=== PATIENT | female | born 1975 | race Caucasian/White ===

== ENCOUNTER → 2022-09-21 12:40 | Outpatient (BNVA) | payer SELFPAY | PROVIDERS: PCP Internal Medicine | DX: Z02.83 Encounter for blood-alcohol and blood-drug test (principal) ==

== ENCOUNTER 2023-08-25 08:18 | Outpatient (AMB) | payer OTHER, SELFPAY ==
--- NOTE | 2023-08-25 08:23 | A.OFFPC_ITS ---
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: No Is last menstrual period known: No Allergies Sulfa (Sulfonamide Antibiotics) Allergy (Unknown, Verified 08/25/23 08:30) Rash tramadol Allergy (Unknown, Verified 08/25/23 08:30) Rash venlafaxine [From Effexor] Allergy (Unknown, Verified 08/25/23 08:30) Rash Tobacco use date assessed: 08/25/23 Dental Screening Dental Screen Date: 08/25/23 Did you have a dental visit in the last 12 months?: Yes Did you have a dental problem in the last 6 months where you did not have access to dental care?: No Was dental information given to patient?: Patient has dentist HPI HPI Comments History of Present Illness Details This is a 48 year old female with a past medical history of hypertension, anxiety & depression, ddd cervical spine, presenting for follow up Presented in Jan 2023 with hypertensive urgency, headaches, tachycardia and tremor. 24 urine with elevated metanephrines. Seen by endocrinology Dr Dockery and in neuroendocrine [facility] [place]. Patient has imaging with adrenal thickening. Empty sella on MRI brain. Has had intermittent elevation in metanephrines. Symptoms and striae concerning for hypercortisolism but labs have not revealed such. She is to repeat labs in 3 months. She continues to have intermittent issues with headaches, vision changes, weakness, striae, skin ulceration, palpitations, anxiety, variable BP. -Family history of medullary thyroid can cer. 1st cousin. Family history (sister) MGUS, mast cell disorder MSK: Worsened bilateral upper exremity neuropathy. History of neck surgery. On oxycodone Anxiety/Insomnia: stable on current medications ROS see HPI PHYSICAL EXAM: GENERAL: Alert and oriented x 3. NAD EYES: EOMI. Anicteric. HENT: Moist mucous membranes. No scleral icterus. No cervical lymphadenopathy. LUNGS: Clear to auscultation bilaterally. CARDIOVASCULAR: Regular rate and rhythm. No murmur. No JVD. ABDOMEN: Soft, non-tender +bs EXTREMITIES: No edema. Non-tender. SKIN: Facial flushing NEUROLOGIC: No focal neurological deficits. CN II-XII grossly intact PSYCHIATRIC: Cooperative. 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 1. Little interest or pleasure in doing things: not at all 2. Feeling down, depressed, or hopeless: not at all 3. Trouble falling or staying asleep, or sleeping too much: not at all 4. Feeling tired or having little energy: not at all 5. Poor appetite or overeating: not at all 6. Feeling bad about yourself - or that you are a failure or have let yourself or your family down: not at all 7. Trouble concentrating on things, such as reading the newspaper or watching television: not at all 8. Moving or speaking so slowly that other people could have noticed. Or the opposite - being so fidgety or restless that you have been moving around a lot more than usual: not at all 9. Thoughts that you would be better off or of hurting yourself in some way: not at all Total score: 0 Depression Screening Interpretation: Negative (neg) Depression Screening Done: Yes 38103 - PHQ-9 Billing: Yes Source: Developed by Drs. Efren Gonzalez, Monet Delgadillo, Juan Goldsmith and colleagues, with an educational lonnie from [employer]. Thrive Questionnaire Date Thrive assessed: 08/25/23 I am a: Patient What is your living situation today?: I have a steady place to live Within the past 12 months, did the food you bought not last and you didn't have the money to get more?: Never true Within the past 12 months, did you worry whether your food would run out before you got money to buy more?: Never true Do you have trouble paying for medicines?: No Do you have trouble getting transportation to medical appointments?: No Do you have trouble paying your heating and electricity bill?: No Do you have trouble taking care of your child, family member or friend?: No Do you have trouble with day-to-day activities such as bathing, preparing meals, shopping, managing finances, etc.?: No Are you currently unemployed and looking for a job?: No Are you interested in more education?: No Please select the resources that you would like help with: None Currently or been in a relationship where the following occur: No concerns reported THRIVE Score: 0 AUDIT C Alcohol Use Questionnaire (AUDIT-C) 1. How often do you have a drink containing alcohol?: Monthly or less 2. How many drinks containing alcohol do you have on a typical day when you are drinking?: 1 or 2 3. How often do you have six or more drinks on one occasion?: Never Total Score: 1 PILY-7 AMB Questionnaire PILY-7 Date PILY - 7 assessed: 08/25/23 Feeling nervous, anxious, or on edge: 0 = Not at all Not being able to stop or control worryin = Not at all Worrying too much about different things: 0 = Not at all Trouble relaxin = Not at all Being so restless that it is hard to sit still: 0 = Not at all Becoming easily annoyed or irritable: 0 = Not at all Feeling afraid as if something awful might happen: 0 = Not at all Total PILY-7 score (0-4 normal; 5-9 mild; 10-14 moderate; 15-21 severe): 0 Source: Developed by Drs. Efren Gonzalez, Monet Delgadillo, Juan Goldsmith and colleagues, with an educational lonnie from [employer]. PILY-7 Assessment Billing PILY-7 Assessment Tool: PILY-7 Assessment 27696 Physical exam (Primary Care) Vital Signs: Last Vital Signs Temp 98.1 F 08/25/23 08:36 Pulse 69 08/25/23 08:36 Resp 16 08/25/23 08:36 BP 126/84 08/25/23 08:36 Pulse Ox 96 08/25/23 08:36 Oxygen Delivery Method Room Air 08/25/23 08:36 BMI result Body Mass Index 45.0 Tobacco/Smoking Status: Tobacco use Status Tobacco use date assessed 08/25/23 08/25/23 08:41 Patient Tobacco Use Status Former Tobacco user 08/25/23 08:41 e-Cigarette/Vaping Use Never Used 08/25/23 08:41 PHQ-9: PHQ-9 Score PHQ-9: Total score 0 08/25/23 08:58 Depression Screening Interpretation: Negative (neg) Thrive Assessment: Date of Thrive Assessment Date Thrive assessed 08/25/23 08/25/23 08:41 Currently or been in a relationship where the following occur: No concerns reported Assessment and Plan Assessment & Plan (1) Hypertension: Code(s): I10 - Essential (primary) hypertension Qualifiers: Hypertension type: primary hypertension Qualified Code(s): I10 - Essential (primary) hypertension Plan: controlled on current medications (2) Degenerative disc disease, cervical: Code(s): M50.30 - Other cervical disc degeneration, unspecified cervical region Plan: stable chronic pain, increased upper extremity neuropathy. Declines physiatry/em g (3) Striae: Code(s): L90.6 - Striae atrophicae Plan: continue lab testing continue dermatology follow up (4) Abnormal cortisol level: Code(s): R79.89 - Other specified abnormal findings of blood chemistry (5) Rash: Code(s): R21 - Rash and other nonspecific skin eruption Orders: Orders Cortisol Random 4 Weeks L90.6 - Striae atrophicae, R79.89 - Other specified abnormal findings of blood chemistry Vitamin B12 and Folate Today G62.9 - Polyneuropathy, unspecified, L90.6 - Striae atrophicae, M50.30 - Other cervical disc degeneration, unspecified cervical region, R79.89 - Other specified abnormal findings of blood chemistry DALE Reflex Titer and Pattern Today G62.9 - Polyneuropathy, unspecified, L90.6 - Striae atrophicae, M50.30 - Other cervical disc degeneration, unspecified cervical region, R79.89 - Other specified abnormal findings of blood chemistry Complete Blood Count Auto Diff Today G62.9 - Polyneuropathy, unspecified, L90.6 - Striae atrophicae, M50.30 - Other cervical disc degeneration, unspecified cervical region, R79.89 - Other specified abnormal findings of blood chemistry Cortisol Random Today L90.6 - Striae atrophicae, R79.89 - Other specified abnormal findings of blood chemistry Cortisol Random 8 Weeks L90.6 - Striae atrophicae, R79.89 - Other specified abnormal findings of blood chemistry Hemoglobin A1c Today G62.9 - Polyneuropathy, unspecified, L90.6 - Striae atrophicae, M50.30 - Other cervical disc degeneration, unspecified cervical region, R79.89 - Other specified abnormal findings of blood chemistry ANCA Vasculitides Today G62.9 - Polyneuropathy, unspecified, L90.6 - Striae atrophicae, M50.30 - Other cervical disc degeneration, unspecified cervical region, R79.89 - Other specified abnormal findings of blood chemistry Comprehensive Met. Panel Today G62.9 - Polyneuropathy, unspecified, L90.6 - Striae atrophicae, M50.30 - Other cervical disc degeneration, unspecified cervical region, R79.89 - Other specified abnormal findings of blood chemistry Tryptase Today R21 - Rash and other nonspecific skin eruption T Spot TB Today R05.9 - Cough, unspecified Medications: New semaglutide (weight loss) (Isai) administer weeks 5 through 8 of therapy 0.5 mg (0.5 mL) subcut QWEEK 6 mL 0RF Changed From alprazolam 1-2 tab orally every 12 hours PRN anxiety. Not to be taken within 6 hours of valium 20 tabs 0RF anxiety To alprazolam (2 x 0.5 mg) 1 mg orally every 12 hours PRN; anxiety. Not to be taken within 6 hours of valium 30 days 60 tabs 0RF anxiety Refilled oxycodone Partial Fill upon patient request. ok for self pay 5 mg PO Q6H 28 days PRN 112 tabs 0RF pain Coding Level of Care Code Est Pt Level 5 (54882) Complex EM visit Add On G2211 Diagnoses Primary hypertension I10 Hypertension type: primary hypertension Degenerative disc disease, cervical M50.30 Striae L90.6 Abnormal cortisol level R79.89 Rash R21 Additional Codes PILY-7 Assessment Billing - PILY-7 Assessment Tool: PILY-7 Assessment [id number] ([id number]) Time Spent (min) 65
[2023-08-25 08:36] VITALS: BP 126/84; PULSE 69; RESP 16; TEMP 36.7; O2SAT 96; BMI 45.0
== END 2023-08-25 09:28 | disposition home or self-care (01) ==
PROVIDERS: Visit Provider Internal Medicine
DX: I10 Essential (primary) hypertension (principal); M50.30 Other cervical disc degeneration, unspecified cervical region; L90.6 Striae atrophicae; R79.89 Other specified abnormal findings of blood chemistry; R21 Rash and other nonspecific skin eruption
CPT/HCPCS: 99215; 99417; G2211

== ENCOUNTER 2023-08-25 09:46 | Outpatient (REF) | payer OTHER, SELFPAY ==
[2023-08-25 13:56] LABS: MANUAL DIFF FLAG NO
[2023-08-25 14:05] LABS: Basophils Percent Auto 0.6 % (0-2); Eosinophils Absolute Auto 0.2 X10*3/uL (0.0-0.4); Eosinophils Percent Auto 3.3 % (0-4); Hematocrit 38.2 % (37.0-47.0); Hemoglobin 12.6 g/dl (12.0-16.0); Imm Gran Abs Auto 0.03 X10*3/uL (0.00-0.03); Imm Gran Pct Auto 0.4 % (0.0-0.4); Lymphocytes Absolute Auto 1.8 X10*3/uL (1.2-4.9); Lymphocytes Percent Auto 25.7 % (20-40); Mean Corpuscular Hemoglobin 30.2 pg (27.0-33.0); Mean Corpuscular Volume 91.6 fL (80.0-98.0); Mean Platelet Volume 9.8 fL (9.4-12.3); Monocytes Absolute Auto 0.4 X10*3/uL (0.1-1.2); Neutrophils Absolute Auto 4.6 x10*3/uL (2.0-8.3); Platelet Count 374 X10*3/uL (160-400); Red Blood Count 4.17 X10*6/uL (4.20-5.50); Red Cell Distribution Width 13.7 % (11.0-16.0); White Blood Count 7.1 X10*3/uL (4.8-10.8)
[2023-08-25 15:03] LABS: Estimated Average Glucose 111 mg/dL; Hemoglobin A1c % 5.5 % (<6.0)
[2023-08-25 21:00] LABS: Alanine Aminotransferase 26 U/L (0-31); Alkaline Phosphatase 71 U/L (39-117); Anion Gap 15 (12-20); Aspartate Amino Transferase 24 U/L (5-31); Bilirubin Total 0.4 mg/dL (0.0-1.0); Blood Urea Nitrogen 9 mg/dL (9-16); Calcium 9.3 mg/dL (8.4-10.2); Carbon Dioxide 27 mmol/L (22-29); Chloride 103 mmol/L (96-108); Estimated Glomerular Filt Rate > 60; Glucose Random 96 mg/dL (60-115); Potassium 3.8 mmol/L (3.3-5.1); Sodium 141 mmol/L (135-145); Total Protein 6.8 g/dL (6.5-8.0)
[2023-08-25 21:26] LABS: Folate 3.2 ng/mL (> or = 4.0); Vitamin B12 235 pg/mL (200-900)
[2023-08-25 22:05] LABS: Cortisol Random 11.6 ug/dL
[2023-08-27 21:43] LABS: TS Negative Control Passed; TS Panel A 2; TS Panel B 2; TS Positive Control Passed; TSpotTB Negative (Negative)
[2023-08-28 21:13] LABS: Myeloperoxidase Antibody <1.0 AI; Proteinase 3 PR3 Antibodies <1.0 AI
[2023-09-01 09:28] LABS: Anti Nuclear Antibody Screen NEGATIVE (NEGATIVE)
== END 2023-08-25 09:47 | disposition home or self-care (01) ==
LOC: HO.WFDLDS 09:46
PROVIDERS: Visit Provider Internal Medicine
DX: R79.89 Other specified abnormal findings of blood chemistry (principal); L90.6 Striae atrophicae; M50.30 Other cervical disc degeneration, unspecified cervical region; G62.9 Polyneuropathy, unspecified; R05.9 Cough, unspecified; R21 Rash and other nonspecific skin eruption; R94.6 Abnormal results of thyroid function studies
CPT/HCPCS: 36415; 80053; 82533; 82607; 82746; 83036; 83520; 84443; 85025; 86021; 86038; 86481

== ENCOUNTER 2023-11-10 15:50 | Outpatient (AMB) | payer OTHER, SELFPAY ==
--- NOTE | 2023-11-10 14:54 | A.OFFPC_ITS ---
Intake Visit Reasons: neck/head pain Intake Note: Neck and head pain Allergies Sulfa (Sulfonamide Antibiotics) Allergy (Unknown, Verified 11/10/23 15:39) Rash tramadol Allergy (Unknown, Verified 11/10/23 15:39) Rash venlafaxine [From Effexor] Allergy (Unknown, Verified 11/10/23 15:39) Rash Tobacco use date assessed: 08/25/23 Dental Screening Dental Screen Date: 08/25/23 HPI HPI Comments History of Present Illness Details This is a 48 year old female with a past medical history of hypertension, anxiety & depression, ddd cervical spine, cerebral aneurysm, presenting for follow up Patient reports a 1 week history of excruciating pain in her right occipital a miguel-travels up the head mid way, but is intensely severe at times in the occiput. It is a sharp, burning, shooting pain. It actually hurts the scalp; washing & brushing the hair exacerbates the pain. She cannot lay down or put any pressure on the neck lower head. Nothing is alleviating the pain. Tried ibuprofen and/or Tylenol, ice/heat, etc. No injury Presented in Jan 2023 with hypertensive urgency, headaches, tachycardia and tremor. 24 urine with elevated metanephrines. Seen by endocrinology Dr Dockery and in neuroendocrine [facility] [place] Patient has imaging with adrenal thickening. Empty sella on MRI brain. Has had intermittent elevation in metanephrines. Symptoms and striae concerning for hypercortisolism but labs have not revealed such. She is to repeat labs in 3 months. She continues to have intermittent issues with headaches, vision changes, weakness, striae, skin ulceration, palpitations, anxiety, variable BP. -Family history of medullary thyroid can cer. 1st cousin. Family history (sister) MGUS, mast cell disorder MSK: Worsened bilateral upper exremity neuropathy. History of neck surgery. On oxycodone Anxiety/Insomnia: stable on current medications ROS see HPI [facility] Medical History Vitamin D deficiency Right shoulder pain Non-infective diarrhea Mixed anxiety and depressive disorder Mild persistent asthma Hyperlipidemia Headache Cyst of nasopharynx Cobalamin deficiency Cervical radiculopathy Cerebral arterial aneurysm Body mass index 40.0-44.9, adult ADHD Family History (Updated 08/25/23 @ 08:41 by Jacque Braxton CMA) Other FH: mental illness Social History (Updated 08/25/23 @ 08:41 by Jacque Braxton CMA) Housing: House Patient Tobacco Use Status: Former Tobacco user Cigarette Packs Per Day: 1 Years Smoked: 5 Packs Per Year: 5 e-Cigarette/Vaping Use: Never Used service: No Current occupational status: employed 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 Efren Gonzalez, Monet Delgadillo, Juan Goldsmith and colleagues, with an educational lonnie from [employer]. Physical exam (Primary Care) Tobacco/Smoking Status: Tobacco use Status Tobacco use date assessed 08/25/23 11/10/23 14:54 Patient Tobacco Use Status Former Tobacco user 11/10/23 14:54 e-Cigarette/Vaping Use Never Used 11/10/23 14:54 Thrive Assessment: Date of Thrive Assessment Date Thrive assessed 08/25/23 11/10/23 14:54 Telehealth Telehealth Telehealth Platform: [facility] Location of provider rendering services: practice address Location of patient: address on file Patient Identification confirmed using: Name, : Yes Telehealth method: voice only Patient verbally consented to treatment: Yes Patient verbally consented to billing insurance company: Yes Patient informed of any privacy concerns related to visit: Yes Minutes spent on Phone/Video with Pt.: 32 Coding Level of Care Code Tele Est Pt Level 4 (08679) Diagnoses Occipital pain R51.9 Assessment & Plan Assessment & Plan (1) Occipital pain: Code(s): R51.9 - Headache, unspecified Category: Medical Plan: Discussed cervical radiculopathy, versus shingles (no rash/lesions), versus aneurysm (she has h/o left sided), vs GCA. Mostly likely cervical radiculopathy, cervicalgia given her history of cervical spine surgery. Prednisone sent. Advised ER if BP high and pain persistent or worsening. If no improvement with conservative measures, prednisone will get imaging, refer to spine etc. Medications: New prednisone 40 mg (2 x 20 mg) PO DAILY 10 tabs 0RF 5 days
== END 2023-11-10 16:59 | disposition home or self-care (01) ==
LOC: HO.HMCFM 15:50
PROVIDERS: PCP Internal Medicine; Visit Provider Internal Medicine
DX: R51.9 Headache, unspecified (principal)

== ENCOUNTER → 2023-11-10 15:50 | Outpatient (BNVA) | payer OTHER, SELFPAY | PROVIDERS: PCP Internal Medicine; Visit Provider Internal Medicine ==

== ENCOUNTER → 2023-11-17 15:37 | Outpatient (AMB) | payer OTHER, SELFPAY ==
--- NOTE | 2023-11-17 17:40 | MHC.PC.OV ---
Intake Visit Reasons: per provider Allergies Sulfa (Sulfonamide Antibiotics) Allergy (Unknown, Verified 11/10/23 15:39) Rash tramadol Allergy (Unknown, Verified 11/10/23 15:39) Rash venlafaxine [From Effexor] Allergy (Unknown, Verified 11/10/23 15:39) Rash Tobacco use date assessed: 08/25/23 Dental Screening Dental Screen Date: 08/25/23 HPI HPI Comments History of Present Illness Details This is a 48 year old female with a past medical history of hypertension, anxiety & depression, ddd cervical spine, cerebral aneurysm, presenting for follow up Patient neck pain and right hip pain with some minimal improvement on prednisone. Neck pain and hip pain both started ~2 weeks ago. Patient reports a 1 week history of excruciating pain in her right occipital area-travels up the head mid way, but is intensely severe at times in the occiput. It is a sharp, burning, shooting pain. It actually hurts the scalp; washing & brushing the hair exacerbates the pain. She cannot lay down or put any pressure on the neck lower head. Nothing is alleviating the pain. Tried ibuprofen and/or Tylenol, ice/heat, etc. No injury She had labs drawn last week. She had elevated ESR, CRP. Cortisol and TSH were normal. Presented in Jan 2023 with hypertensive urgency, headaches, tachycardia and tremor. 24 urine with elevated metanephrines. Seen by endocrinology Dr Dockery and in neuroendocrine [facility] [place] Patient has imaging with adrenal thickening. Empty sella on MRI brain. Has had intermittent elevation in metanephrines. Symptoms and striae concerning for hypercortisolism but labs have not revealed such. She is to repeat labs in 3 months. She continues to have intermittent issues with headaches, vision changes, weakness, striae, skin ulceration, palpitations, anxiety, variable BP. -Family history of medullary thyroid cancer. 1st cousin. Family history (sister) MGUS, mast cell disorder MSK: Worsened bilateral upper exremity neuropathy. History of neck surgery. On oxycodone Anxiety/Insomnia: stable on current medications ROS see HPI PHYSICAL EXAM: Telehealth [facility] Medical History (Updated 11/17/23 @ 15:17 by Lynne Jean MD) Vitamin D deficiency Right shoulder pain Non-infective diarrhea Mixed anxiety and depressive disorder Mild persistent asthma Hyperlipidemia Headache Cyst of nasopharynx Cobalamin deficiency Cervical radiculopathy Cerebral arterial aneurysm Body mass index 40.0-44.9, adult ADHD Family History (Updated 08/25/23 @ 08:41 by Jacque Braxton CMA) Other FH: mental illness Social History (Updated 08/25/23 @ 08:41 by Jacque Braxton CMA) Housing: House Patient Tobacco Use Status: Former Tobacco user Cigarette Packs Per Day: 1 Years Smoked: 5 e-Cigarette/Vaping Use: Never Used service: No Current occupational status: employed 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 Efren Gonzalez, Monet Delgadillo, Juan Goldsmith and colleagues, with an educational lonnie from [employer]. Physical exam (Primary Care) Tobacco/Smoking Status: Tobacco use Status Tobacco use date assessed 08/25/23 11/17/23 15:19 Patient Tobacco Use Status Former Tobacco user 11/17/23 15:19 e-Cigarette/Vaping Use Never Used 11/17/23 15:19 Thrive Assessment: Date of Thrive Assessment Date Thrive assessed 08/25/23 11/17/23 15:19 Telehealth Telehealth Telehealth Platform: [facility] Location of provider rendering services: practice address Location of patient: address on file Patient Identification confirmed using: Name, : Yes Telehealth method: voice only Patient verbally consented to treatment: Yes Patient verbally consented to billing insurance company: Yes Patient informed of any privacy concerns related to visit: Yes Minutes spent on Phone/Video with Pt.: 35 Coding Level of Care Code Tele Est Pt Level 4 (82775) Diagnoses Cervical radiculopathy M54.12 Left hip pain M25.552 Right hip pain M25.551 Assessment & Plan Assessment & Plan (1) Cervical radiculopathy: Code(s): M54.12 - Radiculopathy, cervical region Category: Medical Plan: xray ordered oxycodone PA is still pending. She may pay out of pocket. (2) Left hip pain: Code(s): M25.552 - Pain in left hip Category: Medical Plan: xr ordered (3) Right hip pain: Code(s): M25.551 - Pain in right hip Category: Medical Plan: prednisone had decreased severity of pain but still considerable. xray ordered.
== END ==
LOC: HO.HMCFM 15:37
PROVIDERS: PCP Internal Medicine; Visit Provider Internal Medicine
DX: M54.12 Radiculopathy, cervical region (principal); M25.552 Pain in left hip; M25.551 Pain in right hip

== ENCOUNTER → 2023-11-17 15:37 | Outpatient (BNVA) | payer OTHER, SELFPAY | PROVIDERS: PCP Internal Medicine; Visit Provider Internal Medicine ==

== ENCOUNTER 2023-11-27 10:47 | Outpatient (AMB) | payer OTHER, SELFPAY ==
--- NOTE | 2023-11-27 10:27 | A.OFFPC_ITS ---
Intake Visit Reasons: 3 month F/U Allergies Sulfa (Sulfonamide Antibiotics) Allergy (Unknown, Verified 11/10/23 15:39) Rash tramadol Allergy (Unknown, Verified 11/10/23 15:39) Rash venlafaxine [From Effexor] Allergy (Unknown, Verified 11/10/23 15:39) Rash Tobacco use date assessed: 08/25/23 Dental Screening Dental Screen Date: 08/25/23 HPI HPI Comments History of Present Illness Details This is a 48 year old female with a past medical history of hypertension, anxiety & depression, ddd cervical spine, cerebral aneurysm, presenting for follow up Patient neck pain and right hip pain with some minimal improvement on prednisone. Neck pain and hip pain both started ~4 weeks ago. Patient reports a 1 week history of excruciating pain in her right occipital area-travels up the head mid way, but is intensely severe at times in the occiput. It is a sharp, burning, shooting pain. It actually hurts the scalp; washing & brushing the hair exacerbates the pain. She cannot lay down or put any pressure on the neck lower head. Nothing is alleviating the pain. Tried ibuprofen and/or Tylenol, ice/heat, etc. No injury She had labs drawn last week. She had elevated ESR-23, CRP 9.6. Cortisol and TSH were normal. Pain continues to be more than basline, better than outset. Cervical xray with postoperative changes anterior fusion hardware at C3-C4 and disc spacer at C4-C5. Partial fusion of C3 and C4 vertebral bodies. Unchanged approximately 0.3 cm anterolisthesis C4 on C5. Mild neuroforaminal narrowing at C4-C5 [id number]-right. MSK: Worsened bilateral upper exremity neuropathy. History of neck surgery. On oxycodone Anxiety/Insomnia: stable on current medications For the past 4 days with sinus congestion, cough, pain in her lungs. Daughter and partner both had pneumonia recently. Wheezing the past two night. Presented in Jan 2023 with hypertensive urgency, headaches, tachycardia and tremor. 24 urine with elevated metanephrines. Seen by endocrinology Dr Dockery and in neuroendocrine [facility] [place]. Patient has imaging with adrenal thickening. Empty sella on MRI brain. Has had intermittent elevation in metanephrines. Symptoms and striae concerning for hypercortisolism but labs have not revealed such. She is to repeat labs in 3 months. She continues to have intermittent issues with headaches, vision changes, weakness, striae, skin ulceration, palpitations, anxiety, variable BP. -Family history of medullary thyroid can cer. 1st cousin. Family history (sister) MGUS, mast cell disorder ROS see HPI PHYSICAL EXAM: Telehealth [facility] Medical History (Updated 11/27/23 @ 11:11 by Lynne Jean MD) Vitamin D deficiency Right shoulder pain Non-infective diarrhea Mixed anxiety and depressive disorder Mild persistent asthma Hyperlipidemia Headache Cyst of nasopharynx Cobalamin deficiency Cervical radiculopathy Cerebral arterial aneurysm Body mass index 40.0-44.9, adult ADHD Family History (Updated 08/25/23 @ 08:41 by Jacque Braxton CMA) Other FH: mental illness Social History (Updated 08/25/23 @ 08:41 by Jacque Braxtno CMA) Housing: House Patient Tobacco Use Status: Former Tobacco user Cigarette Packs Per Day: 1 Years Smoked: 5 e-Cigarette/Vaping Use: Never Used service: No Current occupational status: employed 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 Efren Gonzalez, Monet Delgadillo, Juan Goldsmith and colleagues, with an educational lonnie from [employer]. Physical exam (Primary Care) Tobacco/Smoking Status: Tobacco use Status Tobacco use date assessed 08/25/23 11/27/23 10:27 Patient Tobacco Use Status Former Tobacco user 11/27/23 10:27 e-Cigarette/Vaping Use Never Used 11/27/23 10:27 Thrive Assessment: Date of Thrive Assessment Date Thrive assessed 08/25/23 11/27/23 10:27 Telehealth Telehealth Telehealth Platform: [facility] Location of provider rendering services: practice address Location of patient: address on file Patient Identification confirmed using: Name, : Yes Telehealth method: voice only Patient verbally consented to treatment: Yes Patient verbally consented to billing insurance company: Yes Patient informed of any privacy concerns related to visit: Yes Minutes spent on Phone/Video with Pt.: 33 Coding Level of Care Code Tele Est Pt Level 4 (39316) Diagnoses Cerebral aneurysm without rupture I67.1 Cervical radiculopathy M54.12 Right hip pain M25.551 Respiratory infection J98.8 Assessment & Plan Assessment & Plan (1) Cerebral aneurysm without rupture: Code(s): I67.1 - Cerebral aneurysm, nonruptured Category: Medical Plan: MR ordered (2) Cervical radiculopathy: Code(s): M54.12 - Radiculopathy, cervical region Category: Medical Plan: MRI neck ordered Referral to physiatry. PT contraindicated until patient completes MRI Try adding lyrica (3) Right hip pain: Code(s): M25.551 - Pain in right hip Category: Medical Plan: referred to physiatry (4) Respiratory infection: Code(s): J98.8 - Other specified respiratory disorders Category: Medical Plan: Given symptoms, close PNA contact -sharing drinks-will cover for potential pneumonia with doxycycline Orders: Orders MR angio head wo con Today I67.1 - Cerebral aneurysm, nonruptured MR cervical spine wo con Today I67.1 - Cerebral aneurysm, nonruptured, M54.12 - Radiculopathy, cervical region, Z98.890 - Other specified postprocedural states Referrals Physiatry Referral M25.551 - Pain in right hip, M54.12 - Radiculopathy, cervical region Medications: New doxycycline hyclate 100 mg PO BID 20 tabs 3RF prednisone 40 mg (2 x 20 mg) PO DAILY 5 days 10 tabs 0RF pregabalin (Lyrica) 75 mg PO BID 180 caps 3RF
== END 2023-11-27 11:01 | disposition home or self-care (01) ==
LOC: HO.HMCFM 10:47
PROVIDERS: PCP Internal Medicine; Visit Provider Internal Medicine
DX: I67.1 Cerebral aneurysm, nonruptured (principal); M54.12 Radiculopathy, cervical region; M25.551 Pain in right hip; J98.8 Other specified respiratory disorders

== ENCOUNTER → 2023-11-27 10:47 | Outpatient (BNVA) | payer OTHER, SELFPAY | PROVIDERS: PCP Internal Medicine; Visit Provider Internal Medicine | DX: M54.12 Radiculopathy, cervical region (principal); M25.551 Pain in right hip; I67.1 Cerebral aneurysm, nonruptured; Z98.890 Other specified postprocedural states ==

== ENCOUNTER 2024-02-10 09:41 | Outpatient (AMB) | payer OTHER, SELFPAY ==
--- NOTE | 2024-02-10 12:52 | MHC.OFFWIV ---
Intake Vital Signs 02/10/24 13:02 Weight 281 lb BP 126/82 Blood Pressure Location Lt brachial Position Sitting Pulse 64 Pulse Source Pulse Oximeter Temp 97.7 F Temp Source Oral Intake Visit Reasons: EP SOB, chest congested, cough, fever Intake Note: Patient here for SOB, chest congestion, wheezing that has been present for about 10 days. Patient Tobacco Use Status: Former Tobacco user Allergies Sulfa (Sulfonamide Antibiotics) Allergy (Unknown, Verified 02/10/24 13:04) Rash tramadol Allergy (Unknown, Verified 02/10/24 13:04) Rash venlafaxine [From Effexor] Allergy (Unknown, Verified 02/10/24 13:04) Rash Do you need a note to return to daycare/school/sports/work: No HPI EP SOB, chest congested, cough, fever HPI Details Patient is a 48-year-old female with history of cerebral aneurysm, obesity, degenerative disc disease, hypertension, polymyalgia and fatigue who is undergoing endocrinology workup for Hondo diagnosis. She reports that she also has history of reactive airway disease with illnesses, and had recent bronchitis and pneumonia diagnoses since developing symptoms of Eveline's. She reports starting with viral respiratory symptoms about a week and a half ago, and was started on a course of doxycycline for possible pneumonia by her PCP about a week ago, along with a short course of 40 mg prednisone. She reports the symptoms have not improved, and has been worsening in regards to chest tightness, reactive cough, and hoarse voice. She has albuterol which she uses at home, and gives her temporary relief of symptoms. She does not report nausea or vomiting or diarrhea, weakness or dizziness, chest pain, myalgias or malaise, fever chills, sore throat, or other significant associated symptoms. 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 Current occupational exposures/hazards: No Cognitive needs: No Hearing needs: No Vision needs: No Review of Systems Const All systems reviewed & are unremarkable except as noted in HPI and below Physical Exam Const General: cooperative, comfortable, alert, awake, Physically active, in distress, ill appearing and well groomed; No anxious, diaphoretic, intoxicated appearing, poor hygiene or tired appearing Nutritional Appearance: obese Orientation/consciousness: patient oriented x3 Limitations: no limitations Eyes General: appearance normal, both eyes and all related structures Neck Neck: Yes normal visual inspection, Yes full ROM, Yes no lymphadenopathy, Yes trachea midline, Yes supple and No anterior neck swelling Resp Effort & Inspection: normal respiratory effort, able to speak in complete sentences (Few word sentences due to cough interrupting), no audible wheezes, Actively coughing Quality: actively coughing, no grunting, not labored, no nasal flaring, no respiratory distress, no retractions, no stridor, no tripod positioning, symmetric chest movement and other (Diminished air movement bilaterally) Auscultation: clear to auscultation bilaterally, no crackles, no rales, no rhonchi, wheezes expiratory wheezes, diminished lung sounds and No rub present Cardio Palpation: normal PMI Rate: regular rate Rhythm: regular rhythm Heart sounds: S1 normal heart sound present and S2 normal heart sound present Skin Other: Good color, warm and dry Neuro General: patient oriented x3 Psych Appearance: grossly normal Mental Status: mental status grossly normal Speech and movement: Normal speech and movement present Affect: normal affect Attitude: cooperative Thought process: Normal thought process present Insight: Good insight present (Psych) Judgement: Good judgement present (Psych) Office Procedures Nebulizer Treatment Nebulizer Treatment [id number]/MDI RX initial, or Nebulizer Subsequent Treatment Assessment & Plan Assessment & Plan (1) Reactive airway disease with acute exacerbation: Code(s): J45.901 - Unspecified asthma with (acute) exacerbation Qualifiers: Asthma severity: unspecified severity Asthma persistence: unspecified Qualified Code(s): J45.901 - Unspecified asthma with (acute) exacerbation Plan Patient is a 48-year-old female with underlying history associated with 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 Flu COVID and RSV results are pending. Her chest tightness and cough improved with a DuoNeb treatment, and so I wrote her a prescription for ipratropium bromide to add to her albuterol use at home as needed. As she did not find relief with the 40 mg dose of prednisone, I wrote her for a 60 mg dose to taper (she does have a history of reduced response to steroids) as well as high-dose amoxicillin and azithromycin to cover community-acquired pneumonia due to her underlying immunocompromised state and her presentation. Her chest x-ray showed decreased lung volumes, and hazy appearance overall, but no clear line of consolidation. We discussed that she should monitor symptoms closely and follow up if she worsens, and go to the emergency department with worrisome symptoms. 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 Orders: Orders XR chest 2V Today R05.9 - Cough, unspecified SARS-CoV2/FLU/RSV Today J06.9 - Acute upper respiratory infection, unspecified Medications: New prednisone then take 2 and half tabs daily for 3 days, then take 2 tabs daily for 3 days, then take 1 and half tabs daily for 3 days, and then take 1 tab daily for 3 days 60 mg (3 x 20 mg) PO DAILY 3 days 30 tabs 0RF ipratropium bromide 17 mcg/actuation 1 puff inhalation QID 12.9 grams 0RF amoxicillin 1,000 mg (2 x 500 mg) PO TID 5 days 30 tabs 0RF azithromycin For 250 mg dose pack: take 500 mg today (day 1), then 250 mg for 4 days (days 2-5) PO 6 tabs 0RF Coding Level of Care Code Est Pt Level 4 (87210) Diagnoses Reactive airway disease with acute exacerbation, unspecified asthma severity, unspecified whether persistent J45.901 Asthma severity: unspecified severity Asthma persistence: unspecified CPT Codes Nebulizer Treatment - Nebulizer Treatment, initial or subsequent: [id number]/MDI RX initial, or Nebulizer Subsequent Treatment ([id number])
[2024-02-10 13:02] VITALS: BP 126/82; PULSE 64; TEMP 36.5
== END 2024-02-10 13:58 | disposition home or self-care (01) ==
PROVIDERS: PCP Internal Medicine; Visit Provider Physician Assistant Medical
DX: J45.901 Unspecified asthma with (acute) exacerbation (principal)

== ENCOUNTER → 2024-02-10 09:41 | Outpatient (BNVA) | payer OTHER, SELFPAY | PROVIDERS: PCP Internal Medicine; Visit Provider Physician Assistant Medical ==

== ENCOUNTER 2024-02-10 13:12 | Outpatient (REF) | payer OTHER, SELFPAY ==
--- NOTE | ~2024-02-10 | XR_ITS ---
CLINICAL HISTORY: R05.9 - Cough, unspecified Two views of the chest. COMPARISON: None FINDINGS: Low lung volumes. Borderline cardiomegaly. Prominence of the central pulmonary vasculature. No consolidation. No pleural effusion or pneumothorax. Mild spondylosis. No fracture identified. IMPRESSION: 1. Low lung volumes. No consolidation. 2. Borderline cardiomegaly with mild pulmonary vascular congestion. This document has been electronically signed by: Gurjit Fu MD on 02/10/2024 14:01:40
[2024-02-10 16:02] LABS: Influenza A PCR NEGATIVE (Negative); Influenza B PCR NEGATIVE (Negative); Resp Syncy Virus RNA Qual PCR NEGATIVE (Negative); SARS COV2 PCR INHOUSE NEGATIVE (Negative)
== END 2024-02-10 13:13 | disposition home or self-care (01) ==
LOC: HO.HMGCX 13:12
PROVIDERS: PCP Internal Medicine; Visit Provider Physician Assistant Medical
DX: R05.9 Cough, unspecified (principal); J06.9 Acute upper respiratory infection, unspecified; J45.901 Unspecified asthma with (acute) exacerbation
CPT/HCPCS: 0241U; 71046; 94640

== ENCOUNTER → 2024-02-10 13:17 | Outpatient (BNV) | payer OTHER, SELFPAY | PROVIDERS: PCP Internal Medicine; Visit Provider Radiology Diagnostic Radiology | DX: J81.1 Chronic pulmonary edema (principal); I51.7 Cardiomegaly; R06.89 Other abnormalities of breathing | CPT/HCPCS: 71046 ==

== ENCOUNTER 2024-02-13 14:12 | Outpatient (REF) | payer OTHER, SELFPAY ==
[2024-02-13 16:28] LABS: D Dimer High Sensitivity 233 NG/ML
[2024-02-13 16:37] LABS: Monotest Negative (Negative)
[2024-02-13 16:48] LABS: TSH reflex Free T4 1.86 uIU/mL (0.32-4.0)
[2024-02-13 16:52] LABS: Cortisol Random 5.1 ug/dL
[2024-02-13 19:01] LABS: Erythrocyte Sedimentation Rate 16 MM/HR (0-20)
[2024-02-14 18:33] LABS: Thyroid Peroxidase Antibodies <1 IU/mL (<9)
[2024-02-14 19:54] LABS: Lyme Abs Screen <0.90 index
[2024-02-14 20:03] LABS: CRP High Sensitivity 7.4 mg/L
[2024-02-16 06:34] LABS: Babesia IgG <1:64 titer (<1:64); Babesia IgM <1:20 titer (<1:20)
[2024-02-16 07:13] LABS: A. Phagocytophilum Ab IgG <1:64 (<1:64); A. Phagocytophilum Ab IgM <1:20 (<1:20); E. Chaffeensis Ab IgG <1:64 (<1:64); E. Chaffeensis Ab IgM <1:20 (<1:20)
[2024-02-18 00:24] LABS: HLA B27 Positive (Negative)
[2024-02-18 08:08] LABS: VITAMIN D (1,25 OH) D3 39 pg/mL; Vit D (1,25-Dihydroxy) Total 39 pg/mL (18-72); Vitamin D (1,25 OH) D2 <8 pg/mL
== END 2024-02-13 14:13 | disposition home or self-care (01) ==
LOC: HO.HMGCLDS 14:12
PROVIDERS: PCP Internal Medicine; Visit Provider Internal Medicine
DX: R51.9 Headache, unspecified (principal); R94.6 Abnormal results of thyroid function studies; R79.89 Other specified abnormal findings of blood chemistry; L90.6 Striae atrophicae; M35.3 Polymyalgia rheumatica; R53.83 Other fatigue; R06.02 Shortness of breath
CPT/HCPCS: 36415; 82533; 82652; 84443; 85379; 85652; 86141; 86308; 86376; 86617; 86618; 86666; 86753; 86812

== ENCOUNTER 2024-02-20 15:28 | Outpatient (AMB) | payer OTHER, SELFPAY ==
--- NOTE | 2024-02-20 13:24 | A.OFFPC_ITS ---
Intake Visit Reasons: follow up Allergies Sulfa (Sulfonamide Antibiotics) Allergy (Unknown, Verified 02/10/24 13:04) Rash tramadol Allergy (Unknown, Verified 02/10/24 13:04) Rash venlafaxine [From Effexor] Allergy (Unknown, Verified 02/10/24 13:04) Rash Tobacco use date assessed: 08/25/23 Dental Screening Dental Screen Date: 08/25/23 HPI HPI Comments History of Present Illness Details This is a 48 year old female with a past medical history of hypertension, anxiety & depression, ddd cervical spine, cerebral aneurysm, presenting for follow up Patient suffering from shortness of breath, cough for the past 3 weeks. She contacted the office. Was placed on prednisone and antibiotic therapy. She has not felt any improvement. Hard to walk across a room-gets short of breath. CXR without visible pneumonia. Evidence of potential pulmonary htn. Ddimer was negative. HLA [id number] previously ran and abnormal. Her CRP was elevated. Family history of early CAD in 30s. She endorses fluid retention predating start of prednisone. Improves temporarily with furosemide. MSK: Worsened bilateral upper exremity neuropathy. History of neck surgery. On oxycodone. Neck pain continues to be heightened. Has had elevated ESR-23, CRP 9.6. Cortisol and TSH were normal. Pain continues to be more than basline, better than outset. Cervical xray with postoperative changes anterior fusion hardware at C3-C4 and disc spacer at C4-C5. Partial fusion of C3 and C4 vertebral bodies. Unchanged approximately 0.3 cm anterolisthesis C4 on C5. Mild neuroforaminal narrowing at C4-C5 [id number]-lrhh-right. Anxiety/Insomnia: stable on current medications Presented in Jan 2023 with hypertensive urgency, headaches, tachycardia and tremor. 24 urine with elevated metanephrines. Seen by endocrinology Dr Dockery and in neuroendocrine [facility] [place]. Patient has imaging with adrenal thickening. Empty sella on MRI brain. Has had intermittent elevation in metanephrines. Symptoms and striae concerning for hypercortisolism but labs have not revealed such. She is to repeat labs in 3 months. She continues to have intermittent issues with he adaches, vision changes, weakness, striae, skin ulceration, palpitations, anxiety, variable BP. -Family history of medullary thyroid can cer. 1st cousin. Family history (sister) MGUS, mast cell disorder ROS see HPI PHYSICAL EXAM: Telehealth [facility] Medical History Vitamin D deficiency Right shoulder pain Non-infective diarrhea Mixed anxiety and depressive disorder Mild persistent asthma Hyperlipidemia Headache Cyst of nasopharynx Cobalamin deficiency Cervical radiculopathy Cerebral arterial aneurysm Body mass index 40.0-44.9, adult ADHD Family History Other FH: mental illness Social History Housing: House Patient Tobacco Use Status: Former Tobacco user Cigarette Packs Per Day: 1 Years Smoked: 5 Packs Per Year: 5 e-Cigarette/Vaping Use: Never Used service: No Current occupational status: employed 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 Efren Gonzalez, Monet Delgadillo, Juan Goldsmith and colleagues, with an educational lonnie from [employer]. Physical exam (Primary Care) Tobacco/Smoking Status: Tobacco use Status Tobacco use date assessed 08/25/23 02/20/24 13:28 Patient Tobacco Use Status Former Tobacco user 02/20/24 13:28 e-Cigarette/Vaping Use Never Used 02/20/24 13:28 Thrive Assessment: Date of Thrive Assessment Date Thrive assessed 08/25/23 02/20/24 13:28 Telehealth Telehealth Telehealth Platform: [facility] Location of provider rendering services: practice address Location of patient: address on file Patient Identification confirmed using: Name, : Yes Telehealth method: voice only Patient verbally consented to treatment: Yes Patient verbally consented to billing insurance company: Yes Patient informed of any privacy concerns related to visit: Yes Minutes spent on Phone/Video with Pt.: 45 Coding Level of Care Code Tele Est Pt Level 5 (09426) Diagnoses Shortness of breath R06.02 Respiratory infection J98.8 Polymyalgia M35.3 Assessment & Plan Assessment & Plan (1) Shortness of breath: Code(s): R06.02 - Shortness of breath Category: Medical Plan: Will obtain CTA. Continue current medications pending results (2) Respiratory infection: Code(s): J98.8 - Other specified respiratory disorders Category: Medical Plan: see above (3) Polymyalgia: Code(s): M35.3 - Polymyalgia rheumatica Category: Medical Plan: Polyarthralgia, chronic neck and back pain, hip pain. elevated inflammatory markers. +HLA b27 discussed non specific. She has multisystem issues-has seen neuroendocrine for worry about elevated catecholamines. No neuroendocrine masses seen on imaging. Following for thyroid. ?[facility]. In any case will refer to rheumatology for evaluation. Has evidence of possible pulm htn, LVH-will send back to cardiology
== END 2024-02-20 17:05 | disposition home or self-care (01) ==
LOC: HO.HMCFM 15:28
PROVIDERS: PCP Internal Medicine; Visit Provider Internal Medicine
DX: R06.02 Shortness of breath (principal); J98.8 Other specified respiratory disorders; M35.3 Polymyalgia rheumatica

== ENCOUNTER 2024-03-05 14:26 | Outpatient (AMB) | payer OTHER, SELFPAY ==
--- NOTE | 2024-03-05 14:41 | MHC.PC.OV ---
Vital Signs 03/05/24 14:51 Height 5 ft 4.37 in BP 112/82 Blood Pressure Location Rt brachial Position Sitting Respiration 16 Pulse 72 Pulse Source Pulse Oximeter Pulse Oximetry (%) 99 Oxygen Delivery Method Room Air Intake Visit Reasons: Hospital follow up Intake Note: Hospital follow up. Hasn't taken blood pressure medication in a week, has been running low. hasn't taken b12 in over a month. Hasn't taken Wegovy or Lyrica with everything going on. 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 She contacted the office. Was placed on prednisone and antibiotic therapy. She did not feel any improvement. CXR without visible pneumonia. Evidence of potential pulmonary htn. Ddimer was negative. HLA q70-feuxqgv previously ran and abnormal. Her CRP was elevated. Family history of early CAD in 30s. She endorses fluid retention predating start of prednisone. Improves temporarily with furosemide. CTA was ordered but delayed. Ended up going to [facility] ER-had CTA with PEs, bilateral lower lobe consolidations. No LE DVTs. No provoking event. Started on AC. Referral to heme pending. Referral to cardiology pending-has seen them in the past. Echocardiogram has been ordered. Still will shortness of breath and wheezing. Cough persists but has improved slightly. 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 Unable to ambulate enough to do so. Has been working at home but requires rest. MSK: Worsened bilateral upper extremity neuropathy. History of neck surgery. On oxycodone. Neck pain continues to be heightened. Has had elevated ESR-23, CRP 9.6. Cortisol and TSH were normal. Pain continues to be more than basline, better than outset. Cervical xray with postoperative changes anterior fusion hardware at C3-C4 and disc spacer at C4-C5. Partial fusion of C3 and C4 vertebral bodies. Unchanged approximately 0.3 cm anterolisthesis C4 on C5. Mild neuroforaminal narrowing at C4-C5 ojgx-jonyrfs-drrm-right. Anxiety/Insomnia: stable on current medications Presented in Jan 2023 with hypertensive urgency, headaches, tachycardia and tremor. 24 urine with elevated metanephrines. Seen by endocrinology Dr Dockery and [place] [facility] [place] has imaging with adrenal thickening. Empty sella on MRI brain. Has had intermittent elevation in metanephrines. Symptoms and striae concerning for hypercortisolism but labs have not revealed such. She is to repeat labs in 3 months. She continues to have intermittent issues with headaches, vision changes, weakness, striae, skin ulceration, palpitations, anxiety, variable BP. -Family history of medullary thyroid cancer. 1st cousin. Family history (sister) MGUS, mast cell disorder ROS see HPI PHYSICAL EXAM: GENERAL: Alert and oriented x 3. NAD EYES: EOMI. Anicteric. HENT: Facial plethora. Moist mucous membranes. No scleral icterus. No cervical lymphadenopathy. LUNGS: scattered wheeze. No rhonci CARDIOVASCULAR: Regular rate and rhythm. No JVD. ABDOMEN: Soft, non-tender +bs EXTREMITIES: Minimal non pitting edema. Non-tender. SKIN: No rashes or lesions. Warm. NEUROLOGIC: No focal neurological deficits. CN II-XII grossly intact PSYCHIATRIC: Cooperative. Appropriate mood and affect [facility] Medical History Vitamin D deficiency Right shoulder pain Non-infective diarrhea Mixed anxiety and depressive disorder Mild persistent asthma Hyperlipidemia Headache Cyst of nasopharynx Cobalamin deficiency Cervical radiculopathy Cerebral arterial aneurysm Body mass index 40.0-44.9, adult ADHD Family History Other FH: mental illness Social History (Updated 03/05/24 @ 14:51 by Jacque Braxton CMA) Housing: House Alcohol intake: former Patient Tobacco Use Status: Former Tobacco user Cigarette Packs Per Day: 1 Years Smoked: 5 e-Cigarette/Vaping Use: Never Used service: No Current occupational status: employed 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 1. Little interest or pleasure in doing things: more than half the days 2. Feeling down, depressed, or hopeless: not at all 3. Trouble falling or staying asleep, or sleeping too much: more than half the days 4. Feeling tired or having little energy: more than half the days 5. Poor appetite or overeating: more than half the days 6. Feeling bad about yourself - or that you are a failure or have let yourself or your family down: several days 7. Trouble concentrating on things, such as reading the newspaper or watching television: not at all 8. Moving or speaking so slowly that other people could have noticed. Or the opposite - being so fidgety or restless that you have been moving around a lot more than usual: not at all 9. Thoughts that you would be better off or of hurting yourself in some way: not at all Total score: 9 Depression Screening Interpretation: Positive Depression Screening Follow-up: Existing condition Depression Screening Done: Yes 30640 - PHQ-9 Billing: Yes Source: Developed by Drs. Efren Gonzalez, Monet Delgadillo, Juna Goldsmith and colleagues, with an educational lonnie from [employer]. Thrive Questionnaire Date Thrive assessed: 08/25/23 I am a: Patient What is your living situation today?: I have a steady place to live Within the past 12 months, did the food you bought not last and you didn't have the money to get more?: Never true Within the past 12 months, did you worry whether your food would run out before you got money to buy more?: Never true Do you have trouble paying for medicines?: No Do you have trouble getting transportation to medical appointments?: No Do you have trouble paying your heating and electricity bill?: No Do you have trouble taking care of your child, family member or friend?: No Do you have trouble with day-to-day activities such as bathing, preparing meals, shopping, managing finances, etc.?: I choose not to answer this question Are you currently unemployed and looking for a job?: No Are you interested in more education?: No Please select the resources that you would like help with: None Currently or been in a relationship where the following occur: No concerns reported THRIVE Score: 0 AUDIT C Alcohol Use Questionnaire (AUDIT-C) 1. How often do you have a drink containing alcohol?: Never Total Score: 0 PILY-7 AMB Questionnaire PILY-7 Date PILY - 7 assessed: 03/05/24 Feeling nervous, anxious, or on edge: 1 = Several days Not being able to stop or control worryin = Several days Worrying too much about different things: 0 = Not at all Trouble relaxin = Not at all Being so restless that it is hard to sit still: 0 = Not at all Becoming easily annoyed or irritable: 0 = Not at all Feeling afraid as if something awful might happen: 1 = Several days Total PILY-7 score (0-4 normal; 5-9 mild; 10-14 moderate; 15-21 severe): 3 Source: Developed by Drs. Efren Gonzalez, Monet Delgadillo, Juan Goldsmith and colleagues, with an educational lonnie from [employer]. PILY-7 Assessment Billing PILY-7 Assessment Tool: PILY-7 Assessment 21303 Physical exam (Primary Care) Vital Signs: Last Vital Signs Pulse 72 03/05/24 14:51 Resp 16 03/05/24 14:51 BP 112/82 03/05/24 14:51 Pulse Ox 99 03/05/24 14:51 Oxygen Delivery Method Room Air 03/05/24 14:51 Tobacco/Smoking Status: Tobacco use Status Tobacco use date assessed 03/05/24 03/05/24 14:57 Patient Tobacco Use Status Former Tobacco user 03/05/24 14:51 e-Cigarette/Vaping Use Never Used 03/05/24 14:51 PHQ-9: PHQ-9 Score PHQ-9: Total score 9 03/05/24 14:58 Depression Screening Interpretation: Positive Depression Screening Follow-up: Existing condition Thrive Assessment: Date of Thrive Assessment Date Thrive assessed 08/25/23 03/05/24 14:44 Currently or been in a relationship where the following occur: No concerns reported Coding Level of Care Code Est Pt Level 5 (19466) Diagnoses Hospital discharge follow-up Z09 Multiple subsegmental pulmonary emboli without acute cor pulmonale I26.94 Pulmonary embolism type: multiple subsegmental (without acute cor pulmonale) Additional Codes PILY-7 Assessment Billing - PILY-7 Assessment Tool: PILY-7 Assessment 88139 ([id number]) PHQ-9 - 21088 - PHQ-9 Billing: Yes ([id number]) Time Spent (min) 47 Assessment & Plan Assessment & Plan (1) Hospital discharge follow-up: Code(s): Z09 - Encounter for follow-up examination after completed treatment for conditions other than malignant neoplasm Category: Medical Plan: Unprovoked PE, pnuemonia, asthma exacerbation, exertional dyspnea continue AC 5 days of levaquin sent Referral pending to cardiology, echo pending. Referral to hematology & pulmonary placed. FMLA completed (2) Pulmonary embolism: Code(s): I26.99 - Other pulmonary embolism without acute cor pulmonale Category: Medical Qualifiers: Pulmonary embolism type: multiple subsegmental (without acute cor pulmonale) Qualified Code(s): I26.94 - Multiple subsegmental thrombotic pulmonary emboli without acute cor pulmonale Plan: see HPI Orders: Referrals Pulmonology Referral I26.99 - Other pulmonary embolism without acute cor pulmonale, J45.909 - Unspecified asthma, uncomplicated Hematology & Oncology Referral I26.99 - Other pulmonary embolism without acute cor pulmonale Medications: New levofloxacin 750 mg PO DAILY 5 tabs 0RF
[2024-03-05 14:51] VITALS: BP 112/82; PULSE 72; RESP 16; O2SAT 99
--- OUTSIDE RECORDS SUMMARY | 2024-03-05 15:19 | XMS_ITS | Patient Health Record ---
Author Organization [facility] Address [address] [place] [address] Care Team Providers Care Membership Advisor Name Role Phone Lynne Jean Primary Care Provider Unavailabl e Allergies Allergen (clinical drug ingredient) Drug/Non Drug Allergy documented on EMR Reaction Allergy Type Onset Date Status Substance with sulfonamide structure and antibacterial mechanism of action (substance) Sulfa Antibiotics rash/dermatitis Drug Allergy Active tramadol Tramadol nausea, vomiting , headaches Drug Allergy Active venlafaxine Venlafaxine nausea and vomiting Drug Allergy Active Reason For Referral No Information Medications Medication SIG (Take, Route, Frequency, Duration) Notes Start Date End Date Status diazePAM 5 MG 1 tablet as needed O rally Once a day Active Flovent HFA Active Norethindrone 0.35 MG 1 tablet Orally On ce a day Active buPROPion HCl ER (XL) 300 MG 1 tablet in the morning Orally Once a day Active LORazepam 1 MG 0.5-1 tab Orally flora ry 12hrs as needed Active Mbpjblrwfk-TFLO-Mbpnnsov 50-325-40 MG 1 tablet as needed Orally every 6hrs Active Lisinopril 5 MG 1 tablet Orally Once a day Active Betamethasone Valerate 0.1 % 1 application Externally Once a day Active Augmentin Active Colestipol HCl 1 GM 1 tablet Orally two times daily Active Nystatin - as directed topicall y three times daily Active Fluticasone Propionate HFA 110 MCG/ACT 1 puff Inhalation Twice a day Active Ondansetron HCl 4 MG 1 tablet Orally Onc e a day Active Albuterol Sulfate HFA 108 (90 Base) MCG/ACT 2 puffs Inhalation every 4 hrs as needed Active Loratadine 10 MG 1 tablet Orally Once a day Active Ketotifen Fumarate 0.025 % 1 drop into a ffected eye Ophthalmic Twice a day Active Problems Problem Type SNOMED Code ICD Code Onset Dates Problem Status W/U Status Risk Notes Problem [id number] Equinus deformity of right foot (M21.6X1) Active confirmed Problem [id number] Equinus deformity of left foot (M21.6X2) Active confirmed Plan Of Treatment Pending Test Test Name Order Date Ultrasound : Doppler : Veins Leg Left X ray : Foot, left 3v 03/31/2020 X ray : Foot, left 3v 08/13/2020 X ray : Foot, right 3v 03/31/2020 INJ TENDON SHEATH/LIGAMENT/FASCIA 2020 INJ TENDON SHEATH/LIGAMENT/FASCIA 2020 WALKING BOOT PNEUMATIC AND/OR VAC 2020 Insurance Providers Payer Name Payer Address Payer Phone Subscriber Number Group Number Insured Name Patient Relationship to Insured Coverage Start Date Coverage End Date [employer] [address] [address] [place] [phone] [id number] Juan A Ferreira Self - patient is the insured Medications Administered Medication Instructions Date of Administration Dosage Notes Dexamethasone 03/31/2020 4 mg Dexamethasone 07/23/2020 4 mg Kenalog 03/31/2020 40 mg Kenalog 07/23/2020 40 mg Medical (General) History Medical History History ICD Code Morbid obesity with BMI of 40.0-44.9, ad ult Reactive airway disease without complica tion Headache, unspecified headache type Cerebral aneurysm, nonruptured Anxiety and depression Hypertension Uterine Polyp Vitamin D deficiency Deficiency of vitamin B12 DDD (degenerative disc disease) cervical Surgical History Surgery Date(Month/Year) Endometrial Polyp 2012 Historical 2009 Historical Neck Surgery-right C3-4 disce ctomy and fusion 2006 Laparoscopy, cholecystectomy 08/17/16 [place] Breast Reduction 2000 Remove tonsils adenoids, under 12 Total disc Arthrp Ant Apw/Discectomy CRV 2017
--- OUTSIDE RECORDS SUMMARY | 2024-03-05 15:20 | XMS_ITS | Encounter Summary ---
Author Organization [facility] Address [address] [place] [address] Care Team Providers Care Graduate Internship Name Role Phone Lynne Jean MD Primary Care Provider [phone] Reason for Visit * Reason Comments Shortness of Breath Discharged recently with pe's. Continues upper back pain and sob Encounter Details Date Type Department Care Team (Late st Contact Info) Description 02/29/2024 3:45 PM EST - 02/29/2024 11:46 PM EST Emergency [facility] Emergency [address] [place] [id number] Vickey Sharma MD [address] [place] [address] Angelina Green MD [address] [place] [address] Chest pain, unspecified type (Primary Dx) Discharge Disposition: Left Against Medical Advice Social History Tobacco Use Types Packs/Day Years Used Date Smoking Tobacco: Former Cigarettes 1 12 0 02/06/1994 - 01/20/2006 Smokeless Tobacco: Never Alcohol Use Standard Drinks/Week Comments Yes 0 (1 standard drink = 0.6 oz pur e alcohol) Interpersonal Safety Answer Date Record ed Physical Abuse 02/23/2024 Verbal Abuse 02/23/2024 Sex and Gender Information Value Date Recorded Sex Assigned at Female 02/22/2024 11:53 PM EST Gender Identity Female 02/22/2024 11:53 PM EST Sexual Orientation Straight 02/22/2024 11 :53 PM EST Job Start Date Occupation Industry Not on file Not on file Not on file documented as of this encounter Last Filed Vital Signs Vital Sign Reading Time Taken Comments Blood Pressure 133/71 02/29/2024 10:59 PM EST Pulse 79 02/29/2024 10:59 PM EST Temperature 36.7 ??C (98 ??F) 02/29/2024 10:59 PM EST Respiratory Rate 18 02/29/2024 10:59 PM EST Oxygen Saturation 97% 02/29/2024 10:59 PM EST Inhaled Oxygen Concentration - - Weight 121 kg (266 lb) 02/29/2024 11:11 AM EST Height 162.6 cm (5' 4 ) 02/29/2024 11:11 AM EST Body Mass Index 45.66 02/29/2024 11:11 AM EST documented in this encounter Functional Status Functional Status Response Date of Assess ment Are you deaf or do you have serious difficulty h earing? No 02/22/2024 Are you blind or do you have serious difficulty seeing, even when wearing glasses? No 02/22/2024 Do you have serious difficul ty walking or climbing stairs? No 02/22/2024 Do you have serious difficulty dressing or bathi ng? No 02/22/2024 Because of a physical, menta l, or emotional condition, do you have serious difficulty doing errands alone such as visiting the doctor? No 02/22/2024 Cognitive Status Response Date of Assessm ent Because of a physical, menta l, or emotional condition, do you have serious difficulty concentrating, remembering, or making decisions? (5 years old or older) No 02/22/2024 documented as of this encounter Discharge Instructions * Discharge Instructions* JACINTA Leslie - 02/29/2024 11:36 PM EST Results of your head CT and CAT scan are not yet back You are choosing to leave AGAINST MEDICAL ADVICE but are free to return to this emergency apartmentfor additional evaluation at any time Follow up with your primary provider. Call tomorrow for appointment. Return to Emergency Department if symptoms worsen, don't improve, or any other concern. Get well soon! Thank you for coming to the [facility] Emergency Department today. Our entire team works together to provide you with the best care possible. Examination and treatment you received in the emergency department has been rendered on an EMERGENCY basis only. It is not intended to be a substitute for or an effort to provide complete medical care. You should follow-up with your primary care provider. Please report to your physician any new or remaining problems, because it is impossible to recognize and treat all elements of injury or illness in a single emergency department visit. In the event that you're unable to obtain a followup appointment in a timely fashion, OR you are not getting any better, OR you are getting worse, OR you develop any symptoms of concern, please return here immediately for further evaluation. The emergency department is open 24 hours a day, 7 days aweek. Your discharge report is based on information that was available when you were in the emergency department. documented in this encounter Medications at Time of Discharge Medication Sig Dispensed Refills Start Date End Date albuterol 2.5 mg /3 mL (0.083 %) nebulizer solution Take 1 Vial by nebulization every 4 hours as needed for Wheezing for up to 180 days. 05/06/2019 albuterol HFA (PROAIR HFA ; PROVENTIL HFA ; VENTOLIN HFA) 90 mcg/actuation inhaler Inhale 2 Puffs into the lungs every 4 hours as needed for Cough, Wheezing or Shortness of Breath. 05/12/2021 amLODIPine (NORVASC) 5 mg tablet Take 1 Tablet by mouth daily for 180 days. 01/07/2022 aspirin 81 mg EC tablet Take 1 tablet (81 mg total) by mouth 1 (one) time each day. 01/25/2023 betamethasone valerate (VALISONE) 0.1 % ointment APPLY 1 G TO AFFECTED AREA DAILY NEEDED. 02/17/2020 clotrimazole-betameth asone (LOTRISONE) 1-0.05 % cream Apply topically as needed 08/06/2021 cyclobenzaprine (FLEXERIL) 10 mg tablet 11/01/2021 dextromethorphan-guai FENesin (ROBITUSSIN-DM) 10-100 mg/5 mL syrup Take 10 mL by mouth every 6 (six) hours for 10 days. 240 mL 02/24/2024 03/05/2024 diazePAM (VALIUM) 5 mg tablet Take 1 Tablet by mouth every 8 hours as needed (muscle spasm). 08/02/2021 FLUoxetine (PROzac) 40 mg capsule Take 1 capsule (40 mg total) by mouth 1 (one) time each day. folic acid (FOLVITE) 1 mg tablet Take 1 tablet (1 mg total) by mouth 1 (one) time each day. gabapentin (NEURONTIN) 300 mg capsule TAKE 1 -2 CAPSULES BY MOUTH 3 TIMES A DAY FOR 30 DAYS 11/03/2021 ipratropium-albuteroL (DUONEB) 0.5-2.5 mg/3 mL nebulizer solution Take 3 mL by nebulization 4 (four) times a day if needed for wheezing. loratadine (CLARITIN) 10 mg tablet Take 1 tablet (10 mg total) by mouth 1 (one) time each day. 05/25/2018 metoprolol succinate (TOPROL-XL) 25 mg 24 hr tablet Take 0.5 tablets (12.5 mg total) by mouth 1 (one) time each day. montelukast (SINGULAIR) 10 mg tablet Take 1 tablet (10 mg total) by mouth at bedtime. 08/06/2021 norethindrone (MAKEDA,MARIA VICTORIA,ALEYDA ,MICRONOR) 0.35 mg tablet Take 1 tablet (0.35 mg total) by mouth 1 (one) time each day. 09/06/2023 ondansetron (ZOFRAN) 4 mg tablet Take 1 tablet (4 mg total) by mouth every 8 (eight) hours if needed for nausea. 10/21/2020 oxyCODONE (ROXICODONE) 5 mg immediate release tablet Take 1 tablet (5 mg total) by mouth every 6 (six) hours if needed for moderate pain. 08/13/2021 reservoir inhalation (INSPIREASE) device Use as directed. 05/13/2016 rivaroxaban (XARELTO) starter pack Take 1 tablet (15 mg) by mouth 2 (two) times a day with meals for 21 days. Then take 1 tablet (20 mg) by mouth 1 (one) time each day with dinner. 51 tablet 02/24/2024 magnesium glycinate (Mag Glycinate) 100 mg tablet Take 100 mg by mouth 1 (one) time each day for 5 days. 5 tablet 02/24/2024 02/29/2024 documented as of this encounter Discharge Disposition Disposition Code Departure Means Destination Comment s Left Against Medical Advice documented in this encounter Progress Notes * Vickey Sharma MD - 02/29/2024 8:23 PM EST Juan A Ferreira Sign out given to JACINTA Blanco. * Mali Turner RN - 02/29/2024 11:12 AM EST PT returns to ED after discharge with increase weakness and fatigue. PT states she has lost nearly 20lbs since being put on lasix this weekend for bilateral lower ext edema and since starting xareltofor her bilateral pulmonary emboli. PT had high clotting factor numbers prior to PE diagnosis, PCP concerns she may be clotting somewhere else. PT denies bilateral lower ext pain. States right shoulder pain and left upper back/trap pain. PT reports increased SOB * Jennifer Pruitt RN - 02/29/2024 10:43 AM EST Discharged Monday. Continues with headache, back pain, sob, chest pain, dizziness and little energy documented in this encounter Plan of Treatment Pending Results Name Type Priority Associated Diagnoses Date /Time POC , urine manually resulted Point of Care Testing STAT 02/29/2024 5:29 PM EST Scheduled Orders Name Type Priority Associated Diagnoses Orde r Schedule POC , urine manually resulted Point of Care Testing STAT Once for 1 Occurrences starting 02/29/2024 until 02/29/2024 documented as of this encounter Procedures Procedure Name Priority Date/Time Associated Diagnosis Comments CT ANGIO CHEST WO AND/OR W CONTRAST STAT 02/29/2024 5:35 PM EST Chest pain, unspecified type CT HEAD WO CONTRAST STAT 02/29/2024 5 :34 PM EST XR CHEST 2 VIEWS STAT 02/29/2024 2:09 PM EST TROPONIN I HIGH SENSITIVITY STAT 02/29/2024 2:02 PM EST TROPONIN I HIGH SENSITIVITY STAT 02/29/2024 12:02 PM EST CBC WITH AUTO DIFFERENTIAL STAT 02/29/2024 12:02 PM EST PROTHROMBIN TIME WITH INR STAT 02/29/2024 12:02 PM EST CBC AND DIFFERENTIAL STAT 02/29/2024 12:02 PM EST HCG, SERUM, QUALITATIVE STAT Add-on 02/29/2024 12:02 PM EST B-TYPE NATRIURETIC PEPTIDE STAT 02/29/2024 12:02 PM EST BASIC METABOLIC PANEL STAT 02/29/2024 12:02 PM EST ECG 12-LEAD STAT 02/29/2024 10:49 AM EST ECG ANNOTATED 02/29/2024 documented in this encounter Results * CT Angio Chest wo and/or w Contrast (02/29/2024 5:35 PM EST) Anatomical Region Laterality Modality Body Computed Tomogra phy 03/01/2024 4:26 AM EST Addenda Addendum by Shaun Troncoso MD on 03/01/2024 4:32 AM EST ADDENDUM: Receipt of this report by the clinical staff was confirmed with ZACHARY Rivera on Mar 01, 2024 04:32:00 EST. This document has been electronically signed by: Angelina Olson on 03/01/2024 04:32:44 Impressions 03/01/2024 4:26 AM EST Impression: Tiny distal subsegmental PE suggested, slightly improved from prior. No large central pulmonary embolism. No heart strain by CT. This document has been electronically signed by: Shaun Troncoso MD on 03/01/2024 04:26:29 Narrative 03/01/2024 4:[address] angiography chest with contrast. 3D Postprocessing. Comparison: CT - CT ANGIO CHEST WO AND OR W CONTRAST - 02/23/24 04:24 EST Findings: Tiny distal nonocclusive subsegmental pulmonary emboli are again suggested. Slight interval improvement from prior. No large central or proximal segmental pulmonary embolism. No heart strain by CT. No mediastinal adenopathy or pericardial effusion. Possible tiny thyroid nodule. Lungs demonstrate no effusion or pneumothorax. Mild airway thickening at the lung bases. Very small hiatal hernia noted. The visualized upper abdomen demonstrates no acute process. Procedure Note Shaun Troncoso MD - 03/01/2024 CT angiography chest with contrast. 3D Postprocessing. Comparison: CT - CT ANGIO CHEST WO AND OR W CONTRAST - 02/23/24 04:24 EST Findings: Tiny distal nonocclusive subsegmental pulmonary emboli are again suggested. Slight interval improvement from prior. No large central or proximal segmental pulmonary embolism. No heart strain by CT. No mediastinal adenopathy or pericardial effusion. Possible tiny thyroid nodule. Lungs demonstrate no effusion or pneumothorax. Mild airway thickening at the lung bases. Very small hiatal hernia noted. The visualized upper abdomen demonstrates no acute process. IMPRESSION: Impression: Tiny distal subsegmental PE suggested, slightly improved from prior. No large central pulmonary embolism. No heart strain by CT. This document has been electronically signed by: Shaun Troncoso MD on 03/01/2024 04:26:29 Vickey Sharma MD Helga CT PROCEDURES * CT Head wo Contrast (02/29/2024 5:34 PM EST) Anatomical Region Laterality Modality Head and Neck Computed Tomogra phy 03/01/2024 4:21 AM EST Impressions 03/01/2024 4:21 AM EST 1. No acute intracranial findings. This document has been electronically signed by: Shaun Troncoso MD on 03/01/2024 04:21:43 Narrative 03/01/2024 4:[address] head without contrast Comparison: None Findings: No intra-axial mass, midline shift, hydrocephalus, or acute hemorrhage. No significant atrophy-like change or white matter disease. There is no sinus or mastoid fluid. The orbits are unremarkable. There is no acute fracture. Procedure Note Shaun Troncoso MD - 03/01/2024 CT head without contrast Comparison: None Findings: No intra-axial mass, midline shift, hydrocephalus, or acute hemorrhage. No significant atrophy-like change or white matter disease. There is no sinus or mastoid fluid. The orbits are unremarkable. There is no acute fracture. IMPRESSION: 1. No acute intracranial findings. This document has been electronically signed by: Shaun Troncoso MD on 03/01/2024 04:21:43 Vickey Sharma MD IMG CT PROCEDURES * XR Chest 2 Views (02/29/2024 2:09 PM EST) Anatomical Region Laterality Modality Body Radiographic Erin ging 02/29/2024 2:44 PM EST Impressions 02/29/2024 2:45 PM EST No evidence of active pulmonary disease. No significant change from the prior study. [id number] -------- FINAL REPORT -------- Dictated By: Chiki Sebastian Dictated Date: 02/29/2024 14:44 ET Assigned Physician: Chiki Sebastian Reviewed and Electronically Signed By: Chiki Sebastian Signed Date: 02/29/2024 14:45 ET Workstation ID: [id number] Transcribed By: Self Edit Transcribed Date: 02/29/2024 14:44 ET Narrative 02/29/2024 2:45 PM EST INDICATION: Shortness of breath for 4 weeks FINDINGS: Two views of the chest were obtained. Compared to multiple prior studies most recent from February 22, 2024. Lung gresham are clear. Cardiomediastinal silhouette is normal in size and shape. Bony structures are within normal limits for the patient's age. Procedure Note Chiki Sebastian MD - 02/29/2024 INDICATION: Shortness of breath for 4 weeks FINDINGS: Two views of the chest were obtained. Compared to multiple priorstudies most recent from February 22, 2024. Lung gresham are clear. Cardiomediastinal silhouette is normal in size and shape. Bony structures are within normal limits for the patient's age. IMPRESSION: No evidence of active pulmonary disease. No significant change from theprior study. [id number] -------- FINAL REPORT -------- Dictated By: Chiki Sebastian Dictated Date: 02/29/2024 14:44 ET Assigned Physician: Chiki Sebastian Reviewed and Electronically Signed By: Chiki Sebastian Signed Date: 02/29/2024 14:45 ET Workstation ID: [id number] Transcribed By: Self Edit Transcribed Date: 02/29/2024 14:44 ET Vickey Sharma MD IMG XR PROCEDURES * Troponin I high sensitivity (02/29/2024 2:02 PM EST) [facility] High Sensitivity Troponin I 11 <=54 ng/L LAB CHEMISTRY METHOD 02/29/2024 3:30 PM EST [facility] Blood Venous blood specimen / Unknown Venipuncture / Unknown 02/29/2024 2:02 PM EST 02/29/2024 2:58 PM EST Narrative [facility] - 02/29/2024 3:30 PM EST High levels of biotin in samples may falsely decrease hsTroponin values. ??Use caution when interpreting hsTroponin results in patients taking biotin who exhibit renal impairment (eGFR <60) or in patients taking more than 20 mg/day of biotin. Vickey Sharma MD LAB BLOOD ORDERABLES [facility] [address] [place] [address], * hCG, serum, qualitative (02/29/2024 12:02 PM EST) [facility] hCG Qual Negative Negative 02/29/2024 5:54 PM EST [facility] Blood Venous blood specimen / Unknown Venipuncture / Unknown 02/29/2024 12:02 PM EST 02/29/2024 1:18 PM EST Vickey Sharma MD LAB BLOOD ORDERABLES Performing Organization Address [facility] Co de Phone Number [facility] [address] [place] [address], [place] [phone] * Troponin I high sensitivity (02/29/2024 12:02 PM EST) [facility] High Sensitivity Troponin I 11 <=54 ng/L LAB CHEMISTRY METHOD 02/29/2024 1:46 PM EST [facility] Blood Venous blood specimen / Unknown Venipuncture / Unknown 02/29/2024 12:02 PM EST 02/29/2024 1:18 PM EST Narrative [facility] - 02/29/2024 1:46 PM EST High levels of biotin in samples may falsely decrease hsTroponin values. ??Use caution when interpreting hsTroponin results in patients taking biotin who exhibit renal impairment (eGFR <60) or in patients taking more than 20 mg/day of biotin. Vickey Sharma MD LAB BLOOD ORDERABLES Performing Organization Address [facility] Co de Phone Number [facility] [address] [place] [address], [place] [phone] * (ABNORMAL) Protime-INR (02/29/2024 12:02 PM EST) [facility] Protime 22.2(H) 10.6 - 13.9 sec LAB COAGULATION METHOD 02/29/2024 1:39 PM EST [facility] INR 1.8 LAB COAGULATION METHOD 02/29/2024 1:39 PM EST [facility] Blood Venous blood specimen / Unknown Venipuncture / Unknown 02/29/2024 12:02 PM EST 02/29/2024 1:18 PM EST Vickey Sharma MD LAB BLOOD ORDERABLES Performing Organization Address [facility]/ZIP Co de Phone Number [facility] [address] [place] [address], * B-type natriuretic peptide (02/29/2024 12:02 PM EST) [facility] BNP 3 <=100 pcg/mL LAB CHEMISTRY METHOD 02/29/2024 2:05 PM [facility] Blood Venous blood specimen / Unknown Venipuncture / Unknown 02/29/2024 12:02 PM EST 02/29/2024 1:18 PM EST Vickey Sharma MD LAB BLOOD ORDERABLES Performing Organization Address [facility]/ZIP Co de Phone Number [facility] [address] [place] [address], * (ABNORMAL) CBC auto differential (02/29/2024 12:02 PM EST) [facility] WBC 9.9 4.8 - 10.8 K/mcL LAB HEMETOLOGY METHOD 02/29/2024 1:38 PM [facility] RBC 5.40(H) 3.80 - 4.80 M/mcL LAB HEMETOLOGY METHOD 02/29/2024 1:38 PM [facility] Hemoglobin 15.6 11.5 - 16.0 g/dL LAB HEMETOLOGY METHOD 02/29/2024 1:38 PM [facility] Hematocrit 47.9(H) 35.0 - 47.0 % LAB HEMETOLOGY METHOD 02/29/2024 1:38 PM [facility] MCV 88.5 79.0 - 98.0 FL LAB HEMETOLOGY METHOD 02/29/2024 1:38 PM [facility] MCH 28.8 27.0 - 32.0 pcg LAB HEMETOLOGY METHOD 02/29/2024 1:38 PM [facility] MCHC 32.6 32.0 - 37.0 g/dL LAB HEMETOLOGY METHOD 02/29/2024 1:38 PM [facility] RDW 13.2 11.0 - 15.0 % LAB HEMETOLOGY METHOD 02/29/2024 1:38 PM [facility] Platelets 539(H) 130 - 400 K/mcL LAB HEMETOLOGY METHOD 02/29/2024 1:38 PM [facility] MPV 9.6 7.0 - 11.0 FL LAB HEMETOLOGY METHOD 02/29/2024 1:38 PM [facility] NRBC 0.0 <1.0 % LAB HEMETOLOGY METHOD 02/29/2024 1:38 PM [facility] NRBC Absolute 0.00 <0.10 K/mcL LAB HEMETOLOGY METHOD 02/29/2024 1:38 PM [facility] Neutrophils Relative 63.4 % LAB HEMETOLOGY METHOD 02/29/2024 1:38 PM [facility] Lymphocytes Relative 27.1 % LAB HEMETOLOGY METHOD 02/29/2024 1:38 PM [facility] Monocytes Relative 6.2 % LAB HEMETOLOGY METHOD 02/29/2024 1:38 PM [facility] Eosinophils Relative 2.2 % LAB HEMETOLOGY METHOD 02/29/2024 1:38 PM [facility] Basophils Relative 0.8 % LAB HEMETOLOGY METHOD 02/29/2024 1:38 PM [facility] Immature Granulocytes Relative 0.3 % LAB HEMETOLOGY METHOD 02/29/2024 1:38 PM [facility] Neutrophils Absolute 6.30 1.50 - 7.00 K/mcL LAB HEMETOLOGY METHOD 02/29/2024 1:38 PM [facility] Lymphocytes Absolute 2.69 1.00 - 5.00 K/mcL LAB HEMETOLOGY METHOD 02/29/2024 1:38 PM EST [facility] Monocytes Absolute 0.62 0.20 - 1.00 K/mcL LAB HEMETOLOGY METHOD 02/29/2024 1:38 PM EST [facility] Eosinophils Absolute 0.22 0.00 - 0.50 K/mcL LAB HEMETOLOGY METHOD 02/29/2024 1:38 PM EST [facility] Basophils Absolute 0.08 0.00 - 0.20 K/mcL LAB HEMETOLOGY METHOD 02/29/2024 1:38 PM [facility] Immature Granulocytes Absolute 0.03 0.00 - 0.03 K/mcL LAB HEMETOLOGY METHOD 02/29/2024 1:38 PM [facility] Blood Venous blood specimen / Unknown Venipuncture / Unknown 02/29/2024 12:02 PM EST 02/29/2024 1:18 PM EST Vickey Sharma MD LAB BLOOD ORDERABLES [facility] [address] [place] [address], * (ABNORMAL) Basic metabolic panel (02/29/2024 12:02 PM EST) Sodium 130(L) 133 - 145 mmol/L LAB CHEMISTRY METHOD 02/29/2024 1:46 PM EST [facility] Potassium 3.8 3.5 - 5.5 mmol/L LAB CHEMISTRY METHOD 02/29/2024 1:46 PM [facility] Chloride 94(L) 96 - 110 mmol/L LAB CHEMISTRY METHOD 02/29/2024 1:46 PM [facility] CO2 27 21 - 32 mmol/L LAB CHEMISTRY METHOD 02/29/2024 1:46 PM [facility] Anion Gap 9 3 - 11 LAB CHEMISTRY METHOD 02/29/2024 1:46 PM [facility] Glucose 153(H) 70 - 100 mg/dL LAB CHEMISTRY METHOD 02/29/2024 1:46 PM [facility] BUN 22 5 - 25 mg/dL LAB CHEMISTRY METHOD 02/29/2024 1:46 PM [facility] Creatinine 1.34(H) 0.50 - 1.10 mg/dL LAB CHEMISTRY METHOD 02/29/2024 1:46 PM [facility] eGFR 50(L) >=60 mL/min/1. 73m2 LAB CHEMISTRY METHOD 02/29/2024 1:46 PM [facility] Comment:Calculation based on the??Chronic Kidney Disease Epidemiology Collaboration (CKD-EPI) equation refit??without adjustment for race. BUN/Creatinine Ratio 16.4 LAB CHEMISTRY METHOD 02/29/2024 1:46 PM [facility] Calcium 10.0 8.5 - 10.5 mg/dL LAB CHEMISTRY METHOD 02/29/2024 1:46 PM [facility] Blood Venous blood specimen / Unknown Venipuncture / Unknown 02/29/2024 12:02 PM EST 02/29/2024 1:18 PM EST Vcikey B Zachary WARD LAB BLOOD ORDERABLES [facility] [address] [place] [address], * ECG 12 lead (02/29/2024 10:49 AM EST) Ventricular Rate ECG 104 BPM GEMUSE Atrial Rate 104 BPM GEMUSE P-R Interval 134 ms GEMUSE QRS Duration 90 ms GEMUSE Q-T Interval 364 ms GEMUSE QTc 478 ms GEMUSE P Wave Sharon 38 degrees GEMUSE R Sharon -16 degrees GEMUSE T Sharon 21 degrees GEMUSE ECG Interpretation Sinus tachycardia Possible Left atrial enlargement Borderline ECG When compared with ECG of 22-FEB-2024 21:55, No significant change was found Confirmed by Gilles AIKEN JOHN ([id number]) on 02/29/2024 4:45:25 PM GEMUSE 02/29/2024 10:4 9 AM EST 02/29/2024 4:45 PM EST Jem Damon MD ECG ORDERABLES GEMUSE * ECG-Annotated (02/29/2024) Provider Onbase ECG ORDERABLES documented in this encounter Visit Diagnoses Diagnosis Chest pain, unspecified type- Primary documented in this encounter Administered Medications Inactive Administered Medications - up to 3 most recent administrations Medication Order MAR Action Action Date Dose Rate Site iopamidoL (ISOVUE-370) 370 mg iodine /mL (76 %) injection 100 mL 100 mL, intravenous, Once in imaging, Starting on Joana 02/29/24 at 1727, For 1 dose Given 02/29/2024 5:27 PM EST 90 mL sodium chloride 0.9 % bolus 1,000 mL 1,000 mL, intravenous, at 2,000 mL/hr, Administer over 30 Minutes, Once, On Joana 02/29/24 at 1705, For 1 dose New Bag 02/29/2024 5:38 PM EST 1,000 mL 2000 mL/hr sodium chloride 0.9 % flush 10 mL 10 mL, intravenous, Once, On Joana 02/29/24 at 1728, For 1 dose Given 02/29/2024 5:27 PM EST 10 mL documented in this encounter Active and Recently Administered Medications Times are shown in EST. Scheduled Medication Order 02/27/2024 02/28/2024 02/29/2024 iopamidoL (ISOVUE-370) 370 mg iodine /mL (76 %) injection 100 mL (COMPLETED) 100 mL, intravenous, Once in imaging, Starting on Joana 02/29/24 at 1727, For 1 dose 1727 (Given - Provid er: Taina Peterson) sodium chloride 0.9 % bolus 1,000 mL (COMPLETED) 1,000 mL, intravenous, at 2,000 mL/hr, Administer over 30 Minutes, Once, On Joana 02/29/24 at 1705, For 1 dose 1738 (New Bag - Prov ider: Ruby Martiens, PONCHO)2008 (Stopped - Provider: Alta Cleveland RN) sodium chloride 0.9 % flush 10 mL (COMPLETED) 10 mL, intravenous, Once, On Joana 02/29/24 at 1728, For 1 dose 1727 (Given - Provid er: Taina Peterson) documented in this encounter Care Teams Graduate Internship Relationship Specialty Start Date End Date Lynne Jean MD PCP - General Endocrinology 02/29/24 documented as of this encounter
--- OUTSIDE RECORDS SUMMARY | 2024-03-05 15:20 | XMS_ITS | Clinical Summary ---
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 09/06/2023 Active aspirin 81 mg EC tablet Take 1 tablet (81 mg total) by mouth 1 (one) time each day. 01/25/2023 Active metoprolol succinate (TOPROL-XL) 25 mg 24 hr tablet Take 0.5 tablets (12.5 mg total) by mouth 1 (one) time each day. Active amLODIPine (NORVASC) 5 mg tablet Take 1 Tablet by mouth daily for 180 days. 01/07/2022 Active gabapentin (NEURONTIN) 300 mg capsule TAKE 1 -2 CAPSULES BY MOUTH 3 TIMES A DAY FOR 30 DAYS 11/03/2021 Active cyclobenzaprine (FLEXERIL) 10 mg tablet 11/01/2021 Active oxyCODONE (ROXICODONE) 5 mg immediate release tablet Take 1 tablet (5 mg total) by mouth every 6 (six) hours if needed for moderate pain. 08/13/2021 Active clotrimazole-bet amethasone (LOTRISONE) 1-0.05 % cream Apply topically as needed 08/06/2021 Active montelukast (SINGULAIR) 10 mg tablet Take 1 tablet (10 mg total) by mouth at bedtime. 08/06/2021 Active diazePAM (VALIUM) 5 mg tablet Take 1 Tablet by mouth every 8 hours as needed (muscle spasm). 08/02/2021 Active albuterol HFA (PROAIR HFA ; PROVENTIL HFA ; VENTOLIN HFA) 90 mcg/actuation inhaler Inhale 2 Puffs into the lungs every 4 hours as needed for Cough, Wheezing or Shortness of Breath. 05/12/2021 Active ondansetron (ZOFRAN) 4 mg tablet Take 1 tablet (4 mg total) by mouth every 8 (eight) hours if needed for nausea. 10/21/2020 Active betamethasone valerate (VALISONE) 0.1 % ointment APPLY 1 G TO AFFECTED AREA DAILY NEEDED. 02/17/2020 Active albuterol 2.5 mg /3 mL (0.083 %) nebulizer solution Take 1 Vial by nebulization every 4 hours as needed for Wheezing for up to 180 days. 05/06/2019 Active loratadine (CLARITIN) 10 mg tablet Take 1 tablet (10 mg total) by mouth 1 (one) time each day. 05/25/2018 Active reservoir inhalation (INSPIREASE) device Use as directed. 05/13/2016 Active folic acid (FOLVITE) 1 mg tablet Take 1 tablet (1 mg total) by mouth 1 (one) time each day. Active ipratropium-albu teroL (DUONEB) 0.5-2.5 mg/3 mL nebulizer solution Take 3 mL by nebulization 4 (four) times a day if needed for wheezing. Active FLUoxetine (PROzac) 40 mg capsule Take 1 capsule (40 mg total) by mouth 1 (one) time each day. Active rivaroxaban (XARELTO) starter pack Take 1 tablet (15 mg) by mouth 2 (two) times a day with meals for 21 days. Then take 1 tablet (20 mg) by mouth 1 (one) time each day with dinner. 51 tablet 02/24/2024 Active dextromethorphan -guaiFENesin (ROBITUSSIN-DM) 10-100 mg/5 mL syrup Take 10 mL by mouth every 6 (six) hours for 10 days. 240 mL 02/24/2024 5 Active SPIRONOLACTONE ORAL Take by mouth 2 times daily. 5 Discontinued colestipoL (COLESTID) 1 gram tablet Take 1 tablet (1 g total) by mouth 1 (one) time each day. 06/15/2022 5 Discontinued losartan-hydroCH LOROthiazide (HYZAAR) 100-25 mg per tablet Take 1 tablet by mouth 1 (one) time each day. 5 Discontinued cholecalciferol (VITAMIN D-3) 125 mcg (5,000 unit) capsule Take 1 capsule (5,000 Units total) by mouth 1 (one) time each day. 5 Discontinued buPROPion SR (WELLBUTRIN SR) 200 mg 12 hr tablet Take 1 tablet (200 mg total) by mouth 2 (two) times a day. 05/21/2021 5 Discontinued fluticasone HFA (FLOVENT HFA) 110 mcg/actuation inhaler Inhale 1 Puff into the lungs 2 times daily. 05/12/2021 5 Discontinued atorvastatin (LIPITOR) 20 mg tablet Take 1 tablet (20 mg total) by mouth 1 (one) time each day. 02/26/2021 5 Discontinued fluticasone propionate (FLONASE) 50 mcg/actuation nasal spray Use 2 spray per nostril daily. 05/22/2020 5 Discontinued ketotifen fumarate (ZADITOR) 0.035 % ophthalmic solution Place 1 Drop into both eyes 2 times daily for 10 days. 06/06/2017 5 Discontinued dextromethorphan -guaiFENesin (ROBITUSSIN-DM) 10-100 mg/5 mL syrup Take 10 mL by mouth every 6 (six) hours for 10 days. 240 mL 02/24/2024 5 Discontinued rivaroxaban (XARELTO) starter pack Take 1 tablet (15 mg) by mouth 2 (two) times a day with meals for 21 days. Then take 1 tablet (20 mg) by mouth 1 (one) time each day with dinner. 51 tablet 02/24/2024 5 Discontinued magnesium glycinate (Mag Glycinate) 100 mg tablet Take 100 mg by mouth 1 (one) time each day for 5 days. 5 tablet 02/24/2024 5 Active Problems Problem Noted Date Diagnosed Date Pulmonary embolism 02/23/2024 Anxiety and depression 12/26/2023 DDD (degenerative disc disease), cervical 2023 Deficiency of vitamin B12 12/26/2023 Hypertension 12/26/2023 Uterine polyp 12/26/2023 Vitamin D deficiency 12/26/2023 Morbid obesity with BMI of 40.0-44.9, adult 12/07 Abnormal EKG 01/07/2022 Elevated blood pressure reading 01/07/2022 Cervical radiculopathy 11/09/2021 Overview (12/26/2023): Last Assessment & Plan: Ms. Ferreira describes about 8 days of neck pain with pain and paresthesias in the right upper extremity. She is status post C3-4 anterior cervical discectomy and fusion with Dr. Will in January 2006 and C4-5 anterior cervical discectomy with arthroplasty performed by Dr. Will in September 2017. She did well following both of those procedures with occasional minor flareups. She says she is never had any pain like she does now. She describes neck pain with radiation to the right trapezius, biceps, radial forearm, and first 2 digits of the right hand. She tried some steroids without relief. We talked about NSAIDs but given her use of losartan I explained that they needed to be used very judiciously if at all. She is on gabapentin at the dose that she could tolerate. We will get some x-rays of the cervical spine and presuming those look okay, she will begin physical therapy. She is not interested in surgery at this time and I believe that conservative treatment would serve her best at this point. She will follow-up with us after the therapy. Irregular menses 08/28/2021 Overview (12/26/2023): Last Assessment & Plan: Based on patient's history, symptoms may be related to [place]'s for which she is undergoing a work-up at this time. I have ordered labs for evaluation of PCOS as requested. Skin lesion 08/26/2021 Overview (12/26/2023): Last Assessment & Plan: Discussed using Bacitracin OTC. She was instructed to call if she develops redness surrounding the lesion, increasing pain or fevers/chills. Vulvar irritation 08/26/2021 Overview (12/26/2023): Last Assessment & Plan: Vaginal culture collected, will treat as indicated. Vulvovaginal hygiene reviewed. Encouraged patient to stop using Dove soap and use only warm water. 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 Asthma, mild persistent 04/21/2018 Cerebral aneurysm, nonruptured 02/15/2017 Overview (12/26/2023): LOUIE Headache, unspecified headache type 02/15/2017 Encounters Date Type Department Care Team Description 02/29/2024 3:45 PM EST - 02/29/2024 11:46 PM [facility] Emergency [address] [place] [address] Vickey Sharma MD King, Marie A, MD Chest pain, unspecified type (Primary Dx) Discharge Disposition: Left Against Medical Advice 02/22/2024 10:50 PM EST - 02/24/2024 3:25 PM [facility] Intermediate Care Unit [address] [place] [address] Pamela Sommer MD Jones, Christopher, MD Flores, Carlos M, MD Santoyo-Pacheco, Omar D, MD Acute hypoxic respiratory failure (CMS/HCC) (Primary Dx); Multiple subsegmental pulmonary emboli without acute cor pulmonale (CMS/HCC); Dyspnea on exertion; Pneumonia of left lower lobe due to infectious organism; Localized swelling of both lower extremities Discharge Disposition: Home or Self Care from Last 3 Months Immunizations Name Administration Dates Next Due Influenza Quadravalent, MDCK , 0.5ml, with preservative (Flucelvax) 6mo and older 11/01/2016 Influenza trivalent, 0.5mL, preservative free (Fluarix; FluLaval; Fluzone) ages 6mo and older (Afluria) 3 years and older 11/23/2018 [employer] SARS-CoV-2 COVID-19, mRNA, LNP-S, preservative free 03/29/2021,02/18/2020,01/26/2020 Tb Skin Test 05/24/2017 Td Tetanus diptheria (Tdvax) 7yo and older 07/16 Tdap Tetanus diptheria acell ular pertussis (Boostrix; Adacel) 7yo and older 10/22/2019,08/23/2011 Surgical History Surgery Date Site/Laterality Comments NECK SURGERY 2006 Right PROCEDURE: HISTORICAL NECK SURGERY; COMMENT: C3-4 discectomy and fusion, Dr. Will OTHER SURGICAL HISTORY 2012 PROCEDURE: ENDOMETRAIL POLYP SPCMN PATHOLOGY EXAM SECTION 2008 PROCEDURE: HISTORICAL TONSILLECTOMY ADENOIDECTOMY, BILATERAL MYRINGOTOMY AND TUBES PROCEDURE: AR TONSILLECTOMY & ADENOIDECTOMY <AGE 12 BREAST REDUCTION 2000 PROCEDURE: AR BREAST REDUCTION CHOLECYSTECTOMY 08/17/2016 PROCEDURE: AR LAPAROSCOPY SURG CHOLECYSTECTOMY; COMMENT: Laparoscopic cholecystectomy; [place]; Dr. Matos OTHER SURGICAL HISTORY PROCEDURE: TOTAL DISC ARTHRP ANT APW/DISCECTOMY CRV 3+; COMMENT: 2017 OTHER SURGICAL HISTORY PROCEDURE: AR ANESTHESIA CERVICAL SPINE & CORD NOS Medical History Medical History Date Comments Anxiety and depression DX:Anxiet y and depression Hypertension DX:Hypertension Deficiency of vitamin B12 DX:Def iciency of vitamin B12 Vitamin D deficiency DX:Vitamin D deficiency Uterine polyp DX:Uterine polyp DDD (degenerative disc disea se), cervical DX:DDD (degenerative disc di sease), cervical Acute neck pain DX:Acute neck pa in Right cervical radiculopathy DX: Right cervical radiculopathy Family History Medical History Relation Name Comments Other: borderline personality d.o. Daughter 1 Giovanni Other: vascular problems Father Cataracts Mother Colon polyps Mother pre cancerous Hypertension Mother Other: hysterectomy Mother Other: spinal Mother Breast cancer Neg Hx Cancer of Small Bowel Neg Hx Colon cancer Neg Hx Kidney cancer Neg Hx Ovarian cancer Neg Hx Pancreatic cancer Neg Hx Prostate cancer Neg Hx Uterine cancer Neg Hx Relation Name Status Comments Daughter 1 Giovanni Alive ADHD, anxiety Daughter 2 [place] Alive MRSA Father (Age 63) PVD, CAD, HTN Maternal Grandmother lung ca ncer, smoker Mother Alive hypertension, C AD, anxiety, PTSD Sister 1 Alive Type 2 diabetes Sister 2 Alive MS, anxiety and depression Social History Tobacco Use Types Packs/Day Years [...] file Not on file Not on file Obstetrics History Last Filed Vital Signs Vital Sign Reading [...] Mass Index 45.66 02/29/2024 11:11 AM EST Plan of Treatment Health Maintenance Due Date Last Done Comments Breast Cancer Screening 1977 Pneumococcal Vaccine: Pediatrics (0 to 5 Years) and At-Risk Patients (6 to 64 Years) (1 of 2 - PCV) 04/30/1983 Hepatitis B Vaccines (1 of 3 - 19+ 3-dose series) 1996 Colorectal Cancer Screening: Colonoscopy 03/08/2019 Depression Screening 03/08/2019 HIV Screening 03/08/2019 Hepatitis C Screening 03/08/2019 Social Influencers of Health Screening 03/08/2019 COVID-19 Vaccine ( season) 2023 09/10/2022, 03/29/2021, 02/18/2020, Additional history exists Influenza Vaccine (#1) 2023 , 11/23/2018, 11/01/2016 Hypertension/CHF/CAD Annual BMP Blood Test 02/28/2025 02/29/2024, 02/24/2024, 02/22/2024, Additional history exists Cholesterol Screening (Lipid Panel) 09/29/2025 09/29/2020 Cervical Cancer Screening: HPV 08/26/2026 08/26/2021 DTaP,Tdap,and Td Vaccines (4 - Td or Tdap) 10/21/2029 10/22/2019, 07/16/2018, 08/23/2011 HIB Vaccines Aged Out No longer eligi ble based on patient's age to complete this topic HPV Vaccines Aged Out No longer eligi ble based on patient's age to complete this topic Hepatitis A Vaccines Aged Out No long er eligible based on patient's age to complete this topic IPV Vaccines Aged Out No longer eligi ble based on patient's age to complete this topic MMR Vaccines Aged Out No longer eligi ble based on patient's age to complete this topic Meningococcal ACWY Vaccine Aged Out N o longer eligible based on patient's age to complete this topic RSV Immunization Patients Under 20 months Aged Out No longer eligible based on patient's age to complete this topic Varicella Vaccines Aged Out No longer eligible based on patient's age to complete this topic Procedures Procedure Name Priority Date/Time Associated Diagnosis Comments CT ANGIO CHEST WO AND/OR W CONTRAST STAT 02/29/2024 5:35 PM EST Chest pain, unspecified type CT HEAD WO CONTRAST STAT 02/29/2024 5 :34 PM EST XR CHEST 2 VIEWS STAT 02/29/2024 2:09 PM EST TROPONIN I HIGH SENSITIVITY STAT 02/29/2024 2:02 PM EST HCG, SERUM, QUALITATIVE STAT Add-on 02/29/2024 12:02 PM EST TROPONIN I HIGH SENSITIVITY STAT 02/29/2024 12:02 PM EST PROTHROMBIN TIME WITH INR STAT 02/29/2024 12:02 PM EST B-TYPE NATRIURETIC PEPTIDE STAT 02/29/2024 12:02 PM EST CBC WITH AUTO DIFFERENTIAL STAT 02/29/2024 12:02 PM EST BASIC METABOLIC PANEL STAT 02/29/2024 12:02 PM EST CBC AND DIFFERENTIAL STAT 02/29/2024 12:02 PM EST ECG 12-LEAD STAT 02/29/2024 10:49 AM EST ECG ANNOTATED 02/29/2024 CBC WITH AUTO DIFFERENTIAL Routine 02/24/2024 5:54 AM EST CBC AND DIFFERENTIAL Routine 02/24/2024 5:54 AM EST BASIC METABOLIC PANEL Routine 02/24/2024 5:54 AM EST VAS US DUPLEX LOWER EXT VENOUS BILAT Routine 02/23/2024 12:32 PM EST Localized swelling of both lower extremities C-REACTIVE PROTEIN STAT 02/23/2024 9: 23 AM EST LAVENDER - EDTA Routine 02/23/2024 9:21 AM EST EXTRA TUBES Routine 02/23/2024 9:21 AM EST ACTIVATED PARTIAL THROMBOPLASTIN TIME STAT 02/23/2024 7:[address] ANGIO CHEST WO AND/OR W CONTRAST STAT 02/23/2024 4:25 AM EST Acute hypoxic respiratory failure (CMS/HCC) B-TYPE NATRIURETIC PEPTIDE STAT 02/23/2024 2:29 AM EST RESPIRATORY VIRUS PANEL MOLECULAR STUDY STAT 02/23/2024 12:36 AM EST PROTHROMBIN TIME WITH INR STAT Add-on 02/23/2024 12:26 AM EST D-DIMER STAT 02/23/2024 12:26 AM EST TROPONIN I HIGH SENSITIVITY STAT 02/22/2024 10:00 PM EST ECG 12-LEAD STAT 02/22/2024 9:55 PM EST XR CHEST 2 VIEWS STAT 02/22/2024 9:34 PM EST C-REACTIVE PROTEIN Add-On 02/22/2024 8: 55 PM EST PROCALCITONIN Add-On 02/22/2024 8:55 PM EST CBC WITH AUTO DIFFERENTIAL STAT 02/22/2024 8:55 PM EST MAGNESIUM STAT 02/22/2024 8:55 PM EST LIPASE STAT 02/22/2024 8:55 PM EST COMPREHENSIVE METABOLIC PANEL STAT 02/22/2024 8:55 PM EST CBC AND DIFFERENTIAL STAT 02/22/2024 8:55 PM EST TROPONIN I HIGH SENSITIVITY STAT 02/22/2024 8:55 PM EST ECG 12-LEAD STAT 02/22/2024 7:26 PM EST ECG ANNOTATED 02/22/2024 HM HPV Routine 08/26/2021 LIPID PANEL Routine 09/29/2020 from Last 3 Months or Most Recently Relevant to Health Maintenance Results * CT Angio Chest wo and/or w Contrast (02/29/2024 5:35 PM EST) Only the most recent of2 resultswithin the time period is included. Anatomical Region Laterality Modality Body Computed Tomogra phy 03/01/2024 4:26 AM EST Addenda Addendum by Shaun Troncoso MD on 03/01/2024 4:32 AM EST ADDENDUM: Receipt of this report by the clinical staff was confirmed with CARLOS Rivera on Mar 01, 2024 04:32:00 EST. [...] MD on 03/01/2024 04:26:29 Vickey Sharma MD IMG CT PROCEDURES * CT Head wo Contrast [...] Chest 2 Views (02/29/2024 2:09 PM EST) Only the most recent of2 resultswithin the time period is included. Anatomical Region Laterality Modality Body Radiographic Erin ging 02/29/2024 2:44 PM EST Impressions 02/29/2024 2:45 PM EST No evidence of active pulmonary disease. No significant change from the prior study. [id number] -------- FINAL REPORT -------- Dictated By: Chiki Sebastian Dictated Date: 02/29/2024 14:44 ET Assigned Physician: Chiki Sebastian Reviewed and Electronically Signed By: Chiki Sebastian Signed Date: 02/29/2024 14:45 ET Workstation ID: [id number] Transcribed By: Self Edit Transcribed Date: 02/29/2024 [...] disease. No significant change from theprior study. [id number] -------- FINAL REPORT -------- Dictated By: Chiki Sebastian Dictated Date: 02/29/2024 14:44 ET Assigned Physician: Chiki Sebastian Reviewed and Electronically Signed By: Chiki Sebastian Signed Date: 02/29/2024 14:45 ET Workstation ID: [id number] Transcribed By: Self Edit Transcribed Date: 02/29/2024 14:44 ET Vickey Sharma MD IMG XR PROCEDURES * Troponin I high sensitivity (02/29/2024 2:02 PM EST) Only the most recent of4 resultswithin the time period is included. High Sensitivity Troponin I 11 <=54 ng/L LAB CHEMISTRY METHOD 02/29/2024 3:30 PM EST [facility] Blood Venous blood specimen / Unknown Venipuncture / Unknown 02/29/2024 2:02 PM EST 02/29/2024 2:58 PM EST [facility] - 02/29/2024 3:30 PM EST High levels of biotin in samples may falsely decrease hsTroponin values. ??Use caution when interpreting hsTroponin results in patients taking biotin who exhibit renal impairment (eGFR <60) or in patients taking more than 20 mg/day of biotin. Vickey Sharma MD LAB BLOOD ORDERABLES [facility] [address] [place] [address], * (ABNORMAL) CBC auto differential (02/29/2024 12:02 PM EST) Only the most recent of3 resultswithin the time period is included. WBC 9.9 4.8 - 10.8 K/mcL LAB HEMETOLOGY METHOD 02/29/2024 1:38 PM [facility] RBC 5.40(H) 3.80 - 4.80 M/mcL LAB HEMETOLOGY METHOD 02/29/2024 1:38 PM [facility] Hemoglobin 15.6 11.5 - 16.0 g/dL LAB HEMETOLOGY METHOD 02/29/2024 1:38 PM [facility] Hematocrit 47.9(H) 35.0 - 47.0 % LAB HEMETOLOGY METHOD 02/29/2024 1:38 PM [facility] MCV 88.5 79.0 - 98.0 FL LAB HEMETOLOGY METHOD 02/29/2024 1:38 PM [facility] MCH 28.8 27.0 - 32.0 pcg LAB HEMETOLOGY METHOD 02/29/2024 1:38 PM [facility] MCHC 32.6 32.0 - 37.0 g/dL LAB HEMETOLOGY METHOD 02/29/2024 1:38 PM [facility] RDW 13.2 11.0 - 15.0 % LAB HEMETOLOGY METHOD 02/29/2024 1:38 PM [facility] Platelets 539(H) 130 - 400 K/mcL LAB HEMETOLOGY METHOD 02/29/2024 1:38 PM [facility] MPV 9.6 7.0 - 11.0 FL LAB HEMETOLOGY METHOD 02/29/2024 1:38 PM [facility] NRBC 0.0 <1.0 % LAB HEMETOLOGY METHOD 02/29/2024 1:38 PM [facility] NRBC Absolute 0.00 <0.10 K/mcL LAB HEMETOLOGY METHOD 02/29/2024 1:38 PM [facility] Neutrophils Relative 63.4 % LAB HEMETOLOGY METHOD 02/29/2024 1:38 PM [facility] Lymphocytes Relative 27.1 % LAB HEMETOLOGY METHOD 02/29/2024 1:38 PM [facility] Monocytes Relative 6.2 % LAB HEMETOLOGY METHOD 02/29/2024 1:38 PM [facility] Eosinophils Relative 2.2 % LAB HEMETOLOGY METHOD 02/29/2024 1:38 PM [facility] Basophils Relative 0.8 % LAB HEMETOLOGY METHOD 02/29/2024 1:38 PM [facility] Immature Granulocytes Relative 0.3 % LAB HEMETOLOGY METHOD 02/29/2024 1:38 PM [facility] Neutrophils Absolute 6.30 1.50 - 7.00 K/mcL LAB HEMETOLOGY METHOD 02/29/2024 1:38 PM [facility] Lymphocytes Absolute 2.69 1.00 - 5.00 K/mcL LAB HEMETOLOGY METHOD 02/29/2024 1:38 PM [facility] Monocytes Absolute 0.62 0.20 - 1.00 K/mcL LAB HEMETOLOGY METHOD 02/29/2024 1:38 PM EST [facility] Eosinophils Absolute 0.22 0.00 - 0.50 K/[facility] LAB HEMETOLOGY METHOD 02/29/2024 1:38 PM EST [facility] Basophils Absolute 0.08 0.00 - 0.20 K/mcL LAB HEMETOLOGY METHOD 02/29/2024 1:38 PM EST [facility] Immature Granulocytes Absolute 0.03 0.00 - 0.03 K/[facility] LAB HEMETOLOGY METHOD 02/29/2024 1:38 PM EST [facility] Blood Venous blood specimen / Unknown Venipuncture / Unknown 02/29/2024 12:02 PM EST 02/29/2024 1:18 PM EST Vickey Sharma MD LAB BLOOD ORDERABLES Performing Organization Address City/[facility]/ZIP Co de Phone Number [facility] [address] [place] [address], [place] [phone] * (ABNORMAL) Protime-INR (02/29/2024 12:02 PM EST) Only the most recent of2 resultswithin the time period is included. Protime 22.2(H) 10.6 - 13.9 sec LAB COAGULATION METHOD 02/29/2024 1:39 PM EST [facility] INR 1.8 LAB COAGULATION METHOD 02/29/2024 1:39 PM EST [facility] Blood Venous blood specimen / Unknown Venipuncture / Unknown 02/29/2024 12:02 PM EST 02/29/2024 1:18 PM EST Vickey Sharma MD LAB BLOOD ORDERABLES Performing Organization Address City/[facility]/ZIP Co de Phone Number [facility] [address] [place] [address], [place] [phone] * hCG, serum, qualitative (02/29/2024 12:02 PM EST) [facility] hCG Qual Negative Negative 02/29/2024 5:54 PM EST [facility] Blood Venous blood specimen / Unknown Venipuncture / Unknown 02/29/2024 12:02 PM EST 02/29/2024 1:18 PM EST Vickey Sharma MD LAB BLOOD ORDERABLES Performing Organization Address City/[facility]/ZIP Co de Phone Number [facility] [address] [place] [address], [place] [phone] * B-type natriuretic peptide (02/29/2024 12:02 PM EST) Only the most recent of2 resultswithin the time period is included. [facility] BNP 3 <=100 pcg/mL LAB CHEMISTRY METHOD 02/29/2024 2:05 PM EST [facility] Blood Venous blood specimen / Unknown Venipuncture / Unknown 02/29/2024 12:02 PM EST 02/29/2024 1:18 PM EST Vickey Sharma MD LAB BLOOD ORDERABLES Performing Organization Address City/[facility]/ZIP Co de Phone Number [facility] [address] [place] [address], [place] [phone] * (ABNORMAL) Basic metabolic panel (02/29/2024 12:02 PM EST) Only the most recent of2 resultswithin the time period is included. [facility] Sodium 130(L) 133 - 145 mmol/L LAB CHEMISTRY METHOD 02/29/2024 1:46 PM EST [facility] Potassium 3.8 3.5 - 5.5 mmol/L LAB CHEMISTRY METHOD 02/29/2024 1:46 PM EST [facility] Chloride 94(L) 96 - 110 mmol/L LAB CHEMISTRY METHOD 02/29/2024 1:46 PM EST [facility] CO2 27 21 - 32 mmol/L LAB CHEMISTRY METHOD 02/29/2024 1:46 PM [facility] Anion Gap 9 3 - 11 LAB CHEMISTRY METHOD 02/29/2024 1:46 PM [facility] Glucose 153(H) 70 - 100 mg/dL LAB CHEMISTRY METHOD 02/29/2024 1:46 PM [facility] BUN 22 5 - 25 mg/dL LAB CHEMISTRY METHOD 02/29/2024 1:46 PM [facility] Creatinine 1.34(H) 0.50 - 1.10 mg/dL LAB CHEMISTRY METHOD 02/29/2024 1:46 PM [facility] eGFR 50(L) >=60 mL/min/1. 73m2 LAB CHEMISTRY METHOD 02/29/2024 1:46 PM [facility] Comment:Calculation based on the??Chronic Kidney Disease Epidemiology Collaboration (CKD-EPI) equation refit??without adjustment for race. BUN/Creatinine Ratio 16.4 LAB CHEMISTRY METHOD 02/29/2024 1:46 PM [facility] Calcium 10.0 8.5 - 10.5 mg/dL LAB CHEMISTRY METHOD 02/29/2024 1:46 PM [facility] Blood Venous blood specimen / Unknown Venipuncture / Unknown 02/29/2024 12:02 PM EST 02/29/2024 1:18 PM EST Vickey Sharma MD LAB BLOOD ORDERABLES [facility] [address] [place] [address], * ECG 12 lead (02/29/2024 10:49 AM EST) Only the most recent of3 resultswithin the time period is included. Ventricular Rate ECG 104 BPM GEMUSE Atrial Rate 104 BPM GEMUSE P-R Interval 134 ms GEMUSE QRS Duration 90 ms GEMUSE Q-T Interval 364 ms GEMUSE QTc 478 ms GEMUSE P Wave Logan 38 degrees GEMUSE R Logan -16 degrees GEMUSE T Logan 21 degrees GEMUSE ECG Interpretation Sinus tachycardia Possible Left atrial enlargement Borderline ECG When compared with ECG of 22-FEB-2024 21:55, No significant change was found Confirmed by Gilles AIKEN JOHN ([id number]) on 02/29/2024 4:45:25 PM GEMUSE 02/29/2024 10:4 9 AM EST 02/29/2024 4:45 PM EST Jem Damon MD ECG ORDERABLES GEMUSE * ECG-Annotated (02/29/2024) Only the most recent of2 resultswithin the time period is included. Provider Onbase ECG ORDERABLES * Vascular US duplex lower extremity venous bilateral (02/23/2024 12:32 PM EST) Anatomical Region Laterality Modality Vascular, Abdomen Ultrasound 02/23/2024 12:3 0 PM EST Impressions 02/23/2024 12:37 PM EST NO RIGHT OR LEFT LOWER EXTREMITY DEEP VENOUS THROMBOSIS. -------- FINAL REPORT -------- Dictated By: DEJUAN DUNN Dictated Date: 02/23/2024 12:30 ET Assigned Physician: DEJUAN DUNN Reviewed and Electronically Signed By: DEJUAN DUNN Signed Date: 02/23/2024 12:37 ET Workstation ID: [id number] Transcribed By: Self Edit Transcribed Date: 02/23/2024 12:30 ET Narrative 02/23/2024 12:37 PM EST PROCEDURE: VAS US DUPLEX LOWER EXT VENOUS BILAT INDICATION: Leg swelling, pain TECHNIQUE: 2-D and color Doppler imaging of the lower extremity venous vasculature with compression and augmentation maneuvers. COMPARISON: No priors available. FINDINGS: RIGHT: There is normal flow, compression, and augmentation from the common femoral through the popliteus. LEFT: There is normal flow, compression, and augmentation from the common femoral through the popliteus. Visualized calf veins are patent Procedure Note Dejuan Dunn MD - 02/23/2024 PROCEDURE: VAS US DUPLEX LOWER EXT VENOUS BILAT INDICATION: Leg swelling, pain TECHNIQUE: 2-D and color Doppler imaging of the lower extremity venousvasculature with compression and augmentation maneuvers. COMPARISON: No priors available. FINDINGS: RIGHT: There is normal flow, compression, and augmentation from the commonfemoral through the popliteus. LEFT: There is normal flow, compression, and augmentation from the commonfemoral through the popliteus. Visualized calf veins are patent IMPRESSION: NO RIGHT OR LEFT LOWER EXTREMITY DEEP VENOUS THROMBOSIS. -------- FINAL REPORT -------- Dictated By: DEJUAN DUNN Dictated Date: 02/23/2024 12:30 ET Assigned Physician: DEJUAN DUNN Reviewed and Electronically Signed By: DEJUAN DUNN Signed Date: 02/23/2024 12:37 ET Workstation ID: [id number] Transcribed By: Self Edit Transcribed Date: 02/23/2024 12:30 ET Venancio Kaye MD CV VASCULAR PROCEDU RES * (ABNORMAL) C-reactive protein (02/23/2024 9:23 AM EST) Only the most recent of2 resultswithin the time period is included. [facility] C-Reactive Protein 1.38(H) <=0.50 mg/dL LAB CHEMISTRY METHOD 02/23/2024 10:12 AM EST [facility] Blood Venous blood specimen / Unknown Venipuncture / Unknown 02/23/2024 9:23 AM EST 02/23/2024 9:27 AM EST Senia Ulloa NP LAB BLOOD ORDERABLES [facility] [address] [place] [address], * Lavender tube (02/23/2024 9:21 AM EST) [facility] Extra Tube Hold for add-ons. 02/23/2024 11:02 AM EST [facility] Comment:Auto resulted. Blood Venous blood specimen / Unknown Venipuncture / Unknown 02/23/2024 9:21 AM EST 02/23/2024 9:27 AM EST Pamela Sommer MD LAB BLOOD ORDERA BLES Performing Organization Address [facility]/ZIP Co de Phone Number [facility] [address] [place] [address], [place] [phone] * (ABNORMAL) Activated Partial Thromboplastin Time - STAT (02/23/2024 7:31 AM EST) [facility] aPTT 42.3(H) 24.1 - 39.3 sec LAB COAGULATION METHOD 02/23/2024 8:21 AM EST [facility] Blood Venous blood specimen / Unknown Venipuncture / Unknown 02/23/2024 7:31 AM EST 02/23/2024 7:52 AM EST Venancio Kaye MD LAB BLOOD ORDERABLE S Performing Organization Address [facility]/ZIP Co de Phone Number [facility] [address] [place] [address], [place] [phone] * Respiratory virus panel molecular study (02/23/2024 12:36 AM EST) [facility] Adenovirus Detection by PCR Not Detected Not Detected LAB MICROBIOLOGY METHOD 02/23/2024 1:45 AM EST [facility] Influenza A PCR Not Detected Not Detected LAB MICROBIOLOGY METHOD 02/23/2024 1:45 AM EST [facility] Influenza B PCR Not Detected Not Detected LAB MICROBIOLOGY METHOD 02/23/2024 1:45 AM EST [facility] Coronavirus 229E Not Detected Not Detected LAB MICROBIOLOGY METHOD 02/23/2024 1:45 AM EST [facility] Coronavirus HKU1 Not Detected Not Detected LAB MICROBIOLOGY METHOD 02/23/2024 1:45 AM EST [facility] Coronavirus OC43 Not Detected Not Detected LAB MICROBIOLOGY METHOD 02/23/2024 1:45 AM EST [facility] Coronavirus NL63 Not Detected Not Detected LAB MICROBIOLOGY METHOD 02/23/2024 1:45 AM [facility] Parainfluenza Virus 1 Not Detected Not Detected LAB MICROBIOLOGY METHOD 02/23/2024 1:45 AM EST [facility] Parainfluenza Virus 2 Not Detected Not Detected LAB MICROBIOLOGY METHOD 02/23/2024 1:45 AM [facility] Parainfluenza Virus 3 Not Detected Not Detected LAB MICROBIOLOGY METHOD 02/23/2024 1:45 AM [facility] Parainfluenza Virus 4 Not Detected Not Detected LAB MICROBIOLOGY METHOD 02/23/2024 1:45 AM [facility] RSV PCR Not Detected Not Detected LAB MICROBIOLOGY METHOD 02/23/2024 1:45 AM [facility] Human Metapneumovirus A and B Not Detected Not Detected LAB MICROBIOLOGY METHOD 02/23/2024 1:45 AM [facility] Rhinovirus/Entero virus Not Detected Not Detected LAB MICROBIOLOGY METHOD 02/23/2024 1:45 AM [facility] Bordetella pertussis Not Detected Not Detected LAB MICROBIOLOGY METHOD 02/23/2024 1:45 AM [facility] Bordetella parapertussis Not Detected Not Detected LAB MICROBIOLOGY METHOD 02/23/2024 1:45 AM [facility] Mycoplasma pneumo by PCR Not Detected Not Detected LAB MICROBIOLOGY METHOD 02/23/2024 1:45 AM [facility] Chlamydia pneumoniae Not Detected Not Detected LAB MICROBIOLOGY METHOD 02/23/2024 1:45 AM [facility] SARS COV-2 Not Detected Not Detected LAB MICROBIOLOGY METHOD 02/23/2024 1:45 AM EST [facility] Swab Nasopharyngeal structure / Unknown Non-blood Collection / Unknown 02/23/2024 12:36 AM EST 02/23/2024 12:49 AM EST [facility] - 02/23/2024 1:45 AM EST Testing was performed using the [employer] Respiratory Pathogen PCR Assay. All results must be correlated with the clinical findings. Results should not be used as the sole basis for diagnosis. False Negative results may occur from the presence of sequence variants in the region targeted by the assay or the presence of inhibitors. Results may be affected by concurrent antiviral/antimicrobial therapy or levels of organisms that are below the limit of detection. Anahi Brantley DO LAB MICROBIOLOGY - GENERAL ORDERABLES Performing Organization Address [facility]/ZIP Co de Phone Number [facility] [address] [place] [address], * (ABNORMAL) D-dimer, quantitative (02/23/2024 12:26 AM EST) D-Dimer, Quant (D-DU) 309(H) <=230 ng/mL DDU LAB COAGULATION METHOD 02/23/2024 1:29 AM EST [facility] Blood Venous blood specimen / Unknown Venipuncture / Unknown 02/23/2024 12:26 AM EST 02/23/2024 12:49 AM EST Samira [facility] - 02/23/2024 1:29 AM EST D-Dimer <230 ng/mL (D-Dimer units) is the threshold for exclusion of DVT/PE. D-Dimer may be elevated in: Critically ill, severely infected, trauma patients, DIC, acute CVA, acute NC, unstable angina, AF, old age, , and smoking. D-Dimer may be decreased with: Initiation of heparin therapy and oral anticoagulants. Pamela Sommer MD LAB BLOOD ORDERA BLES Performing Organization Address [facility]/ZIP Co de Phone Number [facility] [address] [place] [address], * Procalcitonin (02/22/2024 8:55 PM EST) Procalcitonin 0.03 <=0.16 ng/mL LAB CHEMISTRY METHOD 02/23/2024 10:13 AM EST [facility] Blood Venous blood specimen / Unknown Venipuncture / Unknown 02/22/2024 8:55 PM EST 02/22/2024 9:03 PM EST [facility] - 02/23/2024 10:13 AM EST Procalcitonin > 2.00 ng/ml: Procalcitonin Levels above 2.00 ng/ml, on the first day of ICU admission represent a high risk for progression to severe sepsis and/or septic shock. Procalcitonin < 0.50 ng/ml: Procalcitonin levels below 0.50 ng/ml on the first day of ICU admission represent a low risk for progression to severe sepsis and/or septic shock. Concentrations <0.5 ng/mL do not exclude an infection, on account of local ized infections (without systemic signs) which can be associated with such low concentrations, or a systemic infection in its initial stages (<6 hours). Furthermore, increased procalcitonin can occur without infection. PCT concentrations between 0.5 and 2.0 ng/mL should be interpreted taking into account the patient's history. It is recommended to retest PCT within 6-24 hours if any concentrations <2.0 ng/mL are obtained. Venancio Kaye MD LAB BLOOD ORDERABLE S [facility] [address] [place] [address], * (ABNORMAL) Magnesium (02/22/2024 8:55 PM EST) Magnesium 1.8(L) 1.9 - 2.6 mg/dL LAB CHEMISTRY METHOD 02/22/2024 9:30 PM EST [facility] Blood Venous blood specimen / Unknown Venipuncture / Unknown 02/22/2024 8:55 PM EST 02/22/2024 9:03 PM EST Anahi Brantley LAB BLOOD ORDERAB LES [facility] [address] [place] [address], [place] [phone] * Lipase (02/22/2024 8:55 PM EST) [facility] Lipase 34 13 - 75 unit/L LAB CHEMISTRY METHOD 02/22/2024 9:30 PM EST [facility] Blood Venous blood specimen / Unknown Venipuncture / Unknown 02/22/2024 8:55 PM EST 02/22/2024 9:03 PM EST Anahi Brantley LAB BLOOD ORDERAB LES Performing Organization Address City/[facility]/ZIP Co de Phone Number [facility] [address] [place] [address], [place] [phone] * (ABNORMAL) Comprehensive metabolic panel (02/22/2024 8:55 PM EST) [facility] Sodium 136 133 - 145 mmol/L LAB CHEMISTRY METHOD 02/22/2024 9:30 PM [facility] Potassium 3.8 3.5 - 5.5 mmol/L LAB CHEMISTRY METHOD 02/22/2024 9:30 PM [facility] Chloride 103 96 - 110 mmol/L LAB CHEMISTRY METHOD 02/22/2024 9:30 PM [facility] CO2 29 21 - 32 mmol/L LAB CHEMISTRY METHOD 02/22/2024 9:30 PM [facility] Anion Gap 4 3 - 11 LAB CHEMISTRY METHOD 02/22/2024 9:30 PM [facility] Glucose 139(H) 70 - 100 mg/dL LAB CHEMISTRY METHOD 02/22/2024 9:30 PM [facility] BUN 10 5 - 25 mg/dL LAB CHEMISTRY METHOD 02/22/2024 9:30 PM [facility] Creatinine 1.10 0.50 - 1.10 mg/dL LAB CHEMISTRY METHOD 02/22/2024 9:30 PM [facility] eGFR 63 >=60 mL/min/1. 73m2 LAB CHEMISTRY METHOD 02/22/2024 9:30 PM [facility] Comment:Calculation based on the??Chronic Kidney Disease Epidemiology Collaboration (CKD-EPI) equation refit??without adjustment for race. BUN/Creatinine Ratio 9.1 LAB CHEMISTRY METHOD 02/22/2024 9:30 PM [facility] Calcium 8.7 8.5 - 10.5 mg/dL LAB CHEMISTRY METHOD 02/22/2024 9:30 PM [facility] AST (SGOT) 23 10 - 42 unit/L LAB CHEMISTRY METHOD 02/22/2024 9:30 PM [facility] ALT (SGPT) 44 10 - 60 unit/L LAB CHEMISTRY METHOD 02/22/2024 9:30 PM [facility] Alkaline Phosphatase 95 42 - 121 unit/L LAB CHEMISTRY METHOD 02/22/2024 9:30 PM [facility] Total Protein 7.3 6.0 - 8.0 g/dL LAB CHEMISTRY METHOD 02/22/2024 9:30 PM [facility] Albumin 3.3 3.2 - 5.0 g/dL LAB CHEMISTRY METHOD 02/22/2024 9:30 PM [facility] Total Bilirubin 0.3 0.0 - 1.4 mg/dL LAB CHEMISTRY METHOD 02/22/2024 9:30 PM [facility] Blood Venous blood specimen / Unknown Venipuncture / Unknown 02/22/2024 8:55 PM EST 02/22/2024 9:03 PM EST Anahi Mcdonald Fercho DO LAB BLOOD ORDERAB LES [facility] [address] [place] [address], * Cervical Cancer Screening: HPV (08/26/2021) Cervical Cancer Screening: HPV abstracted, negative Historical Provider MD MANUEL LOPEZ E * (ABNORMAL) Lipid panel (09/29/2020) LDL/HDL Ratio 3 0 - 4 Triglycerides 225(A) 0 - 150 mg/dL Cholesterol 154 0 - 200 mg/dL HDL 54 40 mg/dL LDL Cholesterol 55 0 - 100 mg/dL Blood Venous blood specimen / Unknown Historical Provider LAB BLOOD ORDERAB LES from Last 3 Months or Most Recently Relevant to Health Maintenance Advance Directives * Full Code - Default (Latest Code Status on File) Date Activated Date Inactivated Comments 02/23/2024 6:34 AM 02/24/2024 5:35 PM This is orde r is used when code status has not been discussed with the patient, or code status is otherwise unknown/unconfirmed To update the patient's code status, place a code status order. Do not modify or discontinue any currently active code status orders. Care Teams Driver Salesman Relationship Specialty Start Date End Date Lynne Jean MD PCP - General Endocrinology 02/29/24
--- OUTSIDE RECORDS SUMMARY | 2024-03-05 15:20 | XMS_ITS | Encounter Summary ---
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 * Auth/Cert (Routine) Specialty Diagnoses / Procedures Referred By Ender t Referred To Contact Diagnoses Pulmonary embolism (CMS/HCC) Procedures IN HOSPITAL IP/OBS CARE ADMIT/DISCHARGE SAME DATE MODERATE LEVEL Venancio Kaye MD [address] [place] [address] [facility] Emergency [address] [place] [phone] Referral ID Status Reason Start Date Expiration Date Visits Re quested Visits Authorized [id number] 1 1 Encounter Details Date Type Department Care Team (Late st Contact Info) Description 02/22/2024 10:50 PM EST - 02/24/2024 3:25 PM EST Emergency [facility] [address] [place] [address] Pamela Sommer MD [address] [place] [address] Venancio Kaye MD [address] [place] [id number] Abdon Hodge MD [address] [place] [address] [place] [phone] Mart Moore MD [address] [place] [address] Acute hypoxic respiratory failure (CMS/HCC) (Primary Dx); Multiple subsegmental pulmonary emboli without acute cor pulmonale (CMS/HCC); Dyspnea on exertion; Pneumonia of left lower lobe due to infectious organism; Localized swelling of both lower extremities Discharge Disposition: Home or Self Care Social History Tobacco Use Types Packs/Day Years [...] Sign Reading Time Taken Comments Blood Pressure 132/80 02/24/2024 11:32 AM EST Pulse 81 02/24/2024 11:32 AM EST Temperature 36.3 ??C (97.3 ??F) 02/24/2024 11:[address] Respiratory Rate 24 02/24/2024 11:32 AM EST Oxygen Saturation 95% 02/24/2024 11:32 AM EST Inhaled Oxygen Concentration - - Weight 127 kg (279 lb) 02/23/2024 5:28 AM EST Height 162.6 cm (5' 4 ) 02/22/2024 7:54 PM EST Body Mass Index 47.89 02/22/2024 7:54 PM EST documented in this encounter Functional Status [...] 02/22/2024 documented as of this encounter Discharge Summaries * JACINTA Hammond - 02/24/2024 2:29 PM EST [place] DISCHARGE SUMMARY Patient Information Juan A Ferreira : 1975 [48 y.o.] Admitting Provider Venancio Kaye MD Discharge Provider JACINTA Hammond, No att. providers found Primary Care Physician Lynne Jean MD Admission Date 02/22/2024 Discharge Date 02/24/2024 Discharge Destination: Home Code Status at Discharge: Full Code - Default Hospital Course Summary Shortness of breath Asthma attack? Bilateral pulmonary embolism Hypoventilatory syndrome 48-year-old female with past medical history of hypertension, morbid obesity, presented to the ED for persisting shortness of breath. Symptoms started weeks ago for which she was prescribed antibiotic, steroids without relief. Patient also was evaluated by her PCP due to increased lower extremity swelling for which she is on Lasix. She reported dry cough. Denied any fever, night sweats, chills, estrogen use, smoking. On presentation, EKG was negative for ST change or acute infection. During her observation, vital signs remained stable including O2 sat 95% on room air. CBC was negative for leukocytosis. Troponin level and BNP were normal. Lipase level was normal. Respiratory viral panel was negative. CT chest angio showed bilateral segmental and subsegmental PE without right heart strain. Bilateral DVT ultrasound was negative. Patient was managed with anticoagulation, steroid, bronchodilators. Her respiratory status also was improving. She was able to ambulate without difficulty. Patient discharged and wasrecommended to follow-up with PCP. Volume overload Patient reported being treated by PCP for volume overload. She has been on Lasix 40 mg daily. On exam, she had mild lower extremity edema, wheezing. Her BNP was normal. Patient to continue with Lasix. Fluid restriction recommended. Follow-up with PCP. Left lower lobe consolidation. Procalcitonin was normal. Patient was recently treated with antibiotics. 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 In past, pheochromocytoma was suspected, however hold ruled out. Follow-up with PCP. Hypomagnesemia Magnesium on admission was low 1.8. Magnesium sent to patient's pharmacy. Anxiety and depression On fluoxetine. Class III obesity BMI 47.89. Follow-up with PCP. Procedures done: Vascular US duplex lower extremity venous bilateral Final Result NO RIGHT OR LEFT LOWER EXTREMITY DEEP VENOUS THROMBOSIS. -------- FINAL REPORT -------- Dictated By: DEJUAN DUNN Dictated Date: 02/23/2024 12:30 ET Assigned Physician: DEJUAN DUNN Reviewed and Electronically Signed By: DEJUAN DUNN Signed Date: 02/23/2024 12:37 ET Workstation ID: [id number] Transcribed By: Self Edit Transcribed Date: 02/23/2024 12:[address] Angio Chest wo and/or w Contrast Final Result Addendum (preliminary) 1 ADDENDUM: This report was discussed with HAROLDO ALMARAZ on Feb 23, 2024 04:47:00 EST. This document has been electronically signed by: Katalina Purvis on 02/23/2024 04:47:59 Final 1. Tiny bilateral segmental and subsegmental pulmonary emboli. No right heart strain. 2. Left lower lobe atelectasis with dense consolidation. Developing pneumonia not excluded. This document has been electronically signed by: You Ibanez MD on 02/23/2024 04:44:23 XR Chest 2 Views Final Result No acute findings. -------- FINAL REPORT -------- Dictated By: You Tse Dictated Date: 02/23/2024 09:32 ET Assigned Physician: You Tse Reviewed and Electronically Signed By: You Tse Signed Date: 02/23/2024 09:32 ET Workstation ID: [id number] Transcribed By: Self Edit Transcribed Date: 02/23/2024 09:32 ET Condition upon discharge Visit Vitals BP 132/80 (BP Location: Left arm, Patient Position: Lying) Pulse 81 Temp 36.3 ??C (97.3 ??F) (Temporal) Resp 24 Temp (24hrs), Av.2 ??C (97.1 ??F), Min:36.1 ??C (97 ??F), Max:36.3 ??C (97.3 ??F) Body mass index is 47.89 kg/m??. No results found for: PTWT , PTHT GEN: Alert, oriented. No distress. Obese. HEENT: Atraumatic, symmetric, PERRLA. Neck: Supple, nontender, no range of motion limitation. Lungs: Clear, no accessory muscle use. Heart: Regular, no murmur. Mild lower extremity edema. Abdomen: Not distended, soft, nontender. Bowel sounds present. Neuro: Alert, oriented. Cranial nerves II to XII grossly intact. No facial droop. No motor deficit,no sensory deficit. Psych: Cooperative, calm. This note was written using Graze speech recognition software which is prone to typographical errors. If questions occur please do not hesitate to call this provider. Follow-Up Instructions and Recommendations No follow-up provider specified. No discharge procedures on file. There are no outpatient Patient Instructions on file for this admission. Discharge Medications Your medication list START taking these medications Instructions Last Dose Given Next Dose Due dextromethorphan-guaiFENesin 10-100 mg/5 mL syrup Commonly known as: ROBITUSSIN-DM Take 10 mL by mouth every 6 (six) hours for 10 days. rivaroxaban starter pack Commonly known as: XARELTO Take 1 tablet (15 mg) by mouth 2 (two) times a day with meals for 21 days. Then take 1 tablet (20 mg) by mouth 1 (one) time each day with dinner. CONTINUE taking these medications Instructions Last Dose Given Next Dose Due albuterol 2.5 mg /3 mL (0.083 %) nebulizer solution Take 1 Vial by nebulization every 4 hours as needed for Wheezing for up to 180 days. albuterol HFA 90 mcg/actuation inhaler Commonly known as: PROAIR HFA ; PROVENTIL HFA ; VENTOLIN HFA Inhale 2 Puffs into the lungs every 4 hours as needed for Cough, Wheezing or Shortness of Breath. amLODIPine 5 mg tablet Commonly known as: NORVASC Take 1 Tablet by mouth daily for 180 days. aspirin 81 mg EC tablet Take 1 tablet (81 mg total) by mouth 1 (one) time each day. betamethasone valerate 0.1 % ointment Commonly known as: VALISONE APPLY 1 G TO AFFECTED AREA DAILY NEEDED. clotrimazole-betamethasone 1-0.05 % cream Commonly known as: LOTRISONE Apply topically as needed cyclobenzaprine 10 mg tablet Commonly known as: FLEXERIL diazePAM 5 mg tablet Commonly known as: VALIUM Take 1 Tablet by mouth every 8 hours as needed (muscle spasm). FLUoxetine 40 mg capsule Commonly known as: PROzac Take 1 capsule (40 mg total) by mouth 1 (one) time each day. folic acid 1 mg tablet Commonly known as: FOLVITE Take 1 tablet (1 mg total) by mouth 1 (one) time each day. gabapentin 300 mg capsule Commonly known as: NEURONTIN TAKE 1 -2 CAPSULES BY MOUTH 3 TIMES A DAY FOR 30 DAYS ipratropium-albuteroL 0.5-2.5 mg/3 mL nebulizer solution Commonly known as: DUONEB Take 3 mL by nebulization 4 (four) times a day if needed for wheezing. loratadine 10 mg tablet Commonly known as: CLARITIN Take 1 tablet (10 mg total) by mouth 1 (one) time each day. metoprolol succinate 25 mg 24 hr tablet Commonly known as: TOPROL-XL Take 0.5 tablets (12.5 mg total) by mouth 1 (one) time each day. montelukast 10 mg tablet Commonly known as: SINGULAIR Take 1 tablet (10 mg total) by mouth at bedtime. norethindrone 0.35 mg tablet Commonly known as: MAKEDA,MARIA VICTORIA,ALEYDA,MICRONOR Take 1 tablet (0.35 mg total) by mouth 1 (one) time each day. ondansetron 4 mg tablet Commonly known as: ZOFRAN Take 1 tablet (4 mg total) by mouth every 8 (eight) hours if needed for nausea. oxyCODONE 5 mg immediate release tablet Commonly known as: ROXICODONE Take 1 tablet (5 mg total) by mouth every 6 (six) hours if needed for moderate pain. reservoir inhalation device Commonly known as: INSPIREASE Use as directed. Where to Get Your Medications These medications were sent to [facility]/pharmacy #[id number] - [place], [place] - [address] [facility] [address] [facility] [address] Hours: 24-hours dextromethorphan-guaiFENesin 10-100 mg/5 mL syrup rivaroxaban starter pack Magnesium script sent to her pharmacy Case discussed with Dr Phillips. Time spent: 60 minutes. Associated attestation - Mart Moore MD - 02/24/2024 7:07 PM EST This is a split/shared visit with JACINTA Hammond. I personally performed the medical decision making (MDM) for the care of this patient on 02/24/24 as documented below I have personally seen and examined the patient with the resident/PA/FURNITURE POLISHER and king elements of all parts of the encounter were performed by me. Patient was reassessed on more than one occasion when required. I reviewed the interval history, interpreted all available radiographic, laboratory and physiological data at the time of service. I agree with the assessment and plan as documented by the resident/PA/FURNITURE POLISHER with additions. Patient remained helically stable, no signs of respiratory failure, feeling better, main complaint was pleuritic pain, x-ray changes likely represent recent pneumonia need follow-up to document clearance. Agree with oral therapy for PE. Appears to be unprovoked, workup can be as an outpatient. Reviewed the medication list with the patient appears that she is taking spironolactone prescribed by her cheese supervisor, not documented in med reconciliation and not documented and dispenses medications, she was suited to continue this medication after discharge. Alvaro Phillips MD 02/24/24 7:05 PM EST documented in this encounter Discharge Instructions * Discharge Instructions* JACINTA Hammond - 02/24/2024 2:29 PM EST Follow up with PCP Continue with lasix, nebulizer Low salt diet Fluid restriction * Attachments The following attachments cannot be sent through Care Everywhere. * Pulmonary Embolism (French) * SOB (Shortness of Breath) (French) * Asthma: Adult (French) documented in this encounter Medications at Time [...] Cough, Wheezing or Shortness of Breath. 05/12/2021 aspirin 81 mg EC tablet Take 1 tablet (81 mg total) by mouth 1 (one) time each day. 01/25/2023 dextromethorphan-guai FENesin (ROBITUSSIN-DM) 10-100 mg/5 mL syrup [...] by mouth 1 (one) time each day. ipratropium-albuteroL (DUONEB) 0.5-2.5 mg/3 mL nebulizer solution Take 3 mL by nebulization 4 (four) times a day if needed for wheezing. metoprolol succinate (TOPROL-XL) 25 mg 24 hr tablet Take 0.5 tablets (12.5 mg total) by mouth 1 (one) time each day. norethindrone (MAKEDA,MARIA VICTORIA,ALEYDA ,MICRONOR) 0.35 mg tablet [...] hours if needed for moderate pain. 08/13/2021 rivaroxaban (XARELTO) starter pack Take 1 tablet (15 mg) by mouth 2 (two) times a day with meals for 21 days. Then take 1 tablet (20 mg) by mouth 1 (one) time each day with dinner. 51 tablet 02/24/2024 amLODIPine (NORVASC) 5 mg tablet Take 1 Tablet by mouth daily for 180 days. 01/07/2022 betamethasone valerate (VALISONE) 0.1 % ointment APPLY 1 G TO AFFECTED AREA DAILY NEEDED. 02/17/2020 clotrimazole-betameth asone (LOTRISONE) 1-0.05 % cream Apply topically as needed 08/06/2021 cyclobenzaprine (FLEXERIL) 10 mg tablet 11/01/2021 gabapentin (NEURONTIN) 300 mg capsule TAKE 1 -2 CAPSULES BY MOUTH 3 TIMES A DAY FOR 30 DAYS 11/03/2021 loratadine (CLARITIN) 10 mg tablet Take 1 tablet (10 mg total) by mouth 1 (one) time each day. 05/25/2018 montelukast (SINGULAIR) 10 mg tablet Take 1 tablet (10 mg total) by mouth at bedtime. 08/06/2021 reservoir inhalation (INSPIREASE) device Use as directed. 05/13/2016 magnesium glycinate (Mag Glycinate) 100 mg tablet Take 100 mg by mouth 1 (one) time each day for 5 days. 5 tablet 02/24/2024 02/29/2024 documented as of this encounter Ordered Prescriptions Prescription Sig Dispensed Refills Start Date End Da te dextromethorphan-guaiFENe sin (ROBITUSSIN-DM) 10-100 mg/5 mL syrup Take 10 mL by mouth every 6 (six) hours for 10 days. 240 mL 02/24/2024 03/05/2024 rivaroxaban (XARELTO) starter pack Take 1 tablet (15 mg) by mouth 2 (two) times a day with meals for 21 days. Then take 1 tablet (20 mg) by mouth 1 (one) time each day with dinner. 51 tablet 02/24/2024 magnesium glycinate (Mag Glycinate) 100 mg tablet Take 100 mg by mouth 1 (one) time each day for 5 days. 5 tablet 02/24/2024 02/29/2024 rivaroxaban (XARELTO) starter pack Take 1 tablet (15 mg) by mouth 2 (two) times a day with meals for 21 days. Then take 1 tablet (20 mg) by mouth 1 (one) time each day with dinner. 51 tablet 02/24/2024 02/24/2024 dextromethorphan-guaiFENe sin (ROBITUSSIN-DM) 10-100 mg/5 mL syrup Take 10 mL by mouth every 6 (six) hours for 10 days. 240 mL 02/24/2024 02/24/2024 documented in this encounter Discharge Disposition Disposition Code Departure Means Destination Comment s Home or Self Care Wheelchair Home documented in this encounter Progress Notes * Lynne Rutledge RN - 02/24/2024 2:18 PM EST 02/24/24 1418 Transportation Transportation at discharge Family Final Discharge Disposition Home or Self Care Patient discharged home no services * Debby Still RN - 02/23/2024 2:09 PM EST ED RN HANDOFF (All Howell Below Must Be Completed) Reason/Diagnosis for Admission: Type of Admission: [] Medsurg, [x] Telemetry Already in a Hospital Bed: [x] Yes / [] No Room Considerations/Precautions (ex: fever, diarrhea, or any infectious concerns): [] Yes / [x] No Trade Recruiter: [x] Yes / [] No If YES, Cardiac Rhythm: [x] NSR, [] SB, [] ST, [] A-FIB, [] A-Flutter, [] Pacemaker, [] 1st Degree HB, [] 2nd Degree HB, [] 3rd Degree HB Reason for Trade Recruiter: VS: Visit Vitals BP (!) 145/75 (BP Location: Left arm) Pulse 83 Temp 36.7 ??C (98 ??F) (Oral) Resp 18 Ht 1.626 m (64 ) Wt 127 kg (279 lb) SpO2 93% BMI 47.89 kg/m?? Smoking Status Former BSA 2.26 m?? Current Mental Status: A/O x [x]4, []3, []2, []1 Current Ambulation Status: independent IV Access: [x] Yes / [] No Field IV present: [] Yes / [x] No Hx of Violence: [] Yes / [x] No / [] Unknown Fall Risk:[] Yes / [x] No Yellow Bracelet Applied [] Yes / [x] No Yellow Socks Applied [] Yes / [x] No Patient Belongings inventoried and BL completed: [x] Yes / [] No Patient belongings stored in the security closet: [] Yes (If Yes please supply Security bag #): [x] No Patient Medications stored in Pharmacy: [] Yes (If Yes please supply Medication Security bag #): [x] No ED Summary of Care: cp x3 weeks with bilateral leg swelling, current outpt workup for cushings. Recently started lasix with no improvement. Hx of brain aneurysm. Chest ct tiny bilat pulm emboli. Elevated d dimer and aptt, as well as CRP Submitted by and Phone Extension: [phone] * Rika Augustin RN - 02/23/2024 9:05 AM EST 02/23/24 0903 Initial Transition Plan Initial Transition Plan Home Back up Transition Plan Back up Transition plan Home Discharge Planning Contact (Name, Phone #, Relationship) for DC Planning Alejandra Ferreira mother [phone] Living Arrangements Parent;Children;Other (Comment) (Lives with mother/15yr old daughter/adult daughter/daughter's fiance and grandchild) Type of Residence Private residence (three level home has three steps to enter) Assistive Devices None Medication Coverage Has Med Coverage Under Insurance Plan Yes Medication Affordability No concerns related to payment for meds Informed Choice Informed Choice Given? Yes (choice form completed) Transportation Transportation at discharge Family Met with pt in regards to discharge planning, demographics, PCP, insurance reviewed. Pt is not a . Uses [place], [place]. No discharge needs anticipated patient is independent with shopping/appts. * Angelina Le RN - 02/22/2024 8:01 PM EST Pt reports chest pain off and on 3 weeks . Pt reports pain is sharp and rad to back and left shoulder . Pt reports she had a cough and feels the pain is from constant coughing . Pt was tested flu rsvcovid all neg . Treated with antibiotics for pneumonia . Pt also reports left leg swelling started about 1 year ago and her pcp is following her. * Pamela Sommer MD - 02/22/2024 7:20 PM EST Emergency Medicine Note Patient Name: Juan A Ferreira Initial Evaluation: 02/22/2024 : 1975 Patient's PCP: Lynne Jean MD Emergency Physician: Pamela Sommer MD History of Present Illness Chief Complaint: Chief Complaint Patient presents with Chest Pain Left chest pain with left LLE edema for a couple of days. HPI: 48-year-old female with extensive past medical history including PMR, brain aneurysm, Amber syndrome presenting with chest pain, shortness of breath, wet cough productive of yellow and green sputum ongoing for the last 4 weeks or so. Admits she has been seen by her primary care doctor multiple times for this, started on several antibiotics, Tessalon Perles, nebulizer treatments, steroids and her cough has only progressed. Cough is described as wet, productive of green and yellow sputum. Describes pain in her left anterior chest wall that is worse with deep breaths and movement. Admits that she is having a hard time getting around due to dyspnea. Also describes bilateral lower extremity edema which has been worsening over time despite being started on Lasix 6 days ago. ROS: I have performed a ROS with the pertinent positives and negatives documented in the history ofpresent illness. Previous History Past Medical History: Diagnosis Date Acute neck pain DX:Acute neck pain Anxiety and depression DX:Anxiety and depression DDD (degenerative disc disease), cervical DX:DDD (degenerative disc disease), cervical Deficiency of vitamin B12 DX:Deficiency of vitamin B12 Hypertension DX:Hypertension Right cervical radiculopathy DX:Right cervical radiculopathy Uterine polyp DX:Uterine polyp Vitamin D deficiency DX:Vitamin D deficiency Past Surgical History: Procedure Laterality Date BREAST REDUCTION 2000 PROCEDURE: IN BREAST REDUCTION SECTION 2008 PROCEDURE: HISTORICAL CHOLECYSTECTOMY 08/17/2016 PROCEDURE: IN LAPAROSCOPY SURG CHOLECYSTECTOMY; COMMENT: Laparoscopic cholecystectomy; [place]; Dr. Matos NECK SURGERY Right 2006 PROCEDURE: HISTORICAL NECK SURGERY; COMMENT: C3-4 discectomy and fusion, Dr. Will OTHER SURGICAL HISTORY 2012 PROCEDURE: ENDOMETRAIL POLYP [facility] PATHOLOGY EXAM OTHER SURGICAL HISTORY PROCEDURE: TOTAL DISC ARTHRP ANT APW/DISCECTOMY CRV 3+; COMMENT: 2017 OTHER SURGICAL HISTORY PROCEDURE: IN ANESTHESIA CERVICAL SPINE & CORD NOS TONSILLECTOMY ADENOIDECTOMY, BILATERAL MYRINGOTOMY AND TUBES PROCEDURE: IN TONSILLECTOMY & ADENOIDECTOMY <AGE 14 Social History Tobacco Use Smoking status: Former Current packs/day: 0.00 Average packs/day: 1 pack/day for 12.0 years (12.0 ttl pk-yrs) Types: Cigarettes Start date: 02/06/1994 Quit date: 01/20/2006 Years since quittin.1 Smokeless tobacco: Never Substance Use Topics Alcohol use: Yes Drug use: No Family History Problem Relation Name Age of Onset Other (Other: hysterectomy) Mother 32.00 Other (Other: spinal) Mother Hypertension Mother Cataracts Mother Colon polyps Mother pre cancerous Other (Other: vascular problems) Father Other (Other: borderline personality d.o.) Daughter Giovanni Breast cancer Neg Hx Uterine cancer Neg Hx Ovarian cancer Neg Hx Colon cancer Neg Hx Prostate cancer Neg Hx Kidney cancer Neg Hx Cancer of Small Bowel Neg Hx Pancreatic cancer Neg Hx is allergic to sulfa (sulfonamide antibiotics), tramadol, and venlafaxine. No current facility-administered medications on file prior to encounter. Current Outpatient Medications on File Prior to Encounter Medication Sig Dispense Refill albuterol 2.5 mg /3 mL (0.083 %) nebulizer solution Take 1 Vial by nebulization every 4 hours as needed for Wheezing for up to 180 days. albuterol HFA (PROAIR HFA ; PROVENTIL HFA ; VENTOLIN HFA) 90 mcg/actuation inhaler Inhale 2 Puffs into the lungs every 4 hours as needed for Cough, Wheezing or Shortness of Breath. amLODIPine (NORVASC) 5 mg tablet Take 1 Tablet by mouth daily for 180 days. aspirin 81 mg EC tablet Take 1 tablet (81 mg total) by mouth 1 (one) time each day. atorvastatin (LIPITOR) 20 mg tablet Take 1 tablet (20 mg total) by mouth 1 (one) time each day. betamethasone valerate (VALISONE) 0.1 % ointment APPLY 1 G TO AFFECTED AREA DAILY NEEDED. buPROPion SR (WELLBUTRIN SR) 200 mg 12 hr tablet Take 1 tablet (200 mg total) by mouth 2 (two) times a day. cholecalciferol (VITAMIN D-3) 125 mcg (5,000 unit) capsule Take 1 capsule (5,000 Units total) by mouth 1 (one) time each day. clotrimazole-betamethasone (LOTRISONE) 1-0.05 % cream Apply topically as needed colestipoL (COLESTID) 1 gram tablet Take 1 tablet (1 g total) by mouth 1 (one) time each day. cyclobenzaprine (FLEXERIL) 10 mg tablet diazePAM (VALIUM) 5 mg tablet Take 1 Tablet by mouth every 8 hours as needed (muscle spasm). fluticasone HFA (FLOVENT HFA) 110 mcg/actuation inhaler Inhale 1 Puff into the lungs 2 times daily. fluticasone propionate (FLONASE) 50 mcg/actuation nasal spray Use 2 spray per nostril daily. gabapentin (NEURONTIN) 300 mg capsule TAKE 1 -2 CAPSULES BY MOUTH 3 TIMES A DAY FOR 30 DAYS ketotifen fumarate (ZADITOR) 0.035 % ophthalmic solution Place 1 Drop into both eyes 2 times daily for 10 days. loratadine (CLARITIN) 10 mg tablet Take 1 tablet (10 mg total) by mouth 1 (one) time each day. losartan-hydroCHLOROthiazide (HYZAAR) 100-25 mg per tablet Take 1 tablet by mouth 1 (one) time eachday. METOPROLOL SUCCINATE ORAL Take by mouth 2 times daily. montelukast (SINGULAIR) 10 mg tablet Take 1 tablet (10 mg total) by mouth at bedtime. norethindrone (MAKEDA,MARIA VICTORIA,ALEYDA,MICRONOR) 0.35 mg tablet Take 1 tablet (0.35 mg total) by mouth1 (one) time each day. ondansetron (ZOFRAN) 4 mg tablet Take 1 tablet (4 mg total) by mouth every 8 (eight) hours if needed for nausea. oxyCODONE (ROXICODONE) 5 mg immediate release tablet Take 1 Tablet by mouth every 12 hours as needed for Pain. reservoir inhalation (INSPIREASE) device Use as directed. SPIRONOLACTONE ORAL Take by mouth 2 times daily. Physical Exam ED Triage Vitals Temp Heart Rate Resp BP 02/22/24195302/22/24195302/22/24195302/22/241953 36.6 ??C (97.9 ??F) 87 18 139/89 SpO2 Temp Source Heart Rate Source Patient Position 02/22/24195302/22/24195302/22/246 02/22/242335 97 % Oral Monitor Sitting BP Location FiO2 (%) -- -- GENERAL: Ill-appearing, moderate respiratory distress. SKIN: Normal skin color for ethnicity, warm, dry, no rashes noted. HEENT: Normocephalic, atraumatic, no stridor, EOMI. NECK: Soft, supple, full ROM, midline structures nontender, no step-offs, no deformities, no lymphadenopathy. CHEST: Heart regular tachycardia, symmetric chest rise and fall. PULMONARY: Coarse lung sounds bilaterally, diminished at the bases, moderate respiratory distress with poor air movement, no wheezes. ABDOMINAL: Soft, protuberant nontender, quiet bowel sounds in all quadrants. : Deferred. MUSCULOSKELETAL: Normal tone, full range of motion, no deformities, 2+ peripheral edema bilaterally. NEURO: Alert and oriented to person, CN II through XII intact, no focal neurologic deficits. PSYCHIATRIC: Anxious affect, appropriate demeanor. Results Labs Reviewed COMPREHENSIVE METABOLIC PANEL - Abnormal Result Value Sodium 136 Potassium 3.8 Chloride 103 CO2 29 Anion Gap 4 Glucose 139 (*) BUN 10 Creatinine 1.10 eGFR 63 BUN/Creatinine Ratio 9.1 Calcium 8.7 AST (SGOT) 23 ALT (SGPT) 44 Alkaline Phosphatase 95 Total Protein 7.3 Albumin 3.3 Total Bilirubin 0.3 MAGNESIUM - Abnormal Magnesium 1.8 (*) D-DIMER - Abnormal D-Dimer, Quant (D-DU) 309 (*) Narrative: D-Dimer <230 ng/mL (D-Dimer units) is the threshold for exclusion of DVT/PE. D-Dimer may be elevated in: Critically ill, severely infected, trauma patients, DIC, acute CVA, acute AK, unstable angina, AF, old age, , and smoking. D-Dimer may be decreased with: Initiation of heparin therapy and oral anticoagulants. RESPIRATORY VIRUS PANEL MOLECULAR STUDY - Normal Adenovirus Detection by PCR Not Detected Influenza A PCR Not Detected Influenza B PCR Not Detected Coronavirus 229E Not Detected Coronavirus HKU1 Not Detected Coronavirus OC43 Not Detected Coronavirus NL63 Not Detected Parainfluenza Virus 1 Not Detected Parainfluenza Virus 2 Not Detected Parainfluenza Virus 3 Not Detected Parainfluenza Virus 4 Not Detected RSV PCR Not Detected Human Metapneumovirus A and B Not Detected Rhinovirus/Enterovirus Not Detected Bordetella pertussis Not Detected Bordetella parapertussis Not Detected Mycoplasma pneumo by PCR Not Detected Chlamydia pneumoniae Not Detected SARS COV-2 Not Detected Narrative: Testing was performed using the [employer] Respiratory Pathogen PCR Assay. All results must [...] that are below the limit of detection. TROPONIN I HIGH SENSITIVITY - Normal High Sensitivity Troponin I 8 Narrative: High levels of biotin in samples may falsely decrease hsTroponin values. Use caution when interpreting hsTroponin results in patients taking biotin who exhibit renal impairment (eGFR <60) or in patients taking more than 20 mg/day of biotin. TROPONIN I HIGH SENSITIVITY - Normal High Sensitivity Troponin I 8 Narrative: High levels of biotin in samples may falsely decrease hsTroponin values. Use caution when interpreting hsTroponin results in patients taking biotin who exhibit renal impairment (eGFR <60) or in patients taking more than 20 mg/day of biotin. LIPASE - Normal Lipase 34 B-TYPE NATRIURETIC PEPTIDE - Normal BNP 8 POC , URINE DIAGNOSTIC - Normal HCG, Ur POC Negative POC hCG Int QC Pass? Yes EXPIRATION DATE POC LOT NUMBER POC CBC AND DIFFERENTIAL Narrative: The following orders were created for panel order CBC and differential. Procedure Abnormality Status --------- ------ CBC auto differential[[id number]] Final result Please view results for these tests on the individual orders. CBC WITH AUTO DIFFERENTIAL WBC 8.3 RBC 4.40 Hemoglobin 12.9 Hematocrit 39.9 MCV 90.3 MCH 29.2 MCHC 32.3 RDW 13.1 Platelets 377 MPV 9.3 NRBC 0.0 NRBC Absolute 0.00 Neutrophils Relative 54.7 Lymphocytes Relative 32.9 Monocytes Relative 7.0 Eosinophils Relative 4.5 Basophils Relative 0.5 Immature Granulocytes Relative 0.4 Neutrophils Absolute 4.53 Lymphocytes Absolute 2.72 Monocytes Absolute 0.58 Eosinophils Absolute 0.37 Basophils Absolute 0.04 Immature Granulocytes Absolute 0.03 B-TYPE NATRIURETIC PEPTIDE POC , URINE DIAGNOSTIC Abnormal Labs Reviewed COMPREHENSIVE METABOLIC PANEL - Abnormal; Notable for the following components: Result Value Glucose 139 (*) All other components within normal limits MAGNESIUM - Abnormal; Notable for the following components: Magnesium 1.8 (*) All other components within normal limits D-DIMER - Abnormal; Notable for the following components: D-Dimer, Quant (D-DU) 309 (*) All other components within normal limits Narrative: D-Dimer <230 ng/mL (D-Dimer units) is the threshold for exclusion of DVT/PE. D-Dimer may be elevated in: Critically ill, severely infected, trauma patients, DIC, acute CVA, acute AK, unstable angina, AF, old age, , and smoking. D-Dimer may be decreased with: Initiation of heparin therapy and oral anticoagulants. CT Angio Chest wo and/or w Contrast Final Result Addendum (preliminary) 1 of ADDENDUM: This report was discussed with HAROLDO ALMARAZ on Feb 23, 2024 04:47:00 EST. This document has been electronically signed by: Katalina Purvis on 02/23/2024 04:47:59 Final 1. Tiny bilateral segmental and subsegmental pulmonary emboli. No right heart strain. 2. Left lower lobe atelectasis with dense consolidation. Developing pneumonia not excluded. This document has been electronically signed by: You Ibanez MD on 02/23/2024 04:44:23 XR Chest 2 Views (Results Pending) My independent interpretation of the chest x-ray reveals no consolidations, pleural effusion, pneumothorax, obvious bony abnormalities. Minimal vascular congestion. I have discussed the incidental/abnormal imaging and/or lab abnormalities with the patient and haveinstructed them the need for further evaluation and workup with their primary care doctor. I have provided the patient with a paper copy of the abnormality. The laboratory results, imaging results and other diagnostic exam results were reviewed in the EMR. EKG Interpretation My independent interpretation of the ECG reveals normal sinus rhythm with rate of 94, leftward axis, normal intervals, no ST elevations or depressions to suggest ischemic changes, no previous for comparison. Critical Care Time None ? Medical Decision Making Patient presents today with a chief complaint of chest pain. Differential diagnosis includes, but is not limited to, acute coronary syndrome, musculoskeletal pain, pneumothorax, GERD, pleurisy, pulmonary embolism, dissection, among others. I will order EKG, chest x-ray, the laboratory workup including cardiac enzymes to further evaluate for etiology. Clinically, patient presents as bronchitis that has been persistent for weeks. Possible she has pertussis but she is up-to-date on her Tdap. She has some volume overload in her legs but I hear no crackles on her chest exam. She has normal oxygen levels while resting on the stretcher. Will add on Lasix and medicate for her cough. I have added on a D- dimer though she did have a normal D-dimer about a week ago at her doctor's office, we will see if it trends higher today. If she improves after IV Lasix, will consider discharge if her oxygen saturations improve. D-dimer is slightly elevated from previous. Will add on a CTA. Patient continues to have dyspnea particularly with exertion. She is ambulatory in the emergency department. Oxygen level remains in themid 90s with ambulation but her heart rate jumps up into the 120s. She is feeling slightly improvedafter cough medicine and an albuterol treatment. CTA shows evidence of bilateral subsegmental and segmental pulmonary embolism, no right heart strain. She also has a left lower lobe infiltrate. Plan for admission for further care and evaluation. Admitted in guarded condition. Medications cefTRIAXone (ROCEPHIN) 1 g in sterile water 10 mL IV syringe (has no administration in time range) doxycycline (VIBRAMYCIN) 100 mg in sodium chloride 0.9 % 100 mL IVPB (has no administration in timerange) enoxaparin (LOVENOX) injection 120 mg (has no administration in time range) furosemide (LASIX) injection 40 mg (40 mg intravenous Given 02/23/24 0032) guaiFENesin-codeine (ROBITUSSIN-AC) 100-10 mg/5 mL syrup 10 mL (10 mL oral Given 02/23/24 0044) ipratropium-albuteroL (DUONEB) 0.5-2.5 mg/3 mL nebulizer solution 3 mL (3 mL nebulization Given 02/23/24 0324) sodium chloride 0.9 % flush 10 mL (10 mL intravenous Given 02/23/24420) iopamidoL (ISOVUE-370) 370 mg iodine /mL (76 %) injection 90 mL (84 mL intravenous Given 02/23/24420) Clinical Impressions as of 02/23/24527 Acute hypoxic respiratory failure (CMS/HCC) Multiple subsegmental pulmonary emboli without acute cor pulmonale (CMS/HCC) Dyspnea on exertion Pneumonia of left lower lobe due to infectious organism Procedures Procedures Diagnosis 1. Acute hypoxic respiratory failure (CMS/HCC) CT Angio Chest wo and/or w Contrast CT Angio Chest wo and/or w Contrast 2. Multiple subsegmental pulmonary emboli without acute cor pulmonale (CMS/HCC) 3. Dyspnea on exertion 4. Pneumonia of left lower lobe due to infectious organism Disposition Admit to Inpatient ED Prescriptions None Physician Attestation Pamela Sommer MD 02/23/2443 Pamela Sommer MD 02/23/24527 documented in this encounter H&P Notes * Senia Ulloa NP - 02/23/2024 8:09 AM EST Images from the original note were not included. History of present illness: Review of Systems: History of present illness: This is a 48-year-old female with a left below mentioned medical problems who presents to the emergency room with complaints of sharp chest pain that radiates from the front to the back. She reports to me that she recently completed a course of antibiotics for pneumonia. She has felt short of breath. She also notes that her lower extremities have been swelling and she was put on Lasix for that but she notes that her legs are still quite edematous.. Workup in the emergency room included a chest CTA concerning for tiny bilateral segmental and subsegmental pulmonary emboli with no right heart strain Respiratory viral panel was negative. CBC was nonconcerning including a white count of 8.3 BMP showed a random glucose of 139 and a magnesium of 1.8 otherwise nonconcerning High sensitive troponin is negative x 2 at 8 and 8. BN P is quite low at 8 D- dimer was 309 She was treated with ceftriaxone and doxycycline, 40 mg of IV Lasix and a DuoNebs and Xarelto Review of Systems: No complaints of headaches change in vision difficulty chewing swallowing speaking. She did have some chest pain as stated above that radiated to her left shoulder and her back. No fevers or shaking chills. She reports that she had been coughing with greenish-yellow sputum. She denies any fever shaking chills. No abdominal pain nausea vomiting diarrhea no blood in the urine or stool as stated shedoes have lower extremity edema. Past medical history: Cervical radiculopathy, right Polymyalgia rheumatica Hypertension Hyperlipidemia Anxiety depression Vitamin B12 deficiency Being worked up for Eveline syndrome Morbid obesity Past surgical history: Cervical fusion section Tonsillectomy and adenoidectomy Myringotomy tubes Cholecystectomy Breast reduction Irregular menses for which she takes progesterone Family history: Father having COPD and peripheral vascular disease Mother has heart disease. There are multiple family members with diabetes and heart disease. 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 She lives at home with her mother her daughters and grandchildren. She is a former smoker but quit in 2005. She denies alcohol marijuana and illicit drug use She gets around independently Physical Exam: GENERAL: Is a middle-aged female seen lying on a stretcher she is awake answering questions not in acute distress. HEENT: Patient is normocephalic atraumatic pupils round and reactive no scleral icterus EOMI. Oral mucous membranes are pink and moist neck is supple without JVD. Trachea is midline CARDIAC: S1 and S2 heard without murmurs rubs gallops. RESPIRATORY: Lungs are clear to auscultation. No wheezing rales or rhonchi. No accessory muscle use. GI: Abdomen is soft no guarding no rebound tenderness bowel sounds are present. : Deferred EXTREMITIES: 2+ bilateral lower extremity edema. No asymmetrical edema distal pulses are palpable. Feet are warm and well perfused with capillary refill less than 2 seconds. NEUROLOGICAL: Patient is alert and oriented. Cranial nerves II through XII are intact out focal deficits. Allergies: Sulfa Tramadol venlafaxine. Home medications: Albuterol 2 puffs as needed Alprazolam 0.5 mg at bedtime Aspirin 81 mg daily Wellbutrin SR 100 mg daily B12 1000 mcg injections monthly Diazepam 5 mg as needed anxiety has not taken it in over a week Fluoxetine 40 mg daily, admits she doesn't take it regularly and not filled it since September becauseshe had 10mg tabs which she wanted to use up. Folic acid 1 mg daily Furosemide 40 mg daily Atrovent 4 puffs daily as needed Losartan-hydrochlorothiazide 100-25 mg daily Metoprolol 12.5mg daily as needed for resist. Htn. has not taken it in over 3 weeks Norethindrone 0.35 mg daily oxycodone 5mg qid prn 25 mg daily lyrica 75mg bid but has not yet started Diagnostics: ADDENDUM: This report was discussed with HAROLDO ALMARAZ on Feb 23, 2024 04:47:00 EST. This document has been electronically signed by: Katalina Purvis on 02/23/2024 04:47:59 Finalized by You Ibanez MD on MonFeb 23, 2024 4:[address] angiography chest with contrast. 3D Postprocessing. Comparison: None Findings: Tiny bilateral segmental and subsegmental pulmonary emboli. No right heart strain. Mild cardiomegaly. Unremarkable thoracic aorta and great vessels. No aneurysm. Small hiatal hernia. Left lower lobe atelectasis with dense consolidation. No significant pleural effusion or pneumothorax. Hepatomegaly with steatosis. The bones are intact. Postcholecystectomy. IMPRESSION: 1. Tiny bilateral segmental and subsegmental pulmonary emboli. No right heart strain. 2. Left lower lobe atelectasis with dense consolidation. Developing pneumonia not excluded. This document has been electronically signed by: You Ibanez MD on 02/23/2024 04:44:23 EKG showed normal sinus rhythm rate of 87 bpm minimal voltage criteria for LVH may be a normal variant Assessment and Plan: 1. Bilateral pulmonary emboli. She has been started on Xarelto. No heart strain by CT will get an echocardiogram and we will also rule out DVT in both her legs given the edema. 2. Left lower lobe consolidation. Patient recently completed a course of antibiotics. She was treated with ceftriaxone and doxycycline in the emergency room. We have added a procalcitonin and CRP we will hold off on further antibiotics for now. Hypertension continue losartan hydrochlorothiazide. She takes the metoprolol only as needed for hypertension. 3. Primary HTN. Continue losartan hydrochlorothiazide. She is also on metoprolol but only takes it as needed resistant hypertension. 4. Cervical radiculopathy she does take hydrocodone I will offer it twice daily as needed 5. Anxiety and depression we will continue her Wellbutrin fluoxetine and alprazolam. DVT prophylaxis: Xarelto Healthcare proxy: No formal designation but she lists her mother Alejandra Solano is a contact [phone]. CODE STATUS: Full code Case plan discussed with Dr. Hodge I spent greater than 35 minutes evaluating the patient reviewing diagnostics labs medications and formulating plan of care. Associated attestation - Abdon Hodge MD - 02/23/2024 11:49 AM EST This is a split/shared visit with Senia Ulloa NP. I personally performed the medical decision making (MDM) for the care of this patient on 02/23/24 as documented below Patient was discussed with Advanced Practice Provider. I personally saw and examined the patient atbedside. In brief, 48 yo former smoker and obese woman comes with CP & SOB x 2 weeks. Recently treated as OPT for CAP.. Some LLE swelling. Was found with bilateral small subsegmental pulmonary emboli. First VTE episode. Started on DOAC, Will obtain duplex US of legs. I independently obtained further history and reviewed significant updates, labs and imaging. I alsocontacted pertinent consultants in order to facilitate patient's medical care. Otherwise, I agree with the documentation and plan as outlined in the note below. Abdon Hodge MD 02/23/24 11:44 AM EST documented in this encounter Plan of Treatment Pending Results Name Type Priority Associated Diagnoses Date /Time POC , urine manually resulted Point of Care Testing STAT 02/22/2024 9:26 PM EST Scheduled Orders Name Type Priority Associated Diagnoses Orde r Schedule POC , urine manually resulted Point of Care Testing STAT Once for 1 Occurrences starting 02/22/2024 until 02/22/2024 documented as of this encounter Procedures Procedure Name Priority Date/Time Associated Diagnosis Comments CBC WITH AUTO DIFFERENTIAL Routine 02/24/2024 5:54 AM EST CBC AND DIFFERENTIAL Routine 02/24/2024 5:54 AM EST BASIC METABOLIC PANEL Routine 02/24/2024 5:54 AM EST VAS US DUPLEX LOWER EXT VENOUS BILAT Routine 02/23/2024 12:32 PM EST Localized swelling of both lower extremities C-REACTIVE PROTEIN STAT 02/23/2024 9: 23 AM EST EXTRA TUBES Routine 02/23/2024 9:21 AM EST LAVENDER - EDTA Routine 02/23/2024 9:21 AM EST ACTIVATED PARTIAL [...] 2 VIEWS STAT 02/22/2024 9:34 PM EST TROPONIN I HIGH SENSITIVITY STAT 02/22/2024 8:55 PM EST PROCALCITONIN Add-On 02/22/2024 8:55 PM EST CBC WITH AUTO DIFFERENTIAL STAT 02/22/2024 8:55 PM EST CBC AND DIFFERENTIAL STAT 02/22/2024 8:55 PM EST C-REACTIVE PROTEIN Add-On 02/22/2024 8: 55 PM EST MAGNESIUM STAT 02/22/2024 8:55 PM EST LIPASE STAT 02/22/2024 8:55 PM EST COMPREHENSIVE METABOLIC PANEL STAT 02/22/2024 8:55 PM EST ECG 12-LEAD STAT 02/22/2024 7:26 PM EST ECG ANNOTATED 02/22/2024 documented in this encounter Results * CBC auto differential (02/24/2024 5:54 AM EST) WBC 7.4 4.8 - 10.8 K/mcL LAB HEMETOLOGY METHOD 02/24/2024 7:02 AM EST [facility] RBC 4.20 3.80 - 4.80 M/mcL LAB HEMETOLOGY METHOD 02/24/2024 7:02 AM EST [facility] Hemoglobin 12.0 11.5 - 16.0 g/dL LAB HEMETOLOGY METHOD 02/24/2024 7:02 AM EST [facility] Hematocrit 37.0 35.0 - 47.0 % LAB HEMETOLOGY METHOD 02/24/2024 7:02 AM [facility] MCV 88.1 79.0 - 98.0 FL LAB HEMETOLOGY METHOD 02/24/2024 7:02 AM [facility] MCH 28.6 27.0 - 32.0 pcg LAB HEMETOLOGY METHOD 02/24/2024 7:02 AM [facility] MCHC 32.4 32.0 - 37.0 g/dL LAB HEMETOLOGY METHOD 02/24/2024 7:02 AM [facility] RDW 13.2 11.0 - 15.0 % LAB HEMETOLOGY METHOD 02/24/2024 7:02 AM [facility] Platelets 330 130 - 400 K/mcL LAB HEMETOLOGY METHOD 02/24/2024 7:02 AM [facility] MPV 9.3 7.0 - 11.0 FL LAB HEMETOLOGY METHOD 02/24/2024 7:02 AM [facility] NRBC 0.0 <1.0 % LAB HEMETOLOGY METHOD 02/24/2024 7:02 AM [facility] NRBC Absolute 0.00 <0.10 K/mcL LAB HEMETOLOGY METHOD 02/24/2024 7:02 AM [facility] Neutrophils Relative 62.0 % LAB HEMETOLOGY METHOD 02/24/2024 7:02 AM [facility] Lymphocytes Relative 25.5 % LAB HEMETOLOGY METHOD 02/24/2024 7:02 AM [facility] Monocytes Relative 7.4 % LAB HEMETOLOGY METHOD 02/24/2024 7:02 AM [facility] Eosinophils Relative 4.2 % LAB HEMETOLOGY METHOD 02/24/2024 7:02 AM [facility] Basophils Relative 0.5 % LAB HEMETOLOGY METHOD 02/24/2024 7:02 AM EST [facility] Immature Granulocytes Relative 0.4 % LAB HEMETOLOGY METHOD 02/24/2024 7:02 AM EST [facility] Neutrophils Absolute 4.60 1.50 - 7.00 K/[facility] LAB HEMETOLOGY METHOD 02/24/2024 7:02 AM EST [facility] Lymphocytes Absolute 1.89 1.00 - 5.00 K/mcL LAB HEMETOLOGY METHOD 02/24/2024 7:02 AM [facility] Monocytes Absolute 0.55 0.20 - 1.00 K/mcL LAB HEMETOLOGY METHOD 02/24/2024 7:02 AM EST [facility] Eosinophils Absolute 0.31 0.00 - 0.50 K/mcL LAB HEMETOLOGY METHOD 02/24/2024 7:02 AM [facility] Basophils Absolute 0.04 0.00 - 0.20 K/mcL LAB HEMETOLOGY METHOD 02/24/2024 7:02 AM [facility] Immature Granulocytes Absolute 0.03 0.00 - 0.03 K/mcL LAB HEMETOLOGY METHOD 02/24/2024 7:02 AM [facility] Blood Venous blood specimen / Unknown Venipuncture / Unknown 02/24/2024 5:54 AM EST 02/24/2024 6:49 AM EST Venancio Kaye MD LAB BLOOD ORDERABLE S [facility] [address] [place] [address], * (ABNORMAL) Basic metabolic panel (02/24/2024 5:54 AM EST) Sodium 137 133 - 145 mmol/L LAB CHEMISTRY METHOD 02/24/2024 8:19 AM EST [facility] Potassium 3.8 3.5 - 5.5 mmol/L LAB CHEMISTRY METHOD 02/24/2024 8:19 AM [facility] Chloride 103 96 - 110 mmol/L LAB CHEMISTRY METHOD 02/24/2024 8:19 AM [facility] CO2 28 21 - 32 mmol/L LAB CHEMISTRY METHOD 02/24/2024 8:19 AM [facility] Anion Gap 6 3 - 11 LAB CHEMISTRY METHOD 02/24/2024 8:19 AM [facility] Glucose 129(H) 70 - 100 mg/dL LAB CHEMISTRY METHOD 02/24/2024 8:19 AM [facility] BUN 14 5 - 25 mg/dL LAB CHEMISTRY METHOD 02/24/2024 8:19 AM [facility] Creatinine 0.83 0.50 - 1.10 mg/dL LAB CHEMISTRY METHOD 02/24/2024 8:19 AM [facility] eGFR 88 >=60 mL/min/1. 73m2 LAB CHEMISTRY METHOD 02/24/2024 8:19 AM [facility] Comment:Calculation based on the??Chronic Kidney Disease Epidemiology Collaboration (CKD-EPI) equation refit??without adjustment for race. BUN/Creatinine Ratio 16.9 LAB CHEMISTRY METHOD 02/24/2024 8:19 AM [facility] Calcium 8.6 8.5 - 10.5 mg/dL LAB CHEMISTRY METHOD 02/24/2024 8:19 AM [facility] Blood Venous blood specimen / Unknown Venipuncture / Unknown 02/24/2024 5:54 AM EST 02/24/2024 6:51 AM EST Venancio Kaye MD LAB BLOOD ORDERABLE S [facility] [address] [place] [address], [place] [phone] * Vascular US duplex lower extremity venous [...] Signed Date: 02/23/2024 12:37 ET Workstation ID: [id number] Transcribed By: Self Edit Transcribed Date: 02/23/2024 [...] Signed Date: 02/23/2024 12:37 ET Workstation ID: [id number] Transcribed By: Self Edit Transcribed Date: 02/23/2024 12:30 ET Venancio Kaye MD CV VASCULAR PROCEDU RES * (ABNORMAL) C-reactive protein (02/23/2024 9:23 AM EST) Pathologist [facility] C-Reactive Protein 1.38(H) <=0.50 mg/dL LAB CHEMISTRY METHOD 02/23/2024 10:12 AM EST [facility] Blood Venous blood specimen / Unknown Venipuncture / Unknown 02/23/2024 9:23 AM EST 02/23/2024 9:27 AM EST Senia Ulloa NP LAB BLOOD ORDERABLES Performing Organization Address City/[facility]/ZIP Co de Phone Number [facility] [address] [place] [address], * Lavender tube (02/23/2024 9:21 AM EST) Pathologist [facility] Extra Tube Hold for add-ons. 02/23/2024 11:02 AM EST [facility] Comment:Auto resulted. Blood Venous blood specimen / Unknown Venipuncture / Unknown 02/23/2024 9:21 AM EST 02/23/2024 9:27 AM EST Pamela Sommer MD LAB BLOOD ORDERA BLES Performing Organization Address City/[facility]/ZIP Co de Phone Number [facility] [address] [place] [address], [place] [phone] * (ABNORMAL) Activated Partial Thromboplastin Time - STAT (02/23/2024 7:31 AM EST) Pathologist [facility] aPTT 42.3(H) 24.1 - 39.3 sec LAB COAGULATION METHOD 02/23/2024 8:21 AM EST [facility] Blood Venous blood specimen / Unknown Venipuncture / Unknown 02/23/2024 7:31 AM EST 02/23/2024 7:52 AM EST Venancio Kaye MD LAB [facility]LOOD [facility] [address] [place] [address], * CT Angio Chest wo and/or w Contrast (02/23/2024 4:25 AM EST) Anatomical Region Laterality Modality Body Computed Tomogra phy 02/23/2024 4:44 AM EST Addenda Addendum by You Ibanez MD on 02/23/2024 4:47 AM EST ADDENDUM: This report was discussed with HAROLDO ALMARAZ on Feb 23, 2024 04:47:00 EST. This document has been electronically signed by: Katalina Purvis on 02/23/2024 04:47:59 Impressions 02/23/2024 4:44 AM EST 1. Tiny bilateral segmental and subsegmental pulmonary emboli. No right heart strain. 2. Left lower lobe atelectasis with dense consolidation. Developing pneumonia not excluded. This document has been electronically signed by: You Ibanez MD on 02/23/2024 04:44:23 Narrative 02/23/2024 4:[address] angiography chest with contrast. 3D Postprocessing. Comparison: None Findings: Tiny bilateral segmental and subsegmental pulmonary emboli. No right heart strain. Mild cardiomegaly. Unremarkable thoracic aorta and great vessels. No aneurysm. Small hiatal hernia. Left lower lobe atelectasis with dense consolidation. No significant pleural effusion or pneumothorax. Hepatomegaly with steatosis. The bones are intact. Postcholecystectomy. Procedure Note You Ibanez MD - 02/23/2024 CT angiography chest with contrast. 3D Postprocessing. Comparison: None Findings: Tiny bilateral segmental and subsegmental pulmonary emboli. No rightheart strain. Mild cardiomegaly. Unremarkable thoracic aorta and great vessels. No aneurysm. Small hiatal hernia. Left lower lobe atelectasis with dense consolidation. No significant pleural effusion or pneumothorax. Hepatomegaly with steatosis. The bones are intact. Postcholecystectomy. IMPRESSION: 1. Tiny bilateral segmental and subsegmental pulmonary emboli. No right heart strain. 2. Left lower lobe atelectasis with dense consolidation. Developing pneumonia not excluded. This document has been electronically signed by: You Ibanez MD on 02/23/2024 04:44:23 Pamela Sommer MD IMG CT PROCEDURE S * B-type natriuretic peptide (02/23/2024 2:29 AM EST) [facility] BNP 8 <=100 pcg/mL LAB CHEMISTRY METHOD 02/23/2024 3:20 AM EST [facility] Blood Venous blood specimen / Unknown Venipuncture / Unknown 02/23/2024 2:29 AM EST 02/23/2024 2:47 AM EST Pamela Sommer MD LAB BLOOD ORDERA BLES [facility] [address] [place] [address], * Respiratory virus panel molecular study (02/23/2024 12:36 AM EST) [facility] Adenovirus Detection by PCR Not Detected Not Detected LAB MICROBIOLOGY METHOD 02/23/2024 1:45 AM EST [facility] Influenza A PCR Not Detected Not Detected LAB MICROBIOLOGY METHOD 02/23/2024 1:45 AM [facility] Influenza B PCR Not Detected Not Detected LAB MICROBIOLOGY METHOD 02/23/2024 1:45 AM [facility] Coronavirus 229E Not Detected Not Detected LAB MICROBIOLOGY METHOD 02/23/2024 1:45 AM EST [facility] Coronavirus HKU1 Not Detected Not Detected LAB MICROBIOLOGY METHOD 02/23/2024 1:45 AM [facility] Coronavirus OC43 Not Detected Not Detected LAB MICROBIOLOGY METHOD 02/23/2024 1:45 AM EST [facility] Coronavirus NL63 Not Detected Not Detected LAB MICROBIOLOGY METHOD 02/23/2024 1:45 AM [facility] Parainfluenza Virus 1 Not Detected Not Detected LAB MICROBIOLOGY METHOD 02/23/2024 1:45 AM [facility] Parainfluenza Virus 2 Not Detected Not Detected LAB MICROBIOLOGY METHOD 02/23/2024 1:45 AM [facility] Parainfluenza Virus 3 Not Detected Not Detected LAB MICROBIOLOGY METHOD 02/23/2024 1:45 AM [facility] Parainfluenza Virus 4 Not Detected Not Detected LAB MICROBIOLOGY METHOD 02/23/2024 1:45 AM [facility] RSV PCR Not Detected Not Detected LAB MICROBIOLOGY METHOD 02/23/2024 1:45 AM [facility] Human Metapneumovirus A and B Not Detected Not Detected LAB MICROBIOLOGY METHOD 02/23/2024 1:45 AM [facility] Rhinovirus/Entero virus Not Detected Not Detected LAB MICROBIOLOGY METHOD 02/23/2024 1:45 AM [facility] Bordetella pertussis Not Detected Not Detected LAB MICROBIOLOGY METHOD 02/23/2024 1:45 AM [facility] Bordetella parapertussis Not Detected Not Detected LAB MICROBIOLOGY METHOD 02/23/2024 1:45 AM [facility] Mycoplasma pneumo by PCR Not Detected Not Detected LAB MICROBIOLOGY METHOD 02/23/2024 1:45 AM [facility] Chlamydia pneumoniae Not Detected Not Detected LAB MICROBIOLOGY METHOD 02/23/2024 1:45 AM [facility] SARS COV-2 Not Detected Not Detected LAB MICROBIOLOGY METHOD 02/23/2024 1:45 AM [facility] Swab Nasopharyngeal structure / Unknown Non-blood Collection / Unknown 02/23/2024 12:36 AM EST 02/23/2024 12:49 AM EST [facility] - 02/23/2024 1:45 AM EST Testing was performed using the [employer] Respiratory Pathogen PCR Assay. All results must [...] MICROBIOLOGY - GENERAL ORDERABLES Performing Organization Address [facility] Co de Phone Number [facility] [address] [place] [address], * Prothrombin Time with INR - STAT (02/23/2024 12:26 AM EST) [facility] Protime 10.8 10.6 - 13.9 sec LAB COAGULATION METHOD 02/23/2024 6:52 AM EST [facility] INR 0.9 LAB COAGULATION METHOD 02/23/2024 6:52 AM EST [facility] Blood Venous blood specimen / Unknown Venipuncture / Unknown 02/23/2024 12:26 AM EST 02/23/2024 12:49 AM EST Venancio Kaye MD LAB BLOOD ORDERABLE S Performing Organization Address [facility] Co de Phone Number [facility] [address] [place] [address], * (ABNORMAL) D-dimer, quantitative (02/23/2024 12:26 AM EST) Pathologist [facility] D-Dimer, Quant (D-DU) 309(H) <=230 ng/mL DDU LAB COAGULATION METHOD 02/23/2024 1:29 AM EST [facility] Blood Venous blood specimen / Unknown Venipuncture / Unknown 02/23/2024 12:26 AM EST 02/23/2024 12:49 AM EST Narrative [facility] - 02/23/2024 1:29 AM EST D-Dimer <230 ng/mL (D-Dimer units) is the threshold for exclusion of DVT/PE. D-Dimer may be elevated in: Critically ill, severely infected, trauma patients, DIC, acute CVA, acute AK, unstable angina, AF, old age, , and smoking. D-Dimer may be decreased with: Initiation of heparin therapy and oral anticoagulants. Pamela Sommer MD LAB BLOOD ORDERA BLES Performing Organization Address [facility] Co de Phone Number [facility] [address] [place] [address], * Troponin I high sensitivity (02/22/2024 10:00 PM EST) [facility] High Sensitivity Troponin I 8 <=54 ng/L LAB CHEMISTRY METHOD 02/22/2024 11:07 PM EST [facility] Blood Venous blood specimen / Unknown Venipuncture / Unknown 02/22/2024 10:00 PM EST 02/22/2024 10:17 PM EST Narrative [facility] - 02/22/2024 11:07 PM EST High levels of biotin in samples may falsely decrease hsTroponin values. ??Use caution when interpreting hsTroponin results in patients taking biotin who exhibit renal impairment (eGFR <60) or in patients taking more than 20 mg/day of biotin. Anahi Brantley DO LAB BLOOD ORDERAB LES Performing Organization Address [facility] Co de Phone Number [facility] [address] [place] [address], * ECG 12 lead (02/22/2024 9:55 PM EST) [facility] Ventricular Rate ECG 87 BPM [facility] Atrial Rate 87 BPM [facility] P-R Interval 140 ms GEM[facility] QRS Duration 90 ms [facility] Q-T Interval 376 ms GEMUSE QTc 452 ms GEMUSE P Wave Chestnut 45 degrees GEMUSE R Chestnut -14 degrees GEMUSE T Chestnut 20 degrees GEMUSE ECG Interpretation Normal sinus rhythm Normal ECG When compared with ECG of 22-FEB-2024 19:26, No significant change was found Confirmed by ART AGUILAR ([id number]) on 02/23/2024 5:18:44 PM [facility] 02/22/2024 9:55 PM EST 02/23/2024 5:18 PM EST Anahi Brantley DO ECG ORDERABLES [facility] * XR Chest 2 Views (02/22/2024 9:34 PM EST) Anatomical Region Laterality Modality Body Radiographic Erin ging 02/23/2024 9:32 AM EST Impressions 02/23/2024 9:32 AM EST No acute findings. -------- FINAL REPORT -------- Dictated By: You Tse Dictated Date: 02/23/2024 09:32 ET Assigned Physician: You Tse Reviewed and Electronically Signed By: You Tse Signed Date: 02/23/2024 09:32 ET Workstation ID: [id number] Transcribed By: Self Edit Transcribed Date: 02/23/2024 09:32 ET Narrative 02/23/2024 9:32 AM EST PROCEDURE: PA and lateral radiographs of the chest. HISTORY: chest pain. COMPARISON: 09/26/2020. FINDINGS: Heart, mediastinum, lungs, and pleural spaces are normal. ??ACDF hardware and cholecystectomy clips. ??Mild degenerative changes of the spine. Procedure Note You Tse MD - 02/23/2024 PROCEDURE: PA and lateral radiographs of the chest. HISTORY: chest pain. COMPARISON: 09/26/2020. FINDINGS: Heart, mediastinum, lungs, and pleural spaces are normal. ACDF hardwareand cholecystectomy clips. Mild degenerative changes of the spine. IMPRESSION: No acute findings. -------- FINAL REPORT -------- Dictated By: You Tse Dictated Date: 02/23/2024 09:32 ET Assigned Physician: You Tse Reviewed and Electronically Signed By: You Tse Signed Date: 02/23/2024 09:32 ET Workstation ID: [id number] Transcribed By: Self Edit Transcribed Date: 02/23/2024 09:32 ET Venancio Kaye MD IMG XR PROCEDURES * (ABNORMAL) C-reactive protein (02/22/2024 8:55 PM EST) Pathologist [facility] C-Reactive Protein 1.36(H) <=0.50 mg/dL LAB CHEMISTRY METHOD 02/23/2024 10:59 AM EST [facility] Blood Venous blood specimen / Unknown Venipuncture / Unknown 02/22/2024 8:55 PM EST 02/22/2024 9:03 PM EST Venancio Kaye MD LAB BLOOD ORDERABLE S [facility] [address] [place] [address], * Procalcitonin (02/22/2024 8:55 PM EST) [facility] Procalcitonin 0.03 <=0.16 ng/mL LAB CHEMISTRY METHOD 02/23/2024 10:13 AM EST [facility] Blood Venous blood specimen / Unknown Venipuncture / Unknown 02/22/2024 8:55 PM EST 02/22/2024 9:03 PM EST Narrative [facility] - 02/23/2024 10:13 AM EST Procalcitonin [...] Venancio Kaye MD LAB BLOOD ORDERABLE S [facility] [address] [place] [address], * CBC auto differential (02/22/2024 8:55 PM EST) WBC 8.3 4.8 - 10.8 K/mcL LAB HEMETOLOGY METHOD 02/22/2024 9:08 PM [facility] RBC 4.40 3.80 - 4.80 M/mcL LAB HEMETOLOGY METHOD 02/22/2024 9:08 PM EST [facility] Hemoglobin 12.9 11.5 - 16.0 g/dL LAB HEMETOLOGY METHOD 02/22/2024 9:08 PM EST [facility] Hematocrit 39.9 35.0 - 47.0 % LAB HEMETOLOGY METHOD 02/22/2024 9:08 PM [facility] MCV 90.3 79.0 - 98.0 FL LAB HEMETOLOGY METHOD 02/22/2024 9:08 PM [facility] MCH 29.2 27.0 - 32.0 pcg LAB HEMETOLOGY METHOD 02/22/2024 9:08 PM [facility] MCHC 32.3 32.0 - 37.0 g/dL LAB HEMETOLOGY METHOD 02/22/2024 9:08 PM [facility] RDW 13.1 11.0 - 15.0 % LAB HEMETOLOGY METHOD 02/22/2024 9:08 PM [facility] Platelets 377 130 - 400 K/mcL LAB HEMETOLOGY METHOD 02/22/2024 9:08 PM [facility] MPV 9.3 7.0 - 11.0 FL LAB HEMETOLOGY METHOD 02/22/2024 9:08 PM [facility] NRBC 0.0 <1.0 % LAB HEMETOLOGY METHOD 02/22/2024 9:08 PM [facility] NRBC Absolute 0.00 <0.10 K/mcL LAB HEMETOLOGY METHOD 02/22/2024 9:08 PM [facility] Neutrophils Relative 54.7 % LAB HEMETOLOGY METHOD 02/22/2024 9:08 PM [facility] Lymphocytes Relative 32.9 % LAB HEMETOLOGY METHOD 02/22/2024 9:08 PM [facility] Monocytes Relative 7.0 % LAB HEMETOLOGY METHOD 02/22/2024 9:08 PM [facility] Eosinophils Relative 4.5 % LAB HEMETOLOGY METHOD 02/22/2024 9:08 PM [facility] Basophils Relative 0.5 % LAB HEMETOLOGY METHOD 02/22/2024 9:08 PM [facility] Immature Granulocytes Relative 0.4 % LAB HEMETOLOGY METHOD 02/22/2024 9:08 PM [facility] Neutrophils Absolute 4.53 1.50 - 7.00 K/mcL LAB HEMETOLOGY METHOD 02/22/2024 9:08 PM [facility] Lymphocytes Absolute 2.72 1.00 - 5.00 K/mcL LAB HEMETOLOGY METHOD 02/22/2024 9:08 PM [facility] Monocytes Absolute 0.58 0.20 - 1.00 K/mcL LAB HEMETOLOGY METHOD 02/22/2024 9:08 PM EST [facility] Eosinophils Absolute 0.37 0.00 - 0.50 K/[facility] LAB HEMETOLOGY METHOD 02/22/2024 9:08 PM EST [facility] Basophils Absolute 0.04 0.00 - 0.20 K/[facility] LAB HEMETOLOGY METHOD 02/22/2024 9:08 PM EST [facility] Immature Granulocytes Absolute 0.03 0.00 - 0.03 K/[facility] LAB HEMETOLOGY METHOD 02/22/2024 9:08 PM EST [facility] Blood Venous blood specimen / Unknown Venipuncture / Unknown 02/22/2024 8:55 PM EST 02/22/2024 9:03 PM EST [facility] BLOOD ORDERAB LES Performing Organization Address City/[facility]/ZIP Co de Phone Number [facility] [address] [place] [address], [place] [phone] * (ABNORMAL) Magnesium (02/22/2024 8:55 PM EST) Magnesium 1.8(L) 1.9 - 2.6 mg/dL LAB CHEMISTRY METHOD 02/22/2024 9:30 PM EST [facility] Blood Venous blood specimen / Unknown Venipuncture / Unknown 02/22/2024 8:55 PM EST 02/22/2024 9:03 PM EST Anahi Mcdonald [facility] LAB BLOOD ORDERAB LES [facility] [address] [place] [address], [place] [phone] * Lipase (02/22/2024 8:55 PM EST) Lipase 34 13 - 75 unit/L LAB CHEMISTRY METHOD 02/22/2024 9:30 PM EST [facility] Blood Venous blood specimen / Unknown Venipuncture / Unknown 02/22/2024 8:55 PM EST 02/22/2024 9:03 PM EST Anahi Brantley DO LAB BLOOD ORDERAB LES [facility] [address] [place] [address], * (ABNORMAL) Comprehensive metabolic panel (02/22/2024 8:55 PM EST) Sodium 136 133 - 145 mmol/L LAB CHEMISTRY METHOD 02/22/2024 9:30 PM [facility] Potassium 3.8 3.5 - 5.5 mmol/L LAB CHEMISTRY METHOD 02/22/2024 9:30 PM [facility] Chloride 103 96 - 110 mmol/L LAB CHEMISTRY METHOD 02/22/2024 9:30 PM [facility] CO2 29 21 - 32 mmol/L LAB CHEMISTRY METHOD 02/22/2024 9:30 PM [facility] Anion Gap 4 3 - 11 LAB CHEMISTRY METHOD 02/22/2024 9:30 PM [facility] Glucose 139(H) 70 - 100 mg/dL LAB CHEMISTRY METHOD 02/22/2024 9:30 PM [facility] BUN 10 5 - 25 mg/dL LAB CHEMISTRY METHOD 02/22/2024 9:30 PM [facility] Creatinine 1.10 0.50 - 1.10 mg/dL LAB CHEMISTRY METHOD 02/22/2024 9:30 PM [facility] eGFR 63 >=60 mL/min/1. 73m2 LAB CHEMISTRY METHOD 02/22/2024 9:30 PM [facility] Comment:Calculation based on the??Chronic Kidney Disease Epidemiology Collaboration (CKD-EPI) equation refit??without adjustment for race. BUN/Creatinine Ratio 9.1 LAB CHEMISTRY METHOD 02/22/2024 9:30 PM EST [facility] Calcium 8.7 8.5 - 10.5 mg/dL LAB CHEMISTRY METHOD 02/22/2024 9:30 PM [facility] AST (SGOT) 23 10 - 42 unit/L LAB CHEMISTRY METHOD 02/22/2024 9:30 PM [facility] ALT (SGPT) 44 10 - 60 unit/L LAB CHEMISTRY METHOD 02/22/2024 9:30 PM [facility] Alkaline Phosphatase 95 42 - 121 unit/L LAB CHEMISTRY METHOD 02/22/2024 9:30 PM [facility] Total Protein 7.3 6.0 - 8.0 g/dL LAB CHEMISTRY METHOD 02/22/2024 9:30 PM [facility] Albumin 3.3 3.2 - 5.0 g/dL LAB CHEMISTRY METHOD 02/22/2024 9:30 PM [facility] Total Bilirubin 0.3 0.0 - 1.4 mg/dL LAB CHEMISTRY METHOD 02/22/2024 9:30 PM [facility] Blood Venous blood specimen / Unknown Venipuncture / Unknown 02/22/2024 8:55 PM EST 02/22/2024 9:03 PM EST Anahi Brantley DO LAB BLOOD ORDERAB LES [facility] [address] [place] [address], * Troponin I high sensitivity (02/22/2024 8:55 PM EST) High Sensitivity Troponin I 8 <=54 ng/L LAB CHEMISTRY METHOD 02/22/2024 9:31 PM EST [facility] Blood Venous blood specimen / Unknown Venipuncture / Unknown 02/22/2024 8:55 PM EST 02/22/2024 9:03 PM EST Narrative [facility] - 02/22/2024 9:31 PM EST High levels of biotin in samples may falsely decrease hsTroponin values. ??Use caution when interpreting hsTroponin results in patients taking biotin who exhibit renal impairment (eGFR <60) or in patients taking more than 20 mg/day of biotin. Anahi Brantley DO LAB BLOOD ORDERAB LES Performing Organization Address [facility] Co de Phone Number [facility] [address] [place] [address], * ECG 12 lead (02/22/2024 7:26 PM EST) Ventricular Rate ECG 94 BPM [facility] Atrial Rate 94 BPM [facility] P-R Interval 136 ms G[facility] QRS Duration 88 ms G[facility] Q-T Interval 362 ms GEMUSE QTc 452 ms GEMUSE P Wave Chestnut 40 degrees GEMUSE R Chestnut -14 degrees GEMUSE T Chestnut 18 degrees GEMUSE ECG Interpretation Normal sinus rhythm Minimal voltage criteria for LVH, may be normal variant Borderline ECG No previous ECGs available Confirmed by ART AGUILAR ([id number]) on 02/23/2024 5:11:34 PM [facility] 02/22/2024 7:26 PM EST 02/23/2024 5:11 PM EST Anahi Brantley DO ECG ORDERABLES Performing Organization Address [facility] Co de Phone Number [facility] * ECG-Annotated (02/22/2024) Provider Onmyra WARD ECG ORDERABLES documented in this encounter Visit Diagnoses Diagnosis Pulmonary embolism (CMS/HCC)- Primary Other pulmonary embolism and infarction Acute hypoxic respiratory failure (CMS/HCC) Multiple subsegmental pulmonary emboli without acute cor pulmonale (CMS/HCC) Dyspnea on exertion Other dyspnea and respiratory abnormality Pneumonia of left lower lobe due to infectious organism Localized swelling of both lower extremities documented in this encounter Admitting Diagnoses Diagnosis Pulmonary embolism (CMS/HCC) Other pulmonary embolism and infarction documented in this encounter Administered Medications Inactive Administered Medications - up to 3 most recent administrations Medication Order MAR Action Action Date Dose Rate Site acetaminophen (TYLENOL) tablet 650 mg 650 mg, oral, Every 4 hours PRN, mild pain, headaches, fever - temperature GREATER than 38 C (100.4 F), Starting on Mon02/23/24 at 0633 Given 02/23/2024 6:56 PM EST 650 mg Given 02/23/2024 12:37 PM EST 650 mg aspirin EC tablet 81 mg 81 mg, oral, Daily, First dose on Mon02/23/24 at 0900, Do not crush, chew, or split. Given 02/24/2024 8:00 AM EST 81 mg Given 02/23/2024 9:19 AM EST 81 mg cefTRIAXone (ROCEPHIN) 1 g in sterile water 10 mL IV syringe 1 g, intravenous, at 200 mL/hr, Administer over 3 Minutes, Once, On Mon02/23/24 at 0514, For 1 dose, Do not administer simultaneously with any calcium containing solutions via a Y-site in any patient., Indication: Pneumonia, Community Acquired Given 02/23/2024 5:47 AM EST 1 g 200 mL/hr dextromethorphan-guaiFENes in (ROBITUSSIN-DM) 10-100 mg/5 mL syrup 10 mL 10 mL, oral, Every 6 hours scheduled, First dose on Mon02/24/24 at 1045 Given 02/24/2024 11:13 AM EST 10 mL doxycycline (VIBRAMYCIN) 100 mg in sodium chloride 0.9 % 100 mL IVPB 100 mg, intravenous, at 100 mL/hr, Administer over 60 Minutes, Once, On Mon02/23/24 at 0514, For 1 dose, Indication: Pneumonia, Community Acquired New Bag 02/23/2024 5:47 AM EST 100 mg 100 mL/hr enoxaparin (LOVENOX) injection 120 mg 120 mg (rounded from 127 mg = 1 mg/kg ? 127 kg), subcutaneous, Once, On Mon02/23/24 at 0514, For 1 dose, Indication: VTE/PE Treatment Given 02/23/2024 5:47 AM EST 120 mg Left Upper Abdomen FLUoxetine (PROzac) capsule 40 mg 40 mg, oral, Daily, First dose on Mon02/23/24 at 0902 Given 02/24/2024 8:00 AM EST 40 mg Given 02/23/2024 9:18 AM EST 40 mg folic acid (FOLVITE) tablet 1 mg 1 mg, oral, Daily, First dose on Mon02/23/24 at 0900 Given 02/24/2024 8:00 AM EST 1 mg Given 02/23/2024 9:19 AM EST 1 mg furosemide (LASIX) injection 40 mg 40 mg, intravenous, Once, On Mon02/23/24 at 0027, For 1 dose Given 02/23/2024 12:32 AM EST 40 mg furosemide (LASIX) tablet 40 mg 40 mg, oral, Daily, First dose on 02/24/24 at 1045 Given 02/24/2024 11:13 AM EST 40 mg guaiFENesin-codeine (ROBITUSSIN-AC) 100-10 mg/5 mL syrup 10 mL 10 mL, oral, Once, On Mon02/23/24 at 0027, For 1 dose Given 02/23/2024 12:44 AM EST 10 mL iopamidoL (ISOVUE-370) 370 mg iodine /mL (76 %) injection 90 mL 90 mL, intravenous, Once in imaging, Starting on Mon02/23/24 at 0421, For 1 dose Given 02/23/2024 4:21 AM EST 84 mL ipratropium-albuteroL (DUONEB) 0.5-2.5 mg/3 mL nebulizer solution 3 mL 3 mL, nebulization, Once, On Mon02/23/24 at 0317, For 1 dose Given 02/23/2024 3:24 AM EST 3 mL ipratropium-albuteroL (DUONEB) 0.5-2.5 mg/3 mL nebulizer solution 3 mL 3 mL, nebulization, 4 times daily, First dose (after last modification) on 02/24/24 at 1045 Given 02/24/2024 11:07 AM EST 3 mL methylPREDNISolone sodium succ (SOLU-Medrol) injection 40 mg 40 mg, intravenous, Once, On 02/24/24 at 1045, For 1 dose, Reconstitute each 40 mg vial with 1 mL sterile water for injection to a concentration of 40 mg/mL. Given 02/24/2024 11:13 AM EST 40 mg morphine injection 4 mg 4 mg, intravenous, Once, On Mon02/23/24 at 0610, For 1 dose Given 02/23/2024 6:19 AM EST 4 mg ondansetron (PF) (ZOFRAN) injection 4 mg 4 mg, intravenous, Every 8 hours PRN, vomiting, nausea, Starting on Mon02/23/24 at 0633, -ONLY give IV if patient is unable to take orally. -If inadequate response within 30 minutes, proceed to next-line agent or contact provider if no further options ordered. ondansetron ODT (ZOFRAN-ODT) disintegrating tablet 4 mg 4 mg, oral, Every 8 hours PRN, vomiting, nausea, Starting on Mon02/23/24 at 0633, -Give IV if patient is unable to take orally. -If inadequate response within 30 minutes, proceed to next-line agent or contact provider if no further options ordered. For ODT tablets: -Do not remove from blister pack until just before administering. -Patient should allow tablet to dissolve on tongue. oxyCODONE (ROXICODONE) immediate release tablet 5 mg 5 mg, oral, Every 6 hours PRN, moderate pain, Starting on Mon02/23/24 at 1648 Given 02/24/2024 8:00 AM EST 5 mg Given 02/23/2024 5:00 PM EST 5 mg prochlorperazine (COMPAZINE) injection 10 mg 10 mg, intravenous, Every 6 hours PRN, nausea, vomiting, Starting on Mon02/23/24 at 0633, 2nd Line Option: -ONLY give IV if patient is unable to take orally. -Give IM if patient does not have IV Access -If inadequate response within 30 minutes, proceed to next-line agent or contact provider if no further options ordered. prochlorperazine (COMPAZINE) suppository 25 mg 25 mg, rectal, Every 12 hours PRN, nausea, vomiting, Starting on Mon02/23/24 at 0633, 2nd Line Option: -ONLY give IN if patient is unable to take orally and cannot receive IV/IM. -If inadequate response within 30 minutes, proceed to next-line agent or contact provider if no further options ordered. prochlorperazine (COMPAZINE) tablet 10 mg 10 mg, oral, Every 6 hours PRN, nausea, vomiting, Starting on Mon02/23/24 at 0633, 2nd Line Option: -Give IV or IM if patient is unable to take orally. -If inadequate response within 30 minutes, proceed to next-line agent or contact provider if no further options ordered. rivaroxaban (XARELTO) tablet 15 mg 15 mg, oral, 2 times daily with meals, First dose on Mon02/23/24 at 0800, Best administered with food or immediately before tube feedings. If ordered via NG or G-tube route, crush and mix with 50 mL water; give within 4 hours of mixing., Indication: VTE/PE Treatment Given 02/24/2024 8:01 AM EST 15 mg Given 02/23/2024 4:52 PM EST 15 mg Given 02/23/2024 9:19 AM EST 15 mg sodium chloride 0.9 % flush 10 mL 10 mL, intravenous, Once, On Mon02/23/24 at 0422, For 1 dose Given 02/23/2024 4:21 AM EST 10 mL sodium chloride 0.9 % flush 10 mL 10 mL, intravenous, 2 times daily, First dose on Mon02/23/24 at 0900 Given 02/24/2024 8:01 AM EST 10 mL Given 02/23/2024 8:38 PM EST 10 mL Given 02/23/2024 9:21 AM EST 10 mL sodium chloride 0.9 % flush 10 mL 10 mL, intravenous, As needed, line care, Starting on Mon02/23/24 at 0633 documented in this encounter Discontinued Medications Medication Sig Discontinue Reason Start Date End Da te atorvastatin (LIPITOR) 20 mg tablet Take 1 tablet (20 mg total) by mouth 1 (one) time each day. 02/26/2021 02/23/2024 buPROPion SR (WELLBUTRIN SR) 200 mg 12 hr tablet Take 1 tablet (200 mg total) by mouth 2 (two) times a day. 05/21/2021 02/23/2024 cholecalciferol (VITAMIN D-3) 125 mcg (5,000 unit) capsule Take 1 capsule (5,000 Units total) by mouth 1 (one) time each day. 02/23/2024 colestipoL (COLESTID) 1 gram tablet Take 1 tablet (1 g total) by mouth 1 (one) time each day. 06/15/2022 02/23/2024 fluticasone HFA (FLOVENT HFA) 110 mcg/actuation inhaler Inhale 1 Puff into the lungs 2 times daily. 05/12/2021 02/23/2024 fluticasone propionate (FLONASE) 50 mcg/actuation nasal spray Use 2 spray per nostril daily. 05/22/2020 02/23/2024 ketotifen fumarate (ZADITOR) 0.035 % ophthalmic solution Place 1 Drop into both eyes 2 times daily for 10 days. 06/06/2017 02/23/2024 losartan-hydroCHLOROthia zide (HYZAAR) 100-25 mg per tablet Take 1 tablet by mouth 1 (one) time each day. 02/23/2024 SPIRONOLACTONE ORAL Take by mouth 2 times daily. 02/23/2024 dextromethorphan-guaiFEN esin (ROBITUSSIN-DM) 10-100 mg/5 mL syrup Take 10 mL by mouth every 6 (six) hours for 10 days. 02/24/2024 02/24/2024 rivaroxaban (XARELTO) starter pack Take 1 tablet (15 mg) by mouth 2 (two) times a day with meals for 21 days. Then take 1 tablet (20 mg) by mouth 1 (one) time each day with dinner. 02/24/2024 02/24/2024 documented as of this encounter Historical Medications * This list may reflect changes made after this encounter. Medication Sig Dispensed Refills Start Date End Date FLUoxetine (PROzac) 40 mg capsule Take 1 capsule (40 mg total) by mouth 1 (one) time each day. ipratropium-albuteroL (DUONEB) 0.5-2.5 mg/3 mL nebulizer solution Take 3 mL by nebulization 4 (four) times a day if needed for wheezing. folic acid (FOLVITE) 1 mg tablet Take 1 tablet (1 mg total) by mouth 1 (one) time each day. added in this encounter Active and Recently Administered Medications Times are shown in EST. Scheduled Medication Order 02/22/2024 02/23/2024 02/24/2024 aspirin EC tablet 81 mg 81 mg, oral, Daily, First dose on Mon02/23/24 at 0900, Do not crush, chew, or split. 0919 (Given - Provider: Manny Herrera RN) 0800 (Given - Provider: Wilmer Marina, PONCHO) cefTRIAXone (ROCEPHIN) 1 g in sterile water 10 mL IV syringe (COMPLETED) 1 g, intravenous, at 200 mL/hr, Administer over 3 Minutes, Once, On Mon02/23/24 at 0514, For 1 dose, Do not administer simultaneously with any calcium containing solutions via a Y-site in any patient., Indication: Pneumonia, Community Acquired 0547 (Given - Provider: Asha Hairston RN) dextromethorphan-guaiFENesi n (ROBITUSSIN-DM) 10-100 mg/5 mL syrup 10 mL 10 mL, oral, Every 6 hours scheduled, First dose on Mon02/24/24 at 1045 1113 (Given - Provid er: Wilmer Marina RN) doxycycline (VIBRAMYCIN) 100 mg in sodium chloride 0.9 % 100 mL IVPB (COMPLETED) 100 mg, intravenous, at 100 mL/hr, Administer over 60 Minutes, Once, On Mon02/23/24 at 0514, For 1 dose, Indication: Pneumonia, Community Acquired 0547 (New Bag - Provider: Asha Hairston RN)0700 (Stopped - Provider: Manny Herrera RN) enoxaparin (LOVENOX) injection 120 mg (COMPLETED) 120 mg (rounded from 127 mg = 1 mg/kg ? 127 kg), subcutaneous, Once, On Mon02/23/24 at 0514, For 1 dose, Indication: VTE/PE Treatment 0547 (Given - Provider: Asha Hairston RN) FLUoxetine (PROzac) capsule 40 mg 40 mg, oral, Daily, First dose on Mon02/23/24 at 0902 0918 (Given - Provider: Manny Herrera RN) 0800 (Given - Provider: Wilmer Marina, PONCHO) folic acid (FOLVITE) tablet 1 mg 1 mg, oral, Daily, First dose on Mon02/23/24 at 0900 0919 (Given - Provider: Manny Herrera RN) 0800 (Given - Provider: Wilmer Marina, PONCHO) furosemide (LASIX) injection 40 mg (COMPLETED) 40 mg, intravenous, Once, On Mon02/23/24 at 0027, For 1 dose 0032 (Given - Provider: Asha Hairston RN) furosemide (LASIX) tablet 40 mg 40 mg, oral, Daily, First dose on 02/24/24 at 1045 1113 (Given - Provid er: Wilmer Marina RN) guaiFENesin-codeine (ROBITUSSIN-AC) 100-10 mg/5 mL syrup 10 mL (COMPLETED) 10 mL, oral, Once, On Mon02/23/24 at 0027, For 1 dose 0044 (Given - Provider: Asha Hairston RN) iopamidoL (ISOVUE-370) 370 mg iodine /mL (76 %) injection 90 mL (COMPLETED) 90 mL, intravenous, Once in imaging, Starting on Mon02/23/24 at 0421, For 1 dose 0421 (Given - Provider: Joanna Ceballos) ipratropium-albuteroL (DUONEB) 0.5-2.5 mg/3 mL nebulizer solution 3 mL (COMPLETED) 3 mL, nebulization, Once, On Mon02/23/24 at 0317, For 1 dose 0324 (Given - Provider: Asha Hairston RN) ipratropium-albuteroL (DUONEB) 0.5-2.5 mg/3 mL nebulizer solution 3 mL 3 mL, nebulization, 4 times daily, First dose (after last modification) on 02/24/24 at 1045 1107 (Given - Provid er: Karen Gramajo)1600 (Canceled Entry - Provider: Automatic Discharge Provider - Comment: Automatically canceled at discontinue of medication order) methylPREDNISolone sodium succ (SOLU-Medrol) injection 40 mg (COMPLETED) 40 mg, intravenous, Once, On 02/24/24 at 1045, For 1 dose, Reconstitute each 40 mg vial with 1 mL sterile water for injection to a concentration of 40 mg/mL. 1113 (Given - Provid er: Wilmer Marina RN) morphine injection 4 mg (COMPLETED) 4 mg, intravenous, Once, On Mon02/23/24 at 0610, For 1 dose 0619 (Given - Provider: Asha Hairston RN) rivaroxaban (XARELTO) tablet 15 mg 15 mg, oral, 2 times daily with meals, First dose on Mon02/23/24 at 0800, Best administered with food or immediately before tube feedings. If ordered via NG or G-tube route, crush and mix with 50 mL water; give within 4 hours of mixing., Indication: VTE/PE Treatment 0919 (Given - Provider: Manny Herrera, PONCHO)1652 (Given - Provider: Wilmer Marina, PONCHO) 0801 (Given - Provider: Wilmer Marina RN)1700 (Canceled Entry - Provider: Automatic Discharge Provider - Comment: Automatically canceled at discontinue of medication order) sodium chloride 0.9 % flush 10 mL (COMPLETED) 10 mL, intravenous, Once, On Mon02/23/24 at 0422, For 1 dose 0421 (Given - Provider: Chastity Wilder) sodium chloride 0.9 % flush 10 mL(Linked Group 1) 10 mL, intravenous, 2 times daily, First dose on Mon02/23/24 at 0900 0921 (Given - Provider: Manny Herrera RN)2038 (Given - Provider: Jael Rodriguez RN) 0801 (Given - Provider: Wilmer Marina RN) PRN Medication Order 02/22/2024 02/23/2024 02/24/2024 acetaminophen (TYLENOL) tablet 650 mg 650 mg, oral, Every 4 hours PRN, mild pain, headaches, fever - temperature GREATER than 38 C (100.4 F), Starting on Mon02/23/24 at 0633 1237 (Given - Provider: Debby Still RN)1856 (Given - Provider: Wilmer Marina RN) diazePAM (VALIUM) tablet 5 mg 5 mg, oral, Every 8 hours PRN, muscle spasms, Starting on Mon02/23/24 at 0851 ondansetron (PF) (ZOFRAN) injection 4 mg(Linked Group 2) 4 mg, intravenous, Every 8 hours PRN, vomiting, nausea, Starting on Mon02/23/24 at 0633, -ONLY give IV if patient is unable to take orally. -If inadequate response within 30 minutes, proceed to next-line agent or contact provider if no further options ordered. ondansetron ODT (ZOFRAN-ODT) disintegrating tablet 4 mg(Linked Group 2) 4 mg, oral, Every 8 hours PRN, vomiting, nausea, Starting on Mon02/23/24 at 0633, -Give IV if patient is unable to take orally. -If inadequate response within 30 minutes, proceed to next-line agent or contact provider if no further options ordered. For ODT tablets: -Do not remove from blister pack until just before administering. -Patient should allow tablet to dissolve on tongue. oxyCODONE (ROXICODONE) immediate release tablet 5 mg 5 mg, oral, Every 6 hours PRN, moderate pain, Starting on Mon02/23/24 at 1648 1700 (Given - Provider: Wilmer Marina, RN) 0800 (Given - Provider: Wilmer Marina, PONCHO) prochlorperazine (COMPAZINE) injection 10 mg(Linked Group 3) 10 mg, intravenous, Every 6 hours PRN, nausea, vomiting, Starting on Mon02/23/24 at 0633, 2nd Line Option: -ONLY give IV if patient is unable to take orally. -Give IM if patient does not have IV Access -If inadequate response within 30 minutes, proceed to next-line agent or contact provider if no further options ordered. prochlorperazine (COMPAZINE) suppository 25 mg(Linked Group 3) 25 mg, rectal, Every 12 hours PRN, nausea, vomiting, Starting on Mon02/23/24 at 0633, 2nd Line Option: -ONLY give IN if patient is unable to take orally and cannot receive IV/IM. -If inadequate response within 30 minutes, proceed to next-line agent or contact provider if no further options ordered. prochlorperazine (COMPAZINE) tablet 10 mg(Linked Group 3) 10 mg, oral, Every 6 hours PRN, nausea, vomiting, Starting on Mon02/23/24 at 0633, 2nd Line Option: -Give IV or IM if patient is unable to take orally. -If inadequate response within 30 minutes, proceed to next-line agent or contact provider if no further options ordered. sodium chloride 0.9 % flush 10 mL(Linked Group 1) 10 mL, intravenous, As needed, line care, Starting on Mon02/23/24 at 0633 Linked Groups Order Group 1: Insert peripheral IV (CANCELED) STAT, Once, On Mon02/23/24 at 0634, For 1 occurrence And Maintain IV access (CANCELED) Until discontinued, Starting on Mon02/23/24 at 0634, Until Specified And Saline lock IV (CANCELED) Routine, Once, On Mon02/23/24 at 0634, For 1 occurrence And sodium chloride 0.9 % flush 10 mLJump to med 10 mL, intravenous, 2 times daily, First dose on Mon02/23/24 at 0900 And sodium chloride 0.9 % flush 10 mLJump to med 10 mL, intravenous, As needed, line care, Starting on Mon02/23/24 at 0633 Group 2: ondansetron ODT (ZOFRAN-ODT) disintegrating tablet 4 mgJump to med 4 mg, oral, Every 8 hours PRN, vomiting, nausea, Starting on Mon02/23/24 at 0633, -Give IV if patient is unable to take orally. -If inadequate response within 30 minutes, proceed to next-line agent or contact provider if no further options ordered. For ODT tablets: -Do not remove from blister pack until just before administering. -Patient should allow tablet to dissolve on tongue. Or ondansetron (PF) (ZOFRAN) injection 4 mgJump to med 4 mg, intravenous, Every 8 hours PRN, vomiting, nausea, Starting on Mon02/23/24 at 0633, -ONLY give IV if patient is unable to take orally. -If inadequate response within 30 minutes, proceed to next-line agent or contact provider if no further options ordered. Group 3: prochlorperazine (COMPAZINE) tablet 10 mgJump to med 10 mg, oral, Every 6 hours PRN, nausea, vomiting, Starting on Mon02/23/24 at 0633, 2nd Line Option: -Give IV or IM if patient is unable to take orally. -If inadequate response within 30 minutes, proceed to next-line agent or contact provider if no further options ordered. Or prochlorperazine (COMPAZINE) injection 10 mgJump to med 10 mg, intravenous, Every 6 hours PRN, nausea, vomiting, Starting on Mon02/23/24 at 0633, 2nd Line Option: -ONLY give IV if patient is unable to take orally. -Give IM if patient does not have IV Access -If inadequate response within 30 minutes, proceed to next-line agent or contact provider if no further options ordered. Or prochlorperazine (COMPAZINE) suppository 25 mgJump to med 25 mg, rectal, Every 12 hours PRN, nausea, vomiting, Starting on Mon02/23/24 at 0633, 2nd Line Option: -ONLY give IN if patient is unable to take orally and cannot receive IV/IM. -If inadequate response within 30 minutes, proceed to next-line agent or contact provider if no further options ordered. documented in this encounter Orders Medications Ordered That Christos ht Not Have Been Administered Count Last Ordered Date First Ordered Date diazePAM (VALIUM) tablet 5 mg 1 02/23/2024 ipratropium-albuteroL (DUONE B) 0.5-2.5 mg/3 mL nebulizer solution 3 mL 1 02/23/2024 ondansetron (PF) (ZOFRAN) injection 4 mg 1 02/23/2024 ondansetron ODT (ZOFRAN-ODT) disintegrating tablet 4 mg 1 02/23/2024 prochlorperazine (COMPAZINE) injection 10 mg 1 02/23/2024 prochlorperazine (COMPAZINE) suppository 25 mg 1 02/23/2024 prochlorperazine (COMPAZINE) tablet 10 mg 1 02/23/2024 sodium chloride 0.9 % flush 10 mL 1 025 Admission Count Last Ordered Date First Orde red Date INITIATE OBSERVATION STATUS 1 02/23/2024 Transfer Count Last Ordered Date First Orde red Date ED TO FLOOR BED REQUEST 1 02/23/2024 Discharge Count Last Ordered Date First Orde red Date DISCHARGE PATIENT 1 02/24/2024 CORE MEASURES Count Last Ordered Date First Ord ered Date REASON FOR NO VTE PROPHYLAXI S - HOSPITAL ADMISSION - MEDICATIONS 1 02/23/2024 documented in this encounter Additional Health Concerns Infection Onset Date Last Indicated Resolved Time Respiratory Rule-Out 02/22/2024 02/23/2024 025 1:45 AM EST COVID-19 Rule-Out 02/22/2024 02/23/2024 02/23/2024 1:45 AM EST documented as of this encounter Care Teams Poultry Hanger Relationship Specialty Start Date End Date Lynne Jean MD PCP - General Internal Medicine 02/14/24 02/28/24 documented as of this encounter
== END 2024-03-05 15:36 | disposition home or self-care (01) ==
PROVIDERS: PCP Internal Medicine; Visit Provider Internal Medicine
DX: I26.94 Multiple subsegmental thrombotic pulmonary emboli without acute cor pulmonale (principal); Z09 Encounter for follow-up examination after completed treatment for conditions other than malignant neoplasm

== ENCOUNTER → 2024-03-05 14:26 | Outpatient (BNVA) | payer OTHER, SELFPAY | PROVIDERS: PCP Internal Medicine; Visit Provider Internal Medicine | DX: Z09 Encounter for follow-up examination after completed treatment for conditions other than malignant neoplasm (principal); I26.94 Multiple subsegmental thrombotic pulmonary emboli without acute cor pulmonale; J45.909 Unspecified asthma, uncomplicated | CPT/HCPCS: 96127 ==

== ENCOUNTER → 2024-03-14 09:05 | Outpatient (BNV) | payer OTHER, SELFPAY | PROVIDERS: PCP Internal Medicine; Visit Provider Nurse Practitioner Family | DX: C50.911 Malignant neoplasm of unspecified site of right female breast (principal) | CPT/HCPCS: 99204 ==

== ENCOUNTER → 2024-03-14 10:33 | Outpatient (BNVA) | payer OTHER, SELFPAY | PROVIDERS: PCP Internal Medicine; Referring Provider Internal Medicine; Visit Provider Hospitalist ==

== ENCOUNTER 2024-04-05 14:10 | Outpatient (AMB) | payer OTHER, SELFPAY ==
[2024-04-05 14:19] VITALS: BP 134/80; PULSE 82
--- NOTE | 2024-04-05 14:19 | MHC.OFFVIS ---
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 Not to be taken within 6 hours of valium 30 days aspirin 81 mg PO DAILY bupropion HCl SR (Wellbutrin SR) 200 mg PO DAILY cyanocobalamin (vitamin B-12) 1,000 mcg subcut Q4W 12 weeks dextromethorphan-guaifenesin 10-100 mg/5 mL 10 mL PO Q4-6H PRN diazepam (Valium) 5 mg PO BID PRN fluoxetine 40 mg PO DAILY fluticasone propion-salmeterol 500-50 mcg/dose (Wixela Inhub) 1 inh inhalation BID 30 days folic acid 1 mg PO DAILY furosemide 20 mg PO Q OTHER DAY ipratropium bromide 17 mcg/actuation 1 puff inhalation QID ipratropium-albuterol 0.5 mg-3 mg(2.5 mg base)/3 mL 3 mL inhalation Q8H PRN metoprolol succinate ER 12.5 mg (1/2 x 25 mg) PO DAILY norethindrone (contraceptive) 0.35 mg PO DAILY ondansetron 4 mg PO Q8H PRN oxycodone 5 mg PO Q6H PRN 28 days pregabalin (Lyrica) 75 mg PO BID rivaroxaban (Xarelto) 20 mg PO QPM 30 days spironolactone 25 mg PO QAM syringe with needle (BD SafetyGlide Syringe) Use for b12 injection subcutaneous once weekly HPI 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 She was started on Xarelto. She was referred to Hematology for a hypercoagulable workup. From there she was referred to Cardiology due to symptoms of shortness of breath, chest discomfort and leg edema. Today she reports that she started her increased shortness of breath and URI symptoms in early January. She started on steroids and antibiotics. Her symptoms persisted for a few weeks and when she did not improve she presented to [facility] for evaluation. She was found to have pulmonary embolism. She tells me she was getting episodes of random chest pains for the last few years. She was seen briefly by [facility] Cardiology but states she never had a stress test or echocardiogram. She has asthma but states that it has been mostly controlled and that this shortness of breath is different. She does have periodic coughing, no hemoptysis. No PND, orthopnea. She has had leg edema which is improved since starting Lasix. She actually reduced her diuretic dose down as she was having low blood pressures. She says since her hospital discharge she has not been taking her usual losartan/hydrochlorothiazide consistently. She states she is taking it only 4 times in the last 6 weeks. She also has been taking only 1 dose of spironolactone daily. Her Lasix is down to 20 mg every other day. She is very compliant with the Xarelto and she continues on aspirin. She has no prior history of clotting issues. She tells me 1 of her clotting tests did come back positive. She will feel lightheaded at times but has never fainted. She will feel occasional heart palpitations but this is not a primary issue for her. She brings an EKG from [facility] which shows normal sinus rhythm, LVH, rate 94. She is currently out of work due to her shortness of breath. 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 She does not do any routine exercise. Her father had history of peripheral vascular disease and he age 63. Her mother has history of coronary stent in her early 60s. She is a prior smoker. She has not drink alcoholic beverages. She says she is being evaluated for Eveline's disease through endocrinology at [facility]. She had elevated blood pressure readings in the past with positive metanephrines. She went to [place] for testing to evaluate for pheochromocytoma which she says was negative. Her mother is present at this visit. [facility] Medical History Pneumonia Asthma Vitamin D deficiency Right shoulder pain Non-infective diarrhea Mixed anxiety and depressive disorder Mild persistent asthma Hyperlipidemia Headache Cyst of nasopharynx Cobalamin deficiency Cervical radiculopathy Cerebral arterial aneurysm Body mass index 40.0-44.9, adult ADHD Family History Other FH: mental illness Social History Household Members: Family Housing: House Alcohol intake: former Patient Tobacco Use Status: Former Tobacco user Cigarette Packs Per Day: 1 Years Smoked: 5 e-Cigarette/Vaping Use: Never Used Current occupational status: employed 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 Current occupational exposures/hazards: No Gender identity: Female Cognitive needs: No Hearing needs: No Vision needs: No Review of Systems Const All systems reviewed & are unremarkable except as noted in HPI and below ENT Reports dizziness Card Reports chest pain, Reports chest pain at rest, Reports chest pain with activity, Denies rapid heart rate, Denies pedal edema, Denies edema, Reports leg edema, Denies lightheadedness, Denies palpitations, Reports dyspnea, Reports dyspnea on exertion and Denies orthopnea Resp Denies cough, Reports dyspnea and Reports dyspnea on exertion GI Denies hematochezia and Denies change in stool character Musc Denies abnormal gait, Denies limited range of motion, Denies muscle cramps, Denies muscle weakness, Denies numbness, Denies radiating pain into limb, Denies stiffness and Denies tingling Neuro Denies abnormal gait, Reports dizziness, Denies numbness and Denies tingling Endo Denies palpitations Physical Exam Vital Signs: Last Vital Signs Pulse 82 04/05/24 14:19 BP 134/80 04/05/24 14:19 Const General: cooperative, healthy appearing, comfortable and no acute distress Orientation/consciousness: patient oriented x3 Neck Neck: Yes normal visual inspection Resp Effort & Inspection: normal respiratory effort Auscultation: clear to auscultation bilaterally, no rales, no rhonchi and no wheezes Cardio Rate: regular rate Rhythm: regular rhythm Heart sounds: S1 normal heart sound present, S2 normal heart sound present, no murmurs and no rubs Neuro General: patient oriented x3 Extrem General: Yes normal to inspection, No no pedal edema and No calf tenderness Psych Appearance: grossly normal Mental Status: mental status grossly normal Speech and movement: Normal speech and movement present Assessment & Plan Assessment & Plan (1) Shortness of breath: Code(s): R06.02 - Shortness of breath Category: Medical Plan: Shortness of breath since early January, initially treated for URI without improvement then presented to [facility] on 02/22/2024 and testing showed pulmonary embolism. She was started on Xarelto for anticoagulation. EKG done that day shows normal sinus rhythm, minimal voltage criteria for LVH, rate 94. Echocardiogram was not done. Since that time she is still having shortness of breath and reports newer leg edema. She was started on Lasix in addition to her hydrochlorothiazide and Aldactone. On exam today she does not appear fluid overloaded. With her pulmonary embolism she needs to be evaluated for RV strain, right heart failure. Will check an echocardiogram in the next week and plan to call her with results. She does report chest discomfort which is sharp and occurs randomly. This may be pleuritic pain however she describes having pain like this in the months and years prior to her PE diagnosis. Going forward she will need a stress test however I will hold off at this time due to recent PE and ongoing shortness of breath. (2) Pulmonary embolism: Code(s): I26.99 - Other pulmonary embolism without acute cor pulmonale Category: Medical Qualifiers: Pulmonary embolism type: multiple subsegmental (without acute cor pulmonale) Qualified Code(s): I26.94 - Multiple subsegmental thrombotic pulmonary emboli without acute cor pulmonale Plan: Will reach out to [facility] to obtain records from this visit. (3) Asthma: Code(s): J45.909 - Unspecified asthma, uncomplicated Category: Medical Qualifiers: Asthma severity: moderate Asthma persistence: persistent Asthma complication type: uncomplicated Qualified Code(s): J45.40 - Moderate persistent asthma, uncomplicated Plan: Follows with Dr. Gramajo for pulmonology. (4) Chest discomfort: Code(s): R07.89 - Other chest pain Category: Medical Plan: Sharp pains as above, happening with and without activity, at times with coughing. (5) Edema: Code(s): R60.9 - Edema, unspecified Category: Medical Plan: Leg edema in recent weeks, none today. She is on Lasix and spironolactone. She tells me she has been taking the Lasix 20 mg every other day and the spironolactone only once daily. For her blood pressure she would normally be on losartan 100 mg/hydrochlorothiazide 25 mg daily but tells me when she takes it her blood pressure is low. She has not been taking it recently. She does have an phone visit with her PCP today and will discuss med management. Recommend starting low-dose losartan, and stopping hydrochlorothiazide. Blood pressure today 128/88, checked by me. (6) Hypertension: Code(s): I10 - Essential (primary) hypertension Category: Medical Qualifiers: Hypertension type: primary hypertension Qualified Code(s): I10 - Essential (primary) hypertension Plan: As above Plan Time spent on chart review, documentation, interview and assessment Orders: Orders CA echo transthoracic complete Today I26.94 - Multiple subsegmental thrombotic pulmonary emboli without acute cor pulmonale, R06.02 - Shortness of breath Coding Level of Care Code New Pt Level 4 (16336) Complex EM visit Add On G2211 Diagnoses Shortness of breath R06.02 Multiple subsegmental pulmonary emboli without acute cor pulmonale I26.94 Pulmonary embolism type: multiple subsegmental (without acute cor pulmonale) Moderate persistent asthma without complication J45.40 Asthma severity: moderate Asthma persistence: persistent Asthma complication type: uncomplicated Chest discomfort R07.89 Edema R60.9 Primary hypertension I10 Hypertension type: primary hypertension Time Spent (min) 36
--- OUTSIDE RECORDS SUMMARY | 2024-04-05 16:22 | XMS_ITS | Patient Health Record ---
Author Organization [facility] Address [address] [place] [address] Care Team Providers Care Rigger Up Name Role Phone Lynne Jean Primary Care [...] Orally flora ry 12hrs as needed Active Wlojmyncjk-BZSE-Chvlzeki 50-325-40 MG 1 tablet as needed Orally [...] Problem Status W/U Status Risk Notes Problem [id number] Equinus deformity of right foot (M21.6X1) Active confirmed Problem [id number] Equinus deformity of left foot (M21.6X2) Active [...] Date Coverage End Date [employer] [address] [address] [place] [address] [id number] Juan A Ferreira Self - patient is [...] ctomy and fusion 2006 Laparoscopy, cholecystectomy 08/17/16 [place] Breast Reduction 2000 Remove tonsils adenoids, under 12 Total disc Arthrp Ant Apw/Discectomy CRV 2017
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
== END 2024-04-05 15:33 | disposition home or self-care (01) ==
PROVIDERS: PCP Internal Medicine; Visit Provider Nurse Practitioner Family
DX: R06.02 Shortness of breath (principal); I26.94 Multiple subsegmental thrombotic pulmonary emboli without acute cor pulmonale; J45.40 Moderate persistent asthma, uncomplicated; R07.89 Other chest pain; R60.9 Edema, unspecified; I10 Essential (primary) hypertension
CPT/HCPCS: 99204; G2211

== ENCOUNTER 2024-04-05 14:49 | Outpatient (AMB) | payer OTHER, SELFPAY ==
--- NOTE | 2024-04-05 14:41 | MHC.PC.OV ---
Intake Visit Reasons: phone visit or 1/2 h in person Allergies omeprazole Allergy (Mild, Verified 04/05/24 14:24) Rash Sulfa (Sulfonamide Antibiotics) Allergy (Unknown, Verified 04/05/24 14:24) Rash tramadol Allergy (Unknown, Verified 04/05/24 14:24) Rash venlafaxine [From Effexor] Allergy (Unknown, Verified 04/05/24 14:24) Rash Medication List - Last Reconciled 04/06/24 by Lynne Jean MD albuterol sulfate 90 mcg/actuation 2 inhalations inhalation Q6H PRN albuterol sulfate 2.5 mg (3 mL) inhalation Q4-6H PRN alprazolam 1 mg orally every 12 hours PRN; anxiety. Not to be taken within 6 hours of valium 30 days aspirin 81 mg PO DAILY bupropion HCl SR (Wellbutrin SR) 200 mg PO DAILY cyanocobalamin (vitamin B-12) 1,000 mcg subcut Q4W 12 weeks dextromethorphan-guaifenesin 10-100 mg/5 mL 10 mL PO Q4-6H PRN diazepam (Valium) 5 mg PO BID PRN fluoxetine 40 mg PO DAILY fluticasone propion-salmeterol 500-50 mcg/dose (Wixela Inhub) 1 inh inhalation BID 30 days folic acid 1 mg PO DAILY furosemide 20 mg PO Q OTHER DAY ipratropium bromide 17 mcg/actuation 1 puff inhalation QID ipratropium-albuterol 0.5 mg-3 mg(2.5 mg base)/3 mL 3 mL inhalation Q8H PRN losartan 25 mg PO DAILY metoprolol succinate ER 12.5 mg (1/2 x 25 mg) PO DAILY norethindrone (contraceptive) 0.35 mg PO DAILY ondansetron 4 mg PO Q8H PRN oxycodone 5 mg PO Q6H PRN 28 days pregabalin (Lyrica) 75 mg PO BID rivaroxaban (Xarelto) 20 mg PO QPM 30 days spironolactone 25 mg PO QAM syringe with needle (BD SafetyGlide Syringe) Use for b12 injection subcutaneous once weekly Tobacco use date assessed: 03/05/24 Dental Screening Dental Screen Date: 08/25/23 HPI HPI Comments History of Present Illness Details This is a 48 year old female with a past medical history of hypertension, anxiety & depression, ddd cervical spine, cerebral aneurysm, PE, presenting for follow up Resp-Still short of breath. Unable to walk comfortably more than a couple feet. +wheezing. No fevers. Seeing pulm. [facility]-had CTA with PEs, bilateral lower lobe consolidations. Saw hematology. Echocardiogram next week. Saw cardiology today. MSK: bilateral upper extremity neuropathy. History of neck surgery. On oxycodone. Neck pain continues to be heightened. Has had elevated ESR-23, CRP 9.6. Cortisol and TSH were normal. Pain continues to be more than basline, better than outset. Cervical xray with postoperative changes anterior fusion hardware at C3-C4 and disc spacer at C4-C5. Partial fusion of C3 and C4 vertebral bodies. Unchanged approximately 0.3 cm anterolisthesis C4 on C5. Mild neuroforaminal narrowing at C4-C5 [id number]. Anxiety/Insomnia: stable on current medications Presented in Jan 2023 with hypertensive urgency, headaches, tachycardia and tremor. 24 urine with elevated metanephrines. Seen by endocrinology Dr Dockery and in neuroendocrine [facility]. Patient has imaging with adrenal thickening. Empty sella on MRI brain. Has had intermittent elevation in metanephrines. Symptoms and striae concerning for hypercortisolism but labs have not revealed such. She is to repeat labs in 3 months. She continues to have intermittent issues with headaches, vision changes, weakness, striae, skin ulceration, palpitations, anxiety, variable BP. -Family history of medullary thyroid cancer. 1st cousin. Family history (sister) MGUS, mast cell disorder ROS see HPI PHYSICAL EXAM: Telehealth [facility] Medical History Pneumonia Asthma Vitamin D deficiency Right shoulder pain Non-infective diarrhea Mixed anxiety and depressive disorder Mild persistent asthma Hyperlipidemia Headache Cyst of nasopharynx Cobalamin deficiency Cervical radiculopathy Cerebral arterial aneurysm Body mass index 40.0-44.9, adult ADHD Family History Other FH: mental illness Social History Household Members: Family Housing: House Alcohol intake: former Patient Tobacco Use Status: Former Tobacco user Cigarette Packs Per Day: 1 Years Smoked: 5 e-Cigarette/Vaping Use: Never Used Current occupational status: employed 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 Efren Gonzalez, Monet Delgadillo, Juan Goldsmith and colleagues, with an educational lonnie from [employer]. Physical exam (Primary Care) Tobacco/Smoking Status: Tobacco use Status Tobacco use date assessed 03/05/24 04/05/24 14:43 Patient Tobacco Use Status Former Tobacco user 04/05/24 14:43 e-Cigarette/Vaping Use Never Used 04/05/24 14:43 Thrive Assessment: Date of Thrive Assessment Date Thrive assessed 03/05/24 04/05/24 14:43 Telehealth Telehealth [facility]health [facility] Location of provider rendering services: practice address Location of patient: address on file Patient Identification confirmed using: Name, : Yes Telehealth method: voice only Patient verbally consented to treatment: Yes Patient verbally consented to billing insurance company: Yes Patient informed of any privacy concerns related to visit: Yes Minutes spent on Phone/Video with Pt.: 25 Coding Level of Care Code Tele Est Pt Level 3 (27845) Diagnoses Multiple subsegmental pulmonary emboli without acute cor pulmonale I26.94 Pulmonary embolism type: multiple subsegmental (without acute cor pulmonale) Primary hypertension I10 Hypertension type: primary hypertension Assessment & Plan Assessment & Plan (1) Pulmonary embolism: Code(s): I26.99 - Other pulmonary embolism without acute cor pulmonale Category: Medical Qualifiers: Pulmonary embolism type: multiple subsegmental (without acute cor pulmonale) Qualified Code(s): I26.94 - Multiple subsegmental thrombotic pulmonary emboli without acute cor pulmonale Plan: Still with significant shortness of breath. Completing cardiology work up. Not ready to return to job site due to significant shortness of breath. 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 Letter printed. (2) Hypertension: Code(s): I10 - Essential (primary) hypertension Category: Medical Qualifiers: Hypertension type: primary hypertension Qualified Code(s): I10 - Essential (primary) hypertension Plan: Restart ARB at lower dose (was on losartan hctz 100/25). Start losartan 25mg daily. Continue aldactone, qother day lasix. Continue cardiology follow up Medications: New losartan 25 mg PO DAILY 90 tabs 3RF Refilled alprazolam (2 x 0.5 mg) 1 mg orally every 12 hours PRN; anxiety. Not to be taken within 6 hours of valium 30 days 60 tabs 1RF anxiety
--- OUTSIDE RECORDS SUMMARY | 2024-04-05 16:59 | XMS_ITS | Encounter Summary ---
Author Organization [facility] Address [address] [place] [address] Care Team Providers Care Architectural Wood Model Maker Name Role Phone Eileen Aleman MD Primary Care Provider [facility], Pcp Primary Care Provider Lynne Seaman MD Primary Care Provider Suzi Anthony PA-C Unavailable Unavailable Venancio Brown MD Unavailable [phone] Encounter Details Date Type Department Care Team Description 04/22/2021 Pt. Non Urgent Medical Question Medicine/Pediatrics - [address] [id number] Eileen Aleman MD DDD (degenerative disc disease), cervical Social History Tobacco Use Types Packs/Day Years Used Date Smoking Tobacco: Former Cigarettes 1 0 02/06/1994 - 01/20/2006 Smokeless Tobacco: Never Alcohol Use Standard Drinks/Week Comments Yes 0 (1 standard drink = 0.6 oz pur e alcohol) rare Sex Assigned at Date Recorded Female 05/21/2020 9:47 PM E DT Job Start Date Occupation Industry Not on file Not on file Not on file documented as of this encounter Miscellaneous Notes * Telephone Encounter - Sophia Wakefield C.M.A - 04/23/2021 8:31 AM EDTFrom: Juan A Ferreira To: Darleen Aleman Sent: 04/22/2021 9:26 PM EDT Subject: Medication refill & quantity change Hi Dr. Aleman, I wanted to update you on the tapering of the oxycodone so you can change the quantity how you are fit, because I certainly do not need it 4 times a day. I have been doing the 7.5 mg as discussed at night and 1 during the day when absolutely needed (notwhile working) and not everyday- I t hink with the stress of school and home & of course looking down on my laptop at home studying isn???t helping. I have been doing the stretching and icing at home as much as I can, heat doesn???t seem to do much. I honestly can???t tell whether it is helpingor not - but it is not making it any worse. As for the Valium, I am still only doing the one at night and one during the day for several spasms which is every here and there. Also , I know we discussed the Wellbutrin in office but wanted you to have it on record that when Ihave my telehealth visit with Nazanin Johnson NP (for the adhd) on Monday, she did decrease it back to the 300 mg after all the weird symptoms I was feeling on the 450mg. I will see her every 2 weeks and I will keep you updated on any changes. Thank you!! Juan A documented in this encounter Plan of Treatment Not on file documented as of this encounter Visit Diagnoses Diagnosis DDD (degenerative disc disease), cervical Degeneration of cervical intervertebral disc documented in this encounter Care Teams Architectural Wood Model Maker Relationship Specialty Start Date End Date Eileen Aleman MD PCP - General Internal Medicine 05/04/20 09/14/21 [facility], Pcp PCP - General Internal Medicine 09/15/21 01/05/22 Lynne Ramos MD PCP - General Internal Medicine 01/06/22 Suzi Kelly PA-C Specialist Internal Medicine 01/06/22 Venancio Brown MD [address] [place] [address] Specialist Cardiovascular Disease 01/06/22 documented as of this encounter
--- OUTSIDE RECORDS SUMMARY | 2024-04-05 16:59 | XMS_ITS | Encounter Summary ---
Author Organization [facility] Address [address] [place] [address] Care Team Providers Care Marketing Performance Analyst Name Role Phone Lynne Ramos MD Primary Care Provider Eileen Diaz MD Primary Care Provider [facility], Pcp Primary Care Provider Lynen Seaman MD Primary Care Provider UnavailSuzi Guzman PA-C Unavailable Unavailable Venancio Brown MD Unavailable [phone] Encounter Details Date Type Department Care Team Description 08/08/2016 [facility] Controlled Substance Contract Medical Records [address] [place] [address] Abstract, Provider Social History Tobacco Use Types Packs/Day Years Used Date Smoking Tobacco: Former Smokeless Tobacco: Never Alcohol Use Standard Drinks/Week Comments Yes 0 (1 standard drink = 0.6 oz pur e alcohol) Sex Assigned at Date Recorded Female 05/21/2020 9:47 PM E DT Job Start Date Occupation Industry Not on file Not on file Not on file documented as of this encounter Plan of Treatment Not on file documented as of this encounter Visit Diagnoses Not on filedocumented in this encounter Care Teams Marketing Performance Analyst Relationship Specialty Start Date End Date Lynne Ramos MD PCP - General Internal Medicine 03/23/16 05/03/20 Eileen Aleman MD PCP - General Internal Medicine 05/04/20 09/14/21 [facility], Pcp PCP - General Internal Medicine 09/15/21 01/05/22 Lynne Ramos MD PCP - General Internal Medicine 01/06/22 Suzi Kelly PA-C Specialist Internal Medicine 01/06/22 Venancio Brown MD [address] [place] [address] Specialist Cardiovascular Disease 01/06/22 documented as of this encounter
--- OUTSIDE RECORDS SUMMARY | 2024-04-05 16:59 | XMS_ITS | Encounter Summary ---
Author Organization [facility] Address [address] [place] [address] Care Team Providers Care Interface Analyst Name Role Phone Eileen Aleman MD Primary Care Provider [facility], Pcp Primary Care Provider Lynne Seaman MD Primary Care Provider Suzi Anthony PA-C Unavailable Unavailable Venancio Brown MD Unavailable [phone] Encounter Details Date Type Department Care Team Description 08/19/2021 [facility] Medical Records [address] [place] [address] Abstract, Provider Social History Tobacco Use Types [...] file Not on file Not on file COVID-19 Exposure Response Date Recorded In the last 10 days, have yo u been in contact with someone who was confirmed or suspected to have Coronavirus/COVID-19? No / Unsure 08/10/2021 3:10 PM EDT documented as of this encounter Plan of Treatment Not on file documented as of this encounter Visit Diagnoses Not on filedocumented in this encounter Care Teams Interface Analyst Relationship Specialty Start Date End Date Eileen Aleman MD PCP - General Internal Medicine 05/04/20 09/14/21 [facility], Pcp PCP - General Internal Medicine 09/15/21 01/05/22 Lynne Ramos MD PCP - General Internal Medicine 01/06/22 Suzi Kelly PA-C Specialist Internal Medicine 01/06/22 Venancio Brown MD [address] [place] [address] Specialist Cardiovascular Disease 01/06/22 documented as of this encounter
--- OUTSIDE RECORDS SUMMARY | 2024-04-05 16:59 | XMS_ITS | Encounter Summary ---
Author Organization [facility] Address [address] [place] [address] Care Team Providers Care Machine Design Teacher Name Role Phone Eileen Aleman MD Primary Care Provider [facility], Pcp Primary Care Provider Lynne Seaman MD Primary Care Provider Suzi Anthony PA-C Unavailable Unavailable Venancio Brown MD Unavailable [phone] Reason for Visit * Reason Onset Date Comments refill request 06/28/2021 Encounter Details Date Type Department Care Team Description 06/28/2021 Telephone Medicine/Pediatrics - [address] [address] Eileen Aleman MD refill request Social History Tobacco Use Types Packs/Day Years [...] suspected to have Coronavirus/COVID-19? No / Unsure 06/23/2021 9:23 AM EDT documented as of this encounter Miscellaneous Notes * Telephone Encounter - Eileen Aleman MD - 06/28/2021 4:52 PM EDT Done. * Telephone Encounter - Deja Poon M.A. - 06/28/2021 1:23 PM EDT Last ov 05/17/2021 and 04/05/2021 Lab Results Component Value Date URBENZO POSITIVE 08/05/2019 UROPIATES NONE DETECTED 08/05/2019 UROXYCODONE POSITIVE 08/05/2019 URBARBITUATE NONE DETECTED 08/05/2019 PAINAMPHETAM NONE DETECTED 08/05/2019 PAINCOCAINE NONE DETECTED 08/05/2019 PAINCANNABIN NONE DETECTED 08/05/2019 Mass Pat printed and placed on provider desk for review. Last filled on 05/21/2021 documented in this encounter Plan of Treatment Not on file documented as of this encounter Visit Diagnoses Diagnosis DDD (degenerative disc disease), cervical Degeneration of cervical intervertebral disc documented in this encounter Care Teams Machine Design Teacher Relationship Specialty Start Date End Date Eileen Aleman MD PCP - General Internal Medicine 05/04/20 09/14/21 [facility] PCP - General Internal Medicine 09/15/21 01/05/22 Lynne Ramos MD PCP - General Internal Medicine 01/06/22 Suzi Kelly PA-C Specialist Internal Medicine 01/06/22 Venancio Brown MD [address] [place] [address] Specialist Cardiovascular Disease 01/06/22 documented as of this encounter
--- OUTSIDE RECORDS SUMMARY | 2024-04-05 16:59 | XMS_ITS | Encounter Summary ---
Author Organization [facility] Address [address] [place] [address] Care Team Providers Care Forestry And Wildlife Manager Name Role Phone Lynne Ramos MD Primary Care Provider Eileen Diaz MD Primary Care Provider [place] [facility] [facility], Pcp Primary Care Provider Lynne Seaman MD Primary Care Provider Suzi Anthony PA-C Unavailable Unavailable Venancio Brown MD Unavailable [phone] Encounter Details Date Type Department Care Team Description 08/13/2016 [facility] Medical Records [address] [place] [address] Mary Johnson MD [address] [place] [address] [address] [place] [address] Social History Tobacco Use Types Packs/Day Years [...] on filedocumented in this encounter Care Teams Forestry And Wildlife Manager Relationship Specialty Start Date End Date Lynne Ramos MD PCP - General Internal Medicine 03/23/16 05/03/20 Eileen Aleman MD PCP - General Internal Medicine 05/04/20 09/14/21 [facility] Pcp PCP - General Internal Medicine 09/15/21 01/05/22 Lynne Ramos MD PCP - General Internal Medicine 01/06/22 Suzi Kelly PA-C Specialist Internal Medicine 01/06/22 Venancio Brown MD [address] [place] [address] Specialist Cardiovascular Disease 01/06/22 documented as of this encounter
--- OUTSIDE RECORDS SUMMARY | 2024-04-05 16:59 | XMS_ITS | Encounter Summary ---
Author Organization [facility] Address [address] [place] [address] Care Team Providers Care Carpenter Refrigerator Name Role Phone Lynne Ramos MD Primary Care Provider Eileen Diaz MD Primary Care Provider [facility], Pcp Primary Care Provider Lynne Seaman MD Primary Care Provider Suzi Anthony PA-C Unavailable Unavailable Venancio Brown MD Unavailable [phone] Reason for Visit * Reason Onset Date Comments TEST RESULTS 05/13/2018 Medication Review 05/13/2018 Encounter Details Date Type Department Care Team Description 05/13/2018 Pt. Non Urgent Medical Question Adult Urgent Care - [address] [address] Miya Heller PA-C [address] [place] [address] Social History Tobacco Use Types Packs/Day Years [...] on file documented as of this encounter Progress Notes * Alejandra [place] M.A. - 05/14/2018 7:48 AM EDTFrom: Juan A Ferreira To: Miya Heller PA-C Sent: 05/13/2018 4:42 PM EDT Subject: Question regarding CHEST X-RAY, 2 VIEWS I have a question about CHEST X-RAY, 2 VIEWS resulted on 05/13/18, 4:18 PM. The Flovent is not covered. The alternatives they gave me were Qvar & asmanex. Thank you documented in this encounter Plan of Treatment Not on file documented as of this encounter Visit Diagnoses Not on filedocumented in this encounter Care Teams Carpenter Refrigerator Relationship Specialty Start Date End Date Lynne Ramos MD PCP - General Internal Medicine 03/23/16 05/03/20 Eileen Aleman MD PCP - General Internal Medicine 05/04/20 09/14/21 [facility], Pcp PCP - General Internal Medicine 09/15/21 01/05/22 Lynne Ramos MD PCP - General Internal Medicine 01/06/22 Suzi Kelly PA-C Specialist Internal Medicine 01/06/22 Venancio Brown MD [address] [place] [address] Specialist Cardiovascular Disease 01/06/22 documented as of this encounter
--- OUTSIDE RECORDS SUMMARY | 2024-04-05 16:59 | XMS_ITS | Encounter Summary ---
Author Organization [facility] Address [address] [place] [address] Care Team Providers Care Facilities Engineering Manager Name Role Phone Eileen Aleman MD Primary Care Provider [facility], Pcp Primary Care Provider Lynne Seaman MD Primary Care Provider Suzi Anthony PA-C Unavailable Unavailable Venancio Brown MD Unavailable [phone] Encounter Details Date Type Department Care Team Description 07/27/2021 Telephone [facility] [address] [place] [address] Edson Adam PA-C [address] [place] [address] Social History Tobacco Use Types Packs/Day Years [...] suspected to have Coronavirus/COVID-19? No / Unsure 07/27/2021 1:02 PM EDT documented as of this encounter Plan of Treatment Not on file documented as of this encounter Visit Diagnoses Not on filedocumented in this encounter Care Teams Facilities Engineering Manager Relationship Specialty Start Date End Date Eileen Aleman MD PCP - General Internal Medicine 05/04/20 09/14/21 [facility], Pcp PCP - General Internal Medicine 09/15/21 01/05/22 Lynne Ramos MD PCP - General Internal Medicine 01/06/22 Suzi Kelly PA-C Specialist Internal Medicine 01/06/22 Venancio Brown MD [address] [place] [address] Specialist Cardiovascular Disease 01/06/22 documented as of this encounter
--- OUTSIDE RECORDS SUMMARY | 2024-04-05 16:59 | XMS_ITS | Encounter Summary ---
Author Organization [facility] Address [address] [place] [address] Care Team Providers Care Field Attendant Name Role Phone Lynne Ramos MD Primary Care Provider Eileen Diaz MD Primary Care Provider [place] [facility], Pcp Primary Care Provider Lynne Seaman MD Primary Care Provider Suzi Anthony PA-C Unavailable Unavailable Venancio Brown MD Unavailable [phone] Encounter Details Date Type Department Care Team Description 03/23/2018 [facility] Medical Records [address] [place] [address] Abstract, Provider Social History Tobacco Use Types [...] on filedocumented in this encounter Care Teams Field Attendant Relationship Specialty Start Date End Date Lynne Ramos MD PCP - General Internal Medicine 03/23/16 05/03/20 Eileen Aleman MD PCP - General Internal Medicine 05/04/20 09/14/21 [facility], Pcp PCP - General Internal Medicine 09/15/21 01/05/22 Lynne Ramos MD PCP - General Internal Medicine 01/06/22 Suzi Kelly PA-C Specialist Internal Medicine 01/06/22 Venancio Brown MD [address] [place] [address] Specialist Cardiovascular Disease 01/06/22 documented as of this encounter
--- OUTSIDE RECORDS SUMMARY | 2024-04-05 16:59 | XMS_ITS | Encounter Summary ---
Author Organization [facility] Address [address] [place] [address] Care Team Providers Care Obstetrician/Gynecologist Name Role Phone Lynne Ramos MD Primary Care Provider Eileen Diaz MD Primary Care Provider [facility], Pcp Primary Care Provider Lynne Seaman MD Primary Care Provider Suzi Anthony PA-C Unavailable Unavailable Venancio Brown MD Unavailable [phone] Reason for Visit * Reason Onset Date Comments Call From Pharmacy 08/17/2016 Encounter Details Date Type Department Care Team Description 08/17/2016 Telephone General Surgery [address] [place] [address] Kadeem Matos MD [address] [place] [address] Call From Pharmacy Social History Tobacco Use Types Packs/Day Years [...] encounter Miscellaneous Notes * Telephone Encounter - Dena Ventura M.A. - 08/17/2016 3:41 PM EDT Called pharmacy informed to give colace only spoke to garrick . * Telephone Encounter - Kadeem Matos MD - 08/17/2016 3:34 PM EDT Colace alone is enough * Telephone Encounter - Dena Ventura M.A. - 08/17/2016 3:26 PM EDT Do you want both given to patient please review .routed to Dr.Frank WARD * Telephone Encounter - Alejandra Ferris - 08/17/2016 2:57 PM EDT Garrick from [facility] Pharmacy on [facility] in [place] called stating Dr Matso prescribed Colaceand Sennas. The Sennas has Colace in it. Pharmacist is asking which one does Dr Matos want to prescribe. Please call [phone] documented in this encounter Plan of Treatment Not on file documented as of this encounter Visit Diagnoses Not on filedocumented in this encounter Care Teams Obstetrician/Gynecologist Relationship Specialty Start Date End Date Lynne Ramos MD PCP - General Internal Medicine 03/23/16 05/03/20 Eileen Aleman MD PCP - General Internal Medicine 05/04/20 09/14/21 [facility], Pcp PCP - General Internal Medicine 09/15/21 01/05/22 Lynne Ramos MD PCP - General Internal Medicine 01/06/22 Suzi Kelly PA-C Specialist Internal Medicine 01/06/22 Venancio Brown MD [address] [place] [address] Specialist Cardiovascular Disease 01/06/22 documented as of this encounter
--- OUTSIDE RECORDS SUMMARY | 2024-04-05 16:59 | XMS_ITS | Encounter Summary ---
Author Organization [facility] Address [address] [place] [address] Care Team Providers Care Tax Associate Name Role Phone Lynne Ramos MD Primary Care Provider Eileen Diaz MD Primary Care Provider [facility], Pcp Primary Care Provider Lynne Seaman MD Primary Care Provider Suzi Anthony PA-C Unavailable Unavailable Venancio Brown MD Unavailable [phone] Reason for Visit * Reason Onset Date Comments refill request 02/25/2020 Encounter Details Date Type Department Care Team Description 02/25/2020 Telephone OBGYN - [place] [address] [place] [address] Ladan Copeland MD [address] [place] [address] refill request Social History Tobacco Use Types [...] encounter Miscellaneous Notes * Telephone Encounter - Chrystal Womack - 02/25/2020 9:33 AM EST WHEN WAS THE PATIENTS LAST ANNUAL PRINT OPERATOR EXAM? 10/31/2018 Does patient have an upcoming appointment? Yes 04/15/2020 (THE MEDICATION REQUESTED IS ON THE MED LIST ABOVE) Did you check the Pharmacy information above?: YES Indicate how soon the patient needs the script: SADA Patient would like script to be: E-PRESCRIBED/FAXED TO PHARMACY Is the doctor here today?: NO Can the message wait until the doctor returns?: NO Has the patient been told that the prescription will not be filled until the end of the day? NO Payor: [employer] / Plan: POS $20/30 RUPERTO MACIEL [id number] JENA TRADITNAL / Product Type: POS [id number] documented in this encounter Plan of Treatment Not on file documented as of this encounter Visit Diagnoses Not on filedocumented in this encounter Care Teams Tax Associate Relationship Specialty Start Date End Date Lynne Ramos MD PCP - General Internal Medicine 03/23/16 05/03/20 Eileen Aleman MD PCP - General Internal Medicine 05/04/20 09/14/21 [facility] PCP - General Internal Medicine 09/15/21 01/05/22 Lynne Ramos MD PCP - General Internal Medicine 01/06/22 Suzi Kelly PA-C Specialist Internal Medicine 01/06/22 Venancio Brown MD [address] [place] [address] Specialist Cardiovascular Disease 01/06/22 documented as of this encounter
--- OUTSIDE RECORDS SUMMARY | 2024-04-05 16:59 | XMS_ITS | Encounter Summary ---
Author Organization [facility] Address [address] [place] [address] Care Team Providers Care Seismic Prospecting Observer Helper Name Role Phone Lynne Ramos MD Primary Care Provider Eileen Diaz MD Primary [facility], [facility] Primary Care Provider Lynne Seaman MD Primary Care Provider Suzi Anthony PA-C Unavailable Unavailable Venancio Brown MD Unavailable [phone] Encounter Details Date Type Department Care Team Description 01/13/2020 [facility] Medical Records [address] [place] [address] Abstract, Provider Social History Tobacco Use Types [...] on filedocumented in this encounter Care Teams Seismic Prospecting Observer Helper Relationship Specialty Start Date End Date Lynne Ramos MD PCP - General Internal Medicine 03/23/16 05/03/20 Eileen Aleman MD PCP - General Internal Medicine 05/04/20 09/14/21 [facility] PCP - General Internal Medicine 09/15/21 01/05/22 Lynne Ramos MD PCP - General Internal Medicine 01/06/22 Suzi Kelly PA-C Specialist Internal Medicine 01/06/22 Venancio Brown MD [address] [place] [address] Specialist Cardiovascular Disease 01/06/22 documented as of this encounter
--- OUTSIDE RECORDS SUMMARY | 2024-04-05 16:59 | XMS_ITS | Encounter Summary ---
Author Organization [facility] Address [address] [place] [address] Care Team Providers Care Bobbin Winder Name Role Phone Lynne Ramos MD Primary Care Provider Eileen Diaz MD Primary Care Provider [facility], Pcp Primary Care Provider Lynne Seaman MD Primary Care Provider Suzi Anthony PA-C Unavailable Unavailable Venancio Brown MD Unavailable [phone] Encounter Details Date Type Department Care Team Description 05/25/2018 [facility]NO Controlled Substance Contract Medical Records [address] [place] [address] Abstract, Provider Social History Tobacco Use Types [...] on filedocumented in this encounter Care Teams Bobbin Winder Relationship Specialty Start Date End Date Lynne Ramos MD PCP - General Internal Medicine 03/23/16 05/03/20 Eileen Aleman MD PCP - General Internal Medicine 05/04/20 09/14/21 [facility] PCP - General Internal Medicine 09/15/21 01/05/22 Lynne Ramos MD PCP - General Internal Medicine 01/06/22 Suzi Kelly PA-C Specialist Internal Medicine 01/06/22 Venancio Brown MD [address] [place] [address] Specialist Cardiovascular Disease 01/06/22 documented as of this encounter
--- OUTSIDE RECORDS SUMMARY | 2024-04-05 16:59 | XMS_ITS | Encounter Summary ---
Author Organization [facility] Address [address] [place] [address] Care Team Providers Care Geochemist Name Role Phone Eileen Aleman MD Primary Care Provider [facility], Pcp Primary Care Provider Lynne Seaman MD Primary Care Provider Suzi Anthony PA-C Unavailable Unavailable Venancio Brown MD Unavailable [phone] Encounter Details Date Type Department Care Team Description 06/01/2021 Orders Only Medicine/Pediatrics - [address] [address] Eileen Aleman MD Cough (Primary Dx); Sore throat Social History Tobacco Use Types Packs/Day Years [...] suspected to have Coronavirus/COVID-19? No / Unsure 06/01/2021 11:38 AM EDT documented as of this encounter Plan of Treatment Scheduled Orders Name Type Priority Associated Diagnoses Orde r Schedule INFLUENZA BY PCR Lab STAT Cough Sore throat Expected: 06/01/2021, Expires: 06/01/2022 COVID-19 TESTING Lab STAT Cough Sore throat Expected: 06/01/2021, Expires: 06/01/2022 documented as of this encounter Visit Diagnoses Diagnosis Cough- Primary Sore throat Acute pharyngitis documented in this encounter Care Teams Geochemist Relationship Specialty Start Date End Date Eileen Aleman MD PCP - General Internal Medicine 05/04/20 09/14/21 [facility] Pcp PCP - General Internal Medicine 09/15/21 01/05/22 Lynne Ramos MD PCP - General Internal Medicine 01/06/22 Suzi Kelly PA-C Specialist Internal Medicine 01/06/22 Venancio Brown MD [address] [place] [address] Specialist Cardiovascular Disease 01/06/22 documented as of this encounter
--- OUTSIDE RECORDS SUMMARY | 2024-04-05 16:59 | XMS_ITS | Encounter Summary ---
Author Organization [facility] Address [address] [place] [address] Care Team Providers Care Surveyor'S Assistant Name Role Phone Lynne Ramos MD Primary Care Provider Eileen Diaz MD Primary Care Provider Spring cruz [facility], Pcp Primary Care Provider Lynne Seaman MD Primary Care Provider UnavailSuzi Guzman PA-C Unavailable Unavailable Venancio Brown MD Unavailable [phone] Encounter Details Date Type Department Care Team Description 05/25/2018 Orders Only Medicine/Pediatrics - [address] [address] Yasmine Shah PA-C Social History Tobacco Use Types Packs/Day Years [...] on filedocumented in this encounter Care Teams Surveyor'S Assistant Relationship Specialty Start Date End Date Lynne Ramos MD PCP - General Internal Medicine 03/23/16 05/03/20 Eileen Aleman MD PCP - General Internal Medicine 05/04/20 09/14/21 [facility], Pcp PCP - General Internal Medicine 09/15/21 01/05/22 Lynne Ramos MD PCP - General Internal Medicine 01/06/22 Suzi Kelly PA-C Specialist Internal Medicine 01/06/22 Venancio Brown MD [address] [place] [address] Specialist Cardiovascular Disease 01/06/22 documented as of this encounter
--- OUTSIDE RECORDS SUMMARY | 2024-04-05 16:59 | XMS_ITS | Encounter Summary ---
Author Organization [facility] Address [address] [place] [address] Care Team Providers Care Coat Baster Name Role Phone Lynne Ramos MD Primary Care Provider Eileen Diaz MD Primary Care Provider Spring cruz [facility], Pcp Primary Care Provider Lynne Seaman MD Primary Care Provider UnavailSuzi Guzman PA-C Unavailable Unavailable Venancio Brown MD Unavailable [phone] Encounter Details Date Type Department Care Team Description 11/21/2016 PNO Controlled Substance Contract Medical Records [address] [place] [address] Abstract, Provider Social History Tobacco Use Types [...] on filedocumented in this encounter Care Teams Coat Baster Relationship Specialty Start Date End Date Lynne Ramos MD PCP - General Internal Medicine 03/23/16 05/03/20 Eileen Aleman MD PCP - General Internal Medicine 05/04/20 09/14/21 [facility], Pcp PCP - General Internal Medicine 09/15/21 01/05/22 Lynne Ramos MD PCP - General Internal Medicine 01/06/22 Suzi Kelly PA-C Specialist Internal Medicine 01/06/22 Venancio Brown MD [address] [place] [address] Specialist Cardiovascular Disease 01/06/22 documented as of this encounter
--- OUTSIDE RECORDS SUMMARY | 2024-04-05 16:59 | XMS_ITS | Encounter Summary ---
Author Organization [facility] Address [address] [place] [address] Care Team Providers Care Supply Chain Associate Name Role Phone Eileen Aleman MD Primary Care Provider [facility], Pcp Primary Care Provider Lynne Seaman MD Primary Care Provider Suzi Anthony PA-C Unavailable Unavailable Venancio Brown MD Unavailable [phone] Encounter Details Date Type Department Care Team Description 06/21/2021 Pt. Non Urgent Medical Question [facility] [address] [place] [id number] Edson Adam PA-C [address] [place] [address] Social History Tobacco Use Types Packs/Day Years [...] encounter Miscellaneous Notes * Telephone Encounter - Lizett Young M.A. - 06/21/2021 10:58 AM EDTFrom: Juan A Ferreira To: Christa Kia Sent: 06/21/2021 9:13 AM EDT Subject: Foot pain and swelling Compa Sandhu, I wanted to send this picture along to you. This is the swelling in my right foot throughout the weekend. I am wearing the boot when up and taking it off for periods throughout the day to ice and elevate, however, it is still very painful, aside of the pain, I now have a feeling that something is popping or mindy ing, almost like a rubber band, and have more noticeable pain in my heel to the calf, as well as the others areas we had talked about. The crutches are not working out well. Just wondering what your thoughts are. Thank you, Juan A documented in this encounter Plan of Treatment Not on file documented as of this encounter Visit Diagnoses Not on filedocumented in this encounter Care Teams Supply Chain Associate Relationship Specialty Start Date End Date Eileen Aleman MD PCP - General Internal Medicine 05/04/20 09/14/21 [facility], Pcp PCP - General Internal Medicine 09/15/21 01/05/22 Lynne Ramos MD PCP - General Internal Medicine 01/06/22 Suzi Kelly PA-C Specialist Internal Medicine 01/06/22 Venancio Brown MD [address] [place] [address] Specialist Cardiovascular Disease 01/06/22 documented as of this encounter
--- OUTSIDE RECORDS SUMMARY | 2024-04-05 17:00 | XMS_ITS | Encounter Summary ---
Author Organization [facility] Address [address] [place] [address] Care Team Providers Care Brush Stainer Name Role Phone Lynne Ramos MD Primary Care Provider Suzi Anthony PA-C Unavailable Unavailable Venancio Brown MD Unavailable [phone] Encounter Details Date Type Department Care Team Description 01/10/2022 SCAN [facility] Medical [facility] Neurosurgery [place] [address] [phone] Jimbo Galeano PA-C [address] [address] Social History Tobacco Use Types Packs/Day Years [...] suspected to have Coronavirus/COVID-19? No / Unsure 01/13/2022 11:57 AM EST documented as of this encounter Plan of Treatment Not on file documented as of this encounter Visit Diagnoses Not on filedocumented in this encounter Care Teams Brush Stainer Relationship Specialty Start Date End Date Lynne Ramos MD PCP - General Internal Medicine 01/06/22 Suzi Kelly PA-C Specialist Internal Medicine 01/06/22 Venancio Brown MD [address] [place] [address] Specialist Cardiovascular Disease 01/06/22 documented as of this encounter
--- OUTSIDE RECORDS SUMMARY | 2024-04-05 17:00 | XMS_ITS | Encounter Summary ---
Author Organization [facility] Address [address] [place] [address] Care Team Providers Care Tripe Finisher Name Role Phone Lynne Ramos MD Primary Care Provider UnavailSuzi Guzman PA-C Unavailable Unavailable Venancio Brown MD Unavailable Encounter Details Date Type Department Care Team Description 08/22/2022 Specimen Collector Report Medical Records [address] [place] [address] Lynne Ramos MD Social History Tobacco Use Types Packs/Day Years [...] suspected to have Coronavirus/COVID-19? No / Unsure 08/05/2022 2:23 PM EDT documented as of this encounter Plan of Treatment Not on file documented as of this encounter Visit Diagnoses Not on filedocumented in this encounter Care Teams Tripe Finisher Relationship Specialty Start Date End Date Lynne Ramos MD PCP - General Internal Medicine 01/06/22 Suzi Kelly PA-C Specialist Internal Medicine 01/06/22 Venancio Brown MD [address] [place] [address] Specialist Cardiovascular Disease 01/06/22 documented as of this encounter
--- OUTSIDE RECORDS SUMMARY | 2024-04-05 17:00 | XMS_ITS | Encounter Summary ---
Author Organization [facility] Address [address] [place] [address] Care Team Providers Care Quenching Machine Operator Name Role Phone Lynne Ramos MD Primary Care Provider Suzi Anthony PA-C Unavailable Unavailable Venancio Brown MD Unavailable [phone] Encounter Details Date Type Department Care Team Description 01/06/2022 SCAN Medical Records [address] [place] [address] Abstract, Provider Social History Tobacco Use Types [...] suspected to have Coronavirus/COVID-19? No / Unsure 01/07/2022 7:53 AM EST documented as of this encounter Plan of Treatment Not on file documented as of this encounter Procedures Procedure Name Priority Date/Time Associated Diagnosis Comments OUTSIDE EKG Routine 01/06/2022 documented in this encounter Results * OUTSIDE EKG (01/06/2022) Provider Abstract CARDIOLOGY documented in this encounter Visit Diagnoses Not on filedocumented in this encounter Care Teams Quenching Machine Operator Relationship Specialty Start Date End Date Lynne Ramos MD PCP - General Internal Medicine 01/06/22 Suzi Kelly PA-C Specialist Internal Medicine 01/06/22 Venancio Brown MD [address] [place] [address] Specialist Cardiovascular Disease 01/06/22 documented as of this encounter
--- OUTSIDE RECORDS SUMMARY | 2024-04-05 17:00 | XMS_ITS | Encounter Summary ---
Author Organization [facility] Address [address] [place] [address] Care Team Providers Care Stockroom Coordinator Name Role Phone Lynne Ramos MD Primary Care Provider UnavailSuzi Guzman PA-C Unavailable Unavailable Venancio Brown MD Unavailable [phone] Encounter Details Date Type Department Care Team Description 01/06/2022 SCAN Medical Records [address] [place], [place] [id number] [place] [address] Social History Tobacco Use Types Packs/Day Years [...] on filedocumented in this encounter Care Teams Stockroom Coordinator Relationship Specialty Start Date End Date Lynne Ramos MD PCP - General Internal Medicine 01/06/22 Suzi Kelly PA-C Specialist Internal Medicine 01/06/22 Venancio Brown MD [address] [place] [address] Specialist Cardiovascular Disease 01/06/22 documented as of this encounter
--- OUTSIDE RECORDS SUMMARY | 2024-04-05 17:00 | XMS_ITS | Encounter Summary ---
Author Organization [facility] Address [address] [place] [address] Care Team Providers Care Screen Making Technician Name Role Phone Lynne Ramos MD Primary Care Provider Eileen Diaz MD Primary Care Provider Spring cruz [facility], Pcp Primary Care Provider Lynne Seaman MD Primary Care Provider Suzi Anthony PA-C Unavailable Unavailable Venancio Brown MD Unavailable [phone] Encounter Details Date Type Department Care Team Description 04/08/2020 Orders Only Medicine/Pediatrics - [address] [phone] Lynne Ramos MD Social History Tobacco Use [...] on filedocumented in this encounter Care Teams Screen Making Technician Relationship Specialty Start Date End Date Lynne Ramos MD PCP - General Internal Medicine 03/23/16 05/03/20 Eileen Aleman MD PCP - General Internal Medicine 05/04/20 09/14/21 [facility], Pcp PCP - General Internal Medicine 09/15/21 01/05/22 Lynne Ramos MD PCP - General Internal Medicine 01/06/22 Suzi Kelly PA-C Specialist Internal Medicine 01/06/22 Venancio Brown MD [address] [place] [address] Specialist Cardiovascular Disease 01/06/22 documented as of this encounter
--- OUTSIDE RECORDS SUMMARY | 2024-04-05 17:00 | XMS_ITS | Encounter Summary ---
Author Organization [facility] Address [address] [place] [address] Care Team Providers Care Linux Unix Administrator Name Role Phone Lynne Ramos MD Primary Care Provider Eileen Diaz MD Primary Care Provider Spring [facility], Pcp Primary Care Provider Lynne Seaman MD Primary Care Provider Suzi Anthony PA-C Unavailable Unavailable Venanico Brown MD Unavailable [phone] Encounter Details Date Type Department Care Team Description 04/06/2020 Private Household Worker Report Medical Records [address] [place] [address] Janie Harris, JUNITO Social History Tobacco Use Types Packs/Day Years [...] on filedocumented in this encounter Care Teams Linux Unix Administrator Relationship Specialty Start Date End Date Lynne Ramos MD PCP - General Internal Medicine 03/23/16 05/03/20 Eileen Aleman MD PCP - General Internal Medicine 05/04/20 09/14/21 [facility] PCP - General Internal Medicine 09/15/21 01/05/22 Lynne Ramos MD PCP - General Internal Medicine 01/06/22 Suzi Kelly PA-C Specialist Internal Medicine 01/06/22 Venancio Brown MD [address] [place] [address] Specialist Cardiovascular Disease 01/06/22 documented as of this encounter
--- OUTSIDE RECORDS SUMMARY | 2024-04-05 17:00 | XMS_ITS | Encounter Summary ---
Author Organization [facility] Address [address] [place] [address] Care Team Providers Care Radio Tower Technician Name Role Phone Lynne Ramos MD Primary Care Provider Eileen Diaz MD Primary Care Provider [facility], Pcp Primary Care Provider Lynne Seaman MD Primary Care Provider Suzi Anthony PA-C Unavailable Unavailable Venancio Brown MD Unavailable [phone] Encounter Details Date Type Department Care Team Description 02/12/2019 Orders Only Medicine/Pediatrics - [address] [address] Lynne Ramos MD Left flank pain (Primary Dx) Social History Tobacco Use Types Packs/Day Years [...] on file documented as of this encounter Results * SONO RETROPERITONEAL LIMITED (02/12/2019 2:02 PM EST) 02/12/2019 3:42 PM EST Impressions [facility] - 02/12/2019 3:43 PM EST IMPRESSION: ??Normal renal ultrasound. Narrative [facility] - 02/12/2019 3:43 PM EST SONO RETROPERITONEAL LIMITED HISTORY: ??Left flank pain. Prior study: Abdominal ultrasound 09/20/2016. FINDINGS: ??The right kidney measures 11.8 cm in length. The left kidney measures 11.0 cm in length. ??Both kidneys demonstrate normal echotexture. ??No hydronephrosis, masses, calculi, or perinephric collections are seen. The bladder was not examined on this study.. Procedure Note Rosemarie Felix MD - 02/12/2019 SONO RETROPERITONEAL LIMITED HISTORY: Left flank pain. Prior study: Abdominal ultrasound 09/20/2016. FINDINGS: The right kidney measures 11.8 cm in length. The left kidneymeasures 11.0 cm in length. Both kidneys demonstrate normal echotexture. No hydronephrosis,masses, calculi, or perinephric collections are seen. The bladder was not examined on this study.. IMPRESSION IMPRESSION: Normal renal ultrasound. Lynne Ramos MD ULTRASOUND Performing Organization Address [facility] Co de Phone Number [facility] OTHER EXTERNAL * URINE, CULTURE (02/12/2019 12:43 PM EST) Urine (Urine) 02/12/2019 12: 43 PM EST 02/12/2019 12:43 PM EST Narrative ROSA ARGUELLO - 02/13/2019 9:32 AM EST No growth Lynne Ramos MD LAB Performing Organization Address [facility] Co de Phone Number [facility] [employer] documented in this encounter Visit Diagnoses Diagnosis Left flank pain- Primary Abdominal pain, unspecified site Left flank pain Abdominal pain, unspecified site documented in this encounter Care Teams Radio Tower Technician Relationship Specialty Start Date End Date Lynne Ramos MD PCP - General Internal Medicine 03/23/16 05/03/20 Eileen Aleman MD PCP - General Internal Medicine 05/04/20 09/14/21 [facility], Pcp PCP - General Internal Medicine 09/15/21 01/05/22 Lynne Ramos MD PCP - General Internal Medicine 01/06/22 Suzi Kelly PA-C Specialist Internal Medicine 01/06/22 Venancio Brown MD [address] [facility] [address] [place] [address] Specialist Cardiovascular Disease 01/06/22 documented as of this encounter
--- OUTSIDE RECORDS SUMMARY | 2024-04-05 17:00 | XMS_ITS | Encounter Summary ---
Author Organization [facility] Address [address] [place] [address] Care Team Providers Care Vending Enterprises Supervisor Name Role Phone Lynne Ramos MD Primary Care Provider Suzi Anthony PA-C Unavailable Unavailable Venancio Brown MD Unavailable [phone] Encounter Details Date Type Department Care Team Description 08/25/2022 SCAN Medical Records [address] [place] [address] Lynne Ramos MD Social History Tobacco Use [...] Name Priority Date/Time Associated Diagnosis Comments OUTSIDE LAB Routine 08/25/2022 documented in this encounter Results * OUTSIDE LAB (08/25/2022) Provider Abstract LAB documented in this encounter Visit Diagnoses Not on filedocumented in this encounter Care Teams Vending Enterprises Supervisor Relationship Specialty Start Date End Date Lynne Ramos MD PCP - General Internal Medicine 01/06/22 Suzi Kelly PA-C Specialist Internal Medicine 01/06/22 Venancio Brown MD [address] [place] [address] Specialist Cardiovascular Disease 01/06/22 documented as of this encounter
--- OUTSIDE RECORDS SUMMARY | 2024-04-05 17:00 | XMS_ITS | Encounter Summary ---
Author Organization [facility] Address [address] [place] [address] Care Team Providers Care Contract Sheltered Workshop Supervisor Name Role Phone Lynne Ramos MD Primary Care Provider Eileen Diaz MD Primary Care Provider [facility], Pcp Primary Care Provider Lynne Seaman MD Primary Care Provider Suzi Anthony PA-C Unavailable Unavailable Venancio Brown MD Unavailable [phone] Reason for Visit * Reason Onset Date Comments REFERRAL 03/25/2019 Encounter Details Date Type Department Care Team Description 03/25/2019 Telephone Medicine/Pediatrics - [address] [address] Lynne Ramos MD REFERRAL Social History Tobacco Use Types Packs/Day Years [...] encounter Miscellaneous Notes * Telephone Encounter - Tejal Carrion - 03/25/2019 11:38 AM EST FYI to ordering provider. Re:Physiatry All attempts exhausted to reach patient to book appt. KMS. documented in this encounter Plan of Treatment Not on file documented as of this encounter Visit Diagnoses Not on filedocumented in this encounter Care Teams Contract Sheltered Workshop Supervisor Relationship Specialty Start Date End Date Lynne Ramos MD PCP - General Internal Medicine 03/23/16 05/03/20 Eileen Aleman MD PCP - General Internal Medicine 05/04/20 09/14/21 [facility] PCP - General Internal Medicine 09/15/21 01/05/22 Lynne Ramos MD PCP - General Internal Medicine 01/06/22 Suzi Kelly PA-C Specialist Internal Medicine 01/06/22 Venancio Brown MD [address] [place] [address] Specialist Cardiovascular Disease 01/06/22 documented as of this encounter
--- OUTSIDE RECORDS SUMMARY | 2024-04-05 17:00 | XMS_ITS | Encounter Summary ---
Author Organization [facility] Address [address] [place] [address] Care Team Providers Care Stamp Pad Finisher Name Role Phone Lynne Ramos MD Primary Care Provider Eileen Diaz MD Primary Care Provider [facility], Pcp Primary Care Provider Lynne Seaman MD Primary Care Provider Suzi Anthony PA-C Unavailable Unavailable Venancio Brown MD Unavailable [phone] Reason for Visit * Reason Onset Date Comments Medication 05/05/2016 looking for medi cation as discuss Encounter Details Date Type Department Care Team Description 05/05/2016 Telephone Medicine/Pediatrics [address] [phone] Yasmine Shah PA-C Medication (looking for medication as discuss ) Social History Tobacco Use Types Packs/Day Years [...] encounter Miscellaneous Notes * Telephone Encounter - Yasmine Shah PA-C - 05/05/2016 8:55 AM EDT Sent already to pharmacy * Telephone Encounter - Cynthia Meadows M.A. - 05/05/2016 8:37 AM EDT Looking for rx as discuss. documented in this encounter Plan of Treatment Not on file documented as of this encounter Visit Diagnoses Not on filedocumented in this encounter Care Teams Stamp Pad Finisher Relationship Specialty Start Date End Date Lynne Ramos MD PCP - General Internal Medicine 03/23/16 05/03/20 Eileen Aleman MD PCP - General Internal Medicine 05/04/20 09/14/21 [facility] PCP - General Internal Medicine 09/15/21 01/05/22 Lynne Ramos MD PCP - General Internal Medicine 01/06/22 Suzi Kelly PA-C Specialist Internal Medicine 01/06/22 Venancio Brown MD [address] [place] [address] Specialist Cardiovascular Disease 01/06/22 documented as of this encounter
--- OUTSIDE RECORDS SUMMARY | 2024-04-05 17:00 | XMS_ITS | Encounter Summary ---
Author Organization [facility] Address [address] [place] [address] Care Team Providers Care Card Sorter Name Role Phone Lynne Ramos MD Primary Care Provider Eileen Diaz MD Primary Care Provider [facility], Pcp Primary Care Provider Lynne Seaman MD Primary Care Provider Suzi Anthony PA-C Unavailable Unavailable Venancio Brown MD Unavailable [phone] Reason for Referral * Non OVIDIO (Priority) - Authorized Specialty Diagnoses / Procedures Referred By Ender t Referred To Contact Pulmonology Procedures REFERRAL TO PULMONOLOGY Lynne Ramos MD [address] [place] [address] Radha Ruiz MD [address] [place] [address] Referral ID Status Reason Start Date Expiration Date V isits Requested Visits Authorized [id number] Authorized 08/12/2019 08/11/2020 12 12 Encounter Details Date Type Department Care Team Description 08/12/2019 Orders Only Medicine/Pediatrics - [address] [phone] Lynne Ramos MD Exposure to Covid-19 Virus (Primary Dx); Moderate persistent asthma, unspecified whether complicated Social History Tobacco Use Types Packs/Day Years [...] documented as of this encounter Results * SARS-COV-2 IGG AB PROFILE (08/20/2019 1:00 PM EDT) Pathologist [facility] SARS-COV-2 IGG AB NEGATIVE. < 3.80 NEGATIVE 08/20/2019 6:[address] [facility] Comment: SARS-CoV-2 IgG antibodies were not detected. A negative result may indicate absence or level of IgG antibodies to SARS-CoV-2 below the limit of detection of this test. Please note that this does not rule out prior infection with SARS-CoV-2, as negative results may occur in serum collected too soon following infection, in immunosuppressed patients, or in some individuals with prior mild illness. Negative results do not preclude acute SARS-CoV-2 infection. However, it is possible for this test to give a negative result that is incorrect (false negative) in some people with COVID-19 infection. A negative result may occur if you are tested early in your illness and your body hasn't had time to produce antibodies to infection. Sensitivity of the assay may be negatively affected if testing is performed less than 15 days after initial diagnosis. This test should NOT be used to diagnose or to exclude active or recent COVID-19. Molecular testing to detect RNA of SARS-CoV-2 is recommended to establish a diagnosis of COVID-19 in symptomatic patients. This test was performed on the [employer] analysis platform and is authorized by FDA for use under an Emergency Use Authorization (EUA). ??This test is not yet approved or cleared by the FDA. However, the FDA can make tests available under an emergency access mechanism called an Emergency Use Authorization (EUA). The EUA for this test is supported by the [employer] Manager of Health and Human Service's (HHS's) declaration that circumstances exist to justify the emergency use of in vitro diagnostics for the detection and/or diagnosis of the virus that causes COVID-19. Analytical performance characteristics were validated by the rn urgent care and by [employer] in a manner consistent with CLIA requirements. The FDA requires that a fact sheet be made available for patients and healthcare providers regarding this test. The fact sheet for patients may be found at: https://www.fda.gov/media/145123/download The fact sheet for healthcare providers may be found at: https://www.fda.gov/media/341766/download 08/20/2019 1:00 PM EDT 08/20/2019 1:03 PM EDT Lynne Ramos MD LAB [facility] [employer] documented in this encounter Visit Diagnoses Diagnosis Exposure to COVID-19 virus- Primary Moderate persistent asthma, unspecified whether complicated documented in this encounter Care Teams Card Sorter Relationship Specialty Start Date End Date Lynne Ramos MD PCP - General Internal Medicine 03/23/16 05/03/20 Eileen Aleman MD PCP - General Internal Medicine 05/04/20 09/14/21 [facility] PCP - General Internal Medicine 09/15/21 01/05/22 Lynne Ramos MD PCP - General Internal Medicine 01/06/22 Suzi Kelly PA-C Specialist Internal Medicine 01/06/22 Venancio Brown MD [address] [place] [address] Specialist Cardiovascular Disease 01/06/22 documented as of this encounter
--- OUTSIDE RECORDS SUMMARY | 2024-04-05 17:00 | XMS_ITS | Encounter Summary ---
Author Organization [facility] Address [address] [place] [address] Care Team Providers Care Cotton Picker Name Role Phone Community, Pcp Primary Care Provider Lynne Seaman MD Primary Care Provider Suzi Anthony PA-C Unavailable Unavailable Venancio Brown MD Unavailable [phone] Encounter Details Date Type Department Care Team Description 11/09/2021 [facility] Neurosurgery [place] [address] [id number] Jimbo Galeano PA-C [address] [address] Social History Tobacco Use Types Packs/Day Years [...] suspected to have Coronavirus/COVID-19? No / Unsure 11/10/2021 9:24 AM EDT documented as of this encounter Plan of Treatment Not on file documented as of this encounter Visit Diagnoses Not on filedocumented in this encounter Care Teams Cotton Picker Relationship Specialty Start Date End Date Community, Pcp PCP - General Internal Medicine 09/15/21 01/05/22 Lynne Ramos MD PCP - General Internal Medicine 01/06/22 Suzi Kelly PA-C Specialist Internal Medicine 01/06/22 Venancio Brown MD [address] [address] Specialist Cardiovascular Disease 01/06/22 documented as of this encounter
--- OUTSIDE RECORDS SUMMARY | 2024-04-05 17:00 | XMS_ITS | Encounter Summary ---
Author Organization [facility] Address [address] [place] [address] Care Team Providers Care Marketing Teacher Name Role Phone Lynne Ramos MD Primary Care Provider Eileen Diaz MD Primary Care Provider [place] [facility], Pcp Primary Care Provider Lynne Seaman MD Primary Care Provider Suzi Anthony PA-C Unavailable Unavailable Venancio Brown MD Unavailable [phone] Encounter Details Date Type Department Care Team Description 02/27/2018 Client Evaluator Report Medical Records [address] [place] [id number] Feliciano Negrete MD Social History Tobacco Use Types Packs/Day [...] filedocumented in this encounter Care Teams Marketing Teacher Relationship Specialty Start Date End Date Lynne Ramos MD PCP - General Internal Medicine 03/23/16 05/03/20 Eileen Aleman MD PCP - General Internal Medicine 05/04/20 09/14/21 [facility], [facility] PCP - General Internal Medicine 09/15/21 01/05/22 Lynne Ramos MD PCP - General Internal Medicine 01/06/22 Suzi Kelly PA-C Specialist Internal Medicine 01/06/22 Venancio Brown MD [address] [place] [address] Specialist Cardiovascular Disease 01/06/22 documented as of this encounter
--- OUTSIDE RECORDS SUMMARY | 2024-04-05 17:00 | XMS_ITS | Encounter Summary ---
Author Organization [facility] Address [address] [place] [address] Care Team Providers Care Casting Wheel Operator Helper Name Role Phone Lynne Ramos MD Primary Care Provider Eileen Diaz MD Primary Care Provider [place] [facility], Pcp Primary Care Provider Lynne Seaman MD Primary Care Provider Suzi Anthony PA-C Unavailable Unavailable Venancio Brown MD Unavailable [phone] Encounter Details Date Type Department Care Team Description 08/28/2017 Release of Information Medical Records [address] [place] [address] Abstract, Provider Social History Tobacco Use Types [...] on filedocumented in this encounter Care Teams Casting Wheel Operator Helper Relationship Specialty Start Date End Date Lynne Ramos MD PCP - General Internal Medicine 03/23/16 05/03/20 Eileen Aleman MD PCP - General Internal Medicine 05/04/20 09/14/21 [facility], [facility] PCP - General Internal Medicine 09/15/21 01/05/22 Lynne Ramos MD PCP - General Internal Medicine 01/06/22 Suzi Kelly PA-C Specialist Internal Medicine 01/06/22 Venancio Brown MD [address] [place] [address] Specialist Cardiovascular Disease 01/06/22 documented as of this encounter
--- OUTSIDE RECORDS SUMMARY | 2024-04-05 17:00 | XMS_ITS | Encounter Summary ---
Author Organization [facility] Address [address] [place] [address] Care Team Providers Care Tank Truck Mechanic Name Role Phone Lynne Ramos MD Primary Care Provider Suzi Anthony PA-C Unavailable Unavailable Venancio Brown MD Unavailable [phone] Reason for Visit * Reason Onset Date Comments Blood Pressure Elevated 01/11/2022 Encounter Details Date Type Department Care Team Description 01/11/2022 Telephone Cardio [facility] [address] [facility] [address] [place] [id number] Venancio Brown MD [address] [place] [address] Blood Pressure Elevated Social History Tobacco Use Types Packs/Day Years [...] AM EST documented as of this encounter Miscellaneous Notes * Telephone Encounter - Sweetie Sargent R.N. - 01/14/2022 11:41 AM EST I spoke with pt again at request of CR. 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 She states she has had more frequent episodes of chest discomfort over the last few days, however, states not to a severity that she feels would warrant an emergent evaluation.She admits to increased anxiety and states she has had her menses for 3 weeks straight so unsure ifthis could be contributing. I also let her know CR doesn't feel her BP is dangerous and should continue work up with endo, defer additional BP agent to endo. I provided update to CR and he states he can call pt a little later. * Telephone Encounter - Venancio Brown MD - 01/14/2022 9:51 AM EST That's fine. Im not aware of specific interactions with losartan/HCTZ and concern for pheochromocytoma though I will defer to them at this point. Typically we avoid beta blockers in this setting though if her distribution center administrator wants to discuss further BP management would be happy to do so. * Telephone Encounter - Sweetie Sargent R.N. - 01/14/2022 9:31 AM EST I spoke with pt this morning. She tells me she saw endocrinology Dr. Dockery yesterday after urine wasgrossly positive for metanephrines. His note is in her record. She was taking losartan-hctz 100-25 mg daily prior to her visit with you but because of a misunderstanding, she stopped it when she started the amlodipine. However, she tells me Dr. Dockery advised her it was not a good idea to restart it.He did not advise a different medication. * Telephone Encounter - Venancio Brown MD - 01/14/2022 9:00 AM EST SHould be in addition to the amlodipine. I believe she was on losartan prior to the change last week. Could you clarify the dose she was taking? * Telephone Encounter - Sweetie Sargent R.N. - 01/11/2022 11:32 AM EST Pt saw you on Monday, OV notes have not been completed. She states BP continues to run high, 158/122 this morning, 160/118 yesterday, taken by [place] at her office. She tells me she is only taking the newly prescribed amlodipine 5 mg daily, and thought you wanted it to replace the losartan-hctz. I toldher usually it would be in addition to, not in place of, however, without notes, need you to clarify. * Telephone Encounter - Padmini Marina - 01/11/2022 11:23 AM EST Patient calling stating she was seen on Sunday 01/07 and was prescribed amplodipine, states her blood pressure has yet to come down. States today was 158/122. States has been consistantly there. States today she has been having some dizziniess along with it. documented in this encounter Plan of Treatment Not on file documented as of this encounter Visit Diagnoses Not on filedocumented in this encounter Care Teams Tank Truck Mechanic Relationship Specialty Start Date End Date Lynne Ramos MD PCP - General Internal Medicine 01/06/22 Suzi Kelly PA-C Specialist Internal Medicine 01/06/22 Venancio Brown MD [address] [place] [address] Specialist Cardiovascular Disease 01/06/22 documented as of this encounter
--- OUTSIDE RECORDS SUMMARY | 2024-04-05 17:00 | XMS_ITS | Encounter Summary ---
Author Organization [facility] Address [address] [place] [address] Care Team Providers Care College Basketball Coach Name Role Phone Lynne Ramos MD Primary Care Provider Eileen Diaz MD Primary Care Provider [facility], Pcp Primary Care Provider Lynne Seaman MD Primary Care Provider Suzi Anthony PA-C Unavailable Unavailable Venancio Brown MD Unavailable [phone] Encounter Details Date Type Department Care Team Description 06/25/2019 [facility] Medical Records [address] [place] [address] Abstract, Provider Social History Tobacco Use Types [...] on filedocumented in this encounter Care Teams College Basketball Coach Relationship Specialty Start Date End Date Lynne Ramos MD PCP - General Internal Medicine 03/23/16 05/03/20 Eileen Aleman MD PCP - General Internal Medicine 05/04/20 09/14/21 [facility] PCP - General Internal Medicine 09/15/21 01/05/22 Lynne Ramos MD PCP - General Internal Medicine 01/06/22 Suzi Kelly PA-C Specialist Internal Medicine 01/06/22 Venancio Bronw MD [address] [place] [address] Specialist Cardiovascular Disease 01/06/22 documented as of this encounter
--- OUTSIDE RECORDS SUMMARY | 2024-04-05 17:00 | XMS_ITS | Encounter Summary ---
Author Organization [facility] Address [address] [place] [address] Care Team Providers Care Stencil Cutter Name Role Phone Lynne Ramos MD Primary Care Provider UnavailSuzi Guzman PA-C Unavailable Unavailable Venancio Brown MD Unavailable [phone] Encounter Details Date Type Department Care Team Description 01/07/2022 Release of Information Medical Records [address] [place] [id number] [place] [address] Social History Tobacco Use Types Packs/Day Years [...] Recorded In the last 10 days, have ty u been in contact with someone who was confirmed or suspected to have Coronavirus/COVID-19? No / Unsure 01/07/2022 7:53 AM EST documented as of this encounter Plan of Treatment Not on file documented as of this encounter Visit Diagnoses Not on filedocumented in this encounter Care Teams Stencil Cutter Relationship Specialty Start Date End Date Lynne Ramos MD PCP - General Internal Medicine 01/06/22 Suzi Kelly PA-C Specialist Internal Medicine 01/06/22 Venancio Brown MD [address] [place] [address] Specialist Cardiovascular Disease 01/06/22 documented as of this encounter
--- OUTSIDE RECORDS SUMMARY | 2024-04-05 17:00 | XMS_ITS | Encounter Summary ---
Author Organization [facility] Address [address] [place] [address] Care Team Providers Care Copy Lathe Tender Name Role Phone Lynne Ramos MD Primary Care Provider Eileen Diaz MD Primary Care Provider [facility], Pcp Primary Care Provider Lynne Seaman MD Primary Care Provider Suzi Anthony PA-C Unavailable Unavailable Venancio Brown MD Unavailable [phone] Encounter Details Date Type Department Care Team Description 11/22/2018 Controlled Substance Plan Medical Records [address] [place] [address] Abstract, Provider Social History Tobacco Use Types [...] on filedocumented in this encounter Care Teams Copy Lathe Tender Relationship Specialty Start Date End Date Lynne Ramos MD PCP - General Internal Medicine 03/23/16 05/03/20 Eileen Aleman MD PCP - General Internal Medicine 05/04/20 09/14/21 [facility], [facility] PCP - General Internal Medicine 09/15/21 01/05/22 Lynne Ramos MD PCP - General Internal Medicine 01/06/22 Suzi Kelly PA-C Specialist Internal Medicine 01/06/22 Venancio Brown MD [address] [place] [address] Specialist Cardiovascular Disease 01/06/22 documented as of this encounter
--- OUTSIDE RECORDS SUMMARY | 2024-04-05 17:00 | XMS_ITS | Encounter Summary ---
Author Organization [facility] Address [address] [place] [address] Care Team Providers Care Garden Worker Name Role Phone Lynne Ramos MD Primary Care Provider Eileen Diaz MD Primary Care Provider [place] [facility], Pcp Primary Care Provider Lynne Seaman MD Primary Care Provider Suzi Anthony PA-C Unavailable Unavailable Venancio Brown MD Unavailable [phone] Encounter Details Date Type Department Care Team Description 02/17/2017 Crinkling Machine Operator Report Medical Records [address] [place] [address] Rosita Will MD Social History Tobacco Use Types Packs/Day [...] on filedocumented in this encounter Care Teams Garden Worker Relationship Specialty Start Date End Date Lynne Ramos MD PCP - General Internal Medicine 03/23/16 05/03/20 Eileen Aleman MD PCP - General Internal Medicine 05/04/20 09/14/21 [facility], Pcp PCP - General Internal Medicine 09/15/21 01/05/22 Lynne Ramos MD PCP - General Internal Medicine 01/06/22 Suzi Kelly PA-C Specialist Internal Medicine 01/06/22 Venancio Brown MD [address] [place] [address] Specialist Cardiovascular Disease 01/06/22 documented as of this encounter
--- OUTSIDE RECORDS SUMMARY | 2024-04-05 17:00 | XMS_ITS | Encounter Summary ---
Author Organization [facility] Address [address] [place] [address] Care Team Providers Care Laborer Car Barn Name Role Phone Eileen Aleman MD Primary Care Provider [facility], Pcp Primary Care Provider Lynne Seaman MD Primary Care Provider Suzi Anthony PA-C Unavailable Unavailable Venancio Brown MD Unavailable [phone] Encounter Details Date Type Department Care Team Description 07/13/2020 Refill Medicine/Pediatrics - [address] [phone] Lynne Ramos MD Social History Tobacco Use [...] Exposure Response Date Recorded In the last month, have you been in contact with someone who was confirmed or suspected to have Coronavirus / COVID-19? Yes 06/26/2020 3:57 PM EDT documented as of this encounter Plan of Treatment Not on file documented as of this encounter Visit Diagnoses Not on filedocumented in this encounter Care Teams Laborer Car Barn Relationship Specialty Start Date End Date Eileen Aleman MD PCP - General Internal Medicine 05/04/20 09/14/21 Community, Pcp PCP - General Internal Medicine 09/15/21 01/05/22 Lynne Ramos MD PCP - General Internal Medicine 01/06/22 Suzi Kelly PA-C Specialist Internal Medicine 01/06/22 Venancio Brown MD [address] [address] Specialist Cardiovascular Disease 01/06/22 documented as of this encounter
--- OUTSIDE RECORDS SUMMARY | 2024-04-05 17:00 | XMS_ITS | Encounter Summary ---
Author Organization [facility] Address [address] [place] [address] Care Team Providers Care Clean Room Assembler Name Role Phone Lynne Ramos MD Primary Care Provider Eileen Diaz MD Primary Care Provider [place] [facility], Pcp Primary Care Provider UnavailLynne Barnes MD Primary Care Provider uSzi Anthony PA-C Unavailable Unavailable Venancio Brown MD Unavailable [phone] Encounter Details Date Type Department Care Team Description 05/25/2016 Transfer Records Medical Records [address] [place] [address] Abstract, Provider Social History Tobacco Use Types [...] on filedocumented in this encounter Care Teams Clean Room Assembler Relationship Specialty Start Date End Date Lynne Ramos MD PCP - General Internal Medicine 03/23/16 05/03/20 Eileen Aleman MD PCP - General Internal Medicine 05/04/20 09/14/21 [facility], Pcp PCP - General Internal Medicine 09/15/21 01/05/22 Lynne Ramos MD PCP - General Internal Medicine 01/06/22 Suzi Kelly PA-C Specialist Internal Medicine 01/06/22 Venancio Brown MD [address] [place] [address] Specialist Cardiovascular Disease 01/06/22 documented as of this encounter
--- OUTSIDE RECORDS SUMMARY | 2024-04-05 17:00 | XMS_ITS | Encounter Summary ---
Author Organization [facility] Address [address] [place] [address] Care Team Providers Care Auditor Name Role Phone Lynne Ramos MD Primary Care Provider Eileen Diaz MD Primary Care Provider [place] [facility], Pcp Primary Care Provider Lynne Seaman MD Primary Care Provider Suzi Anthony PA-C Unavailable Unavailable Venancio Brown MD Unavailable [phone] Encounter Details Date Type Department Care Team Description 10/04/2018 [facility] Medical Records [address] [place] [address] Abstract, Provider Social History Tobacco Use Types [...] on filedocumented in this encounter Care Teams Auditor Relationship Specialty Start Date End Date Lynne Ramos MD PCP - General Internal Medicine 03/23/16 05/03/20 Eileen Aleman MD PCP - General Internal Medicine 05/04/20 09/14/21 [facility], [facility] PCP - General Internal Medicine 09/15/21 01/05/22 Lynne Ramos MD PCP - General Internal Medicine 01/06/22 Suzi Kelly PA-C Specialist Internal Medicine 01/06/22 Venancio Brown MD [address] [place] [address] Specialist Cardiovascular Disease 01/06/22 documented as of this encounter
--- OUTSIDE RECORDS SUMMARY | 2024-04-05 17:00 | XMS_ITS | Encounter Summary ---
Author Organization [facility] Address [address] [place] [address] Care Team Providers Care Street Superintendent Name Role Phone Lynne Ramos MD Primary Care Provider Eileen Diaz MD Primary Care Provider [place] [facility], Pcp Primary Care Provider Lynne Seaman MD Primary Care Provider Suzi Anthony PA-C Unavailable Unavailable Venancio Brown MD Unavailable [phone] Encounter Details Date Type Department Care Team Description 01/11/2019 Orders Only Medicine/Pediatrics [address] [phone] Lynne Ramos MD Social History Tobacco Use [...] on filedocumented in this encounter Care Teams Street Superintendent Relationship Specialty Start Date End Date Lynne Ramos MD PCP - General Internal Medicine 03/23/16 05/03/20 Eileen Aleman MD PCP - General Internal Medicine 05/04/20 09/14/21 [facility], Pcp PCP - General Internal Medicine 09/15/21 01/05/22 Lynne Ramos MD PCP - General Internal Medicine 01/06/22 Suzi Kelly PA-C Specialist Internal Medicine 01/06/22 Venancio Brown MD [address] [place] [address] Specialist Cardiovascular Disease 01/06/22 documented as of this encounter
--- OUTSIDE RECORDS SUMMARY | 2024-04-05 17:00 | XMS_ITS | Encounter Summary ---
Author Organization [facility] Address [address] [place] [address] Care Team Providers Care Guest House Manager Name Role Phone Community, Pcp Primary Care Provider Lynne Seaman MD Primary Care Provider Suzi Anthony PA-C Unavailable Unavailable Venancio Brown MD Unavailable [phone] Encounter Details Date Type Department Care Team Description 11/05/2021 SCAN Medical Records [address] [place] [id number] Abstract, Provider Social History Tobacco Use Types [...] Date/Time Associated Diagnosis Comments OUTSIDE LAB Routine 11/05/2021 OUTSIDE LAB Routine 11/05/2021 documented in this encounter Results * OUTSIDE LAB (11/05/2021) Provider Abstract LAB * OUTSIDE LAB (11/05/2021) Provider Abstract LAB documented in this encounter Visit Diagnoses Not on filedocumented in this encounter Care Teams Guest House Manager Relationship Specialty Start Date End Date Community, Pcp PCP - General Internal Medicine 09/15/21 01/05/22 Lynne Ramos MD PCP - General Internal Medicine 01/06/22 Suzi Kelly PA-C Specialist Internal Medicine 01/06/22 Venancio Brown MD [address] [place] [address] Specialist Cardiovascular Disease 01/06/22 documented as of this encounter
--- OUTSIDE RECORDS SUMMARY | 2024-04-05 17:00 | XMS_ITS | Encounter Summary ---
Author Organization [facility] Address [address] [place] [address] Care Team Providers Care Bicycle Fitter Name Role Phone Eileen Aleman MD Primary Care Provider [place], Pcp Primary Care Provider Lynne Seaman MD Primary Care Provider Suzi Anthony PA-C Unavailable Unavailable Venancio Brown MD Unavailable [phone] Encounter Details Date Type Department Care Team Description 07/29/2020 Release of Information Medical Records [address] [place] [id number] Abstract, Provider Social History Tobacco Use Types [...] or suspected to have Coronavirus / COVID-19? Unable to assess 07/17/2020 7:55 AM EDT documented as of this encounter Plan of Treatment Not on file documented as of this encounter Visit Diagnoses Not on filedocumented in this encounter Care Teams Bicycle Fitter Relationship Specialty Start Date End Date Eileen Aleman MD PCP - General Internal Medicine 05/04/20 09/14/21 [facility], Pcp PCP - General Internal Medicine 09/15/21 01/05/22 Lynne Ramos MD PCP - General Internal Medicine 01/06/22 Suzi Kelly PA-C Specialist Internal Medicine 01/06/22 Venancio Brown MD [address] [place] [address] Specialist Cardiovascular Disease 01/06/22 documented as of this encounter
--- OUTSIDE RECORDS SUMMARY | 2024-04-05 17:00 | XMS_ITS | Clinical Summary ---
Author Organization [facility] [address] [facility] Address [address] [place] [address] Phone Care Team Providers Care Associate Merchandise Planner Name Role Phone Lynne Jean MD Primary Care Provider Allergies Active Allergy Reactions Criticality Noted Date [...] 3:45 PM EST - 02/29/2024 11:46 PM [facility] Emergency [address] [place] [address] Vickey Sharma MD King, Marie A, MD Chest pain, unspecified type (Primary Dx) Discharge Disposition: Left Against Medical Advice 02/22/2024 10:50 PM EST - 02/24/2024 3:25 PM [facility] [address] [place] [address] Pamela Sommer MD Jones, Christopher, MD Flores, [...] older (Afluria) 3 years and older 11/23/2018 [employer] SARS-CoV-2 COVID-19, mRNA, LNP-S, preservative free 03/29/2021,02/18/2020,01/26/2020 [...] AR LAPAROSCOPY SURG CHOLECYSTECTOMY; COMMENT: Laparoscopic cholecystectomy; [place]; [...] by: Shaun Troncoso MD on 03/01/2024 04:26:29 [facility] B Zachary WARD IM CT PROCEDURES [...] No significant change from the prior study. [id number] -------- FINAL REPORT -------- Dictated By: Chiki Sebastian Dictated Date: 02/29/2024 14:44 ET Assigned Physician: Chiki Sebastian Reviewed and Electronically Signed By: Chiki Sebastian Signed Date: 02/29/2024 14:45 ET Workstation ID: [id number] Transcribed By: Self Edit Transcribed Date: 02/29/2024 [...] disease. No significant change from theprior study. [id number] -------- FINAL REPORT -------- Dictated By: Chiki Sebastian Dictated Date: 02/29/2024 14:44 ET Assigned Physician: Chiki Sebastian Reviewed and Electronically Signed By: Chiki Sebastian Signed Date: 02/29/2024 14:45 ET Workstation ID: [id number] Transcribed By: Self Edit Transcribed Date: 02/29/2024 14:44 ET us Vickey Sharma MD IMG XR PROCEDURES Final Result * Troponin I high sensitivity (02/29/2024 2:02 PM EST) Only the most recent of4 resultswithin the time period is included. High Sensitivity Troponin I 11 <=54 ng/L LAB CHEMISTRY METHOD 02/29/2024 3:30 PM EST [facility] Blood Venous blood specimen / Unknown Venipuncture / Unknown 02/29/2024 2:02 PM EST 02/29/2024 2:58 PM EST Narrative [facility] - 02/29/2024 3:30 PM EST High levels of biotin in samples may falsely decrease hsTroponin values. ??Use caution when interpreting hsTroponin results in patients taking biotin who exhibit renal impairment (eGFR <60) or in patients taking more than 20 mg/day of biotin. us Vickey Sharma MD LAB BLOOD ORDERABLES Final Resu lt [facility] [address] [place] [address], * (ABNORMAL) CBC auto differential (02/29/2024 12:02 [...] LAB HEMETOLOGY METHOD 02/29/2024 1:38 PM EST [facility] Monocytes Absolute 0.62 0.20 - 1.00 K/mcL LAB HEMETOLOGY METHOD 02/29/2024 1:38 PM EST [facility] Eosinophils Absolute 0.22 0.00 - 0.50 K/mcL LAB HEMETOLOGY METHOD 02/29/2024 1:38 PM EST [facility] Basophils Absolute 0.08 0.00 - 0.20 K/mcL LAB HEMETOLOGY METHOD 02/29/2024 1:38 PM EST [facility] Immature Granulocytes Absolute 0.03 0.00 - 0.03 K/[facility] LAB HEMETOLOGY METHOD 02/29/2024 1:38 PM EST [facility] Blood Venous blood specimen / Unknown Venipuncture / Unknown 02/29/2024 12:02 PM EST 02/29/2024 1:18 PM EST us Vickeyfrederick Sharma MD LAB BLOOD ORDERABLES Final Resu lt [facility] [address] [place] [address], * (ABNORMAL) Protime-INR (02/29/2024 12:02 PM EST) Only the most recent of2 resultswithin the time period is included. Protime 22.2(H) 10.6 - 13.9 sec LAB COAGULATION METHOD 02/29/2024 1:39 PM EST [facility] INR 1.8 LAB COAGULATION METHOD 02/29/2024 1:39 PM EST [facility] Blood Venous blood specimen / Unknown Venipuncture / Unknown 02/29/2024 12:02 PM EST 02/29/2024 1:18 PM EST us Vickeyfrederick Sharma MD LAB BLOOD ORDERABLES Final Resu lt Performing Organization Address [facility]/ZIP Co de Phone Number [facility] [address] [place] [address], * hCG, serum, qualitative (02/29/2024 12:02 PM EST) Pathologist [facility] hCG Qual Negative Negative 02/29/2024 5:54 PM EST [facility] Blood Venous blood specimen / Unknown Venipuncture / Unknown 02/29/2024 12:02 PM EST 02/29/2024 1:18 PM EST Vickey Sharma MD LAB BLOOD ORDERABLES Final Resu lt Performing Organization Address [facility] de Phone Number [facility] [address] [place] [address], [place] [phone] * B-type natriuretic peptide (02/29/2024 12:02 PM EST) Only the most recent of2 resultswithin the time period is included. [facility] BNP 3 <=100 pcg/mL LAB CHEMISTRY METHOD 02/29/2024 2:05 PM EST [facility] Blood Venous blood specimen / Unknown Venipuncture / Unknown 02/29/2024 12:02 PM EST 02/29/2024 1:18 PM EST us Vickey Sharma MD LAB BLOOD ORDERABLES Final Resu lt Performing Organization Address [facility] Co de Phone Number [facility] [address] [place] [address], [place] [phone] * (ABNORMAL) Basic metabolic panel (02/29/2024 12:02 PM EST) Only the most recent of2 resultswithin the time period is included. [facility] Sodium 130(L) 133 - 145 mmol/L LAB CHEMISTRY METHOD 02/29/2024 1:46 PM EST [facility] Potassium 3.8 3.5 - 5.5 [...] MD LAB BLOOD ORDERABLES Final Resu lt [facility] [address] [place] [address], [place] [phone] * ECG 12 lead (02/29/2024 10:49 AM EST) Only the most recent of3 resultswithin the time period is included. Ventricular Rate ECG 104 BPM GEMUSE Atrial Rate 104 BPM GEMUSE P-R Interval 134 ms GEMUSE QRS Duration 90 ms GEMUSE Q-T Interval 364 ms GEMUSE QTc 478 ms GEMUSE P Wave [place] 38 degrees GEMUSE R [place] -16 degrees GEMUSE T [place] 21 degrees GEMUSE ECG Interpretation Sinus tachycardia [...] Signed Date: 02/23/2024 12:37 ET Workstation ID: [id number] Transcribed By: Self Edit Transcribed Date: 02/23/2024 [...] Signed Date: 02/23/2024 12:37 ET Workstation ID: [id number] Transcribed By: Self Edit Transcribed Date: 02/23/2024 12:30 ET us Venancio Kaye MD CV VASCULAR PROCEDURES Yeu l Result * (ABNORMAL) C-reactive protein (02/23/2024 9:23 AM EST) Only the most recent of2 resultswithin the time period is included. C-Reactive Protein 1.38(H) <=0.50 mg/dL LAB CHEMISTRY METHOD 02/23/2024 10:12 AM EST [facility] Blood Venous blood specimen / Unknown Venipuncture / Unknown 02/23/2024 9:23 AM EST 02/23/2024 9:27 AM EST Senia Ulloa NP LAB BLOOD ORDERABLES Final Res ult Performing Organization Address City/[facility]/ZIP Co de Phone Number [facility] [address] [place] [address], [place] [phone] * Lavender tube (02/23/2024 9:21 AM EST) [facility] Extra Tube Hold for add-ons. 02/23/2024 11:02 AM EST [facility] Comment:Auto resulted. Blood Venous blood specimen / Unknown Venipuncture / Unknown 02/23/2024 9:21 AM EST 02/23/2024 9:27 AM EST Pamela Sommer MD LAB BLOOD ORDERABLES Fin al Result Performing Organization Address [facility]/ZIP Co de Phone Number [facility] [address] [place] [address], [place] [phone] * (ABNORMAL) Activated Partial Thromboplastin Time - STAT (02/23/2024 7:31 AM EST) [facility] aPTT 42.3(H) 24.1 - 39.3 sec LAB COAGULATION METHOD 02/23/2024 8:21 AM EST [facility] Blood Venous blood specimen / Unknown Venipuncture / Unknown 02/23/2024 7:31 AM EST 02/23/2024 7:52 AM EST Venancio Kaye MD LAB BLOOD ORDERABLES Final Result Performing Organization Address City/[facility]/ZIP Co de Phone Number [facility] [address] [place] [address], [place] [phone] * Respiratory virus panel molecular study (02/23/2024 12:36 AM EST) [facility] Adenovirus Detection by PCR Not Detected Not Detected LAB MICROBIOLOGY METHOD 02/23/2024 1:45 AM EST [facility] Influenza A PCR Not Detected Not Detected LAB MICROBIOLOGY METHOD 02/23/2024 1:45 AM EST [facility] Influenza B PCR Not Detected Not Detected LAB MICROBIOLOGY METHOD 02/23/2024 1:45 AM EST [facility] Coronavirus 229E Not Detected Not Detected LAB MICROBIOLOGY METHOD 02/23/2024 1:45 AM [facility] Coronavirus HKU1 Not Detected Not Detected LAB MICROBIOLOGY METHOD 02/23/2024 1:45 AM [facility] Coronavirus OC43 Not Detected Not Detected LAB MICROBIOLOGY METHOD 02/23/2024 1:45 AM [facility] Coronavirus NL63 Not Detected Not Detected LAB MICROBIOLOGY METHOD 02/23/2024 1:45 AM [facility] Parainfluenza Virus 1 Not Detected Not Detected LAB MICROBIOLOGY METHOD 02/23/2024 1:45 AM [facility] Parainfluenza Virus 2 Not Detected Not Detected LAB MICROBIOLOGY METHOD 02/23/2024 1:45 AM [facility] Parainfluenza Virus 3 Not Detected Not Detected LAB MICROBIOLOGY METHOD 02/23/2024 1:45 AM [facility] Parainfluenza Virus 4 Not Detected Not Detected LAB MICROBIOLOGY METHOD 02/23/2024 1:45 AM [facility] RSV PCR Not Detected Not Detected LAB MICROBIOLOGY METHOD 02/23/2024 1:45 AM [facility] Human Metapneumovirus A and B Not Detected Not Detected LAB MICROBIOLOGY METHOD 02/23/2024 1:45 AM [facility] Rhinovirus/Entero virus Not Detected Not Detected LAB MICROBIOLOGY METHOD 02/23/2024 1:45 AM [facility] Bordetella pertussis Not Detected Not Detected LAB MICROBIOLOGY METHOD 02/23/2024 1:45 AM [facility] Bordetella parapertussis Not Detected Not Detected LAB MICROBIOLOGY METHOD 02/23/2024 1:45 AM EST [facility] Mycoplasma pneumo by PCR Not Detected Not Detected LAB MICROBIOLOGY METHOD 02/23/2024 1:45 AM EST [facility] Chlamydia pneumoniae Not Detected Not Detected LAB MICROBIOLOGY METHOD 02/23/2024 1:45 AM EST [facility] SARS COV-2 Not Detected Not Detected LAB MICROBIOLOGY METHOD 02/23/2024 1:45 AM EST [facility] Swab Nasopharyngeal structure / Unknown Non-blood Collection / Unknown 02/23/2024 12:36 AM EST 02/23/2024 12:49 AM EST [facility] - 02/23/2024 1:45 AM EST Testing was performed using the [employer] Respiratory Pathogen PCR Assay. All results must [...] MICROBIOLOGY - GENERA L ORDERABLES Final Result [facility] [address] [place] [address], * (ABNORMAL) D-dimer, quantitative (02/23/2024 12:26 AM EST) D-Dimer, Quant (D-DU) 309(H) <=230 ng/mL DDU LAB COAGULATION METHOD 02/23/2024 1:29 AM EST [facility] Blood Venous blood specimen / Unknown Venipuncture / Unknown 02/23/2024 12:26 AM EST 02/23/2024 12:49 AM EST [facility] - 02/23/2024 1:29 AM EST D-Dimer <230 ng/mL (D-Dimer units) is the threshold for exclusion of DVT/PE. D-Dimer may be elevated in: Critically ill, severely infected, trauma patients, DIC, acute CVA, acute PA, unstable angina, AF, old age, , and smoking. D-Dimer may be decreased with: Initiation of heparin therapy and oral anticoagulants. Pamela Sommer MD LAB BLOOD ORDERABLES Fin al Result [facility] [address] [place] [address], * Procalcitonin (02/22/2024 8:55 PM EST) Procalcitonin 0.03 <=0.16 ng/mL LAB CHEMISTRY METHOD 02/23/2024 10:13 AM EST [facility] Blood Venous blood specimen / Unknown Venipuncture / Unknown 02/22/2024 8:55 PM EST 02/22/2024 9:03 PM EST Narrative [facility] - 02/23/2024 10:13 AM EST [...] BLOOD ORDERABLES Final Result Performing Organization Address City/[facility]/ZIP Co de Phone Number [facility] [address] [place] [address], [place] [phone] * (ABNORMAL) Magnesium (02/22/2024 8:55 PM EST) [facility] Magnesium 1.8(L) 1.9 - 2.6 mg/dL LAB CHEMISTRY METHOD 02/22/2024 9:30 PM EST [facility] Blood Venous blood specimen / Unknown Venipuncture / Unknown 02/22/2024 8:55 PM EST 02/22/2024 9:03 PM EST [facility] BLOOD ORDERABLES Yue l Result Performing Organization Address [facility]/ZIP Co de Phone Number [facility] [address] [place] [address], [place] [phone] * Lipase (02/22/2024 8:55 PM EST) [facility] Lipase 34 13 - 75 unit/L LAB CHEMISTRY METHOD 02/22/2024 9:30 PM EST [facility] Blood Venous blood specimen / Unknown Venipuncture / Unknown 02/22/2024 8:55 PM EST 02/22/2024 9:03 PM EST [facility] LAB BLOOD ORDERABLES Yue l Result Performing Organization Address City/[facility]/ZIP Co de Phone Number [facility] [address] [place] [address], [place] [phone] * (ABNORMAL) Comprehensive metabolic panel (02/22/2024 8:55 PM EST) [facility] Sodium 136 133 - 145 mmol/L LAB CHEMISTRY METHOD 02/22/2024 9:30 PM EST [facility] Potassium 3.8 3.5 - 5.5 mmol/L LAB CHEMISTRY METHOD 02/22/2024 9:30 PM [facility] Chloride 103 96 - 110 mmol/L LAB CHEMISTRY METHOD 02/22/2024 9:30 PM [facility] CO2 29 21 - 32 mmol/L LAB CHEMISTRY METHOD 02/22/2024 9:30 PM [facility] Anion Gap 4 3 - 11 LAB CHEMISTRY METHOD 02/22/2024 9:30 PM [facility] Glucose 139(H) 70 - 100 mg/dL LAB CHEMISTRY METHOD 02/22/2024 9:30 PM [facility] BUN 10 5 - 25 mg/dL LAB CHEMISTRY METHOD 02/22/2024 9:30 PM [facility] Creatinine 1.10 0.50 - 1.10 mg/dL LAB CHEMISTRY METHOD 02/22/2024 9:30 PM [facility] eGFR 63 >=60 mL/min/1. 73m2 LAB CHEMISTRY METHOD 02/22/2024 9:30 PM [facility] Comment:Calculation based on the??Chronic Kidney Disease Epidemiology Collaboration (CKD-EPI) equation refit??without adjustment for race. BUN/Creatinine Ratio 9.1 LAB CHEMISTRY METHOD 02/22/2024 9:30 PM [facility] Calcium 8.7 8.5 - 10.5 mg/dL LAB CHEMISTRY METHOD 02/22/2024 9:30 PM [facility] AST (SGOT) 23 10 - 42 unit/L LAB CHEMISTRY METHOD 02/22/2024 9:30 PM [facility] ALT (SGPT) 44 10 - 60 unit/L LAB CHEMISTRY METHOD 02/22/2024 9:30 PM [facility] Alkaline Phosphatase 95 42 - 121 unit/L LAB CHEMISTRY METHOD 02/22/2024 9:30 PM [facility] Total Protein 7.3 6.0 - 8.0 g/dL LAB CHEMISTRY METHOD 02/22/2024 9:30 PM [facility] Albumin 3.3 3.2 - 5.0 g/dL LAB CHEMISTRY METHOD 02/22/2024 9:30 PM EST [facility] Total Bilirubin 0.3 0.0 - 1.4 mg/dL LAB CHEMISTRY METHOD 02/22/2024 9:30 PM EST [facility] Blood Venous blood specimen / Unknown Venipuncture / Unknown 02/22/2024 8:55 PM EST 02/22/2024 9:03 PM EST Anahi Cavazosny Fercho DO LAB BLOOD ORDERABLES Yue l Result [facility] [address] [place] [address], * Cervical Cancer Screening: HPV (08/26/2021) Pathologist [facility] Cervical Cancer Screening: HPV abstracted, negative Historical [...] currently active code status orders. Care Teams Associate Merchandise Planner Relationship Specialty Start Date End Date Lynne Jean MD PCP - General Endocrinology 02/29/24
--- OUTSIDE RECORDS SUMMARY | 2024-04-05 17:00 | XMS_ITS | Encounter Summary ---
Author Organization [facility] Address [address] [place] [address] Care Team Providers Care Sider Name Role Phone Lynne Ramos MD Primary Care Provider Suzi Anthony PA-C Unavailable Unavailable Venancio Brown MD Unavailable [phone] Reason for Visit * Reason Comments E-prescribe Rx Request Encounter Details Date Type Department Care Team Description 09/05/2023 Refill OBGYN - [place] [address] [place] [id number] Wesley Riddle DO E-prescribe Rx Request Social History Tobacco Use Types Packs/Day Years [...] encounter Miscellaneous Notes * Telephone Encounter - Nisha Hollis - 09/05/2023 4:37 PM EDT WHEN WAS THE PATIENTS LAST ANNUAL FOREST LOGISTICS MANAGER EXAM? 08/26/21 Does patient have an upcoming appointment? Yes 02/05/24 (THE MEDICATION REQUESTED IS ON THE MED LIST ABOVE) Did you check the Pharmacy information above?: YES Indicate how soon the patient needs the script: BY THE END OF THE DAY Patient would like script to be: E-PRESCRIBED/FAXED TO PHARMACY Is the doctor here today?: NO Can the message wait until the doctor returns?: NO Has the patient been told that the prescription will not be filled until the end of the day? NO Payor: [employer] / Plan: POS $ RUPERTO MACIEL [id number] JENA TRADITNAL / Product Type: POS [id number] documented in this encounter Plan of Treatment Not on file documented as of this encounter Visit Diagnoses Not on filedocumented in this encounter Care Teams Sider Relationship Specialty Start Date End Date Lynne Ramos MD PCP - General Internal Medicine 01/06/22 Suzi Kelly PA-C Specialist Internal Medicine 01/06/22 Venancio Brown MD [address] [place] [address] Specialist Cardiovascular Disease 01/06/22 documented as of this encounter
--- OUTSIDE RECORDS SUMMARY | 2024-04-05 17:00 | XMS_ITS | Encounter Summary ---
Author Organization [facility] Address [address] [place] [address] Care Team Providers Care Clinical Education Coordinator Name Role Phone Lynne Ramos MD Primary Care Provider Eileen Diaz MD Primary Care Provider [facility], Pcp Primary Care Provider Lynne Seaman MD Primary Care Provider Suzi Anthony PA-C Unavailable Unavailable Venancio Brown MD Unavailable [phone] Encounter Details Date Type Department Care Team Description 08/17/2016 [facility] Medical Records [address] [place] [address] Kadeem Godoy [facility] Social History Tobacco Use Types Packs/Day Years [...] on filedocumented in this encounter Care Teams Clinical Education Coordinator Relationship Specialty Start Date End Date Lynne Ramos MD PCP - General Internal Medicine 03/23/16 05/03/20 Eileen Aleman MD PCP - General Internal Medicine 05/04/20 09/14/21 [facility] PCP - General Internal Medicine 09/15/21 01/05/22 Lynne Ramos MD PCP - General Internal Medicine 01/06/22 Suzi Kelly PA-C Specialist Internal Medicine 01/06/22 Venancio Brown MD [address] [place] [address] Specialist Cardiovascular Disease 01/06/22 documented as of this encounter
--- OUTSIDE RECORDS SUMMARY | 2024-04-05 17:00 | XMS_ITS | Encounter Summary ---
Author Organization [facility] Address [address] [place] [address] Care Team Providers Care Meat Molder Name Role Phone Lynne Ramos MD Primary Care Provider Eileen Diaz MD Primary Care Provider [facility], Pcp Primary Care Provider Lynne Seaman MD Primary Care Provider Suzi Anthony PA-C Unavailable Unavailable Venancio Brown MD Unavailable [phone] Encounter Details Date Type Department Care Team Description 08/18/2016 Pt. Non Urgent Medical Question Medicine/Pediatrics - [address] [address] Lynne Ramos MD Social History Tobacco Use [...] as of this encounter Progress Notes * Obdulia Almaguer M.A. - 08/18/2016 1:54 PM EDTFrom: Juan A Ferreira To: Lynne Jean MD Sent: 08/18/2016 1:52 PM EDT Subject: Follow up I am just following up to the Espressi message I sent to Dr Jean 08/17 about med changes. Thanks documented in this encounter Plan of Treatment Not on file documented as of this encounter Visit Diagnoses Not on filedocumented in this encounter Care Teams Meat Molder Relationship Specialty Start Date End Date Lynne Ramos MD PCP - General Internal Medicine 03/23/16 05/03/20 Eileen Aleman MD PCP - General Internal Medicine 05/04/20 09/14/21 [facility], [facility] PCP - General Internal Medicine 09/15/21 01/05/22 Lynne Ramos MD PCP - General Internal Medicine 01/06/22 Suzi Kelly PA-C Specialist Internal Medicine 01/06/22 Venancio Brown MD [address] [place] [address] Specialist Cardiovascular Disease 01/06/22 documented as of this encounter
--- OUTSIDE RECORDS SUMMARY | 2024-04-05 17:00 | XMS_ITS | Encounter Summary ---
Author Organization [facility] Address [address] [place] [address] Care Team Providers Care Sole Buffer Name Role Phone Community, Pcp Primary Care Provider Lynne Seaman MD Primary Care Provider Suzi Anthony PA-C Unavailable Unavailable Venancio Brown MD Unavailable [phone] Encounter Details Date Type Department Care Team Description 11/09/2021 [facility] Neurosurgery [place] [address] [id number] Jimbo Galeano PA-C [address] [address] Social History Tobacco Use Types Packs/Day Years [...] on filedocumented in this encounter Care Teams Sole Buffer Relationship Specialty Start Date End Date Community, Pcp PCP - General Internal Medicine 09/15/21 01/05/22 Lynne Ramos MD PCP - General Internal Medicine 01/06/22 Suzi Kelly PA-C Specialist Internal Medicine 01/06/22 Venancio Brown MD [address] [address] Specialist Cardiovascular Disease 01/06/22 documented as of this encounter
--- OUTSIDE RECORDS SUMMARY | 2024-04-05 17:00 | XMS_ITS | Encounter Summary ---
Author Organization [facility] Address [address] [place] [address] Care Team Providers Care Vibrating Screen Operator Name Role Phone Lynne Ramos MD Primary Care Provider Eileen Diaz MD Primary Care Provider [facility], Pcp Primary Care Provider Lynne Seaman MD Primary Care Provider Suzi Anthony PA-C Unavailable Unavailable Venancio Brown MD Unavailable [phone] Encounter Details Date Type Department Care Team Description 10/18/2017 Javascript Programmer Report Medical Records [address] [place] [id number] Jimbo Galeano PA-C [address] [place] [address] [address] [place] [address] Social History Tobacco Use Types Packs/Day Years [...] on filedocumented in this encounter Care Teams Vibrating Screen Operator Relationship Specialty Start Date End Date Lynne Ramos MD PCP - General Internal Medicine 03/23/16 05/03/20 Eileen Aleman MD PCP - General Internal Medicine 05/04/20 09/14/21 [facility], Pcp PCP - General Internal Medicine 09/15/21 01/05/22 Lynne Ramos MD PCP - General Internal Medicine 01/06/22 Suzi Kelly PA-C Specialist Internal Medicine 01/06/22 Venancio Brown MD [address] [address] Specialist Cardiovascular Disease 01/06/22 documented as of this encounter
--- OUTSIDE RECORDS SUMMARY | 2024-04-05 17:00 | XMS_ITS | Encounter Summary ---
Author Organization [facility] Address [address] [place] [address] Care Team Providers Care Design Architect Name Role Phone Lynne Ramos MD Primary Care Provider Eileen Diaz MD Primary Care Provider Spring cruz [facility], Pcp Primary Care Provider Lynne Seaman MD Primary Care Provider Suzi Anthony PA-C Unavailable Unavailable Venancio Brown MD Unavailable [phone] Encounter Details Date Type Department Care Team Description 09/13/2017 [facility] Medical Records [address] [place] [address] Abstract, Provider Social History Tobacco Use Types [...] on filedocumented in this encounter Care Teams Design Architect Relationship Specialty Start Date End Date Lynne Ramos MD PCP - General Internal Medicine 03/23/16 05/03/20 Eileen Aleman MD PCP - General Internal Medicine 05/04/20 09/14/21 [facility], Pcp PCP - General Internal Medicine 09/15/21 01/05/22 Lynne Ramos MD PCP - General Internal Medicine 01/06/22 Suzi Kelly PA-C Specialist Internal Medicine 01/06/22 Venancio Brown MD [address] [place] [address] Specialist Cardiovascular Disease 01/06/22 documented as of this encounter
--- OUTSIDE RECORDS SUMMARY | 2024-04-05 17:00 | XMS_ITS | Encounter Summary ---
Author Organization [facility] Address [address] [place] [address] Care Team Providers Care Loom Fixer Name Role Phone Lynne Ramos MD Primary Care Provider Eileen Diaz MD Primary Care Provider Spring cruz [facility], Pcp Primary Care Provider UnavailLynne Barnes MD Primary Care Provider Suzi Anthony PA-C Unavailable Unavailable Venancio Brown MD Unavailable [phone] Encounter Details Date Type Department Care Team Description 03/08/2017 Release of Information Medical Records [address] [place] [address] Abstract, Provider Social History Tobacco Use Types [...] on filedocumented in this encounter Care Teams Loom Fixer Relationship Specialty Start Date End Date Lynne Ramos MD PCP - General Internal Medicine 03/23/16 05/03/20 Eileen Aleman MD PCP - General Internal Medicine 05/04/20 09/14/21 [facility], Pcp PCP - General Internal Medicine 09/15/21 01/05/22 Lynne Ramos MD PCP - General Internal Medicine 01/06/22 Suzi Kelly PA-C Specialist Internal Medicine 01/06/22 Venancio Brown MD [address] [place] [address] Specialist Cardiovascular Disease 01/06/22 documented as of this encounter
--- OUTSIDE RECORDS SUMMARY | 2024-04-05 17:00 | XMS_ITS | Encounter Summary ---
Author Organization [facility] Address [address] [place] [address] Care Team Providers Care Ict Customer Support Officer Name Role Phone Community, Pcp Primary Care Provider UnavailLynne Barnes MD Primary Care Provider UnavailSuzi Guzman PA-C Unavailable Unavailable Venancio Brown MD Unavailable [phone] Encounter Details Date Type Department Care Team Description 11/11/2021 Release of Information Medical Records [address] [place] [id number] Abstract, Provider Social History Tobacco Use Types [...] on filedocumented in this encounter Care Teams Ict Customer Support Officer Relationship Specialty Start Date End Date Community, Pcp PCP - General Internal Medicine 09/15/21 01/05/22 Lynne Ramos MD PCP - General Internal Medicine 01/06/22 Suzi Kelly PA-C Specialist Internal Medicine 01/06/22 Venancio Brown MD [address] [place] [address] Specialist Cardiovascular Disease 01/06/22 documented as of this encounter
--- OUTSIDE RECORDS SUMMARY | 2024-04-05 17:01 | XMS_ITS | Clinical Summary ---
Author Organization [facility] Address [address] [place] [address] Care Team Providers Care Airplane Fueler Name Role Phone Lynne Ramos MD Primary Care Provider Suzi Anthony PA-C Unavailable Unavailable Venancio Brown MD Unavailable [phone] Allergies Active Allergy Reactions Severity Noted Date Comments Sulfa Drugs Rash/Dermatitis 03/23/2016 Tramadol Nausea and Vomiting,Headaches 2016 Venlafaxine Nausea and Vomiting 03/23/2016 Medications Medication Sig Dispensed Refills Start Date End Date Status SPACER DEVICE-ADULT Use as directed. 1 Device 0 05/13/2016 Active ketotifen (ALAWAY) 0.025 % ophthalmic solution Place 1 Drop into both eyes 2 times daily for 10 days. 5 mL 5 06/06/2017 Active loratadine (CLARITIN) 10 MG tablet TAKE 1 TABLET BY MOUTH DAILY. 90 Tab 1 05/25/2018 Active albuterol (PROVENTIL) (2.5 MG/3ML) 0.083% nebulizer solution Take 1 Vial by nebulization every 4 hours as needed for Wheezing for up to 180 days. 50 Vial 0 05/06/2019 Active betamethasone valerate (VALISONE) 0.1 % ointment APPLY 1 G TO AFFECTED AREA DAILY NEEDED. 30 g 0 02/17/2020 Active fluticasone (Flonase) 50 MCG/ACT nasal spray Use 2 spray per nostril daily. 1 Bottle 11 05/22/2020 Active ondansetron (Zofran) 4 MG tablet Take 1 tablet by mouth every 8 hours as needed for Nausea. 60 tablet 5 10/21/2020 Active atorvastatin (LIPITOR) 20 MG tablet TAKE 1 TABLET BY MOUTH EVERY DAY 90 tablet 1 02/26/2021 Active ALBUTEROL SULFATE 108 (90 Base) MCG/ACT Aero Soln Inhale 2 Puffs into the lungs every 4 hours as needed for Cough, Wheezing or Shortness of Breath. 8.5 g 1 05/12/2021 Active fluticasone (FLOVENT HFA) 110 MCG/ACT inhaler Inhale 1 Puff into the lungs 2 times daily. 12 g 2 05/12/2021 Active buPROPion (WELLBUTRIN SR) 200 MG 12 hr tablet Take 1 Tablet by mouth 2 times daily. 180 Tablet 1 05/21/2021 Active diazepam (Valium) 5 MG tabletIndicatio ns:DDD (degenerative disc disease), cervical Take 1 Tablet by mouth every 8 hours as needed (muscle spasm). 28 Tablet 0 08/02/2021 Active clotrimazole-be tamethasone (LOTRISONE) cream Apply topically as needed 90 g 3 08/06/2021 Active montelukast (SINGULAIR) 10 MG tablet Take 1 Tablet by mouth at bedtime. 90 Tablet 1 08/06/2021 Active oxycodone (ROXICODONE) 5 MG immediate release tabletIndicatio ns:DDD (degenerative disc disease), cervical Take 1 Tablet by mouth every 12 hours as needed for Pain. 56 Tablet 0 08/13/2021 Active cyclobenzaprine (FLEXERIL) 10 MG tablet 0 11/01/2021 Active gabapentin (NEURONTIN) 300 MG capsule TAKE 1 -2 CAPSULES BY MOUTH 3 TIMES A DAY FOR 30 DAYS 0 11/03/2021 Active losartan-hydroc hlorothiazide (HYZAAR) 100-25 MG per tablet Take 1 Tablet by mouth daily. 0 Active Cholecalciferol (Vitamin D) 125 MCG (5000 UT) Cap Take 1 Capsule by mouth daily. 0 Active amlodipine (NORVASC) 5 MG tablet Take 1 Tablet by mouth daily for 180 days. 30 Tablet 5 01/07/2022 Active Colestipol HCl 1 g Tab Take 1 Tablet by mouth daily. 30 Tablet 3 06/15/2022 Active SPIRONOLACTONE OR Take by mouth 2 times daily. 0 Active METOPROLOL SUCCINATE OR Take by mouth 2 times daily. 0 Active Aspirin Low Dose 81 MG EC tablet TAKE 1 TABLET BY MOUTH DAILY 90 Tablet 0 01/25/2023 Active norethindrone (MICRONOR) 0.35 MG tablet TAKE 1 TABLET BY MOUTH EVERY DAY 84 Tablet 1 09/06/2023 Active lisinopril (PRINIVIL,ZESTR IL) 5 MG tablet Take 1 tablet by mouth daily for 180 days. 30 tablet 2 08/03/2020 2 Discontinued Active Problems Problem Noted Date Surveillance for control, oral con traceptives 08/06/2022 Last Assessment & Plan: History reviewed, no contraindications. Rx refilled x1 year. Elevated blood pressure reading 01/08/20 22 Abnormal EKG 01/07/2022 Cervical radiculopathy 11/09/2021 Last Assessment & Plan: Ms. Ferreira describes [...] us after the therapy. Irregular menses 08/28/2021 Last Assessment & Plan: Based on patient's history, symptoms may be related to Eveline's for which she is undergoing a work-up at this time. I have ordered labs for evaluation of PCOS as requested. Vulvar irritation 08/26/2021 Last Assessment & Plan: Vaginal culture collected, will treat as indicated. Vulvovaginal hygiene reviewed. Encouraged patient to stop using Dove soap and use only warm water. Skin lesion 08/26/2021 Last Assessment & Plan: Discussed using Bacitracin OTC. She was instructed to call if she develops redness surrounding the lesion, increasing pain or fevers/chills. 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 Morbid obesity with BMI of 40.0-44.9, ad ult 05/13/2018 Asthma, mild persistent 04/21/2018 Headache, unspecified headache type 02/06 Cerebral aneurysm, nonruptured 8 Overview: LOUIE Anxiety and depression Hypertension Uterine polyp Vitamin D deficiency Deficiency of vitamin B12 DDD (degenerative disc disease), cervica l Immunizations Name Administration Dates Next Due COVID-19 ([employer]) Pt Reported 03/29/2021, 021,01/26/2020 Hepatitis I-Pzyjh-Cfjvjiav + 08/23/2011 Influenza (> 6 Months) 11/23/2018 Influenza Vaccine-quadrivalent 4 Years Plus 10/08 Qynwbpt-Zoyba-Gxznfbjk + 08/23/2011 Wutyx-Cjsja-Srmwqqqi + 08/23/2011 Quantiferon Tb Gold Neg 05/24/2017 Roxrind-Ihwby-Nhvjxprr + 08/23/2011 TD (STATE SUPPLIED FOR ADULTS AND CHILDREN) 07/07 Tdap 10/22/2019,08/23/2011 Varicella Titre-Positive + 08/23/2011 Family History Medical History Relation Name Comments borderline personality d.o. Daughter 1 Giovanni vascular problems Father Cataract Mother Colon Polyps Mother pre cancerous Hypertension Mother hysterectomy Mother spinal Mother CA Breast Negative Hx CA Colon Negative Hx CA Ovarian Negative Hx CA Prostate Negative Hx Cancer of Small Bowel Negative Hx Cancer of the Pancreas Negative Hx Cancer of the Renal Cell Negative Hx Uterine Cancer Negative Hx Relation Name Status Comments Daughter 1 [...] 0 02/06/1994 - 01/20/2006 Smokeless Tobacco: Never Tobacco Cessation:Counseling Given: Not Answered Alcohol Use Standard Drinks/Week Comments Yes 0 (1 standard drink = 0.6 oz pur e alcohol) rare Sex Assigned at Date Recorded Female 05/21/2020 9:47 PM E DT Job Start Date Occupation Industry Not on file Not on file Not on file Last Filed Vital Signs Vital Sign Reading Time Taken Comments Blood Pressure 121/88 09/02/2022 10:08 AM EDT Pulse 92 09/02/2022 10:08 AM EDT Temperature 36.2 ??C (97.2 ??F) 09/02/2022 10:08 AM E DT Respiratory Rate 16 08/05/2022 2:57 PM EDT Oxygen Saturation 98% 09/02/2022 10:08 AM EDT Inhaled Oxygen Concentration - - Weight 127 kg (280 lb) 09/02/2022 10:08 AM EDT Height 162.6 cm (5' 4 ) 09/02/2022 10:08 AM EDT Body Mass Index 48.06 09/02/2022 10:08 AM EDT Plan of Treatment Health Maintenance Due Date Last Done Comments PNEUMOCOCCAL VACCINE FOR HIG H RISK PATIENTS (#1) 1996 BASELINE HEALTH EXAM 40-64 2017 MAMMOGRAM 2017 Covid-19 Vaccine (4 - 2022-2 4 season) 2023 03/29/2021, 02/18/2020, 01/26/2020 INFLUENZA (#1) 2023 11/23/2018, 11/01/2016 BMI CHECK/ADVISE 02/07/2024 08/26/2021, , 09/29/2020, Additional history exists CHOLESTEROL SCREENING 09/29/2025 09/29/2020 , 08/21/2020, 06/12/2020, Additional history exists CERVICAL CANCER SCREENING 08/26/2026 08/26/2021, DTAP/TDAP/TD (4 - Td or Tdap) 10/21/2029, 07/16/2018, 08/23/2011 Insurance Payer Benefit Plan / Group Subscriber ID Effective Dates Phone Address Type AETNA POS $20/30 RUPERTO MACIEL [id number] THNE TRADITNAL [id number] 2018-Prese nt [address] [place] [phone] POS Stw-prf-Mozy ice [place] [id number] 2022-Pres ent [place] [address] [place] [address] MEDICAID [id number] ICE Care Teams Airplane Fueler Relationship Specialty Start Date End Date Lynne Ramos MD PCP - General Internal Medicine 01/06/22 Suzi Kelly PA-C Specialist Internal Medicine 01/06/22 Venancio Brown MD [address] [place] [address] Specialist Cardiovascular Disease 01/06/22
--- OUTSIDE RECORDS SUMMARY | 2024-04-05 17:01 | XMS_ITS | Encounter Summary ---
Author Organization [facility] Address [address] [place] [address] Care Team Providers Care Destaticizer Feeder Name Role Phone Lynne Ramos MD Primary Care Provider Suzi Anthony PA-C Unavailable Unavailable Venancio Brown MD Unavailable [phone] Encounter Details Date Type Department Care Team Description 03/02/2022 [facility] Records [facility] Medical [facility] [address] [facility] [address] [place] [address] Jimenez Sinclair MD [address] [facility] [address] [place], [place] [id number] Social History Tobacco Use Types Packs/Day Years [...] suspected to have Coronavirus/COVID-19? No / Unsure 02/18/2022 1:26 PM EST documented as of this encounter Plan of Treatment Not on file documented as of this encounter Visit Diagnoses Not on filedocumented in this encounter Care Teams Destaticizer Feeder Relationship Specialty Start Date End Date Lynne Ramos MD PCP - General Internal Medicine 01/06/22 Suzi Kelly PA-C Specialist Internal Medicine 01/06/22 Venancio Brown MD [address] [place] [address] Specialist Cardiovascular Disease 01/06/22 documented as of this encounter
--- OUTSIDE RECORDS SUMMARY | 2024-04-05 17:01 | XMS_ITS | Encounter Summary ---
Author Organization [facility] Address [address] [place] [address] Care Team Providers Care Pen Ruler Operator Name Role Phone Eileen Aleman MD Primary Care Provider [facility], Pcp Primary Care Provider Lynne Seaman MD Primary Care Provider Suzi Anthony PA-C Unavailable Unavailable Venancio Brown MD Unavailable [phone] Encounter Details Date Type Department Care Team Description 10/08/2020 Refill Medicine/Pediatrics - [address] [phone] Ary Norris PA-C [address] [place] [address] Social History Tobacco Use Types Packs/Day Years [...] encounter Miscellaneous Notes * Telephone Encounter - Nilsa Maharaj M.A. - 10/08/2020 10:57 AM EDT Vy - 09/29/20 Nov - none Pt is due, csc reviewed, masspat below 09/09/2020 1 09/08/2020 OXYCODONE HCL 10 MG TABLET 20.0 5 KA O'M [id number] [facility] (7657) 0/0 60.0 [facility]ME Comm Ins [place] 09/04/2020 1 09/03/2020 OXYCODONE HCL 5 MG TABLET 118.0 20 EL ARM [id number] [facility] (7657) 0/0 44.25 [facility] Comm [place] 08/14/2020 1 08/13/2020 OXYCODONE HCL 5 MG TABLET 118.0 19 RE MOR [id number] [facility] (7657) 0/0 46.58 [facility] [place] 08/14/2020 1 08/13/2020 DIAZEPAM 5 MG TABLET 84.0 28 RE MOR [id number] [facility] (7657) 0/0 [place] Ins [place] 07/24/2020 1 07/24/2020 LORAZEPAM 0.5 MG TABLET 10.0 7 RE MOR [id number] [facility] (7657) 0/0 [place] Ins [place] 07/15/2020 1 07/14/2020 OXYCODONE HCL 5 MG TABLET 118.0 20 CH MIL [id number] [facility] (7657) 0/0 44.25 MME Comm Ins [place] 06/15/2020 1 06/12/2020 OXYCODONE HCL 5 MG TABLET 112.0 19 CH MIL [id number] [facility] (7657) 0/0 44.21 MME Comm Ins [place] 06/12/2020 1 06/12/2020 DIAZEPAM 5 MG TABLET 84.0 28 CH MIL [id number] [facility] (7657) 0/0 Comm Ins [place] 05/08/2020 2 05/08/2020 OXYCODONE HCL 5 MG TABLET 112.0 19 TE SVA [id number] [facility] (7657) 0/0 44.21 MME Comm Ins [place] 04/18/2020 2 04/17/2020 OXYCODONE HCL 5 MG TABLET 70.0 12 SA O'S [id number] [facility] (7657) 0/0 43.75 MMEComm Ins [place] 04/17/2020 2 04/17/2020 DIAZEPAM 5 MG TABLET 84.0 28 SA O'S [id number] [facility] (7657) 0/0 Comm Ins [place] documented in this encounter Plan of Treatment Not on file documented as of this encounter Visit Diagnoses Diagnosis DDD (degenerative disc disease), cervical Degeneration of cervical intervertebral disc documented in this encounter Care Teams Pen Ruler Operator Relationship Specialty Start Date End Date Eileen Aleman MD PCP - General Internal Medicine 05/04/20 09/14/21 [facility], Pcp PCP - General Internal Medicine 09/15/21 01/05/22 Lynne Ramos MD PCP - General Internal Medicine 01/06/22 Suzi Kelly PA-C Specialist Internal Medicine 01/06/22 Venancio Brown MD [address] [place] [address] Specialist Cardiovascular Disease 01/06/22 documented as of this encounter
--- OUTSIDE RECORDS SUMMARY | 2024-04-05 17:01 | XMS_ITS | Encounter Summary ---
Author Organization [facility] Address [address] [place] [address] Care Team Providers Care Lining Parts Sewer Name Role Phone Lynne Ramos MD Primary Care Provider Suzi Anthony PA-C Unavailable Unavailable Venancio Brown MD Unavailable [phone] Encounter Details Date Type Department Care Team Description 06/14/2022 Refill Gastroenterology - [place] [address] [facility] [address] [place] [id number] Gary De Jesus MD [address] [place] [address] Social History Tobacco Use Types Packs/Day Years [...] Miscellaneous Notes * Telephone Encounter - Sweetie Lo M.A. - 06/14/2022 2:42 PM EDT Vy - 06/26/2020 Nov - unknown documented in this encounter Plan of Treatment Not on file documented as of this encounter Visit Diagnoses Not on filedocumented in this encounter Care Teams Lining Parts Sewer Relationship Specialty Start Date End Date Lynne Ramos MD PCP - General Internal Medicine 01/06/22 Suzi Kelly PA-C Specialist Internal Medicine 01/06/22 Venancio Brown MD [address] [place] [address] Specialist Cardiovascular Disease 01/06/22 documented as of this encounter
--- OUTSIDE RECORDS SUMMARY | 2024-04-05 17:01 | XMS_ITS | Encounter Summary ---
Author Organization [facility] Address [address] [place] [address] Care Team Providers Care Respiratory Coordinator Name Role Phone Eileen Aleman MD Primary Care Provider [facility], Pcp Primary Care Provider Lynne Seaman MD Primary Care Provider Suzi Anthony PA-C Unavailable Unavailable Venancio Brown MD Unavailable [phone] Reason for Visit * Reason Comments E-prescribe Rx Request Encounter Details Date Type Department Care Team Description 09/13/2020 Refill General Surgery - [place] [address] [facility] [address] [place] [phone] Marian Britton MD [address] [facility] [place] [address] [place] [phone] E-prescribe Rx Request Social History Tobacco Use [...] or suspected to have Coronavirus / COVID-19? No / Unsure 08/20/2020 7:26 AM EDT documented as of this encounter Plan of Treatment Not on file documented as of this encounter Visit Diagnoses Not on filedocumented in this encounter Care Teams Respiratory Coordinator Relationship Specialty Start Date End Date Eileen Aleman MD PCP - General Internal Medicine 05/04/20 09/14/21 [facility] Pcp PCP - General Internal Medicine 09/15/21 01/05/22 Lynne Ramos MD PCP - General Internal Medicine 01/06/22 Suzi Kelly PA-C Specialist Internal Medicine 01/06/22 Venancio Brown MD [address] [place] [address] Specialist Cardiovascular Disease 01/06/22 documented as of this encounter
--- OUTSIDE RECORDS SUMMARY | 2024-04-05 17:01 | XMS_ITS | Encounter Summary ---
Author Organization [facility] Address [address] [place] [address] Care Team Providers Care White Mixing Operator Name Role Phone Eileen Aleman MD Primary Care Provider [facility], Pcp Primary Care Provider Lynne Seaman MD Primary Care Provider Suzi Anthony PA-C Unavailable Unavailable Venancio Brown MD Unavailable [phone] Reason for Visit * Reason Onset Date Comments BP-Quality 09/02/2020 Encounter Details Date Type Department Care Team Description 09/02/2020 Telephone Medicine/Pediatrics - [address] [phone] Eileen Aleman MD BP-Quality Social History Tobacco Use Types Packs/Day Years [...] encounter Miscellaneous Notes * Telephone Encounter - Jael Langston - 09/02/2020 3:30 PM EDT Patient calling just to give Ary an update on her BP. Has been monitoring at home and been verywell. Yesterday was 115/77 and today was 104/80-which has been the normal readings daily. Just an FYI. She has her foot surgery scheduled for next week, but after that she will call and book a BP f/uwith Ary documented in this encounter Plan of Treatment Not on file documented as of this encounter Visit Diagnoses Not on filedocumented in this encounter Care Teams White Mixing Operator Relationship Specialty Start Date End Date Eileen Aleman MD PCP - General Internal Medicine 05/04/20 09/14/21 [facility] PCP - General Internal Medicine 09/15/21 01/05/22 Lynne Ramos MD PCP - General Internal Medicine 01/06/22 Suzi Kelly PA-C Specialist Internal Medicine 01/06/22 Venancio Brown MD [address] [place] [address] Specialist Cardiovascular Disease 01/06/22 documented as of this encounter
--- OUTSIDE RECORDS SUMMARY | 2024-04-05 17:01 | XMS_ITS | Encounter Summary ---
Author Organization [facility] Address [address] [place] [address] Care Team Providers Care It Administrative Assistant Name Role Phone Lynne Ramos MD Primary Care Provider Suzi Anthony PA-C Unavailable Unavailable Venancio Brown MD Unavailable [phone] Encounter Details Date Type Department Care Team Description 01/21/2022 Pt. Non Urgent Medical Question Cardio PVC POC 154 [address] [facility] [address] [place] [address] Venancio Brown MD [address] [facility] [address] [place] [address] Social History Tobacco Use Types Packs/Day Years [...] encounter Miscellaneous Notes * Telephone Encounter - Clemencia Rossi RN - 01/21/2022 2:32 PM ESTFrom: Juan A Ferreira To: Darleen Brown Sent: 01/21/2022 2:23 PM EST Subject: Stress echo Hi Dr Brown, I received information in the mail about the stress echo. I know some things have changed since that was scheduled and just wanted to confirm that you and Dr Dockery discussed this and agreed to hold off pending the pheochromocytoma work up? Thank you, Juan A documented in this encounter Plan of Treatment Not on file documented as of this encounter Visit Diagnoses Not on filedocumented in this encounter Care Teams It Administrative Assistant Relationship Specialty Start Date End Date Lynne Ramos MD PCP - General Internal Medicine 01/06/22 Suzi Kelly PA-C Specialist Internal Medicine 01/06/22 Venancio Brown MD [address] [place] [address] Specialist Cardiovascular Disease 01/06/22 documented as of this encounter
== END 2024-04-05 16:48 | disposition home or self-care (01) ==
LOC: HO.HMCFM 14:49
PROVIDERS: PCP Internal Medicine; Visit Provider Internal Medicine
DX: I26.94 Multiple subsegmental thrombotic pulmonary emboli without acute cor pulmonale (principal); I10 Essential (primary) hypertension

== ENCOUNTER → 2024-04-10 14:41 | Outpatient (REF) | payer OTHER, SELFPAY ==
--- NOTE | 2024-04-10 14:47 | CA_ITS ---
Transthoracic Echocardiogram Patient (Last, First, Middle): Juan A Ferreira, Gender: Female Date of : 1975 Age: 48 Procedure Date: 04/10/2024 Procedure Type: Transthoracic Echocardiogram Location: OP Height: 165.1 cm Weight: 122.47 kg BSA: 2.25 m2 Heart Rate: bpm BP: 140 / 82 mmHg National Recruiter: TO Referring MD: Sweetie Barnhart PRODUCTION LINE ASSEMBLERDoug Symptoms: I26.94 - Multiple subsegmental thrombotic pulmonary emboli without acute... Study Quality: Fair, contrast Conclusions: - 1. Normal LV ejection fraction 55-60% with grade 1 diastolic dysfunction 2. Normal cardiac valvular Dopplers 3. No gross pericardial effusion Findings Procedure Information Contrast agent, definity, is being given per protocol without apparent complications. Left Ventricle Normal left ventricular size, thickness, and systolic function. The visually estimated ejection fraction is between 55-60%. Spectral Doppler is indicative of an impaired relaxation filling pattern. E/E prime ratio is <8, consistent with normal filling pressures. Evidence suggests grade I (mild) diastolic dysfunction. There is mild septal asymmetric hypertrophy. Right Ventricle Normal right ventricular cavity size and systolic function. Atria The left atrium is likely dilated. Interatrial shunt cannot be excluded. The right atrium was not well visualized. Aortic Valve Normal aortic valve structure and function. There is no aortic valve stenosis. There is no aortic valve regurgitation. Mitral Valve Normal mitral valve structure and function. There is trace mitral valve regurgitation. There is no mitral valve stenosis. Pulmonic Valve The pulmonic valve was not well visualized. Tricuspid Valve Likely normal tricuspid valve structure and function. Tricuspid regurgitation envelope is inadequate for calculation of right ventricular systolic pressure. Normal right atrial pressure. Great Vessels All visible segments of the aorta are normal in size. The pulmonary artery was not well visualized. There is no dilatation of the ascending aorta measuring 3.10 cm. Venous The inferior vena cava is normal in size and collapses greater than 50% with inspiration. Pericardium/Pleural There is no evidence of pericardial effusion. Prior Study Comparison No prior study available for comparison. Measurements 2D Linear Measurements IVSd: 1.31 0.6-0.9/0.6-1.0 cm LVIDd: 4.62 3.9-5.3/4.2-5.9 cm LVIDd Index: 2.05 2.4-3.2/2.2-3.1 cm/m2 LVIDs: 2.93 2.0-3.6 cm LVPWd: 0.95 0.7-1.1 cm LA Diam: 3.90 2.7-3.8/3.0-4.0 cm LAIDs Index: 1.73 1.5-2.3 cm/m2 LV Mass: 235.84 67-162/88-224 g LV Mass Index: 104.82 43-95/49-115 g/m2 LVOT Diam: 2.00 3.0+(-)1.3 cm 2D Systolic Function EF 4C: 54.50 >55% EF 2C: 58.50 >55% EF BiP: 57.40 >55% Mitral Valve MV Pk E: 0.54 MV PK A: 0.52 MV Decel Time: 175.00 E/A: 1.00 E'Lateral: 7.83 E'Medial: 5.44 E/E' Med: 9.90 E/E' Lat: 6.80 PHT: 51.00 MVA PHT: 4.31 Decel Dewitt: 3.07 Aortic Valve AoV Pk Dhaval: 1.54 AoV Mn Dhaval: 1.07 AoV VTI: 0.31 AoV Pk Grad: 9.00 Aov Mn Grad: 5.00 ETELVINA Cont.VTI: 2.16 LVOT LVOT Pk Dhaval: 1.01 LVOT Mn Dhaval: 0.72 LVOT VTI: 0.21 LVOT Pk Grad: 4.00 LVOT Mn Grad: 2.00 LVOT Diam: 2.00 LVOT Area: 3.14 Diastolic Function MV Pk E: 0.54 MV Pk A: 0.52 E/A: 1.00 E'Medial: 5.44 E/E' Med: 9.90 E' Laterial: 7.83 E/E' Lat: 6.80 Right Ventricle TAPSE (mm): 22.60 TVS' Dhaval: 12.50 Tricuspid Valve TR Pk Dhaval: 2.28 TR Pk Grad: 21.00 Great Vessels Aorta Sinus of Valsalva: 3.04 2.0-3.5 cm Ao Asc: 3.10 2.1-3.4 cm Updated in Other Vendor System with Status of Final Leonard Miranda MD electronically signed on 04/11/2024 4:22:18 PM with status of Final
--- OUTSIDE RECORDS SUMMARY | 2024-04-10 17:44 | XMS_ITS | Encounter Summary ---
Author Organization [facility] Address [address] [place] [address] Care Team Providers Care Tax Consultant Name Role Phone Lynne Ramos MD Primary Care Provider Eileen Diaz MD Primary Care Provider [facility], Pcp Primary Care Provider Lynne Seaman MD Primary Care Provider Suzi Anthony PA-C Unavailable Unavailable Venancio Brown MD Unavailable Encounter Details Date Type Department Care Team Description 11/30/2019 Pt. Non Urgent Medical Question Pulmonology - [place] [address] [facility] [address] [place] [phone] Radha Ruiz MD [address] [place] [phone] Social History Tobacco Use Types Packs/Day Years [...] have Coronavirus / COVID-19? Unable to assess 11/21/2019 7:35 AM EDT documented as of this encounter Progress Notes * Bell Dolan M.A. - 12/02/2019 2:00 PM EDTFrom: Juan A Ferreira To: Radha Ruiz MD Sent: 11/30/2019 6:38 PM EDT Subject: Question regarding BASIC NORTHEAST ALLERGY PANEL I have a question about BASIC NORTHEAST ALLERGY PANEL resulted on 11/25/19, 5:04 PM. Can you interpret the values for me please, such as the I and what this actually means? Thank you Juan A documented in this encounter Plan of Treatment Not on file documented as of this encounter Visit Diagnoses Not on filedocumented in this encounter Care Teams Tax Consultant Relationship Specialty Start Date End Date Lynne Ramos MD PCP - General Internal Medicine 03/23/16 05/03/20 Eileen Aleman MD PCP - General Internal Medicine 05/04/20 09/14/21 Pending [facility] To [facility], Pcp PCP - General Internal Medicine 09/15/21 01/05/22 Lynne Ramos MD PCP - General Internal Medicine 01/06/22 Suzi Kelly PA-C Specialist Internal Medicine 01/06/22 Venancio Brown MD [address] [place] [address] Specialist Cardiovascular Disease 01/06/22 documented as of this encounter
--- OUTSIDE RECORDS SUMMARY | 2024-04-10 17:44 | XMS_ITS | Encounter Summary ---
Author Organization [facility] Address [address] [place] [address] Care Team Providers Care Parachute Panel Joiner Name Role Phone Lynne Ramos MD Primary Care Provider Eileen Diaz MD Primary Care Provider [place] [facility], Pcp Primary Care Provider Lynne Seaman MD Primary Care Provider Suzi Anthony PA-C Unavailable Unavailable Venancio Brown MD Unavailable [phone] Encounter Details Date Type Department Care Team Description 08/13/2016 Hospital Medical Records [address] [place] [id number] Mary Johnson MD [address] [place] [address] [address] [place] [address] Social History Tobacco Use Types Packs/Day Years [...] on filedocumented in this encounter Care Teams Parachute Panel Joiner Relationship Specialty Start Date End Date Lynne Ramos MD PCP - General Internal Medicine 03/23/16 05/03/20 Eileen Aleman MD PCP - General Internal Medicine 05/04/20 09/14/21 [facility], Pcp PCP - General Internal Medicine 09/15/21 01/05/22 Lynne Ramos MD PCP - General Internal Medicine 01/06/22 Suzi Kelly PA-C Specialist Internal Medicine 01/06/22 Venancio Brown MD [address] [place] [address] Specialist Cardiovascular Disease 01/06/22 documented as of this encounter
--- OUTSIDE RECORDS SUMMARY | 2024-04-10 17:44 | XMS_ITS | Encounter Summary ---
Author Organization [facility] Address [address] [place] [address] Care Team Providers Care Bullet Maker Name Role Phone Lynne Ramos MD Primary Care Provider Eileen Diaz MD Primary Care Provider [place] [facility], Pcp Primary Care Provider Lynne Seaman MD Primary Care Provider Suzi Anthony PA-C Unavailable Unavailable Venancio Brown MD Unavailable [phone] Encounter Details Date Type Department Care Team Description 02/17/2017 Product Builder Report Medical Records [address] [place] [address] Rosita Will MD Social History Tobacco Use [...] on filedocumented in this encounter Care Teams Bullet Maker Relationship Specialty Start Date End Date Lynne Ramos MD PCP - General Internal Medicine 03/23/16 05/03/20 Eileen Aleman MD PCP - General Internal Medicine 05/04/20 09/14/21 [facility], Pcp PCP - General Internal Medicine 09/15/21 01/05/22 Lynne Ramos MD PCP - General Internal Medicine 01/06/22 Suzi Kelly PA-C Specialist Internal Medicine 01/06/22 Venancio Brown MD [address] [place] [address] Specialist Cardiovascular Disease 01/06/22 documented as of this encounter
--- OUTSIDE RECORDS SUMMARY | 2024-04-10 17:44 | XMS_ITS | Encounter Summary ---
Author Organization [facility] Address [address] [place] [address] Care Team Providers Care Mixing Tank Operator Name Role Phone Lynne Ramos MD Primary Care Provider Eileen Diaz MD Primary Care Provider [place] [facility], Pcp Primary Care Provider UnavailLynne Barnes MD Primary Care Provider Suzi Anthony PA-C Unavailable Unavailable Venancio Brown MD Unavailable Encounter Details Date Type Department Care Team Description 03/25/2016 Release of Information Medical Records [address] [place] [address] Abstract, Provider Social History Tobacco Use Types [...] on filedocumented in this encounter Care Teams Mixing Tank Operator Relationship Specialty Start Date End Date Lynne Ramos MD PCP - General Internal Medicine 03/23/16 05/03/20 Eileen Aleman MD PCP - General Internal Medicine 05/04/20 09/14/21 [facility], Pcp PCP - General Internal Medicine 09/15/21 01/05/22 Lynne Ramos MD PCP - General Internal Medicine 01/06/22 Suzi Kelly PA-C Specialist Internal Medicine 01/06/22 Venancio Brown MD [address] [place] [address] Specialist Cardiovascular Disease 01/06/22 documented as of this encounter
--- OUTSIDE RECORDS SUMMARY | 2024-04-10 17:44 | XMS_ITS | Encounter Summary ---
Author Organization [facility] Address [address] [place] [address] Care Team Providers Care Mobile Home Installer Name Role Phone Lynne Ramos MD Primary Care Provider Eileen Diaz MD Primary Care Provider [facility], Pcp Primary Care Provider Lynne Seaman MD Primary Care Provider Suzi Anthony PA-C Unavailable Unavailable Venancio Brown MD Unavailable Reason for Visit * Reason Onset Date Comments TEST RESULTS 05/13/2018 Medication Review 05/13/2018 Encounter Details Date Type Department Care Team Description 05/13/2018 Pt. Non Urgent Medical Question Adult Urgent Care - [address] [place] [address] [address] Miya Heller PA-C [address] [place] [address] Social History Tobacco Use Types Packs/Day Years [...] on filedocumented in this encounter Care Teams Mobile Home Installer Relationship Specialty Start Date End Date Lynne Ramos MD PCP - General Internal Medicine 03/23/16 05/03/20 Eileen Aleman MD PCP - General Internal Medicine 05/04/20 09/14/21 [facility], Pcp PCP - General Internal Medicine 09/15/21 01/05/22 Lynne Ramos MD PCP - General Internal Medicine 01/06/22 Suzi Kelly PA-C Specialist Internal Medicine 01/06/22 Venancio Brown MD [address] [place] [address] Specialist Cardiovascular Disease 01/06/22 documented as of this encounter
--- OUTSIDE RECORDS SUMMARY | 2024-04-10 17:44 | XMS_ITS | Encounter Summary ---
Author Organization [facility] Address [address] [place] [address] Care Team Providers Care Sorority Supervisor Name Role Phone Lynne Ramos MD Primary Care Provider Eileen Diaz MD Primary Care Provider [facility], Pcp Primary Care Provider Lynne Seaman MD Primary Care Provider UnavailSuzi Guzman PA-C Unavailable Unavailable Venancio Brown MD Unavailable [phone] Reason for Visit * Reason Comments E-prescribe Rx Request COLESTIPOL HCL 1 GM TABLET Encounter Details Date Type Department Care Team Description 06/08/2018 Refill Gastroenterology [address] [place] [address] Gary De Jesus MD [address] [place] [address] E-prescribe Rx Request (COLESTIPOL HCL 1 GM TABLET) Social History Tobacco Use Types Packs/Day Years [...] on filedocumented in this encounter Care Teams Sorority Supervisor Relationship Specialty Start Date End Date Lynne Ramos MD PCP - General Internal Medicine 03/23/16 05/03/20 Eileen Aleman MD PCP - General Internal Medicine 05/04/20 09/14/21 [facility], Pcp PCP - General Internal Medicine 09/15/21 01/05/22 Lynne Ramos MD PCP - General Internal Medicine 01/06/22 Suzi Kelly PA-C Specialist Internal Medicine 01/06/22 Venancio Brown MD [address] [place] [address] Specialist Cardiovascular Disease 01/06/22 documented as of this encounter
--- OUTSIDE RECORDS SUMMARY | 2024-04-10 17:44 | XMS_ITS | Encounter Summary ---
Author Organization [facility] Address [address] [place] [address] Care Team Providers Care Ticket Speculator Name Role Phone Lynne Ramos MD Primary Care Provider Eileen Diaz MD Primary Care Provider [facility], Pcp Primary Care Provider Lynne Seaman MD Primary Care Provider Suzi Anthony PA-C Unavailable Unavailable Venancio Brown MD Unavailable Encounter Details Date Type Department Care Team Description 11/22/2018 Controlled Substance Plan Medical Records [address] [place] [address] Abstract, Provider Social History Tobacco Use Types [...] on filedocumented in this encounter Care Teams Ticket Speculator Relationship Specialty Start Date End Date Lynne Ramos MD PCP - General Internal Medicine 03/23/16 05/03/20 Eileen Aleman MD PCP - General Internal Medicine 05/04/20 09/14/21 [facility] PCP - General Internal Medicine 09/15/21 01/05/22 Lynne Ramos MD PCP - General Internal Medicine 01/06/22 Suzi Kelly PA-C Specialist Internal Medicine 01/06/22 Venancio Brown MD [address] [place] [address] Specialist Cardiovascular Disease 01/06/22 documented as of this encounter
--- OUTSIDE RECORDS SUMMARY | 2024-04-10 17:44 | XMS_ITS | Encounter Summary ---
Author Organization [facility] Address [address] [place] [address] Care Team Providers Care Clinical Asst Name Role Phone Lynne Ramos MD Primary Care Provider Eileen Diaz MD Primary Care Provider [place] [facility], Pcp Primary Care Provider UnavailLynne Barnes MD Primary Care Provider Suzi Anthony PA-C Unavailable Unavailable Venancio Brown MD Unavailable [phone] Encounter Details Date Type Department Care Team Description 03/08/2017 Release of Information Medical Records [address] [place] [address] Abstract, Provider Social History Tobacco Use Types [...] filedocumented in this encounter Care Teams Clinical Asst Relationship Specialty Start Date End Date Lynne Ramos MD PCP - General Internal Medicine 03/23/16 05/03/20 Eileen Aleman MD PCP - General Internal Medicine 05/04/20 09/14/21 [facility], Pcp PCP - General Internal Medicine 09/15/21 01/05/22 Lynne Ramos MD PCP - General Internal Medicine 01/06/22 Suzi Kelly PA-C Specialist Internal Medicine 01/06/22 Venancio Brown MD [address] [place] [address] Specialist Cardiovascular Disease 01/06/22 documented as of this encounter
--- OUTSIDE RECORDS SUMMARY | 2024-04-10 17:44 | XMS_ITS | Encounter Summary ---
Author Organization [facility] Address [address] [place] [address] Care Team Providers Care Museum Or Zoo Director Name Role Phone Lynne Ramos MD Primary Care Provider Eileen Diaz MD Primary Care Provider [place] [facility], Pcp Primary Care Provider Lynne Seaman MD Primary Care Provider UnavailSuzi Guzman PA-C Unavailable Unavailable Venancio Brown MD Unavailable [phone] Encounter Details Date Type Department Care Team Description 08/08/2016 PNO Controlled Substance Contract Medical Records [address] [place] [id number] Abstract, Provider Social History Tobacco Use Types [...] on filedocumented in this encounter Care Teams Museum Or Zoo Director Relationship Specialty Start Date End Date Lynne Ramos MD PCP - General Internal Medicine 03/23/16 05/03/20 Eileen Aleman MD PCP - General Internal Medicine 05/04/20 09/14/21 [facility], Pcp PCP - General Internal Medicine 09/15/21 01/05/22 Lynne Ramos MD PCP - General Internal Medicine 01/06/22 Suzi Kelly PA-C Specialist Internal Medicine 01/06/22 Venancio Brown MD [address] [place] [address] Specialist Cardiovascular Disease 01/06/22 documented as of this encounter
--- OUTSIDE RECORDS SUMMARY | 2024-04-10 17:44 | XMS_ITS | Encounter Summary ---
Author Organization [facility] Address [address] [place] [address] Care Team Providers Care Reinsurance Claims Analyst Name Role Phone Eileen Aleman MD Primary Care Provider [facility], Pcp Primary Care Provider Lynne Seaman MD Primary Care Provider Suzi Anthony PA-C Unavailable Unavailable Venancio Brown MD Unavailable Encounter Details Date Type Department Care Team Description 06/30/2021 Pt. Non Urgent Medical Question [facility] [address] [place] [address] Edson Adam PA-C [address] [place] [address] Social History Tobacco Use Types Packs/Day Years [...] encounter Miscellaneous Notes * Telephone Encounter - Denise Bruce M.A. - 06/30/2021 2:40 PM EDTFrom: Juan A Ferreira To: Christa Kia Sent: 06/30/2021 2:38 PM EDT Subject: appt Compa Sandhu, When I had see you last week you wanted to follow up in 2 weeks and start PT. My first PT appt is not until 07/13 ~ do you still want me to follow up next week with you? Thank you, Juan A documented in this encounter Plan of Treatment Not on file documented as of this encounter Visit Diagnoses Not on filedocumented in this encounter Care Teams Reinsurance Claims Analyst Relationship Specialty Start Date End Date Eileen Aleman MD PCP - General Internal Medicine 05/04/20 09/14/21 [facility] PCP - General Internal Medicine 09/15/21 01/05/22 Lynne Ramos MD PCP - General Internal Medicine 01/06/22 Suzi Kelly PA-C Specialist Internal Medicine 01/06/22 Venancio Brown MD [address] [place] [address] Specialist Cardiovascular Disease 01/06/22 documented as of this encounter
--- OUTSIDE RECORDS SUMMARY | 2024-04-10 17:44 | XMS_ITS | Encounter Summary ---
Author Organization [facility] Address [address] [place] [address] Care Team Providers Care Matrix Supervisor Name Role Phone Lynne Ramos MD Primary Care Provider Eileen Diaz MD Primary Care Provider [place] [facility], Pcp Primary Care Provider Lynne Seaman MD Primary Care Provider UnavailSuzi Guzman PA-C Unavailable Unavailable Venancio Brown MD Unavailable [phone] Encounter Details Date Type Department Care Team Description 05/25/2018 Orders Only Medicine/Pediatrics - [address] [phone] Yasmine Shah PA-C Social History Tobacco Use [...] on filedocumented in this encounter Care Teams Matrix Supervisor Relationship Specialty Start Date End Date Lynne Ramos MD PCP - General Internal Medicine 03/23/16 05/03/20 Eileen Aleman MD PCP - General Internal Medicine 05/04/20 09/14/21 [facility], Pcp PCP - General Internal Medicine 09/15/21 01/05/22 Lynne Ramos MD PCP - General Internal Medicine 01/06/22 Suzi Kelly PA-C Specialist Internal Medicine 01/06/22 Venancio Brown MD [address] [place] [address] Specialist Cardiovascular Disease 01/06/22 documented as of this encounter
--- OUTSIDE RECORDS SUMMARY | 2024-04-10 17:44 | XMS_ITS | Encounter Summary ---
Author Organization [facility] Address [address] [place] [address] Care Team Providers Care Proofsheet Corrector Name Role Phone Lynne Ramos MD Primary Care Provider Eileen Diaz MD Primary Care Provider [facility], Pcp Primary Care Provider Lynne Seaman MD Primary Care Provider Suzi Anthony PA-C Unavailable Unavailable Venancio Brown MD Unavailable [phone] Encounter Details Date Type Department Care Team Description 11/15/2019 Orders Only Medicine/Pediatrics [address] [phone] Lynne Ramos MD Social History Tobacco Use [...] have Coronavirus / COVID-19? No / Unsure 10/21/2019 3:47 PM EDT documented as of this encounter Plan of Treatment Not on file documented as of this encounter Visit Diagnoses Not on filedocumented in this encounter Care Teams Proofsheet Corrector Relationship Specialty Start Date End Date Lynne Ramos MD PCP - General Internal Medicine 03/23/16 05/03/20 Eileen Aleman MD PCP - General Internal Medicine 05/04/20 09/14/21 [facility], Pcp PCP - General Internal Medicine 09/15/21 01/05/22 Lynne Ramos MD PCP - General Internal Medicine 01/06/22 Suzi Kelly PA-C Specialist Internal Medicine 01/06/22 Venancio Brown MD [address] [place] [address] Specialist Cardiovascular Disease 01/06/22 documented as of this encounter
--- OUTSIDE RECORDS SUMMARY | 2024-04-10 17:44 | XMS_ITS | Encounter Summary ---
Author Organization [facility] Address [address] [place] [address] Care Team Providers Care Bolt Threader Name Role Phone Eileen Aleman MD Primary Care Provider [facility], Pcp Primary Care Provider Lynne Seaman MD Primary Care Provider Suzi Anthony PA-C Unavailable Unavailable Venancio Brown MD Unavailable [phone] Encounter Details Date Type Department Care Team Description 04/25/2021 Refill Gastroenterology - [address] [place] [address] Gary De Jesus MD [address] [place] [id number] Social History Tobacco Use Types Packs/Day Years [...] Telephone Encounter - Sweetie Lo M.A. - 04/26/2021 11:59 AM EDT Covering for Neal * Telephone Encounter - Sweetie Lo M.A. 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
--- OUTSIDE RECORDS SUMMARY | 2024-04-10 17:44 | XMS_ITS | Encounter Summary ---
Author Organization [facility] Address [address] [place] [address] Care Team Providers Care Bowl Sander Name Role Phone Lynne Ramos MD Primary Care Provider Eileen Diaz MD Primary Care Provider [facility], Pcp Primary Care Provider Lynne Seaman MD Primary Care Provider Suzi Anthony PA-C Unavailable Unavailable Venancio Brown MD Unavailable [phone] Encounter Details Date Type Department Care Team Description 08/18/2016 Pt. Non Urgent Medical Question Medicine/Pediatrics - [address] [address] Lynne Ramos MD Social History Tobacco Use [...] I am just following up to the [employer] message I sent to Dr Jean 08/17 about med changes. Thanks documented in this encounter Plan of Treatment Not on file documented as of this encounter Visit Diagnoses Not on filedocumented in this encounter Care Teams Bowl Sander Relationship Specialty Start Date End Date Lynne Ramos MD PCP - General Internal Medicine 03/23/16 05/03/20 Eileen Aleman MD PCP - General Internal Medicine 05/04/20 09/14/21 [facility] PCP - General Internal Medicine 09/15/21 01/05/22 Lynne Ramos MD PCP - General Internal Medicine 01/06/22 Suzi Kelly PA-C Specialist Internal Medicine 01/06/22 Venancio Brown MD [address] [place] [address] Specialist Cardiovascular Disease 01/06/22 documented as of this encounter
--- OUTSIDE RECORDS SUMMARY | 2024-04-10 17:44 | XMS_ITS | Encounter Summary ---
Author Organization [facility] Address [address] [place] [address] Care Team Providers Care Log Carrier Operator Name Role Phone Eileen Aleman MD Primary Care Provider [facility], Pcp Primary Care Provider Lynne Seaman MD Primary Care Provider Suzi Anthony PA-C Unavailable Unavailable Venancio Brown MD Unavailable [phone] Encounter Details Date Type Department Care Team Description 06/21/2021 Pt. Non Urgent Medical Question [facility] [address] [place] [address] Edson Adam PA-C [address] [place] [address] Social History Tobacco Use Types Packs/Day Years [...] on filedocumented in this encounter Care Teams Log Carrier Operator Relationship Specialty Start Date End Date Eileen Aleman MD PCP - General Internal Medicine 05/04/20 09/14/21 [facility], Pcp PCP - General Internal Medicine 09/15/21 01/05/22 Lynne Ramos MD PCP - General Internal Medicine 01/06/22 Suzi Kelly PA-C Specialist Internal Medicine 01/06/22 Venancio Brown MD [address] [place] [address] Specialist Cardiovascular Disease 01/06/22 documented as of this encounter
--- OUTSIDE RECORDS SUMMARY | 2024-04-10 17:44 | XMS_ITS | Encounter Summary ---
Author Organization [facility] Address [address] [place] [address] Care Team Providers Care Commission Clerk Name Role Phone Lynne Ramos MD Primary Care Provider Eileen Diaz MD Primary Care Provider [facility], Pcp Primary Care Provider Lynne Seaman MD Primary Care Provider Suzi Anthony PA-C Unavailable Unavailable Venancio Brown MD Unavailable [phone] Encounter Details Date Type Department Care Team Description 10/21/2019 Orders Only Medicine/Pediatrics [address] [address] Lynne Ramos MD Preventive measure (Primary Dx); Neck pain; DDD (degenerative disc disease), cervical Social History [...] documented as of this encounter Results * X-RAY EXAM OF NECK SPINE, 4+ VIEWS (10/21/2019 3:54 PM EDT) 10/21/2019 4:09 PM EDT Impressions [facility] - 10/21/2019 4:10 PM EDT IMPRESSION: Postoperative and minimal degenerative changes as above. Narrative [facility] - 10/21/2019 4:10 PM EDT History: Neck pain. ??History of surgery. Cervical spine, 4 views: There has been anterior plate and screw fixation at C3- 4 with ankylosis of the disc space. ??A disc prosthesis is present at C4-5. ??Hardware components appear appropriately positioned. ??The remaining disc spaces are well-preserved. ??There is mild facet degeneration at C4-5 on the left with mild neuroforaminal narrowing. ??The remaining neuroforamen are patent. ??Alignment is normal. Procedure Note Pete Quintanilla MD - 10/21/2019 History: Neck pain. History of surgery. Cervical spine, 4 views: There has been anterior plate and screw fixationat C3-4 with ankylosis of the disc space. A disc prosthesis is present at C4-5.Hardware components appear appropriately positioned. The remaining disc spaces are well-preserved.There is mild facet degeneration at C4-5 on the left with mild neuroforaminal narrowing. Theremaining neuroforamen are patent. Alignment is normal. IMPRESSION IMPRESSION: Postoperative and minimal degenerative changes as above. Lynne Ramos MD RADIOLOGY [facility] documented in this encounter Visit Diagnoses Diagnosis Preventive measure- Primary Unspecified prophylactic or treatment measure Neck pain Cervicalgia DDD (degenerative disc disease), cervical Degeneration of cervical intervertebral disc Neck pain Cervicalgia DDD (degenerative disc disease), cervical Degeneration of cervical intervertebral disc documented in this encounter Care Teams Commission Clerk Relationship Specialty Start Date End Date Lynne Ramos MD PCP - General Internal Medicine 03/23/16 05/03/20 Eileen Aleman MD PCP - General Internal Medicine 05/04/20 09/14/21 [facility], Pcp PCP - General Internal Medicine 09/15/21 01/05/22 Lynne Ramos MD PCP - General Internal Medicine 01/06/22 Suzi Kelly PA-C Specialist Internal Medicine 01/06/22 Venancio Brwon MD [address] [place] [address] Specialist Cardiovascular Disease 01/06/22 documented as of this encounter
--- OUTSIDE RECORDS SUMMARY | 2024-04-10 17:44 | XMS_ITS | Encounter Summary ---
Author Organization [facility] Address [address] [place] [address] Care Team Providers Care Manager Long Term Care Name Role Phone Lynne Ramos MD Primary Care Provider Eileen Diaz MD Primary Care Provider [facility], Pcp Primary Care Provider Lynne Seaman MD Primary Care Provider Suzi Anthony PA-C Unavailable Unavailable Venancio Brown MD Unavailable [phone] Reason for Visit * Reason Onset Date Comments REFERRAL 03/25/2019 Encounter Details Date Type Department Care Team Description 03/25/2019 Telephone Medicine/Pediatrics - [address] [address] Lynne Ramos MD REFERRAL Social History Tobacco [...] on filedocumented in this encounter Care Teams Manager Long Term Care Relationship Specialty Start Date End Date Lynne Ramos MD PCP - General Internal Medicine 03/23/16 05/03/20 Eileen Aleman MD PCP - General Internal Medicine 05/04/20 09/14/21 [facility] PCP - General Internal Medicine 09/15/21 01/05/22 Lynne Ramos MD PCP - General Internal Medicine 01/06/22 Suzi Kelly PA-C Specialist Internal Medicine 01/06/22 Venancio Brown MD [address] [place] [address] Specialist Cardiovascular Disease 01/06/22 documented as of this encounter
--- OUTSIDE RECORDS SUMMARY | 2024-04-10 17:44 | XMS_ITS | Encounter Summary ---
Author Organization [facility] Address [address] [place] [address] Care Team Providers Care Director Social Service Name Role Phone Eileen Aleman MD Primary Care Provider [facility], Pcp Primary Care Provider Lynne Seaman MD Primary Care Provider Suzi Anthony PA-C Unavailable Unavailable Venancio Brown MD Unavailable [phone] Encounter Details Date Type Department Care Team Description 07/27/2021 Telephone [facility] [address] [place] [address] Edson Adam PA-C [address] [place] [address] Social History Tobacco Use Types Packs/Day Years [...] on filedocumented in this encounter Care Teams Director Social Service Relationship Specialty Start Date End Date Eileen Aleman MD PCP - General Internal Medicine 05/04/20 09/14/21 [facility], Pcp PCP - General Internal Medicine 09/15/21 01/05/22 Lynne Ramos MD PCP - General Internal Medicine 01/06/22 Suzi Kelly PA-C Specialist Internal Medicine 01/06/22 Venancio Brown MD [address] [place] [address] Specialist Cardiovascular Disease 01/06/22 documented as of this encounter
--- OUTSIDE RECORDS SUMMARY | 2024-04-10 17:44 | XMS_ITS | Encounter Summary ---
Author Organization [facility] Address [address] [place] [address] Care Team Providers Care Fisheries Enforcement Officer Name Role Phone Lynne Ramos MD Primary Care Provider Eileen Diaz MD Primary Care Provider [facility], Pcp Primary Care Provider Lynne Seaman MD Primary Care Provider Suzi Anthony PA-C Unavailable Unavailable Venanico Brown MD Unavailable [phone] Reason for Visit * Reason Onset Date Comments Call From Pharmacy 08/17/2016 Encounter Details Date Type Department Care Team Description 08/17/2016 Telephone General Surgery [address] [place] [address] Kadeem Matos MD [address] [place] [address] Call From Pharmacy Social History Tobacco Use [...] - 08/17/2016 2:57 PM EDT Garrick from [facility] Pharmacy on [facility] in [place] called stating Dr Matos prescribed Colaceand Sennas. The Sennas has Colace in it. Pharmacist is asking which one does Dr Matos want to prescribe. Please call [phone] documented in this encounter Plan of Treatment Not on file documented as of this encounter Visit Diagnoses Not on filedocumented in this encounter Care Teams Fisheries Enforcement Officer Relationship Specialty Start Date End Date Lynne Ramos MD PCP - General Internal Medicine 03/23/16 05/03/20 Eileen Aleman MD PCP - General Internal Medicine 05/04/20 09/14/21 [facility], Pcp PCP - General Internal Medicine 09/15/21 01/05/22 Lynne Ramos MD PCP - General Internal Medicine 01/06/22 Suzi Kelly PA-C Specialist Internal Medicine 01/06/22 Venancio Brown MD [address] [place] [address] Specialist Cardiovascular Disease 01/06/22 documented as of this encounter
--- OUTSIDE RECORDS SUMMARY | 2024-04-10 17:44 | XMS_ITS | Encounter Summary ---
Author Organization [facility] Address [address] [place] [address] Care Team Providers Care Personnel Psychologist Name Role Phone Lynne Ramos MD Primary Care Provider Eileen Diaz MD Primary Care Provider [facility], Pcp Primary Care Provider Lynne Seaman MD Primary Care Provider Suzi Anthony PA-C Unavailable Unavailable Venancio Brown MD Unavailable [phone] Reason for Visit * Reason Onset Date Comments Testing 02/02/2017 Encounter Details Date Type Department Care Team Description 02/02/2017 Telephone Radiology - [address] [address] Nilsa Luevano MD Testing Social History Tobacco Use Types Packs/Day Years [...] Miscellaneous Notes * Telephone Encounter - Jael Herrera - 02/02/2017 5:47 PM EST FYI: Juan A Ferreira has not responded to the telephone calls that were made as well as the letter that was sent to schedule a SONO EXAM, HYSTEROSONOGRAPHY Therefore we are removing the test from our Scheduled Orders Report. Please note that this test must be reordered if required in the future. Thank you, Jael Radiology documented in this encounter Plan of Treatment Not on file documented as of this encounter Visit Diagnoses Not on filedocumented in this encounter Care Teams Personnel Psychologist Relationship Specialty Start Date End Date Lynne Ramos MD PCP - General Internal Medicine 03/23/16 05/03/20 Eileen Aleman MD PCP - General Internal Medicine 05/04/20 09/14/21 [facility] PCP - General Internal Medicine 09/15/21 01/05/22 Lynne Ramos MD PCP - General Internal Medicine 01/06/22 Suzi Kelly PA-C Specialist Internal Medicine 01/06/22 Venancio Brown MD [address] [place] [address] Specialist Cardiovascular Disease 01/06/22 documented as of this encounter
--- OUTSIDE RECORDS SUMMARY | 2024-04-10 17:44 | XMS_ITS | Encounter Summary ---
Author Organization [facility] Address [address] [place] [address] Care Team Providers Care Bundle Person Name Role Phone Lynne Ramos MD Primary Care Provider Eileen Diaz MD Primary Care Provider [place] [facility], Pcp Primary Care Provider UnavailLynne Barnes MD Primary Care Provider Suzi Anthony PA-C Unavailable Unavailable Venancio Brown MD Unavailable Encounter Details Date Type Department Care Team Description 01/09/2017 Transfer Records Medical Records [address] [place] [address] Social History Tobacco Use Types Packs/Day Years [...] on filedocumented in this encounter Care Teams Bundle Person Relationship Specialty Start Date End Date Lynne Ramos MD PCP - General Internal Medicine 03/23/16 05/03/20 Eileen Aleman MD PCP - General Internal Medicine 05/04/20 09/14/21 [facility], Pcp PCP - General Internal Medicine 09/15/21 01/05/22 Lynne Ramos MD PCP - General Internal Medicine 01/06/22 Suzi Kelly PA-C Specialist Internal Medicine 01/06/22 Venancio Brown MD [address] [place] [address] Specialist Cardiovascular Disease 01/06/22 documented as of this encounter
--- OUTSIDE RECORDS SUMMARY | 2024-04-10 17:44 | XMS_ITS | Encounter Summary ---
Author Organization [facility] Address [address] [place] [address] Care Team Providers Care Automobile Mechanic Radiator Name Role Phone Lynne Ramos MD Primary Care Provider Eileen Diaz MD Primary Care Provider [place] [facility], Pcp Primary Care Provider Lynne Seaman MD Primary Care Provider Suzi Anthony PA-C Unavailable Unavailable Venancio Brown MD Unavailable [phone] Encounter Details Date Type Department Care Team Description 10/04/2018 [facility] Medical Records [address] [place] [address] Abstract, Provider Social History Tobacco Use Types [...] on filedocumented in this encounter Care Teams Automobile Mechanic Radiator Relationship Specialty Start Date End Date Lynne Ramos MD PCP - General Internal Medicine 03/23/16 05/03/20 Eileen Aleman MD PCP - General Internal Medicine 05/04/20 09/14/21 [facility], [facility] PCP - General Internal Medicine 09/15/21 01/05/22 Lynne Ramos MD PCP - General Internal Medicine 01/06/22 Suzi Kelly PA-C Specialist Internal Medicine 01/06/22 Venancio Brown MD [address] [place] [address] Specialist Cardiovascular Disease 01/06/22 documented as of this encounter
--- OUTSIDE RECORDS SUMMARY | 2024-04-10 17:44 | XMS_ITS | Encounter Summary ---
Author Organization [facility] Address [address] [place] [address] Care Team Providers Care Card Cleaner Name Role Phone Lynne Ramos MD Primary Care Provider Eileen Diaz MD Primary Care Provider [facility], Pcp Primary Care Provider Lynne Seaman MD Primary Care Provider Suzi Anthony PA-C Unavailable Unavailable Venancio Brown MD Unavailable [phone] Encounter Details Date Type Department Care Team Description 04/06/2020 Batcher Operator Report Medical Records [address] [place] [address] Janie Harris, JUNITO Social History Tobacco Use [...] on filedocumented in this encounter Care Teams Card Cleaner Relationship Specialty Start Date End Date Lynne Ramos MD PCP - General Internal Medicine 03/23/16 05/03/20 Eileen Aleman MD PCP - General Internal Medicine 05/04/20 09/14/21 [facility] PCP - General Internal Medicine 09/15/21 01/05/22 Lynne Ramos MD PCP - General Internal Medicine 01/06/22 Suzi Kelly PA-C Specialist Internal Medicine 01/06/22 Venancio Brown MD [address] [place] [address] Specialist Cardiovascular Disease 01/06/22 documented as of this encounter
--- OUTSIDE RECORDS SUMMARY | 2024-04-10 17:44 | XMS_ITS | Encounter Summary ---
Author Organization [facility] Address [address] [place] [address] Care Team Providers Care Superintendent Production Name Role Phone Eileen Aleman MD Primary Care Provider [facility], Pcp Primary Care Provider Lynne Seaman MD Primary Care Provider Suzi Anthony PA-C Unavailable Unavailable Venancio Brown MD Unavailable [phone] Reason for Visit * Reason Onset Date Comments Faxed Refill 05/14/2020 Encounter Details Date Type Department Care Team Description 05/14/2020 Refill OBGYN - [place] [address] [place] [address] Naima Tobias, [facility] [address] [place] [address] Faxed Refill Social History Tobacco Use Types Packs/Day Years [...] suspected to have Coronavirus / COVID-19? Yes 05/13/2020 2:35 PM EDT documented as of this encounter Miscellaneous Notes * Telephone Encounter - Oneyda Reyes - 05/26/2020 12:32 PM EDT [facility] for [facility] ,thank you * Telephone Encounter - Kanwal [place] L.P.N. - 05/15/2020 11:00 AM EDT Telephone Information: Left msg to call Where does pt want [facility] filled, [facility] or mail order? * Telephone Encounter - Oneyda Reyes - 05/14/2020 11:24 AM EDT WHEN WAS THE PATIENTS LAST ANNUAL CORPORATE REAL ESTATE MANAGER EXAM? 04/2020 Does patient have an upcoming appointment? No (THE MEDICATION REQUESTED IS ON THE MED [...] AETNA / Plan: POS $20/30 RUPERTO MACIEL [id number] THYURIY TRADITNAL / Product Type: POS [id number] documented in this encounter Plan of Treatment Not on file documented as of this encounter Visit Diagnoses Not on filedocumented in this encounter Care Teams Superintendent Production Relationship Specialty Start Date End Date Eileen Aleman MD PCP - General Internal Medicine 05/04/20 09/14/21 [facility], Pcp PCP - General Internal Medicine 09/15/21 01/05/22 Lynne Ramos MD PCP - General Internal Medicine 01/06/22 Suzi Kelly PA-C Specialist Internal Medicine 01/06/22 Venancio Brown MD [address] [place] [address] Specialist Cardiovascular Disease 01/06/22 documented as of this encounter
--- OUTSIDE RECORDS SUMMARY | 2024-04-10 17:44 | XMS_ITS | Encounter Summary ---
Author Organization [facility] Address [address] [place] [address] Care Team Providers Care Vessel Ordinary Seaman Name Role Phone Eileen Aleman MD Primary Care Provider [place] [facility], Pcp Primary Care Provider UnavailLynne Barnes MD Primary Care Provider Unavaila Suzi Solorio PA-C Unavailable Unavailable Venancio Brown MD Unavailable [phone] Encounter Details Date Type Department Care Team Description 06/19/2020 [facility] Medical Records [address] [place] [address] Abstract, Provider Social History Tobacco Use Types [...] on filedocumented in this encounter Care Teams Vessel Ordinary Seaman Relationship Specialty Start Date End Date Eileen Aleman MD PCP - General Internal Medicine 05/04/20 09/14/21 [facility], Pcp PCP - General Internal Medicine 09/15/21 01/05/22 Lynne Ramos MD PCP - General Internal Medicine 01/06/22 Suzi Kelly PA-C Specialist Internal Medicine 01/06/22 Venancio Brown MD [address] [address] Specialist Cardiovascular Disease 01/06/22 documented as of this encounter
--- OUTSIDE RECORDS SUMMARY | 2024-04-10 17:44 | XMS_ITS | Encounter Summary ---
Author Organization [facility] Address [address] [place] [address] Care Team Providers Care Collision Mechanic Name Role Phone Lynne Ramos MD Primary Care Provider Eileen Diaz MD Primary Care Provider [place] [facility], Pcp Primary Care Provider Lynne Seaman MD Primary Care Provider Suzi Anthony PA-C Unavailable Unavailable Venancio Brown MD Unavailable [phone] Encounter Details Date Type Department Care Team Description 01/11/2019 Orders Only Medicine/Pediatrics [address] [address] Lynne Ramos MD Social History Tobacco Use [...] on filedocumented in this encounter Care Teams Collision Mechanic Relationship Specialty Start Date End Date Lynne Ramos MD PCP - General Internal Medicine 03/23/16 05/03/20 Eileen Aleman MD PCP - General Internal Medicine 05/04/20 09/14/21 [facility], Pcp PCP - General Internal Medicine 09/15/21 01/05/22 Lynne Ramos MD PCP - General Internal Medicine 01/06/22 Suzi Kelly PA-C Specialist Internal Medicine 01/06/22 Venancio Brown MD [address] [place] [address] Specialist Cardiovascular Disease 01/06/22 documented as of this encounter
--- OUTSIDE RECORDS SUMMARY | 2024-04-10 17:44 | XMS_ITS | Encounter Summary ---
Author Organization [facility] Address [address] [place] [address] Care Team Providers Care Tube Cleaning Operator Name Role Phone Lynne Ramos MD Primary Care Provider Eileen Diaz MD Primary Care Provider [place] [facility], Pcp Primary Care Provider Lynne Seaman MD Primary Care Provider UnavailSuzi Guzman PA-C Unavailable Unavailable Venancio Brown MD Unavailable [phone] Encounter Details Date Type Department Care Team Description 11/21/2016 [facility] Controlled Substance Contract Medical Records [address] [place] [id number] Abstract, Provider Social History Tobacco Use Types [...] on filedocumented in this encounter Care Teams Tube Cleaning Operator Relationship Specialty Start Date End Date yLnne Ramos MD PCP - General Internal Medicine 03/23/16 05/03/20 Eileen Aleman MD PCP - General Internal Medicine 05/04/20 09/14/21 [facility], Pcp PCP - General Internal Medicine 09/15/21 01/05/22 Lynne Ramos MD PCP - General Internal Medicine 01/06/22 Suzi Kelly PA-C Specialist Internal Medicine 01/06/22 Venancio Brown MD [address] [place] [address] Specialist Cardiovascular Disease 01/06/22 documented as of this encounter
--- OUTSIDE RECORDS SUMMARY | 2024-04-10 17:44 | XMS_ITS | Encounter Summary ---
Author Organization [facility] Address [address] [place] [address] Care Team Providers Care Tourist Information Officer Name Role Phone Lynne Ramos MD Primary Care Provider Eileen Diaz MD Primary Care Provider [place] [facility], Pcp Primary Care Provider Lynne Seaman MD Primary Care Provider Suzi Anthony PA-C Unavailable Unavailable Venancio Brown MD Unavailable [phone] Encounter Details Date Type Department Care Team Description 03/23/2018 [facility] Medical Records [address] [place] [address] Abstract, Provider Social History Tobacco Use Types [...] on filedocumented in this encounter Care Teams Tourist Information Officer Relationship Specialty Start Date End Date Lynne Ramos MD PCP - General Internal Medicine 03/23/16 05/03/20 Eileen Aleman MD PCP - General Internal Medicine 05/04/20 09/14/21 [facility], Pcp PCP - General Internal Medicine 09/15/21 01/05/22 Lynne Ramos MD PCP - General Internal Medicine 01/06/22 Suzi Kelly PA-C Specialist Internal Medicine 01/06/22 Venancio Brown MD [address] [place] [address] Specialist Cardiovascular Disease 01/06/22 documented as of this encounter
--- OUTSIDE RECORDS SUMMARY | 2024-04-10 17:45 | XMS_ITS | Encounter Summary ---
Author Organization [facility] Address [address] [place] [address] Care Team Providers Care Cook Pickled Meat Name Role Phone Lynne Ramos MD Primary Care Provider Eileen Diaz MD Primary Care Provider [place] [facility], Pcp Primary Care Provider Lynne Seaman MD Primary Care Provider Suzi Anthony PA-C Unavailable Unavailable Venancio Brown MD Unavailable [phone] Encounter Details Date Type Department Care Team Description 02/05/2018 [facility] Medical Records [address] [place] [address] Abstract, Provider Social History Tobacco Use Types [...] on filedocumented in this encounter Care Teams Cook Pickled Meat Relationship Specialty Start Date End Date Lynne Ramos MD PCP - General Internal Medicine 03/23/16 05/03/20 Eileen Aleman MD PCP - General Internal Medicine 05/04/20 09/14/21 [facility], [facility] PCP - General Internal Medicine 09/15/21 01/05/22 Lynne Ramos MD PCP - General Internal Medicine 01/06/22 Suzi Kelly PA-C Specialist Internal Medicine 01/06/22 Venancio Brown MD [address] [place] [address] Specialist Cardiovascular Disease 01/06/22 documented as of this encounter
--- OUTSIDE RECORDS SUMMARY | 2024-04-10 17:45 | XMS_ITS | Encounter Summary ---
Author Organization [facility] Address [address] [place] [address] Care Team Providers Care Final Tester Name Role Phone Lynne Ramos MD Primary Care Provider Eileen Diaz MD Primary Care Provider [place] [facility], Pcp Primary Care Provider Lynne Seaman MD Primary Care Provider Suzi Anthony PA-C Unavailable Unavailable Venancio Brown MD Unavailable [phone] Encounter Details Date Type Department Care Team Description 05/11/2019 Orders Only Medicine/Pediatrics - [address] [address] Lynne Ramos MD Social History Tobacco Use [...] on filedocumented in this encounter Care Teams Final Tester Relationship Specialty Start Date End Date Lynne Ramos MD PCP - General Internal Medicine 03/23/16 05/03/20 Eileen Aleman MD PCP - General Internal Medicine 05/04/20 09/14/21 [facility], Pcp PCP - General Internal Medicine 09/15/21 01/05/22 Lynne Ramos MD PCP - General Internal Medicine 01/06/22 Suzi Kelly PA-C Specialist Internal Medicine 01/06/22 Venancio Brown MD [address] [place] [address] Specialist Cardiovascular Disease 01/06/22 documented as of this encounter
--- OUTSIDE RECORDS SUMMARY | 2024-04-10 17:45 | XMS_ITS | Encounter Summary ---
Author Organization [facility] Address [address] [place] [address] Care Team Providers Care Senior Major Gifts Officer Name Role Phone Lynne Ramos MD Primary Care Provider Suzi Anthony PA-C Unavailable Unavailable Venancio Brown MD Unavailable [phone] Encounter Details Date Type Department Care Team Description 01/07/2022 SCAN Medical Records [address] [place], [place] [id number] [place] [address] Social History Tobacco Use Types Packs/Day Years [...] on filedocumented in this encounter Care Teams Senior Major Gifts Officer Relationship Specialty Start Date End Date Lynne Ramos MD PCP - General Internal Medicine 01/06/22 Suzi Kelly PA-C Specialist Internal Medicine 01/06/22 Venancio Brown MD [address] [place] [address] Specialist Cardiovascular Disease 01/06/22 documented as of this encounter
--- OUTSIDE RECORDS SUMMARY | 2024-04-10 17:45 | XMS_ITS | Encounter Summary ---
Author Organization [facility] Address [address] [place] [address] Care Team Providers Care Mining Detail Draftsperson Name Role Phone Lynne Ramos MD Primary Care Provider Eileen Diaz MD Primary Care Provider [facility], Pcp Primary Care Provider Lynne Seaman MD Primary Care Provider Suzi Anthony PA-C Unavailable Unavailable Venancio Brown MD Unavailable [phone] Encounter Details Date Type Department Care Team Description 10/18/2017 Percussion Instructor Report Medical Records [address] [place] [id number] Jimbo Galeano PA-C [address] [place] [address] [address] [place] [address] Social History Tobacco Use Types Packs/Day Years [...] on filedocumented in this encounter Care Teams Mining Detail Draftsperson Relationship Specialty Start Date End Date Lynne Ramos MD PCP - General Internal Medicine 03/23/16 05/03/20 Eileen Aleman MD PCP - General Internal Medicine 05/04/20 09/14/21 [facility], Pcp PCP - General Internal Medicine 09/15/21 01/05/22 Lynne Ramos MD PCP - General Internal Medicine 01/06/22 Suzi Kelly PA-C Specialist Internal Medicine 01/06/22 Venancio Brown MD [address] [address] Specialist Cardiovascular Disease 01/06/22 documented as of this encounter
--- OUTSIDE RECORDS SUMMARY | 2024-04-10 17:45 | XMS_ITS | Encounter Summary ---
Author Organization [facility] Address [address] [place] [address] Care Team Providers Care Advanced Manufacturing Technician Name Role Phone Community, Pcp Primary Care Provider UnavailLynne Barnes MD Primary Care Provider UnavailSuzi Guzman PA-C Unavailable Unavailable Venancio Brown MD Unavailable [phone] Encounter Details Date Type Department Care Team Description 11/11/2021 Release of Information Medical Records [address] [place] [id number] Abstract, Provider Social History Tobacco Use Types [...] on filedocumented in this encounter Care Teams Advanced Manufacturing Technician Relationship Specialty Start Date End Date Community, Pcp PCP - General Internal Medicine 09/15/21 01/05/22 Lynne Ramos MD PCP - General Internal Medicine 01/06/22 Suzi Kelly PA-C Specialist Internal Medicine 01/06/22 Venancio Brown MD [address] [place] [address] Specialist Cardiovascular Disease 01/06/22 documented as of this encounter
--- OUTSIDE RECORDS SUMMARY | 2024-04-10 17:45 | XMS_ITS | Encounter Summary ---
Author Organization [facility] Address [address] [place] [address] Care Team Providers Care Ferryboat Ticket Taker Name Role Phone Lynne Ramos MD Primary Care Provider Unavaila Suzi Solorio PA-C Unavailable Unavailable Venancio Brown MD Unavailable [phone] Encounter Details Date Type Department Care Team Description 06/14/2022 Pt. Non Urgent Medical Question Gastroenterology - [place] [address] [facility] [address] [place] [id number] Gary De Jesus MD [address] [place] [address] Social History Tobacco Use Types Packs/Day Years [...] on filedocumented in this encounter Care Teams Ferryboat Ticket Taker Relationship Specialty Start Date End Date Lynne Ramos MD PCP - General Internal Medicine 01/06/22 Suzi Kelly PA-C Specialist Internal Medicine 01/06/22 Venancio Brown MD 300 [facility] [address] [place], [place] [address] Specialist Cardiovascular Disease 01/06/22 documented as of this encounter
--- OUTSIDE RECORDS SUMMARY | 2024-04-10 17:45 | XMS_ITS | Encounter Summary ---
Author Organization [facility] Address [address] [place] [address] Care Team Providers Care Weaver Tire Cord Name Role Phone Lynne Ramos MD Primary Care Provider Eileen Diaz MD Primary Care Provider [facility], Pcp Primary Care Provider Lynne Seaman MD Primary Care Provider Suzi Anthony PA-C Unavailable Unavailable Venancio Brown MD Unavailable [phone] Encounter Details Date Type Department Care Team Description 08/07/2019 [facility] [place] Medical Records [address] [place] [address] Abstract, Provider Social History Tobacco Use Types [...] on filedocumented in this encounter Care Teams Weaver Tire Cord Relationship Specialty Start Date End Date Lynne Ramos MD PCP - General Internal Medicine 03/23/16 05/03/20 Eileen Aleman MD PCP - General Internal Medicine 05/04/20 09/14/21 [facility], [facility] PCP - General Internal Medicine 09/15/21 01/05/22 Lynne Ramos MD PCP - General Internal Medicine 01/06/22 Suzi Kelly PA-C Specialist Internal Medicine 01/06/22 Venancio Brown MD [address] [place] [address] Specialist Cardiovascular Disease 01/06/22 documented as of this encounter
--- OUTSIDE RECORDS SUMMARY | 2024-04-10 17:45 | XMS_ITS | Clinical Summary ---
Author Organization 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 [place] [address] POS [id number] MEDICAID-M A MEDICAID-[place] [id number] 2022-Pres ent [place] [place] [address] [place] [address] MEDICAID [id number] ICE Care Teams Financial Aid Coordinator Relationship Specialty Start Date End Date Lynne Ramos MD PCP - General Internal Medicine 01/06/22 Suzi Kelly PA-C Specialist Internal Medicine 01/06/22 Venancio Brown MD [address] [place] [address] Specialist Cardiovascular Disease 01/06/22
--- OUTSIDE RECORDS SUMMARY | 2024-04-10 17:45 | XMS_ITS | Clinical Summary ---
Author Organization [facility] [address] [facility] Address [address] [place] [address] Phone Care Team Providers Care Burial Vault Maker Name Role Phone Lynne Jean MD Primary Care Provider [phone] Allergies Active Allergy Reactions Criticality Noted Date [...] patient's history, symptoms may be related to [place]'s for which she is undergoing a work-up [...] 3:45 PM EST - 02/29/2024 11:46 PM [facility] Emergency [address] [place] [address] Vickey Sharma MD King, Marie A, MD Chest pain, unspecified type (Primary Dx) Discharge Disposition: Left Against Medical Advice 02/22/2024 10:50 PM EST - 02/24/2024 3:25 PM [facility] [address] [place] [address] Pamela Sommer MD Jones, Christopher, MD Flores, [...] older (Afluria) 3 years and older 11/23/2018 [employer] SARS-CoV-2 COVID-19, mRNA, LNP-S, preservative free 03/29/2021,02/18/2020,01/26/2020 [...] TONSILLECTOMY ADENOIDECTOMY, BILATERAL MYRINGOTOMY AND TUBES PROCEDURE: [place] TONSILLECTOMY & ADENOIDECTOMY <AGE 12 BREAST REDUCTION 2000 PROCEDURE: [place] BREAST REDUCTION CHOLECYSTECTOMY 08/17/2016 PROCEDURE: [place] LAPAROSCOPY SURG CHOLECYSTECTOMY; COMMENT: Laparoscopic cholecystectomy; [place]; Dr. Matos OTHER SURGICAL HISTORY PROCEDURE: TOTAL DISC ARTHRP ANT APW/DISCECTOMY CRV 3+; COMMENT: 2017 OTHER SURGICAL HISTORY PROCEDURE: [place] ANESTHESIA CERVICAL SPINE & CORD NOS Medical [...] by: Shaun Troncoso MD on 03/01/2024 04:26:[address] [facility] B Zachary WARD IM CT PROCEDURES Edited [...] No significant change from the prior study. [id number] -------- FINAL REPORT -------- Dictated By: Chiki Sebastian Dictated Date: 02/29/2024 14:44 ET Assigned Physician: Chiki Sebastian Reviewed and Electronically Signed By: Chiki Sebastian Signed Date: 02/29/2024 14:45 ET Workstation ID: [id number] Transcribed By: Self Edit Transcribed Date: 02/29/2024 [...] disease. No significant change from theprior study. [id number] -------- FINAL REPORT -------- Dictated By: Chiki Sebastian Dictated Date: 02/29/2024 14:44 ET Assigned Physician: Chiki Sebastian Reviewed and Electronically Signed By: Chiki Sebastian Signed Date: 02/29/2024 14:45 ET Workstation ID: [id number] Transcribed By: Self Edit Transcribed Date: 02/29/2024 14:44 ET us Vickey Sharma MD IMG XR PROCEDURES Final Result * Troponin I high sensitivity (02/29/2024 2:02 PM EST) Only the most recent of4 resultswithin the time period is included. High Sensitivity Troponin I 11 <=54 ng/L LAB CHEMISTRY METHOD 02/29/2024 3:30 PM EST [facility] Blood Venous blood specimen / Unknown Venipuncture / Unknown 02/29/2024 2:02 PM EST 02/29/2024 2:58 PM EST Narrative [facility] - 02/29/2024 3:30 PM EST High levels of biotin in samples may falsely decrease hsTroponin values. ??Use caution when interpreting hsTroponin results in patients taking biotin who exhibit renal impairment (eGFR <60) or in patients taking more than 20 mg/day of biotin. us Vickey Sharma MD LAB BLOOD ORDERABLES Final Resu lt [facility] [address] [place] [address], * (ABNORMAL) CBC auto differential (02/29/2024 12:02 PM EST) Only the most recent of3 resultswithin the time period is included. WBC 9.9 4.8 - 10.8 K/mcL LAB HEMETOLOGY METHOD 02/29/2024 1:38 PM [facility] RBC 5.40(H) 3.80 - 4.80 M/mcL LAB HEMETOLOGY METHOD 02/29/2024 1:38 PM [facility] Hemoglobin 15.6 11.5 - 16.0 g/dL LAB HEMETOLOGY METHOD 02/29/2024 1:38 PM [facility] Hematocrit 47.9(H) 35.0 - 47.0 % LAB HEMETOLOGY METHOD 02/29/2024 1:38 PM [facility] MCV 88.5 79.0 - 98.0 FL LAB HEMETOLOGY METHOD 02/29/2024 1:38 PM [facility] MCH 28.8 27.0 - 32.0 pcg LAB HEMETOLOGY METHOD 02/29/2024 1:38 PM [facility] MCHC 32.6 32.0 - 37.0 g/dL LAB HEMETOLOGY METHOD 02/29/2024 1:38 PM [facility] RDW 13.2 11.0 - 15.0 % LAB HEMETOLOGY METHOD 02/29/2024 1:38 PM [facility] Platelets 539(H) 130 - 400 K/mcL LAB HEMETOLOGY METHOD 02/29/2024 1:38 PM [facility] MPV 9.6 7.0 - 11.0 FL LAB HEMETOLOGY METHOD 02/29/2024 1:38 PM [facility] NRBC 0.0 <1.0 % LAB HEMETOLOGY METHOD 02/29/2024 1:38 PM [facility] NRBC Absolute 0.00 <0.10 K/mcL LAB HEMETOLOGY METHOD 02/29/2024 1:38 PM [facility] Neutrophils Relative 63.4 % LAB HEMETOLOGY METHOD 02/29/2024 1:38 PM [facility] Lymphocytes Relative 27.1 % LAB HEMETOLOGY METHOD 02/29/2024 1:38 PM [facility] Monocytes Relative 6.2 % LAB HEMETOLOGY METHOD 02/29/2024 1:38 PM [facility] Eosinophils Relative 2.2 % LAB HEMETOLOGY METHOD 02/29/2024 1:38 PM [facility] Basophils Relative 0.8 % LAB HEMETOLOGY METHOD 02/29/2024 1:38 PM [facility] Immature Granulocytes Relative 0.3 % LAB HEMETOLOGY METHOD 02/29/2024 1:38 PM [facility] Neutrophils Absolute 6.30 1.50 - 7.00 K/mcL LAB HEMETOLOGY METHOD 02/29/2024 1:38 PM [facility] Lymphocytes Absolute 2.69 1.00 - 5.00 K/mcL LAB HEMETOLOGY METHOD 02/29/2024 1:38 PM EST [facility] Monocytes Absolute 0.62 0.20 - 1.00 K/mcL LAB HEMETOLOGY METHOD 02/29/2024 1:38 PM EST [facility] Eosinophils Absolute 0.22 0.00 - 0.50 K/mcL LAB HEMETOLOGY METHOD 02/29/2024 1:38 PM EST [facility] Basophils Absolute 0.08 0.00 - 0.20 K/mcL LAB HEMETOLOGY METHOD 02/29/2024 1:38 PM EST [facility] Immature Granulocytes Absolute 0.03 0.00 - 0.03 K/[facility] LAB HEMETOLOGY METHOD 02/29/2024 1:38 PM EST [facility] Blood Venous blood specimen / Unknown Venipuncture / Unknown 02/29/2024 12:02 PM EST 02/29/2024 1:18 PM EST us Vickeyfrederick Sharma MD LAB BLOOD ORDERABLES Final Resu lt [facility] [address] [place] [address], * (ABNORMAL) Protime-INR (02/29/2024 12:02 PM EST) Only the most recent of2 resultswithin the time period is included. Protime 22.2(H) 10.6 - 13.9 sec LAB COAGULATION METHOD 02/29/2024 1:39 PM EST [facility] INR 1.8 LAB COAGULATION METHOD 02/29/2024 1:39 PM EST [facility] Blood Venous blood specimen / Unknown Venipuncture / Unknown 02/29/2024 12:02 PM EST 02/29/2024 1:18 PM EST us Vickeyfrederick Sharma MD LAB BLOOD ORDERABLES Final Resu lt Performing Organization Address [facility]/ZIP Co de Phone Number [facility] [address] [place] [address], * hCG, serum, qualitative (02/29/2024 12:02 PM EST) Pathologist [facility] hCG Qual Negative Negative 02/29/2024 5:54 PM EST [facility] Blood Venous blood specimen / Unknown Venipuncture / Unknown 02/29/2024 12:02 PM EST 02/29/2024 1:18 PM EST Vickey Sharma MD LAB BLOOD ORDERABLES Final Resu lt Performing Organization Address [facility] de Phone Number [facility] [address] [place] [address], [place] [phone] * B-type natriuretic peptide (02/29/2024 12:02 PM EST) Only the most recent of2 resultswithin the time period is included. [facility] BNP 3 <=100 pcg/mL LAB CHEMISTRY METHOD 02/29/2024 2:05 PM EST [facility] Blood Venous blood specimen / Unknown Venipuncture / Unknown 02/29/2024 12:02 PM EST 02/29/2024 1:18 PM EST us Vickey Sharma MD LAB BLOOD ORDERABLES Final Resu lt Performing Organization Address [facility] Co de Phone Number [facility] [address] [place] [address], [place] [phone] * (ABNORMAL) Basic metabolic panel (02/29/2024 12:02 PM EST) Only the most recent of2 resultswithin the time period is included. [facility] Sodium 130(L) 133 - 145 mmol/L LAB CHEMISTRY METHOD 02/29/2024 1:46 PM EST [facility] Potassium 3.8 3.5 - 5.5 mmol/L LAB CHEMISTRY METHOD 02/29/2024 1:46 PM [facility] Chloride 94(L) 96 - 110 mmol/L LAB CHEMISTRY METHOD 02/29/2024 1:46 PM [facility] CO2 27 21 - 32 mmol/L LAB CHEMISTRY METHOD 02/29/2024 1:46 PM [facility] Anion Gap 9 3 - 11 LAB CHEMISTRY METHOD 02/29/2024 1:46 PM [facility] Glucose 153(H) 70 - 100 mg/dL LAB CHEMISTRY METHOD 02/29/2024 1:46 PM [facility] BUN 22 5 - 25 mg/dL LAB CHEMISTRY METHOD 02/29/2024 1:46 PM [facility] Creatinine 1.34(H) 0.50 - 1.10 mg/dL LAB CHEMISTRY METHOD 02/29/2024 1:46 PM [facility] eGFR 50(L) >=60 mL/min/1. 73m2 LAB CHEMISTRY METHOD 02/29/2024 1:46 PM [facility] Comment:Calculation based on the??Chronic Kidney Disease Epidemiology Collaboration (CKD-EPI) equation refit??without adjustment for race. BUN/Creatinine Ratio 16.4 LAB CHEMISTRY METHOD 02/29/2024 1:46 PM [facility] Calcium 10.0 8.5 - 10.5 mg/dL LAB CHEMISTRY METHOD 02/29/2024 1:46 PM [facility] Blood Venous blood specimen / Unknown Venipuncture / Unknown 02/29/2024 12:02 PM EST 02/29/2024 1:18 PM EST us Vickeyfrederick Sharma MD LAB BLOOD ORDERABLES Final Resu lt [facility] [address] [place] [address], [place] [phone] * ECG 12 lead (02/29/2024 10:49 AM EST) Only the most recent of3 resultswithin the time period is included. Ventricular Rate ECG 104 BPM GEMUSE Atrial Rate 104 BPM GEMUSE P-R Interval 134 ms GEMUSE QRS Duration 90 ms GEMUSE Q-T Interval 364 ms GEMUSE QTc 478 ms GEMUSE P Wave Meridian 38 degrees GEMUSE R Mer[place] -16 degrees GEMUSE T Mer[place] 21 degrees GEMUSE ECG Interpretation Sinus tachycardia [...] Signed Date: 02/23/2024 12:37 ET Workstation ID: [id number] Transcribed By: Self Edit Transcribed Date: 02/23/2024 [...] Signed Date: 02/23/2024 12:37 ET Workstation ID: [id number] Transcribed By: Self Edit Transcribed Date: 02/23/2024 12:30 ET us Venancio Kaye MD CV VASCULAR PROCEDURES Yue l Result * (ABNORMAL) C-reactive protein (02/23/2024 9:23 AM EST) Only the most recent of2 resultswithin the time period is included. C-Reactive Protein 1.38(H) <=0.50 mg/dL LAB CHEMISTRY METHOD 02/23/2024 10:12 AM EST [facility] Blood Venous blood specimen / Unknown Venipuncture / Unknown 02/23/2024 9:23 AM EST 02/23/2024 9:27 AM EST Senia Ulloa NP LAB BLOOD ORDERABLES Final Res ult Performing Organization Address City/[facility]/ZIP Co de Phone Number [facility] [address] [place] [address], [place] [phone] * Lavender tube (02/23/2024 9:21 AM EST) [facility] Extra Tube Hold for add-ons. 02/23/2024 11:02 AM EST [facility] Comment:Auto resulted. Blood Venous blood specimen / Unknown Venipuncture / Unknown 02/23/2024 9:21 AM EST 02/23/2024 9:27 AM EST Pamela Sommer MD LAB BLOOD ORDERABLES Fin al Result Performing Organization Address [facility]/ZIP Co de Phone Number [facility] [address] [place] [address], [place] [phone] * (ABNORMAL) Activated Partial Thromboplastin Time - STAT (02/23/2024 7:31 AM EST) [facility] aPTT 42.3(H) 24.1 - 39.3 sec LAB COAGULATION METHOD 02/23/2024 8:21 AM EST [facility] Blood Venous blood specimen / Unknown Venipuncture / Unknown 02/23/2024 7:31 AM EST 02/23/2024 7:52 AM EST Venancio Kaye MD LAB BLOOD ORDERABLES Final Result Performing Organization Address City/[facility]/ZIP Co de Phone Number [facility] [address] [place] [address], [place] [phone] * Respiratory virus panel molecular study (02/23/2024 12:36 AM EST) [facility] Adenovirus Detection by PCR Not Detected Not Detected LAB MICROBIOLOGY METHOD 02/23/2024 1:45 AM EST [facility] Influenza A PCR Not Detected Not Detected LAB MICROBIOLOGY METHOD 02/23/2024 1:45 AM EST [facility] Influenza B PCR Not Detected Not Detected LAB MICROBIOLOGY METHOD 02/23/2024 1:45 AM EST [facility] Coronavirus 229E Not Detected Not Detected LAB MICROBIOLOGY METHOD 02/23/2024 1:45 AM [facility] Coronavirus HKU1 Not Detected Not Detected LAB MICROBIOLOGY METHOD 02/23/2024 1:45 AM [facility] Coronavirus OC43 Not Detected Not Detected LAB MICROBIOLOGY METHOD 02/23/2024 1:45 AM [facility] Coronavirus NL63 Not Detected Not Detected LAB MICROBIOLOGY METHOD 02/23/2024 1:45 AM [facility] Parainfluenza Virus 1 Not Detected Not Detected LAB MICROBIOLOGY METHOD 02/23/2024 1:45 AM [facility] Parainfluenza Virus 2 Not Detected Not Detected LAB MICROBIOLOGY METHOD 02/23/2024 1:45 AM [facility] Parainfluenza Virus 3 Not Detected Not Detected LAB MICROBIOLOGY METHOD 02/23/2024 1:45 AM [facility] Parainfluenza Virus 4 Not Detected Not Detected LAB MICROBIOLOGY METHOD 02/23/2024 1:45 AM [facility] RSV PCR Not Detected Not Detected LAB MICROBIOLOGY METHOD 02/23/2024 1:45 AM [facility] Human Metapneumovirus A and B Not Detected Not Detected LAB MICROBIOLOGY METHOD 02/23/2024 1:45 AM [facility] Rhinovirus/Entero virus Not Detected Not Detected LAB MICROBIOLOGY METHOD 02/23/2024 1:45 AM [facility] Bordetella pertussis Not Detected Not Detected LAB MICROBIOLOGY METHOD 02/23/2024 1:45 AM [facility] Bordetella parapertussis Not Detected Not Detected LAB MICROBIOLOGY METHOD 02/23/2024 1:45 AM EST [facility] Mycoplasma pneumo by PCR Not Detected Not Detected LAB MICROBIOLOGY METHOD 02/23/2024 1:45 AM EST [facility] Chlamydia pneumoniae Not Detected Not Detected LAB MICROBIOLOGY METHOD 02/23/2024 1:45 AM EST [facility] SARS COV-2 Not Detected Not Detected LAB MICROBIOLOGY METHOD 02/23/2024 1:45 AM EST [facility] Swab Nasopharyngeal structure / Unknown Non-blood Collection / Unknown 02/23/2024 12:36 AM EST 02/23/2024 12:49 AM EST [facility] - 02/23/2024 1:45 AM EST Testing was performed using the [employer] Respiratory Pathogen PCR Assay. All results must [...] MICROBIOLOGY - GENERA L ORDERABLES Final Result [facility] [address] [place] [address], * (ABNORMAL) D-dimer, quantitative (02/23/2024 12:26 AM EST) D-Dimer, Quant (D-DU) 309(H) <=230 ng/mL DDU LAB COAGULATION METHOD 02/23/2024 1:29 AM EST [facility] Blood Venous blood specimen / Unknown Venipuncture / Unknown 02/23/2024 12:26 AM EST 02/23/2024 12:49 AM EST [facility] - 02/23/2024 1:29 AM EST D-Dimer <230 ng/mL (D-Dimer units) is the threshold for exclusion of DVT/PE. D-Dimer may be elevated in: Critically ill, severely infected, trauma patients, DIC, acute CVA, acute UT, unstable angina, AF, old age, , and smoking. D-Dimer may be decreased with: Initiation of heparin therapy and oral anticoagulants. Pamela Sommer MD LAB BLOOD ORDERABLES Fin al Result [facility] [address] [place] [address], * Procalcitonin (02/22/2024 8:55 PM EST) Procalcitonin 0.03 <=0.16 ng/mL LAB CHEMISTRY METHOD 02/23/2024 10:13 AM EST [facility] Blood Venous blood specimen / Unknown Venipuncture / Unknown 02/22/2024 8:55 PM EST 02/22/2024 9:03 PM EST Narrative [facility] - 02/23/2024 10:13 AM EST [...] BLOOD ORDERABLES Final Result Performing Organization Address City/[facility]/ZIP Co de Phone Number [facility] [address] [place] [address], [place] [phone] * (ABNORMAL) Magnesium (02/22/2024 8:55 PM EST) [facility] Magnesium 1.8(L) 1.9 - 2.6 mg/dL LAB CHEMISTRY METHOD 02/22/2024 9:30 PM EST [facility] Blood Venous blood specimen / Unknown Venipuncture / Unknown 02/22/2024 8:55 PM EST 02/22/2024 9:03 PM EST [facility] BLOOD ORDERABLES Yue l Result Performing Organization Address [facility]/ZIP Co de Phone Number [facility] [address] [place] [address], [place] [phone] * Lipase (02/22/2024 8:55 PM EST) [facility] Lipase 34 13 - 75 unit/L LAB CHEMISTRY METHOD 02/22/2024 9:30 PM EST [facility] Blood Venous blood specimen / Unknown Venipuncture / Unknown 02/22/2024 8:55 PM EST 02/22/2024 9:03 PM EST [facility] LAB BLOOD ORDERABLES Yue l Result Performing Organization Address City/[facility]/ZIP Co de Phone Number [facility] [address] [place] [address], [place] [phone] * (ABNORMAL) Comprehensive metabolic panel (02/22/2024 8:55 PM EST) [facility] Sodium 136 133 - 145 mmol/L LAB CHEMISTRY METHOD 02/22/2024 9:30 PM EST [facility] Potassium 3.8 3.5 - 5.5 mmol/L LAB CHEMISTRY METHOD 02/22/2024 9:30 PM [facility] Chloride 103 96 - 110 mmol/L LAB CHEMISTRY METHOD 02/22/2024 9:30 PM [facility] CO2 29 21 - 32 mmol/L LAB CHEMISTRY METHOD 02/22/2024 9:30 PM [facility] Anion Gap 4 3 - 11 LAB CHEMISTRY METHOD 02/22/2024 9:30 PM [facility] Glucose 139(H) 70 - 100 mg/dL LAB CHEMISTRY METHOD 02/22/2024 9:30 PM [facility] BUN 10 5 - 25 mg/dL LAB CHEMISTRY METHOD 02/22/2024 9:30 PM [facility] Creatinine 1.10 0.50 - 1.10 mg/dL LAB CHEMISTRY METHOD 02/22/2024 9:30 PM [facility] eGFR 63 >=60 mL/min/1. 73m2 LAB CHEMISTRY METHOD 02/22/2024 9:30 PM [facility] Comment:Calculation based on the??Chronic Kidney Disease Epidemiology Collaboration (CKD-EPI) equation refit??without adjustment for race. BUN/Creatinine Ratio 9.1 LAB CHEMISTRY METHOD 02/22/2024 9:30 PM [facility] Calcium 8.7 8.5 - 10.5 mg/dL LAB CHEMISTRY METHOD 02/22/2024 9:30 PM [facility] AST (SGOT) 23 10 - 42 unit/L LAB CHEMISTRY METHOD 02/22/2024 9:30 PM [facility] ALT (SGPT) 44 10 - 60 unit/L LAB CHEMISTRY METHOD 02/22/2024 9:30 PM [facility] Alkaline Phosphatase 95 42 - 121 unit/L LAB CHEMISTRY METHOD 02/22/2024 9:30 PM [facility] Total Protein 7.3 6.0 - 8.0 g/dL LAB CHEMISTRY METHOD 02/22/2024 9:30 PM [facility] Albumin 3.3 3.2 - 5.0 g/dL LAB CHEMISTRY METHOD 02/22/2024 9:30 PM EST [facility] Total Bilirubin 0.3 0.0 - 1.4 mg/dL LAB CHEMISTRY METHOD 02/22/2024 9:30 PM EST [facility] ([facility] Blood Venous blood specimen / Unknown Venipuncture / Unknown 02/22/2024 8:55 PM EST 02/22/2024 9:03 PM EST Anahi Cavazosny Fercho DO LAB BLOOD ORDERABLES Yue l Result [facility] [address] [place] [address], * Cervical Cancer Screening: HPV (08/26/2021) Pathologist [facility] Cervical Cancer Screening: HPV abstracted, negative Historical [...] currently active code status orders. Care Teams Burial Vault Maker Relationship Specialty Start Date End Date Lynne Jean MD PCP - General Endocrinology 02/29/24
--- OUTSIDE RECORDS SUMMARY | 2024-04-10 17:45 | XMS_ITS | Encounter Summary ---
Author Organization [facility] Address [address] [place] [address] Care Team Providers Care Stoper Name Role Phone Lynne Ramos MD Primary Care Provider Suzi Anthony PA-C Unavailable Unavailable Venancio Brown MD Unavailable [phone] Reason for Visit * Reason Comments E-prescribe Rx Request Encounter Details Date Type Department Care Team Description 09/05/2023 Refill OBGYN - [place] [address] [place] [id number] Wesley Riddle DO E-prescribe Rx Request Social [...] EDT WHEN WAS THE PATIENTS LAST ANNUAL SCREEN MACHINE OPERATOR EXAM? 08/26/21 Does patient have an upcoming [...] [employer] / Plan: POS $ RUPERTO MACIEL [id number] JENA TRADITNAL / Product Type: POS [id number] documented in this encounter Plan of Treatment Not on file documented as of this encounter Visit Diagnoses Not on filedocumented in this encounter Care Teams Stoper Relationship Specialty Start Date End Date Lynne Ramos MD PCP - General Internal Medicine 01/06/22 Suzi Kelly PA-C Specialist Internal Medicine 01/06/22 Vneancio Brown MD [address] [place] [address] Specialist Cardiovascular Disease 01/06/22 documented as of this encounter
--- OUTSIDE RECORDS SUMMARY | 2024-04-10 17:45 | XMS_ITS | Encounter Summary ---
Author Organization [facility] Address [address] [place] [address] Care Team Providers Care Heavy Forger Name Role Phone Lynne Ramos MD Primary Care Provider Eileen Diaz MD Primary Care Provider Spring cruz [facility], Pcp Primary Care Provider Lynne Seaman MD Primary Care Provider Suzi Anthony PA-C Unavailable Unavailable Venancio Brown MD Unavailable [phone] Encounter Details Date Type Department Care Team Description 03/02/2018 [facility] Medical Records [address] [place] [address] Abstract, Provider Social History Tobacco Use Types [...] on filedocumented in this encounter Care Teams Heavy Forger Relationship Specialty Start Date End Date Lynne Ramos MD PCP - General Internal Medicine 03/23/16 05/03/20 Eileen Aleman MD PCP - General Internal Medicine 05/04/20 09/14/21 [facility] PCP - General Internal Medicine 09/15/21 01/05/22 yLnne Ramos MD PCP - General Internal Medicine 01/06/22 Suzi Kelly PA-C Specialist Internal Medicine 01/06/22 Venancio Brown MD [address] [place] [address] Specialist Cardiovascular Disease 01/06/22 documented as of this encounter
--- OUTSIDE RECORDS SUMMARY | 2024-04-10 17:45 | XMS_ITS | Encounter Summary ---
Author Organization [facility] Address [address] [place] [address] Care Team Providers Care Manager Financial Services Name Role Phone Eileen Aleman MD Primary Care Provider [place], Pcp Primary Care Provider Lynne Seaman MD Primary Care Provider Suzi Anthony PA-C Unavailable Unavailable Venancio Brown MD Unavailable Encounter Details Date Type Department Care Team Description 07/29/2020 Release of Information Medical Records [address] [place] [id number] Abstract, Provider Social History Tobacco Use Types [...] filedocumented in this encounter Care Teams Manager Financial Services Relationship Specialty Start Date End Date Eileen Aleman MD PCP - General Internal Medicine 05/04/20 09/14/21 [facility], Pcp PCP - General Internal Medicine 09/15/21 01/05/22 Lynne Ramos MD PCP - General Internal Medicine 01/06/22 Suzi Kelly PA-C Specialist Internal Medicine 01/06/22 Venancio Brown MD [address] [place] [id number] Specialist Cardiovascular Disease 01/06/22 documented as of this encounter
--- OUTSIDE RECORDS SUMMARY | 2024-04-10 17:45 | XMS_ITS | Encounter Summary ---
Author Organization [facility] Address [address] [place] [address] Care Team Providers Care Instrument Repairer Helper Name Role Phone Lynne Ramos MD Primary Care Provider Eileen Diaz MD Primary Care Provider Spring cruz [facility], Pcp Primary Care Provider Lynne Seaman MD Primary Care Provider Suzi Anthony PA-C Unavailable Unavailable Venancio Brown MD Unavailable [phone] Encounter Details Date Type Department Care Team Description 09/13/2017 [facility] Medical Records [address] [place] [address] Abstract, Provider Social History Tobacco Use Types [...] on filedocumented in this encounter Care Teams Instrument Repairer Helper Relationship Specialty Start Date End Date Lynne Ramos MD PCP - General Internal Medicine 03/23/16 05/03/20 Eileen Aleman MD PCP - General Internal Medicine 05/04/20 09/14/21 [facility], Pcp PCP - General Internal Medicine 09/15/21 01/05/22 Lynne Ramos MD PCP - General Internal Medicine 01/06/22 Suzi Kelly PA-C Specialist Internal Medicine 01/06/22 Venancio Brown MD [address] [place] [address] Specialist Cardiovascular Disease 01/06/22 documented as of this encounter
--- OUTSIDE RECORDS SUMMARY | 2024-04-10 17:45 | XMS_ITS | Encounter Summary ---
Author Organization [facility] Address [address] [place] [address] Care Team Providers Care Plant Controls Specialist Name Role Phone Lynne Ramos MD Primary Care Provider Eileen Diaz MD Primary Care Provider [facility], Pcp Primary Care Provider Lynne Seaman MD Primary Care Provider Suzi Anthony PA-C Unavailable Unavailable Venancio Brown MD Unavailable [phone] Encounter Details Date Type Department Care Team Description 06/25/2019 [facility] Medical Records [address] [place] [address] Abstract, Provider Social History Tobacco Use Types [...] on filedocumented in this encounter Care Teams Plant Controls Specialist Relationship Specialty Start Date End Date Lynne Ramos MD PCP - General Internal Medicine 03/23/16 05/03/20 Eileen Aleman MD PCP - General Internal Medicine 05/04/20 09/14/21 [facility], [facility] PCP - General Internal Medicine 09/15/21 01/05/22 Lynne Ramos MD PCP - General Internal Medicine 01/06/22 Suzi Kelly PA-C Specialist Internal Medicine 01/06/22 Venancio Brown MD [address] [place] [address] Specialist Cardiovascular Disease 01/06/22 documented as of this encounter
--- OUTSIDE RECORDS SUMMARY | 2024-04-10 17:45 | XMS_ITS | Encounter Summary ---
Author Organization [facility] Address [address] [place] [address] Care Team Providers Care Diesel Engine Assembler Name Role Phone Community, Pcp Primary Care Provider Lynne Seaman MD Primary Care Provider Suzi Anthony PA-C Unavailable Unavailable Venancio Brown MD Unavailable [phone] Encounter Details Date Type Department Care Team Description 11/05/2021 [facility] Medical Records [address] [place] [id number] Abstract, Provider Social History Tobacco Use Types [...] on filedocumented in this encounter Care Teams Diesel Engine Assembler Relationship Specialty Start Date End Date Community, Pcp PCP - General Internal Medicine 09/15/21 01/05/22 Lynne Ramos MD PCP - General Internal Medicine 01/06/22 Suzi Kelly PA-C Specialist Internal Medicine 01/06/22 Venancio Brown MD [address] [place] [address] Specialist Cardiovascular Disease 01/06/22 documented as of this encounter
--- OUTSIDE RECORDS SUMMARY | 2024-04-10 17:45 | XMS_ITS | Encounter Summary ---
Author Organization [facility] Address [address] [place] [address] Care Team Providers Care Manager Food Name Role Phone Community, Pcp Primary Care Provider Lynne Seaman MD Primary Care Provider Suzi Anthony PA-C Unavailable Unavailable Venancio Brown MD Unavailable [phone] Encounter Details Date Type Department Care Team Description 11/09/2021 SC[facility] Medical [facility] Neurosurgery [place] [address] [id number] Jimbo Galeano PA-C [address] [address] Social History Tobacco Use Types Packs/Day Years [...] filedocumented in this encounter Care Teams Manager Food Relationship Specialty Start Date End Date Community, Pcp PCP - General Internal Medicine 09/15/21 01/05/22 Lynne Ramos MD PCP - General Internal Medicine 01/06/22 Suzi Kelly PA-C Specialist Internal Medicine 01/06/22 Venancio Brown MD [address] [address] Specialist Cardiovascular Disease 01/06/22 documented as of this encounter
--- OUTSIDE RECORDS SUMMARY | 2024-04-10 17:45 | XMS_ITS | Encounter Summary ---
Author Organization [facility] Address [address] [place] [address] Care Team Providers Care Locomotive Engineer Electric Name Role Phone Community, Pcp Primary Care Provider Lynne Seaman MD Primary Care Provider Suzi Anthony PA-C Unavailable Unavailable Venancio Brown MD Unavailable [phone] Encounter Details Date Type Department Care Team Description 11/08/[address] [facility] Medical [facility] Neurosurgery [place] 175 [facility] [address] [place] [phone] Karen Hair MD [address] [id number] Social History Tobacco Use Types Packs/Day Years [...] on filedocumented in this encounter Care Teams Locomotive Engineer Electric Relationship Specialty Start Date End Date Community, Pcp PCP - General Internal Medicine 09/15/21 01/05/22 Lynne Ramos MD PCP - General Internal Medicine 01/06/22 Suzi Kelly PA-C Specialist Internal Medicine 01/06/22 Venancio Brown MD [address] [address] Specialist Cardiovascular Disease 01/06/22 documented as of this encounter
--- OUTSIDE RECORDS SUMMARY | 2024-04-10 17:45 | XMS_ITS | Encounter Summary ---
Author Organization [facility] Address [address] [place] [address] Care Team Providers Care Photographic Equipment Technician Name Role Phone Eileen Aleman MD Primary Care Provider [facility], Pcp Primary Care Provider Lynne Seaman MD Primary Care Provider Suzi Anthony PA-C Unavailable Unavailable Venancio Brown MD Unavailable [phone] Reason for Visit * Reason Onset Date Comments BP-Quality 09/02/2020 Encounter Details Date Type Department Care Team Description 09/02/2020 Telephone Medicine/Pediatrics - [address] [phone] Eileen Aleman MD BP-Quality Social History Tobacco [...] on filedocumented in this encounter Care Teams Photographic Equipment Technician Relationship Specialty Start Date End Date Eileen Aleman MD PCP - General Internal Medicine 05/04/20 09/14/21 [facility] PCP - General Internal Medicine 09/15/21 01/05/22 Lynne Ramos MD PCP - General Internal Medicine 01/06/22 Suzi Kelly PA-C Specialist Internal Medicine 01/06/22 Venancio Brown MD [address] [place] [address] Specialist Cardiovascular Disease 01/06/22 documented as of this encounter
--- OUTSIDE RECORDS SUMMARY | 2024-04-10 17:45 | XMS_ITS | Encounter Summary ---
Author Organization [facility] Address [address] [place] [address] Care Team Providers Care Auto Headlight Mechanic Name Role Phone Lynne Ramos MD Primary Care Provider Suzi Anthony PA-C Unavailable Unavailable Venancio Brown MD Unavailable [phone] Encounter Details Date Type Department Care Team Description 01/21/2022 Pt. Non Urgent Medical Question Cardio PVC POC 154 [address] [facility] [address] [place] [address] Venancio Brown MD 300 [facility] [address] [place] [address] Social History Tobacco Use Types Packs/Day Years [...] on filedocumented in this encounter Care Teams Auto Headlight Mechanic Relationship Specialty Start Date End Date Lynne Ramos MD PCP - General Internal Medicine 01/06/22 Suzi Kelly PA-C Specialist Internal Medicine 01/06/22 Venancio Brown MD [address] [place] [address] Specialist Cardiovascular Disease 01/06/22 documented as of this encounter
--- OUTSIDE RECORDS SUMMARY | 2024-04-10 17:45 | XMS_ITS | Encounter Summary ---
Author Organization [facility] Address [address] [place] [address] Care Team Providers Care Physician General Internal Medicine Name Role Phone Lynne Ramos MD Primary Care Provider Suzi Anthony PA-C Unavailable Unavailable Venancio Brown MD Unavailable [phone] Reason for Visit * Reason Onset Date Comments Blood Pressure Elevated 01/11/2022 Encounter Details Date Type Department Care Team Description 01/11/2022 Telephone Cardio PVC [facility] [address] 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
--- OUTSIDE RECORDS SUMMARY | 2024-04-10 17:45 | XMS_ITS | Encounter Summary ---
Author Organization [facility] Address [address] [place] [address] Care Team Providers Care Furniture Builder Name Role Phone Eileen Aleman MD Primary Care Provider [place], Pcp Primary Care Provider Lynne Seaman MD Primary Care Provider Suzi Anthony PA-C Unavailable Unavailable Venancio Brown MD Unavailable [phone] Encounter Details Date Type Department Care Team Description 08/19/2020 [facility] Medical Records [address] [place] [address] Abstract, Provider Social History Tobacco Use Types [...] on filedocumented in this encounter Care Teams Furniture Builder Relationship Specialty Start Date End Date Eileen Aleman MD PCP - General Internal Medicine 05/04/20 09/14/21 [facility], Pcp PCP - General Internal Medicine 09/15/21 01/05/22 Lynne Ramos MD PCP - General Internal Medicine 01/06/22 Suzi Kelly PA-C Specialist Internal Medicine 01/06/22 Venancio Brown MD [address] [place] [address] Specialist Cardiovascular Disease 01/06/22 documented as of this encounter
--- OUTSIDE RECORDS SUMMARY | 2024-04-10 17:45 | XMS_ITS | Encounter Summary ---
Author Organization [facility] Address [address] [place] [address] Care Team Providers Care Nonfarm Animal Caretaker Name Role Phone Lynne Ramos MD Primary Care Provider Suzi Anthony PA-C Unavailable Unavailable Venancio Brown MD Unavailable [phone] Encounter Details Date Type Department Care Team Description 06/14/2022 Refill Gastroenterology - [place] 175 [facility] [address] [place] [phone] Gary De Jesus MD [address] [place] [address] Social History Tobacco Use Types Packs/Day Years [...] on filedocumented in this encounter Care Teams Nonfarm Animal Caretaker Relationship Specialty Start Date End Date Lynne Ramos MD PCP - General Internal Medicine 01/06/22 Suzi Kelly PA-C Specialist Internal Medicine 01/06/22 Venancio Brown MD [address] [place] [address] Specialist Cardiovascular Disease 01/06/22 documented as of this encounter
--- OUTSIDE RECORDS SUMMARY | 2024-04-10 17:45 | XMS_ITS | Patient Health Record ---
Author Organization [facility] Address [address] [facility] [address] [place] [address] Care Team Providers Care Credit Reference Clerk Name Role Phone Lynen Jean Primary Care Provider Unavailabl e Allergies [...] Orally flora ry 12hrs as needed Active Mypkiugfqe-WZNM-Heemgohv 50-325-40 MG 1 tablet as needed Orally [...] Problem Status W/U Status Risk Notes Problem [id number] Equinus deformity of right foot (M21.6X1) Active confirmed Problem [id number] Equinus deformity of left foot (M21.6X2) Active [...] Date Coverage End Date [employer] [address] [address] [place] [address] [id number] Juan A Ferreira Self - patient is [...] ctomy and fusion 2006 Laparoscopy, cholecystectomy 08/17/16 [place] Breast Reduction 2000 Remove tonsils adenoids, under 12 Total disc Arthrp Ant Apw/Discectomy CRV 2017
--- OUTSIDE RECORDS SUMMARY | 2024-04-10 17:45 | XMS_ITS | Encounter Summary ---
Author Organization [facility] Address [address] [place] [address] Care Team Providers Care Label Pinker Name Role Phone Eileen Aleman MD Primary Care Provider [facility], Pcp Primary Care Provider Lynne Seaman MD Primary Care Provider Suzi Anthony PA-C Unavailable Unavailable Venancio Brown MD Unavailable [phone] Encounter Details Date Type Department Care Team Description 10/08/2020 Refill Medicine/Pediatrics - [address] [phone] Ary Norris PA-C [address] [place] [address] Social History Tobacco Use Types Packs/Day Years [...] 10 MG TABLET 20.0 5 KA O'M [id number] [facility] (7657[facility] 0/0 60.0 [facility]ME Comm Ins [place] 09/04/2020 1 09/03/2020 OXYCODONE HCL 5 MG TABLET 118.0 20 EL ARM [id number] [facility] (7657) 0/0 44.25 [facility] Comm [facility] [place] 08/14/2020 1 08/13/2020 OXYCODONE HCL 5 MG TABLET 118.0 19 RE MOR [id number] [facility] (7657) 0/0 46.58 [facility] Comm [place] 08/14/2020 1 08/13/2020 DIAZEPAM 5 MG TABLET 84.0 28 RE MOR [id number] [facility] (7657) 0/0 Comm Ins [place] 07/24/2020 1 07/24/2020 LORAZEPAM 0.5 MG TABLET 10.0 7 RE MOR [id number] [facility] (7657) 0/0 Comm Ins [place] 07/15/2020 1 07/14/2020 OXYCODONE HCL 5 MG TABLET 118.0 20 CH MIL [id number] [facility] (7657) 0/0 44.25 [facility]ME Comm Ins [place] 06/15/2020 1 06/12/2020 OXYCODONE HCL 5 MG TABLET 112.0 19 CH MIL [id number] [facility] P (7657) 0/0 44.21 MME Comm Ins [place] 06/12/2020 1 06/12/2020 DIAZEPAM 5 MG TABLET 84.0 28 CH MIL [id number] [facility] P (7657) 0/0 Comm Ins [place] 05/08/2020 2 05/08/2020 OXYCODONE HCL 5 MG TABLET 112.0 19 TE SVA [id number] [facility] (7657) 0/0 44.21 MME Comm Ins [place] 04/18/2020 2 04/17/2020 OXYCODONE HCL 5 MG TABLET 70.0 12 SA O'S [id number] [facility] P (7657) 0/0 43.75 MMEComm Ins [place] 04/17/2020 2 04/17/2020 DIAZEPAM 5 MG TABLET 84.0 28 SA O'S [id number] [facility] P (7657) 0/0 Comm Ins [place] documented in this encounter Plan of Treatment Not on file documented as of this encounter Visit Diagnoses Diagnosis DDD (degenerative disc disease), cervical Degeneration of cervical intervertebral disc documented in this encounter Care Teams Label Pinker Relationship Specialty Start Date End Date Eileen Aleman MD PCP - General Internal Medicine 05/04/20 09/14/21 [facility], Pcp PCP - General Internal Medicine 09/15/21 01/05/22 Lynne Ramos MD PCP - General Internal Medicine 01/06/22 Suzi Kelly PA-C Specialist Internal Medicine 01/06/22 Venancio Brown MD [address] [place] [address] Specialist Cardiovascular Disease 01/06/22 documented as of this encounter
--- OUTSIDE RECORDS SUMMARY | 2024-04-10 17:45 | XMS_ITS | Encounter Summary ---
Author Organization [facility] Address [address] [place] [address] Care Team Providers Care Infant Nanny Name Role Phone Lynne Ramos MD Primary Care Provider UnavailSuzi Guzman PA-C Unavailable Unavailable Venancio Brown MD Unavailable [phone] Encounter Details Date Type Department Care Team Description 01/07/2022 Release of Information Medical Records [address] [place] [id number] [place] [address] Social History Tobacco Use Types Packs/Day Years [...] on filedocumented in this encounter Care Teams Infant Nanny Relationship Specialty Start Date End Date Lynne Ramos MD PCP - General Internal Medicine 01/06/22 Suzi Kelly PA-C Specialist Internal Medicine 01/06/22 Venancio Brown MD [address] [place] [address] Specialist Cardiovascular Disease 01/06/22 documented as of this encounter
--- OUTSIDE RECORDS SUMMARY | 2024-04-10 17:45 | XMS_ITS | Encounter Summary ---
Author Organization [facility] Address [address] [place] [address] Care Team Providers Care Attendant Honor Bar Name Role Phone Lynne Ramos MD Primary Care Provider Eileen Diaz MD Primary Care Provider Spring cruz [facility], Pcp Primary Care Provider Lynne Seaman MD Primary Care Provider Suzi Anthony PA-C Unavailable Unavailable Venancio Brown MD Unavailable [phone] Encounter Details Date Type Department Care Team Description 02/27/2018 Flight Test Shop Mechanic Report Medical Records [address] [place] [address] Feliciano Negrete MD Social History Tobacco Use [...] on filedocumented in this encounter Care Teams Attendant Honor Bar Relationship Specialty Start Date End Date Lynne Ramos MD PCP - General Internal Medicine 03/23/16 05/03/20 Eileen Aleman MD PCP - General Internal Medicine 05/04/20 09/14/21 [facility] PCP - General Internal Medicine 09/15/21 01/05/22 Lynne Ramos MD PCP - General Internal Medicine 01/06/22 Suzi Kelly PA-C Specialist Internal Medicine 01/06/22 Venancio Brown MD [address] [place] [address] Specialist Cardiovascular Disease 01/06/22 documented as of this encounter
--- OUTSIDE RECORDS SUMMARY | 2024-04-10 17:45 | XMS_ITS | Encounter Summary ---
Author Organization [facility] Address [address] [place] [address] Care Team Providers Care Home Assessment Nurse Name Role Phone Community, Pcp Primary Care Provider Lynne Seaman MD Primary Care Provider Suzi Anthony PA-C Unavailable Unavailable Venancio Brown MD Unavailable [phone] Encounter Details Date Type Department Care Team Description 11/12/2021 SCAN [facility] Medical [facility] Neurosurgery [place] [address] [phone] Jimbo Galeano PA-C [address] [address] Social History Tobacco Use Types Packs/Day Years [...] on filedocumented in this encounter Care Teams Home Assessment Nurse Relationship Specialty Start Date End Date Community, Pcp PCP - General Internal Medicine 09/15/21 01/05/22 Lynne Ramos MD PCP - General Internal Medicine 01/06/22 Suzi Kelly PA-C Specialist Internal Medicine 01/06/22 Venancio Brown MD [address] [address] Specialist Cardiovascular Disease 01/06/22 documented as of this encounter
--- OUTSIDE RECORDS SUMMARY | 2024-04-10 17:45 | XMS_ITS | Encounter Summary ---
Author Organization [facility] Address [address] [place] [address] Care Team Providers Care Crm Coordinator Name Role Phone Lynne Ramos MD Primary Care Provider UnavailSuzi Guzman PA-C Unavailable Unavailable Venancio Brown MD Unavailable [phone] Encounter Details Date Type Department Care Team Description 08/22/2022 Baggage Checker Report Medical Records [address] [place] [address] Lynne Ramos MD Social History Tobacco Use [...] on filedocumented in this encounter Care Teams Crm Coordinator Relationship Specialty Start Date End Date Lynne Ramos MD PCP - General Internal Medicine 01/06/22 Suzi Kelly PA-C Specialist Internal Medicine 01/06/22 Venancio Brown MD [address] [place] [address] Specialist Cardiovascular Disease 01/06/22 documented as of this encounter
--- OUTSIDE RECORDS SUMMARY | 2024-04-10 17:45 | XMS_ITS | Encounter Summary ---
Author Organization [facility] Address [address] [place] [address] Care Team Providers Care Knitting Machine Fixer Name Role Phone Lynne Ramos MD Primary Care Provider UnavailSuzi Guzman PA-C Unavailable Unavailable Venancio Brown MD Unavailable [phone] Encounter Details Date Type Department Care Team Description 01/06/2022 SCAN Medical Records [address] [place], [place] [phone] [place] [address] Social History Tobacco Use Types Packs/Day Years [...] on filedocumented in this encounter Care Teams Knitting Machine Fixer Relationship Specialty Start Date End Date Lynne Ramos MD PCP - General Internal Medicine 01/06/22 Suzi Kelly PA-C Specialist Internal Medicine 01/06/22 Venancio Brown MD [address] [place] [address] Specialist Cardiovascular Disease 01/06/22 documented as of this encounter
--- OUTSIDE RECORDS SUMMARY | 2024-04-10 17:45 | XMS_ITS | Encounter Summary ---
Author Organization [facility] Address [address] [place] [address] Care Team Providers Care Senior Communications Engineer Name Role Phone Community, Pcp Primary Care Provider Lynne Seaman MD Primary Care Provider Suzi Anthony PA-C Unavailable Unavailable Venancio Brown MD Unavailable Encounter Details Date Type Department Care Team Description 11/09/2021 SCAN [facility] Medical [facility] Neurosurgery [place] [address] [phone] Jimbo Galeano PA-C [address] [address] Social History Tobacco Use Types Packs/Day Years [...] filedocumented in this encounter Care Teams Senior Communications Engineer Relationship Specialty Start Date End Date Community, Pcp PCP - General Internal Medicine 09/15/21 01/05/22 Lynne Ramos MD PCP - General Internal Medicine 01/06/22 Suzi Kelly PA-C Specialist Internal Medicine 01/06/22 Venancio Brown MD [address] [address] Specialist Cardiovascular Disease 01/06/22 documented as of this encounter
--- OUTSIDE RECORDS SUMMARY | 2024-04-10 17:45 | XMS_ITS | Encounter Summary ---
Author Organization [facility] Address [address] [place] [address] Care Team Providers Care Boom Boss Name Role Phone Lynne Ramos MD Primary Care Provider Suzi Anthony PA-C Unavailable Unavailable Venancio Brown MD Unavailable Encounter Details Date Type Department Care Team Description 03/02/2022 [facility] Records [facility] Medical [facility] 175 [facility] [address] [place] [address] Jimenez Sinclair MD 175 [facility] [address] [place], [place] [id number] Social History Tobacco Use Types Packs/Day Years [...] on filedocumented in this encounter Care Teams Boom Boss Relationship Specialty Start Date End Date Lynne Ramos MD PCP - General Internal Medicine 01/06/22 Suzi Kelly PA-C Specialist Internal Medicine 01/06/22 Venancio Brown MD [address] [place] [address] Specialist Cardiovascular Disease 01/06/22 documented as of this encounter
== END ==
LOC: HO.CARD 14:41
PROVIDERS: PCP Internal Medicine; Visit Provider Nurse Practitioner Family
DX: R06.02 Shortness of breath (principal); J98.8 Other specified respiratory disorders; R93.89 Abnormal findings on diagnostic imaging of other specified body structures
CPT/HCPCS: 93306; Q9957

== ENCOUNTER → 2024-04-10 14:47 | Outpatient (BNV) | payer OTHER, SELFPAY | PROVIDERS: PCP Internal Medicine; Visit Provider Internal Medicine Cardiovascular Disease | DX: I42.2 Other hypertrophic cardiomyopathy (principal); I26.94 Multiple subsegmental thrombotic pulmonary emboli without acute cor pulmonale | CPT/HCPCS: 93306 ==

== ENCOUNTER 2024-04-12 10:18 | Outpatient (AMB) | payer OTHER, SELFPAY ==
[2024-04-12 10:32] VITALS: BP 142/86; PULSE 80; O2SAT 99; BMI 48.8
--- NOTE | 2024-04-12 10:32 | A.OFFVIS_ITS ---
Vital Signs 04/12/24 10:32 Height 5 ft 4 in Weight 284 lb 6.341 oz BMI 48.8 BP 142/86 H Blood Pressure Location Rt brachial Position Sitting Pulse 80 Pulse Source Pulse Oximeter Pulse Oximetry (%) 99 Oxygen Delivery Method Room Air Intake Visit Reasons: productive cough Allergies omeprazole Allergy (Mild, Verified 04/12/24 10:35) Rash Sulfa (Sulfonamide Antibiotics) Allergy (Unknown, Verified 04/12/24 10:35) Rash tramadol Allergy (Unknown, Verified 04/12/24 10:35) Rash venlafaxine [From Effexor] Allergy (Unknown, Verified 04/12/24 10:35) Rash HPI Comments Details: The patient is a 48 year woman with a known history of asthma who apparently was in her usual state health until sometime in January which started developing worsening respiratory complaints. She that she was having flu-like symptoms. Ultimately symptoms worsen. She started developing pleuritic chest discomfort. she had an evaluation in an x-ray sometime beginning of 02/26/2024 which I personally reviewed with some haziness in the right hemithorax but no overt airspace disease. Ultimately she developed worsening symptoms and she end ed up going to the [facility] ER. There she did undergo a CTA demonstrating bilateral segmental and subsegmental PEs in addition to bilateral airspace disease and consolidations. She was admitted to the hospital placed on Xarelto and we given antibiotics overall she feels better from the respiratory complaints she was having. She did follow-up with Hematology and had a full hypercoagulable workup and she will be doing that soon. in addition to that an echocardiogram has been ordered. The patient understands and Xarelto will not be resolving the clots and that usually takes around 6-8 weeks to completely resolve. Therefore some point will have to follow-up with a repeat CT scan. The patient in the meantime having daytime drowsiness. Her Milton score is elevated 11/24. Based on her significant lower extremity edema and cardiovascular risk factors we will go ahead and request a sleep study. During the visit we also underwent a 6 minute walk test the patient did well although she was tachycardic oxygen was stable 99% which is reassuring. During the exam she did have some wheezing on examination at this point will going to optimize her respiratory therapy. I do believe Trelegy is a good option for her but it was too expensive so we went ahead and start her on Wixela. 04/12/2024 the patient is here for a pulmonary follow-up visit. Since we last spoke the patient was exposed to RSV in her family. Then after she started developing worsening cough shortness breath chest tightness and now increased mucus production. Moderate severity. Having hard time sleeping. Has a raspy voice. Her sputum is greenish in color. We were able to get a sputum sample and send it to the laboratory. She does have wheezing on examination. She does not feel good. She continues in the anticoagulation. 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 She does have 2 daughters. One of her daughters does take estrogen for control and I did advise her to consider stopping her estrogen while she waits till we get tested. In the meantime she does have rhonchi wheezing on exam. May have I postviral bacterial lower respiratory infection. Will treated for pneumonia at this time. Will give her doxycycline Vantin she will need some prednisone. Although with her significant wheezing will give her Solu-Medrol today. The patient did have a CT scan last back in February the diagnosed with pulmonary emboli. She is going to bring a copy to download. She also had airspace disease. Will plan to repeat a CT scan in 4-6 weeks to address her thromboembolic disease and also the airspace disease. REPLACED BY [facility] Medical History Pneumonia Asthma Vitamin D deficiency Right shoulder pain Non-infective diarrhea Mixed anxiety and depressive disorder Mild persistent asthma Hyperlipidemia Headache Cyst of nasopharynx Cobalamin deficiency Cervical radiculopathy Cerebral arterial aneurysm Body mass index 40.0-44.9, adult ADHD Family History Other FH: mental illness Social History Household Members: Family Housing: House Alcohol intake: former Patient Tobacco Use Status: Former Tobacco user Cigarette Packs Per Day: 1 Years Smoked: 5 e-Cigarette/Vaping Use: Never Used Current occupational status: employed 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 Current occupational exposures/hazards: No Gender identity: Female Cognitive needs: No Hearing needs: No Vision needs: No Review of Systems Const Reports daytime sleepiness, Reports difficulty sleeping, Reports headache(s) and Reports weight gain Eyes Reports no additional complaints ENT Reports headache(s) Card Denies chest pain, Reports palpitations and Reports dyspnea on exertion Resp Reports cough, Reports dyspnea on exertion and Reports wheezing GI Reports no additional complaints Musc Reports myalgias Skin/Breast Denies rash Neuro Reports headache(s) Endo Reports palpitations Amish/Lymph Reports no additional complaints Aller/Immun Reports wheezing Physical Exam Vital Signs: Last Vital Signs Pulse 80 04/12/24 10:32 BP 142/86 H 04/12/24 10:32 Pulse Ox 99 04/12/24 10:32 Oxygen Delivery Method Room Air 04/12/24 10:32 BMI result Body Mass Index 48.8 Const General: comfortable HEENT Head: Yes normocephalic Neck Neck: Yes supple Chest Chest palpation & inspection: normal inspection of the chest Resp Effort & Inspection: normal respiratory effort, Actively coughing and prolonged expiratory phase Auscultation: wheezes and diminished lung sounds Cardio Heart sounds: S1 normal heart sound present and S2 normal heart sound present GI Palpation (GI): Soft to palpation Skin General skin exam: no rashes or lesions noted Extrem General: No clubbing, No cyanosis and Yes edema Office Meds methylprednisolone sod suc(PF) 125 mg/2 mL solution for injection Performing Provider: Dago Gramajo MD Performing Location: [facility] Administered by: Lynne Shaffer LPN on 04/12/24 11:13 Dose Route Admin Location Dispensed Lot Number Expiration Date [employer] Log[employer] 125 mg IM R buttock 1 ea [id number] 02/05/26 2954-5582-58 [employer] PHARM Results Reviewed Results Reviewed: [address] [address] Cardiology Report Signed Patient: Juan A Ferreira MR#: [id number] : 1975 Acct:[id number] Age/Sex: 48 / F ADM Date: 04/10/24 Loc: [facility] Attending Dr: Sweetie JASMINE Ordering Physician: Sweetie Barnhart Date of Service: 04/10/24 Procedure(s): CA echo transthorac w con Accession Number(s): cc: Sweetie Barnhart~ Transthoracic Echocardiogram Patient (Last, First, Middle): Juan A Ferreira, Gender: Female Date of : 1975 Age: 48 Procedure Date: 04/10/2024 Procedure Type: Transthoracic Echocardiogram Location: OP Height: 165.1 cm Weight: 122.47 kg BSA: 2.25 m2 Heart Rate: bpm BP: 140 / 82 mmHg Safety Professional: TO Referring MD: Sweetie JASMINE Symptoms: I26.94 - Multiple subsegmental thrombotic pulmonary emboli without acute... Study Quality: Fair, contrast Conclusions: - 1. Normal LV ejection fraction 55-60% with grade 1 diastolic dysfunction 2. Normal cardiac valvular Dopplers 3. No gross pericardial effusion Findings Procedure Information Contrast agent, definity, is being given per protocol without apparent complications. Left Ventricle Normal left ventricular size, thickness, and systolic function. The visually estimated ejection fraction is between 55-60%. Spectral Doppler is indicative of an impaired relaxation filling pattern. E/E prime ratio is <8, consistent with normal filling pressures. Evidence suggests grade I (mild) diastolic dysfunction. There is mild septal asymmetric hypertrophy. Right Ventricle Normal right ventricular cavity size and systolic function. Atria The left atrium is likely dilated. Interatrial shunt cannot be excluded. The right atrium was not well visualized. Aortic Valve Normal aortic valve structure and function. There is no aortic valve stenosis. There is no aortic valve regurgitation. Mitral Valve Normal mitral valve structure and function. There is trace mitral valve regurgitation. There is no mitral valve stenosis. Pulmonic Valve The pulmonic valve was not well visualized. Tricuspid Valve Likely normal tricuspid valve structure and function. Tricuspid regurgitation envelope is inadequate for calculation of right ventricular systolic pressure. Normal right atrial pressure. Great Vessels All visible segments of the aorta are normal in size. The pulmonary artery was not well visualized. There is no dilatation of the ascending aorta measuring 3.10 cm. Venous The inferior vena cava is normal in size and collapses greater than 50% with inspiration. Pericardium/Pleural There is no evidence of pericardial effusion. Prior Study Comparison No prior study available for comparison. Measurements 2D Linear Measurements IVSd: 1.31 0.6-0.9/0.6-1.0 cm LVIDd: 4.62 3.9-5.3/4.2-5.9 cm LVIDd Index: 2.05 2.4-3.2/2.2-3.1 cm/m2 LVIDs: 2.93 2.0-3.6 cm LVPWd: 0.95 0.7-1.1 cm LA Diam: 3.90 2.7-3.8/3.0-4.0 cm LAIDs Index: 1.73 1.5-2.3 cm/m2 LV Mass: 235.84 67-162/88-224 g LV Mass Index: 104.82 43-95/49-115 g/m2 LVOT Diam: 2.00 3.0+(-)1.3 cm 2D Systolic Function EF 4C: 54.50 >55% EF 2C: 58.50 >55% EF BiP: 57.40 >55% Mitral Valve MV Pk E: 0.54 MV PK A: 0.52 MV Decel Time: 175.00 E/A: 1.00 E'Lateral: 7.83 E'Medial: 5.44 E/E' Med: 9.90 E/E' Lat: 6.80 PHT: 51.00 MVA PHT: 4.31 Decel [place]: 3.07 Aortic Valve AoV Pk Dhaval: 1.54 AoV Mn Dhaval: 1.07 AoV VTI: 0.31 AoV Pk Grad: 9.00 Aov Mn Grad: 5.00 ETELVINA Cont.VTI: 2.16 LVOT LVOT Pk Dhaval: 1.01 LVOT Mn Dhaval: 0.72 LVOT VTI: 0.21 LVOT Pk Grad: 4.00 LVOT Mn Grad: 2.00 LVOT Diam: 2.00 LVOT Area: 3.14 Diastolic Function MV Pk E: 0.54 MV Pk A: 0.52 E/A: 1.00 E'Medial: 5.44 E/E' Med: 9.90 E' Laterial: 7.83 E/E' Lat: 6.80 Right Ventricle TAPSE (mm): 22.60 TVS' Dhaval: 12.50 Tricuspid Valve TR Pk Dhaval: 2.28 TR Pk Grad: 21.00 Great Vessels Aorta Sinus of Valsalva: 3.04 2.0-3.5 cm Ao Asc: 3.10 2.1-3.4 cm Updated in Other Vendor System with Status of Final Leonard Miranda MD electronically signed on 04/11/2024 4:22:18 PM with status of Final Dictated By: Leonard Miranda MD Signed By: <Electronically signed by Leonard Miranda MD in OV> 04/11/24 1622 DD/ 1503 TD/TT: 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: Assessment & Plan Assessment & Plan (1) Pulmonary embolism: Code(s): I26.99 - Other pulmonary embolism without acute cor pulmonale Category: Medical Qualifiers: Pulmonary embolism type: multiple subsegmental (without acute cor pulmonale) Qualified Code(s): I26.94 - Multiple subsegmental thrombotic pulmonary emboli without acute cor pulmonale (2) Shortness of breath: Code(s): R06.02 - Shortness of breath Category: Medical (3) Asthma: Code(s): J45.909 - Unspecified asthma, uncomplicated Category: Medical Qualifiers: Asthma complication type: with acute exacerbation Asthma persistence: persistent Asthma severity: moderate Qualified Code(s): J45.41 - Moderate persistent asthma with (acute) exacerbation (4) ROGELIO (obstructive sleep apnea): Code(s): G47.33 - Obstructive sleep apnea (adult) (pediatric) Category: Medical (5) Pneumonia: Code(s): J18.9 - Pneumonia, unspecified organism Category: Medical Qualifiers: Pneumonia type: due to unspecified organism Laterality: bilateral Lung location: unspecified part of lung Qualified Code(s): J18.9 - Pneumonia, unspecified organism Plan Start Doxycycline/vantin Solumedrol->prednisone taper repeat CT chest to assess PE/pneumonia Wixela ROMEO as needed continue Xorelto. Home PSG CTA in 2 months. Need a copy of her previous CTA to compare F/U 8-12 weeks Orders: Orders CT angio chest PE protocol 2 Months I2.94 - Multiple subsegmental thrombotic pulmonary emboli without acute cor pulmonale, J18.9 - Pneumonia, unspecified organism AMB Methylprednisolone Sod Succ Injection 04/12/24 J45.40 - Moderate persistent asthma, uncomplicated Sputum Cult + Gram stain 04/12/24 R91.1 - Solitary pulmonary nodule Basic Metabolic Panel 2 Months I26.94 - Multiple subsegmental thrombotic pulmonary emboli without acute cor pulmonale, J18.9 - Pneumonia, unspecified organism Medications: New doxycycline hyclate 100 mg PO BID 10 days 20 caps 0RF prednisone PO daily; Take 2 tabs daily x 5 days, then 1 tablet daily x 5 days 10 days 15 tabs 0RF cefpodoxime must administer with a meal/food 200 mg PO BID 20 tabs 0RF codeine-guaifenesin 10-100 mg/5 mL 10 mL PO Q6H 10 days PRN 300 mL 0RF cough Coding Level of Care Code Est Pt Level 4 (02864) Diagnoses Multiple subsegmental pulmonary emboli without acute cor pulmonale I26.94 Pulmonary embolism type: multiple subsegmental (without acute cor pulmonale) Shortness of breath R06.02 Moderate persistent asthma with acute exacerbation J45.41 Asthma complication type: with acute exacerbation Asthma persistence: persistent Asthma severity: moderate ROGELIO (obstructive sleep apnea) G47.33 Pneumonia of both lungs due to infectious organism, unspecified part of lung J18.9 Pneumonia type: due to unspecified organism Laterality: bilateral Lung location: unspecified part of lung Time Spent (min) 18
--- OUTSIDE RECORDS SUMMARY | 2024-04-12 11:32 | XMS_ITS | Patient Health Record ---
Author Organization [facility] Address [address] [place] [address] Care Team Providers Care Supervisor Of Communications Name Role Phone Lynne Jean Primary Care [...] Orally flora ry 12hrs as needed Active Kcfjtimswx-BWSP-Mpoanxaf 50-325-40 MG 1 tablet as needed Orally [...] Problem Status W/U Status Risk Notes Problem [id number] Equinus deformity of right foot (M21.6X1) Active confirmed Problem [id number] Equinus deformity of left foot (M21.6X2) Active [...] Date Coverage End Date [employer] [address] [address] [place] [address] [id number] Juan A Ferreira Self - patient is [...] ctomy and fusion 2006 Laparoscopy, cholecystectomy 08/17/16 OR Breast Reduction 2000 Remove tonsils adenoids, under 12 Total disc Arthrp Ant Apw/Discectomy CRV 2017
--- OUTSIDE RECORDS SUMMARY | 2024-04-12 11:32 | XMS_ITS | Clinical Summary ---
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 Role Phone Lynne Jean MD Primary Care Provider [phone] Allergies Active Allergy Reactions Criticality Noted Date [...] patient's history, symptoms may be related to [place]'s for which she is undergoing a work-up [...] 3:45 PM EST - 02/29/2024 11:46 PM [facility] Emergency [address] [place] [address] Vickey Sharma MD King, Marie A, MD Chest pain, unspecified type (Primary Dx) Discharge Disposition: Left Against Medical Advice 02/22/2024 10:50 PM EST - 02/24/2024 3:25 PM [facility] [address] [place] [address] Pamela Sommer MD Jones, Christopher, MD Flores, [...] older (Afluria) 3 years and older 11/23/2018 [employer] SARS-CoV-2 COVID-19, mRNA, LNP-S, preservative free 03/29/2021,02/18/2020,01/26/2020 [...] Comments Other: borderline personality d.o. Daughter 1 Giovnani Other: vascular problems Father Cataracts Mother Colon [...] by: Shaun Troncoso MD on 03/01/2024 04:26:29 [facility] B Zachary WARD IM CT [...] No significant change from the prior study. [id number] -------- FINAL REPORT -------- Dictated By: Chiki Sebastian Dictated Date: 02/29/2024 14:44 ET Assigned Physician: Chiki Sebastian Reviewed and Electronically Signed By: Chiki Sebastian Signed Date: 02/29/2024 14:45 ET Workstation ID: [id number] Transcribed By: Self Edit Transcribed Date: 02/29/2024 [...] disease. No significant change from theprior study. [id number] -------- FINAL REPORT -------- Dictated By: Chiki Sebastian Dictated Date: 02/29/2024 14:44 ET Assigned Physician: Chiki Sebastian Reviewed and Electronically Signed By: Chiki Sebastian Signed Date: 02/29/2024 14:45 ET Workstation ID: [id number] Transcribed By: Self Edit Transcribed Date: 02/29/2024 [...] LAB BLOOD ORDERABLES Final Resu lt [facility] [address] [place] [address], * (ABNORMAL) CBC auto differential (02/29/2024 12:02 PM EST) Only the most recent of3 resultswithin the time period is included. WBC 9.9 4.8 - 10.8 K/mcL LAB HEMETOLOGY METHOD 02/29/2024 1:38 PM [facility] RBC 5.40(H) 3.80 - 4.80 M/mcL LAB HEMETOLOGY METHOD 02/29/2024 1:38 PM [facility] Hemoglobin 15.6 11.5 - 16.0 g/dL LAB HEMETOLOGY METHOD 02/29/2024 1:38 PM [facility] Hematocrit 47.9(H) 35.0 - 47.0 % LAB HEMETOLOGY METHOD 02/29/2024 1:38 PM [facility] MCV 88.5 79.0 - 98.0 FL LAB HEMETOLOGY METHOD 02/29/2024 1:38 PM [facility] MCH 28.8 27.0 - 32.0 pcg LAB HEMETOLOGY METHOD 02/29/2024 1:38 PM [facility] MCHC 32.6 32.0 - 37.0 g/dL LAB HEMETOLOGY METHOD 02/29/2024 1:38 PM [facility] RDW 13.2 11.0 - 15.0 % LAB HEMETOLOGY METHOD 02/29/2024 1:38 PM [facility] Platelets 539(H) 130 - 400 K/mcL LAB HEMETOLOGY METHOD 02/29/2024 1:38 PM [facility] MPV 9.6 7.0 - 11.0 FL LAB HEMETOLOGY METHOD 02/29/2024 1:38 PM [facility] NRBC 0.0 <1.0 % LAB HEMETOLOGY METHOD 02/29/2024 1:38 PM [facility] NRBC Absolute 0.00 <0.10 K/mcL LAB HEMETOLOGY METHOD 02/29/2024 1:38 PM [facility] Neutrophils Relative 63.4 % LAB HEMETOLOGY METHOD 02/29/2024 1:38 PM [facility] Lymphocytes Relative 27.1 % LAB HEMETOLOGY METHOD 02/29/2024 1:38 PM [facility] Monocytes Relative 6.2 % LAB HEMETOLOGY METHOD 02/29/2024 1:38 PM [facility] Eosinophils Relative 2.2 % LAB HEMETOLOGY METHOD 02/29/2024 1:38 PM [facility] Basophils Relative 0.8 % LAB HEMETOLOGY METHOD 02/29/2024 1:38 PM [facility] Immature Granulocytes Relative 0.3 % LAB HEMETOLOGY METHOD 02/29/2024 1:38 PM [facility] Neutrophils Absolute 6.30 1.50 - 7.00 K/mcL LAB HEMETOLOGY METHOD 02/29/2024 1:38 PM [facility] Lymphocytes Absolute 2.69 1.00 - [...] 1:38 PM EST [facility] Immature Granulocytes Absolute 0.03 0.00 - 0.03 K/[facility] LAB HEMETOLOGY METHOD 02/29/2024 1:38 PM EST [facility] Blood Venous blood specimen / Unknown Venipuncture / Unknown 02/29/2024 12:02 PM EST 02/29/2024 1:18 PM EST us Vickeyfrederick Sharma MD LAB BLOOD ORDERABLES Final Resu lt [facility] [address] [place] [address], * (ABNORMAL) Protime-INR (02/29/2024 12:02 PM EST) [...] ORDERABLES Final Resu lt Performing Organization Address [facility]/ZIP Co de Phone Number [facility] [address] [place] [address], * hCG, serum, qualitative (02/29/2024 12:02 PM EST) Pathologist [facility] hCG Qual Negative Negative 02/29/2024 5:54 PM EST [facility] Blood Venous blood specimen / Unknown Venipuncture / Unknown 02/29/2024 12:02 PM EST 02/29/2024 1:18 PM EST Vickey Sharma MD LAB BLOOD ORDERABLES Final Resu lt Performing Organization Address [facility] de Phone Number [facility] [address] [place] [address], [place] [phone] * B-type natriuretic peptide (02/29/2024 12:02 PM EST) Only the most recent of2 resultswithin the time period is included. [facility] BNP 3 <=100 pcg/mL LAB CHEMISTRY METHOD 02/29/2024 2:05 PM EST [facility] Blood Venous blood specimen / Unknown Venipuncture / Unknown 02/29/2024 12:02 PM EST 02/29/2024 1:18 PM EST us Vickey Sharma MD LAB BLOOD ORDERABLES Final Resu lt Performing Organization Address [facility] Co de Phone Number [facility] [address] [place] [address], [place] [phone] * (ABNORMAL) Basic metabolic panel (02/29/2024 12:02 PM EST) Only the most recent of2 resultswithin the time period is included. [facility] Sodium 130(L) 133 - 145 mmol/L LAB CHEMISTRY METHOD 02/29/2024 1:46 PM EST [facility] Potassium 3.8 3.5 - 5.5 mmol/L LAB CHEMISTRY METHOD 02/29/2024 1:46 PM [facility] Chloride 94(L) 96 - 110 mmol/L LAB CHEMISTRY METHOD 02/29/2024 1:46 PM [facility] CO2 27 21 - 32 mmol/L LAB CHEMISTRY METHOD 02/29/2024 1:46 PM [facility] Anion Gap 9 3 - 11 LAB CHEMISTRY METHOD 02/29/2024 1:46 PM [facility] Glucose 153(H) 70 - 100 mg/dL LAB CHEMISTRY METHOD 02/29/2024 1:46 PM [facility] BUN 22 5 - 25 mg/dL LAB CHEMISTRY METHOD 02/29/2024 1:46 PM [facility] Creatinine 1.34(H) 0.50 - 1.10 mg/dL LAB CHEMISTRY METHOD 02/29/2024 1:46 PM [facility] eGFR 50(L) >=60 mL/min/1. 73m2 LAB CHEMISTRY METHOD 02/29/2024 1:46 PM [facility] Comment:Calculation based on the??Chronic Kidney Disease Epidemiology Collaboration (CKD-EPI) equation refit??without adjustment for race. BUN/Creatinine Ratio 16.4 LAB CHEMISTRY METHOD 02/29/2024 1:46 PM [facility] Calcium 10.0 8.5 - 10.5 mg/dL LAB CHEMISTRY METHOD 02/29/2024 1:46 PM [facility] Blood Venous blood specimen / Unknown Venipuncture / Unknown 02/29/2024 12:02 PM EST 02/29/2024 1:18 PM EST us Vickeyfrederick Sharma MD LAB BLOOD ORDERABLES Final Resu lt [facility] [address] [place] [address], [place] [phone] * ECG 12 lead (02/29/2024 10:49 AM EST) Only the most recent of3 resultswithin the time period is included. Ventricular Rate ECG 104 BPM GEMUSE Atrial Rate 104 BPM GEMUSE P-R Interval 134 ms GEMUSE QRS Duration 90 ms GEMUSE Q-T Interval 364 ms GEMUSE QTc 478 ms GEMUSE P Wave [place] 38 degrees GEMUSE R [place] -16 degrees GEMUSE T [place] 21 degrees GEMUSE ECG Interpretation Sinus tachycardia [...] Signed Date: 02/23/2024 12:37 ET Workstation ID: [id number] Transcribed By: Self Edit Transcribed Date: 02/23/2024 [...] Signed Date: 02/23/2024 12:37 ET Workstation ID: [id number] Transcribed By: Self Edit Transcribed Date: 02/23/2024 12:30 ET us Venancio Kaye MD CV VASCULAR PROCEDURES Yue l Result * (ABNORMAL) C-reactive protein (02/23/2024 9:23 AM EST) Only the most recent of2 resultswithin the time period is included. C-Reactive Protein 1.38(H) <=0.50 mg/dL LAB CHEMISTRY METHOD 02/23/2024 10:12 AM EST [facility] Blood Venous blood specimen / Unknown Venipuncture / Unknown 02/23/2024 9:23 AM EST 02/23/2024 9:27 AM EST Senia Ulloa NP LAB BLOOD ORDERABLES Final Res ult Performing Organization Address City/[facility]/ZIP Co de Phone Number [facility] [address] [place] [address], [place] [phone] * Lavender tube (02/23/2024 9:21 AM EST) [facility] Extra Tube Hold for add-ons. 02/23/2024 11:02 AM EST [facility] Comment:Auto resulted. Blood Venous blood specimen / Unknown Venipuncture / Unknown 02/23/2024 9:21 AM EST 02/23/2024 9:27 AM EST Pamela Sommer MD LAB BLOOD ORDERABLES Fin al Result Performing Organization Address [facility]/ZIP Co de Phone Number [facility] [address] [place] [address], [place] [phone] * (ABNORMAL) Activated Partial Thromboplastin Time - STAT (02/23/2024 7:31 AM EST) [facility] aPTT 42.3(H) 24.1 - 39.3 sec LAB COAGULATION METHOD 02/23/2024 8:21 AM EST [facility] Blood Venous blood specimen / Unknown Venipuncture / Unknown 02/23/2024 7:31 AM EST 02/23/2024 7:52 AM EST Venancio Kaye MD LAB BLOOD ORDERABLES Final Result Performing Organization Address City/[facility]/ZIP Co de Phone Number [facility] [address] [place] [address], [place] [phone] * Respiratory virus panel molecular study (02/23/2024 12:36 AM EST) [facility] Adenovirus Detection by PCR Not Detected Not Detected LAB MICROBIOLOGY METHOD 02/23/2024 1:45 AM EST [facility] Influenza A PCR Not Detected Not Detected LAB MICROBIOLOGY METHOD 02/23/2024 1:45 AM EST [facility] Influenza B PCR Not Detected Not Detected LAB MICROBIOLOGY METHOD 02/23/2024 1:45 AM EST [facility] Coronavirus 229E Not Detected Not Detected LAB MICROBIOLOGY METHOD 02/23/2024 1:45 AM [facility] Coronavirus HKU1 Not Detected Not Detected LAB MICROBIOLOGY METHOD 02/23/2024 1:45 AM [facility] Coronavirus OC43 Not Detected Not Detected LAB MICROBIOLOGY METHOD 02/23/2024 1:45 AM [facility] Coronavirus NL63 Not Detected Not Detected LAB MICROBIOLOGY METHOD 02/23/2024 1:45 AM [facility] Parainfluenza Virus 1 Not Detected Not Detected LAB MICROBIOLOGY METHOD 02/23/2024 1:45 AM [facility] Parainfluenza Virus 2 Not Detected Not Detected LAB MICROBIOLOGY METHOD 02/23/2024 1:45 AM [facility] Parainfluenza Virus 3 Not Detected Not Detected LAB MICROBIOLOGY METHOD 02/23/2024 1:45 AM [facility] Parainfluenza Virus 4 Not Detected Not Detected LAB MICROBIOLOGY METHOD 02/23/2024 1:45 AM [facility] RSV PCR Not Detected Not Detected LAB MICROBIOLOGY METHOD 02/23/2024 1:45 AM [facility] Human Metapneumovirus A and B Not Detected Not Detected LAB MICROBIOLOGY METHOD 02/23/2024 1:45 AM [facility] Rhinovirus/Entero virus Not Detected Not Detected LAB MICROBIOLOGY METHOD 02/23/2024 1:45 AM [facility] Bordetella pertussis Not Detected Not Detected LAB MICROBIOLOGY METHOD 02/23/2024 1:45 AM [facility] Bordetella parapertussis Not Detected Not Detected LAB MICROBIOLOGY METHOD 02/23/2024 1:45 AM EST [facility] Mycoplasma pneumo by PCR Not Detected Not Detected LAB MICROBIOLOGY METHOD 02/23/2024 1:45 AM EST [facility] Chlamydia pneumoniae Not Detected Not Detected LAB MICROBIOLOGY METHOD 02/23/2024 1:45 AM EST [facility] SARS COV-2 Not Detected Not Detected LAB MICROBIOLOGY METHOD 02/23/2024 1:45 AM EST [facility] Swab Nasopharyngeal structure / Unknown Non-blood Collection / Unknown 02/23/2024 12:36 AM EST 02/23/2024 12:49 AM EST [facility] - 02/23/2024 1:45 AM EST Testing was performed using the [employer] Respiratory Pathogen PCR Assay. All results must [...] - GENERA L ORDERABLES Final Result [facility] [address] [place] [address], * (ABNORMAL) D-dimer, quantitative (02/23/2024 12:26 AM EST) D-Dimer, Quant (D-DU) 309(H) <=230 ng/mL DDU LAB COAGULATION METHOD 02/23/2024 1:29 AM EST [facility] Blood Venous blood specimen / Unknown Venipuncture / Unknown 02/23/2024 12:26 AM EST 02/23/2024 12:49 AM EST [facility] - 02/23/2024 1:29 AM EST D-Dimer <230 ng/mL (D-Dimer units) is the threshold for exclusion of DVT/PE. D-Dimer may be elevated in: Critically ill, severely infected, trauma patients, DIC, acute CVA, acute OR, unstable angina, AF, old age, , and smoking. D-Dimer may be decreased with: Initiation of heparin therapy and oral anticoagulants. Pamela Sommer MD LAB BLOOD ORDERABLES Fin al Result [facility] [address] [place] [address], * Procalcitonin (02/22/2024 8:55 PM EST) Procalcitonin 0.03 <=0.16 ng/mL LAB CHEMISTRY METHOD 02/23/2024 10:13 AM EST [facility] Blood Venous blood specimen / Unknown Venipuncture / Unknown 02/22/2024 8:55 PM EST 02/22/2024 9:03 PM EST Narrative [facility] - 02/23/2024 10:13 AM EST [...] BLOOD ORDERABLES Final Result Performing Organization Address City/[facility]/ZIP Co de Phone Number [facility] [address] [place] [address], [place] [phone] * (ABNORMAL) Magnesium (02/22/2024 8:55 PM EST) [facility] Magnesium 1.8(L) 1.9 - 2.6 mg/dL LAB CHEMISTRY METHOD 02/22/2024 9:30 PM EST [facility] Blood Venous blood specimen / Unknown Venipuncture / Unknown 02/22/2024 8:55 PM EST 02/22/2024 9:03 PM EST [facility] BLOOD ORDERABLES Yue l Result Performing Organization Address [facility]/ZIP Co de Phone Number [facility] [address] [place] [address], [place] [phone] * Lipase (02/22/2024 8:55 PM EST) [facility] Lipase 34 13 - 75 unit/L LAB CHEMISTRY METHOD 02/22/2024 9:30 PM EST [facility] Blood Venous blood specimen / Unknown Venipuncture / Unknown 02/22/2024 8:55 PM EST 02/22/2024 9:03 PM EST [facility] LAB BLOOD ORDERABLES Yue l Result Performing Organization Address City/[facility]/ZIP Co de Phone Number [facility] [address] [place] [address], [place] [phone] * (ABNORMAL) Comprehensive metabolic panel (02/22/2024 8:55 PM EST) [facility] Sodium 136 133 - 145 mmol/L LAB CHEMISTRY METHOD 02/22/2024 9:30 PM EST [facility] Potassium 3.8 3.5 - 5.5 mmol/L LAB CHEMISTRY METHOD 02/22/2024 9:30 PM [facility] Chloride 103 96 - 110 mmol/L LAB CHEMISTRY METHOD 02/22/2024 9:30 PM [facility] CO2 29 21 - 32 mmol/L LAB CHEMISTRY METHOD 02/22/2024 9:30 PM [facility] Anion Gap 4 3 - 11 LAB CHEMISTRY METHOD 02/22/2024 9:30 PM [facility] Glucose 139(H) 70 - 100 mg/dL LAB CHEMISTRY METHOD 02/22/2024 9:30 PM [facility] BUN 10 5 - 25 mg/dL LAB CHEMISTRY METHOD 02/22/2024 9:30 PM [facility] Creatinine 1.10 0.50 - 1.10 mg/dL LAB CHEMISTRY METHOD 02/22/2024 9:30 PM [facility] eGFR 63 >=60 mL/min/1. 73m2 LAB CHEMISTRY METHOD 02/22/2024 9:30 PM [facility] Comment:Calculation based on the??Chronic Kidney Disease Epidemiology Collaboration (CKD-EPI) equation refit??without adjustment for race. BUN/Creatinine Ratio 9.1 LAB CHEMISTRY METHOD 02/22/2024 9:30 PM [facility] Calcium 8.7 8.5 - 10.5 mg/dL LAB CHEMISTRY METHOD 02/22/2024 9:30 PM [facility] AST (SGOT) 23 10 - 42 unit/L LAB CHEMISTRY METHOD 02/22/2024 9:30 PM [facility] ALT (SGPT) 44 10 - 60 unit/L LAB CHEMISTRY METHOD 02/22/2024 9:30 PM [facility] Alkaline Phosphatase 95 42 - 121 unit/L LAB CHEMISTRY METHOD 02/22/2024 9:30 PM [facility] Total Protein 7.3 6.0 - 8.0 g/dL LAB CHEMISTRY METHOD 02/22/2024 9:30 PM [facility] Albumin 3.3 3.2 - 5.0 g/dL LAB CHEMISTRY METHOD 02/22/2024 9:30 PM EST [facility] Total Bilirubin 0.3 0.0 - 1.4 mg/dL LAB CHEMISTRY METHOD 02/22/2024 9:30 PM EST [facility] ([facility] Blood Venous blood specimen / Unknown Venipuncture / Unknown 02/22/2024 8:55 PM EST 02/22/2024 9:03 PM EST Anahi Cavazosny Fercho DO LAB BLOOD ORDERABLES Yue l Result [facility] ([facility]) [facility] [address] [place] [address], * Cervical Cancer Screening: HPV (08/26/2021) Pathologist [facility] Cervical Cancer Screening: HPV abstracted, negative Historical [...] currently active code status orders. Care Teams [employer] Relationship Specialty Start Date End Date Lynne Jean MD PCP - General Endocrinology 02/29/24
== END 2024-04-12 11:20 | disposition home or self-care (01) ==
PROVIDERS: PCP Internal Medicine; Visit Provider Hospitalist
DX: I26.94 Multiple subsegmental thrombotic pulmonary emboli without acute cor pulmonale (principal); R06.02 Shortness of breath; J45.41 Moderate persistent asthma with (acute) exacerbation; G47.33 Obstructive sleep apnea (adult) (pediatric); J18.9 Pneumonia, unspecified organism
CPT/HCPCS: 99214

== ENCOUNTER → 2024-04-12 10:18 | Outpatient (BNVA) | payer OTHER, SELFPAY | PROVIDERS: PCP Internal Medicine; Visit Provider Hospitalist | DX: J45.41 Moderate persistent asthma with (acute) exacerbation (principal); R06.02 Shortness of breath; I26.94 Multiple subsegmental thrombotic pulmonary emboli without acute cor pulmonale; G47.33 Obstructive sleep apnea (adult) (pediatric); J18.9 Pneumonia, unspecified organism; Z79.01 Long term (current) use of anticoagulants | CPT/HCPCS: 96372; J2919 ==

== ENCOUNTER 2024-04-25 14:44 | Outpatient (AMB) | payer OTHER, SELFPAY ==
--- NOTE | 2024-04-25 14:46 | MHC.OFFVIS ---
Vital Signs 04/25/24 14:48 Height 5 ft 4 in Weight 288 lb 12.889 oz BMI 49.6 BP 142/90 H Blood Pressure Location Rt brachial Position Sitting Pulse 80 Pulse Source Pulse Oximeter Pulse Oximetry (%) 97 Oxygen Delivery Method Room Air Intake Visit Reasons: sick visit per MD Gram[place] Allergies omeprazole Allergy (Mild, Verified 04/25/24 14:50) Rash Sulfa (Sulfonamide Antibiotics) Allergy (Unknown, Verified 04/25/24 14:50) Rash tramadol Allergy (Unknown, Verified 04/25/24 14:50) Rash venlafaxine [From Effexor] Allergy (Unknown, Verified 04/25/24 14:50) Rash HPI Comments Details: The patient is a 48 year woman with a known history of asthma who apparently was in her usual state health until sometime in January which started developing worsening respiratory complaints. She that she was having flu-like symptoms. Ultimately symptoms worsen. She started developing pleuritic chest discomfort. she had an evaluation in an x-ray sometime beginning of 02/26/2024 which I personally reviewed with some haziness in the right hemithorax but no overt airspace disease. Ultimately she developed worsening symptoms and she ended up going to the [facility] ER. There she did undergo a CTA demonstrating bilateral segmental and subsegmental PEs in addition to bilateral airspace disease and consolidations. She was admitted to the hospital placed on Xarelto and we given antibiotics overall she feels better from the respiratory complaints she was having. She did follow-up with Hematology and had a full hypercoagulable workup and she will be doing that soon. in addition to that an echocardiogram has been ordered. The patient understands and Xarelto will not be resolving the clots and that usually takes around 6-8 weeks to completely resolve. Therefore some point will have to follow-up with a repeat CT scan. The patient in the meantime having daytime drowsiness. Her [place] score is elevated 24. Based on her significant lower extremity edema and cardiovascular risk factors we will go ahead and request a sleep study. During the visit we also underwent a 6 minute walk test the patient did well although she was tachycardic oxygen was stable 99% which is reassuring. During the exam she did have some wheezing on examination at this point will going to optimize her respiratory therapy. I do believe Trelegy is a good option for her but it was too expensive so we went ahead and start her on Wixela. 04/12/2024 the patient is here for a pulmonary follow-up visit. Since we last spoke the patient was exposed to RSV in her family. Then after she started developing worsening cough shortness breath chest tightness and now increased mucus production. Moderate severity. Having hard time sleeping. Has a raspy voice. Her sputum is greenish in color. We were able to get a sputum sample and send it to the laboratory. She does have wheezing on examination. She does not feel good. She continues in the anticoagulation. 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 She does have 2 daughters. One of her daughters does take estrogen for control and I did advise her to consider stopping her estrogen while she waits till we get tested. In the meantime she does have rhonchi wheezing on exam. May have I postviral bacterial lower respiratory infection. Will treated for pneumonia at this time. Will give her doxycycline Vantin she will need some prednisone. Although with her significant wheezing will give her Solu-Medrol today. The patient did have a CT scan last back in February the diagnosed with pulmonary emboli. She is going to bring a copy to download. She also had airspace disease. Will plan to repeat a CT scan in 4-6 weeks to address her thromboembolic disease and also the airspace disease. 04/25/2024 the patient is here for a pulmonary sick visit. She still not 100%. She had called because she was still feeling under the weather and center another course of prednisone 60 mg with taper and also a course of azithromycin. She is down to 50 mg of prednisone at this time. She is starting to feel better. We did check her oxygen again walking and she did well. Her exam significantly better without any significant wheezing or rhonchi or crackles. Although she still diminished. She will continue to stay out of work this week and then hopefully go to work starting Monday. She did bring a copy of her CT scan that she had when she had the PEs. The patient will also undergo a repeat CT scan sometime in June to follow up the resolution of the clots. She continues use her respiratory therapy with good effect. I do hope that she does a little better. Because of all the prednisone she is having hard time sleeping. Therefore she can use Ambien as needed for sleep. [facility] Medical History Pneumonia Asthma Vitamin D deficiency Right shoulder pain Non-infective diarrhea Mixed anxiety and depressive disorder Mild persistent asthma Hyperlipidemia Headache Cyst of nasopharynx Cobalamin deficiency Cervical radiculopathy Cerebral arterial aneurysm Body mass index 40.0-44.9, adult ADHD Family History Other FH: mental illness Social History Household Members: Family Housing: House Alcohol intake: former Patient Tobacco Use Status: Former Tobacco user Cigarette Packs Per Day: 1 Years Smoked: 5 e-Cigarette/Vaping Use: Never Used Current occupational status: employed 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 Current occupational exposures/hazards: No Gender identity: Female Cognitive needs: No Hearing needs: No Vision needs: No Review of Systems Const Reports daytime sleepiness, Reports difficulty sleeping, Reports headache(s) and Reports weight gain Eyes Reports no additional complaints ENT Reports headache(s) Card Denies chest pain, Reports palpitations and Reports dyspnea on exertion Resp Reports cough, Reports dyspnea on exertion and Reports wheezing GI Reports no additional complaints Musc Reports myalgias Skin/Breast Denies rash Neuro Reports headache(s) Endo Reports palpitations Amish/Lymph Reports no additional complaints Aller/Immun Reports wheezing Physical Exam Vital Signs: Last Vital Signs Pulse 80 04/25/24 14:48 BP 142/90 H 04/25/24 14:48 Pulse Ox 97 04/25/24 14:48 Oxygen Delivery Method Room Air 04/25/24 14:48 BMI result Body Mass Index 49.6 Const General: comfortable HEENT Head: Yes normocephalic Neck Neck: Yes supple Chest Chest palpation & inspection: normal inspection of the chest Resp Effort & Inspection: normal respiratory effort Auscultation: diminished lung sounds Cardio Heart sounds: S1 normal heart sound present and S2 normal heart sound present GI Palpation (GI): Soft to palpation Skin General skin exam: no rashes or lesions noted Extrem General: No clubbing, No cyanosis and Yes edema Assessment & Plan Assessment & Plan (1) Pulmonary embolism: Code(s): I26.99 - Other pulmonary embolism without acute cor pulmonale Category: Medical Qualifiers: Pulmonary embolism type: multiple subsegmental (without acute cor pulmonale) Qualified Code(s): I26.94 - Multiple subsegmental thrombotic pulmonary emboli without acute cor pulmonale (2) Shortness of breath: Code(s): R06.02 - Shortness of breath Category: Medical (3) Asthma: Code(s): J45.909 - Unspecified asthma, uncomplicated Category: Medical Qualifiers: Asthma complication type: with acute exacerbation Asthma persistence: persistent Asthma severity: moderate Qualified Code(s): J45.41 - Moderate persistent asthma with (acute) exacerbation (4) ROGELIO (obstructive sleep apnea): Code(s): G47.33 - Obstructive sleep apnea (adult) (pediatric) Category: Medical (5) Pneumonia: Code(s): J18.9 - Pneumonia, unspecified organism Category: Medical Qualifiers: Laterality: bilateral Lung location: unspecified part of lung Pneumonia type: due to unspecified organism Qualified Code(s): J18.9 - Pneumonia, unspecified organism Plan continue azithromycin prednisone taper repeat CT chest to assess PE/pneumonia Wixela ROMEO as needed continue Xorelto. Home PSG CTA in 2 months. Need a copy of her previous CTA to compare ambien for sleep F/U 8-12 weeks Medications: New zolpidem 10 mg PO BEDTIME PRN 30 tabs 0RF sleep 30 days Coding Level of Care Code Est Pt Level 4 (44737) Diagnoses Multiple subsegmental pulmonary emboli without acute cor pulmonale I26.94 Pulmonary embolism type: multiple subsegmental (without acute cor pulmonale) Shortness of breath R06.02 Moderate persistent asthma with acute exacerbation J45.41 Asthma complication type: with acute exacerbation Asthma persistence: persistent Asthma severity: moderate ROGELIO (obstructive sleep apnea) G47.33 Pneumonia of both lungs due to infectious organism, unspecified part of lung J18.9 Laterality: bilateral Lung location: unspecified part of lung Pneumonia type: due to unspecified organism Time Spent (min) 16
[2024-04-25 14:48] VITALS: BP 142/90; PULSE 80; O2SAT 97; BMI 49.6
--- OUTSIDE RECORDS SUMMARY | 2024-04-25 17:18 | XMS_ITS | Patient Health Record ---
Author Organization [facility] Address [address] [place] [address] Care Team Providers Care Otolaryngology Physician Name Role Phone Lynne Jean Primary Care [...] Orally flora ry 12hrs as needed Active Vgmozhzxut-YOBC-Bgzphlfv 50-325-40 MG 1 tablet as needed Orally [...] Problem Status W/U Status Risk Notes Problem [id number] Equinus deformity of right foot (M21.6X1) Active confirmed Problem [id number] Equinus deformity of left foot (M21.6X2) Active [...] Date Coverage End Date [employer] [address] [address] [place] [address] [id number] Juan A Ferreira Self - patient is [...] ctomy and fusion 2006 Laparoscopy, cholecystectomy 08/17/16 [place] Breast Reduction 2000 Remove tonsils adenoids, under 12 Total disc Arthrp Ant Apw/Discectomy CRV 2017
--- OUTSIDE RECORDS SUMMARY | 2024-04-25 17:19 | XMS_ITS | Clinical Summary ---
Author Organization [facility] [address] Address [address] [place] [address] Phone Care Team Providers Care Emergency Medical Tech Name Role Phone Lynne Jean MD Primary Care Provider [phone] Allergies Active Allergy Reactions Criticality Noted Date [...] A DAY FOR 30 DAYS 2 Active cyclobenzaprine (FLEXERIL) 10 mg tablet 2 Active oxyCODONE (ROXICODONE) 5 mg immediate release tablet Take 1 tablet (5 mg total) by mouth every 6 (six) hours if needed for moderate pain. 2 Active clotrimazole-be tamethasone (LOTRISONE) 1-0.05 % cream Apply topically as [...] mouth 1 (one) time each day. Active ipratropium-alb uteroL (DUONEB) 0.5-2.5 mg/3 mL nebulizer solution Take [...] with dinner. 51 tablet 5 Active norethindrone (MAKEDA,Frederick IRENE,MICRONOR ) 0.35 mg tablet Take 1 tablet (0.35 mg total) by mouth 1 (one) time each day. 28 tablet 2 Active Active Problems Problem Noted Date Diagnosed Date [...] patient's history, symptoms may be related to [place]'s for which she is undergoing a work-up [...] 3:45 PM EST - 02/29/2024 11:46 PM [facility] Emergency [address] [place] [address] Vickey Sharma MD King, Marie A, MD Chest pain, unspecified type (Primary Dx) Discharge Disposition: Left Against Medical Advice 02/22/2024 10:50 PM EST - 02/24/2024 3:25 PM [facility] [address] [place] [id number] Pamela Sommer MD Jones, Christopher, MD Flores, [...] older (Afluria) 3 years and older 11/23/2018 Pfizer SARS-CoV-2 COVID-19, mRNA, LNP-S, preservative free 03/29/2021,02/18/2020,01/26/2020 [...] TONSILLECTOMY ADENOIDECTOMY, BILATERAL MYRINGOTOMY AND TUBES PROCEDURE: SC TONSILLECTOMY & ADENOIDECTOMY <AGE 12 BREAST REDUCTION 2000 PROCEDURE: SC BREAST REDUCTION CHOLECYSTECTOMY 08/17/2016 PROCEDURE: [place] LAPAROSCOPY SURG CHOLECYSTECTOMY; COMMENT: Laparoscopic cholecystectomy; [place]; Dr. Matos OTHER SURGICAL HISTORY PROCEDURE: TOTAL DISC ARTHRP ANT APW/DISCECTOMY CRV 3+; COMMENT: 2017 OTHER SURGICAL HISTORY PROCEDURE: [place] ANESTHESIA CERVICAL SPINE & CORD NOS Medical [...] by: Shaun Troncoso MD on 03/01/2024 04:26:29 [facility] B Zachary WARD [facility] [place] PROCED[place] Edited Result - Final * [...] by: Shaun Troncoso MD on 03/01/2024 04:21:43 [facility] Nicole Sharma MD [facility] PROCEDURES Final Result * XR Chest 2 Views (02/29/2024 2:09 PM EST) Only the most recent of2 resultswithin the time period is included. Anatomical Region Laterality Modality Body Radiographic Erin ging 02/29/2024 2:44 PM EST Impressions 02/29/2024 2:45 PM EST No evidence of active pulmonary disease. No significant change from the prior study. [id number] -------- FINAL REPORT -------- Dictated By: Chiki Sebastian Dictated Date: 02/29/2024 14:44 ET Assigned Physician: Chiki Sebastian Reviewed and Electronically Signed By: Chiki Sebastian Signed Date: 02/29/2024 14:45 ET Workstation ID: [id number] Transcribed By: Self Edit Transcribed Date: 02/29/2024 [...] disease. No significant change from theprior study. [id number] -------- FINAL REPORT -------- Dictated By: Chiki Sebastian Dictated Date: 02/29/2024 14:44 ET Assigned Physician: Chiki Sebastian Reviewed and Electronically Signed By: Chiki Sebastian Signed Date: 02/29/2024 14:45 ET Workstation ID: [id number] Transcribed By: Self Edit Transcribed Date: 02/29/2024 14:44 ET Vickey Nicole Sharma MD IMG XR PROCEDURES Final Result [...] than 20 mg/day of biotin. us Vickey Nicole Sharma MD LAB BLOOD ORDERABLES Final Resu lt [facility] [address] [place] [address], * (ABNORMAL) CBC auto differential (02/29/2024 12:02 PM EST) Only the most recent of3 resultswithin the time period is included. WBC 9.9 4.8 - 10.8 K/mcL LAB HEMETOLOGY METHOD 02/29/2024 1:38 PM [facility] RBC 5.40(H) 3.80 - 4.80 M/mcL LAB HEMETOLOGY METHOD 02/29/2024 1:38 PM EST [facility] Hemoglobin 15.6 11.5 - 16.0 g/dL LAB HEMETOLOGY METHOD 02/29/2024 1:38 PM [facility] Hematocrit 47.9(H) 35.0 - 47.0 % LAB HEMETOLOGY METHOD 02/29/2024 1:38 PM EST [facility] MCV 88.5 79.0 - 98.0 [...] 1:38 PM [facility] Monocytes Absolute 0.62 0.20 - 1.00 K/mcL LAB HEMETOLOGY METHOD 02/29/2024 1:38 PM EST [facility] Eosinophils Absolute 0.22 0.00 - 0.50 K/[facility] LAB HEMETOLOGY METHOD 02/29/2024 1:38 PM EST [facility] Basophils Absolute 0.08 0.00 - 0.20 K/mcL LAB HEMETOLOGY METHOD 02/29/2024 1:38 PM EST [facility] Immature Granulocytes Absolute 0.03 0.00 - 0.03 K/[facility] LAB HEMETOLOGY METHOD 02/29/2024 1:38 PM EST [facility] Blood Venous blood specimen / Unknown Venipuncture / Unknown 02/29/2024 12:02 PM EST 02/29/2024 1:18 PM EST Vickey Nicole Sharma MD LAB BLOOD ORDERABLES Final Resu lt Performing Organization Address City/[facility]/ZIP Co de Phone Number [facility] [address] [place] [address], [place] [phone] * (ABNORMAL) Protime-INR (02/29/2024 12:02 PM EST) [...] Final Resu lt [facility] [address] [place] [address], [place] [phone] * hCG, serum, qualitative (02/29/2024 12:02 PM EST) [facility] hCG Qual Negative Negative 02/29/2024 5:54 PM EST [facility] Blood Venous blood specimen / Unknown Venipuncture / Unknown 02/29/2024 12:02 PM EST 02/29/2024 1:18 PM EST Vickey Sharma MD LAB BLOOD ORDERABLES Final Resu lt Performing Organization Address City/[facility]/ZIP Co de Phone Number [facility] [address] [place] [address], [place] [phone] * B-type natriuretic peptide (02/29/2024 12:02 PM EST) Only the most recent of2 resultswithin the time period is included. [facility] BNP 3 <=100 pcg/mL LAB CHEMISTRY METHOD 02/29/2024 2:05 PM EST [facility] Blood Venous blood specimen / Unknown Venipuncture / Unknown 02/29/2024 12:02 PM EST 02/29/2024 1:18 PM EST Vickey Sharma MD LAB BLOOD ORDERABLES Final Resu lt Performing Organization Address [facility]/ZIP Co de Phone Number [facility] [address] [place] [address], [place] [phone] * (ABNORMAL) Basic metabolic panel (02/29/2024 12:02 PM EST) Only the most recent of2 resultswithin the time period is included. [facility] Sodium 130(L) 133 - 145 mmol/L LAB CHEMISTRY METHOD 02/29/2024 1:46 PM [facility] Potassium 3.8 3.5 - [...] Final Resu lt [facility] [address] [place] [address], * ECG 12 lead (02/29/2024 10:49 AM EST) Only the most recent of3 resultswithin the time period is included. Ventricular Rate ECG 104 BPM GEMUSE Atrial Rate 104 BPM GEMUSE P-R Interval 134 ms GEMUSE QRS Duration 90 ms GEMUSE Q-T Interval 364 ms GEMUSE QTc 478 ms GEMUSE P Wave Guys 38 degrees GEMUSE R Guys -16 degrees GEMUSE T Guys 21 degrees GEMUSE ECG Interpretation Sinus tachycardia [...] of2 resultswithin the time period is included. us Provider Onbase ECG ORDERABLES Final Result * Vascular US [...] Signed Date: 02/23/2024 12:37 ET Workstation ID: [id number] Transcribed By: Self Edit Transcribed Date: 02/23/2024 [...] Signed Date: 02/23/2024 12:37 ET Workstation ID: [id number] Transcribed By: Self Edit Transcribed Date: 02/23/2024 12:30 ET Venancio Kaye MD CV VASCULAR PROCEDURES Yue [...] NP LAB BLOOD ORDERABLES Final Res ult [facility] [address] [place] [address], [place] [phone] * Lavender tube (02/23/2024 9:21 AM EST) [facility] Extra Tube Hold for add-ons. 02/23/2024 11:02 AM EST [facility] Comment:Auto resulted. Blood Venous blood specimen / Unknown Venipuncture / Unknown 02/23/2024 9:21 AM EST 02/23/2024 9:27 AM EST Pamela Sommer MD LAB BLOOD ORDERABLES Fin al Result Performing Organization Address City/[facility]/ZIP Co de Phone Number [facility] [address] [place] [address], [place] [phone] * (ABNORMAL) Activated Partial Thromboplastin Time - STAT (02/23/2024 7:31 AM EST) [facility] aPTT 42.3(H) 24.1 - 39.3 sec LAB COAGULATION METHOD 02/23/2024 8:21 AM [facility] Blood Venous blood specimen / Unknown Venipuncture / Unknown 02/23/2024 7:31 AM EST 02/23/2024 7:52 AM EST Venanico Kaye MD LAB BLOOD ORDERABLES Final Result Performing Organization Address City/[facility]/ZIP Co de Phone Number [facility] [address] [place] [address], [place] [phone] * Respiratory virus panel molecular study (02/23/2024 12:36 AM EST) [facility] Adenovirus Detection by PCR Not Detected [...] 1:45 AM EST [facility] Coronavirus HKU1 Not Detected Not Detected LAB MICROBIOLOGY METHOD 02/23/2024 1:45 AM EST [facility] Coronavirus OC43 Not Detected Not Detected LAB MICROBIOLOGY METHOD 02/23/2024 1:45 AM [facility] Coronavirus NL63 Not Detected Not Detected LAB MICROBIOLOGY METHOD 02/23/2024 1:45 AM EST [facility] Parainfluenza Virus 1 Not Detected Not Detected LAB MICROBIOLOGY METHOD 02/23/2024 1:45 AM [facility] Parainfluenza Virus 2 Not Detected Not Detected LAB MICROBIOLOGY METHOD 02/23/2024 1:45 AM [facility] Parainfluenza Virus 3 Not Detected Not Detected LAB MICROBIOLOGY METHOD 02/23/2024 1:45 AM EST [facility] Parainfluenza Virus 4 Not Detected [...] 02/23/2024 1:45 AM EST [facility] Bordetella pertussis Not Detected Not Detected LAB MICROBIOLOGY METHOD 02/23/2024 1:45 AM [facility] Bordetella parapertussis Not Detected Not Detected LAB MICROBIOLOGY METHOD 02/23/2024 1:45 AM [facility] Mycoplasma pneumo by PCR [...] AM EST Testing was performed using the [employer] Respiratory Pathogen PCR Assay. All results must [...] detection. Anahi Brantley DO LAB MICROBIOLOGY - GENERA L ORDERABLES Final Result [facility] [address] [place] [address], * (ABNORMAL) D-dimer, quantitative (02/23/2024 12:26 AM [...] infected, trauma patients, DIC, acute CVA, acute AR, unstable angina, AF, old age, , and smoking. D-Dimer may be decreased with: Initiation of heparin therapy and oral anticoagulants. Pamela Sommer MD LAB BLOOD ORDERABLES Fin al Result Performing Organization Address City/[facility]/ZIP Co de Phone Number [facility] [address] [place] [address], [place] [phone] * Procalcitonin (02/22/2024 8:55 PM EST) Procalcitonin [...] are obtained. Venancio Kaye MD LAB BLOOD ORDERABLES Final Result Performing Organization Address [facility]/ZIP Co de Phone Number [facility] [address] [place] [address], [place] [phone] * (ABNORMAL) Magnesium (02/22/2024 8:55 PM EST) [facility] Magnesium 1.8(L) 1.9 - 2.6 mg/dL LAB CHEMISTRY METHOD 02/22/2024 9:30 PM EST [facility] Blood Venous blood specimen / Unknown Venipuncture / Unknown 02/22/2024 8:55 PM EST 02/22/2024 9:03 PM EST Anahi Brantley LAB BLOOD ORDERABLES Yue l Result [facility] [address] [place] [address], [place] [phone] * Lipase (02/22/2024 8:55 PM EST) [facility] Lipase 34 13 - 75 unit/L LAB CHEMISTRY METHOD 02/22/2024 9:30 PM EST [facility] Blood Venous blood specimen / Unknown Venipuncture / Unknown 02/22/2024 8:55 PM EST 02/22/2024 9:03 PM EST Anahi Brantley LAB BLOOD ORDERABLES Yue l Result Performing Organization Address [facility]/ZIP Co de Phone Number [facility] [address] [place] [address], [place] [phone] * (ABNORMAL) Comprehensive metabolic panel (02/22/2024 8:55 PM EST) [facility] Sodium 136 133 - 145 mmol/L LAB CHEMISTRY METHOD 02/22/2024 9:30 PM EST [facility] Potassium 3.8 3.5 - 5.5 mmol/L LAB CHEMISTRY METHOD 02/22/2024 9:30 PM EST [facility] Chloride 103 96 - 110 mmol/L LAB CHEMISTRY METHOD 02/22/2024 9:30 PM EST [facility] CO2 29 21 - 32 [...] 9:30 PM [facility] Total Bilirubin 0.3 0.0 - 1.4 mg/dL LAB CHEMISTRY METHOD 02/22/2024 9:30 PM EST [facility] Blood Venous blood specimen / Unknown Venipuncture / Unknown 02/22/2024 8:55 PM EST 02/22/2024 9:03 PM EST Artantonio Brantley DO LAB BLOOD ORDERABLES Yue l Result [facility] [address] [place] [address], * Cervical Cancer Screening: HPV (08/26/2021) Pathologist [facility] Cervical Cancer Screening: HPV abstracted, negative Historical [...] currently active code status orders. Care Teams Emergency Medical Tech Relationship Specialty Start Date End Date Lynne Jean MD PCP - General Endocrinology 02/29/24
== END 2024-04-25 15:17 | disposition home or self-care (01) ==
LOC: HO.HPS 14:45
PROVIDERS: PCP Internal Medicine; Visit Provider Hospitalist
DX: I26.94 Multiple subsegmental thrombotic pulmonary emboli without acute cor pulmonale (principal); R06.02 Shortness of breath; J45.41 Moderate persistent asthma with (acute) exacerbation; G47.33 Obstructive sleep apnea (adult) (pediatric); J18.9 Pneumonia, unspecified organism
CPT/HCPCS: 99214

== ENCOUNTER 2024-06-04 10:17 | Outpatient (AMB) | payer OTHER, SELFPAY ==
--- NOTE | 2024-06-04 09:56 | MHC.PC.OV ---
Vital Signs 06/04/24 10:32 Height 5 ft 4 in Weight 288 lb BMI 49.4 Intake Visit Reasons: zepbound denial Intake Note: Discuss Zepbound denial Kick Boxer Required: No Allergies omeprazole Allergy (Mild, Verified 06/04/24 10:11) Rash Sulfa (Sulfonamide Antibiotics) Allergy (Unknown, Verified 06/04/24 10:11) Rash tramadol Allergy (Unknown, Verified 06/04/24 10:11) Rash venlafaxine [From Effexor] Allergy (Unknown, Verified 06/04/24 10:11) Rash Tobacco use date assessed: 03/05/24 Dental Screening Dental Screen Date: 08/25/23 HPI HPI Comments History of Present Illness Details This is a 49 year old female with a past medical history of hypertension, anxiety & depression, ddd cervical spine, cerebral aneurysm, PE, presenting for follow up Patient previously on wegovy therapy-she stopped in December. Had nausea, vomiting with the medication. She has been walking 5 days a week and eating a restricted calorie diet. Despite this she is unable to lose weight. This is negatively effecting her blood pressure, shortness of breath and muscle pain. She is currently 288 pounds and is 5' 4 tall. Resp-Still short of breath. Able to walk more. Still experiences. wheezing. No fevers. Seeing pulm. [facility]-had CTA with PEs, bilateral lower lobe consolidations. Saw hematology. Had echo, saw cardiology, following with pulmonary. . MSK: bilateral upper extremity neuropathy. History of neck surgery. On oxycodone. Neck pain continues to be heightened. Has had elevated ESR-23, CRP 9.6. Cortisol and TSH were normal. Pain continues to be more than basline, better than outset. Cervical xray with postoperative changes anterior fusion hardware at C3-C4 and disc spacer at C4-C5. Partial fusion of C3 and C4 vertebral bodies. Unchanged approximately 0.3 cm anterolisthesis C4 on C5. Mild neuroforaminal narrowing at C4-C5 yjus-anttavm-nrtq-right. Anxiety/Insomnia: stable on current medications Presented in Jan 2023 with hypertensive urgency, headaches, tachycardia and tremor. 24 urine with elevated metanephrines. Seen by endocrinology Dr Dockery and in neuroendocrine [facility]. Patient has imaging with adrenal thickening. Empty sella on MRI brain. Has had intermittent elevation in metanephrines. Symptoms and striae concerning for hypercortisolism but labs have not revealed such. She is to repeat labs in 3 months. She continues to have intermittent issues with headaches, vision changes, weakness, striae, skin ulceration, palpitations, anxiety, variable BP. -Family history of medullary thyroid cancer. 1st cousin. Family history (sister) MGUS, mast cell disorder ROS see HPI PHYSICAL EXAM: Telehealth [facility] Medical History Pneumonia Asthma Vitamin D deficiency Right shoulder pain Non-infective diarrhea Mixed anxiety and depressive disorder Mild persistent asthma Hyperlipidemia Headache Cyst of nasopharynx Cobalamin deficiency Cervical radiculopathy Cerebral arterial aneurysm Body mass index 40.0-44.9, adult ADHD Family History Other FH: mental illness Social History Household Members: Family Housing: House Alcohol intake: former Patient Tobacco Use Status: Former Tobacco user Cigarette Packs Per Day: 1 Years Smoked: 5 e-Cigarette/Vaping Use: Never Used Current occupational status: employed 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 Efren Gonzalez, Monet Delgadillo, Juan Goldsmith and colleagues, with an educational lonnie from [employer]. Physical exam (Primary Care) Tobacco/Smoking Status: Tobacco use Status Tobacco use date assessed 03/05/24 06/04/24 09:57 Patient Tobacco Use Status Former Tobacco user 06/04/24 10:16 e-Cigarette/Vaping Use Never Used 06/04/24 10:16 Thrive Assessment: Date of Thrive Assessment Date Thrive assessed 03/05/24 06/04/24 09:57 Telehealth Telehealth Telehealth Platform: Telephone Location of provider rendering services: practice address Location of patient: address on file Patient Identification confirmed using: Name, : Yes Telehealth method: voice only Patient verbally consented to treatment: Yes Patient verbally consented to billing insurance company: Yes Patient informed of any privacy concerns related to visit: Yes Minutes spent on Phone/Video with Pt.: 32 Coding Level of Care Code Tele Est Pt Level 4 (36935) Diagnoses Obesity, morbid, BMI 40.0-49.9 E66.01 ROGELIO (obstructive sleep apnea) G47.33 Primary hypertension I10 Hypertension type: primary hypertension Assessment & Plan Assessment & Plan (1) Obesity, morbid, BMI 40.0-49.9: Code(s): E66.01 - Morbid (severe) obesity due to excess calories Category: Medical (2) ROGELIO (obstructive sleep apnea): Code(s): G47.33 - Obstructive sleep apnea (adult) (pediatric) Category: Medical (3) Hypertension: Code(s): I10 - Essential (primary) hypertension Category: Medical Qualifiers: Hypertension type: primary hypertension Qualified Code(s): I10 - Essential (primary) hypertension Plan This is a 49 year old patient who is morbidly obese with ROGELIO and hypertension who has failed lifestyle/exercise modification for weight loss. Her is/it project manager is okay with her being on GLP. Zepbound ordered
[2024-06-04 10:32] VITALS: BMI 49.4
--- OUTSIDE RECORDS SUMMARY | 2024-06-04 11:44 | XMS_ITS | Encounter Summary ---
Author Organization [facility] Address [address] [place] [address] Care Team Providers Care Network Engineering Advisor Name Role Phone Lynne Ramos MD Primary Care Provider Eileen Diaz MD Primary Care Provider [place] [facility] [facility], Pcp Primary Care Provider Lynne Seaman MD Primary Care Provider Suzi Anthony PA-C Unavailable Unavailable Venancio Brown MD Unavailable [phone] Encounter Details Date Type Department Care Team Description 03/23/2018 [facility] Medical Records [address] [place] [address] Abstract, Provider Social History Tobacco Use Types [...] on filedocumented in this encounter Care Teams Network Engineering Advisor Relationship Specialty Start Date End Date Lynne Ramos MD PCP - General Internal Medicine 03/23/16 05/03/20 Eileen Aleman MD PCP - General Internal Medicine 05/04/20 09/14/21 [facility], Pcp PCP - General Internal Medicine 09/15/21 01/05/22 Lynne Ramos MD PCP - General Internal Medicine 01/06/22 Suzi Kelly PA-C Specialist Internal Medicine 01/06/22 Venancio Brown MD [address] [place] [address] Specialist Cardiovascular Disease 01/06/22 documented as of this encounter
--- OUTSIDE RECORDS SUMMARY | 2024-06-04 11:44 | XMS_ITS | Encounter Summary ---
Author Organization [facility] Address [address] [place] [address] Care Team Providers Care Media Production Operator Name Role Phone Eileen Aleman MD Primary Care Provider [facility], Pcp Primary Care Provider Lynne Seaman MD Primary Care Provider Suzi Anthony PA-C Unavailable Unavailable Venancio Brown MD Unavailable [phone] Encounter Details Date Type Department Care Team Description 04/22/2021 Pt. Non Urgent Medical Question Medicine/Pediatrics - [address] [phone] Eileen Aleman MD DDD (degenerative disc disease), [...] disc documented in this encounter Care Teams Media Production Operator Relationship Specialty Start Date End Date Eileen Aleman MD PCP - General Internal Medicine 05/04/20 09/14/21 [facility], Pcp PCP - General Internal Medicine 09/15/21 01/05/22 Lynne Ramos MD PCP - General Internal Medicine 01/06/22 Suzi Kelly PA-C Specialist Internal Medicine 01/06/22 Venancio Brown MD [address] [place] [address] Specialist Cardiovascular Disease 01/06/22 documented as of this encounter
--- OUTSIDE RECORDS SUMMARY | 2024-06-04 11:44 | XMS_ITS | Encounter Summary ---
Author Organization [facility] Address [address] [place] [address] Care Team Providers Care Manager Biologics Name Role Phone Lynne Ramos MD Primary Care Provider Eileen Diaz MD Primary Care Provider [facility], Pcp Primary Care Provider Lynne Seaman MD Primary Care Provider Suzi Anthony PA-C Unavailable Unavailable Venancio Brown MD Unavailable [phone] Reason for Visit * Reason Onset Date Comments Prior Authorization 07/08/2016 Encounter Details Date Type Department Care Team Description 07/08/2016 [place] Medicine/Pediatrics - [address] [phone] Lynne Ramos MD Prior Authorization Social History Tobacco Use Types Packs/Day Years [...] encounter Miscellaneous Notes * Telephone Encounter - Meera Flood M.A. - 07/12/2016 9:55 AM EDT Pt is all set * Telephone Encounter - Meera Flood M.A. - 07/12/2016 9:51 AM EDT Msg for pt to call back, she has to bring her contraceptive card from [facility] to the pharmacy,if you dont have one please call [facility] * Telephone Encounter - Sophy Magallanes - 07/08/2016 1:39 PM EDT Pre Authorization for Medication-do not complete and send this encounter unless you have the fax from the pharmacy. Is this a Cover My Meds request: [place] of Medication nuvaring vaginal ring Dose of Medication How does patient take this med? Insert 1 ring vaginally for 3 weeks What Pharmacy did the fax come from: [facility] fax #: [phone] [employer] Party Information from fax: What Prescription Plan does the patient have? Advance rx BIN/PCN if applicable: Cardholder ID:[id number] Person Code: Relationship Code: 1 Help desk phone: [phone] documented in this encounter Plan of Treatment Not on file documented as of this encounter Visit Diagnoses Not on filedocumented in this encounter Care Teams Manager Biologics Relationship Specialty Start Date End Date Lynne Ramos MD PCP - General Internal Medicine 03/23/16 05/03/20 Eileen Aleman MD PCP - General Internal Medicine 05/04/20 09/14/21 [facility], Pcp PCP - General Internal Medicine 09/15/21 01/05/22 Lynne Ramos MD PCP - General Internal Medicine 01/06/22 Suzi Kelly PA-C Specialist Internal Medicine 01/06/22 Venancio Brown MD [address] [place] [address] Specialist Cardiovascular Disease 01/06/22 documented as of this encounter
--- OUTSIDE RECORDS SUMMARY | 2024-06-04 11:44 | XMS_ITS | Encounter Summary ---
Author Organization [facility] Address [address] [place] [address] Care Team Providers Care Extrusion Press Operator Name Role Phone Lynne Ramos MD Primary Care Provider Eileen Diaz MD Primary Care Provider [place] [facility], Pcp Primary Care Provider Lynne Seaman MD Primary Care Provider UnavailSuzi Guzman PA-C Unavailable Unavailable Venancio Brown MD Unavailable Encounter Details Date Type Department Care Team Description 11/21/2016 [facility] Controlled Substance Contract Medical Records [address] [place] [id number] Abstract, Provider Social History Tobacco Use Types [...] on filedocumented in this encounter Care Teams Extrusion Press Operator Relationship Specialty Start Date End Date Lynne Ramos MD PCP - General Internal Medicine 03/23/16 05/03/20 Eileen Aleman MD PCP - General Internal Medicine 05/04/20 09/14/21 [facility], Pcp PCP - General Internal Medicine 09/15/21 01/05/22 Lynne Ramos MD PCP - General Internal Medicine 01/06/22 Suzi Kelly PA-C Specialist Internal Medicine 01/06/22 Venancio Brown MD [address] [place] [address] Specialist Cardiovascular Disease 01/06/22 documented as of this encounter
--- OUTSIDE RECORDS SUMMARY | 2024-06-04 11:44 | XMS_ITS | Encounter Summary ---
Author Organization [facility] Address [address] [place] [address] Care Team Providers Care Mophead Sewer Name Role Phone Lynne Ramos MD Primary Care Provider Eileen Diaz MD Primary Care Provider [place] [facility], Pcp Primary Care Provider Lynne Seaman MD Primary Care Provider UnavailuSzi Guzman PA-C Unavailable Unavailable Venancio Brown MD Unavailable [phone] Encounter Details Date Type Department Care Team Description 08/08/2016 [facility] Controlled Substance Contract Medical Records [address] [place] [id number] Abstract, Provider Social History Tobacco Use Types [...] on filedocumented in this encounter Care Teams Mophead Sewer Relationship Specialty Start Date End Date Lynne Ramos MD PCP - General Internal Medicine 03/23/16 05/03/20 Eileen Aleman MD PCP - General Internal Medicine 05/04/20 09/14/21 [facility], Pcp PCP - General Internal Medicine 09/15/21 01/05/22 Lynne Ramos MD PCP - General Internal Medicine 01/06/22 Suzi Kelly PA-C Specialist Internal Medicine 01/06/22 Venancio Brown MD [address] [place] [address] Specialist Cardiovascular Disease 01/06/22 documented as of this encounter
--- OUTSIDE RECORDS SUMMARY | 2024-06-04 11:44 | XMS_ITS | Encounter Summary ---
Author Organization [facility] Address [address] [place] [address] Care Team Providers Care Urologist Md Name Role Phone Lynne Ramos MD Primary Care Provider Eileen Diaz MD Primary Care Provider [facility], Pcp Primary Care Provider Lynne Seaman MD Primary Care Provider Suzi Anthony PA-C Unavailable Unavailable Venancio Brown MD Unavailable [phone] Encounter Details Date Type Department Care Team Description 01/21/2020 Refill OBGYN - [place] [address] [place] [address] Ladan Copeland MD [address] [place] [address] Social History Tobacco Use Types Packs/Day Years [...] * Telephone Encounter - Chrystal Womack - 01/21/2020 1:38 PM EST WHEN WAS THE PATIENTS LAST ANNUAL FOREST AND CONSERVATION WORKER EXAM? 10/31/18 Does patient have an upcoming appointment? No will call pt to schedule annual (THE MEDICATION REQUESTED IS ON THE MED [...] the end of the day? NO Payor: JAYLEN / Plan: POS $20/30 RUPERTO MACIEL [id number] JENA TRADITNAL / Product Type: POS [id number]-Cezkeiv documented in this encounter Plan of Treatment Not on file documented as of this encounter Visit Diagnoses Not on filedocumented in this encounter Care Teams Urologist Md Relationship Specialty Start Date End Date Lynne Ramos MD PCP - General Internal Medicine 03/23/16 05/03/20 Eileen Aleman MD PCP - General Internal Medicine 05/04/20 09/14/21 [facility], Pcp PCP - General Internal Medicine 09/15/21 01/05/22 Lynne Ramos MD PCP - General Internal Medicine 01/06/22 Suzi Kelly PA-C Specialist Internal Medicine 01/06/22 Venancio Brown MD [address] [place] [address] Specialist Cardiovascular Disease 01/06/22 documented as of this encounter
--- OUTSIDE RECORDS SUMMARY | 2024-06-04 11:44 | XMS_ITS | Encounter Summary ---
Author Organization [facility] Address [address] [place] [address] Care Team Providers Care Medical Administrative Assistant Name Role Phone Lynne Ramos MD Primary Care Provider Eileen Diaz MD Primary Care Provider [place] [facility], Pcp Primary Care Provider Lynne Seaman MD Primary Care Provider Suzi Anthony PA-C Unavailable Unavailable Venancio Brown MD Unavailable [phone] Encounter Details Date Type Department Care Team Description 07/24/2018 Orders Only Medicine/Pediatrics [address] [phone] Lynne Ramos MD Social History Tobacco Use [...] on filedocumented in this encounter Care Teams Medical Administrative Assistant Relationship Specialty Start Date End Date Lynne Ramos MD PCP - General Internal Medicine 03/23/16 05/03/20 Eileen Aleman MD PCP - General Internal Medicine 05/04/20 09/14/21 [facility], Pcp PCP - General Internal Medicine 09/15/21 01/05/22 Lynne Ramos MD PCP - General Internal Medicine 01/06/22 Suzi Kelly PA-C Specialist Internal Medicine 01/06/22 Venancio Brown MD [address] [place] [address] Specialist Cardiovascular Disease 01/06/22 documented as of this encounter
--- OUTSIDE RECORDS SUMMARY | 2024-06-04 11:44 | XMS_ITS | Encounter Summary ---
Author Organization [facility] Address [address] [place] [address] Care Team Providers Care Instructor Nurse Name Role Phone Lynne Ramos MD Primary Care Provider Eileen Diaz MD Primary Care Provider [facility], Pcp Primary Care Provider Lynne Seaman MD Primary Care Provider Suzi Anthony PA-C Unavailable Unavailable Venancio Brown MD Unavailable [phone] Encounter Details Date Type Department Care Team Description 11/15/2019 Orders Only Medicine/Pediatrics [address] [phone] Lynne Ramos MD Social History Tobacco Use [...] on filedocumented in this encounter Care Teams Instructor Nurse Relationship Specialty Start Date End Date Lynne Ramos MD PCP - General Internal Medicine 03/23/16 05/03/20 Eileen Aleman MD PCP - General Internal Medicine 05/04/20 09/14/21 [facility], Pcp PCP - General Internal Medicine 09/15/21 01/05/22 Lynne Ramos MD PCP - General Internal Medicine 01/06/22 Suzi Kelly PA-C Specialist Internal Medicine 01/06/22 Venancio Brown MD [address] [place] [address] Specialist Cardiovascular Disease 01/06/22 documented as of this encounter
--- OUTSIDE RECORDS SUMMARY | 2024-06-04 11:44 | XMS_ITS | Encounter Summary ---
Author Organization [facility] Address [address] [place] [address] Care Team Providers Care Orthophoto Tech/Draftsman Name Role Phone Eileen Aleman MD Primary Care Provider [facility], Pcp Primary Care Provider Lynne Seaman MD Primary Care Provider Suzi Anthony PA-C Unavailable Unavailable Venancio Brown MD Unavailable [phone] Encounter Details Date Type Department Care Team Description 07/27/2021 Telephone [facility] [address] [place] [address] Edson Adam PA-C [address] [place] [address] Social History Tobacco Use Types Packs/Day Years [...] on filedocumented in this encounter Care Teams Orthophoto Tech/Draftsman Relationship Specialty Start Date End Date Eileen Aleman MD PCP - General Internal Medicine 05/04/20 09/14/21 Replaced By [facility], Pcp PCP - General Internal Medicine 09/15/21 01/05/22 Lynne Ramos MD PCP - General Internal Medicine 01/06/22 Suzi Kelly PA-C Specialist Internal Medicine 01/06/22 Venancio Brown MD [address] [place] [address] Specialist Cardiovascular Disease 01/06/22 documented as of this encounter
--- OUTSIDE RECORDS SUMMARY | 2024-06-04 11:44 | XMS_ITS | Encounter Summary ---
Author Organization [facility] Address [address] [place] [address] Care Team Providers Care Robotics Engineer Name Role Phone Lynne Ramos MD Primary Care Provider Eileen Diaz MD Primary Care Provider [facility], Pcp Primary Care Provider Lynne Seaman MD Primary Care Provider Suzi Anthony PA-C Unavailable Unavailable Venancio Brown MD Unavailable [phone] Encounter Details Date Type Department Care Team Description 05/25/2018 [facility] Controlled Substance Contract Medical Records [address] [place] [phone] Abstract, Provider Social History Tobacco Use Types [...] on filedocumented in this encounter Care Teams Robotics Engineer Relationship Specialty Start Date End Date Lynne Ramos MD PCP - General Internal Medicine 03/23/16 05/03/20 Eileen Aleman MD PCP - General Internal Medicine 05/04/20 09/14/21 [facility] PCP - General Internal Medicine 09/15/21 01/05/22 Lynne Ramos MD PCP - General Internal Medicine 01/06/22 Suzi Kelly PA-C Specialist Internal Medicine 01/06/22 Venancio Brown MD [address] [place] [address] Specialist Cardiovascular Disease 01/06/22 documented as of this encounter
--- OUTSIDE RECORDS SUMMARY | 2024-06-04 11:44 | XMS_ITS | Encounter Summary ---
Author Organization [facility] Address [address] [place] [address] Care Team Providers Care Octave Board Assembler Name Role Phone Lynne Ramos MD Primary Care Provider Eileen Diaz MD [facility] Primary Care Provider Lynne Seaman MD Primary Care Provider Suzi Anthony PA-C Unavailable Unavailable Venancio Brown MD Unavailable [phone] Encounter Details Date Type Department Care Team Description 01/13/2020 [facility] Medical Records [address] [place] [address] Abstract, Provider Social History Tobacco Use Types [...] on filedocumented in this encounter Care Teams Octave Board Assembler Relationship Specialty Start Date End Date Lynne Ramos MD PCP - General Internal Medicine 03/23/16 05/03/20 Eileen Aleman MD PCP - General Internal Medicine 05/04/20 09/14/21 [facility] PCP - General Internal Medicine 09/15/21 01/05/22 Lynne Ramos MD PCP - General Internal Medicine 01/06/22 Suzi Kelly PA-C Specialist Internal Medicine 01/06/22 Venancio Brown MD [address] [place] [address] Specialist Cardiovascular Disease 01/06/22 documented as of this encounter
--- OUTSIDE RECORDS SUMMARY | 2024-06-04 11:44 | XMS_ITS | Encounter Summary ---
Author Organization [facility] Address [address] [place] [address] Care Team Providers Care Computer Equipment Installer Name Role Phone Eileen Aleman MD Primary Care Provider [facility], Pcp Primary Care Provider Lynne Seaman MD Primary Care Provider Suzi Anthony PA-C Unavailable Unavailable Venancio Brown MD Unavailable [phone] Encounter Details Date Type Department Care Team Description 07/13/2021 Warehouse Specialist Report Medical Records [address] [place] [id number] Abstract, Provider Social History Tobacco Use Types [...] suspected to have Coronavirus/COVID-19? No / Unsure 07/07/2021 1:31 PM EDT documented as of this encounter Plan of Treatment Not on file documented as of this encounter Visit Diagnoses Not on filedocumented in this encounter Care Teams Computer Equipment Installer Relationship Specialty Start Date End Date Eileen Aleman MD PCP - General Internal Medicine 05/04/20 09/14/21 On License Of [facility], Pcp PCP - General Internal Medicine 09/15/21 01/05/22 Lynne Ramos MD PCP - General Internal Medicine 01/06/22 Suzi Kelly PA-C Specialist Internal Medicine 01/06/22 Venancio Brown MD [address] [place] [address] Specialist Cardiovascular Disease 01/06/22 documented as of this encounter
--- OUTSIDE RECORDS SUMMARY | 2024-06-04 11:44 | XMS_ITS | Encounter Summary ---
Author Organization [facility] Address [address] [place] [address] Care Team Providers Care Tunnel Inspector Name Role Phone Eileen Aleman MD Primary Care Provider [facility], Pcp Primary Care Provider Lynne Seaman MD Primary Care Provider Suzi Anthony PA-C Unavailable Unavailable Venancio Brown MD Unavailable [phone] Encounter Details Date Type Department Care Team Description 06/21/2021 Pt. Non Urgent Medical Question [facility] [address] [place] [address] Edson Adam PA-C [address] [place] [address] Social History Tobacco Use Types Packs/Day Years [...] on filedocumented in this encounter Care Teams Tunnel Inspector Relationship Specialty Start Date End Date Eileen Aleman MD PCP - General Internal Medicine 05/04/20 09/14/21 [facility], Pcp PCP - General Internal Medicine 09/15/21 01/05/22 Lynne Ramos MD PCP - General Internal Medicine 01/06/22 Suzi Kelly PA-C Specialist Internal Medicine 01/06/22 Venancio Brown MD [address] [place] [address] Specialist Cardiovascular Disease 01/06/22 documented as of this encounter
--- OUTSIDE RECORDS SUMMARY | 2024-06-04 11:45 | XMS_ITS | Encounter Summary ---
Author Organization Formerly [facility] Address [address] [place] [address] Care Team Providers Care Slp Name Role Phone Lynne Ramos MD Primary Care Provider Eileen Diaz MD [facility] Primary Care Provider Lynne Seaman MD Primary Care Provider Suzi Anthony PA-C Unavailable Unavailable Venancio Bronw MD Unavailable Encounter Details Date Type Department Care Team Description 12/17/2018 [facility] Medical Records [address] [place] [address] Abstract, Provider Social History Tobacco Use Types [...] on filedocumented in this encounter Care Teams Slp Relationship Specialty Start Date End Date Lynne Ramos MD PCP - General Internal Medicine 03/23/16 05/03/20 Eileen Aleman MD PCP - General Internal Medicine 05/04/20 09/14/21 [facility], [facility] PCP - General Internal Medicine 09/15/21 01/05/22 Lynne Ramos MD PCP - General Internal Medicine 01/06/22 Suzi Kelly PA-C Specialist Internal Medicine 01/06/22 Venancio Brown MD [address] [place] [address] Specialist Cardiovascular Disease 01/06/22 documented as of this encounter
--- OUTSIDE RECORDS SUMMARY | 2024-06-04 11:45 | XMS_ITS | Encounter Summary ---
Author Organization [facility] Address [address] [place] [address] Care Team Providers Care Public Service Officer Name Role Phone Lynne Ramos MD Primary Care Provider Eileen Diaz MD Primary Care Provider Spring cruz [facility], Pcp Primary Care Provider Lynne Seaman MD Primary Care Provider Suzi Anthony PA-C Unavailable Unavailable Venancio Brown MD Unavailable [phone] Encounter Details Date Type Department Care Team Description 08/17/2016 [facility] Medical Records [address] [place] [address] Kadeem Godoy [facility] Social History Tobacco Use [...] on filedocumented in this encounter Care Teams Public Service Officer Relationship Specialty Start Date End Date Lynne Ramos MD PCP - General Internal Medicine 03/23/16 05/03/20 Eileen Aleman MD PCP - General Internal Medicine 05/04/20 09/14/21 [facility], [facility] PCP - General Internal Medicine 09/15/21 01/05/22 Lynne Ramos MD PCP - General Internal Medicine 01/06/22 Suzi Kelly PA-C Specialist Internal Medicine 01/06/22 Venancio Brown MD [address] [place] [address] Specialist Cardiovascular Disease 01/06/22 documented as of this encounter
--- OUTSIDE RECORDS SUMMARY | 2024-06-04 11:45 | XMS_ITS | Encounter Summary ---
Author Organization [facility] Address [address] [place] [address] Care Team Providers Care Test Administrator Name Role Phone Lynne Ramos MD Primary Care Provider Suzi Anthony PA-C Unavailable Unavailable Venancio Brown MD Unavailable [phone] Encounter Details Date Type Department Care Team Description 01/06/2022 [facility] Medical Records [address] [place] [address] Abstract, Provider Social History Tobacco Use Types [...] Date/Time Associated Diagnosis Comments OUTSIDE LAB Routine 01/06/2022 documented in this encounter Results * OUTSIDE LAB (01/06/2022) Provider Default LAB documented in this encounter Visit Diagnoses Not on filedocumented in this encounter Care Teams Test Administrator Relationship Specialty Start Date End Date Rachel, Lynne M, MD PCP - General Internal Medicine 01/06/22 Suzi Kelly PA-C Specialist Internal Medicine 01/06/22 Venancio Brown MD [address] [place] [address] Specialist Cardiovascular Disease 01/06/22 documented as of this encounter
--- OUTSIDE RECORDS SUMMARY | 2024-06-04 11:45 | XMS_ITS | Encounter Summary ---
Author Organization [facility] Address [address] [place] [address] Care Team Providers Care Shale Planer Operator Helper Name Role Phone Lynne Ramos MD Primary Care Provider Eileen Diaz MD Primary Care Provider Spring cruz [facility], Pcp Primary Care Provider Lynne Seaman MD Primary Care Provider Suzi Anthony PA-C Unavailable Unavailable Venancio Brown MD Unavailable [phone] Encounter Details Date Type Department Care Team Description 10/04/2018 [facility] Medical Records [address] [place] [address] Abstract, Provider Social History Tobacco Use Types [...] on filedocumented in this encounter Care Teams Shale Planer Operator Helper Relationship Specialty Start Date End Date Lynne Ramos MD PCP - General Internal Medicine 03/23/16 05/03/20 Eileen Aleman MD PCP - General Internal Medicine 05/04/20 09/14/21 [facility], [facility] PCP - General Internal Medicine 09/15/21 01/05/22 Lynne Ramos MD PCP - General Internal Medicine 01/06/22 Suzi Kelly PA-C Specialist Internal Medicine 01/06/22 Venancio Brown MD [address] [place] [address] Specialist Cardiovascular Disease 01/06/22 documented as of this encounter
--- OUTSIDE RECORDS SUMMARY | 2024-06-04 11:45 | XMS_ITS | Encounter Summary ---
Author Organization [facility] Address [address] [place] [address] Care Team Providers Care Plate Stacker Name Role Phone Lynne Ramos MD Primary Care Provider Eileen Diaz MD Primary Care Provider Spring cruz [facility], Pcp Primary Care Provider Lynne Seaman MD Primary Care Provider Suzi Anthony PA-C Unavailable Unavailable Venancio Brown MD Unavailable [phone] Encounter Details Date Type Department Care Team Description 02/05/2018 [facility] Medical Records [address] [place] [address] Abstract, Provider Social History Tobacco Use Types [...] on filedocumented in this encounter Care Teams Plate Stacker Relationship Specialty Start Date End Date Lynne Ramos MD PCP - General Internal Medicine 03/23/16 05/03/20 Eileen Aleman MD PCP - General Internal Medicine 05/04/20 09/14/21 [facility], [facility] PCP - General Internal Medicine 09/15/21 01/05/22 Lynne Ramos MD PCP - General Internal Medicine 01/06/22 Suzi Kelly PA-C Specialist Internal Medicine 01/06/22 Venancio Brown MD [address] [place] [address] Specialist Cardiovascular Disease 01/06/22 documented as of this encounter
--- OUTSIDE RECORDS SUMMARY | 2024-06-04 11:45 | XMS_ITS | Encounter Summary ---
Author Organization [facility] Address [address] [place] [address] Care Team Providers Care Aerial Installer Name Role Phone Lynne Ramos MD Primary Care Provider Eileen Diaz MD [facility] Primary Care Provider Lynne Seaman MD Primary Care Provider Suzi Anthony PA-C Unavailable Unavailable Venancio Brown MD Unavailable [phone] Encounter Details Date Type Department Care Team Description 08/07/2019 [facility] Medical Records [address] [place] [address] Abstract, Provider Social History Tobacco Use Types [...] on filedocumented in this encounter Care Teams Aerial Installer Relationship Specialty Start Date End Date Lynne Ramos MD PCP - General Internal Medicine 03/23/16 05/03/20 Eileen Aleman MD PCP - General Internal Medicine 05/04/20 09/14/21 [facility], [facility] PCP - General Internal Medicine 09/15/21 01/05/22 Lynne Ramos MD PCP - General Internal Medicine 01/06/22 Suzi Kelly PA-C Specialist Internal Medicine 01/06/22 Venancio Brown MD [address] [place] [address] Specialist Cardiovascular Disease 01/06/22 documented as of this encounter
--- OUTSIDE RECORDS SUMMARY | 2024-06-04 11:45 | XMS_ITS | Encounter Summary ---
Author Organization [facility] Address [address] [place] [address] Care Team Providers Care Patient Resource Coordinator Name Role Phone Eileen Aleman MD Primary Care Provider [facility], Pcp Primary Care Provider Lynne Seaman MD Primary Care Provider Suzi Anthony PA-C Unavailable Unavailable Venancio Brown MD Unavailable [phone] Encounter Details Date Type Department Care Team Description 06/01/2021 Orders Only Medicine/Pediatrics - [address] [address] Eileen Aleman MD Cough (Primary Dx); Sore [...] pharyngitis documented in this encounter Care Teams Patient Resource Coordinator Relationship Specialty Start Date End Date Eileen Aleman MD PCP - General Internal Medicine 05/04/20 09/14/21 [facility] Pcp PCP - General Internal Medicine 09/15/21 01/05/22 Lynne Ramos MD PCP - General Internal Medicine 01/06/22 Suzi Kelly PA-C Specialist Internal Medicine 01/06/22 Venancio Brown MD [address] [place] [address] Specialist Cardiovascular Disease 01/06/22 documented as of this encounter
--- OUTSIDE RECORDS SUMMARY | 2024-06-04 11:45 | XMS_ITS | Encounter Summary ---
Author Organization [facility] Address [address] [place] [address] Care Team Providers Care Concession Stand Attendant Name Role Phone Lynne Ramos MD Primary Care Provider Suzi Anthony PA-C Unavailable Unavailable Venancio Brown MD Unavailable [phone] Encounter Details Date Type Department Care Team Description 01/06/2022 [facility] Medical Records [address] [place] [address] Abstract, Provider Social History Tobacco Use Types [...] on filedocumented in this encounter Care Teams Concession Stand Attendant Relationship Specialty Start Date End Date Lynne Ramos MD PCP - General Internal Medicine 01/06/22 Suzi Kelly PA-C Specialist Internal Medicine 01/06/22 Venancio Brown MD [address] [place] [address] Specialist Cardiovascular Disease 01/06/22 documented as of this encounter
--- OUTSIDE RECORDS SUMMARY | 2024-06-04 11:45 | XMS_ITS | Encounter Summary ---
Author Organization [facility] Address [address] [place] [address] Care Team Providers Care Boatswain'S Mate Name Role Phone Community, Pcp Primary Care Provider Lynne Seaman MD Primary Care Provider Suzi Anthony PA-C Unavailable Unavailable Venancio Brown MD Unavailable [phone] Encounter Details Date Type Department Care Team Description 11/08/2021 [facility] Neurosurgery [place] [address] [facility] [address] [place] [phone] Karen Hair MD [address] [id number] Social History Tobacco Use Types Packs/Day Years [...] on filedocumented in this encounter Care Teams Boatswain'S Mate Relationship Specialty Start Date End Date [facility], Pcp PCP - General Internal Medicine 09/15/21 01/05/22 Lynne Ramos MD PCP - General Internal Medicine 01/06/22 Suzi Kelly PA-C Specialist Internal Medicine 01/06/22 Venancio Brown MD [address] [address] Specialist Cardiovascular Disease 01/06/22 documented as of this encounter
--- OUTSIDE RECORDS SUMMARY | 2024-06-04 11:45 | XMS_ITS | Encounter Summary ---
Author Organization [facility] Address [address] [place] [address] Care Team Providers Care Bark Skinner Name Role Phone Lynne Ramos MD Primary Care Provider Eileen Diaz MD Primary Care Provider [facility], Pcp Primary Care Provider Lynne Seaman MD Primary Care Provider Suzi Anthony PA-C Unavailable Unavailable Venancio Brown MD Unavailable [phone] Encounter Details Date Type Department Care Team Description 09/20/2017 [facility]rolled [facility] Medical Records [address] [place] [id number] Abstract, Provider Social History Tobacco Use Types [...] on filedocumented in this encounter Care Teams Bark Skinner Relationship Specialty Start Date End Date Lynne Ramos MD PCP - General Internal Medicine 03/23/16 05/03/20 Eileen Aleman MD PCP - General Internal Medicine 05/04/20 09/14/21 [facility], [facility] PCP - General Internal Medicine 09/15/21 01/05/22 Lynne Ramos MD PCP - General Internal Medicine 01/06/22 Suzi Kelly PA-C Specialist Internal Medicine 01/06/22 Venancio Brown MD [address] [place] [address] Specialist Cardiovascular Disease 01/06/22 documented as of this encounter
--- OUTSIDE RECORDS SUMMARY | 2024-06-04 11:45 | XMS_ITS | Encounter Summary ---
Author Organization [facility] Address [address] [place] [address] Care Team Providers Care Associate Technician Name Role Phone Lynne Ramos MD Primary Care Provider Eileen Diaz MD Primary Care Provider [facility], Pcp Primary Care Provider Lynne Seaman MD Primary Care Provider Suzi Anthony PA-C Unavailable Unavailable Venancio Brown MD Unavailable [phone] Encounter Details Date Type Department Care Team Description 08/18/2016 Pt. Non Urgent Medical Question [facility] [address] [place] [address] Nilsa Luevano MD Social History Tobacco Use Types Packs/Day [...] as of this encounter Progress Notes * Arelis Guzmán R.N. - 08/18/2016 1:11 PM EDTFrom: Juan A Ferreira To: Nilsa Luevano MD Sent: 08/18/2016 12:10 PM EDT Subject: Prometrium Hi Dr. Luevano, I wanted to check in with in regards to the prometrium. I should have finished taking it on Monday,however, I was admitted this past Monday for 5 days, had an ERCP Monday and gallbladder removed yesterday. I have 2 days left on prometrium. Should I take the 2 days or do I have restart the whole12 days? Thank you, Juan A documented in this encounter Plan of Treatment Not on file documented as of this encounter Visit Diagnoses Not on filedocumented in this encounter Care Teams Associate Technician Relationship Specialty Start Date End Date Lynne Ramos MD PCP - General Internal Medicine 03/23/16 05/03/20 Eileen Aleman MD PCP - General Internal Medicine 05/04/20 09/14/21 [facility], Pcp PCP - General Internal Medicine 09/15/21 01/05/22 Lynne Ramos MD PCP - General Internal Medicine 01/06/22 Suzi Kelly PA-C Specialist Internal Medicine 01/06/22 Venancio Brown MD [address] [place] [address] Specialist Cardiovascular Disease 01/06/22 documented as of this encounter
--- OUTSIDE RECORDS SUMMARY | 2024-06-04 11:45 | XMS_ITS | Encounter Summary ---
Author Organization [facility] Address [address] [place] [address] Care Team Providers Care Tractor Trailer Driver Name Role Phone Lynne Ramos MD Primary Care Provider Eileen Diaz MD Primary Care Provider [facility], Pcp Primary Care Provider Lynne Seaman MD Primary Care Provider Suzi Anthony PA-C Unavailable Unavailable Venancio Brown MD Unavailable [phone] Reason for Visit * Reason Onset Date Comments Call From Pharmacy 08/17/2016 Encounter Details Date Type Department Care Team Description 08/17/2016 Telephone General Surgery [address] [place] [phone] Kadeem Matos MD [address] [place] [address] Call From Pharmacy Social History Tobacco Use [...] - 08/17/2016 2:57 PM EDT Garrick from [facility] Pharmacy on [facility] in [place] called stating Dr Matos prescribed Colaceand Sennas. The Sennas has Colace in it. Pharmacist is asking which one does Dr Matos want to prescribe. Please call [phone] documented in this encounter Plan of Treatment Not on file documented as of this encounter Visit Diagnoses Not on filedocumented in this encounter Care Teams Tractor Trailer Driver Relationship Specialty Start Date End Date Lynne Ramos MD PCP - General Internal Medicine 03/23/16 05/03/20 Eileen Aleman MD PCP - General Internal Medicine 05/04/20 09/14/21 [facility], Pcp PCP - General Internal Medicine 09/15/21 01/05/22 Lynne Ramos MD PCP - General Internal Medicine 01/06/22 Suzi Kelly PA-C Specialist Internal Medicine 01/06/22 Venancio Brown MD [address] [place] [address] Specialist Cardiovascular Disease 01/06/22 documented as of this encounter
--- OUTSIDE RECORDS SUMMARY | 2024-06-04 11:45 | XMS_ITS | Encounter Summary ---
Author Organization [facility] Address [address] [place] [address] Care Team Providers Care Type Caster Name Role Phone Lynne Ramos MD Primary Care Provider Eileen Diaz MD Primary Care Provider [facility], Pcp Primary Care Provider Lynne Seaman MD Primary Care Provider Suzi Anthony PA-C Unavailable Unavailable Venancio Brown MD Unavailable [phone] Encounter Details Date Type Department Care Team Description 11/30/2019 Pt. Non Urgent Medical Question Pulmonology - [place] 175 [facility] [address] [place] [phone] Radha Ruiz MD [address] [place] [phone] Social History Tobacco Use Types Packs/Day Years [...] on filedocumented in this encounter Care Teams Type Caster Relationship Specialty Start Date End Date Lynne Ramos MD PCP - General Internal Medicine 03/23/16 05/03/20 Eileen Aleman MD PCP - General Internal Medicine 05/04/20 09/14/21 [facility], Pcp PCP - General Internal Medicine 09/15/21 01/05/22 Lynne Ramos MD PCP - General Internal Medicine 01/06/22 Suzi Kelly PA-C Specialist Internal Medicine 01/06/22 Venancio Brown MD [address] [place] [address] Specialist Cardiovascular Disease 01/06/22 documented as of this encounter
--- OUTSIDE RECORDS SUMMARY | 2024-06-04 11:45 | XMS_ITS | Encounter Summary ---
Author Organization [facility] Address [address] [place] [address] Care Team Providers Care Chief Design Branch Name Role Phone Lynne Ramos MD Primary Care Provider Eileen Diaz MD Primary Care Provider Spring cruz [facility], Pcp Primary Care Provider Lynne Seaman MD Primary Care Provider Suzi Anthony PA-C Unavailable Unavailable Venancio Brown MD Unavailable [phone] Encounter Details Date Type Department Care Team Description 09/12/2017 Refinery Superintendent Report Medical Records [address] [place] [address] Rosita Will MD Social History Tobacco Use [...] on filedocumented in this encounter Care Teams Chief Design Branch Relationship Specialty Start Date End Date Lynne Ramos MD PCP - General Internal Medicine 03/23/16 05/03/20 Eileen Aleman MD PCP - General Internal Medicine 05/04/20 09/14/21 [facility], [facility] PCP - General Internal Medicine 09/15/21 01/05/22 Lynne Ramos MD PCP - General Internal Medicine 01/06/22 Suzi Kelly PA-C Specialist Internal Medicine 01/06/22 Venancio Brown MD [address] [place] [address] Specialist Cardiovascular Disease 01/06/22 documented as of this encounter
--- OUTSIDE RECORDS SUMMARY | 2024-06-04 11:45 | XMS_ITS | Encounter Summary ---
Author Organization [facility] Address [address] [place] [address] Care Team Providers Care C2 Tactical Analysis Technician Name Role Phone Lynne Ramos MD Primary Care Provider Eileen Diaz MD Primary Care Provider [facility], Pcp Primary Care Provider Lynne Seaman MD Primary Care Provider Suzi Anthony PA-C Unavailable Unavailable Venancio Brown MD Unavailable Reason for Visit * Reason Onset Date Comments E-prescribe Rx Request 03/05/2019 Colestipo l HCl 1 g Tab Encounter Details Date Type Department Care Team Description 03/05/2019 Refill Gastroenterology - [address] [phone] Gary De Jesus MD [address] [place] [id number] E-prescribe Rx Request (Colestipol HCl 1 g Tab) Social History Tobacco Use Types Packs/Day Years [...] encounter Miscellaneous Notes * Telephone Encounter - Tia Rabia - 03/05/2019 1:19 PM EST Patient would like script to be: MAILED TO HOME ADDRESS WHEN WAS THE PATIENT'S LAST APPOINTMENT IN ADULT MEDICINE? 05/17/2018 WHEN WAS THE LAST TIME THE PATIENT SAW THEIR PCP? 02/20/2019 Does patient have an upcoming appointment? no (THE MEDICATION REQUESTED IS ON THE MED LIST ABOVE) All of the medications requested were on the CURRENT MEDS list Did you check the Pharmacy information above?: YES Patient wants: 90 -day supply Is this a mail order prescription request ? YES If the refill is from a FAXED refill request what is the RX # listed on the fax? N/A Patients current insurance carrier is: Payor: [employer] / Plan: POS $20/30 EL DENISE [id number] [facility] / Product Type: POS [id number] documented in this encounter Plan of Treatment Not on file documented as of this encounter Visit Diagnoses Not on filedocumented in this encounter Care Teams C2 Tactical Analysis Technician Relationship Specialty Start Date End Date Lynne Ramos MD PCP - General Internal Medicine 03/23/16 05/03/20 Eileen Aleman MD PCP - General Internal Medicine 05/04/20 09/14/21 [facility], Pcp PCP - General Internal Medicine 09/15/21 01/05/22 Lynne Ramos MD PCP - General Internal Medicine 01/06/22 Suzi Kelly PA-C Specialist Internal Medicine 01/06/22 Venancio Brown MD [address] [place] [address] Specialist Cardiovascular Disease 01/06/22 documented as of this encounter
--- OUTSIDE RECORDS SUMMARY | 2024-06-04 11:45 | XMS_ITS | Encounter Summary ---
Author Organization [facility] Address [address] [place] [address] Care Team Providers Care Cold Working Inspector Name Role Phone Lynne Ramos MD Primary Care Provider Eileen Diaz MD Primary Care Provider [facility], Pcp Primary Care Provider Lynne Seaman MD Primary Care Provider Suzi Anthony PA-C Unavailable Unavailable Venancio Brown MD Unavailable [phone] Reason for Visit * Reason Onset Date Comments Testing 02/02/2017 Encounter Details Date Type Department Care Team Description 02/02/2017 Telephone Radiology - [address] [address] Nilsa Luevano MD Testing Social History Tobacco [...] Miscellaneous Notes * Telephone Encounter - Jael Becerrao - 02/02/2017 5:47 PM EST FYI: Juan [...] on filedocumented in this encounter Care Teams Cold Working Inspector Relationship Specialty Start Date End Date Lynne Ramos MD PCP - General Internal Medicine 03/23/16 05/03/20 Eileen Aleman MD PCP - General Internal Medicine 05/04/20 09/14/21 [facility] PCP - General Internal Medicine 09/15/21 01/05/22 Lynne Ramos MD PCP - General Internal Medicine 01/06/22 Suzi Kelly PA-C Specialist Internal Medicine 01/06/22 Venancio Brown MD [address] [place] [address] Specialist Cardiovascular Disease 01/06/22 documented as of this encounter
--- OUTSIDE RECORDS SUMMARY | 2024-06-04 11:45 | XMS_ITS | Encounter Summary ---
Author Organization [facility] Address [address] [place] [address] Care Team Providers Care Research Kennel Supervisor Name Role Phone Lynne Ramos MD Primary Care Provider Eileen Diaz MD Primary Care Provider [facility], Pcp Primary Care Provider Lynne Seaman MD Primary Care Provider Suzi Anthony PA-C Unavailable Unavailable Venancio Brown MD Unavailable [phone] Encounter Details Date Type Department Care Team Description 04/06/2020 Charge Account Identification Clerk Report Medical Records [address] [place] [id number] Janie Harris, JUNITO Social History Tobacco Use [...] on filedocumented in this encounter Care Teams Research Kennel Supervisor Relationship Specialty Start Date End Date Lynne Ramos MD PCP - General Internal Medicine 03/23/16 05/03/20 Eileen Aleman MD PCP - General Internal Medicine 05/04/20 09/14/21 [facility], [facility] PCP - General Internal Medicine 09/15/21 01/05/22 Lynne Ramos MD PCP - General Internal Medicine 01/06/22 Suzi Kelly PA-C Specialist Internal Medicine 01/06/22 Venancio Brown MD [address] [place] [address] Specialist Cardiovascular Disease 01/06/22 documented as of this encounter
--- OUTSIDE RECORDS SUMMARY | 2024-06-04 11:45 | XMS_ITS | Encounter Summary ---
Author Organization [facility] Address [address] [place] [address] Care Team Providers Care Fruit Culler Name Role Phone Lynne Ramos MD Primary Care Provider Eileen Diaz MD Primary Care Provider [facility], Pcp Primary Care Provider Lynne Seaman MD Primary Care Provider Suzi Anthony PA-C Unavailable Unavailable Venancio Brown MD Unavailable [phone] Reason for Referral * EXTERNAL (Routine) - Authorized/Booked Specialty Diagnoses / Procedures Referred By Ender sultana Referred To Contact Neurology Procedures REFERRAL TO NEUROLOGY Lynne Ramos MD [address] [place] [id number] Rhina Mckenna MD Referral ID Status Reason Start Date Expiration Date V isits Requested Visits Authorized SEE NOTE Authorized/B ooked 02/17/2017 05/18/2017 1 1 Reason for Visit * Reason Onset Date Comments Instructor Of Education Feedback 02/17/2017 neurology Encounter Details Date Type Department Care Team Description 02/17/2017 [facility]Pediatrics [address] [phone] Lynne Ramos MD Instructor Of Education Feedback (neurology) Social History Tobacco Use Types Packs/Day Years [...] encounter Miscellaneous Notes * Telephone Encounter - Lynne Ramos MD - 02/17/2017 12:30 PM EST Ok thanks * Telephone Encounter - Claire Gonzalez - 02/17/2017 12:26 PM EST Lynne Jean An order was placed for patient to see for headaches and she has been scheduled for August 07 at 9 am. I talked to the patient and we discussed her seeing who scheduled in March right now so can be evaluated before she see sees in August. I have pended a new order, please review and sign Thank you, Claire Referrals Coordinator [facility] Referrals Department documented in this encounter Plan of Treatment Not on file documented as of this encounter Visit Diagnoses Not on filedocumented in this encounter Care Teams Fruit Culler Relationship Specialty Start Date End Date Lynne Ramos MD PCP - General Internal Medicine 03/23/16 05/03/20 Eileen Aleman MD PCP - General Internal Medicine 05/04/20 09/14/21 [facility], Pcp PCP - General Internal Medicine 09/15/21 01/05/22 Lynne Ramos MD PCP - General Internal Medicine 01/06/22 Suzi Kelly PA-C Specialist Internal Medicine 01/06/22 Venancio Brown MD [address] [place] [address] Specialist Cardiovascular Disease 01/06/22 documented as of this encounter
--- OUTSIDE RECORDS SUMMARY | 2024-06-04 11:45 | XMS_ITS | Encounter Summary ---
Author Organization [facility] Address [address] [place] [address] Care Team Providers Care Script Manager Name Role Phone Eileen Aleman MD Primary Care Provider Spring cruz [facility], Pcp Primary Care Provider UnavailLynne Barnes MD Primary Care Provider Unavaila Suzi Solorio PA-C Unavailable Unavailable Venancio Brown MD Unavailable [phone] Encounter Details Date Type Department Care Team Description 11/20/2020 [facility] Medical Records [address] [place] [id number] Abstract, Provider Social History Tobacco Use Types [...] on filedocumented in this encounter Care Teams Script Manager Relationship Specialty Start Date End Date Elieen Aleman MD PCP - General Internal Medicine 05/04/20 09/14/21 [facility], Pcp PCP - General Internal Medicine 09/15/21 01/05/22 Lynne Ramos MD PCP - General Internal Medicine 01/06/22 Suzi Kelly PA-C Specialist Internal Medicine 01/06/22 Venancio Brown MD [address] [address] Specialist Cardiovascular Disease 01/06/22 documented as of this encounter
--- OUTSIDE RECORDS SUMMARY | 2024-06-04 11:45 | XMS_ITS | Clinical Summary ---
Author Organization [facility] [address] [facility] Address [address] [place] [address] Phone Care Team Providers Care Supervisor Wool Shearing Name Role Phone Lynne Jean MD Primary Care Provider [phone] Allergies Active Allergy Reactions Criticality Noted Date Comments Sulfa (Sulfonamide Antibiotics) 03/23/2016 Other Reaction(s): Rash/Dermatitis Tramadol Headache,Nausea And Vomiting 03/23/2016 Venlafaxine Nausea And Vomiting 03/23/2016 Medications aspirin 81 mg EC tablet Take 1 tablet (81 mg total) by mouth 1 (one) time each day. 01/26/20 23 Active metoprolol succinate (TOPROL-XL) 25 mg 24 hr tablet Take 0.5 tablets (12.5 mg total) by mouth 1 (one) time each day. Active amLODIPine (NORVASC) 5 mg tablet Take 1 Tablet by mouth daily for 180 days. 01/08/20 22 Active gabapentin (NEURONTIN) 300 mg capsule TAKE 1 -2 CAPSULES BY MOUTH 3 TIMES A DAY FOR 30 DAYS 11/04/19 22 Active cyclobenzaprine (FLEXERIL) 10 mg tablet 11/02/19 22 Active oxyCODONE (ROXICODONE) 5 mg immediate release tablet Take 1 tablet (5 mg total) by mouth every 6 (six) hours if needed for moderate pain. 08/14/19 22 Active clotrimazole-betam ethasone (LOTRISONE) 1-0.05 % cream Apply topically as needed 08/07/19 22 Active montelukast (SINGULAIR) 10 mg tablet Take 1 tablet (10 mg total) by mouth at bedtime. 08/07/19 22 Active diazePAM (VALIUM) 5 mg tablet Take 1 Tablet by mouth every 8 hours as needed (muscle spasm). 08/03/19 22 Active albuterol HFA (PROAIR HFA ; PROVENTIL HFA ; VENTOLIN HFA) 90 mcg/actuation inhaler Inhale 2 Puffs into the lungs every 4 hours as needed for Cough, Wheezing or Shortness of Breath. 05/13/19 22 Active ondansetron (ZOFRAN) 4 mg tablet Take 1 tablet (4 mg total) by mouth every 8 (eight) hours if needed for nausea. 10/22/19 21 Active betamethasone valerate (VALISONE) 0.1 % ointment APPLY 1 G TO AFFECTED AREA DAILY NEEDED. 02/16/19 21 Active albuterol 2.5 mg /3 mL (0.083 %) nebulizer solution Take 1 Vial by nebulization every 4 hours as needed for Wheezing for up to 180 days. 05/06/19 20 Active loratadine (CLARITIN) 10 mg tablet Take 1 tablet (10 mg total) by mouth 1 (one) time each day. 05/26/19 19 Active reservoir inhalation (INSPIREASE) device Use as directed. 05/14/19 17 Active folic acid (FOLVITE) 1 mg tablet Take 1 tablet (1 mg total) by mouth 1 (one) time each day. Active ipratropium-albute roL (DUONEB) 0.5-2.5 mg/3 mL nebulizer solution Take [...] time each day with dinner. 51 tablet 02/23/19 25 Active norethindrone (MAKEDA,MARIA VICTORIA,HEAT HER,MICRONOR) 0.35 mg tabletIndications: Encounter for repeat prescription of oral contraceptives Take 1 tablet (0.35 mg total) by mouth 1 (one) time each day. 28 tablet 2 05/29/19 25 Active norethindrone (MAKEDA,MARIA VICTORIA,HEAT HER,MICRONOR) 0.35 mg tablet Take 1 tablet (0.35 mg total) by mouth 1 (one) time each day. 28 tablet 2 03/19/19 25 025 Discontin ued(Reord er) Active Problems Problem Noted Date Diagnosed Date Pulmonary embolism ([facility] V24, [facility] V28) Anxiety and depression 12/26/2023 DDD (degenerative disc disease), cervical 2023 Deficiency of vitamin B12 12/26/2023 Hypertension 12/26/2023 Uterine polyp 12/26/2023 Vitamin D deficiency 12/26/2023 Morbid obesity with BMI of 4 0.0-44.9, adult ([facility] V24, [facility] V28) 12/26/2023 Abnormal EKG 01/07/2022 Elevated blood pressure reading [...] (12/26/2023): LOUIE Headache, unspecified headache type 02/15/2017 Immunizations Name Administration Dates Next Due Influenza Quadravalent, MDCK , 0.5ml, with preservative (Flucelvax) 6mo and older 11/01/2016 Influenza trivalent, 0.5mL, preservative free (Fluarix; FluLaval; Fluzone) ages 6mo and older (Afluria) 3 years and older 11/23/2018 Tastemaker SARS-CoV-2 COVID-19, mRNA, LNP-S, preservative free 03/29/2021,02/18/2020,01/26/2020 [...] TONSILLECTOMY ADENOIDECTOMY, BILATERAL MYRINGOTOMY AND TUBES PROCEDURE: VT TONSILLECTOMY & ADENOIDECTOMY <AGE 12 BREAST REDUCTION 2000 PROCEDURE: VT BREAST REDUCTION CHOLECYSTECTOMY 08/17/2016 PROCEDURE: VT LAPAROSCOPY SURG CHOLECYSTECTOMY; COMMENT: Laparoscopic cholecystectomy; [place]; Dr. Matos OTHER SURGICAL HISTORY PROCEDURE: TOTAL DISC ARTHRP ANT APW/DISCECTOMY CRV 3+; COMMENT: 2017 OTHER SURGICAL HISTORY PROCEDURE: VT ANESTHESIA CERVICAL SPINE & CORD NOS Medical [...] 02/29/2024 11:11 AM EST Plan of Treatment Upcoming Encounters Date Type Department Care Team (Late st Contact Info) Description 08/22/2024 1:30 PM EDT Office Visit Obstetrics & Gynecology - [address] [phone] Daly Lobo, CNM [address] [place] [address] Health Maintenance Due Date Last Done Comments [...] 03/29/2021, 02/18/2020, Additional history exists Influenza Vaccine (Season Ended) 2024 11/18/2022, 11/23/2018, 11/01/2016 Hypertension/CHF/CAD Annual BMP Blood Test [...] age to complete this topic Meningococcal B Vaccine Aged Out No l onger eligible based on patient's age to complete this topic RSV Immunization Patients Under 20 months Aged Out No longer eligible based on patient's age to complete this topic Varicella Vaccines Aged Out No longer eligible based on patient's age to complete this topic Procedures Procedure Name Priority Date/Time Associated Diagnosis Comments BASIC METABOLIC PANEL STAT 02/29/2024 12:02 PM EST HM HPV Routine 08/26/2021 LIPID PANEL Routine 09/29/2020 from Last 3 Months or Most Recently Relevant to Health Maintenance Results * (ABNORMAL) Basic metabolic panel (02/29/2024 12:02 PM EST) Sodium 130(L) 133 - 145 mmol/L LAB CHEMISTRY METHOD 02/29/2024 1:46 PM EST [facility] Potassium 3.8 3.5 - 5.5 mmol/L LAB CHEMISTRY METHOD 02/29/2024 1:46 PM EST [facility] Chloride 94(L) 96 - 110 mmol/L LAB CHEMISTRY METHOD 02/29/2024 1:46 PM EST [facility] CO2 27 21 - 32 mmol/L LAB CHEMISTRY METHOD 02/29/2024 1:46 PM EST [facility] Anion Gap 9 3 - 11 LAB CHEMISTRY METHOD 02/29/2024 1:46 PM [facility] Glucose 153(H) 70 - 100 mg/dL LAB CHEMISTRY METHOD 02/29/2024 1:46 PM [facility] BUN 22 5 - 25 mg/dL LAB CHEMISTRY METHOD 02/29/2024 1:46 PM [facility] Creatinine 1.34(H) 0.50 - 1.10 mg/dL LAB CHEMISTRY METHOD 02/29/2024 1:46 PM [facility] eGFR 50(L) >=60 mL/min/1. 73m2 LAB CHEMISTRY METHOD 02/29/2024 1:46 PM [facility] Comment:Calculation based on the??Chronic Kidney Disease Epidemiology Collaboration (CKD-EPI) equation refit??without adjustment for race. BUN/Creatinine Ratio 16.4 LAB CHEMISTRY METHOD 02/29/2024 1:46 PM [facility] Calcium 10.0 8.5 - 10.5 mg/dL LAB CHEMISTRY METHOD 02/29/2024 1:46 PM [facility] Blood Venous blood specimen / Unknown Venipuncture / Unknown 02/29/2024 12:02 PM EST 02/29/2024 1:18 PM EST Vickey Sharma MD LAB BLOOD ORDERABLES Final Resu lt [facility] [address] [place] [address], * Cervical Cancer Screening: HPV (08/26/2021) Pathologist [facility] Cervical Cancer Screening: HPV abstracted, negative Zelalem Beck MD HEALTH MAINTENANCE Final Result * (ABNORMAL) Lipid panel (09/29/2020) LDL/HDL Ratio 3 0 - 4 Triglycerides 225(A) 0 - 150 mg/dL Cholesterol 154 0 - 200 mg/dL HDL 54 >=40 mg/dL LDL Cholesterol 55 0 - 100 mg/dL Blood Venous blood specimen / Unknown us Historical Provider LAB BLOOD ORDERABLES Yue sadler Result from Last 3 Months or Most [...] currently active code status orders. Care Teams Supervisor Wool Shearing Relationship Specialty Start Date End Date Lynne Jean MD [address] [place] [address] PCP - General Internal Medicine 05/28/24
--- OUTSIDE RECORDS SUMMARY | 2024-06-04 11:45 | XMS_ITS | Encounter Summary ---
Author Organization [facility] Address [address] [place] [address] Care Team Providers Care Residential Property Tax Appraiser Name Role Phone Lynne Ramos MD Primary Care Provider Suzi Anthony PA-C Unavailable Unavailable Venancio Brown MD Unavailable [phone] Encounter Details Date Type Department Care Team Description 01/10/2022 SCAN [facility] Medical [facility] Neurosurgery Elsie Chappell [address] [phone] Jimbo Galeano PA-C [address] [address] Social History Tobacco Use Types Packs/Day Years [...] on filedocumented in this encounter Care Teams Residential Property Tax Appraiser Relationship Specialty Start Date End Date Lynne Ramos MD PCP - General Internal Medicine 01/06/22 Suzi Kelly PA-C Specialist Internal Medicine 01/06/22 Venancio Brown MD [address] [place] [address] Specialist Cardiovascular Disease 01/06/22 documented as of this encounter
--- OUTSIDE RECORDS SUMMARY | 2024-06-04 11:45 | XMS_ITS | Encounter Summary ---
Author Organization [facility] Address [address] [place] [address] Care Team Providers Care Postal Support Employee Name Role Phone Lynne Ramos MD Primary Care Provider Eileen Diaz MD Primary Care Provider Spring cruz [facility], Pcp Primary Care Provider Lynne Seaman MD Primary Care Provider Suzi Anthony PA-C Unavailable Unavailable Venancio Brown MD Unavailable [phone] Encounter Details Date Type Department Care Team Description 01/11/2019 Orders Only Medicine/Pediatrics [address] [phone] Lynne Ramos MD Social History Tobacco Use [...] on filedocumented in this encounter Care Teams Postal Support Employee Relationship Specialty Start Date End Date Lynne Ramos MD PCP - General Internal Medicine 03/23/16 05/03/20 Eileen Aleman MD PCP - General Internal Medicine 05/04/20 09/14/21 [facility], Pcp PCP - General Internal Medicine 09/15/21 01/05/22 Lynne Ramos MD PCP - General Internal Medicine 01/06/22 Suzi Kelly PA-C Specialist Internal Medicine 01/06/22 Venancio Brown MD [address] [place] [address] Specialist Cardiovascular Disease 01/06/22 documented as of this encounter
--- OUTSIDE RECORDS SUMMARY | 2024-06-04 11:45 | XMS_ITS | Encounter Summary ---
Author Organization [facility] Address [address] [place] [address] Care Team Providers Care Warehouse Representative Name Role Phone Lynne Ramos MD Primary Care Provider Eileen Diaz MD Primary Care Provider [facility], Pcp Primary Care Provider Lynne Seaman MD Primary Care Provider Suzi Anthony PA-C Unavailable Unavailable Venancio Brown MD Unavailable [phone] Reason for Visit * Reason Onset Date Comments TEST RESULTS 12/02/2019 Encounter Details Date Type Department Care Team Description 12/02/2019 Telephone Pulmonology - [place] [address] [facility] [address] [place] [address] Radha Ruiz MD [address] [place] [address] TEST RESULTS Social History Tobacco Use Types Packs/Day Years [...] encounter Miscellaneous Notes * Telephone Encounter - Bell Dolan M.A. - 12/02/2019 2:00 PM EDT I have a question about BASIC NORTHEAST ALLERGY PANEL resulted on 11/25/19, 5:04 PM. Can you interpret the values for me please, such as the I and what this actually means * Telephone Encounter - Bell Dolan M.A. - 12/02/2019 1:59 PM EDT Regarding: Question regarding BASIC NORTHEAST ALLERGY PANEL Contact: ----- Message from TouchbaseMohinder sultana sent at 11/30/2019 6:38 PM EDT ----- I have a question about BASIC NORTHEAST ALLERGY PANEL resulted on 11/25/19, 5:04 PM. Can you interpret the values for me please, such as the I and what this actually means? Thank you JuanA documented in this encounter Plan of Treatment Not on file documented as of this encounter Visit Diagnoses Not on filedocumented in this encounter Care Teams Warehouse Representative Relationship Specialty Start Date End Date Lynne Ramos MD PCP - General Internal Medicine 03/23/16 05/03/20 Eileen Aleman MD PCP - General Internal Medicine 05/04/20 09/14/21 [facility], Pcp PCP - General Internal Medicine 09/15/21 01/05/22 Lynne Ramos MD PCP - General Internal Medicine 01/06/22 Suzi Kelly PA-C Specialist Internal Medicine 01/06/22 Venancio Brown MD [address] [place] [address] Specialist Cardiovascular Disease 01/06/22 documented as of this encounter
--- OUTSIDE RECORDS SUMMARY | 2024-06-04 11:45 | XMS_ITS | Encounter Summary ---
Author Organization [facility] Address [address] [place] [address] Care Team Providers Care Jumpbasting Lining Baster Name Role Phone Lynne Ramos MD Primary Care Provider Eileen Diaz MD Primary Care Provider [facility], Pcp Primary Care Provider Lynne Seaman MD Primary Care Provider Suzi Anthony PA-C Unavailable Unavailable Venancio Brown MD Unavailable [phone] Reason for Visit * Reason Onset Date Comments Medication 05/05/2016 looking for medi cation as discuss Encounter Details Date Type Department Care Team Description 05/05/2016 Telephone Medicine/Pediatrics [address] [phone] Yasmine Shah PA-C Medication (looking for medication [...] on filedocumented in this encounter Care Teams Jumpbasting Lining Baster Relationship Specialty Start Date End Date Lynne Ramos MD PCP - General Internal Medicine 03/23/16 05/03/20 Eileen Aleman MD PCP - General Internal Medicine 05/04/20 09/14/21 [facility], Pcp PCP - General Internal Medicine 09/15/21 01/05/22 Lynne Ramos MD PCP - General Internal Medicine 01/06/22 Suzi Kelly PA-C Specialist Internal Medicine 01/06/22 Venancio Brown MD [address] [place] [address] Specialist Cardiovascular Disease 01/06/22 documented as of this encounter
--- OUTSIDE RECORDS SUMMARY | 2024-06-04 11:45 | XMS_ITS | Encounter Summary ---
Author Organization [facility] Address [address] [place] [address] Care Team Providers Care Kapok Machine Operator Name Role Phone Eileen Aleman MD Primary Care Provider Spring cruz [facility], Pcp Primary Care Provider UnavailLynne Barnes MD Primary Care Provider Unavaila Suzi Solorio PA-C Unavailable Unavailable Venancio Brown MD Unavailable [phone] Encounter Details Date Type Department Care Team Description 02/04/2021 [facility] Medical Records [address] [place] [id number] Abstract, Provider Social History Tobacco Use Types [...] on filedocumented in this encounter Care Teams Kapok Machine Operator Relationship Specialty Start Date End Date Eileen Aleman MD PCP - General Internal Medicine 05/04/20 09/14/21 [facility], Pcp PCP - General Internal Medicine 09/15/21 01/05/22 Lynne Ramos MD PCP - General Internal Medicine 01/06/22 Suzi Kelly PA-C Specialist Internal Medicine 01/06/22 Venancio Brown MD [address] [address] Specialist Cardiovascular Disease 01/06/22 documented as of this encounter
--- OUTSIDE RECORDS SUMMARY | 2024-06-04 11:45 | XMS_ITS | Encounter Summary ---
Author Organization [facility] Address [address] [place] [address] Care Team Providers Care Die Engraver Name Role Phone Lynne Ramos MD Primary Care Provider Eileen Diaz MD Primary Care Provider [place] cruz [facility], Pcp Primary Care Provider UnavailLynne Barnes MD Primary Care Provider Suzi Anthony PA-C Unavailable Unavailable Venancio Brown MD Unavailable [phone] Encounter Details Date Type Department Care Team Description 05/25/2016 Transfer Records Medical Records [address] [place] [address] Abstract, Provider Social History Tobacco Use Types [...] on filedocumented in this encounter Care Teams Die Engraver Relationship Specialty Start Date End Date Lynne Ramos MD PCP - General Internal Medicine 03/23/16 05/03/20 Eileen Aleman MD PCP - General Internal Medicine 05/04/20 09/14/21 [facility], Pcp PCP - General Internal Medicine 09/15/21 01/05/22 Lynne Ramos MD PCP - General Internal Medicine 01/06/22 Suzi Kelly PA-C Specialist Internal Medicine 01/06/22 Venancio Brown MD [address] [place] [address] Specialist Cardiovascular Disease 01/06/22 documented as of this encounter
--- OUTSIDE RECORDS SUMMARY | 2024-06-04 11:45 | XMS_ITS | Encounter Summary ---
Author Organization [facility] Address [address] [place] [address] Care Team Providers Care Outside Sales Consultant Name Role Phone Community, Pcp Primary Care Provider Lynne Seaman MD Primary Care Provider Suzi Anthony PA-C Unavailable Unavailable Venancio Brown MD Unavailable [phone] Encounter Details Date Type Department Care Team Description 11/09/2021 SCAN [facility] Neurosurgery Alvarado Dierks [address] [phone] Jimbo Galeano PA-C [address] [address] Social History Tobacco Use Types Packs/Day Years [...] on filedocumented in this encounter Care Teams Outside Sales Consultant Relationship Specialty Start Date End Date Community, Pcp PCP - General Internal Medicine 09/15/21 01/05/22 Lynne Ramos MD PCP - General Internal Medicine 01/06/22 Suzi Kelly PA-C Specialist Internal Medicine 01/06/22 Venancio Brown MD [address] [address] Specialist Cardiovascular Disease 01/06/22 documented as of this encounter
--- OUTSIDE RECORDS SUMMARY | 2024-06-04 11:45 | XMS_ITS | Encounter Summary ---
Author Organization [facility] Address [address] [place] [address] Care Team Providers Care Technology Consultant Name Role Phone Lynne Ramos MD Primary Care Provider UnavailSuzi Guzman PA-C Unavailable Unavailable Venancio Brown MD Unavailable [phone] Encounter Details Date Type Department Care Team Description 01/07/2022 SCAN Medical Records [address] [place], [place] [phone] [place] [address] Social History Tobacco Use Types Packs/Day Years [...] on filedocumented in this encounter Care Teams Technology Consultant Relationship Specialty Start Date End Date Lynne Ramos MD PCP - General Internal Medicine 01/06/22 Suzi Kelly PA-C Specialist Internal Medicine 01/06/22 Venancio Brown MD [address] [place] [address] Specialist Cardiovascular Disease 01/06/22 documented as of this encounter
--- OUTSIDE RECORDS SUMMARY | 2024-06-04 11:45 | XMS_ITS | Encounter Summary ---
Author Organization [facility] Address [address] [place] [address] Care Team Providers Care Government Contracts Manager Name Role Phone Community, Pcp Primary Care Provider Lynne Seaman MD Primary Care Provider Suzi Anthony PA-C Unavailable Unavailable Venancio Brown MD Unavailable [phone] Encounter Details Date Type Department Care Team Description 11/09/2021 SCAN [facility] Medical [facility] Neurosurgery [place] [address] [phone] Jimbo Galeano PA-C [address] [address] Social History Tobacco Use Types Packs/Day Years [...] on filedocumented in this encounter Care Teams Government Contracts Manager Relationship Specialty Start Date End Date Community, Pcp PCP - General Internal Medicine 09/15/21 01/05/22 Lynne Ramos MD PCP - General Internal Medicine 01/06/22 Suzi Kelly PA-C Specialist Internal Medicine 01/06/22 Venancio Brown MD [address] [address] Specialist Cardiovascular Disease 01/06/22 documented as of this encounter
--- OUTSIDE RECORDS SUMMARY | 2024-06-04 11:45 | XMS_ITS | Encounter Summary ---
Author Organization [facility] Address [address] [place] [address] Care Team Providers Care Pit And Auxiliaries Supervisor Name Role Phone Lynne Ramos MD Primary Care Provider Suzi Anthony PA-C Unavailable Unavailable Venancio Brown MD Unavailable [phone] Reason for Visit * Reason Onset Date Comments Blood Pressure Elevated 01/11/2022 Encounter Details Date Type Department Care Team Description 01/11/2022 Telephone Cardio PVC [facility] [address] [facility] [address] [place] [phone] Venancio Brown MD [address] [place] [address] Blood Pressure Elevated Social History Tobacco Use [...] blockers in this setting though 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
--- OUTSIDE RECORDS SUMMARY | 2024-06-04 11:45 | XMS_ITS | Encounter Summary ---
Author Organization [facility] Address [address] [place] [address] Care Team Providers Care Cross Country Truck Driver Name Role Phone Lynne Ramos MD Primary Care Provider Eileen Diaz MD Primary Care Provider [facility], Pcp Primary Care Provider Lynne Seaman MD Primary Care Provider Suzi Anthony PA-C Unavailable Unavailable Venancio Brown MD Unavailable [phone] Encounter Details Date Type Department Care Team Description 09/03/2018 PNO Controlled Substance Contract Medical Records [address] [place] [id number] Abstract, Provider Social History Tobacco Use Types [...] on filedocumented in this encounter Care Teams Cross Country Truck Driver Relationship Specialty Start Date End Date Lynne Ramos MD PCP - General Internal Medicine 03/23/16 05/03/20 Eileen Aleman MD PCP - General Internal Medicine 05/04/20 09/14/21 [facility], [facility] PCP - General Internal Medicine 09/15/21 01/05/22 Lynne Ramos MD PCP - General Internal Medicine 01/06/22 Suzi Kelly PA-C Specialist Internal Medicine 01/06/22 Venancio Brown MD [address] [place] [address] Specialist Cardiovascular Disease 01/06/22 documented as of this encounter
--- OUTSIDE RECORDS SUMMARY | 2024-06-04 11:45 | XMS_ITS | Encounter Summary ---
Author Organization [facility] Address [address] [place] [address] Care Team Providers Care Remediation Technician Name Role Phone Community, Pcp Primary Care Provider Lynne Seaman MD Primary Care Provider Suzi Anthony PA-C Unavailable Unavailable Venancio Brown MD Unavailable [phone] Encounter Details Date Type Department Care Team Description 11/09/[address] [facility] [place] [address] [id number] Jimbo Galeano PA-C [address] [address] Social History Tobacco Use Types Packs/Day Years [...] on filedocumented in this encounter Care Teams Remediation Technician Relationship Specialty Start Date End Date Community, Pcp PCP - General Internal Medicine 09/15/21 01/05/22 Lynne Ramos MD PCP - General Internal Medicine 01/06/22 Suzi Kelly PA-C Specialist Internal Medicine 01/06/22 Venancio Brown MD [address] [address] Specialist Cardiovascular Disease 01/06/22 documented as of this encounter
--- OUTSIDE RECORDS SUMMARY | 2024-06-04 11:45 | XMS_ITS | Encounter Summary ---
Author Organization [facility] Address [address] [place] [address] Care Team Providers Care Lining Brusher Name Role Phone Lynne Ramos MD Primary Care Provider Eileen Diaz MD Primary Care Provider [facility], Pcp Primary Care Provider Lynne Seaman MD Primary Care Provider Suzi Anthony PA-C Unavailable Unavailable Venancio Brown MD Unavailable [phone] Encounter Details Date Type Department Care Team Description 11/22/2018 Controlled Substance Plan Medical Records [address] [place] [address] Abstract, Provider Social History Tobacco Use Types [...] filedocumented in this encounter Care Teams Lining Brusher Relationship Specialty Start Date End Date Lynne Ramos MD PCP - General Internal Medicine 03/23/16 05/03/20 Eileen Aleman MD PCP - General Internal Medicine 05/04/20 09/14/21 [facility] PCP - General Internal Medicine 09/15/21 01/05/22 Lynne Ramos MD PCP - General Internal Medicine 01/06/22 Suzi Kelly PA-C Specialist Internal Medicine 01/06/22 Venancio Brown MD [address] [place] [address] Specialist Cardiovascular Disease 01/06/22 documented as of this encounter
--- OUTSIDE RECORDS SUMMARY | 2024-06-04 11:45 | XMS_ITS | Encounter Summary ---
Author Organization [facility] Address [address] [place] [address] Care Team Providers Care Server Assistant Name Role Phone Lynne Ramos MD Primary Care Provider Eileen Diaz MD Primary Care Provider [facility], Pcp Primary Care Provider Lynne Seaman MD Primary Care Provider Suzi Anthony PA-C Unavailable Unavailable Venancio Brown MD Unavailable [phone] Encounter Details Date Type Department Care Team Description 02/12/2019 Orders Only Medicine/Pediatrics - [address] [address] Lynne Ramos MD Left flank pain (Primary [...] Lynne Ramos MD ULTRASOUND Performing Organization Address [facility] Co de Phone Number HERO PETERS OTHER EXTERNAL * URINE, CULTURE (02/12/2019 12:43 PM EST) Urine (Urine) 02/12/2019 12: 43 PM EST 02/12/2019 12:43 PM EST Narrative ROSA ARGUELLO - 02/13/2019 9:32 AM EST No growth Lynne Ramos MD LAB Performing Organization Address [facility] [address] [facility] Co de Phone Number [facility] MEDIQiandao documented in this encounter Visit Diagnoses Diagnosis Left flank pain- Primary Abdominal pain, unspecified site Left flank pain Abdominal pain, unspecified site documented in this encounter Care Teams Server Assistant Relationship Specialty Start Date End Date Lynne Ramos MD PCP - General Internal Medicine 03/23/16 05/03/20 Eileen Aleman MD PCP - General Internal Medicine 05/04/20 09/14/21 [facility], Pcp PCP - General Internal Medicine 09/15/21 01/05/22 Lynne Ramos MD PCP - General Internal Medicine 01/06/22 Suzi Kelly PA-C Specialist Internal Medicine 01/06/22 Venancio Brown MD 300 [facility] [address] [place] [address] Specialist Cardiovascular Disease 01/06/22 documented as of this encounter
--- OUTSIDE RECORDS SUMMARY | 2024-06-04 11:45 | XMS_ITS | Encounter Summary ---
Author Organization [facility] Address [address] [place] [address] Care Team Providers Care Commercial Loan Collection Officer Name Role Phone Lynne Ramos MD Primary Care Provider UnavailSuzi Guzman PA-C Unavailable Unavailable Venancio Brown MD Unavailable [phone] Encounter Details Date Type Department Care Team Description 01/07/2022 Release of Information Medical Records [address] [place] [id number] [place] [address] Social History Tobacco Use Types Packs/Day Years [...] on filedocumented in this encounter Care Teams Commercial Loan Collection Officer Relationship Specialty Start Date End Date Lynne Ramos MD PCP - General Internal Medicine 01/06/22 Suzi Kelly PA-C Specialist Internal Medicine 01/06/22 Venancio Brown MD [address] [place] [address] Specialist Cardiovascular Disease 01/06/22 documented as of this encounter
--- OUTSIDE RECORDS SUMMARY | 2024-06-04 11:46 | XMS_ITS | Encounter Summary ---
Author Organization [facility] Address [address] [place] [address] Care Team Providers Care Convex Grinder Operator Name Role Phone Lynne Ramos MD Primary Care Provider Suzi Anthony PA-C Unavailable Unavailable Venancio Brown MD Unavailable [phone] Encounter Details Date Type Department Care Team Description 03/02/2022 [facility] 175 [facility] [address] [place] [address] Jimenez Sinclair MD 175 [facility] [address] [place], [place] [id number] Social History Tobacco Use Types Packs/Day Years [...] on filedocumented in this encounter Care Teams Convex Grinder Operator Relationship Specialty Start Date End Date Lynne Ramos MD PCP - General Internal Medicine 01/06/22 Suzi Kelly PA-C Specialist Internal Medicine 01/06/22 Venancio Brown MD [address] [place] [address] Specialist Cardiovascular Disease 01/06/22 documented as of this encounter
--- OUTSIDE RECORDS SUMMARY | 2024-06-04 11:46 | XMS_ITS | Clinical Summary ---
Author Organization [facility] Address [address] [place] [address] Care Team Providers Care Legal Investigator Name Role Phone Lynne Ramos MD Primary Care Provider Suzi Anthony PA-C Unavailable Unavailable Venancio Brown MD Unavailable [phone] Allergies Active Allergy Reactions Severity Noted Date [...] Immunizations Name Administration Dates Next Due COVID-19 ([employer]) Pt Reported 03/29/2021, 021,01/26/2020 Hepatitis M-Dvmbh-Yfvhpxzd + 08/23/2011 Influenza (> 6 Months) 11/23/2018 Influenza Vaccine-quadrivalent 4 Years Plus 10/08 Oikuhxb-Bzwgl-Eniprsyf + 08/23/2011 Gldoj-Lbwgh-Gtkqvjpt + 08/23/2011 Quantiferon Tb Gold Neg 05/24/2017 Lvymxsm-Bxavx-Jfgypkro + 08/23/2011 TD (STATE SUPPLIED FOR ADULTS [...] 2022-2 4 season) 2023 03/29/2021, 02/18/2020, 01/26/2020 BMI CHECK/ADVISE 02/07/2024 08/26/2021, , 09/29/2020, Additional history exists INFLUENZA (Season Ended) 2024 11/23/2018, 10/08 CHOLESTEROL SCREENING 09/29/2025 09/29/2020 , 08/21/2020, 06/12/2020, Additional history exists CERVICAL CANCER SCREENING 08/26/2026 08/26/2021, DTAP/TDAP/TD (4 - Td or Tdap) 10/21/2029, 07/16/2018, 08/23/2011 Insurance Payer Benefit Plan / Group Subscriber ID Effective Dates Phone Address Type AETNA POS $20/30 RUPERTO MACIEL [id number] THNE TRADITNAL [id number] 2018-Prese nt [address] [place] [phone] POS Eus-xuf-Sact ice MEDICAID-M A MEDICAID-IN [id number] 2022-Pres ent [place] [address] [place] [address] MEDICAID [id number] ICE Care Teams Legal Investigator Relationship Specialty Start Date End Date Lynne Ramos MD PCP - General Internal Medicine 01/06/22 Suzi Kelly PA-C Specialist Internal Medicine 01/06/22 Venancio Brown MD [address] [place] [address] Specialist Cardiovascular Disease 01/06/22
--- OUTSIDE RECORDS SUMMARY | 2024-06-04 11:46 | XMS_ITS | Encounter Summary ---
Author Organization [facility] Address [address] [place] [address] Care Team Providers Care Guide Tour Name Role Phone Lynne Ramos MD Primary Care Provider Suzi Anthony PA-C Unavailable Unavailable Venancio Brown MD Unavailable [phone] Encounter Details Date Type Department Care Team Description 06/14/2022 Refill Gastroenterology - [place] 175 [facility] [address] [place] [phone] Gary De Jesus MD [address] [place] [address] Social History Tobacco Use Types Packs/Day Years [...] on filedocumented in this encounter Care Teams Guide Tour Relationship Specialty Start Date End Date Lynne Ramos MD PCP - General Internal Medicine 01/06/22 Suzi Kelly PA-C Specialist Internal Medicine 01/06/22 Venancio Brown MD [address] [place] [address] Specialist Cardiovascular Disease 01/06/22 documented as of this encounter
--- OUTSIDE RECORDS SUMMARY | 2024-06-04 11:46 | XMS_ITS | Encounter Summary ---
Author Organization [facility] Address [address] [place] [address] Care Team Providers Care Windows Vmware Administrator Name Role Phone Eileen Aleman MD Primary Care Provider [facility], Pcp Primary Care Provider Lynne Seaman MD Primary Care Provider Suzi Anthony PA-C Unavailable Unavailable Venancio Brown MD Unavailable [phone] Encounter Details Date Type Department Care Team Description 10/08/2020 Refill Medicine/Pediatrics - [address] [phone] Ary Norris PA-C [address] [place] [address] Social History Tobacco Use Types Packs/Day Years [...] 10 MG TABLET 20.0 5 KA O'M [id number] [facility] (7657[facility] 0/0 60.0 MME Comm Ins [place] 09/04/2020 1 09/03/2020 OXYCODONE HCL 5 MG TABLET 118.0 20 EL ARM [id number] [facility] (7657) 0/0 44.25 MME Comm Ins [place] 08/14/2020 1 08/13/2020 OXYCODONE HCL 5 MG TABLET 118.0 19 RE MOR [id number] [facility] (7657) 0/0 46.58 MME Comm Ins [place] 08/14/2020 1 08/13/2020 DIAZEPAM 5 MG TABLET 84.0 28 RE MOR [id number] [facility] (7657) 0/0 [place] Ins [place] 07/24/2020 1 07/24/2020 LORAZEPAM 0.5 MG TABLET 10.0 7 RE MOR [id number] [facility] (7657) 0/0 [place] Ins [place] 07/15/2020 1 07/14/2020 OXYCODONE HCL 5 MG TABLET 118.0 20 CH MIL [id number] [facility] (7657) 0/0 44.25 MME Comm Ins [place] 06/15/2020 1 06/12/2020 OXYCODONE HCL 5 MG TABLET 112.0 19 CH MIL [id number] [facility] (7657) 0/0 44.21 MME Comm Ins [place] 06/12/2020 1 06/12/2020 DIAZEPAM 5 MG TABLET 84.0 28 CH MIL [id number] [facility] (7657) 0/0 [place] Ins [place] 05/08/2020 2 05/08/2020 OXYCODONE HCL 5 MG TABLET 112.0 19 TE SVA [id number] [facility] (7657) 0/0 44.21 MME Comm Ins [place] 04/18/2020 2 04/17/2020 OXYCODONE HCL 5 MG TABLET 70.0 12 SA O'S [id number] [facility] (7657) 0/0 43.75 MMEComm Ins [place] 04/17/2020 2 04/17/2020 DIAZEPAM 5 MG TABLET 84.0 28 SA O'S [id number] [facility] (7657) 0/0 Comm Ins [place] documented in this encounter Plan of Treatment Not on file documented as of this encounter Visit Diagnoses Diagnosis DDD (degenerative disc disease), cervical Degeneration of cervical intervertebral disc documented in this encounter Care Teams Windows Vmware Administrator Relationship Specialty Start Date End Date Eileen Aleman MD PCP - General Internal Medicine 05/04/20 09/14/21 [facility], Pcp PCP - General Internal Medicine 09/15/21 01/05/22 Lynne Ramos MD PCP - General Internal Medicine 01/06/22 Suzi Kelly PA-C Specialist Internal Medicine 01/06/22 Venancio Brown MD [address] [place] [address] Specialist Cardiovascular Disease 01/06/22 documented as of this encounter
--- OUTSIDE RECORDS SUMMARY | 2024-06-04 11:46 | XMS_ITS | Encounter Summary ---
Author Organization [facility] Address [address] [place] [address] Care Team Providers Care Profiler Operator Name Role Phone Lynne Ramos MD Primary Care Provider Eileen Diaz MD Primary Care Provider [facility], Pcp Primary Care Provider Lynne Seaman MD Primary Care Provider Suzi Anthony PA-C Unavailable Unavailable Venancio Brown MD Unavailable [phone] Reason for Visit * Reason Onset Date Comments Prior Authorization 03/27/2019 Encounter Details Date Type Department Care Team Description 03/27/2019 Telephone Medicine/Pediatrics - [address] [address] Lynne Ramos MD Prior Authorization Social History [...] Telephone Encounter - Nilsa Maharaj M.A. - 03/28/2019 3:02 PM EST Prior authorization for the oxycodone 5 mg was approved Approved from 03/28/19 until 09/26/2019 Approval faxed to [facility] at [phone] * Telephone Encounter - Nilsa Maharaj M.A. - 03/28/2019 10:36 AM EST Prior authorization completed on cover my meds today for the oxycodone 5 mg Bin [id number] Pcn [employer] ID [id number] ID # [id number] Dx code M50.30 DDD (degenerative disc disease), cervical Continuation of therapy 08/23/2016 Neck pain, She had a discectomy and fusion of C3-[address] Will * Telephone Encounter - Blanca Guerrero - 03/27/2019 10:26 AM EST Prior Authorization for Medication-do not complete and send this encounter unless you have the fax from the pharmacy. Is this a Cover My Meds request: [place] of Medication oxycodone (ROXICODONE) 5 MG immediate release tablet Dose of Medication 5 MG immediate release tablet What is the RX # from the faxed refill? [id number] How does patient take this med? Take 1-2 tab oral every 8 hours as needed What Pharmacy did the fax come from: call from [facility] fax #: [phone] [employer] Information from fax: What Prescription Plan does the patient have? [facility]ium RX [id number] BIN/PCN if applicable: BIN [id number] PCN IRX GROUp XMORX Cardholder ID:[id number] Person Code: 00 Relationship Code: 01 Help desk phone: [phone] documented in this encounter Plan of Treatment Not on file documented as of this encounter Visit Diagnoses Not on filedocumented in this encounter Care Teams Profiler Operator Relationship Specialty Start Date End Date Lynne Ramos MD PCP - General Internal Medicine 03/23/16 05/03/20 Eileen Aleman MD PCP - General Internal Medicine 05/04/20 09/14/21 [facility], Pcp PCP - General Internal Medicine 09/15/21 01/05/22 Lynne aRmos MD PCP - General Internal Medicine 01/06/22 Suzi Kelly PA-C Specialist Internal Medicine 01/06/22 Venancio Brown MD [address] [address] Specialist Cardiovascular Disease 01/06/22 documented as of this encounter
--- OUTSIDE RECORDS SUMMARY | 2024-06-04 11:46 | XMS_ITS | Encounter Summary ---
Author Organization [facility] Address [address] [place] [address] Care Team Providers Care Green Chain Puller Name Role Phone Eileen Aleman MD Primary Care Provider [facility], Pcp Primary Care Provider Lynne Seaman MD Primary Care Provider Suzi Anthony PA-C Unavailable Unavailable Venancio Brown MD Unavailable [phone] Reason for Visit * Reason Comments E-prescribe Rx Request Encounter Details Date Type Department Care Team Description 09/13/2020 Refill General Surgery - [place] 175 [facility] [address] [place] [address] Marian Britton MD 175 [facility] [place] [address] [place] [address] E-prescribe Rx Request Social History Tobacco [...] on filedocumented in this encounter Care Teams Green Chain Puller Relationship Specialty Start Date End Date Eileen Aleman MD PCP - General Internal Medicine 05/04/20 09/14/21 [facility] Pcp PCP - General Internal Medicine 09/15/21 01/05/22 Lynne Ramos MD PCP - General Internal Medicine 01/06/22 Suzi Kelly PA-C Specialist Internal Medicine 01/06/22 Venancio Brown MD [address] [place] [address] Specialist Cardiovascular Disease 01/06/22 documented as of this encounter
== END 2024-06-04 10:37 | disposition home or self-care (01) ==
LOC: HO.HMCFM 10:17
PROVIDERS: PCP Internal Medicine; Visit Provider Internal Medicine
DX: G47.33 Obstructive sleep apnea (adult) (pediatric) (principal); E66.01 Morbid (severe) obesity due to excess calories; I10 Essential (primary) hypertension

== ENCOUNTER 2024-06-06 10:45 | Outpatient (REF) | payer OTHER, SELFPAY ==
--- NOTE | ~2024-06-06 | CT_ITS ---
EXAMINATION: CT CHEST ANGIOGRAPHY WITH IV CONTRAST INDICATION: I26.94 - Multiple subsegmental thrombotic pulmonary emboli without acute... COMPARISON: Comparison is made with the prior examination from [facility] dated 02/29/2024. TECHNIQUE: Helical CT scan of the chest was performed following administration of intravenous contrast (65 mL Omnipaque 350). The contrast bolus was timed to optimally opacify the pulmonary arteries. Thin sections were obtained through the pulmonary arteries. Coronal and sagittal reformatted images were generated. 3D/MIP reconstructed images are also obtained and reviewed. This CT exam was performed with one or more of the following dose reduction techniques: automated exposure control, adjustment of the mA and/or kV according to patient size, use of iterative reconstruction technique. DLP: 179 mGy-cm CHEST: THYROID: The thyroid gland is unremarkable. PULMONARY ARTERIES: No intraluminal filling defects are identified within the pulmonary arteries to suggest pulmonary emboli. LUNGS: There is mild dependent atelectasis bilaterally. The lungs are otherwise clear. MEDIASTINUM: There is no mediastinal lymphadenopathy. BELA: There is no hilar lymphadenopathy. CARDIOVASCULATURE: The heart is enlarged. There is no pericardial effusion. The thoracic aorta is normal in caliber. DEGREE OF CORONARY CALCIFICATION: not evaluable, due to dense contrast material in the coronary arteries. PLEURA: There is no pleural effusion. No pneumothorax. MAIN AIRWAYS: The mainstem bronchi and proximal branches are patent. AXILLA: There is no axillary lymphadenopathy. UPPER ABDOMEN: The visualized portions of the liver, spleen, and adrenals are unremarkable. BONES AND SOFT TISSUES: Unremarkable. CT/CT angio chest PE protocol IMPRESSION: No evidence of pulmonary emboli. Cardiomegaly. Electronically signed by: Efren Bermudez MD 06/06/2024 11:23 AM EDT
[2024-06-06] MEDS: iohexoL 350 MG/ML 100 ML INFUS..BTL IV (11:02)
--- OUTSIDE RECORDS SUMMARY | 2024-06-06 12:20 | XMS_ITS | Patient Health Record ---
Author Organization [facility] Address [address] [facility] [address] [place] [address] Care Team Providers Care Senior Strategy Analyst Name Role Phone Lynne Jean Primary Care [...] Orally flora ry 12hrs as needed Active Dafhqaoeot-SKEZ-Pesknaao 50-325-40 MG 1 tablet as needed Orally [...] Problem Status W/U Status Risk Notes Problem [id number] Equinus deformity of right foot (M21.6X1) Active confirmed Problem [id number] Equinus deformity of left foot (M21.6X2) Active [...] Date Coverage End Date AETNA [address] [address] [place] [address] [id number] Juan A Ferreira Self - patient is [...]
--- OUTSIDE RECORDS SUMMARY | 2024-06-06 12:20 | XMS_ITS | Clinical Summary ---
Author Organization [facility] [address] [facility] Address [address] [place] [address] Phone Care Team Providers Care Can Piler Name Role Phone Lynne Jean MD Primary Care Provider [phone] Allergies Active Allergy Reactions Criticality Noted Date [...] Problem Noted Date Diagnosed Date Pulmonary embolism ([facility] V24, [facility] V28) Anxiety and depression 12/26/2023 DDD (degenerative disc disease), cervical 2023 Deficiency of vitamin B12 12/26/2023 Hypertension 12/26/2023 Uterine polyp 12/26/2023 Vitamin D deficiency 12/26/2023 Morbid obesity with BMI of 4 0.0-44.9, adult ([facility] V24, [facility] V28) 12/26/2023 Abnormal EKG 01/07/2022 Elevated blood [...] older (Afluria) 3 years and older 11/23/2018 [employer] SARS-CoV-2 COVID-19, mRNA, LNP-S, preservative free 03/29/2021,02/18/2020,01/26/2020 [...] TONSILLECTOMY ADENOIDECTOMY, BILATERAL MYRINGOTOMY AND TUBES PROCEDURE: IA TONSILLECTOMY & ADENOIDECTOMY <AGE 12 BREAST REDUCTION 2000 PROCEDURE: [place] BREAST REDUCTION CHOLECYSTECTOMY 08/17/2016 PROCEDURE: [place] LAPAROSCOPY SURG CHOLECYSTECTOMY; COMMENT: Laparoscopic cholecystectomy; [place]; Dr. Matos OTHER SURGICAL HISTORY PROCEDURE: TOTAL DISC ARTHRP ANT APW/DISCECTOMY CRV 3+; COMMENT: 2017 OTHER SURGICAL HISTORY PROCEDURE: [place] ANESTHESIA CERVICAL SPINE & CORD NOS Medical [...] EDT Office Visit Obstetrics & Gynecology - [address] [phone] Daly Lobo, CNM [address] [place] [address] Health Maintenance Due Date Last Done Comments [...] LAB CHEMISTRY METHOD 02/29/2024 1:[address] [facility] Potassium 3.8 3.5 - 5.5 mmol/L LAB CHEMISTRY METHOD 02/29/2024 1:[address] [facility] Chloride 94(L) 96 - 110 mmol/L LAB CHEMISTRY METHOD 02/29/2024 1:[address] [facility] CO2 27 21 - 32 mmol/L LAB CHEMISTRY METHOD 02/29/2024 1:[address] [facility] Anion Gap 9 3 - 11 LAB CHEMISTRY METHOD 02/29/2024 1:[address] [facility] Glucose 153(H) 70 - 100 mg/dL LAB CHEMISTRY METHOD 02/29/2024 1:[address] [facility] BUN 22 5 - 25 mg/dL LAB CHEMISTRY METHOD 02/29/2024 1:[address] [facility] Creatinine 1.34(H) 0.50 - 1.10 mg/dL LAB CHEMISTRY METHOD 02/29/2024 1:[address] [facility] eGFR 50(L) >=60 mL/min/1. 73m2 LAB CHEMISTRY METHOD 02/29/2024 1:[address] [facility] Comment:Calculation based on the??Chronic Kidney Disease Epidemiology Collaboration (CKD-EPI) equation refit??without adjustment for race. BUN/Creatinine Ratio 16.4 LAB CHEMISTRY METHOD 02/29/2024 1:[address] [facility] Calcium 10.0 8.5 - 10.5 mg/dL LAB CHEMISTRY METHOD 02/29/2024 1:[address] [facility] Blood Venous blood specimen / Unknown Venipuncture / Unknown 02/29/2024 12:02 PM EST 02/29/2024 1:18 PM EST Vickey Sharma MD LAB BLOOD ORDERABLES Final Resu lt [facility] [address] [place] [address], * Cervical Cancer Screening: HPV (08/26/2021) Pathologist [facility] Cervical Cancer Screening: HPV abstracted, negative [place] [...] currently active code status orders. Care Teams Can Piler Relationship Specialty Start Date End Date Lynne Jean MD [address] [place] [address] PCP - General Internal Medicine 05/28/24
== END 2024-06-06 10:46 | disposition home or self-care (01) ==
LOC: HO.CT 10:45
PROVIDERS: PCP Internal Medicine; Visit Provider Hospitalist
DX: I26.94 Multiple subsegmental thrombotic pulmonary emboli without acute cor pulmonale (principal); J18.9 Pneumonia, unspecified organism
CPT/HCPCS: 71275; Q9967

== ENCOUNTER → 2024-06-06 10:47 | Outpatient (BNV) | payer OTHER, SELFPAY | PROVIDERS: PCP Internal Medicine; Visit Provider Radiology Diagnostic Radiology | DX: I51.7 Cardiomegaly (principal) | CPT/HCPCS: 71275 ==

== ENCOUNTER 2024-06-17 14:16 | Outpatient (AMB) | payer OTHER, SELFPAY ==
--- NOTE | 2024-06-17 14:18 | MHC.OFFVIS ---
Vital Signs 06/17/24 14:19 Height 5 ft 4 in Weight 292 lb 1.8 oz BMI 50.1 BP 150/84 H Blood Pressure Location Lt brachial Position Sitting Pulse 76 Pulse Source Pulse Oximeter Pulse Oximetry (%) 99 Oxygen Delivery Method Room Air Intake Visit Reasons: Pulmonary Embolism/Asthma, CT FU Sleeping Car Conductor Required: No Accompanied by: Self / Same As Patient Allergies omeprazole Allergy (Mild, Verified 06/17/24 14:21) Rash Sulfa (Sulfonamide Antibiotics) Allergy (Unknown, Verified 06/17/24 14:21) Rash tramadol Allergy (Unknown, Verified 06/17/24 14:21) Rash venlafaxine [From Effexor] Allergy (Unknown, Verified 06/17/24 14:21) Rash HPI Comments Details: The patient is a 49 year woman with a known history of asthma who apparently was in her usual state health until sometime in January which started developing worsening respiratory complaints. She that she was having flu-like symptoms. Ultimately symptoms worsen. She started developing pleuritic chest discomfort. she had an evaluation in an x-ray sometime beginning of 02/26/2024 which I personally reviewed with some haziness in the right hemithorax but no overt airspace disease. Ultimately she developed worsening symptoms and she ended up going to the [facility] ER. There she did undergo a CTA demonstrating bilateral segmental and subsegmental PEs in addition to bilateral airspace disease and consolidations. She was admitted to the hospital placed on Xarelto and we given antibiotics overall she feels better from the respiratory complaints she was having. She did follow-up with Hematology and had a full hypercoagulable workup and she will be doing that soon. in addition to that an echocardiogram has been ordered. The patient understands and Xarelto will not be resolving the clots and that usually takes around 6-8 weeks to completely resolve. Therefore some point will have to follow-up with a repeat CT scan. The patient in the meantime having daytime drowsiness. Her Ridgway score is elevated 11/24. Based on her significant lower extremity edema and cardiovascular risk factors we will go ahead and request a sleep study. During the visit we also underwent a 6 minute walk test the patient did well although she was tachycardic oxygen was stable 99% which is reassuring. During the exam she did have some wheezing on examination at this point will going to optimize her respiratory therapy. I do believe Trelegy is a good option for her but it was too expensive so we went ahead and start her on Wixela. 04/12/2024 the patient is here for a pulmonary follow-up visit. Since we last spoke the patient was exposed to RSV in her family. Then after she started developing worsening cough shortness breath chest tightness and now increased mucus production. Moderate severity. Having hard time sleeping. Has a raspy voice. Her sputum is greenish in color. We were able to get a sputum sample and send it to the laboratory. She does have wheezing on examination. She does not feel good. She continues in the anticoagulation. 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 She does have 2 daughters. One of her daughters does take estrogen for control and I did advise her to consider stopping her estrogen while she waits till we get tested. In the meantime she does have rhonchi wheezing on exam. May have I postviral bacterial lower respiratory infection. Will treated for pneumonia at this time. Will give her doxycycline Vantin she will need some prednisone. Although with her significant wheezing will give her Solu-Medrol today. The patient did have a CT scan last back in February the diagnosed with pulmonary emboli. She is going to bring a copy to download. She also had airspace disease. Will plan to repeat a CT scan in 4-6 weeks to address her thromboembolic disease and also the airspace disease. 04/25/2024 the patient is here for a pulmonary sick visit. She still not 100%. She had called because she was still feeling under the weather and center another course of prednisone 60 mg with taper and also a course of azithromycin. She is down to 50 mg of prednisone at this time. She is starting to feel better. We did check her oxygen again walking and she did well. Her exam significantly better without any significant wheezing or rhonchi or crackles. Although she still diminished. She will continue to stay out of work this week and then hopefully go to work starting Monday. She did bring a copy of her CT scan that she had when she had the PEs. The patient will also undergo a repeat CT scan sometime in June to follow up the resolution of the clots. She continues use her respiratory therapy with good effect. I do hope that she does a little better. Because of all the prednisone she is having hard time sleeping. Therefore she can use Ambien as needed for sleep. 06/17/2024 the patient is here for a pulmonary follow-up visit. Overall she is feeling better finally. The patient had been sick for several months. She is still having raspiness of the voice but she is significantly better. She has been noticing though increasing shortness of breath and lower extremity edema. She also had an elevated blood pressure. She did have increased salt intake over the weekend specially for mother's day weekend. She is going to take additional Lasix when she goes home. I did advise her for her to take up to 3 days. She continues on the Xarelto. We did look at her CT scan that she has had recently. It appears that all the pulmonary emboli have resolved. Although, she understands that she needs to stay on the blood thinner. The Xarelto is very expensive for her and does not only issue with it. She does not have any minor major bleeding with it. She is going to follow-up with her branch sales manager. She does have a genetic distribution for clotting therefore I do recommend she stay on some anticoagulation. After the duration of therapy she can consider prophylactic Xarelto if that is a possibility for her. She will talk to the branch sales manager. The patient also had an echocardiogram which is reassuring except for some diastolic dysfunction and some septal hypertrophy. We did talk about the importance of controlling the double product in order to minimize further hypertrophy of her muscle. Her CT scan also demonstrated increased cardiac size cardiomegaly most likely due to that. The patient did not have her sleep study. She continues to have significant sleep apnea with an elevated Ridgway score. She has a reschedule it. She understands all these cardiovascular conditions are either worsen or results of the untreated sleep apnea. [facility] Medical History Pneumonia Asthma Vitamin D deficiency Right shoulder pain Non-infective diarrhea Mixed anxiety and depressive disorder Mild persistent asthma Hyperlipidemia Headache Cyst of nasopharynx Cobalamin deficiency Cervical radiculopathy Cerebral arterial aneurysm Body mass index 40.0-44.9, adult ADHD Family History Other FH: mental illness Social History Household Members: Family Housing: House Alcohol intake: former Patient Tobacco Use Status: Former Tobacco user Cigarette Packs Per Day: 1 Years Smoked: 5 e-Cigarette/Vaping Use: Never Used Current occupational status: employed 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 Current occupational exposures/hazards: No Gender identity: Female Cognitive needs: No Hearing needs: No Vision needs: No Review of Systems Const Denies chills, Reports daytime sleepiness, Reports difficulty sleeping, Denies fatigue, Denies fever(s) and Reports snoring Eyes Reports no additional complaints ENT Denies dizziness Card Denies chest pain, Reports leg edema, Denies lightheadedness, Denies palpitations, Reports dyspnea on exertion, Denies orthopnea and Denies other Resp Reports cough, Reports dyspnea on exertion, Reports snoring and Denies wheezing GI Denies hematochezia and Denies change in stool character Musc Denies abnormal gait, Denies muscle weakness, Denies numbness, Denies radiating pain into limb and Denies tingling Skin/Breast Denies rash Neuro Denies abnormal gait, Denies dizziness, Denies numbness and Denies tingling Endo Denies fatigue and Denies palpitations Amish/Lymph Reports no additional complaints Aller/Immun Denies wheezing Physical Exam Vital Signs: Last Vital Signs Pulse 76 06/17/24 14:19 BP 150/84 H 06/17/24 14:19 Pulse Ox 99 06/17/24 14:19 Oxygen Delivery Method Room Air 06/17/24 14:19 BMI result Body Mass Index 50.1 Const General: comfortable HEENT Head: Yes normocephalic Neck Neck: Yes supple Chest Chest palpation & inspection: normal inspection of the chest Resp Effort & Inspection: normal respiratory effort Auscultation: diminished lung sounds Cardio Heart sounds: S1 normal heart sound present and S2 normal heart sound present GI Palpation (GI): Soft to palpation Skin General skin exam: no rashes or lesions noted Extrem General: No clubbing, No cyanosis and Yes edema Assessment & Plan Assessment & Plan (1) Pulmonary embolism: Code(s): I26.99 - Other pulmonary embolism without acute cor pulmonale Category: Medical Qualifiers: Pulmonary embolism type: multiple subsegmental (without acute cor pulmonale) Qualified Code(s): I26.94 - Multiple subsegmental thrombotic pulmonary emboli without acute cor pulmonale (2) Shortness of breath: Code(s): R06.02 - Shortness of breath Category: Medical (3) Asthma: Code(s): J45.909 - Unspecified asthma, uncomplicated Category: Medical Qualifiers: Asthma complication type: uncomplicated Asthma persistence: persistent Asthma severity: moderate Qualified Code(s): J45.40 - Moderate persistent asthma, uncomplicated (4) ROGELIO (obstructive sleep apnea): Code(s): G47.33 - Obstructive sleep apnea (adult) (pediatric) Category: Medical (5) Pneumonia: Code(s): J18.9 - Pneumonia, unspecified organism Category: Medical Qualifiers: Laterality: bilateral Lung location: unspecified part of lung Pneumonia type: due to unspecified organism Qualified Code(s): J18.9 - Pneumonia, unspecified organism Plan Wixela ROMEO as needed continue Xorelto. Home PSG CTA in 2 months. Need a copy of her previous CTA to compare ambien for sleep F/U 8-12 weeks Coding Level of Care Code Est Pt Level 4 (91844) Complex EM visit Add On G2211 Diagnoses Multiple subsegmental pulmonary emboli without acute cor pulmonale I26.94 Pulmonary embolism type: multiple subsegmental (without acute cor pulmonale) Shortness of breath R06.02 Moderate persistent asthma without complication J45.40 Asthma complication type: uncomplicated Asthma persistence: persistent Asthma severity: moderate ROGELIO (obstructive sleep apnea) G47.33 Pneumonia of both lungs due to infectious organism, unspecified part of lung J18.9 Laterality: bilateral Lung location: unspecified part of lung Pneumonia type: due to unspecified organism Time Spent (min) 17
[2024-06-17 14:19] VITALS: BP 150/84; PULSE 76; O2SAT 99; BMI 50.1
--- OUTSIDE RECORDS SUMMARY | 2024-06-17 14:29 | XMS_ITS | Clinical Summary ---
Author Organization [facility] [address] [facility] Address [address] [place] [address] Phone Care Team Providers Care Still Operator Helper Name Role Phone Lynne Jean MD Primary Care Provider [phone] Allergies Active Allergy Reactions Criticality Noted Date [...] Problem Noted Date Diagnosed Date Pulmonary embolism ([facility] V24, [facility] V28) Anxiety and depression 12/26/2023 DDD (degenerative disc disease), cervical 2023 Deficiency of vitamin B12 12/26/2023 Hypertension 12/26/2023 Uterine polyp 12/26/2023 Vitamin D deficiency 12/26/2023 Morbid obesity with BMI of 4 0.0-44.9, adult ([facility] V24, [facility] V28) 12/26/2023 Abnormal EKG 01/07/2022 Elevated blood [...] patient's history, symptoms may be related to [place]'s for which she is undergoing a work-up [...] older (Afluria) 3 years and older 11/23/2018 [employer] SARS-CoV-2 COVID-19, mRNA, LNP-S, preservative free 03/29/2021,02/18/2020,01/26/2020 [...] TONSILLECTOMY ADENOIDECTOMY, BILATERAL MYRINGOTOMY AND TUBES PROCEDURE: MT TONSILLECTOMY & ADENOIDECTOMY <AGE 12 BREAST REDUCTION 2000 PROCEDURE: [place] BREAST REDUCTION CHOLECYSTECTOMY 08/17/2016 PROCEDURE: MT LAPAROSCOPY SURG CHOLECYSTECTOMY; COMMENT: Laparoscopic cholecystectomy; [place]; Dr. Matos OTHER SURGICAL HISTORY PROCEDURE: TOTAL DISC ARTHRP ANT APW/DISCECTOMY CRV 3+; COMMENT: 2017 OTHER SURGICAL HISTORY PROCEDURE: [place] ANESTHESIA CERVICAL SPINE & CORD NOS Medical [...] EDT Office Visit Obstetrics & Gynecology - [address] [id number] Daly Lobo, CNM [address] [place] [address] Health Maintenance Due Date Last Done Comments [...] LAB CHEMISTRY METHOD 02/29/2024 1:46 PM EST [facility] Potassium 3.8 3.5 - 5.5 mmol/L LAB CHEMISTRY METHOD 02/29/2024 1:46 PM EST [facility] Chloride 94(L) 96 - 110 mmol/L LAB CHEMISTRY METHOD 02/29/2024 1:46 PM EST [facility] CO2 27 21 - 32 mmol/L LAB CHEMISTRY METHOD 02/29/2024 1:46 PM EST [facility] Anion Gap 9 3 - 11 LAB CHEMISTRY METHOD 02/29/2024 1:46 PM [facility] Glucose 153(H) 70 - 100 mg/dL LAB CHEMISTRY METHOD 02/29/2024 1:46 PM [facility] BUN 22 5 - 25 mg/dL LAB CHEMISTRY METHOD 02/29/2024 1:46 PM [facility] Creatinine 1.34(H) 0.50 - 1.10 mg/dL LAB CHEMISTRY METHOD 02/29/2024 1:46 PM [facility] eGFR 50(L) >=60 mL/min/1. 73m2 LAB CHEMISTRY METHOD 02/29/2024 1:46 PM [facility] Comment:Calculation based on the??Chronic Kidney Disease Epidemiology Collaboration (CKD-EPI) equation refit??without adjustment for race. BUN/Creatinine Ratio 16.4 LAB CHEMISTRY METHOD 02/29/2024 1:46 PM [facility] Calcium 10.0 8.5 - 10.5 mg/dL LAB CHEMISTRY METHOD 02/29/2024 1:46 PM [facility] Blood Venous blood specimen / Unknown Venipuncture / Unknown 02/29/2024 12:02 PM EST 02/29/2024 1:18 PM EST Vickey Sharma MD LAB BLOOD ORDERABLES Final Resu lt [facility] [address] [place] [address], * Cervical Cancer Screening: HPV (08/26/2021) Pathologist [facility] Cervical Cancer Screening: HPV abstracted, negative [place] [...] currently active code status orders. Care Teams Still Operator Helper Relationship Specialty Start Date End Date Lynne Jean MD [address] [place] [phone] PCP - General Internal Medicine 05/28/24
--- OUTSIDE RECORDS SUMMARY | 2024-06-17 14:29 | XMS_ITS | Patient Health Record ---
Author Organization [facility] Address [address] [facility] [address] [place] [address] Care Team Providers Care Development Advisor Name Role Phone Lynne Jean Primary [...] Orally flora ry 12hrs as needed Active Syyxxauani-JMXL-Qzueprqv 50-325-40 MG 1 tablet as needed Orally [...] Problem Status W/U Status Risk Notes Problem [id number] Equinus deformity of right foot (M21.6X1) Active confirmed Problem [id number] Equinus deformity of left foot (M21.6X2) Active [...] Date Coverage End Date [employer] [address] [address] [place] [address] [id number] Juan A Ferreira Self - patient is [...] ctomy and fusion 2006 Laparoscopy, cholecystectomy 08/17/16 [place] Breast Reduction 2000 Remove tonsils adenoids, under 12 Total disc Arthrp Ant Apw/Discectomy CRV 2017
== END 2024-06-17 14:44 | disposition home or self-care (01) ==
LOC: HO.HPS 14:16
PROVIDERS: PCP Internal Medicine; Visit Provider Hospitalist
DX: I26.94 Multiple subsegmental thrombotic pulmonary emboli without acute cor pulmonale (principal); R06.02 Shortness of breath; J45.40 Moderate persistent asthma, uncomplicated; G47.33 Obstructive sleep apnea (adult) (pediatric); J18.9 Pneumonia, unspecified organism
CPT/HCPCS: 99214; G2211

== ENCOUNTER → 2024-06-17 14:16 | Outpatient (BNVA) | payer OTHER, SELFPAY | PROVIDERS: PCP Internal Medicine; Visit Provider Hospitalist ==

== ENCOUNTER 2024-07-18 10:04 | Outpatient (AMB) | payer OTHER, SELFPAY ==
--- NOTE | 2024-07-18 10:36 | A.OFFVIS_ITS ---
Vital Signs 07/18/24 10:45 Height 5 ft 4 in Weight 285 lb 11.505 oz BMI 49.0 BP 132/80 Blood Pressure Location Rt brachial Position Sitting Pulse 73 Pulse Source Pulse Oximeter Pulse Oximetry (%) 97 Oxygen Delivery Method Room Air Intake Visit Reasons: Edema/New Patient Intake Note: Patient presents for Edema/Polymyalgia. Patient c/o of pain on her neck, both shoulder, both wrist, both hands, fingers, lower back, both hips, both ankles, both feet and LT toes. These symptoms started 2 - 3 years ago. Oxycodone for chronic pain. Allergies omeprazole Allergy (Mild, Verified 07/18/24 10:44) Rash Sulfa (Sulfonamide Antibiotics) Allergy (Unknown, Verified 07/18/24 10:44) Rash tramadol Allergy (Unknown, Verified 07/18/24 10:44) Rash venlafaxine [From Effexor] Allergy (Unknown, Verified 07/18/24 10:44) Rash Medication List - Last Reconciled 07/18/24 by Natasha Simmons MD albuterol sulfate 90 mcg/actuation 2 puffs inhalation Q6H PRN albuterol sulfate 2.5 mg (3 mL) inhalation Q4-6H PRN alprazolam 1 mg orally every 12 hours PRN; anxiety. Not to be taken within 6 hours of valium 30 days aspirin 81 mg PO DAILY benzonatate 200 mg PO BID PRN 30 days bupropion HCl SR (Wellbutrin SR) 200 mg PO BID codeine-guaifenesin 10-100 mg/5 mL 10 mL PO Q6H PRN 10 days cyanocobalamin (vitamin B-12) 1,000 mcg subcut Q4W 12 weeks dextromethorphan-guaifenesin 60-1,200 mg ER 1 tab PO Q12H 14 days diazepam (Valium) 5 mg PO BID PRN famotidine 20 mg PO BID fluoxetine 40 mg PO DAILY fluticasone propion-salmeterol 500-50 mcg/dose (Wixela Inhub) 1 inh inhalation BID 30 days folic acid 1 mg PO DAILY furosemide 20 mg PO Q OTHER DAY ipratropium-albuterol 0.5 mg-3 mg(2.5 mg base)/3 mL 3 mL inhalation Q8H PRN loratadine (Allergy Relief (loratadine)) 10 mg PO DAILY losartan 25 mg PO DAILY metoprolol succinate ER 12.5 mg (1/2 x 25 mg) PO DAILY norethindrone (contraceptive) 0.35 mg PO DAILY ondansetron 4 mg PO Q8H PRN oxycodone 5 - 10 mg (1 - 2 x 5 mg) PO Q6H PRN 28 days pregabalin (Lyrica) 75 mg PO BID rivaroxaban (Xarelto) 20 mg PO QPM spironolactone 25 mg PO QAM spironolactone 50 mg PO BID syringe with needle (BD SafetyGlide Syringe) Use for b12 injection subcutaneous once weekly tirzepatide (Mounjaro) 2.5 mg (0.5 mL) subcut QWEEK HPI Comments Details: Patient is a 49-year-old female with anxiety/depression, reactive airway diseas e, hypertension, cerebral aneurysm, and 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 Patient has a longstanding history of C-spine abnormalities including anterior fusion of C3-C4 and disc spacer C4-C5 (2005 & 2018) Also complains of low back pain. Notes that it has been on going but has noted worsening for the past 2-3 months. Notes worsening with activity such as walking or exercising. Worse at the end of the day. Has back pain that wakes her up in the middle of the night Associated with 30-45 mins of AM stiffness Other joints - shoulders - hips. L>R - Feet. Mostly the left. Hx of left plantar fascia tears. But pain is noted most on the top of the foot - Hands/Wrists. Get sore . No pain everyday. tiredness/fatigue . Mostly at the end of the day. Sometimes they swell. Currently on furosemide for leg swelling. Family history: Sister - MS, Mast cell disease, Multiple myeloma Mother - Sjogrens +1 (6-7 weeks miscarriage) History of PE after hospitalization. 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 [facility] Medical History Pneumonia Asthma Vitamin D deficiency Right shoulder pain Non-infective diarrhea Mixed anxiety and depressive disorder Mild persistent asthma Hyperlipidemia Headache Cyst of nasopharynx Cobalamin deficiency Cervical radiculopathy Cerebral arterial aneurysm Body mass index 40.0-44.9, adult ADHD Family History (Updated 07/18/24 @ 10:45 by YANY Johnson) Father Rheumatoid arthritis Other FH: mental illness Social History Household Members: Family Housing: House Alcohol intake: former Patient Tobacco Use Status: Former Tobacco user Cigarette Packs Per Day: 1 Years Smoked: 5 e-Cigarette/Vaping Use: Never Used Current occupational status: employed 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 Current occupational exposures/hazards: No Gender identity: Female Cognitive needs: No Hearing needs: No Vision needs: No Review of Systems Const Details: Review of Systems Constitutional: Denies fever, chills, weight loss ENT: Denies vision changes, eye pain or eye redness, dental caries, dry mouth GI: Denies nausea, vomiting, diarrhea, abdominal pain, change in BM Pulm: Denies hemoptysis Cards: Denies chest pain, palpitations Skin: Denies rash, nail changes, photosensitivity, COFFEE SOMMELIER: Denies headaches, weakness, paresthesias, recurrent falls MSK: as per HPI All other systems reviewed and are unremarkable except noted above Physical Exam Vital Signs: Last Vital Signs Pulse 73 07/18/24 10:45 BP 132/80 07/18/24 10:45 Pulse Ox 97 07/18/24 10:45 Oxygen Delivery Method Room Air 07/18/24 10:45 BMI result Body Mass Index 49.0 Vital signs reviewed Physical Examination CONSTITUITIONAL Patient alert and cooperative. Well appearing and in no apparent painful distress HEENT Conjunctiva and sclera clear. ?No lymphadenopathy. ? CHEST/RESPIRATORY SYSTEM Normal respiratory effort and able to speak in complete sentences. ?Clear to auscultation bilaterally. ?No crackles, rales, rhonchi, wheezes heard. CARDIAC SYSTEM Regular rate and rhythm. ?S1 and S2 heard no murmurs. ?Radial pulses intact bilaterally MSK Hands: ?Able to make a fist. No synovitis noted to the MCPs, PIPs or DIPs. ?Scattered TTP of the MCPs and PIPs, but no obvious synovitis Wrists: ?Full range of motion at the wrists without pain. ?No tenderness to palpation or synovitis noted to the wrists. Elbows: Full range of motion without pain. No tenderness, weakness, swelling, increased warmth or erythema. Shoulders: Full range of active range of motion without pain. No tenderness, weakness, swelling, increased warmth or erythema. Hips: Full range of motion without pain. Hip bursa: Bilateral TTP of the hip bursa Knees: ?Full range of motion. ?No tenderness, swelling, increased warmth or erythema.?No effusion or crepitations Ankles: Full range of motion. ?No tenderness, swelling, increased warmth or erythema.? Feet: ?Positive squeeze test bilaterally. TTP of the MTPs bilaterally Tender points:?No tenderness to palpation of the bilateral trapezius, supraspinatus, greater trochanters, anterior costochondral junctions, bilateral gluteal areas, bilateral suboccipital muscle insertions SKIN Skin intact without rashes. Results Reviewed Results Reviewed: Laboratory Tests 02/13/24 07/12/24 14:17 13:05 WBC 7.9 RBC 4.47 Hgb 13.1 Hct 39.4 Plt Count 365 ESR 16 Sodium 140 Potassium 4.1 Chloride 105 Carbon Dioxide 29 BUN 11 Creatinine 0.95 AST 48 H ALT 78 H Laboratory Tests 08/25/23 02/13/24 09:56 14:17 DALE Screen NEGATIVE Proteinase 3 (PR3) Ab <1.0 Myeloperoxidase Ab <1.0 Thyroid Peroxidase Ab <1 HLA-B27 Positive A Assessment & Plan Assessment & Plan (1) Polyarthralgia: Code(s): M25.50 - Pain in unspecified joint Plan: #Polyarthralgias Patient is a 49-year-old female here today for evaluation of polyarthralgias in the setting of a positive HLA B27 test. At this time it is not very clear if she truly has an underlying inflammatory arthritis. She did have an elevated CRP which I saw on her [facility] portal but she was admitted to the hospital at that time and so the elevated inflammatory markers could be related to the hospitalization. I think it is worth doing further workup and fine objective evidence of inflammatory arthritis. Plan - XRs hands, wrists, SI joints, feet - labs: CBC, CMP, ESR, CRP, CCP, RF, DALE, CHANNING panel, complement, hepatitis, T spot - RTC after results Plan I spent 46 minutes reviewing the record and labs, taking a history, examining the patient, discussing the treatment plan, ordering diagnostic work up and documenting in the medical record Orders: Orders XR hand RT min 3V Today M45.9 - Ankylosing spondylitis of unspecified sites in spine XR wrist LT min 3V Today M45.9 - Ankylosing spondylitis of unspecified sites in spine DALE Reflex Titer and Pattern Today M25.50 - Pain in unspecified joint Anti DNA DS Antibody Today M25.50 - Pain in unspecified joint Complement C3 Today M25.50 - Pain in unspecified joint Complement C4 Today M25.50 - Pain in unspecified joint Comprehensive Met. Panel Today M25.50 - Pain in unspecified joint Sjogren's Antibodies Today M25.50 - Pain in unspecified joint T Spot TB Today M25.50 - Pain in unspecified joint Cyclic Citrullinated Peptide Today M25.50 - Pain in unspecified joint XR hand LT min 3V Today M45.9 - Ankylosing spondylitis of unspecified sites in spine XR wrist RT min 3V Today M45.9 - Ankylosing spondylitis of unspecified sites in spine XR foot RT min 3V Today M45.9 - Ankylosing spondylitis of unspecified sites in spine XR foot LT min 3V Today M45.9 - Ankylosing spondylitis of unspecified sites in spine XR sacroiliac joint min 3V Today M45.9 - Ankylosing spondylitis of unspecified sites in spine Sm Sm/SURGICAL SALES REPRESENTATIVE Antibodies Today M25.50 - Pain in unspecified joint Complete Blood Count Auto Diff Today M25.50 - Pain in unspecified joint C Reactive Protein Today M25.50 - Pain in unspecified joint Erythrocyte Sedimentation Rate Today M25.50 - Pain in unspecified joint Hepatitis A,B,C Profile Today M25.50 - Pain in unspecified joint Scleroderma 70 Antibody Today M25.50 - Pain in unspecified joint Rheumatoid Factor Today M25.50 - Pain in unspecified joint Coding Level of Care Code New Pt Level 5 (32771) Diagnoses Polyarthralgia M25.50
[2024-07-18 10:45] VITALS: BP 132/80; PULSE 73; O2SAT 97; BMI 49.0
--- OUTSIDE RECORDS SUMMARY | 2024-07-18 11:31 | XMS_ITS | Encounter Summary ---
Author Organization [facility] Address [address] [place] [address] Care Team Providers Care Mva Operator Name Role Phone Eileen Aleman MD Primary Care Provider [facility], Pcp Primary Care Provider Lynne Seaman MD Primary Care Provider Suzi Anthony PA-C Unavailable Unavailable Venancio Brown MD Unavailable [phone] Encounter Details Date Type Department Care Team Description 06/21/2021 Pt. Non Urgent Medical Question [facility] [address] [place] [id number] Edson Adam PA-C [address] [place] [id number] Social History Tobacco Use Types Packs/Day Years [...] on filedocumented in this encounter Care Teams Mva Operator Relationship Specialty Start Date End Date Eileen Aleman MD PCP - General Internal Medicine 05/04/20 09/14/21 [facility], Pcp PCP - General Internal Medicine 09/15/21 01/05/22 Lynne Ramos MD PCP - General Internal Medicine 01/06/22 Suzi Kelly PA-C Specialist Internal Medicine 01/06/22 Venancio Brown MD [address] [place] [id number] Specialist Cardiovascular Disease 01/06/22 documented as of this encounter
== END 2024-07-18 11:46 | disposition home or self-care (01) ==
LOC: HO.RHE 10:05
PROVIDERS: PCP Internal Medicine; Visit Provider Student in an Organized Health Care Education/Training Program
DX: M25.50 Pain in unspecified joint (principal)
CPT/HCPCS: 99204

== ENCOUNTER 2024-07-30 11:28 | Outpatient (AMB) | payer OTHER, SELFPAY ==
[2024-07-30 11:33] VITALS: BP 120/72; PULSE 74; O2SAT 96; BMI 49.8
--- NOTE | 2024-07-30 11:33 | MHC.OFFVIS ---
Vital Signs 07/30/24 11:33 Height 5 ft 4 in Weight 289 lb 14.526 oz BMI 49.8 BP 120/72 Blood Pressure Location Lt brachial Position Sitting Pulse 74 Pulse Source Pulse Oximeter Pulse Oximetry (%) 96 Oxygen Delivery Method Room Air Intake Visit Reasons: Ongoing cough no better. Intake Note: pt is here for a sick visit (Dr. Gramajo) she states she has a cough since January when she had pneumonia, in June with Dr Gramajo she was moving air, but today raspy is back , cough is still very junky, but she feels fine, but coughing causing her to be winded, very thick yellow green, never clear. Automotive Starter Repairer Required: No Allergies omeprazole Allergy (Mild, Verified 07/30/24 12:07) Rash Sulfa (Sulfonamide Antibiotics) Allergy (Unknown, Verified 07/30/24 12:07) Rash tramadol Allergy (Unknown, Verified 07/30/24 12:07) Rash venlafaxine (From Effexor) Allergy (Unknown, Verified 07/30/24 12:07) Rash Medication List - Last Reconciled 07/30/24 by Mario Cam MD albuterol sulfate 90 mcg/actuation 2 puffs inhalation Q6H PRN albuterol sulfate 2.5 mg (3 mL) inhalation Q4-6H PRN alprazolam 1 mg orally every 12 hours PRN; anxiety. Not to be taken within 6 hours of valium 30 days aspirin 81 mg PO DAILY benzonatate 200 mg PO BID PRN 30 days bupropion HCl SR (Wellbutrin SR) 200 mg PO BID clotrimazole-betamethasone 1-0.05 % 1 appl topical BID 4 weeks codeine-guaifenesin 10-100 mg/5 mL 10 mL PO Q6H PRN 10 days cyanocobalamin (vitamin B-12) 1,000 mcg subcut Q4W 12 weeks dextromethorphan-guaifenesin 60-1,200 mg ER 1 tab PO Q12H 14 days diazepam (Valium) 5 mg PO BID PRN famotidine 20 mg PO BID fluoxetine 40 mg PO DAILY fluticasone propion-salmeterol 500-50 mcg/dose (Wixela Inhub) 1 inh inhalation BID 30 days folic acid 1 mg PO DAILY furosemide 20 mg PO Q OTHER DAY ipratropium-albuterol 0.5 mg-3 mg(2.5 mg base)/3 mL 3 mL inhalation Q8H PRN loratadine (Allergy Relief (loratadine)) 10 mg PO DAILY losartan 25 mg PO DAILY metoprolol succinate ER 12.5 mg (1/2 x 25 mg) PO DAILY norethindrone (contraceptive) 0.35 mg PO DAILY ondansetron 4 mg PO Q8H PRN oxycodone 5 - 10 mg (1 - 2 x 5 mg) PO Q6H PRN 28 days rivaroxaban (Xarelto) 20 mg PO QPM spironolactone 50 mg PO BID syringe with needle (BD SafetyGlide Syringe) Use for b12 injection subcutaneous once weekly tirzepatide (Mounjaro) 2.5 mg (0.5 mL) subcut QWEEK tirzepatide (weight loss) (Zepbound) 2.5 mg subcut QWEEK Do you need a note to return to daycare/school/sports/work: No HPI HPI Ongoing cough no better.: Details: This patient is 49 years old female a regular patient of Dr. Dago Gramajo, is being seen for an emergency visit today because of severe persistent cough, for the last few weeks. .Her daugherty is husky She coughs because she gets irritation in the throat, There is not much expectoration. After bouts of cough she does get somewhat wheezy, and exhausted. She has had no fever or chills. She had a recent CTA of the chest which was negative for pulmonary embolism, and negative for any intrinsic lung disease, but some atelectasis of the basilar areas. She is a case of morbid obesity, supposed to have a sleep apnea test which she has been postponing. She is nonsmoker, but her daughter does smoke in her own room. Current pulmonary medications include fluticasone-salmeterol 500-51 inhalation b.i.d., and ipratropium-albuterol solution in the nebulizer to be used Q 6-8 hours p.r.n. She is also on loratadine 10 mg daily, and has used cough medicine Robitussin DM 1 tbsp Q 12 hours [facility] Medical History (Updated 07/30/24 @ 12:19 by Mario Cam MD) Restrictive lung disease Tracheobronchitis Pneumonia Asthma Vitamin D deficiency Right shoulder pain Non-infective diarrhea Mixed anxiety and depressive disorder Mild persistent asthma Hyperlipidemia Headache Cyst of nasopharynx Cobalamin deficiency Cervical radiculopathy Cerebral arterial aneurysm Body mass index 40.0-44.9, adult ADHD Family History Father Rheumatoid arthritis Other FH: mental illness Social History Household Members: Family Housing: House Alcohol intake: former Patient Tobacco Use Status: Former Tobacco user Cigarette Packs Per Day: 1 Years Smoked: 5 e-Cigarette/Vaping Use: Never Used Current occupational status: employed 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 Current occupational exposures/hazards: No Gender identity: Female Cognitive needs: No Hearing needs: No Vision needs: No Review of Systems Const Denies chills, Reports daytime sleepiness, Reports difficulty sleeping, Denies fatigue, Denies fever(s) and Reports snoring Eyes Reports no additional complaints ENT Denies dizziness Card Denies chest pain, Reports leg edema, Denies lightheadedness, Denies palpitations, Reports dyspnea on exertion, Denies orthopnea and Denies other Resp Reports cough, Reports dyspnea on exertion, Reports snoring and Denies wheezing GI Denies hematochezia and Denies change in stool character Musc Denies abnormal gait, Denies muscle weakness, Denies numbness, Denies radiating pain into limb and Denies tingling Skin/Breast Denies rash Neuro Denies abnormal gait, Denies dizziness, Denies numbness and Denies tingling Endo Denies fatigue and Denies palpitations Amish/Lymph Reports no additional complaints Aller/Immun Denies wheezing Physical Exam Vital Signs: Last Vital Signs Pulse 74 07/30/24 11:33 BP 120/72 07/30/24 11:33 Pulse Ox 96 07/30/24 11:33 Oxygen Delivery Method Room Air 07/30/24 11:33 BMI result Body Mass Index 49.8 Const General: comfortable HEENT Head: Yes normocephalic Mouth: oropharynx abnormals (There is slight redness of the posterior pharyngeal wall) and muffled voice Neck Neck: Yes supple Chest Chest palpation & inspection: normal inspection of the chest, normal palpation of entire chest wall and no tenderness Resp Other: He has cough with every deep breath. Breath sounds are distant on both sides, but no wheezes or rhonchi are heard. Effort & Inspection: normal respiratory effort Auscultation: diminished lung sounds Cardio Heart sounds: S1 normal heart sound present and S2 normal heart sound present GI Palpation (GI): Soft to palpation Skin General skin exam: no rashes or lesions noted Extrem General: No clubbing, No cyanosis and Yes edema Assessment & Plan Assessment & Plan (1) Tracheobronchitis: Comment: I think this patient's cough is secondary to irritation/ infection of the upper airways . Clinically I think she has tracheobronchitis. May have low-grade thrush . Code(s): J40 - Bronchitis, not specified as acute or chronic Category: Medical Plan: Advised to DEMETRIO Cardoso at this time. Continue to use ipratropium-albuterol solution in the nebulizer 3 times a day. Gargle the throat with warm water and salt 3 times a day. Empirically started on nystatin swishes 3 times a day for 10 days Also a course of doxycycline 100 b.i.d. for 10 days She should be re-evaluated after 2-3 weeks . (2) Cough: Comment: Her cough is of barking type, seems to be due to inflammation/infection in the upper airways. Code(s): R05.9 - Cough, unspecified Category: Medical Plan: As under tracheobronchitis, she may use guaifenesin with DM 2 tsp t.i.d. p.r.n. to suppress cough (3) Restrictive lung disease: Comment: Patient is morbidly obese and clinically I think she has significant restrictive lung disease. Code(s): J98.4 - Other disorders of lung Category: Medical Plan: She needs to work on weight reduction, Currently on Zepbound injections Q every week I told her that she has strong possibility of obstructive sleep apnea, and she should schedule home-based sleep study as soon as possible Medications: New doxycycline hyclate 100 mg PO BID 20 tabs 0RF tracheo bronchitis 10 days nystatin swish and swallow 5 mL PO TID 150 mL 0RF Oral Thrush 10 days Coding Level of Care Code Est Pt Level 3 (15631) Diagnoses Tracheobronchitis J40 Cough R05.9 Restrictive lung disease J98.4
== END 2024-07-30 12:11 | disposition home or self-care (01) ==
LOC: HO.HPS 11:29
PROVIDERS: PCP Internal Medicine; Visit Provider Internal Medicine
DX: J40 Bronchitis, not specified as acute or chronic (principal); R05.9 Cough, unspecified; J98.4 Other disorders of lung
CPT/HCPCS: 99213

== ENCOUNTER 2024-08-16 14:31 | Outpatient (AMB) | payer OTHER, SELFPAY ==
--- NOTE | 2024-08-16 14:34 | MHC.OFFVIS ---
Vital Signs 08/16/24 14:35 Height 5 ft 4 in Weight 286 lb BMI 49.1 BP 118/78 Blood Pressure Location Rt brachial Position Sitting Pulse 78 Pulse Source Pulse Oximeter Pulse Oximetry (%) 97 Oxygen Delivery Method Room Air Intake Visit Reasons: Asthma Allergies omeprazole Allergy (Mild, Verified 08/16/24 14:37) Rash Sulfa (Sulfonamide Antibiotics) Allergy (Unknown, Verified 08/16/24 14:37) Rash tramadol Allergy (Unknown, Verified 08/16/24 14:37) Rash venlafaxine (From Effexor) Allergy (Unknown, Verified 08/16/24 14:37) Rash HPI Comments Details: The patient is a 49 year woman with a known history of asthma who apparently was in her usual state health until sometime in January which started developing worsening respiratory complaints. She that she was having flu-like symptoms. Ultimately symptoms worsen. She started developing pleuritic chest discomfort. she had an evaluation in an x-ray sometime beginning of 02/26/2024 which I personally reviewed with some haziness in the right hemithorax but no overt airspace disease. Ultimately she developed worsening symptoms and she ended up going to the [facility] ER. There she did undergo a CTA demonstrating bilateral segmental and subsegmental PEs in addition to bilateral airspace disease and consolidations. She was admitted to the hospital placed on Xarelto and we given antibiotics overall she feels better from the respiratory complaints she was having. She did follow-up with Hematology and had a full hypercoagulable workup and she will be doing that soon. in addition to that an echocardiogram has been ordered. The patient understands and Xarelto will not be resolving the clots and that usually takes around 6-8 weeks to completely resolve. Therefore some point will have to follow-up with a repeat CT scan. The patient in the meantime having daytime drowsiness. Her Varysburg score is elevated 12/30. Based on her significant lower extremity edema and cardiovascular risk factors we will go ahead and request a sleep study. During the visit we also underwent a 6 minute walk test the patient did well although she was tachycardic oxygen was stable 99% which is reassuring. During the exam she did have some wheezing on examination at this point will going to optimize her respiratory therapy. I do believe Trelegy is a good option for her but it was too expensive so we went ahead and start her on Wixela. 04/12/2024 the patient is here for a pulmonary follow-up visit. Since we last spoke the patient was exposed to RSV in her family. Then after she started developing worsening cough shortness breath chest tightness and now increased mucus production. Moderate severity. Having hard time sleeping. Has a raspy voice. Her sputum is greenish in color. We were able to get a sputum sample and send it to the laboratory. She does have wheezing on examination. She does not feel good. She continues in the anticoagulation. 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 She does have 2 daughters. One of her daughters does take estrogen for control and I did advise her to consider stopping her estrogen while she waits till we get tested. In the meantime she does have rhonchi wheezing on exam. May have I postviral bacterial lower respiratory infection. Will treated for pneumonia at this time. Will give her doxycycline Vantin she will need some prednisone. Although with her significant wheezing will give her Solu-Medrol today. The patient did have a CT scan last back in February the diagnosed with pulmonary emboli. She is going to bring a copy to download. She also had airspace disease. Will plan to repeat a CT scan in 4-6 weeks to address her thromboembolic disease and also the airspace disease. 04/25/2024 the patient is here for a pulmonary sick visit. She still not 100%. She had called because she was still feeling under the weather and center another course of prednisone 60 mg with taper and also a course of azithromycin. She is down to 50 mg of prednisone at this time. She is starting to feel better. We did check her oxygen again walking and she did well. Her exam significantly better without any significant wheezing or rhonchi or crackles. Although she still diminished. She will continue to stay out of work this week and then hopefully go to work starting Monday. She did bring a copy of her CT scan that she had when she had the PEs. The patient will also undergo a repeat CT scan sometime in June to follow up the resolution of the clots. She continues use her respiratory therapy with good effect. I do hope that she does a little better. Because of all the prednisone she is having hard time sleeping. Therefore she can use Ambien as needed for sleep. 06/17/2024 the patient is here for a pulmonary follow-up visit. Overall she is feeling better finally. The patient had been sick for several months. She is still having raspiness of the voice but she is significantly better. She has been noticing though increasing shortness of breath and lower extremity edema. She also had an elevated blood pressure. She did have increased salt intake over the weekend specially for mother's day weekend. She is going to take additional Lasix when she goes home. I did advise her for her to take up to 3 days. She continues on the Xarelto. We did look at her CT scan that she has had recently. It appears that all the pulmonary emboli have resolved. Although, she understands that she needs to stay on the blood thinner. The Xarelto is very expensive for her and does not only issue with it. She does not have any minor major bleeding with it. She is going to follow-up with her director global medical affairs. She does have a genetic distribution for clotting therefore I do recommend she stay on some anticoagulation. After the duration of therapy she can consider prophylactic Xarelto if that is a possibility for her. She will talk to the director global medical affairs. The patient also had an echocardiogram which is reassuring except for some diastolic dysfunction and some septal hypertrophy. We did talk about the importance of controlling the double product in order to minimize further hypertrophy of her muscle. Her CT scan also demonstrated increased cardiac size cardiomegaly most likely due to that. The patient did not have her sleep study. She continues to have significant sleep apnea with an elevated Varysburg score. She has a reschedule it. She understands all these cardiovascular conditions are either worsen or results of the untreated sleep apnea. 08/16/2024 the patient is here for a pulmonary follow-up visit. She has been struggling with her breathing. Has had significant chest tightness wheezing and also raspiness of the voice. She was seen by Pulmonary recently and she was taken off the Wixela because of the raspiness of the voice. Although the breathing is not any better. She has significant chest tightness and wheezing. She also has significant allergies. She may be a good candidate for biologics. In the meantime will go ahead and switch her from a powdered inhaler 2 Breztri to help her with the bronchodilation. The patient does have asthma COPD overlap syndrome. The patient also did have a CT scan of the chest that was done June 2024 which I personally reviewed. The patient did have some atelectasis at the bases but otherwise reassuring CAT scan. She continues to have daytime drowsiness. Her Varysburg score is elevated 12/30. Unfortunately she still has a reschedule her sleep study that she has not had yet. Therefore, will have her get some pulmonary function studies have her follow-up in 3 months the patient should get some blood work as well. We can talk about biologics further specially if she continues to be symptomatic during the next visit. REPLACED BY [facility] Medical History (Updated 08/16/24 @ 15:17 by Dago Gramajo MD) Allergy Restrictive lung disease Tracheobronchitis Pneumonia Asthma Vitamin D deficiency Right shoulder pain Non-infective diarrhea Mixed anxiety and depressive disorder Mild persistent asthma Hyperlipidemia Headache Cyst of nasopharynx Cobalamin deficiency Cervical radiculopathy Cerebral arterial aneurysm Body mass index 40.0-44.9, adult ADHD Family History Father Rheumatoid arthritis Other FH: mental illness Social History Household Members: Family Housing: House Alcohol intake: former Patient Tobacco Use Status: Former Tobacco user Cigarette Packs Per Day: 1 Years Smoked: 5 e-Cigarette/Vaping Use: Never Used Current occupational status: employed 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 Current occupational exposures/hazards: No Gender identity: Female Cognitive needs: No Hearing needs: No Vision needs: No Review of Systems Const Denies chills, Reports daytime sleepiness, Reports difficulty sleeping, Denies fatigue, Denies fever(s) and Reports snoring Eyes Reports no additional complaints ENT Denies dizziness and Reports hoarseness Card Denies chest pain, Reports leg edema, Denies lightheadedness, Denies palpitations, Reports dyspnea on exertion, Denies orthopnea and Denies other Resp Reports cough, Reports dyspnea on exertion, Reports snoring and Denies wheezing GI Denies hematochezia and Denies change in stool character Musc Denies abnormal gait, Denies muscle weakness, Denies numbness, Denies radiating pain into limb and Denies tingling Skin/Breast Denies rash Neuro Denies abnormal gait, Denies dizziness, Denies numbness and Denies tingling Endo Denies fatigue and Denies palpitations Amish/Lymph Reports no additional complaints Aller/Immun Denies wheezing Physical Exam Vital Signs: Last Vital Signs Pulse 78 08/16/24 14:35 BP 118/78 08/16/24 14:35 Pulse Ox 97 08/16/24 14:35 Oxygen Delivery Method Room Air 08/16/24 14:35 BMI result Body Mass Index 49.1 Const General: comfortable HEENT Head: Yes normocephalic Neck Neck: Yes supple Chest Chest palpation & inspection: normal inspection of the chest Resp Effort & Inspection: normal respiratory effort Auscultation: diminished lung sounds Cardio Heart sounds: S1 normal heart sound present and S2 normal heart sound present GI Palpation (GI): Soft to palpation Skin General skin exam: no rashes or lesions noted Extrem General: No clubbing, No cyanosis and Yes edema Assessment & Plan Assessment & Plan (1) Pulmonary embolism: Code(s): I26.99 - Other pulmonary embolism without acute cor pulmonale Category: Medical Qualifiers: Pulmonary embolism type: multiple subsegmental (without acute cor pulmonale) Qualified Code(s): I26.94 - Multiple subsegmental thrombotic pulmonary emboli without acute cor pulmonale (2) Shortness of breath: Code(s): R06.02 - Shortness of breath Category: Medical (3) Asthma: Code(s): J45.909 - Unspecified asthma, uncomplicated Category: Medical Qualifiers: Asthma complication type: uncomplicated Asthma persistence: persistent Asthma severity: moderate Qualified Code(s): J45.40 - Moderate persistent asthma, uncomplicated (4) ROGELIO (obstructive sleep apnea): Code(s): G47.33 - Obstructive sleep apnea (adult) (pediatric) Category: Medical Plan Wixela ROMEO as needed continue Xorelto. Home PSG Bloodwork/allergy testing Azithromycin MWF x 4 weeks ambien for sleep F/U 4-6 months Orders: Orders Resp Allergy Profile Region I 08/16/24 J45.40 - Moderate persistent asthma, uncomplicated, R06.02 - Shortness of breath, R91.1 - Solitary pulmonary nodule, T78.40XA - Allergy, unspecified, initial encounter Complete Blood Count Auto Diff 08/16/24 J45.40 - Moderate persistent asthma, uncomplicated, R06.02 - Shortness of breath, T78.40XA - Allergy, unspecified, initial encounter Immunoglobulin E 08/16/24 J45.40 - Moderate persistent asthma, uncomplicated, R06.02 - Shortness of breath, T78.40XA - Allergy, unspecified, initial encounter Immunoglobulins,IgG IgA IgM 08/16/24 J45.40 - Moderate persistent asthma, uncomplicated, R06.02 - Shortness of breath, T78.40XA - Allergy, unspecified, initial encounter Hypersensitive Pneumonitis Prf 08/16/24 J45.40 - Moderate persistent asthma, uncomplicated, R06.02 - Shortness of breath, R91.8 - Other nonspecific abnormal finding of lung field, T78.40XA - Allergy, unspecified, initial encounter Erythrocyte Sedimentation Rate 08/16/24 J45.40 - Moderate persistent asthma, uncomplicated, R06.02 - Shortness of breath, T78.40XA - Allergy, unspecified, initial encounter Medications: New azithromycin Take 1 tablet on Monday/Monday/Monday 250 mg PO 3XW 12 tabs 0RF 28 days K21.9 - Gastro-esophageal reflux disease without esophagitis [id number]-[id number] 160-9-4.8 mcg/actuation (Breztri Aerosphere) 2 inhalations inhalation BID 10.7 grams 11RF 30 days Coding Level of Care Code Est Pt Level 4 (95093) Complex EM visit Add On G2211 Diagnoses Multiple subsegmental pulmonary emboli without acute cor pulmonale I26.94 Pulmonary embolism type: multiple subsegmental (without acute cor pulmonale) Shortness of breath R06.02 Moderate persistent asthma without complication J45.40 Asthma complication type: uncomplicated Asthma persistence: persistent Asthma severity: moderate ROGELIO (obstructive sleep apnea) G47.33 Time Spent (min) 16
--- OUTSIDE RECORDS SUMMARY | 2024-08-16 14:34 | XMS_ITS | Patient Health Record ---
Author Organization [facility] Address [address] [facility] [address] [place] [address] Care Team Providers Care County Bailiff Name Role Phone Lynne Jean Primary Care [...] Orally flora ry 12hrs as needed Active Uutvsfhcso-YUHE-Dmgvgfum 50-325-40 MG 1 tablet as needed Orally [...] Problem Status W/U Status Risk Notes Problem [id number] Equinus deformity of right foot (M21.6X1) Active confirmed Problem [id number] Equinus deformity of left foot (M21.6X2) Active [...] Date Coverage End Date [employer] [address] [address] [place] [address] [id number] Juan A Ferreira Self - patient is [...] ctomy and fusion 2006 Laparoscopy, cholecystectomy 08/17/16 [place] Breast Reduction 2000 Remove tonsils adenoids, under 12 Total disc Arthrp Ant Apw/Discectomy CRV 2017
[2024-08-16 14:35] VITALS: BP 118/78; PULSE 78; O2SAT 97; BMI 49.1
--- OUTSIDE RECORDS SUMMARY | 2024-08-16 14:35 | XMS_ITS | Clinical Summary ---
Author Organization [facility] [address] Address [address] [place] [address] Phone Care Team Providers Care Health And Wellness Manager Name Role Phone Lynne Jean MD Primary Care Provider [phone] Allergies Active Allergy Reactions Criticality Noted Date Comments Sulfa (Sulfonamide Antibiotics) 03/23/2016 Other Reaction(s): Rash/Dermatitis Tramadol Headache,Nausea And Vomiting 03/23/2016 Venlafaxine Nausea And Vomiting 03/23/2016 Medications aspirin 81 mg EC tablet Take 1 tablet (81 mg total) by mouth 1 (one) time each day. 023 Active metoprolol succinate (TOPROL-XL) 25 mg 24 hr tablet Take 0.5 tablets (12.5 mg total) by mouth 1 (one) time each day. Active amLODIPine (NORVASC) 5 mg tablet Take 1 Tablet by mouth daily for 180 days. Active gabapentin (NEURONTIN) 300 mg capsule TAKE 1 -2 CAPSULES BY MOUTH 3 TIMES A DAY FOR 30 DAYS Active cyclobenzaprine (FLEXERIL) 10 mg tablet Active oxyCODONE (ROXICODONE) 5 mg immediate release tablet Take 1 tablet (5 mg total) by mouth every 6 (six) hours if needed for moderate pain. Active clotrimazole-beta methasone (LOTRISONE) 1-0.05 % cream Apply topically as needed Active montelukast (SINGULAIR) 10 mg tablet Take 1 tablet (10 mg total) by mouth at bedtime. Active diazePAM (VALIUM) 5 mg tablet Take 1 Tablet by mouth every 8 hours as needed (muscle spasm). Active albuterol HFA (PROAIR HFA ; PROVENTIL HFA ; VENTOLIN HFA) 90 mcg/actuation inhaler Inhale 2 Puffs into the lungs every 4 hours as needed for Cough, Wheezing or Shortness of Breath. Active ondansetron (ZOFRAN) 4 mg tablet Take 1 tablet (4 mg total) by mouth every 8 (eight) hours if needed for nausea. Active betamethasone valerate (VALISONE) 0.1 % ointment APPLY 1 G TO AFFECTED AREA DAILY NEEDED. Active albuterol 2.5 mg /3 mL (0.083 %) nebulizer solution Take 1 Vial by nebulization every 4 hours as needed for Wheezing for up to 180 days. Active loratadine (CLARITIN) 10 mg tablet Take 1 tablet (10 mg total) by mouth 1 (one) time each day. Active reservoir inhalation (INSPIREASE) device Use as directed. 017 Active folic acid (FOLVITE) 1 mg tablet Take 1 tablet (1 mg total) by mouth 1 (one) time each day. Active ipratropium-albut Mariam (DUONEB) 0.5-2.5 mg/3 mL nebulizer solution Take [...] time each day with dinner. 51 tablet 025 Active norethindrone (MAKEDA,MARIA VICTORIA,HEA THER,MICRONOR) 0.35 mg tablet Take 1 tablet (0.35 mg total) by mouth 1 (one) time each day. 84 tablet 5 025 2025 Active norethindrone (MAKEDA,MARIA VICTORIA,HEA THER,MICRONOR) 0.35 mg tabletIndications :Encounter for repeat prescription of oral contraceptives Take 1 tablet (0.35 mg total) by mouth 1 (one) time each day. 28 tablet 2 025 2024 Discontinued Active Problems Problem Noted Date Diagnosed Date Pulmonary embolism ([facility] V24, [facility] V28) Anxiety and depression 12/26/2023 DDD (degenerative disc disease), cervical 2023 Deficiency of vitamin B12 12/26/2023 Hypertension 12/26/2023 Uterine polyp 12/26/2023 Vitamin D deficiency 12/26/2023 Morbid obesity with BMI of 4 0.0-44.9, adult ([facility] V24, [facility] V28) 12/26/2023 Abnormal EKG 01/07/2022 Elevated blood [...] older (Afluria) 3 years and older 11/23/2018 [place] SARS-CoV-2 COVID-19, mRNA, LNP-S, preservative free 03/29/2021,02/18/2020,01/26/2020 [...] TONSILLECTOMY ADENOIDECTOMY, BILATERAL MYRINGOTOMY AND TUBES PROCEDURE: [place] TONSILLECTOMY & ADENOIDECTOMY <AGE 12 BREAST REDUCTION 2000 PROCEDURE: [place] BREAST REDUCTION CHOLECYSTECTOMY 08/17/2016 PROCEDURE: [place] LAPAROSCOPY SURG CHOLECYSTECTOMY; COMMENT: Laparoscopic cholecystectomy; [place]; Dr. Matos OTHER SURGICAL HISTORY PROCEDURE: TOTAL DISC ARTHRP ANT APW/DISCECTOMY CRV 3+; COMMENT: 2017 OTHER SURGICAL HISTORY PROCEDURE: [place] ANESTHESIA CERVICAL SPINE & CORD NOS Medical [...] 79 02/29/2024 10:59 PM EST Temperature 36.7 C (98 F) 02/29/2024 10:59 PM EST Respiratory Rate 18 [...] 5 Years) and At-Risk Patients (6 to 49 Years) (1 of 2 - PCV) 1996 Colorectal Cancer Screening: Colonoscopy 03/08/2019 Depression Screening 03/08/2019 HIV Screening 03/08/2019 Hepatitis C Screening 03/08/2019 Social Influencers of Health Screening 03/08/2019 COVID-19 Vaccine ( season) 2023 09/10/2022, 03/29/2021, 02/18/2020, Additional history exists Influenza Vaccine (#1) 2024 , 11/23/2018, 11/01/2016 Hypertension/CHF/CAD Annual BMP Blood [...] mmol/L LAB CHEMISTRY METHOD 02/29/2024 1:46 PM [facility] Potassium 3.8 3.5 - 5.5 mmol/L LAB CHEMISTRY METHOD 02/29/2024 1:46 PM [facility] Chloride 94(L) 96 - 110 mmol/L LAB CHEMISTRY METHOD 02/29/2024 1:46 PM [facility] CO2 27 21 - 32 mmol/L LAB CHEMISTRY METHOD 02/29/2024 1:46 PM [facility] Anion Gap 9 3 - 11 LAB CHEMISTRY METHOD 02/29/2024 1:46 PM [facility] Glucose 153(H) 70 - 100 mg/dL LAB CHEMISTRY METHOD 02/29/2024 1:46 PM [facility] BUN 22 5 - 25 mg/dL LAB CHEMISTRY METHOD 02/29/2024 1:46 PM [facility] Creatinine 1.34(H) 0.50 - 1.10 mg/dL LAB CHEMISTRY METHOD 02/29/2024 1:46 PM EST [facility] eGFR 50(L) >=60 mL/min/1. 73m2 LAB CHEMISTRY METHOD 02/29/2024 1:46 PM EST [facility] Comment:Calculation based on the Chronic Kidney Disease Epidemiology Collaboration (CKD-EPI) equation refit without adjustment for race. BUN/Creatinine Ratio 16.4 LAB CHEMISTRY METHOD 02/29/2024 1:46 PM EST [facility] Calcium 10.0 8.5 - 10.5 mg/dL LAB CHEMISTRY METHOD 02/29/2024 1:46 PM [facility] Blood Venous blood specimen / Unknown Venipuncture / Unknown 02/29/2024 12:02 PM EST 02/29/2024 1:18 PM EST Vickey Sharma MD LAB BLOOD ORDERABLES Final Resu lt [facility] [address] [place] [address], * Cervical Cancer Screening: HPV (08/26/2021) [facility] Cervical Cancer Screening: HPV abstracted, negative Historical [facility] [employer] Final Result * (ABNORMAL) Lipid panel (09/29/2020) [facility] LDL/HDL Ratio 3 0 - 4 Triglycerides 225(A) 0 - 150 mg/dL Cholesterol 154 0 - 200 mg/dL HDL 54 >=40 mg/dL LDL Cholesterol 55 0 - 100 mg/dL Blood Venous blood specimen / Unknown Zelalem Beck MD LAB BLOOD ORDERABLES Yue l Result from [...] currently active code status orders. Care Teams Health And Wellness Manager Relationship Specialty Start Date End Date Lynne Jean MD [address] [place] [address] PCP - General Internal Medicine 05/28/24
== END 2024-08-16 15:21 | disposition home or self-care (01) ==
LOC: HO.HPS 14:32
PROVIDERS: PCP Internal Medicine; Visit Provider Hospitalist
DX: I26.94 Multiple subsegmental thrombotic pulmonary emboli without acute cor pulmonale (principal); R06.02 Shortness of breath; J45.40 Moderate persistent asthma, uncomplicated; G47.33 Obstructive sleep apnea (adult) (pediatric)
CPT/HCPCS: 99214; G2211

== ENCOUNTER 2024-10-23 09:02 | Outpatient (REF) | payer OTHER, SELFPAY ==
--- OUTSIDE RECORDS SUMMARY | 2024-10-23 12:28 | XMS_ITS | Encounter Summary ---
Author Organization [facility] Address [address] [place] [address] Care Team Providers Care Men'S Furnishings Salesperson Name Role Phone Lynne Ramos MD Primary Care Provider Eileen Diaz MD Primary Care Provider [place] [facility] [place] [facility], Pcp Primary Care Provider Lynne Seaman MD Primary Care Provider Suzi Anthony PA-C Unavailable Unavailable Venancio Brown MD Unavailable [phone] Encounter Details Date Type Department Care Team Description 09/12/2017 Supply Chain Development Manager Report Medical Records [address] [place] [id number] Rosita Will MD Social History Tobacco Use [...] on filedocumented in this encounter Care Teams Men'S Furnishings Salesperson Relationship Specialty Start Date End Date Lynne Ramos MD PCP - General Internal Medicine 03/23/16 05/03/20 Eileen Aleman MD PCP - General Internal Medicine 05/04/20 09/14/21 [facility] [place] [facility], [facility] PCP - General Internal Medicine 09/15/21 01/05/22 Lynne Ramos MD PCP - General Internal Medicine 01/06/22 Suzi Kelly PA-C Specialist Internal Medicine 01/06/22 Venancio Brown MD [address] [place] [address] Specialist Cardiovascular Disease 01/06/22 documented as of this encounter
--- OUTSIDE RECORDS SUMMARY | 2024-10-23 12:28 | XMS_ITS | Encounter Summary ---
Author Organization [facility] Address [address] [place] [address] Care Team Providers Care Dump Motorman Name Role Phone Lynne Ramos MD Primary Care Provider Eileen Diaz MD Primary Care Provider [place] [facility], Pcp Primary Care Provider Lynne Seaman MD Primary Care Provider Suzi Anthony PA-C Unavailable Unavailable Venancio Brown MD Unavailable [phone] Encounter Details Date Type Department Care Team Description 08/13/2016 [facility] Medical Records [address] [place] [address] Bo Story MD Social History Tobacco Use Types Packs/Day [...] on filedocumented in this encounter Care Teams Dump Motorman Relationship Specialty Start Date End Date Lynne Ramos MD PCP - General Internal Medicine 03/23/16 05/03/20 Eileen Aleman MD PCP - General Internal Medicine 05/04/20 09/14/21 [facility], [facility] PCP - General Internal Medicine 09/15/21 01/05/22 Lynne Ramos MD PCP - General Internal Medicine 01/06/22 Suzi Kelly PA-C Specialist Internal Medicine 01/06/22 Venancio Brown MD [address] [place] [address] Specialist Cardiovascular Disease 01/06/22 documented as of this encounter
--- OUTSIDE RECORDS SUMMARY | 2024-10-23 12:28 | XMS_ITS | Encounter Summary ---
Author Organization [facility] Address [address] [place] [address] Care Team Providers Care Tufting Creeler Name Role Phone Eileen Aleman MD Primary Care Provider [facility], Pcp Primary Care Provider Lynne Seaman MD Primary Care Provider Suzi Anthony PA-C Unavailable Unavailable Venancio Brown MD Unavailable [phone] Encounter Details Date Type Department Care Team Description 07/27/2021 Telephone [facility] [address] [place] [address] Edson Adam PA-C [address] [place] [address] Social History Tobacco Use Types Packs/Day Years [...] on filedocumented in this encounter Care Teams Tufting Creeler Relationship Specialty Start Date End Date Eileen Aleman MD PCP - General Internal Medicine 05/04/20 09/14/21 [facility], Pcp PCP - General Internal Medicine 09/15/21 01/05/22 Lynne Ramos MD PCP - General Internal Medicine 01/06/22 Suzi Kelly PA-C Specialist Internal Medicine 01/06/22 Venancio Brown MD [address] [place] [address] Specialist Cardiovascular Disease 01/06/22 documented as of this encounter
--- OUTSIDE RECORDS SUMMARY | 2024-10-23 12:28 | XMS_ITS | Encounter Summary ---
Author Organization [facility] Address [address] [place] [address] Care Team Providers Care Dormitory Keeper Name Role Phone Lynne Ramos MD Primary Care Provider Eileen Diaz MD Primary Care Provider [place] [facility], Pcp Primary Care Provider UnavailLynne Barnes MD Primary Care Provider Suzi Anthony PA-C Unavailable Unavailable Venancio Brown MD Unavailable [phone] Encounter Details Date Type Department Care Team Description 03/25/2016 Release of Information Medical Records [address] [place] [address] Abstract, Provider Social History Tobacco Use Types [...] on filedocumented in this encounter Care Teams Dormitory Keeper Relationship Specialty Start Date End Date Lynne Ramos MD PCP - General Internal Medicine 03/23/16 05/03/20 Eileen Aleman MD PCP - General Internal Medicine 05/04/20 09/14/21 [facility], Pcp PCP - General Internal Medicine 09/15/21 01/05/22 Lynne Ramos MD PCP - General Internal Medicine 01/06/22 Suzi Kelly PA-C Specialist Internal Medicine 01/06/22 Venancio Brown MD [address] [place] [address] Specialist Cardiovascular Disease 01/06/22 documented as of this encounter
--- OUTSIDE RECORDS SUMMARY | 2024-10-23 12:28 | XMS_ITS | Encounter Summary ---
Author Organization [facility] Address [address] [place] [address] Care Team Providers Care Oracle Endeca Consultant Name Role Phone Eileen Aleman MD Primary Care Provider [facility], Pcp Primary Care Provider Lynne Seaman MD Primary Care Provider Suzi Anthony PA-C Unavailable Unavailable Venancio Brown MD Unavailable [phone] Encounter Details Date Type Department Care Team Description 04/22/2021 Pt. Non Urgent Medical Question Medicine/Pediatrics - [address] [phone] Eileen Aleman MD DDD (degenerative disc disease), [...] disc documented in this encounter Care Teams Oracle Endeca Consultant Relationship Specialty Start Date End Date Eileen Aleman MD PCP - General Internal Medicine 05/04/20 09/14/21 [facility], Pcp PCP - General Internal Medicine 09/15/21 01/05/22 Lynne Ramos MD PCP - General Internal Medicine 01/06/22 Suzi Kelly PA-C Specialist Internal Medicine 01/06/22 Venancio Brown MD [address] [place] [address] Specialist Cardiovascular Disease 01/06/22 documented as of this encounter
--- OUTSIDE RECORDS SUMMARY | 2024-10-23 12:28 | XMS_ITS | Encounter Summary ---
Author Organization [facility] Address [address] [place] [address] Care Team Providers Care Premium Representative Name Role Phone Lynne Ramos MD Primary Care Provider Eileen Diaz MD Primary Care Provider [facility], Pcp Primary Care Provider Lynne Seaman MD Primary Care Provider Suzi Anthony PA-C Unavailable Unavailable Venancio Brown MD Unavailable [phone] Reason for Visit * Reason Onset Date Comments Prior Authorization 07/08/2016 Encounter Details Date Type Department Care Team Description 07/08/2016 [place] Medicine/Pediatrics - [address] [phone] Lynne Ramos MD Prior Authorization Social History [...] has to bring her contraceptive card from [facility] to the pharmacy,if you dont have one please call [facility] * Telephone Encounter - Sophy Magallanes - 07/08/2016 1:39 PM EDT Pre Authorization for Medication-do not complete and send this encounter unless you have the fax from the pharmacy. Is this a Cover My Meds request: Burney of Medication nuvaring vaginal ring Dose of Medication How does patient take this med? Insert 1 ring vaginally for 3 weeks What Pharmacy did the fax come from: [facility] fax #: [phone] [employer] Party Information from fax: What Prescription Plan does the patient have? Advance rx BIN/PCN if applicable: Cardholder ID:[id number] Person Code: Relationship Code: 1 Help desk phone: [phone] documented in this encounter Plan of Treatment Not on file documented as of this encounter Visit Diagnoses Not on filedocumented in this encounter Care Teams Premium Representative Relationship Specialty Start Date End Date Lynne Ramos MD PCP - General Internal Medicine 03/23/16 05/03/20 Eileen Aleman MD PCP - General Internal Medicine 05/04/20 09/14/21 [facility], Pcp PCP - General Internal Medicine 09/15/21 01/05/22 Lynne Ramos MD PCP - General Internal Medicine 01/06/22 Suzi Kelly PA-C Specialist Internal Medicine 01/06/22 Venancio Brown MD [address] [place] [address] Specialist Cardiovascular Disease 01/06/22 documented as of this encounter
--- OUTSIDE RECORDS SUMMARY | 2024-10-23 12:28 | XMS_ITS | Encounter Summary ---
Author Organization [facility] Address [address] [place] [address] Care Team Providers Care Medical Oncologist Name Role Phone Lynne Ramos MD Primary Care Provider Eileen Diaz MD Primary Care Provider [facility], Pcp Primary Care Provider Lynne Seaman MD Primary Care Provider Suzi Anthony PA-C Unavailable Unavailable Venancio Brown MD Unavailable [phone] Reason for Visit * Reason Onset Date Comments Call From Pharmacy 08/17/2016 Encounter Details Date Type Department Care Team Description 08/17/2016 Telephone General Surgery [address] [place] [address] Kadeem Maots MD [address] [place] [address] Call From Pharmacy Social History Tobacco Use [...] - 08/17/2016 2:57 PM EDT Garrick from [facility] on [facility] in [place] called stating Dr Matos prescribed Colaceand Sennas. The Sennas has Colace in it. Pharmacist is asking which one does Dr Matos want to prescribe. Please call [phone] documented in this encounter Plan of Treatment Not on file documented as of this encounter Visit Diagnoses Not on filedocumented in this encounter Care Teams Medical Oncologist Relationship Specialty Start Date End Date Lynne Ramos MD PCP - General Internal Medicine 03/23/16 05/03/20 Eileen Aleman MD PCP - General Internal Medicine 05/04/20 09/14/21 [facility], Pcp PCP - General Internal Medicine 09/15/21 01/05/22 Lynne Ramos MD PCP - General Internal Medicine 01/06/22 Suzi Kelly PA-C Specialist Internal Medicine 01/06/22 Venancio Brown MD [address] [place] [address] Specialist Cardiovascular Disease 01/06/22 documented as of this encounter
--- OUTSIDE RECORDS SUMMARY | 2024-10-23 12:28 | XMS_ITS | Encounter Summary ---
Author Organization [facility] Address [address] [place] [address] Care Team Providers Care Arch Cushion Skiving Machine Operator Name Role Phone Eileen Aleman MD Primary Care Provider [facility], Pcp Primary Care Provider Lynne Seaman MD Primary Care Provider Suzi Anthony PA-C Unavailable Unavailable Venancio Brown MD Unavailable [phone] Encounter Details Date Type Department Care Team Description 07/13/2021 Map Editor Report Medical Records [address] [place] [id number] Abstract, Provider Social History Tobacco Use Types [...] on filedocumented in this encounter Care Teams Arch Cushion Skiving Machine Operator Relationship Specialty Start Date End Date Eileen Aleman MD PCP - General Internal Medicine 05/04/20 09/14/21 [facility], [facility]cp PCP - General Internal Medicine 09/15/21 01/05/22 Lynne Ramos MD PCP - General Internal Medicine 01/06/22 Suzi Kelly PA-C Specialist Internal Medicine 01/06/22 Venancio Brown MD [address] [place] [address] Specialist Cardiovascular Disease 01/06/22 documented as of this encounter
--- OUTSIDE RECORDS SUMMARY | 2024-10-23 12:28 | XMS_ITS | Encounter Summary ---
Author Organization [facility] Address [address] [place] [address] Care Team Providers Care Timber Inspector Name Role Phone Lynne Ramos MD Primary Care Provider Eileen Diaz MD Primary Care Provider [facility], Pcp Primary Care Provider Lynne Seaman MD Primary Care Provider Suzi Anthony PA-C Unavailable Unavailable Venancio Brown MD Unavailable [phone] Reason for Visit * Reason Onset Date Comments Testing 02/02/2017 Encounter Details Date Type Department Care Team Description 02/02/2017 Telephone Radiology - [address] [address] Nilsa Luevano MD Testing Social History Tobacco [...] on filedocumented in this encounter Care Teams Timber Inspector Relationship Specialty Start Date End Date Lynne Ramos MD PCP - General Internal Medicine 03/23/16 05/03/20 Eileen Aleman MD PCP - General Internal Medicine 05/04/20 09/14/21 [facility] PCP - General Internal Medicine 09/15/21 01/05/22 Lynne Ramos MD PCP - General Internal Medicine 01/06/22 Suzi Kelly PA-C Specialist Internal Medicine 01/06/22 Venancio Brown MD [address] [place] [address] Specialist Cardiovascular Disease 01/06/22 documented as of this encounter
--- OUTSIDE RECORDS SUMMARY | 2024-10-23 12:28 | XMS_ITS | Encounter Summary ---
Author Organization [facility] Address [address] [place] [address] Care Team Providers Care Pipe Insulator Name Role Phone Lynne Ramos MD Primary Care Provider Eileen Diaz MD Primary Care Provider [facility], Pcp Primary Care Provider Lynne Seaman MD Primary Care Provider Suzi Anthony PA-C Unavailable Unavailable Venancio Brown MD Unavailable [phone] Encounter Details Date Type Department Care Team Description 09/20/2017 [facility] Controlled Substance Contract Medical Records [address] [place] [address] Abstract, Provider Social History Tobacco Use Types [...] on filedocumented in this encounter Care Teams Pipe Insulator Relationship Specialty Start Date End Date Lynne Ramos MD PCP - General Internal Medicine 03/23/16 05/03/20 Eileen Aleman MD PCP - General Internal Medicine 05/04/20 09/14/21 [facility] PCP - General Internal Medicine 09/15/21 01/05/22 Lynne Ramos MD PCP - General Internal Medicine 01/06/22 Suzi Kelly PA-C Specialist Internal Medicine 01/06/22 Venancio Brown MD [address] [place] [address] Specialist Cardiovascular Disease 01/06/22 documented as of this encounter
--- OUTSIDE RECORDS SUMMARY | 2024-10-23 12:28 | XMS_ITS | Encounter Summary ---
Author Organization [facility] Address [address] [place] [address] Care Team Providers Care Turner Splitter Machine Operator Name Role Phone Eileen Aleman MD Primary Care Provider [facility], Pcp Primary Care Provider Lynne Seaman MD Primary Care Provider Suzi Anthony PA-C Unavailable Unavailable Venancio Brown MD Unavailable [phone] Encounter Details Date Type Department Care Team Description 06/21/2021 Pt. Non Urgent Medical Question [facility] [address] [place] [address] Edson Adam PA-C [address] [place] [address] Social History Tobacco Use Types Packs/Day Years [...] on filedocumented in this encounter Care Teams Turner Splitter Machine Operator Relationship Specialty Start Date End Date Eileen Aleman MD PCP - General Internal Medicine 05/04/20 09/14/21 [facility], Pcp PCP - General Internal Medicine 09/15/21 01/05/22 Lynne Ramos MD PCP - General Internal Medicine 01/06/22 Suzi Kelly PA-C Specialist Internal Medicine 01/06/22 Venancio Brown MD [address] [place] [address] Specialist Cardiovascular Disease 01/06/22 documented as of this encounter
--- OUTSIDE RECORDS SUMMARY | 2024-10-23 12:28 | XMS_ITS | Encounter Summary ---
Author Organization [facility] Address [address] [place] [address] Care Team Providers Care Home Aid Name Role Phone Lynne Ramos MD Primary Care Provider Eileen Diaz MD Primary Care Provider [facility], Pcp Primary Care Provider Lynne Seaman MD Primary Care Provider Suzi Anthony PA-C Unavailable Unavailable Venancio Brown MD Unavailable [phone] Encounter Details Date Type Department Care Team Description 11/22/2018 Controlled Substance Plan Medical Records [address] [place] [address] Abstract, Provider Social History Tobacco Use Types [...] filedocumented in this encounter Care Teams Home Aid Relationship Specialty Start Date End Date Lynne Ramos MD PCP - General Internal Medicine 03/23/16 05/03/20 Eileen Aleman MD PCP - General Internal Medicine 05/04/20 09/14/21 [facility] PCP - General Internal Medicine 09/15/21 01/05/22 Lynne Ramos MD PCP - General Internal Medicine 01/06/22 Suzi Kelly PA-C Specialist Internal Medicine 01/06/22 Venancio Brown MD [address] [place] [address] Specialist Cardiovascular Disease 01/06/22 documented as of this encounter
--- OUTSIDE RECORDS SUMMARY | 2024-10-23 12:28 | XMS_ITS | Encounter Summary ---
Author Organization [facility] Address [address] [place] [address] Care Team Providers Care Bench Examiner Name Role Phone Lynne Ramos MD Primary Care Provider Eileen Diaz MD Primary Care Provider [facility], Pcp Primary Care Provider UnavailLynne Barnes MD Primary Care Provider Suzi Anthony PA-C Unavailable Unavailable Venancio Brown MD Unavailable [phone] Encounter Details Date Type Department Care Team Description 03/08/2017 Release of Information Medical Records [address] [place] [address] Abstract, Provider Social History Tobacco Use Types [...] on filedocumented in this encounter Care Teams Bench Examiner Relationship Specialty Start Date End Date Lynne Ramos MD PCP - General Internal Medicine 03/23/16 05/03/20 Eileen Aleman MD PCP - General Internal Medicine 05/04/20 09/14/21 [facility], Pcp PCP - General Internal Medicine 09/15/21 01/05/22 Lynne Ramos MD PCP - General Internal Medicine 01/06/22 Suzi Kelly PA-C Specialist Internal Medicine 01/06/22 Venancio Brown MD [address] [place] [address] Specialist Cardiovascular Disease 01/06/22 documented as of this encounter
--- OUTSIDE RECORDS SUMMARY | 2024-10-23 12:28 | XMS_ITS | Encounter Summary ---
Author Organization [facility] Address [address] [place] [address] Care Team Providers Care Hot Roll Inspector Name Role Phone Lynne Ramos MD Primary Care Provider Eileen Diaz MD Primary Care Provider [place] [facility], Pcp Primary Care Provider Lynne Seaman MD Primary Care Provider Suzi Anthony PA-C Unavailable Unavailable Venancio Brown MD Unavailable [phone] Encounter Details Date Type Department Care Team Description 12/26/2018 [place] Only Medicine/Pediatrics [address] [phone] Lynne Ramos MD Social History Tobacco Use [...] on filedocumented in this encounter Care Teams Hot Roll Inspector Relationship Specialty Start Date End Date Lynne Ramos MD PCP - General Internal Medicine 03/23/16 05/03/20 Eileen Aleman MD PCP - General Internal Medicine 05/04/20 09/14/21 [facility], Pcp PCP - General Internal Medicine 09/15/21 01/05/22 Lynne Ramos MD PCP - General Internal Medicine 01/06/22 Suzi Kelly PA-C Specialist Internal Medicine 01/06/22 Venancio Brown MD [address] [place] [address] Specialist Cardiovascular Disease 01/06/22 documented as of this encounter
--- OUTSIDE RECORDS SUMMARY | 2024-10-23 12:28 | XMS_ITS | Encounter Summary ---
Author Organization [facility] Address [address] [place] [address] Care Team Providers Care Enterostomal Nurse Name Role Phone Lynne Ramos MD Primary Care Provider Eileen Diaz MD Primary Care Provider [facility], Pcp Primary Care Provider Lynne Seaman MD Primary Care Provider Suzi Anthony PA-C Unavailable Unavailable Venancio Brown MD Unavailable [phone] Encounter Details Date Type Department Care Team Description 02/19/2020 Pt. Non Urgent Medical Question OBGYN - [place] [address] [place] [address] Angélica Mendoza CNM [address] [place] [address] Social History Tobacco Use Types Packs/Day Years [...] encounter Miscellaneous Notes * Telephone Encounter - Arelis Guzmán R.N. - 02/19/2020 2:08 PM ESTFrom: Juan A Ferreira To: Angélica Mendoza CNM Sent: 02/19/2020 11:07 AM EST Subject: Appt/refill Good morning, I am looking to see if you would be able to send over a 3 month supply of my control to [facility]. I have tried to call make an appt for my annual but am unable to wait on hold, right now I am working in the [facility] in [place] so timing is hard, but I will make an appointment. < BR />Thank you Juan A documented in this encounter Plan of Treatment Not on file documented as of this encounter Visit Diagnoses Not on filedocumented in this encounter Care Teams Enterostomal Nurse Relationship Specialty Start Date End Date Lynne Ramos MD PCP - General Internal Medicine 03/23/16 05/03/20 Eileen Aleman MD PCP - General Internal Medicine 05/04/20 09/14/21 [facility], Pcp PCP - General Internal Medicine 09/15/21 01/05/22 Lynne Ramos MD PCP - General Internal Medicine 01/06/22 Suzi Kelly PA-C Specialist Internal Medicine 01/06/22 Venancio Brown MD [address] [place] [address] Specialist Cardiovascular Disease 01/06/22 documented as of this encounter
--- OUTSIDE RECORDS SUMMARY | 2024-10-23 12:28 | XMS_ITS | Encounter Summary ---
Author Organization [facility] Address [address] [place] [address] Care Team Providers Care Airplane Cabin Attendant Name Role Phone Eileen Aleman MD Primary Care Provider [facility], Pcp Primary Care Provider Lynne Seaman MD Primary Care Provider Suzi Anthony PA-C Unavailable Unavailable Venancio Brown MD Unavailable [phone] Reason for Visit * Reason Onset Date Comments refill request 06/28/2021 Encounter Details Date Type Department Care Team Description 06/28/2021 Telephone Medicine/Pediatrics - [address] [address] Eileen Aleman MD refill request Social History [...] disc documented in this encounter Care Teams Airplane Cabin Attendant Relationship Specialty Start Date End Date Eileen Aleman MD PCP - General Internal Medicine 05/04/20 09/14/21 [facility] PCP - General Internal Medicine 09/15/21 01/05/22 Lynne Ramos MD PCP - General Internal Medicine 01/06/22 Suzi Kelly PA-C Specialist Internal Medicine 01/06/22 Venancio Brown MD [address] [place] [address] Specialist Cardiovascular Disease 01/06/22 documented as of this encounter
--- OUTSIDE RECORDS SUMMARY | 2024-10-23 12:28 | XMS_ITS | Encounter Summary ---
Author Organization [facility] Address [address] [place] [address] Care Team Providers Care Dock Builder Name Role Phone Lynne Ramos MD Primary Care Provider Eileen Diaz MD Primary Care Provider [facility], Pcp Primary Care Provider Lynne Seaman MD Primary Care Provider Suzi Anthony PA-C Unavailable Unavailable Venancio Brown MD Unavailable [phone] Reason for Visit * Reason Onset Date Comments TEST RESULTS 12/02/2019 Encounter Details Date Type Department Care Team Description 12/02/2019 Telephone Pulmonology - [place] [address] [facility] [address] [place] [address] Radha Ruiz MD [address] [place] [address] TEST RESULTS Social History Tobacco [...] [facility] Contact: ----- Message from [email or web address] sultana sent at 11/30/2019 6:38 PM EDT [...] on filedocumented in this encounter Care Teams Dock Builder Relationship Specialty Start Date End Date Lynne Ramos MD PCP - General Internal Medicine 03/23/16 05/03/20 Eileen Aleman MD PCP - General Internal Medicine 05/04/20 09/14/21 [facility], Pcp PCP - General Internal Medicine 09/15/21 01/05/22 Lynne Ramos MD PCP - General Internal Medicine 01/06/22 Suzi Kelly PA-C Specialist Internal Medicine 01/06/22 Venancio Brown MD [address] [place] [address] Specialist Cardiovascular Disease 01/06/22 documented as of this encounter
--- OUTSIDE RECORDS SUMMARY | 2024-10-23 12:28 | XMS_ITS | Encounter Summary ---
Author Organization [facility] Address [address] [place] [address] Care Team Providers Care Mechanic Name Role Phone Lynne Ramos MD Primary Care Provider Eileen Diaz MD Primary Care Provider [facility], Pcp Primary Care Provider Lynne Seaman MD Primary Care Provider Suzi Anthony PA-C Unavailable Unavailable Venancio Brown MD Unavailable [phone] Reason for Visit * Reason Onset Date Comments E-prescribe Rx Request 03/05/2019 Colestipo l HCl 1 g Tab Encounter Details Date Type Department Care Team Description 03/05/2019 Refill Gastroenterology - [address] [address] Gary De Jesus MD [address] [place] [address] E-prescribe Rx Request (Colestipol HCl 1 g [...] Miscellaneous Notes * Telephone Encounter - [place] - 03/05/2019 1:19 PM EST Patient would [...] AETNA / Plan: POS $20/30 EL DENISE [id number] [facility] TRADITNAL / Product Type: POS [id number] documented in this encounter Plan of Treatment Not on file documented as of this encounter Visit Diagnoses Not on filedocumented in this encounter Care Teams Mechanic Relationship Specialty Start Date End Date Lynne Ramos MD PCP - General Internal Medicine 03/23/16 05/03/20 Elieen Aleman MD PCP - General Internal Medicine 05/04/20 09/14/21 [facility], Pcp PCP - General Internal Medicine 09/15/21 01/05/22 Lynne Ramos MD PCP - General Internal Medicine 01/06/22 Suzi Kelly PA-C Specialist Internal Medicine 01/06/22 Venancio Brown MD [address] [place] [address] Specialist Cardiovascular Disease 01/06/22 documented as of this encounter
--- OUTSIDE RECORDS SUMMARY | 2024-10-23 12:28 | XMS_ITS | Encounter Summary ---
Author Organization [facility] Address [address] [place] [address] Care Team Providers Care Adult Care Manager Name Role Phone Lynne Ramos MD Primary Care Provider Eileen Diaz MD Primary Care Provider [place] [facility], Pcp Primary Care Provider Lynne Seaman MD Primary Care Provider Suzi Anthony PA-C Unavailable Unavailable Venancio Brown MD Unavailable [phone] Encounter Details Date Type Department Care Team Description 08/28/2017 Release of Information Medical Records [address] [place] [address] Abstract, Provider Social History Tobacco Use Types [...] on filedocumented in this encounter Care Teams Adult Care Manager Relationship Specialty Start Date End Date Lynne Ramos MD PCP - General Internal Medicine 03/23/16 05/03/20 Eileen Aleman MD PCP - General Internal Medicine 05/04/20 09/14/21 [facility] PCP - General Internal Medicine 09/15/21 01/05/22 Lynne Ramos MD PCP - General Internal Medicine 01/06/22 Suzi Kelly PA-C Specialist Internal Medicine 01/06/22 Venancio Brown MD [address] [place] [address] Specialist Cardiovascular Disease 01/06/22 documented as of this encounter
--- OUTSIDE RECORDS SUMMARY | 2024-10-23 12:28 | XMS_ITS | Encounter Summary ---
Author Organization [facility] Address [address] [place] [address] Care Team Providers Care Bakery Manager Name Role Phone Lynne Ramos MD Primary Care Provider Eileen Diaz MD Primary Care Provider [facility], Pcp Primary Care Provider Lynne Seaman MD Primary Care Provider Suzi Anthony PA-C Unavailable Unavailable Venancio Brown MD Unavailable [phone] Encounter Details Date Type Department Care Team Description 02/12/2019 Orders Only Medicine/Pediatrics - [address] [address] Lynne Ramos MD Left flank pain (Primary [...] EXTERNAL - 02/12/2019 3:43 PM EST IMPRESSION: Normal renal ultrasound. Narrative [place] OTHER EXTERNAL - 02/12/2019 3:43 PM EST SONO RETROPERITONEAL LIMITED HISTORY: Left flank pain. Prior study: Abdominal ultrasound 09/20/2016. FINDINGS: The right kidney measures 11.8 cm in length. The left kidney measures 11.0 cm in length. Both kidneys demonstrate normal echotexture. No hydronephrosis, masses, calculi, or perinephric collections are [...] Lynne Ramos MD ULTRASOUND Performing Organization Address City/[facility] Co de Phone Number [facility] OTHER EXTERNAL * URINE, CULTURE (02/12/2019 12:43 PM EST) Urine (Urine) 02/12/2019 12: 43 PM EST 02/12/2019 12:43 PM EST Narrative DANIRuthie ARGUELLO - 02/13/2019 9:32 AM EST No growth Lynne Ramos MD LAB Performing Organization Address [facility]/ZIP Co de Phone Number [id number] documented in this encounter Visit Diagnoses Diagnosis Left flank pain- Primary Abdominal pain, unspecified site Left flank pain Abdominal pain, unspecified site documented in this encounter Care Teams Bakery Manager Relationship Specialty Start Date End Date Lynne Ramos MD PCP - General Internal Medicine 03/23/16 05/03/20 Eileen Aleman MD PCP - General Internal Medicine 05/04/20 09/14/21 [facility], Pcp PCP - General Internal Medicine 09/15/21 01/05/22 Lynne Ramos MD PCP - General Internal Medicine 01/06/22 Suzi Kelly PA-C Specialist Internal Medicine 01/06/22 Venancio Brown MD [address] [place] [address] Specialist Cardiovascular Disease 01/06/22 documented as of this encounter
--- OUTSIDE RECORDS SUMMARY | 2024-10-23 12:28 | XMS_ITS | Encounter Summary ---
Author Organization [facility] Address [address] [place] [address] Care Team Providers Care Scada Engineer Name Role Phone Lynne Ramos MD Primary Care Provider Eileen Diaz MD Primary Care Provider Spring cruz [facility], Pcp Primary Care Provider Lynne Seaman MD Primary Care Provider Suzi Anthony PA-C Unavailable Unavailable Venancio Brown MD Unavailable [phone] Encounter Details Date Type Department Care Team Description 10/04/2018 [facility] Medical Records [address] [place] [address] Abstract, Provider Social History Tobacco Use Types [...] on filedocumented in this encounter Care Teams Scada Engineer Relationship Specialty Start Date End Date Lynne Ramos MD PCP - General Internal Medicine 03/23/16 05/03/20 Eileen Aleman MD PCP - General Internal Medicine 05/04/20 09/14/21 [facility] PCP - General Internal Medicine 09/15/21 01/05/22 Lynne Ramos MD PCP - General Internal Medicine 01/06/22 Suzi Kelly PA-C Specialist Internal Medicine 01/06/22 Venancio Brown MD [address] [place] [address] Specialist Cardiovascular Disease 01/06/22 documented as of this encounter
--- OUTSIDE RECORDS SUMMARY | 2024-10-23 12:28 | XMS_ITS | Encounter Summary ---
Author Organization [facility] Address [address] [place] [address] Care Team Providers Care Zinc Plate Grainer Name Role Phone Lynne Ramos MD Primary Care Provider Eileen Diaz MD Primary Care Provider Spring cruz [facility], Pcp Primary Care Provider Lynne Seaman MD Primary Care Provider Suzi Anthony PA-C Unavailable Unavailable Venancio Brown MD Unavailable [phone] Encounter Details Date Type Department Care Team Description 01/11/2019 Orders Only Medicine/Pediatrics [address] [address] Lynne Ramos MD Social History Tobacco Use [...] on filedocumented in this encounter Care Teams Zinc Plate Grainer Relationship Specialty Start Date End Date Lynne Ramos MD PCP - General Internal Medicine 03/23/16 05/03/20 Eileen Aleman MD PCP - General Internal Medicine 05/04/20 09/14/21 [facility], Pcp PCP - General Internal Medicine 09/15/21 01/05/22 Lynne Ramos MD PCP - General Internal Medicine 01/06/22 Suzi Kelly PA-C Specialist Internal Medicine 01/06/22 Venancio Brown MD [address] [place] [address] Specialist Cardiovascular Disease 01/06/22 documented as of this encounter
--- OUTSIDE RECORDS SUMMARY | 2024-10-23 12:28 | XMS_ITS | Encounter Summary ---
Author Organization [facility] Address [address] [place] [address] Care Team Providers Care Spar Finisher Name Role Phone Eileen Aleman MD Primary Care Provider [facility], Pcp Primary Care Provider Lynne Seaman MD Primary Care Provider Suzi Anthony PA-C Unavailable Unavailable Venancio Brown MD Unavailable [phone] Encounter Details Date Type Department Care Team Description 06/30/2021 Pt. Non Urgent Medical Question [facility] [address] [place] [address] Edson Adam PA-C [address] [place] [address] Social History Tobacco Use Types Packs/Day Years [...] on filedocumented in this encounter Care Teams Spar Finisher Relationship Specialty Start Date End Date Eileen Aleman MD PCP - General Internal Medicine 05/04/20 09/14/21 [facility] PCP - General Internal Medicine 09/15/21 01/05/22 Lynne Ramos MD PCP - General Internal Medicine 01/06/22 Suzi Kelly PA-C Specialist Internal Medicine 01/06/22 Venancio Brown MD [address] [place] [address] Specialist Cardiovascular Disease 01/06/22 documented as of this encounter
--- OUTSIDE RECORDS SUMMARY | 2024-10-23 12:28 | XMS_ITS | Encounter Summary ---
Author Organization [facility] Address [address] [place] [address] Care Team Providers Care Ladle Repairman Name Role Phone Lynne Ramos MD Primary Care Provider Eileen Diaz MD Primary Care Provider Spring cruz [facility], Pcp Primary Care Provider Lynne Seaman MD Primary Care Provider Suzi Anthony PA-C Unavailable Unavailable Venancio Brown MD Unavailable [phone] Encounter Details Date Type Department Care Team Description 07/24/2018 Orders Only Medicine/Pediatrics [address] [address] Lynne Ramos MD Social History Tobacco Use [...] on filedocumented in this encounter Care Teams Ladle Repairman Relationship Specialty Start Date End Date Lynne Ramos MD PCP - General Internal Medicine 03/23/16 05/03/20 Eileen Aleman MD PCP - General Internal Medicine 05/04/20 09/14/21 [facility], Pcp PCP - General Internal Medicine 09/15/21 01/05/22 Lynne Ramos MD PCP - General Internal Medicine 01/06/22 Suzi Kelly PA-C Specialist Internal Medicine 01/06/22 Venancio Brown MD [address] [place] [address] Specialist Cardiovascular Disease 01/06/22 documented as of this encounter
--- OUTSIDE RECORDS SUMMARY | 2024-10-23 12:28 | XMS_ITS | Encounter Summary ---
Author Organization [facility] Address [address] [place] [address] Care Team Providers Care Occupational Analyst Name Role Phone Lynne Ramos MD Primary Care Provider Elieen Diaz MD Primary Care Provider Spring cruz [facility], Pcp Primary Care Provider Lynne Seaman MD Primary Care Provider Suzi Anthony PA-C Unavailable Unavailable Venancio Brown MD Unavailable [phone] Encounter Details Date Type Department Care Team Description 09/13/2017 [facility] Medical Records [address] [place] [address] Abstract, Provider Social History Tobacco Use Types [...] on filedocumented in this encounter Care Teams Occupational Analyst Relationship Specialty Start Date End Date Lynne Ramos MD PCP - General Internal Medicine 03/23/16 05/03/20 Eileen Aleman MD PCP - General Internal Medicine 05/04/20 09/14/21 [facility] PCP - General Internal Medicine 09/15/21 01/05/22 Lynne Ramos MD PCP - General Internal Medicine 01/06/22 Suzi Kelly PA-C Specialist Internal Medicine 01/06/22 Venancio Brown MD [address] [place] [address] Specialist Cardiovascular Disease 01/06/22 documented as of this encounter
--- OUTSIDE RECORDS SUMMARY | 2024-10-23 12:28 | XMS_ITS | Encounter Summary ---
Author Organization [facility] Address [address] [place] [address] Care Team Providers Care Special Events Director Name Role Phone Lynne Ramos MD Primary Care Provider Eileen Diaz MD Primary Care Provider Spring cruz [facility], Pcp Primary Care Provider Lynne Seaman MD Primary Care Provider Suzi Anthony PA-C Unavailable Unavailable Venancio Brown MD Unavailable [phone] Encounter Details Date Type Department Care Team Description 03/23/2018 [facility] Medical Records [address] [place] [address] Abstract, Provider Social History Tobacco Use Types [...] on filedocumented in this encounter Care Teams Special Events Director Relationship Specialty Start Date End Date Lynne Ramos MD PCP - General Internal Medicine 03/23/16 05/03/20 Eileen Aleman MD PCP - General Internal Medicine 05/04/20 09/14/21 [facility], Pcp PCP - General Internal Medicine 09/15/21 01/05/22 Lynne Ramos MD PCP - General Internal Medicine 01/06/22 Suzi Kelly PA-C Specialist Internal Medicine 01/06/22 Venancio Brown MD [address] [place] [address] Specialist Cardiovascular Disease 01/06/22 documented as of this encounter
--- OUTSIDE RECORDS SUMMARY | 2024-10-23 12:28 | XMS_ITS | Encounter Summary ---
Author Organization [facility] Address [address] [place] [address] Care Team Providers Care Blue Split Trimmer Name Role Phone Lynne Ramos MD Primary Care Provider Eileen Diaz MD Primary Care Provider Spring cruz [facility], Pcp Primary Care Provider Lynne Seaman MD Primary Care Provider Suzi Anthony PA-C Unavailable Unavailable Venancio Brown MD Unavailable [phone] Encounter Details Date Type Department Care Team Description 01/09/2017 [facility] Medical Records [address] [place] [address] Social History Tobacco Use Types Packs/Day Years [...] on filedocumented in this encounter Care Teams Blue Split Trimmer Relationship Specialty Start Date End Date Lynne Ramos MD PCP - General Internal Medicine 03/23/16 05/03/20 Eileen Aleman MD PCP - General Internal Medicine 05/04/20 09/14/21 [facility], Pcp PCP - General Internal Medicine 09/15/21 01/05/22 Lynne Ramos MD PCP - General Internal Medicine 01/06/22 Suzi Kelly PA-C Specialist Internal Medicine 01/06/22 Venancio Brown MD [address] [place] [address] Specialist Cardiovascular Disease 01/06/22 documented as of this encounter
--- OUTSIDE RECORDS SUMMARY | 2024-10-23 12:28 | XMS_ITS | Encounter Summary ---
Author Organization [facility] Address [address] [place] [address] Care Team Providers Care Unix Manager Name Role Phone Lynne Ramos MD Primary Care Provider Eileen Diaz MD Primary Care Provider Spring cruz [facility], Pcp Primary Care Provider Lynne Seaman MD Primary Care Provider UnavailSuzi Guzman PA-C Unavailable Unavailable Venancio Brown MD Unavailable [phone] Encounter Details Date Type Department Care Team Description 05/25/2018 Orders Only Medicine/Pediatrics - [address] [address] Yasmine Shah PA-C Social History Tobacco Use [...] on filedocumented in this encounter Care Teams Unix Manager Relationship Specialty Start Date End Date Lynne Ramos MD PCP - General Internal Medicine 03/23/16 05/03/20 Eileen Aleman MD PCP - General Internal Medicine 05/04/20 09/14/21 [facility] PCP - General Internal Medicine 09/15/21 01/05/22 Lynne Ramos MD PCP - General Internal Medicine 01/06/22 Suzi Kelly PA-C Specialist Internal Medicine 01/06/22 Venancio Brown MD [address] [place] [address] Specialist Cardiovascular Disease 01/06/22 documented as of this encounter
--- OUTSIDE RECORDS SUMMARY | 2024-10-23 12:28 | XMS_ITS | Encounter Summary ---
Author Organization [facility] Address [address] [place] [address] Care Team Providers Care Plugman Name Role Phone Lynne Ramos MD Primary Care Provider Eileen Diaz MD Primary Care Provider [facility], Pcp Primary Care Provider Lynne Seaman MD Primary Care Provider Suzi Anthony PA-C Unavailable Unavailable Venancio Brown MD Unavailable [phone] Reason for Visit * Reason Onset Date Comments REFERRAL 03/25/2019 Encounter Details Date Type Department Care Team Description 03/25/2019 Telephone Medicine/Pediatrics - [address] [address] Lynne Ramos MD REFERRAL Social History Tobacco [...] on filedocumented in this encounter Care Teams Plugman Relationship Specialty Start Date End Date Lynne Ramos MD PCP - General Internal Medicine 03/23/16 05/03/20 Eileen Aleman MD PCP - General Internal Medicine 05/04/20 09/14/21 [facility] PCP - General Internal Medicine 09/15/21 01/05/22 Lynne Ramos MD PCP - General Internal Medicine 01/06/22 Suzi Kelly PA-C Specialist Internal Medicine 01/06/22 Venancio Brown MD [address] [place] [address] Specialist Cardiovascular Disease 01/06/22 documented as of this encounter
--- OUTSIDE RECORDS SUMMARY | 2024-10-23 12:28 | XMS_ITS | Encounter Summary ---
Author Organization [facility] Address [address] [place] [address] Care Team Providers Care Machine Adjuster Helper Name Role Phone Eileen Aleman MD Primary Care Provider [facility], Pcp Primary Care Provider Lynne Seaman MD Primary Care Provider Suzi Anthony PA-C Unavailable Unavailable Venancoi Brown MD Unavailable [phone] Encounter Details Date Type Department Care Team Description 04/25/2021 Refill Gastroenterology - [address] [place] [address] Gary De Jesus MD [address] [place] [address] [id number] Social History Tobacco Use Types Packs/Day Years [...] malabsorption documented in this encounter Care Teams Machine Adjuster Helper Relationship Specialty Start Date End Date Eileen Aleman MD PCP - General Internal Medicine 05/04/20 09/14/21 [facility] Pcp PCP - General Internal Medicine 09/15/21 01/05/22 Lynne Ramos MD PCP - General Internal Medicine 01/06/22 Suzi Kelly PA-C Specialist Internal Medicine 01/06/22 Venancio Brown MD [address] [place] [address] Specialist Cardiovascular Disease 01/06/22 documented as of this encounter
--- OUTSIDE RECORDS SUMMARY | 2024-10-23 12:28 | XMS_ITS | Encounter Summary ---
Author Organization [facility] Address [address] [place] [address] Care Team Providers Care Fuel Manager Name Role Phone Lynne Ramos MD Primary Care Provider Eileen Diaz MD Primary Care Provider Spring cruz [facility], Pcp Primary Care Provider Lynne Seaman MD Primary Care Provider Suzi Anthony PA-C Unavailable Unavailable Venancio Brown MD Unavailable Encounter Details Date Type Department Care Team Description 04/08/2020 Orders Only Medicine/Pediatrics - [address] [address] Lynne Ramos MD Social History Tobacco Use [...] on filedocumented in this encounter Care Teams Fuel Manager Relationship Specialty Start Date End Date Lynne Ramos MD PCP - General Internal Medicine 03/23/16 05/03/20 Eileen Aleman MD PCP - General Internal Medicine 05/04/20 09/14/21 [facility], Pcp PCP - General Internal Medicine 09/15/21 01/05/22 Lynne Ramos MD PCP - General Internal Medicine 01/06/22 Suzi Kelly PA-C Specialist Internal Medicine 01/06/22 Venancio Brown MD [address] [place] [address] Specialist Cardiovascular Disease 01/06/22 documented as of this encounter
--- OUTSIDE RECORDS SUMMARY | 2024-10-23 12:28 | XMS_ITS | Encounter Summary ---
Author Organization [facility] Address [address] [place] [address] Care Team Providers Care Supervisor Cured Meats Name Role Phone Lynne Ramos MD Primary Care Provider Eileen Diaz MD Primary Care Provider [facility], Pcp Primary Care Provider Lynne Seaman MD Primary Care Provider Suzi Anthony PA-C Unavailable Unavailable Venancio Brown MD Unavailable [phone] Encounter Details Date Type Department Care Team Description 08/18/2016 Pt. Non Urgent Medical Question Medicine/Pediatrics - [address] [address] Lynne Ramos MD Social History Tobacco Use [...] I am just following up to the [employer] message I sent to Dr Jean 08/17 about med changes. Thanks documented in this encounter Plan of Treatment Not on file documented as of this encounter Visit Diagnoses Not on filedocumented in this encounter Care Teams Supervisor Cured Meats Relationship Specialty Start Date End Date Lynne Ramos MD PCP - General Internal Medicine 03/23/16 05/03/20 Eileen Aleman MD PCP - General Internal Medicine 05/04/20 09/14/21 [facility] PCP - General Internal Medicine 09/15/21 01/05/22 Lynne Ramos MD PCP - General Internal Medicine 01/06/22 Suzi Kelly PA-C Specialist Internal Medicine 01/06/22 Venancio Brown MD [address] [place] [address] Specialist Cardiovascular Disease 01/06/22 documented as of this encounter
--- OUTSIDE RECORDS SUMMARY | 2024-10-23 12:28 | XMS_ITS | Encounter Summary ---
Author Organization [facility] Address [address] [place] [address] Care Team Providers Care Lead Neurodiagnostic Technologist Name Role Phone Lynne Ramos MD Primary Care Provider Eileen Diaz MD Primary Care Provider [facility], Pcp Primary Care Provider Lynne Seaman MD Primary Care Provider Suzi Anthony PA-C Unavailable Unavailable Venancio Brown MD Unavailable [phone] Encounter Details Date Type Department Care Team Description 11/15/2019 Orders Only Medicine/Pediatrics [address] [address] Lynne Ramos MD Social History Tobacco Use [...] on filedocumented in this encounter Care Teams Lead Neurodiagnostic Technologist Relationship Specialty Start Date End Date Lynne Ramos MD PCP - General Internal Medicine 03/23/16 05/03/20 Eileen Aleman MD PCP - General Internal Medicine 05/04/20 09/14/21 [facility], Pcp PCP - General Internal Medicine 09/15/21 01/05/22 Lynne Ramos MD PCP - General Internal Medicine 01/06/22 Suzi Kelly PA-C Specialist Internal Medicine 01/06/22 Venancio Brown MD [address] [place] [address] Specialist Cardiovascular Disease 01/06/22 documented as of this encounter
--- OUTSIDE RECORDS SUMMARY | 2024-10-23 12:28 | XMS_ITS | Encounter Summary ---
Author Organization [facility] Address [address] [place] [address] Care Team Providers Care Election Watcher Name Role Phone Eileen Aleman MD Primary Care Provider [facility], Pcp Primary Care Provider Lynne Seaman MD Primary Care Provider Suzi Anthony PA-C Unavailable Unavailable Venancio Brown MD Unavailable [phone] Encounter Details Date Type Department Care Team Description 08/19/2021 [facility] Medical Records [address] [place] [address] Abstract, Provider Social History Tobacco Use Types [...] on filedocumented in this encounter Care Teams Election Watcher Relationship Specialty Start Date End Date Eileen Aleman MD PCP - General Internal Medicine 05/04/20 09/14/21 [facility], Pcp PCP - General Internal Medicine 09/15/21 01/05/22 Lynne Ramos MD PCP - General Internal Medicine 01/06/22 Suzi Kelly PA-C Specialist Internal Medicine 01/06/22 Venancio Brown MD [address] [place] [address] Specialist Cardiovascular Disease 01/06/22 documented as of this encounter
--- OUTSIDE RECORDS SUMMARY | 2024-10-23 12:28 | XMS_ITS | Encounter Summary ---
Author Organization [facility] Address [address] [place] [address] Care Team Providers Care Full Stack Java Developer Name Role Phone Lynne Ramos MD Primary Care Provider Eileen Diaz MD Primary Care Provider Spring cruz [facility], Pcp Primary Care Provider Lynne Seamna MD Primary Care Provider Suzi Anthony PA-C Unavailable Unavailable Venancio Brown MD Unavailable [phone] Encounter Details Date Type Department Care Team Description 08/13/2016 [facility] Medical Records [address] [place] [address] Mary Johnson MD [address] [place] [address] [address] [place] [address] Social History Tobacco Use Types Packs/Day Years [...] on filedocumented in this encounter Care Teams Full Stack Java Developer Relationship Specialty Start Date End Date Lynne Ramos MD PCP - General Internal Medicine 03/23/16 05/03/20 Eileen Aleman MD PCP - General Internal Medicine 05/04/20 09/14/21 [facility] Pcp PCP - General Internal Medicine 09/15/21 01/05/22 Lynne Ramos MD PCP - General Internal Medicine 01/06/22 Suzi Kelly PA-C Specialist Internal Medicine 01/06/22 Venancio Brown MD [address] [place] [address] Specialist Cardiovascular Disease 01/06/22 documented as of this encounter
--- OUTSIDE RECORDS SUMMARY | 2024-10-23 12:29 | XMS_ITS | Encounter Summary ---
Author Organization [facility] Address [address] [place] [address] Care Team Providers Care Nurse Anesthetist Name Role Phone Lynne Ramos MD Primary Care Provider Suzi Anthony PA-C Unavailable Unavailable Venancio Brown MD Unavailable [phone] Encounter Details Date Type Department Care Team Description 01/07/2022 [facility] Medical Records [address] [place], [place] [id number] [place] [address] Social History Tobacco Use Types Packs/Day Years [...] on filedocumented in this encounter Care Teams Nurse Anesthetist Relationship Specialty Start Date End Date Lynne Ramos MD PCP - General Internal Medicine 01/06/22 Suzi Kelly PA-C Specialist Internal Medicine 01/06/22 Venancio Brown MD [address] [place] [address] Specialist Cardiovascular Disease 01/06/22 documented as of this encounter
--- OUTSIDE RECORDS SUMMARY | 2024-10-23 12:29 | XMS_ITS | Encounter Summary ---
Author Organization [facility] Address [address] [place] [address] Care Team Providers Care Phone Triage Specialist Name Role Phone Lynne Ramos MD Primary Care Provider UnavailSuzi Guzman PA-C Unavailable Unavailable Venancio Brown MD Unavailable [phone] Encounter Details Date Type Department Care Team Description 08/22/2022 Commercial Agent Report Medical Records [address] [place] [address] Lynne Ramos MD Social History Tobacco Use [...] on filedocumented in this encounter Care Teams Phone Triage Specialist Relationship Specialty Start Date End Date Lynne Ramos MD PCP - General Internal Medicine 01/06/22 Suzi Kelly PA-C Specialist Internal Medicine 01/06/22 Venancio Brown MD [address] [place] [address] Specialist Cardiovascular Disease 01/06/22 documented as of this encounter
--- OUTSIDE RECORDS SUMMARY | 2024-10-23 12:29 | XMS_ITS | Encounter Summary ---
Author Organization [facility] Address [address] [place] [address] Care Team Providers Care Director Biostatistics Name Role Phone Lynne Ramos MD Primary Care Provider Suzi Anthony PA-C Unavailable Unavailable Venancio Brown MD Unavailable [phone] Encounter Details Date Type Department Care Team Description 03/02/2022 [facility] Records [facility] Medical [facility] [address] [facility] [address] [place] [address] Jimenez Sinclair MD [address] [facility] [address] [place], [place] [id number] Social History Tobacco Use Types Packs/Day Years [...] filedocumented in this encounter Care Teams Director Biostatistics Relationship Specialty Start Date End Date Lynne Ramos MD PCP - General Internal Medicine 01/06/22 Suzi Kelly PA-C Specialist Internal Medicine 01/06/22 Venancio Brown MD [address] [place] [address] Specialist Cardiovascular Disease 01/06/22 documented as of this encounter
--- OUTSIDE RECORDS SUMMARY | 2024-10-23 12:29 | XMS_ITS | Encounter Summary ---
Author Organization [facility] Address [address] [place] [address] Care Team Providers Care Twenty One Dealer Name Role Phone Lynne Ramos MD Primary Care Provider Eileen [place] MD Primary Care Provider [facility], Pcp Primary Care Provider Lynne Seaman MD Primary Care Provider Suzi Anthony PA-C Unavailable Unavailable Venancio Brown MD Unavailable [phone] Encounter Details Date Type Department Care Team Description 08/07/2019 [facility] Medical Records [address] [place] [address] Abstract, Provider Social History Tobacco Use Types [...] on filedocumented in this encounter Care Teams Twenty One Dealer Relationship Specialty Start Date End Date Lynne Ramos MD PCP - General Internal Medicine 03/23/16 05/03/20 Eileen Aleman MD PCP - General Internal Medicine 05/04/20 09/14/21 [facility] PCP - General Internal Medicine 09/15/21 01/05/22 Lynne Ramos MD PCP - General Internal Medicine 01/06/22 Suzi Kelly PA-C Specialist Internal Medicine 01/06/22 Venancio Brown MD [address] [place] [address] Specialist Cardiovascular Disease 01/06/22 documented as of this encounter
--- OUTSIDE RECORDS SUMMARY | 2024-10-23 12:29 | XMS_ITS | Clinical Summary ---
Author Organization [facility] Address [address] [place] [address] Care Team Providers Care General Dentist Name Role Phone Lynne Ramos MD Primary Care Provider Suzi Anthony PA-C Unavailable Unavailable Venancio Brown MD Unavailable [phone] Allergies Active Allergy Reactions Severity Noted Date [...] patient's history, symptoms may be related to [place]'s for which she is undergoing a work-up [...] Immunizations Name Administration Dates Next Due COVID-19 ([employer]) Pt Reported 03/29/2021, 021,01/26/2020 Hepatitis I-Fwpos-Tekxpadg + 08/23/2011 Influenza (> 6 Months) 11/23/2018 Influenza Vaccine-quadrivalent 4 Years Plus 10/08 Visljls-Oqwzo-Vkukiujv + 08/23/2011 Ymnxg-Xjmyu-Znvbubct + 08/23/2011 Quantiferon Tb Gold Neg 05/24/2017 Reexbza-Bolgf-Yiihzuhx + 08/23/2011 TD (STATE SUPPLIED FOR ADULTS [...] 92 09/02/2022 10:08 AM EDT Temperature 36.2 C (97.2 F) 09/02/2022 10:08 AM EDT Respiratory Rate 16 08/05/2022 2:57 PM EDT [...] BASELINE HEALTH EXAM 40-64 2017 MAMMOGRAM 2017 BMI CHECK/ADVISE 02/07/2024 08/26/2021, , 09/29/2020, Additional history exists Covid-19 Vaccine (2022-2 4 season) 2024 03/29/2021, 02/18/2020, 01/26/2020 INFLUENZA (#1) 2024 11/23/2018, 11/01/2016 CHOLESTEROL SCREENING 09/29/2025 09/29/2020 , 08/21/2020, 06/12/2020, Additional history exists CERVICAL CANCER SCREENING 08/26/2026 08/26/2021, DTAP/TDAP/TD (4 - Td or Tdap) 10/21/2029, 07/16/2018, 08/23/2011 Insurance Payer Benefit Plan / Group Subscriber ID Effective Dates Phone Address Type AETNA POS $20/30 RUPERTO MACIEL [id number] THNE TRADITNAL [id number] 2018-Prese nt [address] [place] [phone] POS [id number] [place]ICA[place] [id number] 2022-Pres ent [place] [address] [place] [address] MEDICAID [id number] ICE Care Teams General Dentist Relationship Specialty Start Date End Date Lynne Ramos MD PCP - General Internal Medicine 01/06/22 Suzi Kelly PA-C Specialist Internal Medicine 01/06/22 Venancio Brown MD [address] [facility] [address] [place] [address] Specialist Cardiovascular Disease 01/06/22
--- OUTSIDE RECORDS SUMMARY | 2024-10-23 12:29 | XMS_ITS | Encounter Summary ---
Author Organization [facility] Address [address] [place] [address] Care Team Providers Care Chief Lending Officer Name Role Phone Eileen Aleman MD Primary Care Provider [facility], Pcp Primary Care Provider Lynne Seaman MD Primary Care Provider Suzi Anthony PA-C Unavailable Unavailable Venancio Brown MD Unavailable [phone] Encounter Details Date Type Department Care Team Description 09/15/2020 Pt. Non Urgent Medic al Question Medicine/Pediatrics - [address] [phone] Ary Norris PA-C [address] [place] [address] Social History Tobacco Use Types Packs/Day Years [...] encounter Miscellaneous Notes * Telephone Encounter - Adia Lizama M.A. - 09/15/2020 1:51 PM EDTFrom: Juan A Ferreira To: Lucas Melindaconstantino Sent: 09/15/2020 1:39 PM EDT Subject: Blood pressure Hi Ary, I wanted to give you today???s BP reading at the ecology professor office as we discussed. It was 132/90- I???m sure it???s because I???m stuck home! Juan A documented in this encounter Plan of Treatment Not on file documented as of this encounter Visit Diagnoses Not on filedocumented in this encounter Care Teams Chief Lending Officer Relationship Specialty Start Date End Date Eileen Aleman MD PCP - General Internal Medicine 05/04/20 09/14/21 [facility], Pcp PCP - General Internal Medicine 09/15/21 01/05/22 Lynne Ramos MD PCP - General Internal Medicine 01/06/22 Suzi Kelly PA-C Specialist Internal Medicine 01/06/22 Venancio Brown MD [address] [place] [address] Specialist Cardiovascular Disease 01/06/22 documented as of this encounter
--- OUTSIDE RECORDS SUMMARY | 2024-10-23 12:29 | XMS_ITS | Encounter Summary ---
Author Organization [facility] Address [address] [place] [address] Care Team Providers Care Spectral Scientist Name Role Phone Lynne Ramos MD Primary Care Provider Suzi Anthony PA-C Unavailable Unavailable Venancio Brown MD Unavailable [phone] Reason for Visit * Reason Comments E-prescribe Rx Request Encounter Details Date Type Department Care Team Description 09/05/2023 Refill OBGYN - [place] [address] [place] [address] Wesley Riddle DO E-prescribe Rx Request Social [...] EDT WHEN WAS THE PATIENTS LAST ANNUAL LABORER CARPENTRY DOCK EXAM? 08/26/21 Does patient have an upcoming [...] AETNA / Plan: POS $ RUPERTO MACIEL [id number] JENA TRADITNAL / Product Type: POS [id number] documented in this encounter Plan of Treatment Not on file documented as of this encounter Visit Diagnoses Not on filedocumented in this encounter Care Teams Spectral Scientist Relationship Specialty Start Date End Date Lynne Ramos MD PCP - General Internal Medicine 01/06/22 Suzi Kelly PA-C Specialist Internal Medicine 01/06/22 Venancio Brown MD [address] [place] [address] Specialist Cardiovascular Disease 01/06/22 documented as of this encounter
--- OUTSIDE RECORDS SUMMARY | 2024-10-23 12:29 | XMS_ITS | Encounter Summary ---
Author Organization [facility] Address [address] [place] [address] Care Team Providers Care Anthropology Professor Name Role Phone Lynne Ramos MD Primary Care Provider Suzi Anthony PA-C Unavailable Unavailable Venancio Brown MD Unavailable [phone] Encounter Details Date Type Department Care Team Description 08/25/2022 [facility] Medical Records [address] [place] [address] Lynne Ramos MD Social History Tobacco Use [...] on filedocumented in this encounter Care Teams Anthropology Professor Relationship Specialty Start Date End Date Lynne Ramos MD PCP - General Internal Medicine 01/06/22 Suzi Kelly PA-C Specialist Internal Medicine 01/06/22 Venancio Brown MD [address] [place] [address] Specialist Cardiovascular Disease 01/06/22 documented as of this encounter
--- OUTSIDE RECORDS SUMMARY | 2024-10-23 12:29 | XMS_ITS | Encounter Summary ---
Author Organization [facility] Address [address] [place] [address] Care Team Providers Care Nursing Surgical Services Director Name Role Phone Lynne Ramos MD Primary Care Provider Suzi Anthony PA-C Unavailable Unavailable Venanico Brown MD Unavailable [phone] Encounter Details Date Type Department Care Team Description 01/06/2022 [facility] Medical Records [address] [place] [id number] Abstract, Provider Social History Tobacco Use Types [...] on filedocumented in this encounter Care Teams Nursing Surgical Services Director Relationship Specialty Start Date End Date Lynne Ramos MD PCP - General Internal Medicine 01/06/22 Suzi Kelly PA-C Specialist Internal Medicine 01/06/22 Venancio Brown MD [address] [place] [address] Specialist Cardiovascular Disease 01/06/22 documented as of this encounter
--- OUTSIDE RECORDS SUMMARY | 2024-10-23 12:29 | XMS_ITS | Encounter Summary ---
Author Organization [facility] Address [address] [place] [address] Care Team Providers Care Data Security Administrator Name Role Phone Lynne Ramos MD Primary Care Provider Suzi Anthony PA-C Unavailable Unavailable Venancio Brown MD Unavailable [phone] Encounter Details Date Type Department Care Team Description 06/14/2022 Refill Gastroenterology - [place] [address] [facility] [address] [place] [phone] Gary De Jesus MD [address] [place] [address] Social History Tobacco Use Types Packs/Day Years [...] on filedocumented in this encounter Care Teams Data Security Administrator Relationship Specialty Start Date End Date Lynne Ramos MD PCP - General Internal Medicine 01/06/22 Suzi Kelly PA-C Specialist Internal Medicine 01/06/22 Venancio Brown MD [address] [place] [address] Specialist Cardiovascular Disease 01/06/22 documented as of this encounter
--- OUTSIDE RECORDS SUMMARY | 2024-10-23 12:29 | XMS_ITS | Encounter Summary ---
Author Organization [facility] Address [address] [place] [address] Care Team Providers Care Healthcare Network Pricing Consultant Name Role Phone Lynne Ramos MD Primary Care Provider Eileen Diaz MD Primary Care Provider [facility], Pcp Primary Care Provider Lynne Seaman MD Primary Care Provider Suzi Anthony PA-C Unavailable Unavailable Venancio Brown MD Unavailable Encounter Details Date Type Department Care Team Description 06/25/2019 [facility] Medical Records [address] [place] [address] Abstract, Provider Social History Tobacco Use Types [...] on filedocumented in this encounter Care Teams Healthcare Network Pricing Consultant Relationship Specialty Start Date End Date Lynne Ramos MD PCP - General Internal Medicine 03/23/16 05/03/20 Eileen Aleman MD PCP - General Internal Medicine 05/04/20 09/14/21 [facility] PCP - General Internal Medicine 09/15/21 01/05/22 Lynne Ramos MD PCP - General Internal Medicine 01/06/22 Suzi Kelly PA-C Specialist Internal Medicine 01/06/22 Venancio Brown MD [address] [place] [address] Specialist Cardiovascular Disease 01/06/22 documented as of this encounter
--- OUTSIDE RECORDS SUMMARY | 2024-10-23 12:29 | XMS_ITS | Encounter Summary ---
Author Organization [facility] Address [address] [place] [address] Care Team Providers Care Turn Down Worker Name Role Phone Eileen Aleman MD Primary Care Provider [facility], Pcp Primary Care Provider Lynne Seaman MD Primary Care Provider Suzi Anthony PA-C Unavailable Unavailable Venancio Brown MD Unavailable [phone] Reason for Visit * Reason Comments E-prescribe Rx Request Encounter Details Date Type Department Care Team Description 09/13/2020 Refill General Surgery - [place] [address] [facility] [address] [place] [phone] Marian Britton MD [address] [facility] [place] [address] [place] [phone] E-prescribe Rx Request Social History Tobacco [...] on filedocumented in this encounter Care Teams Turn Down Worker Relationship Specialty Start Date End Date Eileen Aleman MD PCP - General Internal Medicine 05/04/20 09/14/21 [facility] Pcp PCP - General Internal Medicine 09/15/21 01/05/22 Lynne Ramos MD PCP - General Internal Medicine 01/06/22 Suzi Kelly PA-C Specialist Internal Medicine 01/06/22 Venancio Brown MD [address] [place] [address] Specialist Cardiovascular Disease 01/06/22 documented as of this encounter
--- OUTSIDE RECORDS SUMMARY | 2024-10-23 12:29 | XMS_ITS | Encounter Summary ---
Author Organization [facility] Address [address] [place] [address] Care Team Providers Care Librarian Helper Name Role Phone [facility], Pcp Primary Care Provider Lynne Seaman MD Primary Care Provider Suzi Anthony PA-C Unavailable Unavailable Venancio Brown MD Unavailable Encounter Details Date Type Department Care Team Description 11/09/2021 [facility] Medical [facility] Neurosurgery [place] [address] [phone] Jimbo Galeano PA-C [address] [address] Social History Tobacco Use Types Packs/Day Years [...] on filedocumented in this encounter Care Teams Librarian Helper Relationship Specialty Start Date End Date [facility], Pcp PCP - General Internal Medicine 09/15/21 01/05/22 Lynne Ramos MD PCP - General Internal Medicine 01/06/22 Suzi Kelly PA-C Specialist Internal Medicine 01/06/22 Venancio Brown MD [address] [address] Specialist Cardiovascular Disease 01/06/22 documented as of this encounter
--- OUTSIDE RECORDS SUMMARY | 2024-10-23 12:29 | XMS_ITS | Encounter Summary ---
Author Organization [facility] Address [address] [place] [address] Care Team Providers Care Global Program Director Name Role Phone Eileen Aleman MD Primary Care Provider [facility], Pcp Primary Care Provider Lynne Seaman MD Primary Care Provider Suzi Anthony PA-C Unavailable Unavailable Venancio Brown MD Unavailable [phone] Encounter Details Date Type Department Care Team Description 08/19/2020 [facility] Medical Records [address] [place] [address] Abstract, Provider Social History Tobacco Use Types [...] on filedocumented in this encounter Care Teams Global Program Director Relationship Specialty Start Date End Date Eileen Aleman MD PCP - General Internal Medicine 05/04/20 09/14/21 [facility], Pcp PCP - General Internal Medicine 09/15/21 01/05/22 Lynne Ramos MD PCP - General Internal Medicine 01/06/22 Suzi Kelly PA-C Specialist Internal Medicine 01/06/22 Venancio Brown MD [address] [place] [address] Specialist Cardiovascular Disease 01/06/22 documented as of this encounter
--- OUTSIDE RECORDS SUMMARY | 2024-10-23 12:29 | XMS_ITS | Encounter Summary ---
Author Organization [facility] Address [address] [place] [address] Care Team Providers Care Supervising Producer Name Role Phone Lynne Ramos MD Primary Care Provider Suzi Anthony PA-C Unavailable Unavailable Venancio Brown MD Unavailable [phone] Encounter Details Date Type Department Care Team Description 09/01/2022 Refill Gastroenterology - [place] [address] [facility] [address] [place] [phone] Gary De Jesus MD [address] [place] [id number] Social History Tobacco Use Types Packs/Day Years [...] suspected to have Coronavirus/COVID-19? No / Unsure 09/02/2022 9:54 AM EDT documented as of this encounter Miscellaneous Notes * Telephone Encounter - Sarah De Jesus MD - 09/07/2022 6:26 AM EDT The patient should get new RX from her PCP. * Telephone Encounter - Sweetie Lo M.A. - 09/02/2022 10:25 AM EDT Vy - 06/26/2020 Nov - unknown documented in this encounter Plan of Treatment Not on file documented as of this encounter Visit Diagnoses Not on filedocumented in this encounter Care Teams Supervising Producer Relationship Specialty Start Date End Date Lynne Ramos MD PCP - General Internal Medicine 01/06/22 Suzi Kelly PA-C Specialist Internal Medicine 01/06/22 Venancio Brown MD [address] [place] [address] Specialist Cardiovascular Disease 01/06/22 documented as of this encounter
--- OUTSIDE RECORDS SUMMARY | 2024-10-23 12:29 | XMS_ITS | Encounter Summary ---
Author Organization [facility] Address [address] [place] [address] Care Team Providers Care Licensed Architect Name Role Phone Lynne Ramos MD Primary Care Provider Suzi Anthony PA-C Unavailable Unavailable Venancio Brown MD Unavailable [phone] Encounter Details Date Type Department Care Team Description 01/10/2022 [facility] Neurosurgery [place] [address] [phone] Jimbo Galeano PA-C [address] [address] Social History Tobacco Use Types Packs/Day Years [...] on filedocumented in this encounter Care Teams Licensed Architect Relationship Specialty Start Date End Date Lynne Ramos MD PCP - General Internal Medicine 01/06/22 Suzi Kelly PA-C Specialist Internal Medicine 01/06/22 Venancio Brown MD [address] [place] [address] Specialist Cardiovascular Disease 01/06/22 documented as of this encounter
--- OUTSIDE RECORDS SUMMARY | 2024-10-23 12:29 | XMS_ITS | Encounter Summary ---
Author Organization [facility] Address [address] [place] [address] Care Team Providers Care Building Services Technician Name Role Phone Lynne Ramos MD Primary Care Provider Eileen Diaz MD Primary Care Provider [facility], Pcp Primary Care Provider Lynne Seaman MD Primary Care Provider Suzi Anthony PA-C Unavailable Unavailable Venancio Brown MD Unavailable [phone] Encounter Details Date Type Department Care Team Description 02/05/2018 [facility] Medical Records [address] [place] [address] Abstract, Provider Social History Tobacco Use Types [...] on filedocumented in this encounter Care Teams Building Services Technician Relationship Specialty Start Date End Date Lynne Ramos MD PCP - General Internal Medicine 03/23/16 05/03/20 Eileen Aleman MD PCP - General Internal Medicine 05/04/20 09/14/21 [facility] PCP - General Internal Medicine 09/15/21 01/05/22 Lynne Ramos MD PCP - General Internal Medicine 01/06/22 Suzi Kelly PA-C Specialist Internal Medicine 01/06/22 Venancio Brown MD [address] [place] [address] Specialist Cardiovascular Disease 01/06/22 documented as of this encounter
--- OUTSIDE RECORDS SUMMARY | 2024-10-23 12:29 | XMS_ITS ---
Author Name [facility] Organization Unknown Care Team Organization Name Specialty Phone Email Start Date End Da te [facility] Edson Adam Primary Care 08/11/2022 [facility] ARYAN Primary Care 12/14/2021 09/25/2023
--- OUTSIDE RECORDS SUMMARY | 2024-10-23 12:29 | XMS_ITS | Encounter Summary ---
Author Organization [facility] Address [address] [place] [address] Care Team Providers Care Marketing Specialist Name Role Phone Lynne Ramos MD Primary Care Provider Eileen Diaz MD Primary Care Provider [place] [facility] [facility], Pcp Primary Care Provider Lynne Seaman MD Primary Care Provider Suzi Anthony PA-C Unavailable Unavailable Venancio Brown MD Unavailable [phone] Encounter Details Date Type Department Care Team Description 11/27/2017 [facility] Medical Records [address] [place] [address] Rosita Will MD Social History Tobacco Use [...] filedocumented in this encounter Care Teams Marketing Specialist Relationship Specialty Start Date End Date Lynne Ramos MD PCP - General Internal Medicine 03/23/16 05/03/20 Eileen Aleman MD PCP - General Internal Medicine 05/04/20 09/14/21 [facility] PCP - General Internal Medicine 09/15/21 01/05/22 Lynne Ramos MD PCP - General Internal Medicine 01/06/22 Suzi Kelly PA-C Specialist Internal Medicine 01/06/22 Venancio Brown MD [address] [place] [address] Specialist Cardiovascular Disease 01/06/22 documented as of this encounter
--- OUTSIDE RECORDS SUMMARY | 2024-10-23 12:29 | XMS_ITS | Encounter Summary ---
Author Organization [facility] Address [address] [place] [address] Care Team Providers Care Manager Integration Name Role Phone Eileen Aleman MD Primary Care Provider [facility], Pcp Primary Care Provider Lynne Seaman MD Primary Care Provider Suzi Anthony PA-C Unavailable Unavailable Venancio Brown MD Unavailable [phone] Encounter Details Date Type Department Care Team Description 09/08/2020 Orders Only Medicine/Pediatrics - [address] [phone] Ary Norris PA-C [address] [place] [address] Social History Tobacco Use Types Packs/Day Years [...] filedocumented in this encounter Care Teams Manager Integration Relationship Specialty Start Date End Date Eileen Aleman MD PCP - General Internal Medicine 05/04/20 09/14/21 [facility], Pcp PCP - General Internal Medicine 09/15/21 01/05/22 Lynne Ramos MD PCP - General Internal Medicine 01/06/22 Suzi Kelly PA-C Specialist Internal Medicine 01/06/22 Venancio Brown MD [address] [place] [address] Specialist Cardiovascular Disease 01/06/22 documented as of this encounter
--- OUTSIDE RECORDS SUMMARY | 2024-10-23 12:29 | XMS_ITS | Encounter Summary ---
Author Organization [facility] Address [address] [place] [address] Care Team Providers Care Environmental Management Specialist Name Role Phone Eileen Aleman MD Primary Care Provider [facility], Pcp Primary Care Provider Lynne Seaman MD Primary Care Provider Suzi Anthony PA-C Unavailable Unavailable Venancio Brown MD Unavailable [phone] Reason for Visit * Reason Onset Date Comments BP-Quality 09/02/2020 Encounter Details Date Type Department Care Team Description 09/02/2020 Telephone Medicine/Pediatrics - [address] [phone] Eileen Aleman MD BP-Quality Social History Tobacco [...] on filedocumented in this encounter Care Teams Environmental Management Specialist Relationship Specialty Start Date End Date Eileen Aleman MD PCP - General Internal Medicine 05/04/20 09/14/21 [facility] PCP - General Internal Medicine 09/15/21 01/05/22 Lynne Ramos MD PCP - General Internal Medicine 01/06/22 Suzi Kelly PA-C Specialist Internal Medicine 01/06/22 Venancio Brown MD [address] [place] [address] Specialist Cardiovascular Disease 01/06/22 documented as of this encounter
--- OUTSIDE RECORDS SUMMARY | 2024-10-23 12:29 | XMS_ITS | Encounter Summary ---
Author Organization [facility] Address [address] [place] [address] Care Team Providers Care Hand Button Splitter Name Role Phone Eileen Aleman MD Primary Care Provider [facility], Pcp Primary Care Provider Lynne Seaman MD Primary Care Provider Suzi Anthony PA-C Unavailable Unavailable Venancio Brown MD Unavailable [phone] Encounter Details Date Type Department Care Team Description 07/30/2020 [facility] Medical Records [address] [place] [id number] Abstract, Provider Social History Tobacco Use Types [...] on filedocumented in this encounter Care Teams Hand Button Splitter Relationship Specialty Start Date End Date Eileen Aleman MD PCP - General Internal Medicine 05/04/20 09/14/21 [facility], Pcp PCP - General Internal Medicine 09/15/21 01/05/22 Lynne Ramso MD PCP - General Internal Medicine 01/06/22 Suzi Kelly PA-C Specialist Internal Medicine 01/06/22 Venancio Brown MD [address] [place] [address] Specialist Cardiovascular Disease 01/06/22 documented as of this encounter
--- OUTSIDE RECORDS SUMMARY | 2024-10-23 12:29 | XMS_ITS | Encounter Summary ---
Author Organization [facility] Address [address] [place] [address] Care Team Providers Care Allergist Immunologist Name Role Phone Eileen Aleman MD Primary Care Provider [facility], Pcp Primary Care Provider Lynne Seaman MD Primary Care Provider Suzi Anthony PA-C Unavailable Unavailable Venancio Brown MD Unavailable [phone] Encounter Details Date Type Department Care Team Description 10/08/2020 Refill Medicine/Pediatrics - [address] [phone] Ary Norris PA-C [address] [place] [address] Social History Tobacco Use Types Packs/Day Years [...] 10 MG TABLET 20.0 5 KA O'M [id number] [facility] ([facility] 0/0 60.0 [place] 09/04/2020 1 09/03/2020 OXYCODONE HCL 5 MG TABLET 118.0 20 EL ARM [id number] [facility] (7657[facility] 0/0 44.25 [place] [place] 08/14/2020 1 08/13/2020 OXYCODONE HCL 5 MG TABLET 118.0 19 RE MOR [id number] [facility] (7657[facility] 0/0 46.58 [place] 08/14/2020 1 08/13/2020 DIAZEPAM 5 MG TABLET 84.0 28 RE MOR [id number] [facility] ([facility]657[place] 07/24/2020 1 07/24/2020 LORAZEPAM 0.5 MG TABLET 10.0 7 RE MOR [id number] [facility] ([facility]657[place] 07/15/2020 1 07/14/2020 OXYCODONE HCL 5 MG TABLET 118.0 20 CH MIL [id number] [facility] (7657[facility] 0/0 44.25 [place] [place] 06/15/2020 1 06/12/2020 OXYCODONE HCL 5 MG TABLET 112.0 19 CH MIL [id number] [facility] (7657) 0/0 44.21 [place] 06/12/2020 1 06/12/2020 DIAZEPAM 5 MG TABLET 84.0 28 CH MIL [id number] [facility] (7657[place] 0/[place] 05/08/2020 2 05/08/2020 OXYCODONE HCL 5 MG TABLET 112.0 19 TE SVA [id number] [facility] (7657) 0/0 44.21 [place] 04/18/2020 2 04/17/2020 OXYCODONE HCL 5 MG TABLET 70.0 12 SA O'S [id number] [facility] (7657) 0/0 43.75 [place]ME[place] 04/17/2020 2 04/17/2020 DIAZEPAM 5 MG TABLET 84.0 28 SA O'S [id number] [facility] (7657[place] 0/0 [place] Ins [place] documented in this encounter Plan of Treatment Not on file documented as of this encounter Visit Diagnoses Diagnosis DDD (degenerative disc disease), cervical Degeneration of cervical intervertebral disc documented in this encounter Care Teams Allergist Immunologist Relationship Specialty Start Date End Date Eileen Aleman MD PCP - General Internal Medicine 05/04/20 09/14/21 [facility], Pcp PCP - General Internal Medicine 09/15/21 01/05/22 Lynne Ramos MD PCP - General Internal Medicine 01/06/22 Suzi Kelly PA-C Specialist Internal Medicine 01/06/22 Venancio Brown MD [address] [place] [address] Specialist Cardiovascular Disease 01/06/22 documented as of this encounter
--- OUTSIDE RECORDS SUMMARY | 2024-10-23 12:29 | XMS_ITS | Encounter Summary ---
Author Organization [facility] Address [address] [place] [address] Care Team Providers Care Mannequin Mold Maker Name Role Phone Lynne Ramos MD Primary Care Provider UnavailSuzi Guzman PA-C Unavailable Unavailable Venancio Brown MD Unavailable Encounter Details Date Type Department Care Team Description 01/07/2022 Release of Information Medical Records [address] [place] [id number] [place] [address] Social History Tobacco Use Types Packs/Day Years [...] on filedocumented in this encounter Care Teams Mannequin Mold Maker Relationship Specialty Start Date End Date Lynne Ramos MD PCP - General Internal Medicine 01/06/22 Suzi Kelly PA-C Specialist Internal Medicine 01/06/22 Venancio Brown MD [address] [place] [address] Specialist Cardiovascular Disease 01/06/22 documented as of this encounter
== END 2024-10-23 09:03 | disposition home or self-care (01) ==
LOC: HO.LNP 09:02
PROVIDERS: PCP Internal Medicine; Visit Provider Hospitalist
DX: I26.94 Multiple subsegmental thrombotic pulmonary emboli without acute cor pulmonale (principal); R06.02 Shortness of breath; J45.51 Severe persistent asthma with (acute) exacerbation; G47.33 Obstructive sleep apnea (adult) (pediatric); R91.1 Solitary pulmonary nodule; Z87.891 Personal history of nicotine dependence
CPT/HCPCS: 87070; 87205

== ENCOUNTER 2024-10-23 09:02 | Outpatient (AMB) | payer OTHER, SELFPAY ==
--- NOTE | 2024-10-23 09:04 | A.OFFVIS_ITS ---
Vital Signs 10/23/24 09:05 Height 5 ft 4 in Weight 277 lb 12.519 oz BMI 47.7 BP 124/80 Blood Pressure Location Lt brachial Position Sitting Pulse 72 Pulse Source Pulse Oximeter Pulse Oximetry (%) 98 Oxygen Delivery Method Room Air Intake Visit Reasons: Sick visit [employer] Required: No Accompanied by: Self / Same As Patient Allergies omeprazole Allergy (Mild, Verified 10/23/24 09:08) Rash Sulfa (Sulfonamide Antibiotics) Allergy (Unknown, Verified 10/23/24 09:08) Rash tramadol Allergy (Unknown, Verified 10/23/24 09:08) Rash venlafaxine (From Effexor) Allergy (Unknown, Verified 10/23/24 09:08) Rash HPI Comments Details: The patient is a 49 year woman with a known history of asthma who apparently was in her usual state health until sometime in January which started developing worsening respiratory complaints. She that she was having flu-like symptoms. Ultimately symptoms worsen. She started developing pleuritic chest discomfort. she had an evaluation in an x-ray sometime beginning of 02/26/2024 which I personally reviewed with some haziness in the right hemithorax but no overt airspace disease. Ultimately she developed worsening symptoms and she ended up going to the [facility] ER. There she did undergo a CTA demonstrating bilateral segmental and subsegmental PEs in addition to bilateral airspace disease and consolidations. She was admitted to the hospital placed on Xarelto and we given antibiotics overall she feels better from the respiratory complaints she was having. She did follow-up with Hematology and had a full hypercoagulable workup and she will be doing that soon. in addition to that an echocardiogram has been ordered. The patient understands and Xarelto will not be resolving the clots and that usually takes around 6-8 weeks to completely resolve. Therefore some point will have to follow-up with a repeat CT scan. The patient in the meantime having daytime drowsiness. Her Arlington score is elevated 11/24. Based on her significant lower extremity edema and cardiovascular risk factors we will go ahead and request a sleep study. During the visit we also underwent a 6 minute walk test the patient did well although she was tachycardic oxygen was stable 99% which is reassuring. During the exam she did have some wheezing on examination at this point will going to optimize her respiratory therapy. I do believe Nadirlaura is a good option for her but it was too expensive so we went ahead and start her on Wixela. 04/12/2024 the patient is here for a pulmonary follow-up visit. Since we last spoke the patient was exposed to RSV in her family. Then after she started developing worsening cough shortness breath chest tightness and now increased mucus production. Moderate severity. Having hard time sleeping. Has a raspy voice. Her sputum is greenish in color. We were able to get a sputum sample and send it to the laboratory. She does have wheezing on examination. She does not feel good. She continues in the anticoagulation. 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 She does have 2 daughters. One of her daughters does take estrogen for control and I did advise her to consider stopping her estrogen while she waits till we get tested. In the meantime she does have rhonchi wheezing on exam. May have I postviral bacterial lower respiratory infection. Will treated for pneumonia at this time. Will give her doxycycline Vantin she will need some prednisone. Although with her significant wheezing will give her Solu-Medrol today. The patient did have a CT scan last back in February the diagnosed with pulmonary emboli. She is going to bring a copy to download. She also had airspace disease. Will plan to repeat a CT scan in 4-6 weeks to address her thromboembolic disease and also the airspace disease. 04/25/2024 the patient is here for a pulmonary sick visit. She still not 100%. She had called because she was still feeling under the weather and center another course of prednisone 60 mg with taper and also a course of azithromycin. She is down to 50 mg of prednisone at this time. She is starting to feel better. We did check her oxygen again walking and she did well. Her exam significantly better without any significant wheezing or rhonchi or crackles. Although she still diminished. She will continue to stay out of work this week and then hopefully go to work starting Monday. She did bring a copy of her CT scan that she had when she had the PEs. The patient will also undergo a repeat CT scan sometime in June to follow up the resolution of the clots. She continues use her respiratory therapy with good effect. I do hope that she does a little better. Because of all the prednisone she is having hard time sleeping. Therefore she can use Ambien as needed for sleep. 06/17/2024 the patient is here for a pulmonary follow-up visit. Overall she is feeling better finally. The patient had been sick for several months. She is still having raspiness of the voice but she is significantly better. She has been noticing though increasing shortness of breath and lower extremity edema. She also had an elevated blood pressure. She did have increased salt intake over the weekend specially for mother's day weekend. She is going to take additional Lasix when she goes home. I did advise her for her to take up to 3 days. She continues on the Xarelto. We did look at her CT scan that she has had recently. It appears that all the pulmonary emboli have resolved. Although, she understands that she needs to stay on the blood thinner. The Xarelto is very expensive for her and does not only issue with it. She does not have any minor major bleeding with it. She is going to follow-up with her pairer. She does have a genetic distribution for clotting therefore I do recommend she stay on some anticoagulation. After the duration of therapy she can consider prophylactic Xarelto if that is a possibility for her. She will talk to the pairer. The patient also had an echocardiogram which is reassuring except for some diastolic dysfunction and some septal hypertrophy. We did talk about the importance of controlling the double product in order to minimize further hypertrophy of her muscle. Her CT scan also demonstrated increased cardiac size cardiomegaly most likely due to that. The patient did not have her sleep study. She continues to have significant sleep apnea with an elevated Arlington score. She has a reschedule it. She understands all these cardiovascular conditions are either worsen or results of the untreated sleep apnea. 08/16/2024 the patient is here for a pulmonary follow-up visit. She has been struggling with her breathing. Has had significant chest tightness wheezing and also raspiness of the voice. She was seen by Pulmonary recently and she was taken off the Wixela because of the raspiness of the voice. Although the breathing is not any better. She has significant chest tightness and wheezing. She also has significant allergies. She may be a good candidate for biologics. In the meantime will go ahead and switch her from a powdered inhaler 2 Breztri to help her with the bronchodilation. The patient does have asthma COPD overlap syndrome. The patient also did have a CT scan of the chest that was done June 2024 which I personally reviewed. The patient did have some atelectasis at the bases but otherwise reassuring CAT scan. She continues to have daytime drowsiness. Her Arlington score is elevated 24. Unfortunately she still has a reschedule her sleep study that she has not had yet. Therefore, will have her get some pulmonary function studies have her follow-up in 3 months the patient should get some blood work as well. We can talk about biologics further specially if she continues to be symptomatic during the next visit. 10/23/2024 the patient is here for sick visit. She has been having hard time with the breathing. Significant coughing chest congestion. Moderate to severe. She has a hard time sleeping. She has been on the Breztri inhaler with only minimal response. She is still waiting for her nebulizer. Her current nebulizers broken. The patient has been on multiple courses of prednisone. She was supposed to have blood work but she has not had his as of yet. We were able to get a sputum for culture sent to the lab. In the meantime we talked that if she continues to be symptomatic we can consider bronchoscopy for further evaluation of the airways. In the meantime though the patient will be started on nebulized therapy. Will switch her to nebulized medication such as Brovana and budesonide for better administration. Also will request an Acapella valve for CPT therapy and mucus clearance. The patient has been on multiple courses of prednisone. It appears that her allergy testing so only minimally abnormal without any significant eosinophils or significant IgE elevations. 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 She understands this is hard to treat. I do believe she will do well on Tezspire. Will go ahead and start the process to get her on the shot. In the meantime she has significant wheezing and I will send another course of prednisone. The patient also will get a new nebulizer in order for her to start her nebulized therapy. She will follow-up in couple weeks. If she has any worsening symptoms she can always call for further recommendations. She should have the blood work done. [facility] Medical History (Updated 10/23/24 @ 18:29 by Dago Gramajo MD) Allergy Restrictive lung disease Tracheobronchitis Pneumonia Asthma Vitamin D deficiency Right shoulder pain Non-infective diarrhea Mixed anxiety and depressive disorder Mild persistent asthma Hyperlipidemia Headache Cyst of nasopharynx Cobalamin deficiency Cervical radiculopathy Cerebral arterial aneurysm Body mass index 40.0-44.9, adult ADHD Family History Father Rheumatoid arthritis Other FH: mental illness Social History Household Members: Family Housing: House Alcohol intake: former Patient Tobacco Use Status: Former Tobacco user Cigarette Packs Per Day: 1 Years Smoked: 5 e-Cigarette/Vaping Use: Never Used Current occupational status: employed 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 Current occupational exposures/hazards: No Gender identity: Female Cognitive needs: No Hearing needs: No Vision needs: No Review of Systems Const Denies chills, Reports daytime sleepiness, Reports difficulty sleeping, Denies fatigue, Denies fever(s) and Reports snoring Eyes Reports no additional complaints ENT Denies dizziness and Reports hoarseness Card Denies chest pain, Reports leg edema, Denies lightheadedness, Denies palpitations, Reports dyspnea on exertion, Denies orthopnea and Denies other Resp Reports change in phlegm color, Reports chest congestion, Reports cough, Reports dyspnea on exertion, Reports snoring and Reports wheezing GI Denies hematochezia and Denies change in stool character Musc Denies abnormal gait, Denies muscle weakness, Denies numbness, Denies radiating pain into limb and Denies tingling Skin/Breast Denies rash Neuro Denies abnormal gait, Denies dizziness, Denies numbness and Denies tingling Endo Denies fatigue and Denies palpitations Amish/Lymph Reports no additional complaints Aller/Immun Reports wheezing Physical Exam Vital Signs: Last Vital Signs Pulse 72 10/23/24 09:05 BP 124/80 10/23/24 09:05 Pulse Ox 98 10/23/24 09:05 Oxygen Delivery Method Room Air 10/23/24 09:05 BMI result Body Mass Index 47.7 Const General: comfortable HEENT Head: Yes normocephalic Neck Neck: Yes supple Chest Chest palpation & inspection: normal inspection of the chest Resp Effort & Inspection: normal respiratory effort and prolonged expiratory phase Auscultation: wheezes and diminished lung sounds Cardio Heart sounds: S1 normal heart sound present and S2 normal heart sound present GI Palpation (GI): Soft to palpation Skin General skin exam: no rashes or lesions noted Extrem General: No clubbing, No cyanosis and Yes edema Assessment & Plan Assessment & Plan (1) Pulmonary embolism: Code(s): I26.99 - Other pulmonary embolism without acute cor pulmonale Category: Medical Qualifiers: Pulmonary embolism type: multiple subsegmental (without acute cor pulmonale) Qualified Code(s): I26.94 - Multiple subsegmental thrombotic pulmonary emboli without acute cor pulmonale (2) Shortness of breath: Code(s): R06.02 - Shortness of breath Category: Medical (3) Asthma: Code(s): J45.909 - Unspecified asthma, uncomplicated Category: Medical Qualifiers: Asthma complication type: with acute exacerbation Asthma persistence: persistent Asthma severity: severe Qualified Code(s): J45.51 - Severe persistent asthma with (acute) exacerbation (4) ROGELIO (obstructive sleep apnea): Code(s): G47.33 - Obstructive sleep apnea (adult) (pediatric) Category: Medical Plan start BUdesonide nebs BID start Brovana BID hold Breztri start Tezspire sputum cx ROMEO as needed continue Xorelto. Home PSG -awaiting to reschedule start Doxycycline ambien for sleep F/U 4-6 months Orders: Orders Sputum Cult + Gram stain Today R91.1 - Solitary pulmonary nodule Medications: New prednisone PO daily; Take 6 tabs daily x 3 days, then 5 tabs x 3 days, then 4 tabs x 3 days, then 3 tabs x 3 days, then 2 tabs daily x 3 days, then 1 tab x 3 days to complete. 63 tabs 0RF 18 days budesonide 0.5 mg (2 mL) inhalation BID 120 mL 11RF 30 days J44.9 - Chronic obstructive pulmonary disease, unspecified arformoterol (Brovana) 2 mL inhalation Q12H 120 mL 11RF 30 days J44.9 - Chronic obstructive pulmonary disease, unspecified Coding Level of Care Code Est Pt Level 4 (80452) Complex EM visit Add On G2211 Diagnoses Multiple subsegmental pulmonary emboli without acute cor pulmonale I26.94 Pulmonary embolism type: multiple subsegmental (without acute cor pulmonale) Shortness of breath R06.02 Severe persistent asthma with acute exacerbation J45.51 Asthma complication type: with acute exacerbation Asthma persistence: persistent Asthma severity: severe ROGELIO (obstructive sleep apnea) G47.33 Time Spent (min) 20
[2024-10-23 09:05] VITALS: BP 124/80; PULSE 72; O2SAT 98; BMI 47.7
--- OUTSIDE RECORDS SUMMARY | 2024-10-23 10:34 | XMS_ITS | Patient Health Record ---
Author Organization [facility] Address [address] [place] [address] Care Team Providers Care Residential Living Assistant Name Role Phone Lynne Jean Primary Care [...] Orally flora ry 12hrs as needed Active Adtprptppp-BKLY-Mzngvbwr 50-325-40 MG 1 tablet as needed Orally [...] Problem Status W/U Status Risk Notes Problem Equinus deformity of right foot (M21.6X1) Active confirmed Problem Plantarflexion deformity of left foot (finding) ([id number]) Equinus deformity of left foot (M21.6X2) Active [...] Date Coverage End Date [employer] [address] [address] [place] [address] [id number] Juan A Ferreira Self - patient is [...] History Surgery Date(Month/Year) Endometrial Polyp 2012 Historical 2008 Historical Neck Surgery-right C3-4 disce ctomy and fusion 2006 Laparoscopy, cholecystectomy 08/17/16 [place] Breast Reduction 2000 Remove tonsils adenoids, under 12 Total disc Arthrp Ant Apw/Discectomy CRV 2017
--- OUTSIDE RECORDS SUMMARY | 2024-10-23 10:35 | XMS_ITS | Clinical Summary ---
Author Organization [facility] Address [address] [place] [id number] Phone Care Team Providers Care Distribution Operation Supervisor Name Role Phone Lynne Ramos MD Primary Care Provider [phone] Allergies Active Allergy Reactions Criticality Noted Date Comments Sulfa (Sulfonamide Antibiotics) Rash High 02/17/2022 Tramadol Headaches 02/17/2022 Headaches, vomiting and hallucinations Venlafaxine Headaches High 02/17/2022 Headache and vomiting. Medications amLODIPine (NORVASC) 5 MG tablet Take 5 mg by mouth daily. Active losartan-hydroC HLOROthiazide (HYZAAR) 100-25 mg per tablet Take 1 tablet by mouth daily. Active norethindrone (MICRONOR) 0.35 mg tablet Take 1 tablet by mouth daily. Active buPROPion (WELLBUTRIN SR) 200 MG SR 12 hr tablet Take 200 mg by mouth 2 (two) times a day. Active colestipol (COLESTID) 1 gram tablet Take 1 g by mouth as directed. 1 g daily Monday-Monday , none over the weekend. Active fluticasone propionate (FLOVENT HFA) 110 mcg/actuation inhaler Inhale into the lungs 2 (two) times a day. Active ALBUTEROL INHL Inhale into the lungs. Active montelukast (SINGULAIR) 10 mg tablet Take 10 mg by mouth nightly at bedtime. Active diazePAM (VALIUM) 5 MG tablet Take 5 mg by mouth nightly at bedtime as needed for anxiety. Active oxyCODONE 5 MG immediate release tablet Take 5 mg by mouth nightly at bedtime. Active atorvastatin (LIPITOR) 20 MG tablet Take 20 mg by mouth daily. Active metoprolol tartrate (LOPRESSOR) 25 MG tablet Take 0.5 tablets (12.5 mg total) by mouth 2 (two) times a day. 60 tablet 3 03/10/2022 Active doxazosin (CARDURA) 2 MG tablet Take 2 tablets (4 mg total) by mouth nightly at bedtime. 60 tablet 3 03/10/2022 Active aspirin 81 MG EC tablet Take 81 mg by mouth daily. Active levothyroxine (SYNTHROID, LEVOTHROID) 50 MCG tablet Take 1 tablet (50 mcg total) by mouth daily. Take in the morning on an empty stomach without eating or drinking anything for 30 minutes. 90 tablet 11 09/03/2022 Active dexAMETHasone (DECADRON) 1 MG tablet Take 1 tablet (1 mg total) by mouth as directed. Take 1 tab at midnight, the night before the fasting morning blood test 1 tablet 07/12/2023 Active Family History Medical History Relation Comments Goiter Maternal Grandmother Thyroid cancer Nephew Medullary Relation Status Comments Maternal Grandmother Nephew Alive Social History Tobacco Use Types Packs/Day Years Used Date Smoking Tobacco: Former Cigarettes 1 6 2 000 - 2006 Smokeless Tobacco: Never Tobacco Cessation:Counseling Given: Not Answered Alcohol Use Standard Drinks/Week Comments Not Currently 0 (1 standard drink = 0.6 oz pur e alcohol) Education Answer Date Recorded Are you interested in more education? Not on brianna e 06/04/2022 Are you concerned about learning? Not on file 06/04/2022 No 06/04/2022 No 06/04/2022 Digital Access Answer Date Recorded No 07/05/2022 No 07/05/2022 Reliable internet access at home? Not on file 07/05/2022 Device with a working camera? Not on file Comments Unknown Sex and Gender Information Value Date Recorded Sex Assigned at Female 02/14/2022 10:58 AM EST Legal Sex Female 10:24 AM EST Gender Identity Female 02/14/2022 10:58 AM EST Sexual Orientation Straight 02/14/2022 10 :58 AM EST Last Filed Vital Signs Vital Sign Reading Time Taken Comments Blood Pressure 185/105 02/17/2022 12:26 PM EST Pulse 88 02/17/2022 12:26 PM EST Temperature - - Respiratory Rate - - Oxygen Saturation - - Inhaled Oxygen Concentration - - Weight 117.9 kg (260 lb) 02/17/2022 12:26 PM EST Height 162.6 cm (5' 4 ) 02/17/2022 12:26 PM EST Body Mass Index 44.63 02/17/2022 12:26 PM EST Plan of Treatment Health Maintenance Due Date Last Done Comments LIPID PANEL 1977 DEPRESSION SCREENING 1989 SMOKING Hx and SMOKELESS TOBACCO SCREENING 1990 HEPATITIS C SCREENING 04/30/1995 HIV ONE-TIME SCREENING (18-65 YEARS) 04/30/1995 PAP SMEAR 1998 MAMMOGRAM 2017 COLOGUARD 2022 COLONOSCOPY 2022 COLORECTAL CANCER SCREENING 2022 FIT TEST 2022 FOBT 2022 SIGMOIDOSCOPY 2022 VIRTUAL COLONOSCOPY 2022 POTASSIUM LEVEL 02/17/2023 02/17/2022 CREATININE LEVEL 03/05/2023 03/05/2022, 02/17/2022 INFLUENZA VACCINE (#1) 2024 11/23/2018, 2016 COVID-19 VACCINE ( season) 2024 03/29/2021, 03/29/2021, 02/18/2020, Additional history exists SCREENING FOR DIABETES 02/17/2025 02/17/2022 Adult Td,Tdap Booster 10/21/2029 10/22/2019 , 07/16/2018, 08/23/2011 HEPATITIS A VACCINES Aged Out No long er eligible based on patient's age to complete this topic HIB VACCINES Aged Out No longer eligi ble based on patient's age to complete this topic MENINGOCOCCAL VACCINES (ACWY) Aged Out No longer eligible based on patient's age to complete this topic MENINGOCOCCAL VACCINES (B) Aged Out N o longer eligible based on patient's age to complete this topic PNEUMOCOCCAL VACCINES (0-49 years) Aged Out No longer eligible based on patient's age to complete this topic Medical Devices Not on file Procedures Procedure Name Priority Date/Time Associated Diagnosis Comments CREATININE, 24 HR URINE Routine 03/05/2022 9:21 AM EST Pheochromocytoma, unspecified laterality BASIC METABOLIC PANEL Routine 02/17/2022 1:23 PM EST Pheochromocytoma, unspecified laterality from Last 3 Months or Most Recently Relevant to Health Maintenance Results * Creatinine, 24 hr urine (03/05/2022 9:21 AM EST) URINE CREATININE 96 mg/dL [facility] CREATININE OUTPUT 1,776 600 - 1,800 mg/total output [facility] Urine (Urine) 03/05/2022 9:2 1 AM EST 03/05/2022 9:23 AM EST Result Rose Marie Castro MD URINE ORDERABLES Final Res ult [facility] [address] [place] [address] * Basic metabolic panel (02/17/2022 1:23 PM EST) SODIUM 140 135 - 145 mmol/L [facility] POTASSIUM 3.7 3.4 - 5.0 mmol/L [facility] CHLORIDE 101 98 - 108 mmol/L [facility] CO2 27 23 - 32 mmol/L [facility] BUN 11 8 - 25 mg/dL [facility] CREATININE 0.94 0.60 - 1.50 mg/dL [facility] GLUCOSE 81 70 - 110 mg/dL [facility] CALCIUM 9.9 8.5 - 10.5 mg/dL [facility] EGFR 77 >59 mL/min/1.7 3m2 [facility] Comment:Estimated glomerular filtration rate calculated using the CKD-EPI refit equation. ANION GAP 12 3 - 17 mmol/L [facility] 02/17/2022 1:23 PM EST 02/17/2022 4:34 PM EST Result Rose Marie Castro MD LAB BLOOD ORDERABLES Final Result [address] [id number] from Last 3 Months or Most Recently Relevant to Health Maintenance Insurance [employer] NON [employer] PCP [employer] [address] [place] [address]ENSE NON NSPG PCP [employer] NON NSPG PCP [employer] NON NSPG PCP [place] NON NSPG PCP [employer] NON NSPG PCP [employer] Care Teams Distribution Operation Supervisor Relationship Specialty Start Date End Date Lynne Ramos MD PCP - General Internal Medicine 02/14/22 Additional Source Comments The information contained in this document represents components of the legal health record. It is not the complete legal health record.[facility]
--- OUTSIDE RECORDS SUMMARY | 2024-10-23 10:35 | XMS_ITS | Clinical Summary ---
Author Organization [facility] [address] [facility] Address [address] [place] [address] Phone Care Team Providers Care Reports Analysis Manager Name Role Phone Lynne Jean MD Primary Care Provider [phone] Allergies Active Allergy Reactions Criticality Noted Date [...] with dinner. 51 tablet 5 Active norethindrone (MAKEDA,Gary IRENE,MICRONOR ) 0.35 mg tablet Take 1 tablet (0.35 mg total) by mouth 1 (one) time each day. 84 tablet 5 5 12/24/19 26 Active Active Problems Problem Noted Date Diagnosed Date Pulmonary embolism ([facility] [place]24, [facility] V28) Anxiety and depression 12/26/2023 DDD (degenerative disc disease), cervical 2023 Deficiency of vitamin B12 12/26/2023 Hypertension 12/26/2023 Uterine polyp 12/26/2023 Vitamin D deficiency 12/26/2023 Morbid obesity with BMI of 4 0.0-44.9, adult ([facility] V24, [facility] V28) 12/26/2023 Abnormal EKG 01/07/2022 Elevated blood pressure reading 01/07/2022 Cervical radiculopathy 11/09/2021 Overview (12/26/2023): Last Assessment & Plan: Ms. Madrid describes about 8 days of neck pain [...] older (Afluria) 3 years and older 11/23/[address] SARS-CoV-2 COVID-19, mRNA, LNP-S, preservative free 03/29/2021,02/18/2020,01/26/2020 [...] TONSILLECTOMY ADENOIDECTOMY, BILATERAL MYRINGOTOMY AND TUBES PROCEDURE: MO TONSILLECTOMY & ADENOIDECTOMY <AGE 12 BREAST REDUCTION 2000 PROCEDURE: MO BREAST REDUCTION CHOLECYSTECTOMY 08/17/2016 PROCEDURE: MO LAPAROSCOPY SURG CHOLECYSTECTOMY; COMMENT: Laparoscopic cholecystectomy; [place]; Dr. Matos OTHER SURGICAL HISTORY PROCEDURE: TOTAL DISC ARTHRP ANT APW/DISCECTOMY CRV 3+; COMMENT: 2017 OTHER SURGICAL HISTORY PROCEDURE: MO ANESTHESIA CERVICAL SPINE & CORD NOS Medical [...] Care Team (Late st Contact Info) Description 05/01/2025 2:00 PM EDT Office Visit Obstetrics and Gynecology - [address] [id number] Angélica Mendoza, [facility] [address] [place] [address] Health Maintenance Due Date Last Done Comments Breast Cancer Screening 1977 Hepatitis B Vaccines (1 of 3 - 19+ 3-dose series) 1996 Pneumococcal Vaccine: Pediatrics (0 to 5 Years) and At-Risk Patients (6 to 49 Years) (1 of 2 - PCV) 1996 Colorectal Cancer Screening: Colonoscopy 03/08/2019 HIV Screening 03/08/2019 Hepatitis C Screening 03/08/2019 Social Influencers of Health Screening 03/08/2019 Depression Screening 02/07/2024 COVID-19 Vaccine ( season) 2024 09/10/2022, 03/29/2021, 02/18/2020, Additional history exists Influenza Vaccine (#1) 2024 , 11/23/2018, 11/01/2016 Cholesterol Screening (Lipid Panel) 09/29/2025 09/29/2020 Hypertension/CHF/CAD Annual BMP Blood Test 10/16/2025 10/16/2024, 02/29/2024, 02/24/2024, Additional history exists Cervical Cancer Screening: HPV 08/26/2026 08/26/2021 DTaP,Tdap,and [...] Date/Time Associated Diagnosis Comments BASIC METABOLIC PANEL Routine 10/16/2024 3:51 PM EDT [place] lesion Allergy Shortness of breath Moderate persistent asthma Multiple subsegmental pulmonary emboli without acute cor pulmonale (CMS/HCC V24, CMS/HCC V28) Unresolved pneumonia COMPLETE BLOOD COUNT Routine 10/16/2024 3:51 PM EDT [place] lesion Allergy Shortness of breath Moderate persistent asthma Multiple subsegmental pulmonary emboli without acute cor pulmonale (CMS/HCC V24, CMS/HCC V28) Unresolved pneumonia SEDIMENTATION RATE Routine 10/16/2024 3: 51 PM EDT [place] lesion Allergy Shortness of breath Moderate persistent asthma Multiple subsegmental pulmonary emboli without acute cor pulmonale (CMS/HCC V24, CMS/HCC V28) Unresolved pneumonia IMMUNOGLOBULIN IGE Routine 10/16/2024 3: 51 PM EDT [place] lesion Allergy Shortness of breath Moderate persistent asthma Multiple subsegmental pulmonary emboli without acute cor pulmonale (CMS/HCC V24, CMS/HCC V28) Unresolved pneumonia IMMUNOGLOBULIN IGA Routine 10/16/2024 3: 51 PM EDT [place] lesion Allergy Shortness of breath Moderate persistent asthma Multiple subsegmental pulmonary emboli without acute cor pulmonale (CMS/HCC V24, CMS/HCC V28) Unresolved pneumonia IMMUNOGLOBULIN IGG Routine 10/16/2024 3: 51 PM EDT [place] lesion Allergy Shortness of breath Moderate persistent asthma Multiple subsegmental pulmonary emboli without acute cor pulmonale (CMS/HCC V24, CMS/HCC V28) Unresolved pneumonia IMMUNOGLOBULIN IGM Routine 10/16/2024 3: 51 PM EDT [place] lesion Allergy Shortness of breath Moderate persistent asthma Multiple subsegmental pulmonary emboli without acute cor pulmonale (CMS/HCC V24, CMS/HCC V28) Unresolved pneumonia ALLERGEN RESPIRATORY PROFILE AREA 1 CT,MA,ME,NH,NJ,PA,RI,V T IGE Routine 10/16/2024 3:51 PM EDT [place] lesion Allergy Shortness of breath Moderate persistent asthma Multiple subsegmental pulmonary emboli without acute cor pulmonale (CMS/HCC V24, CMS/HCC V28) Unresolved pneumonia HM HPV Routine 08/26/2021 LIPID PANEL Routine 09/29/2020 from Last 3 Months or Most Recently Relevant to Health Maintenance Results * Allergen respiratory profile area 1 CT,MA,ME,NH,NJ,PA,RI,VT IgE (10/16/2024 3:51 PM EDT) Alternaria alternata, IgE <0.10 <0.10 kU/L 10/22/2024 8:03 AM EDT [facility] Alternaria alternata Class CLASS 0 10/22/2024 8:03 AM EDT [facility] Aspergillus fumigatus, IgE <0.10 <0.10 kU/L 10/22/2024 8:03 AM EDT [facility] Aspergillus fumigatus Class CLASS 0 10/22/2024 8:03 AM EDT [facility] Bermuda Grass, IgE <0.10 <0.10 kU/L 10/22/2024 8:03 AM EDT [facility] B[place]uda Grass Class CLASS 0 10/22 8:03 AM EDT [facility] Common Silver Birch, IgE <0.10 <0.10 kU/L 10/22/2024 8:03 AM EDT [facility] Common Silver Birch Class CLASS 0 10/22/2024 8:03 AM EDT [facility] Cat Dander, IgE <0.10 <0.10 kU/L 10/22/2024 8:03 AM EDT [facility] Cat Dander Class CLASS 0 10/23/19 8:03 AM EDT [facility] Cladosporium herbarum, IgE <0.10 <0.10 kU/L 10/22/2024 8:03 AM EDT [facility] Cladosporium herbarum Class CLASS 0 10/22/2024 8:03 AM EDT [facility] Cockroach, Macanese, IgE <0.10 <0.10 kU/L 10/22/2024 8:03 AM EDT [facility] Cockroach, Macanese Class CLASS 0 10/22/2024 8:03 AM EDT [facility] Starr, IgE <0.10 <0.10 kU/L 10/22/2024 8:03 AM EDT [facility] Starr Class CLASS 0 10/23/19 8:03 AM EDT [facility] Dermatophagoides farinae, IgE <0.10 <0.10 kU/L 10/22/2024 8:03 AM EDT [facility] Dermatophagoides farinae Class CLASS 0 10/22/2024 8:03 AM EDT [facility] Dermatophagoides pteronyssinus, IgE <0.10 <0.10 kU/L 10/22/2024 8:03 AM EDT [facility] Dermatophagoides pteronyssinus Class CLASS 0 10/22/2024 8:03 AM EDT [facility] Dog Dander, IgE <0.10 <0.10 kU/L 10/22/2024 8:03 AM EDT [facility] Dog Dander Class CLASS 0 10/23/19 8:03 AM EDT [facility] Elm, IgE <0.10 <0.10 kU/L 10/22/2024 8:03 AM EDT [facility] Elm Class CLASS 0 10/22/2024 8:03 AM EDT [facility] Maple (Carroll), IgE <0.10 <0.10 kU/L 10/22/2024 8:03 AM EDT [facility] Maple (Carroll) Class CLASS 0 10/22/2024 8:03 AM EDT [facility] Maple Irrigon Syc., Tovar Plane, IgE <0.10 <0.10 kU/L 10/22/2024 8:03 AM EDT [facility] Maple Irrigon Syc, Tovar Plane Class CLASS 0 10/22/2024 8:03 AM EDT [facility] Mountain Juniper, IgE <0.10 <0.10 kU/L 10/22/2024 8:03 AM EDT [facility] Mountain Juniper Class CLASS 0 10/22/2024 8:03 AM EDT [facility] Mouse Urine Proteins, IgE <0.10 <0.10 kU/L 10/22/2024 8:03 AM EDT [facility] Mouse Urine Proteins Class CLASS 0 10/22/2024 8:03 AM EDT [facility] Mugwort (sagebrush), IgE <0.10 <0.10 kU/L 10/22/2024 8:03 AM EDT [facility] Mugwort (sagebrush) Class CLASS 0 10/22/2024 8:03 AM EDT [facility] South Heart, IgE <0.10 <0.10 kU/L 10/22/2024 8:03 AM EDT [facility] South Heart Class CLASS 0 10/22/2024 8:03 AM EDT [facility] Follansbee, IgE <0.10 <0.10 kU/L 10/22/2024 8:03 AM EDT [facility] Follansbee Class CLASS 0 10/22/2024 8:03 AM EDT [facility] Penicillium chrysogenum, IgE <0.10 <0.10 kU/L 10/22/2024 8:03 AM EDT [facility] Penicillium chrysogenum Class CLASS 0 10/22/2024 8:03 AM EDT [facility] Common Pigweed, IgE <0.10 <0.10 kU/L 10/22/2024 8:03 AM EDT [facility] Common Pigweed Class CLASS 0 10/07 8:03 AM EDT [facility] Common Ragweed (short), IgE <0.10 <0.10 kU/L 10/22/2024 8:03 AM EDT [facility] Common Ragweed (short) Class CLASS 0 10/22/2024 8:03 AM EDT [facility] Sheep [place], IgE <0.10 <0.10 kU/L 10/22/2024 8:03 AM EDT [facility] Sheep [place] Class CLASS 0 2024 8:03 AM EDT [facility] Hipolito Grass, IgE <0.10 <0.10 kU/L 10/22/2024 8:03 AM EDT [facility] Hipolito Grass Class CLASS 0 10/22 8:03 AM EDT [facility] [place] Tree, IgE <0.10 <0.10 kU/L 10/22/2024 8:03 AM EDT [facility] [place] Tree Class CLASS 0 025 8:03 AM EDT [facility] White Aroldo, IgE <0.10 <0.10 kU/L 10/22/2024 8:03 AM EDT [facility] White Aroldo Class CLASS 0 8:03 AM EDT [facility] IgE 45.5 <114.0 IU/mL 10/22/2024 8:03 AM EDT [facility] Allergy Interpretation See Below 10/22/2024 8:03 AM EDT [facility] Comment: Level of Allergen CLASS kU/L Specific IgE Antibody ----- 0 <0.10 Undetectable 0/1 0.10 - 0.34 Very Low Level 1 0.35 - 0.69 Low Level 2 0.70 - 3.49 Moderate Level 3 3.50 - 17.4 High Level 4 17.5 - 49.9 Very High Level 5 50.0 - 100.0 Very High Level 6 >100.0 Very High Level Test performed at [facility], [address], [place] [address] Cathy Llanos MD, PhD - Salesman/Owner Blood Venous blood specimen / Unknown Venipuncture / Unknown 10/16/2024 3:51 PM EDT 10/16/2024 3:51 PM EDT us Dago Gramajo MD LAB BLOOD ORDERABLES Final Result [facility] [address] [place] [address] * (ABNORMAL) Sedimentation rate (10/16/2024 3:51 PM EDT) Sed Rate 45(H) 0 - 20 mm/hr LAB HEMETOLOGY METHOD 10/16/2024 7:20 PM EDT [facility] Blood Venous blood specimen / Unknown Venipuncture / Unknown 10/16/2024 3:51 PM EDT 10/16/2024 3:51 PM EDT us Dago Gramajo MD LAB BLOOD ORDERABLES Final Result Performing Organization Address [facility]/ZIP Co de Phone Number [facility] [address] [place] [address], [place] [phone] * (ABNORMAL) Complete blood count (10/16/2024 3:51 PM EDT) Pathologist [facility] WBC 7.8 4.8 - 10.8 K/mcL LAB HEMETOLOGY METHOD 10/16/2024 7:05 PM EDT [facility] RBC 4.70 3.80 - 4.80 M/mcL LAB HEMETOLOGY METHOD 10/16/2024 7:05 PM EDT [facility] Hemoglobin 13.4 11.5 - 16.0 g/dL LAB HEMETOLOGY METHOD 10/16/2024 7:05 PM EDT [facility] Hematocrit 42.3 35.0 - 47.0 % LAB HEMETOLOGY METHOD 10/16/2024 7:05 PM EDT [facility] MCV 89.2 79.0 - 98.0 FL LAB HEMETOLOGY METHOD 10/16[facility]24 [facility] MCH 28.3 27.0 - 32.0 pcg LAB HEMETOLOGY METHOD 10/16/2024 7:05 PM EDT [facility] MCHC 31.7(L) 32.0 - 37.0 g/dL LAB HEMETOLOGY METHOD 10/16/2024 7:05 PM EDT [facility] RDW 12.9 11.0 - 15.0 % LAB HEMETOLOGY METHOD 10/16/2024 7:05 PM EDT [facility] Platelets 365 130 - 400 K/mcL LAB HEMETOLOGY METHOD 10/16/2024 7:05 PM EDT [facility] MPV 10.1 7.0 - 11.0 FL LAB HEMETOLOGY METHOD 10/16/2024 7:05 PM EDT [facility] NRBC 0.0 <1.0 % LAB HEMETOLOGY METHOD 10/16/2024 7:05 PM EDT [facility] NRBC Absolute 0.00 <0.10 K/mcL LAB HEMETOLOGY METHOD 10/16/2024 7:05 PM EDT [facility] Blood Venous blood specimen / Unknown Venipuncture / Unknown 10/16/2024 3:51 PM EDT 10/16/2024 3:51 PM EDT Dago Gramajo MD LAB BLOOD ORDERABLES Final Result [facility] [address] [place] [address], * Immunoglobulin IgE (10/16/2024 3:51 PM EDT) IgE 48.4 0.0 - 158.0 I Unit/mL LAB CHEMISTRY METHOD 10/16/2024 9:24 PM EDT [facility] Blood Venous blood specimen / Unknown Venipuncture / Unknown 10/16/2024 3:51 PM EDT 10/16/2024 3:51 PM EDT us Dago Gramajo MD LAB BLOOD ORDERABLES Final Result Performing Organization Address City/[facility]/ZIP Co de Phone Number [facility] [address] [place] [address], [place] [phone] * Immunoglobulin IgA (10/16/2024 3:51 PM EDT) IgA 298 61 - 348 mg/dL LAB CHEMISTRY METHOD 10/16/2024 8:11 PM EDT [facility] Blood Venous blood specimen / Unknown Venipuncture / Unknown 10/16/2024 3:51 PM EDT 10/16/2024 3:51 PM EDT us Dago Gramajo MD LAB BLOOD ORDERABLES Final Result Performing Organization Address [facility]/ZIP Co de Phone Number [facility] [address] [place] [address], [place] [phone] * Immunoglobulin IgM (10/16/2024 3:51 PM EDT) Pathologist [facility] IgM 121 23 - 259 mg/dL LAB CHEMISTRY METHOD 10/16/2024 8:11 PM EDT [facility] Blood Venous blood specimen / Unknown Venipuncture / Unknown 10/16/2024 3:51 PM EDT 10/16/2024 3:51 PM EDT us Dago Gramajo MD LAB BLOOD ORDERABLES Final Result Performing Organization Address City/[facility]/ZIP Co de Phone Number [facility] [address] [place] [address], [place] [phone] * Immunoglobulin IgG (10/16/2024 3:51 PM EDT) Total IgG 1,240 549 - 1,584 mg/dL LAB CHEMISTRY METHOD 10/16/2024 8:11 PM EDT [facility] Blood Venous blood specimen / Unknown Venipuncture / Unknown 10/16/2024 3:51 PM EDT 10/16/2024 3:51 PM EDT us Dago Gramajo MD LAB BLOOD ORDERABLES Final Result [facility] [address] [place] [address], [place] [phone] * (ABNORMAL) Basic metabolic panel (10/16/2024 3:51 PM EDT) Sodium 136 133 - 145 mmol/L LAB CHEMISTRY METHOD 10/16/2024 8:11 PM [facility] Potassium 4.4 3.5 - 5.5 mmol/L LAB CHEMISTRY METHOD 10/16/2024 8:11 PM [facility] Chloride 104 96 - 110 mmol/L LAB CHEMISTRY METHOD 10/16/2024 8:11 PM [facility] CO2 27 21 - 32 mmol/L LAB CHEMISTRY METHOD 10/16/2024 8:11 PM [facility] Anion Gap 5 3 - 11 LAB CHEMISTRY METHOD 10/16/2024 8:11 PM [facility] Glucose 89 70 - 100 mg/dL LAB CHEMISTRY METHOD 10/16/2024 8:11 PM [facility] BUN 9 5 - 25 mg/dL LAB CHEMISTRY METHOD 10/16/2024 8:11 PM [facility] Creatinine 1.11(H) 0.50 - 1.10 mg/dL LAB CHEMISTRY METHOD 10/16/2024 8:11 PM [facility] eGFR 62 >=60 mL/min/1. 73m2 LAB CHEMISTRY METHOD 10/16/2024 8:11 PM [facility] Comment:Calculation based on the Chronic Kidney Disease Epidemiology Collaboration (CKD-EPI) equation refit without adjustment for race. BUN/Creatinine Ratio 8.1 LAB CHEMISTRY METHOD 10/16/2024 8:11 PM EDT [facility] Calcium 9.4 8.5 - 10.5 mg/dL LAB CHEMISTRY METHOD 10/16/2024 8:11 PM EDT [facility] Blood Venous blood specimen / Unknown Venipuncture / Unknown 10/16/2024 3:51 PM EDT 10/16/2024 3:51 PM EDT Dago Gramajo MD LAB BLOOD ORDERABLES Final Result [facility] [address] [place] [address], [place] [phone] * Cervical Cancer Screening: HPV (08/26/2021) Pathologist [facility] Cervical Cancer Screening: HPV abstracted, negative Zelalem Beck MD HEALTH MAINTENANCE Final Result * (ABNORMAL) Lipid panel (09/29/2020) [facility] LDL/HDL Ratio 3 0 - 4 Triglycerides 225(A) 0 - 150 mg/dL Cholesterol 154 0 - 200 mg/dL HDL 54 >=40 mg/dL LDL Cholesterol 55 0 - 100 mg/dL Blood Venous blood specimen / Unknown Historical [facility] BLOOD ORDERABLES Yue l Result from [...] currently active code status orders. Care Teams Reports Analysis Manager Relationship Specialty Start Date End Date Lynne Jean MD [address] [place] [id number] PCP - General Internal Medicine 05/28/24
== END 2024-10-23 09:53 | disposition home or self-care (01) ==
LOC: HO.HPS 09:02
PROVIDERS: PCP Internal Medicine; Visit Provider Hospitalist
DX: I26.94 Multiple subsegmental thrombotic pulmonary emboli without acute cor pulmonale (principal); R06.02 Shortness of breath; J45.51 Severe persistent asthma with (acute) exacerbation; G47.33 Obstructive sleep apnea (adult) (pediatric)
CPT/HCPCS: 99214; G2211

== ENCOUNTER 2024-11-08 14:11 | Outpatient (AMB) | payer OTHER, SELFPAY ==
[2024-11-08 14:13] VITALS: BP 124/76; PULSE 78; O2SAT 97; BMI 46.0
--- NOTE | 2024-11-08 14:13 | A.OFFVIS_ITS ---
Vital Signs 11/08/24 14:13 Height 5 ft 4 in Weight 267 lb 13.786 oz BMI 46.0 BP 124/76 Blood Pressure Location Lt brachial Position Sitting Pulse 78 Pulse Source Pulse Oximeter Pulse Oximetry (%) 97 Oxygen Delivery Method Room Air Intake Visit Reasons: Asthma Operating Room Tech Required: No Accompanied by: Self / Same As Patient Allergies omeprazole Allergy (Mild, Verified 11/08/24 14:16) Rash Sulfa (Sulfonamide Antibiotics) Allergy (Unknown, Verified 11/08/24 14:16) Rash tramadol Allergy (Unknown, Verified 11/08/24 14:16) Rash venlafaxine (From Effexor) Allergy (Unknown, Verified 11/08/24 14:16) Rash HPI Comments Details: The patient is a 49 year woman with a known history of asthma who apparently was in her usual state health until sometime in January which started developing worsening respiratory complaints. She that she was having flu-like symptoms. Ultimately symptoms worsen. She started developing pleuritic chest discomfort. she had an evaluation in an x-ray sometime beginning of 02/26/2024 which I personally reviewed with some haziness in the right hemithorax but no overt airspace disease. Ultimately she developed worsening symptoms and she ended up going to the [facility] ER. There she did undergo a CTA demonstrating bilateral segmental and subsegmental PEs in addition to bilateral airspace disease and consolidations. She was admitted to the hospital placed on Xarelto and we given antibiotics overall she feels better from the respiratory complaints she was having. She did follow-up with Hematology and had a full hypercoagulable workup and she will be doing that soon. in addition to that an echocardiogram has been ordered. The patient understands and Xarelto will not be resolving the clots and that usually takes around 6-8 weeks to completely resolve. Therefore some point will have to follow-up with a repeat CT scan. The patient in the meantime having daytime drowsiness. Her Louisburg score is elevated 11/24. Based on her significant lower extremity edema and cardiovascular risk factors we will go ahead and request a sleep study. During the visit we also underwent a 6 minute walk test the patient did well although she was tachycardic oxygen was stable 99% which is reassuring. During the exam she did have some wheezing on examination at this point will going to optimize her respiratory therapy. I do believe Trecalliegy is a good option for her but it was too expensive so we went ahead and start her on Wixela. 04/12/2024 the patient is here for a pulmonary follow-up visit. Since we last spoke the patient was exposed to RSV in her family. Then after she started developing worsening cough shortness breath chest tightness and now increased mucus production. Moderate severity. Having hard time sleeping. Has a raspy voice. Her sputum is greenish in color. We were able to get a sputum sample a nd send it to the laboratory. She does have wheezing on examination. She does not feel good. She continues in the anticoagulation. 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 She does have 2 daughters. One of her daughters does take estrogen for control and I did advise her to consider stopping her estrogen while she waits till we get tested. In the meantime she does have rhonchi wheezing on exam. May have I postviral bacterial lower respiratory infection. Will treated for pneumonia at this time. Will give her doxycycline Vantin she will need some prednisone. Although with her significant wheezing will give her Solu-Medrol today. The patient did have a CT scan last back in February the diagnosed with pulmonary emboli. She is going to bring a copy to download. She also had airspace disease. Will plan to repeat a CT scan in 4-6 weeks to address her thromboembolic disease and also the airspace disease. 04/25/2024 the patient is here for a pulmonary sick visit. She still not 100%. She had called because she was still feeling under the weather and center another course of prednisone 60 mg with taper and also a course of azithromycin. She is down to 50 mg of prednisone at this time. She is starting to feel better. We did check her oxygen again walking and she did well. Her exam significantly better without any significant wheezing or rhonchi or crackles. Although she still diminished. She will continue to stay out of work this week and then hopefully go to work starting Monday. She did bring a copy of her CT scan that she had when she had the PEs. The patient will also undergo a repeat CT scan sometime in June to follow up the resolution of the clots. She continues use her respiratory therapy with good effect. I do hope that she does a little better. Because of all the prednisone she is having hard time sleeping. Therefore she can use Ambien as needed for sleep. 06/17/2024 the patient is here for a pulmonary follow-up visit. Overall she is feeling better finally. The patient had been sick for several months. She is still having raspiness of the voice but she is significantly better. She has been noticing though increasing shortness of breath and lower extremity edema. She also had an elevated blood pressure. She did have increased salt intake ove r the weekend specially for mother's day weekend. She is going to take additional Lasix when she goes home. I did advise her for her to take up to 3 days. She continues on the Xarelto. We did look at her CT scan that she has had recently. It appears that all the pulmonary emboli have resolved. Although, she understands that she needs to stay on the blood thinner. The Xarelto is very expensive for her and does not only issue with it. She does not have any minor major bleeding with it. She is going to follow-up with her application support consultant. She does have a genetic distribution for clotting therefore I do recommend she stay on some anticoagulation. After the duration of therapy she can consider prophylactic Xarelto if that is a possibility for her. She will talk to the application support consultant. The patient also had an echocardiogram which is reassuring except for some diastolic dysfunction and some septal hypertrophy. We did talk about the importance of controlling the double product in order to minimize further hypertrophy of her muscle. Her CT scan also demonstrated increased cardiac size cardiomegaly most likely due to that. The patient did not have her sleep study. She continues to have significant sleep apnea with an elevated Louisburg score. She has a reschedule it. She understands all these cardiovascular conditions are either worsen or results of the untreated sleep apnea. 08/16/2024 the patient is here for a pulmonary follow-up visit. She has been struggling with her breathing. Has had significant chest tightness wheezing and also raspiness of the voice. She was seen by Pulmonary recently and she was taken off the Wixela because of the raspiness of the voice. Although the breathing is not any better. She has significant chest tightness and wheezing. She also has significant allergies. She may be a good candidate for biologics. In the meantime will go ahead and switch her from a powdered inhaler 2 Breztri to help her with the bronchodilation. The patient does have asthma COPD overlap syndrome. The patient also did have a CT scan of the chest that was done June 2024 which I personally reviewed. The patient did have some atelectasis at the bases but otherwise reassuring CAT scan. She continues to have daytime drowsiness. Her Louisburg score is elevated 12/30. Unfortunately she still has a reschedule her sleep study that she has not had yet. Therefore, will have her get some pulmonary function studies have her follow-up in 3 months the patient should get some blood work as well. We can talk about biologics further specially if she continues to be symptomatic during the next visit. 10/23/2024 the patient is here for sick visit. She has been having hard time with the breathing. Significant coughing chest congestion. Moderate to severe. She has a hard time sleeping. She has been on the Breztri inhaler with only minimal response. She is still waiting for her nebulizer. Her current nebulizers broken. The patient has been on multiple courses of prednisone. She was supposed to have blood work but she has not had his as of yet. We were able to get a sputum for culture sent to the lab. In the meantime we talked that if she continues to be symptomatic we can consider bronchoscopy for further evaluation of the airways. In the meantime though the patient will be started on nebulized therapy. Will switch her to nebulized medication such as Brovana and budesonide for better administration. Also will request an Acapella valve for CPT therapy and mucus clearance. The patient has been on multiple courses of prednisone. It appears that her allergy testing so only minimally abnormal without any significant eosinophils or significant IgE elevations. 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 She understands this is hard to treat. I do believe she will do well on Tezspire. Will go ahead and start the process to get her on the shot. In the meantime she has significant wheezing and I will send another course of prednisone. The patient also will get a new nebulizer in order for her to start her nebulized therapy. She will follow-up in couple weeks. If she has any worsening symptoms she can always call for further recommendations. She should have the blood work done. 11/08/2024 the patient is here for pulmonary follow-up visit. The patient overall has been doing fair. She is actually doing little bit better. She did start the test prior and she also started the Brovana and the budesonide nebs. She seems to be tolerating them well. She is still coughing she still needs cough medication. 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 She does have a lot of indoor plans because of her mother. She is going to try to move the plans to a place where she is not exposed to. She has a also be careful with working with outdoor plans as well. The patient also has a be careful with basement. She does have a running the humidifier. She is going to get an air purifier. Also needs to look for other places where she going to be exposed to mold including work related exposures. In the meantime she will continue with the current respiratory therapy says since effective in beneficial. We can always consider adding a long-acting muscarinic antagonist if she continues to have symptoms. The patient also has daytime drowsiness. She needs to undergo a sleep study. We still waiting for her to reschedule it. Hopefully when she starts feeling better she will do so. Will follow-up in 3-4 months if he has any issues prior to this she can always call for further recommendations. [facility] Medical History (Updated 10/23/24 @ 18:29 by Dago Gramajo MD) Allergy Restrictive lung disease Tracheobronchitis Pneumonia Asthma Vitamin D deficiency Right shoulder pain Non-infective diarrhea Mixed anxiety and depressive disorder Mild persistent asthma Hyperlipidemia Headache Cyst of nasopharynx Cobalamin deficiency Cervical radiculopathy Cerebral arterial aneurysm Body mass index 40.0-44.9, adult ADHD Family History Father Rheumatoid arthritis Other FH: mental illness Social History Household Members: Family Housing: House Alcohol intake: former Patient Tobacco Use Status: Former Tobacco user Cigarette Packs Per Day: 1 Years Smoked: 5 e-Cigarette/Vaping Use: Never Used Current occupational status: employed 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 Current occupational exposures/hazards: No Gender identity: Female Cognitive needs: No Hearing needs: No Vision needs: No Review of Systems Const Denies chills, Reports daytime sleepiness, Reports difficulty sleeping, Denies fatigue, Denies fever(s) and Reports snoring Eyes Reports no additional complaints ENT Denies dizziness and Reports hoarseness Card Denies chest pain, Reports leg edema, Denies lightheadedness, Denies palpitations, Reports dyspnea on exertion, Denies orthopnea and Denies other Resp Reports change in phlegm color, Reports chest congestion, Reports cough, Reports dyspnea on exertion, Reports snoring and Reports wheezing GI Denies hematochezia and Denies change in stool character Musc Denies abnormal gait, Denies muscle weakness, Denies numbness, Denies radiating pain into limb and Denies tingling Skin/Breast Denies rash Neuro Denies abnormal gait, Denies dizziness, Denies numbness and Denies tingling Endo Denies fatigue and Denies palpitations Amish/Lymph Reports no additional complaints Aller/Immun Reports wheezing Physical Exam Vital Signs: Last Vital Signs Pulse 78 11/08/24 14:13 BP 124/76 11/08/24 14:13 Pulse Ox 97 11/08/24 14:13 Oxygen Delivery Method Room Air 11/08/24 14:13 BMI result Body Mass Index 46.0 Const General: comfortable HEENT Head: Yes normocephalic Neck Neck: Yes supple Chest Chest palpation & inspection: normal inspection of the chest Resp Effort & Inspection: normal respiratory effort and prolonged expiratory phase Auscultation: wheezes and diminished lung sounds Cardio Heart sounds: S1 normal heart sound present and S2 normal heart sound present GI Palpation (GI): Soft to palpation Skin General skin exam: no rashes or lesions noted Extrem General: No clubbing, No cyanosis and Yes edema Assessment & Plan Assessment & Plan (1) Pulmonary embolism: Code(s): I26.99 - Other pulmonary embolism without acute cor pulmonale Category: Medical Qualifiers: Pulmonary embolism type: multiple subsegmental (without acute cor pulmonale) Qualified Code(s): I26.94 - Multiple subsegmental thrombotic pulmonary emboli without acute cor pulmonale (2) Shortness of breath: Code(s): R06.02 - Shortness of breath Category: Medical (3) Asthma: Code(s): J45.909 - Unspecified asthma, uncomplicated Category: Medical Qualifiers: Asthma complication type: with acute exacerbation Asthma persistence: persistent Asthma severity: severe Qualified Code(s): J45.51 - Severe persistent asthma with (acute) exacerbation (4) ROGELIO (obstructive sleep apnea): Code(s): G47.33 - Obstructive sleep apnea (adult) (pediatric) Category: Medical Plan BUdesonide nebs BID Brovana BID Tezspire ROMEO as needed continue Xorelto. Home PSG -awaiting to reschedule F/U 4-6 months Medications: Refilled codeine-guaifenesin 10-100 mg/5 mL 10 mL PO Q6H PRN 300 mL 0RF cough 10 days Coding Level of Care Code Est Pt Level 4 (78004) Complex EM visit Add On G2211 Diagnoses Multiple subsegmental pulmonary emboli without acute cor pulmonale I26.94 Pulmonary embolism type: multiple subsegmental (without acute cor pulmonale) Shortness of breath R06.02 Severe persistent asthma with acute exacerbation J45.51 Asthma complication type: with acute exacerbation Asthma persistence: persistent Asthma severity: severe ROGELIO (obstructive sleep apnea) G47.33 Time Spent (min) 16
--- OUTSIDE RECORDS SUMMARY | 2024-11-08 14:19 | XMS_ITS | Clinical Summary ---
Author Organization [facility] Address [address] [place] [id number] Phone Care Team Providers Care Philosophy Faculty Name Role Phone Lynne Ramos MD Primary Care Provider [phone] Allergies Active Allergy Reactions Criticality Noted Date [...] 9:21 AM EST) URINE CREATININE 96 mg/dL [facility] CREATININE OUTPUT 1,776 600 - 1,800 mg/total output [facility] Urine (Urine) 03/05/2022 9:2 1 AM EST 03/05/2022 9:23 AM EST Result Rose Marie Castro MD URINE ORDERABLES Final Res ult [facility] [address] [place] [address] * Basic metabolic panel (02/17/2022 1:23 PM EST) SODIUM 140 135 - 145 mmol/L [facility] POTASSIUM 3.7 3.4 - 5.0 mmol/L [facility] CHLORIDE 101 98 - 108 mmol/L [facility] CO2 27 23 - 32 mmol/L [facility] BUN 11 8 - 25 mg/dL [facility] CREATININE 0.94 0.60 - 1.50 mg/dL [facility] GLUCOSE 81 70 - 110 mg/dL [facility] CALCIUM 9.9 8.5 - 10.5 mg/dL [facility] EGFR 77 >59 mL/min/1.7 3m2 [facility] Comment:Estimated glomerular filtration rate calculated using the CKD-EPI refit equation. ANION GAP 12 3 - 17 mmol/L [facility] 02/17/2022 1:23 PM EST 02/17/2022 4:34 PM EST Result Rose Marie Castro MD LAB BLOOD ORDERABLES Final Result [address] [id number] from Last 3 Months or Most Recently Relevant to Health Maintenance Insurance [employer] NON NSPG PCP [employer] [address] [place] [address]ENSE NON NSPG PCP [employer] [employer] [facility] [employer] NON NSPG PCP [facility] [employer] [facility] [employer] NON NSPG PCP [facility] [employer] NON NSPG PCP [facility] NON NSPG PCP [facility] Care Teams Philosophy Faculty Relationship Specialty Start Date End Date Lynne Ramos MD PCP - General Internal Medicine 02/14/22 Additional Source Comments The information contained in this document represents components of the legal health record. It is not the complete legal health record.[facility]
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
== END 2024-11-08 14:42 | disposition home or self-care (01) ==
LOC: HO.HPS 14:11
PROVIDERS: PCP Internal Medicine; Visit Provider Hospitalist
DX: I26.94 Multiple subsegmental thrombotic pulmonary emboli without acute cor pulmonale (principal); R06.02 Shortness of breath; J45.51 Severe persistent asthma with (acute) exacerbation; G47.33 Obstructive sleep apnea (adult) (pediatric)
CPT/HCPCS: 99214; G2211

== ENCOUNTER 2024-12-09 15:24 | Outpatient (AMB) | payer OTHER, SELFPAY ==
--- NOTE | 2024-12-09 15:30 | MHC.PC.OV ---
Vital Signs 12/09/24 15:33 Height 5 ft 3.46 in Weight 258 lb 2 oz BMI 45.1 BP 122/88 Blood Pressure Location Rt brachial Position Sitting Respiration 16 Pulse 70 Pulse Source Pulse Oximeter Pulse Oximetry (%) 96 Oxygen Delivery Method Room Air Intake Visit Reasons: visit for zepbound denial Intake Note: Discuss Zepbound denial Yard Inspector Required: No Allergies omeprazole Allergy (Mild, Verified 11/08/24 14:16) Rash Sulfa (Sulfonamide Antibiotics) Allergy (Unknown, Verified 11/08/24 14:16) Rash tramadol Allergy (Unknown, Verified 11/08/24 14:16) Rash venlafaxine (From Effexor) Allergy (Unknown, Verified 11/08/24 14:16) Rash Tobacco use date assessed: 12/09/24 Dental Screening Dental Screen Date: 12/09/24 Did you have a dental visit in the last 12 months?: No Did you have a dental problem in the last 6 months where you did not have access to dental care?: No Was dental information given to patient?: Patient has dentist HPI HPI Comments History of Present Illness Details This is a 49 year old female with a past medical history of hypertension, anxiety & depression, ddd cervical spine, cerebral aneurysm, PE, presenting for follow up Resp-[facility] with [facility]. Slow improvement. shortness of breath still exacerbated by cold, heat, exertion. No fevers. [facility] ER last year-had CTA with PEs, bilateral lower lobe consolidations. Saw hematology. Had echo, saw cardiology MSK: bilateral upper extremity neuropathy. History of neck surgery. On oxycodone. Has had elevated ESR-23, CRP 9.6. Cortisol and TSH were normal. Cervical xray with postoperative changes anterior fusion hardware at C3-C4 and disc spacer at C4-C5. Partial fusion of C3 and C4 vertebral bodies. Unchanged approximately 0.3 cm anterolisthesis C4 on C5. Mild neuroforaminal narrowing at C4-C5 [id number]. Anxiety/Insomnia: stable on current medications CV: See below. On losartan, furosemide every other day, metoprolol, ASA, xarelto Presented in Jan 2023 with hypertensive urgency, headaches, tachycardia and tremor. 24 urine with elevated metanephrines. Seen by endocrinology Dr Dockery and [place] [facility] Patient has imaging with adrenal thickening. Empty sella on MRI brain. Has had intermittent elevation in metanephrines. Symptoms and striae concerning for hypercortisolism but labs have not revealed such. She is to repeat labs in 3 months. She continues to have intermittent issues with headaches, vision changes, weakness, striae, skin ulceration, palpitations, anxiety, variable BP. -Family history of medullary thyroid cancer. 1st cousin. Family history (sister) MGUS, mast cell disorder ROS see HPI PHYSICAL EXAM: GENERAL: Alert and oriented x 3. NAD EYES: EOMI. Anicteric. HENT: Moist mucous membranes. No scleral icterus. No cervical lymphadenopathy. LUNGS: Scattered wheeze CARDIOVASCULAR: Regular rate and rhythm. No murmur. No JVD. ABDOMEN: Soft, non-tender +bs EXTREMITIES: No edema. Non-tender. SKIN: Significant facial flusing NEUROLOGIC: No focal neurological deficits. CN II-XII grossly intact PSYCHIATRIC: Cooperative. Appropriate mood and affect ON LICENSE OF [facility] Medical History (Updated 10/23/24 @ 18:29 by Dago Gramajo MD) Allergy Restrictive lung disease Tracheobronchitis Pneumonia Asthma Vitamin D deficiency Right shoulder pain Non-infective diarrhea Mixed anxiety and depressive disorder Mild persistent asthma Hyperlipidemia Headache Cyst of nasopharynx Cobalamin deficiency Cervical radiculopathy Cerebral arterial aneurysm Body mass index 40.0-44.9, adult ADHD Family History Father Rheumatoid arthritis Other FH: mental illness Social History Household Members: Family Housing: House Alcohol intake: former Patient Tobacco Use Status: Former Tobacco user Cigarette Packs Per Day: 1 Years Smoked: 5 e-Cigarette/Vaping Use: Never Used Current occupational status: employed 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 Current occupational exposures/hazards: No Gender identity: Female Cognitive needs: No Hearing needs: No Vision needs: No Questionnaire Thrive Questionnaire Date Thrive assessed: 03/05/24 I am a: Patient What is your living situation today?: I have a steady place to live Within the past 12 months, did the food you bought not last and you didn't have the money to get more?: Never true Within the past 12 months, did you worry whether your food would run out before you got money to buy more?: Never true Do you have trouble paying for medicines?: No Do you have trouble getting transportation to medical appointments?: No Do you have trouble paying your heating and electricity bill?: No Do you have trouble taking care of your child, family member or friend?: No Do you have trouble with day-to-day activities such as bathing, preparing meals, shopping, managing finances, etc.?: I choose not to answer this question Are you currently unemployed and looking for a job?: No Are you interested in more education?: No Please select the resources that you would like help with: None Currently or been in a relationship where the following occur: No concerns reported THRIVE Score: 0 AUDIT C Alcohol Use Questionnaire (AUDIT-C) 1. How often do you have a drink containing alcohol?: Never 3. How often do you have six or more drinks on one occasion?: Never Total Score: 0 PILY-7 AMB Questionnaire PILY-7 Date PILY - 7 assessed: 03/05/24 Source: Developed by Drs. Efren Gonzalez, Monet Delgadillo, Juan Goldsmith and colleagues, with an educational lonnie from [employer]. Physical exam (Primary Care) Vital Signs: Last Vital Signs Pulse 70 12/09/24 15:33 Resp 16 12/09/24 15:33 BP 122/88 12/09/24 15:33 Pulse Ox 96 12/09/24 15:33 Oxygen Delivery Method Room Air 12/09/24 15:33 BMI result Body Mass Index 45.1 Tobacco/Smoking Status: Tobacco use Status Tobacco use date assessed 12/09/24 12/09/24 15:38 Patient Tobacco Use Status Former Tobacco user 12/09/24 15:32 e-Cigarette/Vaping Use Never Used 12/09/24 15:32 Thrive Assessment: Date of Thrive Assessment Date Thrive assessed 03/05/24 12/09/24 15:32 Currently or been in a relationship where the following occur: No concerns reported Coding Level of Care Code Est Pt Level 4 (37439) Complex EM visit Add On G2211 Diagnoses Tracheobronchitis J40 Degenerative disc disease, cervical M50.30 Body mass index 40.0-44.9, adult Z68.41 Primary hypertension I10 Hypertension type: primary hypertension Assessment & Plan Assessment & Plan (1) Tracheobronchitis: Comment: I think this patient's cough is secondary to irritation/ infection of the upper airways . Clinically I think she has tracheobronchitis. May have low-grade thrush . Code(s): J40 - Bronchitis, not specified as acute or chronic Category: Medical (2) Degenerative disc disease, cervical: Code(s): M50.30 - Other cervical disc degeneration, unspecified cervical region Category: Medical (3) Body mass index 40.0-44.9, adult: Code(s): Z68.41 - Body mass index [BMI] 40.0-44.9, adult Category: Medical (4) Hypertension: Code(s): I10 - Essential (primary) hypertension Category: Medical Qualifiers: Hypertension type: primary hypertension Qualified Code(s): I10 - Essential (primary) hypertension Plan Tracheobronchitis/restrictive lung disease/asthma-continue pulm follow up. Needs ongoing FMLA/disability allowances Chronic pain-stable on current medications. CSA in place Hypertension-adequately controlled on current medications Depression/anxiety-stable on current medications Paperwork completed Orders: Orders TSH reflex Free T4 12/09/24 I10 - Essential (primary) hypertension, R94.6 - Abnormal results of thyroid function studies Comprehensive Met. Panel 12/09/24 I10 - Essential (primary) hypertension, R94.6 - Abnormal results of thyroid function studies
[2024-12-09 15:33] VITALS: BP 122/88; PULSE 70; RESP 16; O2SAT 96; BMI 45.1
--- OUTSIDE RECORDS SUMMARY | 2024-12-09 16:39 | XMS_ITS | Clinical Summary ---
Author Organization [facility] [address] [facility] Address [address] [place] [address] Phone Care Team Providers Care Supervisor Shipping Name Role Phone Lynne Jean MD Primary Care Provider [phone] Allergies Active Allergy Reactions Criticality Noted Date [...] Problem Noted Date Diagnosed Date Pulmonary embolism ([facility] V[facility], [facility] V[facility]) Anxiety and depression 12/26/2023 DDD (degenerative disc disease), cervical 2023 Deficiency of vitamin B12 12/26/2023 Hypertension 12/26/2023 Uterine polyp 12/26/2023 Vitamin D deficiency 12/26/2023 Morbid obesity with BMI of 4 0.0-44.9, adult ([facility] V24, [facility] V[facility]) 12/26/2023 Abnormal EKG 01/07/2022 Elevated blood [...] older (Afluria) 3 years and older 11/23/2018 [employer] SARS-CoV-2 COVID-19, mRNA, LNP-S, preservative free 03/29/2021,02/18/2020,01/26/2020 [...] TONSILLECTOMY ADENOIDECTOMY, BILATERAL MYRINGOTOMY AND TUBES PROCEDURE: DE TONSILLECTOMY & ADENOIDECTOMY <AGE 12 BREAST REDUCTION 2000 PROCEDURE: DE BREAST REDUCTION CHOLECYSTECTOMY 08/17/2016 PROCEDURE: DE LAPAROSCOPY SURG CHOLECYSTECTOMY; COMMENT: Laparoscopic cholecystectomy; [place]; Dr. Matos OTHER SURGICAL HISTORY PROCEDURE: TOTAL DISC ARTHRP ANT APW/DISCECTOMY CRV 3+; COMMENT: 2017 OTHER SURGICAL HISTORY PROCEDURE: DE ANESTHESIA CERVICAL SPINE & CORD NOS Medical [...] EDT Office Visit Obstetrics and Gynecology - [address] [id number] Angélica Mendoza, ALEX [address] [place] [address] Health Maintenance Due Date Last Done Comments [...] METABOLIC PANEL Routine 10/16/2024 3:51 PM EDT [place] lesion Allergy Shortness of breath Moderate persistent asthma Multiple subsegmental pulmonary emboli without acute cor pulmonale (CMS/HCC V24, CMS/HCC V28) Unresolved pneumonia COMPLETE BLOOD COUNT Routine 10/16/2024 3:51 PM EDT [place] lesion Allergy Shortness of breath Moderate persistent asthma Multiple subsegmental pulmonary emboli without acute cor pulmonale (CMS/HCC V24, CMS/HCC V28) Unresolved pneumonia SEDIMENTATION RATE Routine 10/16/2024 3: 51 PM EDT [place] lesion Allergy Shortness of breath Moderate persistent asthma Multiple subsegmental pulmonary emboli without acute cor pulmonale (CMS/HCC V24, CMS/HCC V28) Unresolved pneumonia HYPERSENSITIVITY PNEUMONITIS EVALUATION Routine 10/16/2024 3:51 PM EDT [place] lesion Allergy Shortness of breath Moderate persistent asthma Multiple subsegmental pulmonary emboli without acute cor pulmonale (CMS/HCC V24, CMS/HCC V28) Unresolved pneumonia IMMUNOGLOBULIN IGE Routine 10/16/2024 3: 51 PM EDT [place] lesion Allergy Shortness of breath Moderate persistent asthma Multiple subsegmental pulmonary emboli without acute cor pulmonale (CMS/HCC V24, CMS/HCC V28) Unresolved pneumonia IMMUNOGLOBULIN IGA Routine 10/16/2024 3: 51 PM EDT [place] lesion Allergy Shortness of breath Moderate persistent asthma Multiple subsegmental pulmonary emboli without acute cor pulmonale (CMS/HCC V24, CMS/HCC V28) Unresolved pneumonia IMMUNOGLOBULIN IGG Routine 10/16/2024 3: 51 PM EDT [place] lesion Allergy Shortness of breath Moderate persistent asthma Multiple subsegmental pulmonary emboli without acute cor pulmonale (CMS/HCC V24, CMS/HCC V28) Unresolved pneumonia IMMUNOGLOBULIN IGM Routine 10/16/2024 3: 51 PM EDT [place] lesion Allergy Shortness of breath Moderate persistent asthma Multiple subsegmental pulmonary emboli without acute cor pulmonale (CMS/HCC V24, CMS/HCC V28) Unresolved pneumonia ALLERGEN RESPIRATORY PROFILE AREA 1 CT,[place] IGE Routine 10/16/2024 3:51 PM EDT [place] lesion Allergy Shortness of breath Moderate persistent [...] 10/22/2024 8:03 AM EDT [facility] Cockroach, [place], IgE <0.10 <0.10 kU/L 10/22/2024 8:03 AM EDT [facility] Cockroach, Nep[place] Class CLASS 0 10/22/2024 8:03 AM EDT [facility] [place], IgE <0.10 <0.10 kU/L 10/22/2024 8:03 AM EDT [facility] [place] Class CLASS 0 10/23/19 25 8:03 AM [...] 10/22/2024 8:03 AM EDT [facility] [place] ([place]), IgE <0.10 <0.10 kU/L 10/22/2024 8:03 AM EDT [facility] [place] ([place]) Class CLASS 0 10/22/2024 8:03 AM EDT [facility] [place]., [place], IgE <0.10 <0.10 kU/L 10/22/2024 8:03 AM EDT [facility] [place], [place] Class CLASS 0 10/22/2024 [...] 0 10/22/2024 8:03 AM EDT [facility] [place], IgE <0.10 <0.10 kU/L 10/22/2024 8:03 AM EDT [facility] [place] Class CLASS 0 10/22/2024 8:03 AM EDT [facility] [place], IgE <0.10 <0.10 kU/L 10/22/2024 8:03 AM EDT [facility] [place] Class CLASS 0 10/22/2024 8:03 AM EDT [...] 10/22/2024 8:03 AM EDT [facility] Sheep [place], IgE <0.10 <0.10 kU/L 10/22/2024 8:03 AM EDT [facility] [place] Class CLASS 0 2024 8:03 AM EDT [facility] [place], IgE <0.10 <0.10 kU/L 10/22/2024 8:03 AM EDT [facility] [place] Class CLASS 0 10/22 8:03 AM EDT [facility] [place], IgE <0.10 <0.10 kU/L 10/22/2024 8:03 AM EDT [facility] [place] Class CLASS 0 025 8:03 AM EDT [facility] [place], IgE <0.10 <0.10 kU/L 10/22/2024 8:03 AM EDT [facility] [place] Class CLASS 0 8:03 AM EDT [facility] IgE 45.5 <114.0 IU/mL 10/22/2024 8:03 [...] >100.0 Very High Level Test performed at [facility], [address], [place] [address] Cathy Llanos MD, PhD - Forensic Examiner Blood Venous blood specimen / Unknown Venipuncture / Unknown 10/16/2024 3:51 PM EDT 10/16/2024 3:51 PM EDT Dago Gramajo MD LAB BLOOD ORDERABLES Final Result [facility] [address] [place] [address] * (ABNORMAL) Hypersensitivity pneumonitis evaluation (10/16/2024 3:51 PM EDT) Allergen Saccharopolyspora rectivirgula NOT DETECTED 10/26/2024 4:36 PM EDT [facility] Comment: Reference Range: NOT DETECTED Allergen Saccharomonospora viridis NOT DETECTED 10/26/2024 4:36 PM EDT [facility] Comment: Reference Range: NOT DETECTED Test Performed at: [facility] [address] [phone] Erasto Lee MD, PhD, AYO Allergen Thermoactinomyces candidus NOT DETECTED 10/26/2024 4:36 PM EDT [facility] Comment: Reference Range: NOT DETECTED Allergen Thermoactinomyces sacchari NOT DETECTED 10/26/2024 4:36 PM EDT [facility] Comment: Reference Range: NOT DETECTED Allergen Thermoactinomyces vulgaris NOT DETECTED 10/26/2024 4:36 PM EDT [facility] Comment: Reference Range: NOT DETECTED Aureobasidium pullulans (M12) IgG <13.6 <13.6 mcg/mL 10/26/2024 4:36 PM EDT [facility] Alternaria alternata (M6) IgG <13.6 <13.6 mcg/mL 10/26/2024 4:36 PM EDT [facility] Allergen Aspergillus fumigatus NOT DETECTED 10/26/2024 4:36 PM EDT [facility] Comment: Reference Range: NOT DETECTED Cladosporium [...] of this test have been determined by [facility]. This test should not be used for diagnosis without confirmation by other medically established means. Test Performed at: [facility] [address] [address] Erasto Lee MD, PhD, AYO Blood Venous blood specimen / Unknown Venipuncture / Unknown 10/16/2024 3:51 PM EDT 10/16/2024 3:51 PM EDT us Dago Gramajo MD LAB BLOOD ORDERABLES Edite d Result - Final [facility] [address] [place] [address] * (ABNORMAL) Sedimentation rate (10/16/2024 3:51 PM EDT) Sed Rate 45(H) 0 - 20 mm/hr LAB HEMETOLOGY METHOD 10/16/2024 7:20 PM EDT [facility] Blood Venous blood specimen / Unknown Venipuncture / Unknown 10/16/2024 3:51 PM EDT 10/16/2024 3:51 PM EDT us Dago Gramajo MD LAB BLOOD ORDERABLES Final Result [facility] [address] [place] [address], [place] [phone] * (ABNORMAL) Complete blood count (10/16/2024 3:51 PM EDT) [facility] WBC 7.8 4.8 - 10.8 K/mcL LAB HEM[facility]OLOGY [facility] RBC 4.70 3.80 - 4.80 M/mcL LAB HEMETOLOGY METHOD 10/16/2024 7[facility] Hemoglobin 13.4 11.5 - 16.0 g/dL LAB HEMETOLOGY METHOD 10/16/2024 7:05 PM [facility] Hematocrit 42.3 35.0 - 47.0 % LAB HEMETOLOGY METHOD 10/16/2024 7:05 PM [facility] MCV 89.2 79.0 - 98.0 FL LAB HEMETOLOGY METHOD 10/16/2024 7:05 PM [facility] MCH 28.3 27.0 - 32.0 pcg LAB HEMETOLOGY METHOD 10/16/2024 7:05 PM [facility] MCHC 31.7(L) 32.0 - 37.0 g/dL LAB HEMETOLOGY METHOD 10/16/2024 7:05 PM [facility] RDW 12.9 11.0 - 15.0 % LAB HEMETOLOGY METHOD 10/16/2024 7:05 PM [facility] Platelets 365 130 - 400 K/mcL LAB HEMETOLOGY METHOD 10/16/2024 7:05 PM [facility] MPV 10.1 7.0 - 11.0 FL LAB HEMETOLOGY METHOD 10/16/2024 7:05 PM [facility] NRBC 0.0 <1.0 % LAB HEMETOLOGY METHOD 10/16/2024 7:05 PM [facility] NRBC Absolute 0.00 <0.10 K/mcL LAB HEMETOLOGY METHOD 10/16/2024 7:05 PM EDT [facility] Blood Venous blood specimen / Unknown Venipuncture / Unknown 10/16/2024 3:51 PM EDT 10/16/2024 3:51 PM EDT us Dago Gramajo MD LAB BLOOD ORDERABLES Final Result [facility] [address] [place] [address], [place] [phone] * Immunoglobulin IgE (10/16/2024 3:51 PM EDT) IgE 48.4 0.0 - 158.0 I Unit/mL LAB CHEMISTRY METHOD 10/16/2024 9:24 PM EDT [facility] Blood Venous blood specimen / Unknown Venipuncture / Unknown 10/16/2024 3:51 PM EDT 10/16/2024 3:51 PM EDT us Dago Gramajo MD LAB BLOOD ORDERABLES Final Result Performing Organization Address [facility]/ZIP Co de Phone Number [facility] [address] [place] [address], [place] [phone] * Immunoglobulin IgA (10/16/2024 3:51 PM EDT) IgA 298 61 - 348 mg/dL LAB CHEMISTRY METHOD 10/16/2024 8:11 PM EDT [facility] Blood Venous blood specimen / Unknown Venipuncture / Unknown 10/16/2024 3:51 PM EDT 10/16/2024 3:51 PM EDT us Dago Gramajo MD LAB BLOOD ORDERABLES Final Result Performing Organization Address City/[facility]/ZIP Co de Phone Number [facility] [address] [place] [address], [place] [phone] * Immunoglobulin IgM (10/16/2024 3:51 PM EDT) IgM 121 23 - 259 mg/dL LAB CHEMISTRY METHOD 10/16/2024 8:11 PM EDT [facility] Blood Venous blood specimen / Unknown Venipuncture / Unknown 10/16/2024 3:51 PM EDT 10/16/2024 3:51 PM EDT us Dago Gramajo MD LAB BLOOD ORDERABLES Final Result [facility] [address] [place] [address], [place] [phone] * Immunoglobulin IgG (10/16/2024 3:51 PM EDT) Pathologist [facility] Total IgG 1,240 549 - 1,584 mg/dL LAB CHEMISTRY METHOD 10/16/2024 8:11 PM EDT [facility] Blood Venous blood specimen / Unknown Venipuncture / Unknown 10/16/2024 3:51 PM EDT 10/16/2024 3:51 PM EDT us Dago Gramajo MD LAB BLOOD ORDERABLES Final Result [facility] [address] [place] [address], [place] [phone] * (ABNORMAL) Basic metabolic panel (10/16/2024 3:51 PM EDT) Sodium 136 133 - 145 mmol/L LAB CHEMISTRY METHOD 10/16/2024 8:11 PM EDT [facility] Potassium 4.4 3.5 - 5.5 mmol/L LAB CHEMISTRY METHOD 10/16/2024 8:11 PM EDT [facility] Chloride 104 96 - 110 mmol/L LAB CHEMISTRY METHOD 10/16/2024 8:11 PM [facility] CO2 27 21 - 32 mmol/L LAB CHEMISTRY METHOD 10/16/2024 8:11 PM [facility] Anion Gap 5 3 - 11 LAB CHEMISTRY METHOD 10/16/2024 8:11 PM [facility] Glucose 89 70 - 100 mg/dL LAB CHEMISTRY METHOD 10/16/2024 8:11 PM [facility] BUN 9 5 - 25 mg/dL LAB CHEMISTRY METHOD 10/16/2024 8:11 PM [facility] Creatinine 1.11(H) 0.50 - 1.10 mg/dL LAB CHEMISTRY METHOD 10/16/2024 8:11 PM [facility] eGFR 62 >=60 mL/min/1. 73m2 LAB CHEMISTRY METHOD 10/16/2024 8:11 PM [facility] Comment:Calculation based on the Chronic Kidney Disease Epidemiology Collaboration (CKD-EPI) equation refit without adjustment for race. BUN/Creatinine Ratio 8.1 LAB CHEMISTRY METHOD 10/16/2024 8:11 PM [facility] Calcium 9.4 8.5 - 10.5 mg/dL LAB CHEMISTRY METHOD 10/16/2024 8:11 PM [facility] Blood Venous blood specimen / Unknown Venipuncture / Unknown 10/16/2024 3:51 PM EDT 10/16/2024 3:51 PM EDT Dago Gramajo MD LAB BLOOD ORDERABLES Final Result [facility] [address] [place] [address], [place] [phone] * Cervical Cancer Screening: HPV (08/26/2021) Pathologist [facility] Cervical Cancer Screening: HPV abstracted, negative [...] active code status orders. Care Teams Supervisor Shipping Relationship Specialty Start Date End Date Lynne Jean MD [address] [place] [address] PCP - General Internal Medicine 05/28/24
--- OUTSIDE RECORDS SUMMARY | 2024-12-09 16:39 | XMS_ITS | Patient Health Record ---
Author Organization [facility] Address [address] [place] [address] Care Team Providers Care Auto Fleet Maintenance Manager Name Role Phone Lynne Jean Primary Care [...] Orally flora ry 12hrs as needed Active Wptzhjrzhk-PYWT-Flpcvuzn 50-325-40 MG 1 tablet as needed Orally [...] Problem Status W/U Status Risk Notes Problem Plantarflexion deformity of right foot (finding) (1184942892088080) Equinus deformity of right foot (M21.6X1) Active confirmed Problem Plantarflexion deformity of left foot (finding) (9582377018863362) Equinus deformity of left foot (M21.6X2) Active [...] Coverage Start Date Coverage End Date [employer] [address] [address] [place] [address] [id number] Juan A Ferreira Self - patient is [...] ctomy and fusion 2006 Laparoscopy, cholecystectomy 08/17/16 [place] Breast Reduction 2000 Remove tonsils adenoids, under 12 Total disc Arthrp Ant Apw/Discectomy CRV 2017
--- OUTSIDE RECORDS SUMMARY | 2024-12-09 16:40 | XMS_ITS | Clinical Summary ---
Author Organization [facility] Address [address] [place] [address] Phone Care Team Providers Care Hairspring Studder Name Role Phone Lynne Ramos MD Primary Care Provider [phone] Allergies Active Allergy Reactions Criticality Noted Date [...] EST Pheochromocytoma, unspecified laterality BASIC METABOLIC PANEL (BMP) Routine 02/17/2022 1:23 PM EST Pheochromocytoma, unspecified laterality from Last 3 Months or Most Recently Relevant to Health Maintenance Results * Creatinine, 24 hr urine (03/05/2022 9:21 AM EST) URINE CREATININE 96 mg/dL [facility] CREATININE OUTPUT 1,776 600 - 1,800 mg/total output [facility] Urine (Urine) 03/05/2022 9:2 1 AM EST 03/05/2022 9:23 AM EST us Dada Castro MD LAB URINE ORDERABLES Final Result [facility] [address] [place] [address] * Basic metabolic panel (02/17/2022 1:23 PM EST) SODIUM 140 135 - 145 mmol/L [facility] POTASSIUM 3.7 3.4 - 5.0 mmol/L [facility] CHLORIDE 101 98 - 108 mmol/L [facility] CO2 27 23 - 32 mmol/L [facility] BUN 11 8 - 25 mg/dL [facility] CREATININE 0.94 0.60 - 1.50 mg/dL [facility] GLUCOSE 81 70 - 110 mg/dL [facility] CALCIUM 9.9 8.5 - 10.5 mg/dL [facility] EGFR 77 >59 mL/min/1.7 3m2 [facility] Comment:Estimated glomerular filtration rate calculated using the CKD-EPI refit equation. ANION GAP 12 3 - 17 mmol/L [facility] 02/17/2022 1:23 PM EST 02/17/2022 4:34 PM EST us Daad Castro MD LAB BLOOD BKR ORDERABLES F inal Result [address] [address] from Last 3 Months or Most Recently Relevant to Health Maintenance Insurance [employer] NON NSPG PCP [employer] [place] [address] [place] [address] NON NSPG PCP [employer] NON NSPG PCP [employer] NON NSPG PCP S[employer] NON NSPG PCP [employer] NON NSPG PCP [employer] Care Teams Hairspring Studder Relationship Specialty Start Date End Date Lynne Ramos MD PCP - General Internal Medicine 02/14/22 Additional Source Comments The information contained in this document represents components of the legal health record. It is not the complete legal health record.[facility]
== END 2024-12-09 16:48 | disposition home or self-care (01) ==
LOC: HO.HMCFM 15:25
PROVIDERS: PCP Internal Medicine; Visit Provider Internal Medicine
DX: J40 Bronchitis, not specified as acute or chronic (principal); M50.30 Other cervical disc degeneration, unspecified cervical region; Z68.41 Body mass index [BMI] 40.0-44.9, adult; I10 Essential (primary) hypertension

== ENCOUNTER 2025-01-16 13:46 | Outpatient (AMB) | payer OTHER, SELFPAY ==
--- NOTE | 2025-01-16 14:12 | A.OFFVIS_ITS ---
Vital Signs 01/16/25 14:13 Height 5 ft 4 in Weight 251 lb 5.231 oz BMI 43.1 BP 130/78 Blood Pressure Location Lt brachial Position Sitting Pulse 73 Pulse Source Pulse Oximeter Pulse Oximetry (%) 97 Oxygen Delivery Method Room Air Intake Visit Reasons: Asthma General Engineer Required: No Accompanied by: Self / Same As Patient Allergies omeprazole Allergy (Mild, Verified 01/16/25 14:17) Rash Sulfa (Sulfonamide Antibiotics) Allergy (Unknown, Verified 01/16/25 14:17) Rash tramadol Allergy (Unknown, Verified 01/16/25 14:17) Rash venlafaxine (From Effexor) Allergy (Unknown, Verified 01/16/25 14:17) Rash HPI Comments Details: The patient is a 49 year woman with a known history of asthma who apparently was in her usual state health until sometime in January which started developing worsening respiratory complaints. She that she was having flu-like symptoms. Ultimately symptoms worsen. She started developing pleuritic chest discomfort. she had an evaluation in an x-ray sometime beginning of 02/26/2024 which I personally reviewed with some haziness in the right hemithorax but no overt airspace disease. Ultimately she developed worsening symptoms and she ended up going to the [facility] ER. There she did undergo a CTA demonstrating bilateral segmental and subsegmental PEs in addition to bilateral airspace disease and consolidations. She was admitted to the hospital placed on Xarelto and we given antibiotics overall she feels better from the respiratory complaints she was having. She did follow-up with Hematology and had a full hypercoagulable workup and she will be doing that soon. in addition to that an echocardiogram has been ordered. The patient understands and Xarelto will not be resolving the clots and that usually takes around 6-8 weeks to completely resolve. Therefore some point will have to follow-up with a repeat CT scan. The patient in the meantime having daytime drowsiness. Her Fairmount score is elevated 12/30. Based on her significant lower extremity edema and cardiovascular risk factors we will go ahead and request a sleep study. During the visit we also underwent a 6 minute walk test the patient did well although she was tachycardic oxygen was stable 99% which is reassuring. During the exam she did have some wheezing on examination at this point will going to optimize her respiratory therapy. I do believe Trecalliegy is a good option for her but it was too expensive so we went ahead and start her on Wixela. 04/12/2024 the patient is here for a pulmonary follow-up visit. Since we last spoke the patient was exposed to RSV in her family. Then after she started developing worsening cough shortness breath chest tightness and now increased mucus production. Moderate severity. Having hard time sleeping. Has a raspy voice. Her sputum is greenish in color. We were able to get a sputum sample an d send it to the laboratory. She does have wheezing on examination. She does not feel good. She continues in the anticoagulation. 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 She does have 2 daughters. One of her daughters does take estrogen for control and I did advise her to consider stopping her estrogen while she waits till we get tested. In the meantime she does have rhonchi wheezing on exam. May have I postviral bacterial lower respiratory infection. Will treated for pneumonia at this time. Will give her doxycycline Vantin she will need some prednisone. Although with her significant wheezing will give her Solu-Medrol today. The patient did have a CT scan last back in February the diagnosed with pulmonary emboli. She is going to bring a copy to download. She also had airspace disease. Will plan to repeat a CT scan in 4-6 weeks to address her thromboembolic disease and also the airspace disease. 04/25/2024 the patient is here for a pulmonary sick visit. She still not 100%. She had called because she was still feeling under the weather and center another course of prednisone 60 mg with taper and also a course of azithromycin. She is down to 50 mg of prednisone at this time. She is starting to feel better. We did check her oxygen again walking and she did well. Her exam s ignificantly better without any significant wheezing or rhonchi or crackles. Although she still diminished. She will continue to stay out of work this week and then hopefully go to work starting Monday. She did bring a copy of her CT scan that she had when she had the PEs. The patient will also undergo a repeat CT scan sometime in June to follow up the resolution of the clots. She continues use her respiratory therapy with good effect. I do hope that she does a little better. Because of all the prednisone she is having hard time sleeping. Therefore she can use Ambien as needed for sleep. 06/17/2024 the patient is here for a pulmonary follow-up visit. Overall she is feeling better finally. The patient had been sick for several months. She is still having raspiness of the voice but she is significantly better. She has been noticing though increasing shortness of breath and lower extremity edema. She also had an elevated blood pressure. She did have increased salt intake over the weekend specially for mother's day weekend. She is going to take additional Lasix when she goes home. I did advise her for her to take up to 3 days. She continues on the Xarelto. We did look at her CT scan that she has had recently. It appears that all the pulmonary emboli have resolved. Although, she understands that she needs to stay on the blood thinner. The Xarelto is very expensive for her and does not only issue with it. She does not have any minor major bleeding with it. She is going to follow-up with her wet process miller. She does have a genetic distribution for clotting therefore I do recommend she stay on some anticoagulation. After the duration of therapy she can consider prophylactic Xarelto if that is a possibility for her. She will talk to the wet process miller. The patient also had an echocardiogram which is reassuring except for some diastolic dysfunction and some septal hypertrophy. We did talk about the importance of controlling the double product in order to minimize further hypertrophy of her muscle. Her CT scan also demonstrated increased cardiac size cardiomegaly most likely due to that. The patient did not have her sleep study. She continues to have significant sleep apnea with an elevated Fairmount score. She has a reschedule it. She understands all these cardiovascular conditions are either worsen or results of the untreated sleep apnea. 08/16/2024 the patient is here for a pulmonary follow-up visit. She has been struggling with her breathing. Has had significant chest tightness wheezing and also raspiness of the voice. She was seen by Pulmonary recently and she was taken off the Wixela because of the raspiness of the voice. Although the breathing is not any better. She has significant chest tightness and wheezing. She also has significant allergies. She may be a good candidate for biologics. In the meantime will go ahead and switch her from a powdered inhaler 2 Breztri to help her with the bronchodilation. The patient does have asthma COPD overlap syndrome. The patient also did have a CT scan of the chest that was done June 2024 which I personally reviewed. The patient did have some atelectasis at the bases but otherwise reassuring CAT scan. She continues to have daytime drowsiness. Her Fairmount score is elevated 24. Unfortunately she still has a reschedule her sleep study that she has not had yet. Therefore, will have her get some pulmonary function studies have her follow-up in 3 months the patient should get some blood work as well. We can talk about biologics further specially if she continues to be symptomatic during the next visit. 10/23/2024 the patient is here for sick visit. She has been having hard time with the breathing. Significant coughing chest congestion. Moderate to severe. She has a hard time sleeping. She has been on the Breztri inhaler with only minimal response. She is still waiting for her nebulizer. Her current nebulizers broken. The patient has been on multiple courses of prednisone. She was supposed to have blood work but she has not had his as of yet. We were able to get a sputum for culture sent to the lab. In the meantime we talked that if she continues to be symptomatic we can consider bronchoscopy for further evaluation of the airways. In the meantime though the patient will be started on nebulized therapy. Will switch her to nebulized medication such as Brovana and budesonide for better administration. Also will request an Acapella valve for CPT therapy and mucus clearance. The patient has been on multiple courses of prednisone. It appears that her allergy testing so only minimally abnormal without any significant eosinophils or significant IgE elevations. 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 She understands this is hard to treat. I do believe she will do well on Tezspire. Will go ahead and start the process to get her on the shot. In the meantime she has significant wheezing and I will send another course of prednisone. The patient also will get a new nebulizer in order for her to start her nebulized therapy. She will follow-up in couple weeks. If she has any worsening symptoms she can always call for further recommendations. She should have the blood work done. 11/08/2024 the patient is here for pulmonary follow-up visit. The patient overall has been doing fair. She is actually doing little bit better. She did start the test prior and she also started the Brovana and the budesonide nebs. She seems to be tolerating them well. She is still coughing she still needs cough medication. 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 She does have a lot of indoor plans because of her mother. She is going to try to move the plans to a place where she is not exposed to. She has a also be careful with working with outdoor plans as well. The patient also has a be careful with basement. She does have a running the humidifier. She is going to get an air purifier. Also needs to look for other places where she going to be exposed to mold including work related exposures. In the meantime she will continue with the current respiratory therapy says since effective in beneficial. We can always consider adding a long-acting muscarinic antagonist if she continues to have symptoms. The patient also has daytime drowsiness. She needs to undergo a sleep study. We still waiting for her to reschedule it. Hopefully when she starts feeling better she will do so. Will follow-up in 3-4 months if he has any issues prior to this she can always call for further recommendations. 01/16/2025 the patient is here for pulmonary follow-up visit. Overall she is making some improvement. Her cough is still there but her wheezing chest tightness is better. The patient has been taking the test prior with good results. She continues on nebulized therapy. She could not get the 1st generation antihistamine, chlorpheniramine. But I will go ahead and send it to a different pharmacy to make sure that she can get it. In the meantime will start her on gabapentin for neurogenic cough. And the patient can also consider starting Daliresp as alternatives to prednisone. Will try to minimize the need for prednisone. She is taking a GLP 1 and she is exercising regularly. She is motivated which is excellent. She continues on the Eliquis. At this point if the patient continues to be symptomatic and coughing will plan for bronchoscopy. She is also contemplating going to [facility] for a 2nd opinion which I believe is a good idea as well. Will follow-up in 3 4 months if she has any issues she can always call for further recommendations. If she wants to tolerated Daliresp we can always call and I can send it to the pharmacy. [facility]LY [facility], [facility] Medical History (Updated 10/23/24 @ 18:29 by Dago Gramajo MD) Allergy Restrictive lung disease Tracheobronchitis Pneumonia Asthma Vitamin D deficiency Right shoulder pain Non-infective diarrhea Mixed anxiety and depressive disorder Mild persistent asthma Hyperlipidemia Headache Cyst of nasopharynx Cobalamin deficiency Cervical radiculopathy Cerebral arterial aneurysm Body mass index 40.0-44.9, adult ADHD Family History Father Rheumatoid arthritis Other FH: mental illness Social History Household Members: Family Housing: House Alcohol intake: former Patient Tobacco Use Status: Former Tobacco user Cigarette Packs Per Day: 1 Years Smoked: 5 e-Cigarette/Vaping Use: Never Used Current occupational status: employed 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 Current occupational exposures/hazards: No Gender identity: Female Cognitive needs: No Hearing needs: No Vision needs: No Review of Systems Const Denies chills, Reports daytime sleepiness, Reports difficulty sleeping, Denies fatigue, Denies fever(s) and Reports snoring Eyes Reports no additional complaints ENT Denies dizziness and Denies hoarseness Card Denies chest pain, Reports leg edema, Denies lightheadedness, Denies palpitations, Reports dyspnea on exertion, Denies orthopnea and Denies other Resp Denies change in phlegm color, Denies chest congestion, Reports cough, Denies excessive phlegm production, Reports dyspnea on exertion, Reports snoring and Reports wheezing GI Denies hematochezia and Denies change in stool character Musc Denies abnormal gait, Denies muscle weakness, Denies numbness, Denies radiating pain into limb and Denies tingling Skin/Breast Denies rash Neuro Denies abnormal gait, Denies dizziness, Denies numbness and Denies tingling Endo Denies fatigue and Denies palpitations Amish/Lymph Reports no additional complaints Aller/Immun Reports wheezing Physical Exam Vital Signs: Last Vital Signs Pulse 73 01/16/25 14:13 BP 130/78 01/16/25 14:13 Pulse Ox 97 01/16/25 14:13 Oxygen Delivery Method Room Air 01/16/25 14:13 BMI result Body Mass Index 43.1 Const General: comfortable HEENT Head: Yes normocephalic Neck Neck: Yes supple Chest Chest palpation & inspection: normal inspection of the chest Resp Effort & Inspection: normal respiratory effort and No prolonged expiratory phase Auscultation: no wheezes and diminished lung sounds Cardio Heart sounds: S1 normal heart sound present and S2 normal heart sound present GI Palpation (GI): Soft to palpation Skin General skin exam: no rashes or lesions noted Extrem General: No clubbing, No cyanosis and Yes edema Assessment & Plan Assessment & Plan (1) Pulmonary embolism: Code(s): I26.99 - Other pulmonary embolism without acute cor pulmonale Category: Medical Qualifiers: Pulmonary embolism type: multiple subsegmental (without acute cor pulmonale) Qualified Code(s): I26.94 - Multiple subsegmental thrombotic pulmonary emboli without acute cor pulmonale (2) Shortness of breath: Code(s): R06.02 - Shortness of breath Category: Medical (3) Asthma: Code(s): J45.909 - Unspecified asthma, uncomplicated Category: Medical Qualifiers: Asthma complication type: with acute exacerbation Asthma persistence: persistent Asthma severity: severe Qualified Code(s): J45.51 - Severe persistent asthma with (acute) exacerbation (4) ROGELIO (obstructive sleep apnea): Code(s): G47.33 - Obstructive sleep apnea (adult) (pediatric) Category: Medical Plan BUdesonide nebs BID Brovana BID Tezspire ROMEO as needed continue Xorelto. Home PSG -awaiting to reschedule start gabapentin start chlorpherinamine consider Daliresp PFTs next visit F/U 3-4 months Medications: New gabapentin 300 mg PO BEDTIME 30 caps 0RF 30 days Changed From chlorpheniramine maleate ER 12 mg PO Q12H 30 days 60 tabs 4RF itching To chlorpheniramine maleate ER 12 mg PO Q12H 180 tabs 4RF itching 90 days Coding Level of Care Code Est Pt Level 4 (42905) Diagnoses Multiple subsegmental pulmonary emboli without acute cor pulmonale I26.94 Pulmonary embolism type: multiple subsegmental (without acute cor pulmonale) Shortness of breath R06.02 Severe persistent asthma with acute exacerbation J45.51 Asthma complication type: with acute exacerbation Asthma persistence: persistent Asthma severity: severe ROGELIO (obstructive sleep apnea) G47.33 Time Spent (min) 17
[2025-01-16 14:13] VITALS: BP 130/78; PULSE 73; O2SAT 97; BMI 43.1
--- OUTSIDE RECORDS SUMMARY | 2025-01-16 21:05 | XMS_ITS | Patient Health Record ---
Author Organization [facility] Address [address] [place] [address] Care Team Providers Care Core Fitter Name Role Phone Lynne Jean Primary Care [...] Orally flora ry 12hrs as needed Active Lpawclipov-JJHC-Vnsrtswr 50-325-40 MG 1 tablet as needed Orally [...] Problem Plantarflexion deformity of right foot (finding) (7602670522490935) Equinus deformity of right foot (M21.6X1) Active confirmed Problem Plantarflexion deformity of left foot (finding) (8687366009914687) Equinus deformity of left foot (M21.6X2) Active [...] Start Date Coverage End Date [employer] [address] [address] [place] [address] [id number] Juan A Ferreira Self - patient is [...] ctomy and fusion 2006 Laparoscopy, cholecystectomy 08/17/16 CA Breast Reduction 2000 Remove tonsils adenoids, under 12 Total disc Arthrp Ant Apw/Discectomy CRV 2017
--- OUTSIDE RECORDS SUMMARY | 2025-01-16 21:06 | XMS_ITS | Clinical Summary ---
Author Organization [facility] [address] [facility] Address [address] [place] [address] Phone Care Team Providers Care Industrial Hygienist Name Role Phone Lynne Jean MD Primary Care Provider [phone] Allergies Active Allergy Reactions Criticality Noted Date [...] patient's history, symptoms may be related to [place]'s for which she is undergoing a work-up [...] older (Afluria) 3 years and older 11/23/[address] [employer] SARS-CoV-2 COVID-19, mRNA, LNP-S, preservative free 03/29/2021,02/18/2020,01/26/2020 Td Tetanus diptheria (Tdvax) 7yo and older 07/16 Tdap Tetanus diptheria acell ular pertussis (Boostrix; Adacel) 7yo and older 10/22/2019,08/23/2011 Surgical History Surgery Date Site/Laterality Comments NECK SURGERY 2006 Right PROCEDURE: HISTORICAL NECK SURGERY; COMMENT: C3-4 discectomy and fusion, Dr. Will OTHER SURGICAL HISTORY 2012 PROCEDURE: ENDOMETRAIL POLYP [facility] PATHOLOGY EXAM SECTION 2008 PROCEDURE: HISTORICAL TONSILLECTOMY ADENOIDECTOMY, BILATERAL MYRINGOTOMY AND TUBES PROCEDURE: NM TONSILLECTOMY & ADENOIDECTOMY <AGE 12 BREAST REDUCTION 2000 PROCEDURE: NM BREAST REDUCTION CHOLECYSTECTOMY 08/17/2016 PROCEDURE: NM LAPAROSCOPY SURG CHOLECYSTECTOMY; COMMENT: Laparoscopic cholecystectomy; [place]; Dr. Matos OTHER SURGICAL HISTORY PROCEDURE: TOTAL DISC ARTHRP ANT APW/DISCECTOMY CRV 3+; COMMENT: 2017 OTHER SURGICAL HISTORY PROCEDURE: NM ANESTHESIA CERVICAL SPINE & CORD NOS Medical [...] Orientation Straight 02/22/2024 11 :53 PM EST Last Filed Vital Signs Vital Sign [...] EDT Office Visit Obstetrics and Gynecology - [address] [address] Angélica Mendoza, [facility] [address] [place] [address] Health Maintenance Due Date Last Done Comments Breast Cancer Screening 1977 Colorectal Cancer Screening: Colonoscopy 1977 Drug Screen 1977 Non-Opioid Controlled Substance Agreement 1977 Hepatitis B Vaccines (1 of 3 [...] METABOLIC PANEL Routine 10/16/2024 3:[address] [address] [place] lesion Allergy Shortness of breath Moderate persistent asthma Multiple subsegmental pulmonary emboli without acute cor pulmonale (CMS/HCC V24, CMS/HCC V28) Unresolved pneumonia HM HPV Routine 08/26/2021 LIPID PANEL Routine 09/29/2020 from Last 3 Months or Most Recently Relevant to Health Maintenance Results * (ABNORMAL) Basic metabolic panel (10/16/2024 3:51 PM EDT) Sodium 136 133 - 145 mmol/L LAB CHEMISTRY METHOD 10/16/2024 8:11 PM EDT [facility] Potassium 4.4 3.5 - 5.5 mmol/L LAB CHEMISTRY METHOD 10/16/2024 8:11 PM EDT [facility] Chloride 104 96 - 110 mmol/L LAB CHEMISTRY METHOD 10/16/2024 8:11 PM EDT [facility] CO2 27 21 - 32 mmol/L LAB CHEMISTRY METHOD 10/16/2024 8:11 PM EDT [facility] Anion Gap 5 3 - 11 LAB CHEMISTRY METHOD 10/16/2024 8:11 PM EDT [facility] Glucose 89 70 - 100 mg/dL LAB CHEMISTRY METHOD 10/16/2024 8:11 PM EDT [facility] BUN 9 5 - 25 mg/dL LAB CHEMISTRY METHOD 10/16/2024 8:11 PM EDT [facility] Creatinine 1.11(H) 0.50 - 1.10 mg/dL LAB CHEMISTRY METHOD 10/16/2024 8:11 PM EDT [facility] eGFR 62 >=60 mL/min/1. 73m2 LAB CHEMISTRY METHOD 10/16/2024 8:11 PM EDT [facility] Comment:Calculation based on the Chronic Kidney Disease Epidemiology Collaboration (CKD-EPI) equation refit without adjustment for race. BUN/Creatinine Ratio 8.1 LAB CHEMISTRY METHOD 10/16/2024 8:11 PM [facility] Calcium 9.4 8.5 - 10.5 mg/dL LAB CHEMISTRY METHOD 10/16/2024 8:11 PM EDT [facility] Blood Venous blood specimen / Unknown Venipuncture / Unknown 10/16/2024 3:51 PM EDT 10/16/2024 3:51 PM EDT Dago Gramajo MD LAB BLOOD ORDERABLES Final Result [facility] [address] [place] [address], * Cervical Cancer Screening: HPV (08/26/2021) Cervical Cancer Screening: HPV abstracted, negative [place] Provider HEALTH MAINTENANCE Final Result * (ABNORMAL) [...] currently active code status orders. Care Teams Industrial Hygienist Relationship Specialty Start Date End Date Lynne Jean MD [address] [place] [address] PCP - General Internal Medicine 05/28/24
--- OUTSIDE RECORDS SUMMARY | 2025-01-16 21:06 | XMS_ITS | Clinical Summary ---
Author Organization [facility] Address [address] [place] [address] Phone Care Team Providers Care Battery Checker Name Role Phone Lynne Rmaos MD Primary Care Provider Allergies Active Allergy [...] 9:21 AM EST) URINE CREATININE 96 mg/dL [facility] CREATININE OUTPUT 1,776 600 - 1,800 mg/total output [facility] Urine (Urine) 03/05/2022 9:2 1 AM EST 03/05/2022 9:23 AM EST us Dada Castro MD LAB URINE ORDERABLES Final Result [facility] [address] [place] [address] * Basic metabolic panel (02/17/2022 1:23 PM EST) SODIUM 140 135 - 145 mmol/L [facility] POTASSIUM 3.7 3.4 - 5.0 mmol/L [facility] CHLORIDE 101 98 - 108 mmol/L [facility] CO2 27 23 - 32 mmol/L [facility] BUN 11 8 - 25 mg/dL [facility] CREATININE 0.94 0.60 - 1.50 mg/dL [facility] GLUCOSE 81 70 - 110 mg/dL [facility] CALCIUM 9.9 8.5 - 10.5 mg/dL [facility] EGFR 77 >59 mL/min/1.7 3m2 [facility] Comment:Estimated glomerular filtration rate calculated using the CKD-EPI refit equation. ANION GAP 12 3 - 17 mmol/L [facility] 02/17/2022 1:23 PM EST 02/17/2022 4:34 PM EST us Dada Castro MD LAB BLOOD BKR ORDERABLES F inal Result [address] [address] from Last 3 Months or Most Recently Relevant to Health Maintenance Insurance [employer] NON NSPG PCP [facility] [address] [address] NON NSPG PCP [employer] [employer] NON NSPG PCP S[employer] [employer] NON NSPG PCP [facility] [employer] [facility] [address] [place], [place] [address]ENSE NON NSPG PCP [employer] NON NSPG PCP [facility] Care Teams Battery Checker Relationship Specialty Start Date End Date Lynne Ramos MD PCP - General Internal Medicine 02/14/22 Additional Source Comments The information contained in this document represents components of the legal health record. It is not the complete legal health record.[facility]
== END 2025-01-16 14:45 | disposition home or self-care (01) ==
LOC: HO.HPS 13:47
PROVIDERS: PCP Internal Medicine; Visit Provider Hospitalist
DX: I26.94 Multiple subsegmental thrombotic pulmonary emboli without acute cor pulmonale (principal); R06.02 Shortness of breath; J45.51 Severe persistent asthma with (acute) exacerbation; G47.33 Obstructive sleep apnea (adult) (pediatric)
CPT/HCPCS: 99214